=== PATIENT | male | born 1965 | race Caucasian/White ===

== ENCOUNTER 2016-11-09 22:49 | Inpatient (IN) | payer OTHER ==
[2016-11-09] MEDS ORDERED: DIPH,PERTUS(ACELL)TETVAC-LF 0.5 ML VIAL IM ONE (23:26)
[2016-11-09 23:56] LABS: Basophils % (A) 1 %; CH 34.1; CHCM 36.8; Eosinophils # (A) 0.1 k/uL (0-0.7); Eosinophils % (A) 1 %; HCT 38.5 % (39.0-53.0); HDW 2.82; HGB 13.4 gm/dL (13.0-17.5); Luc # (Auto) 0.12; Luc % (Auto) 2; Lymphocytes # (A) 1.9 k/uL (1.0-4.8); Lymphocytes % (A) 27 %; MCH 32.5 pg (25.0-35.0); MCHC 34.9 g/dL (31.0-37.0); MCV 93.1 fL (80.0-100.0); Mean Platelet Volume 7.9; Monocytes # (A) 0.4 k/uL (0-1.0); Monocytes % (A) 6 %; Neutrophils # (A) 4.5 k/uL (1.3-7.7); Neutrophils % (A) 63 %; RBC 4.13 m/uL (4.30-5.90); RDW 13.4 % (11.5-15.5)
--- NOTE | 2016-11-10 00:02 | XR ---
EXAM: XR Right Foot Complete, 3 or More Views CLINICAL HISTORY: Reason: Pain TECHNIQUE: Frontal, lateral and oblique views of the right foot. COMPARISON: No relevant prior studies available. FINDINGS: Bones/joints: Questionable fracture at the tip of distal phalanx of the third toe, best seen on image 1003 with 1 mm separation. Deformed proximal phalanx of the great toe suggest prior trauma. No dislocation. Soft tissues: Moderate amount of soft tissue swelling and plantar aspect of distal metatarsal and proximal phalanges of the toes suggest contusion versus infectious etiologies. No soft tissue emphysema or radiopaque foreign object. IMPRESSION: Questionable fracture at the tip of distal phalanx of the third toe with 1 mm separation Moderate amount of soft tissue swelling and plantar aspect of distal metatarsal and proximal phalanges of the toes suggest contusion versus infectious etiologies.
[2016-11-10 00:07] LABS: ALT 43 U/L (21-72); Alkaline Phosphatase 66 U/L (38-126); Anion Gap 10 mmol/L; Blood Urea Nitrogen 13 mg/dL (9-20); C Reactive Protein 38.7 mg/L (<10.0); Calcium 9.5 mg/dL (8.4-10.2); Carbon Dioxide 22 mmol/L (22-30); Chloride 106 mmol/L (98-107); Glucose 180 mg/dL (74-99); Non-African American GFR(MDRD) >60 (>60 ml/min/1.73 sqM); Potassium 4.1 mmol/L (3.5-5.1); Sodium 138 mmol/L (137-145); Total Bilirubin 0.9 mg/dL (0.2-1.3); Total Protein 6.6 g/dL (6.3-8.2)
[2016-11-10] MEDS ORDERED: CEFEPIME 2 GM in SODIUM CHLORIDE 0.9% 50 ML IVPB STA (00:15)
[2016-11-10] MEDS ORDERED: ACETAMINOPHEN TAB 325 MG TAB PO PRN (00:18)
[2016-11-10] MEDS ORDERED: IBUPROFEN 400 MG TAB PO PRN (00:18)
[2016-11-10] MEDS ORDERED: NALOXONE 0.4 MG/ML 1 ML VIAL IV PRN (00:18)
[2016-11-10] MEDS ORDERED: HYDROcodone/APAP 5-325MG 1 EACH TAB PO PRN (00:18)
--- NOTE | 2016-11-10 00:18 | ED ---
Lower Extremity Injury HPI - General Chief Complaint: Extremity Injury, Lower Stated Complaint: Foot Pain Time Seen by Provider: 11/09/16 23:23 Source: patient, RN notes reviewed Mode of arrival: ambulatory Limitations: no limitations - History of Present Illness Initial Comments: 51-year-old male presents emergency Department with chief complaint of right foot wound, infection. Patient states that he stepped on a nail 3 days ago and did not note because he has neuropathy. Patient states he finally figure out because he started noticing his foot was swollen. Patient states she also notes redness. Patient states the nail still in the issue up until today. states his tetanus is not up-to-date. Patient denies any fevers or chills. Patient states he does make it hard to ambulate on his foot secondary to the wound. - Related Data Home Medications Medication Instructions Recorded Confirmed Olmesartan [Benicar] 20 mg PO DAILY 02/17/15 07/07/15 metFORMIN HCL [Glucophage] 500 mg PO BID 02/17/15 07/07/15 Omeprazole [PriLOSEC] 20 mg PO AC-BID 07/05/15 07/07/15 Allergies Allergy/AdvReac Type Severity Reaction Status Date / Time levofloxacin [From Levaquin] Allergy Swelling, Verified 11/09/16 23:00 RASH Penicillins Allergy Unknown Verified 11/09/16 23:00 Childhood Review of Systems ROS Statement: Those systems with pertinent positive or pertinent negative responses have been documented in the HPI. ROS Other: All systems not noted in ROS Statement are negative. Past Medical History Past Medical History: Diabetes Mellitus, GERD/Reflux, Hypertension History of Any Multi-Drug Resistant Organisms: None Reported Past Surgical History: Tonsillectomy Past Anesthesia/Blood Transfusion Reactions: No Reported Reaction Past Psychological History: No Psychological Hx Reported Smoking Status: Former smoker Past Alcohol Use History: Rare Additional Past Alcohol Use History / Comment(s): STARTED SMOKING AT 23 SMOKED LESS 1/2PPD QUIT 1989 Past Drug Use History: None Reported - Past Family History Mother Family Medical History: Cancer Father Family Medical History: Cancer General Exam Limitations: no limitations General appearance: alert, in no apparent distress Respiratory exam: Present: normal lung sounds bilaterally. Absent: respiratory distress, wheezes, rales, rhonchi, stridor Cardiovascular Exam: Present: regular rate, normal rhythm, normal heart sounds. Absent: systolic murmur, diastolic murmur, rubs, gallop, clicks Extremities exam: Present: other (Right foot there is no open wound on the plantar surface just proximal to the fifth digit there is extensive erythema and swelling of the right foot pedal pulses are equal bilaterally) Course Vital Signs 11/09/16 22:56 Temperature 97.6 F Pulse Rate 74 Respiratory 16 Rate Blood Pressure 149/71 O2 Sat by Pulse 96 Oximetry Medical Decision Making - Medical Decision Making 51-year-old male presented for right foot infection. Patient is diabetic and had nail in his foot. There is concerns for pseudomonas risk. Patient does have an ALLERGY to penicillin and Levaquin. Patient was started on cefepime at this time for cellulitis. - Lab Data Result diagrams: 11/09/16 23:46 11/09/16 23:46 Lab Results 11/09/16 11/09/16 Range/Units 23:46 23:46 WBC 7.0 (3.8-10.6) k/uL RBC 4.13 L (4.30-5.90) m/uL Hgb 13.4 (13.0-17.5) gm/dL Hct 38.5 L (39.0-53.0) % MCV 93.1 (80.0-100.0) fL MCH 32.5 (25.0-35.0) pg MCHC 34.9 (31.0-37.0) g/dL RDW 13.4 (11.5-15.5) % Plt Count 135 L (150-450) k/uL Neutrophils % 63 % Lymphocytes % 27 % Monocytes % 6 % Eosinophils % 1 % Basophils % 1 % Neutrophils # 4.5 (1.3-7.7) k/uL Lymphocytes # 1.9 (1.0-4.8) k/uL Monocytes # 0.4 (0-1.0) k/uL Eosinophils # 0.1 (0-0.7) k/uL Basophils # 0.0 (0-0.2) k/uL Sodium 138 (137-145) mmol/L Potassium 4.1 (3.5-5.1) mmol/L Chloride 106 (98-107) mmol/L Carbon Dioxide 22 (22-30) mmol/L Anion Gap 10 mmol/L BUN 13 (9-20) mg/dL Creatinine 0.80 (0.66-1.25) mg/dL Est GFR (MDRD) Af Amer >60 (>60 ml/min/1.73 sqM) Est GFR (MDRD) Non-Af >60 (>60 ml/min/1.73 sqM) Glucose 180 H (74-99) mg/dL Calcium 9.5 (8.4-10.2) mg/dL Total Bilirubin 0.9 (0.2-1.3) mg/dL ALT 43 (21-72) U/L Alkaline Phosphatase 66 (38-126) U/L C-Reactive Protein 38.7 H (<10.0) mg/L Total Protein 6.6 (6.3-8.2) g/dL Albumin 4.1 (3.5-5.0) g/dL Disposition Clinical Impression: Cellulitis of right foot, Puncture wound of skin from metal nail Disposition: ADMITTED IP TO THIS HOSP Condition: Fair Referrals: Corrine Cabezas MD [Primary Care Provider] - 1-2 days
[2016-11-10 00:23] LABS: AST 22 U/L (17-59)
[2016-11-10 01:57] VITALS: BMI 31.4
[2016-11-10 07:43] LABS: Glucose,Whole Blood 173 mg/dL (75-99)
[2016-11-10] MEDS: PANTOPRAZOLE 40 MG TABLET PO SCH ×2 (07:46→17:54)
[2016-11-10] MEDS: LOSARTAN 50 MG TAB PO SCH (07:46)
[2016-11-10] MEDS: CEFEPIME 2 GM in SODIUM CHLORIDE 0.9% 50 ML IVPB SCH ×2 (11:18→22:10)
[2016-11-10 11:37] LABS: Glucose,Whole Blood 160 mg/dL (75-99)
[2016-11-10] MEDS: HEPARIN SODIUM,PORCINE 5,000 UNIT/ML 1 ML VIAL SQ SCH ×2 (13:55→20:32)
[2016-11-10 16:58] LABS: Glucose,Whole Blood 209 mg/dL (75-99)
[2016-11-10] MEDS: INSULIN LISPRO (humaLOG) 300 UNIT/3 ML VIAL SQ SCH ×2 (17:17→20:36)
[2016-11-10 20:24] LABS: Glucose,Whole Blood 162 mg/dL (75-99)
[2016-11-11 06:59] LABS: Glucose,Whole Blood 187 mg/dL (75-99)
[2016-11-11] MEDS: INSULIN LISPRO (humaLOG) 300 UNIT/3 ML VIAL SQ SCH ×4 (07:21→20:52)
[2016-11-11] MEDS: PANTOPRAZOLE 40 MG TABLET PO SCH ×2 (07:22→17:42)
[2016-11-11] MEDS: LOSARTAN 50 MG TAB PO SCH (07:23)
--- NOTE | 2016-11-11 07:27 | HP ---
DATE OF ADMISSION: 11/10/2016 Chief complaint is right foot pain and injury. HISTORY OF PRESENT ILLNESS: This 51-year-old gentleman with a past medical history of multiple medical problems including type 2 diabetes, GERD, hypertension, peripheral neuropathy, history of nicotine dependence being followed by Dr. Cabezas in the outpatient setting, apparently stepped on a nail about 3 days ago. Patient did not notice, the patient apparently walking around with the nail in the shoe. Patient found the nail later in the shoe and the patient admitted for further evaluation. Patient had complaints of redness and some discomfort and also some discharge. There is no history of fever, rigors or chills. No history of headache, loss of consciousness. Past medical history is diabetes mellitus, GERD, hypertension, history of peripheral neuropathy. Medications prior to admission: 1. Metformin 500 mg p.o. b.i.d. 2. Prilosec 20 mg daily p.r.n. 3. Benicar 20 mg daily. 4. Glucosamine 1000 mg daily. Allergies are LEVAQUIN and PENICILLIN. FAMILY HISTORY: History of cancer in the family. SOCIAL HISTORY: Previous history of smoking, occasional alcohol. REVIEW OF SYSTEMS: ENT: No diminishing hearing. No diminished vision. CARDIOVASCULAR SYSTEM: No angina or palpitation. RESPIRATORY: No cough. GI: No nausea. : No dysuria. NERVOUS SYSTEM: Numbness as mentioned earlier. ASTHMA/IMMUNOLOGY: Negative. MUSCULOSKELETAL: As mentioned earlier. HEMATOLOGY: No history of anemia. ENDOCRINE: Diabetes mellitus. CONSTITUTIONAL: Negative. DERMATOLOGY: Negative. RHEUMATOLOGY: Negative. PSYCHIATRY: As mentioned earlier. PHYSICAL EXAM: Patient is alert and oriented x3. The pulse is 73, blood pressure 129/57, respirations 16, temperature is 98.1, pulse ox is 96% on room air. HEENT: Conjunctivae normal, oral mucosa moist. NECK: No jugular venous distension, no carotid bruit, no lymph node enlargement. CARDIOVASCULAR SYSTEM: S1, S2 muffled. RESPIRATORY: Breath sounds diminished at the bases. No rhonchi, no crackles. ABDOMEN: Soft, obese, nontender. No mass palpable. EXTREMITIES: Bilateral leg minimal swelling and as well as right foot swelling, erythema, tenderness and also discharge in the right distal foot also present. LYMPHATICS: No lymph node enlargement in the neck or axillae. NERVOUS SYSTEM: Higher functions as mentioned, moves all 4 limbs. Sensory abnormality in both lower limbs as well as peripheral neuropathy. SKIN: As mentioned. LABS: WBC is 7, hemoglobin is 13.4, glucose is 180. C-Reactive protein 38.7. ASSESSMENT: 1. Diabetic right foot infection with systemic inflammatory response syndrome, with accidentally stepping on a nail. 2. Diabetes mellitus type 2. 3. Peripheral neuropathy. 4. Mild thrombocytopenia. 5. History of gastroesophageal reflux disease. 6. History of hypertension. 7. Remote history of nicotine dependence. 8. Obesity with body mass index 31.5. 9. FULL CODE. RECOMMENDATION: In this 51-year-old gentleman who presented with multiple complex medical issues, will monitor the patient closely. Continue with the current medication and continue with symptomatic treatment. has been initiated. Will follow the cultures. Will obtain orthopedic and as well as Infectious Disease consultations. The foot x-ray has been done, which showed questionable fracture of the tip of the distal phalanx of the third toe with 1 mm separation with moderate amount of soft tissue swelling. The prognosis is guarded. Further recommendations to follow. See orders for further details. Counseling has been given. DVT prophylaxis. GI prophylaxis. Resume the home medications. Repeat labs. Follow up cultures. Discussed with the patient who understands. A copy of this will be forwarded to Dr. Cabezas who is the primary physician. VLADISLAV
[2016-11-11] MEDS: HEPARIN SODIUM,PORCINE 5,000 UNIT/ML 1 ML VIAL SQ SCH ×2 (07:28→20:52)
[2016-11-11 08:13] LABS: Basophils % (A) 0 %; CH 33.8; CHCM 37.4; Eosinophils # (A) 0.1 k/uL (0-0.7); Eosinophils % (A) 2 %; HCT 39.1 % (39.0-53.0); HDW 3.12; HGB 14.5 gm/dL (13.0-17.5); Hyperchromasia Slight; Luc # (Auto) 0.14; Luc % (Auto) 3; Lymphocytes # (A) 1.5 k/uL (1.0-4.8); Lymphocytes % (A) 30 %; MCH 33.6 pg (25.0-35.0); MCHC 37.1 g/dL (31.0-37.0); MCV 90.8 fL (80.0-100.0); Mean Platelet Volume 6.9; Monocytes # (A) 0.2 k/uL (0-1.0); Monocytes % (A) 5 %; Neutrophils # (A) 3.1 k/uL (1.3-7.7); Neutrophils % (A) 60 %; RBC 4.31 m/uL (4.30-5.90); RDW 12.9 % (11.5-15.5); WBC 5.2 k/uL (3.8-10.6); WBC (Perox) 5.35
[2016-11-11 08:19] LABS: Anion Gap 11 mmol/L; Blood Urea Nitrogen 13 mg/dL (9-20); Calcium 9.2 mg/dL (8.4-10.2); Carbon Dioxide 25 mmol/L (22-30); Chloride 103 mmol/L (98-107); Glucose 187 mg/dL (74-99); Non-African American GFR(MDRD) >60 (>60 ml/min/1.73 sqM); Potassium 4.5 mmol/L (3.5-5.1); Sodium 139 mmol/L (137-145)
--- NOTE | 2016-11-11 08:35 | CONS ---
DATE OF CONSULTATION: 11/10/2016 Reason for consultation in right foot infection. HISTORY OF PRESENT ILLNESS: The patient is a 51-year-old male who does have underlying diabetes mellitus and neuropathy. He has no sensation in the foot. The patient said that Friday morning his noticed some blood on the bathroom floor. When she checked over his foot, she noted there was a small blister at the base of the fifth toe. The patient did use his work boots and worked that day. The next morning, he noticed some blood on his socks. He continued to work same day; however, later on Friday night, the daughter noticed there was a nail in his shoe. Subsequently, the patient noticed the foot becoming more swollen, more red and no significant ( ) except some bleeding and drainage with worsening swelling, redness. He came to [facility] ER. The patient seen and evaluated by the ER physician. The patient did have an x-ray of the foot which did show the possibility of fracture of the distal phalanx of the third toe with 1 mm separation and some soft tissue swelling but no significant abnormality was noticed on the fifth toe. Patient maintained with cefepime. I was asked to see the patient for further recommendation regarding antibiotic therapy. REVIEW OF SYSTEMS: CONSTITUTIONAL: Positive for weakness, denies any high-grade fever. EYES: No complaint. ENT: No complaint. RESPIRATORY: No complaint. CARDIOVASCULAR: No complaint. GENITOURINARY: No complaint. GASTROINTESTINAL: No complaint. MUSCULOSKELETAL: As per HPI. HEMATOLOGY: per HPI. PSYCHOLOGICAL: No complaint. ENDOCRINE: Diabetes mellitus. NEUROLOGICAL: No complaint. PAST MEDICAL HISTORY: Diabetes mellitus, gastroesophageal reflux disease, hypertension. PAST SURGICAL HISTORY: Tonsillectomy. SOCIAL HISTORY: Remote history of smoking, quite back in 1989. Rarely drinks. No drug use. FAMILY HISTORY: Both parents had history of cancer. Allergies to PENICILLIN and LEVOFLOXACIN, tolerated cephalosporin without any problem. Medications include patient is currently on Tylenol, [place], cefepime 2 gm q.12, heparin, Motrin, Humalog, Cozaar, Narcan and Protonix. On examination, blood pressure is 129/57 with a pulse of 73, temperature 98.1. He is 96% on room air. General description is middle-aged male, lying in bed in no distress, no tachypnea or accessory muscle for respiration use. HEENT examination showed no pallor or scleral icterus, oral mucosa is moist. NECK: Trachea central, no thyromegaly. LUNGS: Unlabored breathing. Clear to auscultation anteriorly. No wheeze or crackle. HEART: S1, S2. Regular rate and rhythm. ABDOMEN: Soft. No tenderness, no guarding, no rigidity. Examination of the right foot ( ), redness mostly on the lateral aspect on the base of the fifth toe. There is a small superficial wound with some bleeding. Wound cultures were obtained. NEUROLOGICAL: Patient is awake, alert, oriented x3. LABS: Hemoglobin is 13.4, white count of 7.0 with BUN of 13, creatinine 0.80. ( ) DIAGNOSTIC IMPRESSION AND PLAN: 1. Patient with right foot cellulitis, traumatic started out as a trauma from a nail that has been walking on for almost 2 days with some significant cellulitis and wound, the likely cause would be the positive liu or ( ) nail. A gram-negative infection could not be entirely excluded, especially Pseudomonas. 2. Patient has multiple antibiotic allergies that will limit the number of antibiotics that will be safe to use. PLAN: 1. Wound culture has been obtained regarding antibiotic therapy. 2. Will pack the would with Aquacel Silver dressing. 3. Cefepime 2 gm 2 times to continue ( ) with gram-negative or gram-positive. 4. We will follow up on the clinical condition and cultures to further adjust the medication if needed. Thank you for this consultation. Will follow this patient along with you.
[2016-11-11 09:20] LABS: Hemoglobin A1C 6.8 % (4.2-6.1)
--- NOTE | 2016-11-11 10:16 | P.CNOR ---
History of Present Illness - HPI Consult date: 11/11/16 Requesting physician: Heron Chiu Consult reason: other (Right foot Infection) History of present illness: Patient is a pleasant 51-year-old male seen at bedside this morning. Orthopedics was consulted for right foot infection. He is a diabetic and has chronic peripheral neuropathy. He states he noticed a nail in his shoe on 11/09/2016, which he thinks it had been in place for a few days. He presented to the ER with erythema about the right foot as well as discharge between the fourth and fifth digits of the right foot from nail puncture. He was admitted to the emergency department to medicine where infectious disease has also been consulted. He and his feel he may be improved today. He is denying fever, chills, calf pain. There is no pain at the right foot. Review of systems is negative for chest pain, shortness breath, nausea, vomiting, dizziness, headaches, slurred speech or other. Review of Systems All systems: negative Constitutional: Denies chills, Denies fever Eyes: denies blurred vision, denies pain Ears, nose, mouth and throat: Denies headache, Denies sore throat Cardiovascular: Denies chest pain, Denies shortness of breath Respiratory: Denies cough Gastrointestinal: Denies abdominal pain, Denies diarrhea, Denies nausea, Denies vomiting Musculoskeletal: Denies myalgias Integumentary: Denies pruritus, Denies rash Neurological: Denies migraines, Denies weakness Psychiatric: Denies anxiety, Denies depression Endocrine: Denies fatigue, Denies weight change Past Medical History Past Medical History: Diabetes Mellitus, GERD/Reflux, Hypertension History of Any Multi-Drug Resistant Organisms: None Reported Past Surgical History: Tonsillectomy Past Anesthesia/Blood Transfusion Reactions: No Reported Reaction Past Psychological History: No Psychological Hx Reported Smoking Status: Former smoker Past Alcohol Use History: Rare Additional Past Alcohol Use History / Comment(s): STARTED SMOKING AT 23 SMOKED LESS 1/2PPD QUIT 1989 Past Drug Use History: None Reported - Past Family History Mother Family Medical History: Cancer Father Family Medical History: Cancer Medications and Allergies Home Medications Medication Instructions Recorded Confirmed Type Olmesartan [Benicar] 20 mg PO DAILY 02/17/15 11/10/16 History metFORMIN HCL [Glucophage] 500 mg PO BID 02/17/15 11/10/16 History Omeprazole [PriLOSEC] 20 mg PO DAILY PRN 07/05/15 11/10/16 History Glucosamine Sulfate 1,000 mg PO DAILY 11/10/16 11/10/16 History Allergies Allergy/AdvReac Type Severity Reaction Status Date / Time levofloxacin [From Levaquin] Allergy Swelling, Verified 11/10/16 08:35 RASH Penicillins Allergy Unknown Verified 11/10/16 08:35 Childhood Physical Examination Inspection of the right foot shows some mild erythema at the dorsum of the near the base of the fourth and fifth digits. Is no bony abnormality. There is a wound in the webspace between the fourth and fifth digit with mild necrosis and mild presence of purulence. There is no active bleeding or active drainage. The plantar surface of the foot appears to be benign. There is no diffuse erythema or swelling. The calf is soft and nontender. He has active motor throughout the right lower extremity. He has minimal sensation to touch throughout the right foot which has been chronic due to his peripheral neuropathy. 2+ dorsalis pedis pulse and less than 2 second cap refill is present. Results Initial cultures of the wound is showing staph. X-rays of the right foot show no fractures or dislocations. There is soft tissue swelling. - Labs Labs: Abnormal Lab Results - Last 24 Hours (Table) 11/09/16 11/10/16 11/10/16 Range/Units 23:46 11:33 16:48 MCHC (31.0-37.0) g/dL Plt Count (150-450) k/uL Glucose (74-99) mg/dL POC Glucose (mg/dL) 160 H 209 H (75-99) mg/dL Hemoglobin A1c 6.8 H (4.2-6.1) % 11/10/16 11/11/16 11/11/16 Range/Units 20:23 06:57 07:19 MCHC 37.1 H (31.0-37.0) g/dL Plt Count 135 L (150-450) k/uL Glucose (74-99) mg/dL POC Glucose (mg/dL) 162 H 187 H (75-99) mg/dL Hemoglobin A1c (4.2-6.1) % 11/11/16 Range/Units 07:19 MCHC (31.0-37.0) g/dL Plt Count (150-450) k/uL Glucose 187 H (74-99) mg/dL POC Glucose (mg/dL) (75-99) mg/dL Hemoglobin A1c (4.2-6.1) % Microbiology - Last 24 Hours (Table) 11/09/16 23:46 Blood Culture - Preliminary Blood No Growth after 24 hours 11/10/16 16:07 Gram Stain - Preliminary Toe - Right Fifth Wound Culture - Preliminary H & H 11/09/16 11/11/16 Range/Units 23:46 07:19 Hgb 13.4 14.5 (13.0-17.5) gm/dL Hct 38.5 L 39.1 (39.0-53.0) % Result Diagrams: 11/11/16 07:19 11/11/16 07:19 - Diagnostic results Ankle/Foot x-ray: report reviewed, image reviewed Assessment and Plan (1) Cellulitis of right foot Narrative/Plan: I recommended maintaining elevation of the right lower extremity above his heart. I've also recommended doing warm soapy soaks of the right foot 2 to 3 times per day. Continue with IV antibiotics per infectious disease. His pain is controlled. His foot appears to be improved today in comparison to photos that were taken on 11/09/2016. We will continue to monitor and make further recommendations as appropriate. Thank you for the consult Status: Acute Time with Patient: Less than 30
[2016-11-11] MEDS: CEFEPIME 2 GM in SODIUM CHLORIDE 0.9% 50 ML IVPB SCH ×2 (10:48→23:59)
[2016-11-11 11:33] LABS: Glucose,Whole Blood 177 mg/dL (75-99)
[2016-11-11 17:11] LABS: Glucose,Whole Blood 154 mg/dL (75-99)
--- NOTE | 2016-11-11 20:09 | PN ---
DATE OF SERVICE: 11/11/2016 This 51-year-old gentleman who was admitted with right foot cellulitis secondary to hematoma from a nail is being closely monitored. Infectious Disease as well as Orthopedic Surgery are following the patient closely. The patient is on broad-spectrum IV antibiotics at this time. No chest pain. No palpitation. No fever. On exam, alert and oriented x3. Pulse is 73, blood pressure 138/63, respiration 16, temperature 98.0, pulse ox 96% on room air. HEENT: Conjunctivae normal. Oral mucosa moist. NECK: No jugular venous distention. No carotid bruit. CARDIOVASCULAR SYSTEM: S1, S2 muffled. No S3. No S4. RESPIRATORY SYSTEM: Breath sounds diminished at the bases. No rhonchi. No crackles. ABDOMEN: Soft, non-tender. LEGS: Right leg swelling and erythema present. Some discharge also present. NERVOUS SYSTEM: No focal deficit. sensory abnormality in the lower limbs suggestive of peripheral neuropathy. LABS: WBC 5.2. Platelets 135. Sodium 139. Accu-Cheks 187. ASSESSMENT: 1. Acute diabetic right foot infection and cellulitis with systemic inflammatory response syndrome after trauma with a nail. 2. Diabetes mellitus, type 2. 3. Peripheral neuropathy secondary to diabetes mellitus, type 2. 4. Mild thrombocytopenia. 5. History of gastroesophageal reflux disease. 6. History of hypertension, essential. 7. Remote history of nicotine dependence. 8. Obesity with body mass index of 31.5. 9. FULL CODE. RECOMMENDATIONS AND DISCUSSION: I recommend to continue with the current medications, continue with the monitoring, symptomatic treatment. Otherwise, at this time recommend continuing the IV cefepime. Follow the cultures. Otherwise, closely follow with Infectious Disease Orthopedic Surgery. Further recommendations to follow. MTDD
[2016-11-11 20:23] LABS: Glucose,Whole Blood 318 mg/dL (75-99)
--- NOTE | 2016-11-11 22:46 | PN ---
DATE OF SERVICE: 11/11/2016 REASON FOR FOLLOWUP: Right foot wound with cellulitis. INTERVAL HISTORY: The patient is afebrile. Denies any significant pain to his right foot area ( ) underlying neuropathy. Overall swelling and redness have slightly improved. No drainage. Denies significant chest pain, shortness of breath or cough. On examination, blood pressure is 127/74 with a pulse of 74, temperature 98. He is 94% on room air. General description is a middle-aged male lying in bed in no distress. RESPIRATORY SYSTEM: Unlabored breathing. Clear to auscultation anteriorly. HEART: S1, S2. Regular rate and rhythm. ABDOMEN: Soft. No tenderness. Right foot did have a small wound ( ) overall swelling and redness have slightly improved. No drainage. LABS: Hemoglobin 14.5, white count 5.2 with a BUN of 13, creatinine 0.82. DIAGNOSTIC IMPRESSION AND PLAN: Patient with a right foot wound at the base of the fifth toe from a nail that he walked on for 2 days with secondary cellulitis, currently covered with cefepime. Waiting for the cultures to finalize. Local wound care with Aquacel Silver packing. Continue supportive care.
[2016-11-12 07:09] LABS: Glucose,Whole Blood 180 mg/dL (75-99)
[2016-11-12 07:15] VITALS: RESP 16
[2016-11-12 07:51] LABS: Anion Gap 10 mmol/L; Blood Urea Nitrogen 12 mg/dL (9-20); Calcium 9.2 mg/dL (8.4-10.2); Carbon Dioxide 23 mmol/L (22-30); Chloride 105 mmol/L (98-107); Glucose 187 mg/dL (74-99); Non-African American GFR(MDRD) >60 (>60 ml/min/1.73 sqM); Sodium 138 mmol/L (137-145)
[2016-11-12 07:54] LABS: Basophils % (A) 1 %; CH 33.9; CHCM 36.2; Eosinophils # (A) 0.1 k/uL (0-0.7); Eosinophils % (A) 2 %; HCT 43.3 % (39.0-53.0); HDW 2.99; HGB 15.3 gm/dL (13.0-17.5); Luc # (Auto) 0.14; Luc % (Auto) 3; Lymphocytes # (A) 1.5 k/uL (1.0-4.8); Lymphocytes % (A) 29 %; MCH 33.3 pg (25.0-35.0); MCHC 35.4 g/dL (31.0-37.0); Mean Platelet Volume 7.2; Monocytes # (A) 0.3 k/uL (0-1.0); Monocytes % (A) 6 %; Neutrophils % (A) 59 %; RBC 4.61 m/uL (4.30-5.90); RDW 13.2 % (11.5-15.5); WBC 5.1 k/uL (3.8-10.6); WBC (Perox) 4.92
[2016-11-12] MEDS: INSULIN LISPRO (humaLOG) 300 UNIT/3 ML VIAL SQ SCH ×5 (08:01→20:59)
[2016-11-12] MEDS: PANTOPRAZOLE 40 MG TABLET PO SCH ×2 (08:05→18:03)
[2016-11-12] MEDS: HEPARIN SODIUM,PORCINE 5,000 UNIT/ML 1 ML VIAL SQ SCH ×2 (08:05→20:59)
[2016-11-12] MEDS: LOSARTAN 50 MG TAB PO SCH (08:06)
[2016-11-12 11:23] LABS: Glucose,Whole Blood 230 mg/dL (75-99)
--- NOTE | 2016-11-12 12:06 | P.PN ---
Subjective Principal diagnosis: Right foot cellulitis, wound infection Patient is 51 yo male seen at bedside today. We are following for right foot infection. It appears to be improving. He has no new complaints today. He denies calf pain, fever, chills, chest pain or shortness of breath. Objective - Vital Signs Vital signs: Vital Signs Temp 98.5 F 11/12/16 07:00 Pulse 52 L 11/12/16 07:00 Resp 16 11/12/16 07:00 BP 123/65 11/12/16 07:00 Pulse Ox 97 11/12/16 07:00 Intake & Output 11/11/16 11/12/16 11/12/16 18:59 06:59 18:59 Intake Total 50 240 Balance 50 240 Intake: Intake, IV Titration 50 Amount Cefepime 2 gm In Sodium 50 Chloride 0.9% 50 ml @ 100 mls/hr IVPB Q12H MOOSE Rx# :[id number] Oral 240 Other: Voiding Method Toilet Toilet # Voids 1 - Exam Wound at webspace between 4th and 5th digits of right foot shows some improvement vs yesterday. There is no active bleeding or drainage. There is mild erythema at the dorsum of the foot near base of digits. It appears mildly improved. Neurovascular status with motor intact throughout RLE. He has chronic numbness. 2+ cap refill present and less than 2 sec DP pulses present. - Constitutional General appearance: Present: no acute distress - Psychiatric Psychiatric: Present: A&O x's 3, appropriate affect, intact judgment & insight - Labs CBC & Chem 7: 11/12/16 07:25 11/12/16 07:25 Labs: Abnormal Lab Results - Last 24 Hours (Table) 11/11/16 11/11/16 11/12/16 Range/Units 17:09 20:21 06:57 Glucose (74-99) mg/dL POC Glucose (mg/dL) 154 H 318 H 180 H (75-99) mg/dL 11/12/16 11/12/16 Range/Units 07:25 11:22 Glucose 187 H (74-99) mg/dL POC Glucose (mg/dL) 230 H (75-99) mg/dL Microbiology - Last 24 Hours (Table) 11/09/16 23:46 Blood Culture - Preliminary Blood No Growth after 48 hours Assessment and Plan (1) Cellulitis of right foot Narrative/Plan: I have recommended continuing elevation of the right lower extremity above his heart, doing warm soapy soaks of the right foot 2 to 3 times per day, and IV antibiotics per infectious disease. We will continue to monitor and make further recommendations as appropriate. Status: Acute Time with Patient: Less than 30
[2016-11-12] MEDS ORDERED: IV VANCOMYCIN PER PHARMACY 1 EACH MISC MISCELLANE PRN (12:53)
[2016-11-12] MEDS: CEFEPIME 2 GM in SODIUM CHLORIDE 0.9% 50 ML IVPB SCH (13:40)
[2016-11-12] MEDS ORDERED: VANCOMYCIN 2,250 MG in SODIUM CHLORIDE 0.9% 500 ML IVPB ONE (14:00)
[2016-11-12 16:59] LABS: Glucose,Whole Blood 165 mg/dL (75-99)
--- NOTE | 2016-11-12 17:15 | P.PN ---
Subjective Date of service 11/12/2016. Progress note being dictated for Dr. Szymanski interval history: This is a 51-year-old gentleman admitted with right foot wound with cellulitis in a patient with history of diabetes. Patient states swelling improved but redness slightly worsened today, no drainage. Diabetic neuropathy, denies sensation of extremity. maintain on cefepime with addition of vancomycin today as per infectious disease. cultures in progress. Afebrile. Blood sugars uncontrolled. denies chest pain, palpitations or increasing shortness of breath. Objective - Vital Signs Vital signs: Vital Signs Temp 98.5 F 11/12/16 07:00 Pulse 52 L 11/12/16 08:00 Resp 16 11/12/16 08:00 BP 123/65 11/12/16 07:00 Pulse Ox 97 11/12/16 07:00 Intake & Output 11/11/16 11/12/16 11/12/16 18:59 06:59 18:59 Intake Total 50 240 Balance 50 240 Intake: Intake, IV Titration 50 Amount Cefepime 2 gm In Sodium 50 Chloride 0.9% 50 ml @ 100 mls/hr IVPB Q12H [facility] Rx# :[id number] Oral 240 Other: Voiding Method Toilet Toilet Toilet # Voids 1 1 - Exam PHYSICAL EXAM: VITAL SIGNS: [ as above] GENERAL: [ sitting up in bed, right leg elevated on pillow, no acute] HEENT: [Pupils equal conjunctiva normal. oral mucosa moist] NECK: [Supple, no JVD] RESPIRATORY EFFORT:[ normal] LUNGS: [ lungs to auscultation, no wheezes rhonchi or crackles] CARDIOVASCULAR[ regular S1 and S2, no murmurs rubs or gallops,] GI: [Abdomen soft, nontender, positive bowel sounds.] PSYCH: [Alert and oriented -3, mood and affect normal.] SKIN: [ right foot Improved edema, mildly increased redness, no drainage, increased warmth] NEURO: no focal deficits, moves all 4 extremities, strength intact, decreased sensation of lower extremities - Labs CBC & Chem 7: 11/12/16 07:25 11/12/16 07:25 Labs: Abnormal Lab Results - Last 24 Hours (Table) 11/11/16 11/11/16 11/12/16 Range/Units 17:09 20:21 06:57 Glucose (74-99) mg/dL POC Glucose (mg/dL) 154 H 318 H 180 H (75-99) mg/dL 11/12/16 11/12/16 Range/Units 07:25 11:22 Glucose 187 H (74-99) mg/dL POC Glucose (mg/dL) 230 H (75-99) mg/dL Microbiology - Last 24 Hours (Table) 11/09/16 23:46 Blood Culture - Preliminary Blood No Growth after 48 hours Assessment and Plan Plan: 1. [ acute diabetic right foot cellulitis status post trauma with a nail]. 2. [ diabetes mellitus type 2]. 3. [ peripheral neuropathy secondary diabetes mellitus type 2]. 4. [ mild thrombocytopenia]. 5. [ gastroesophageal reflux disease]. 6. [ essential hypertension]. 7. [ remote history of nicotine dependence]. plan:continue on current medication regime ,monitoring and symptomatic treatment. Continue on dual antibiotics, local wound care as per infectious disease, cultures pending. discharge planning in progress pending final cultures activities, clearance from infectious disease. TIghter blood sugar control, metformin added with additional pre-meal insulin added. close monitoring of Accu-Cheks. The impression and plan of care has been dictated as directed. : I performed a H&P examination of this patient and discussed the same with the dictator. I agree with the dictator's note. Any additional findings/opinions/ etc. will be noted.
[2016-11-12] MEDS: metFORMIN 500 MG TAB PO SCH (21:00)
[2016-11-12 21:17] LABS: Glucose,Whole Blood 173 mg/dL (75-99)
[2016-11-12] MEDS: VANCOMYCIN 2,000 MG in SODIUM CHLORIDE 0.9% 500 ML IVPB SCH (21:30)
[2016-11-13] MEDS: CEFEPIME 2 GM in SODIUM CHLORIDE 0.9% 50 ML IVPB SCH ×2 (00:45→12:06)
[2016-11-13] MEDS: VANCOMYCIN 2,000 MG in SODIUM CHLORIDE 0.9% 500 ML IVPB SCH ×3 (05:46→22:30)
--- NOTE | 2016-11-13 06:26 | PN ---
DATE OF SERVICE: 11/12/2016 Reason for followup is right foot cellulitis. INTERVAL HISTORY: The patient is afebrile. His ( ). Denied any chest pain, shortness of breath or cough. ( ) pain right foot area, no drainage. On examination, blood pressure is 138/70 with a pulse of 71, temperature 97.6. He is 98% on room air. General description is a middle-age male lying in bed in no distress. RESPIRATORY SYSTEM: Unlabored breathing. Clear to auscultation anteriorly. HEART: S1, S2. Regular rate and rhythm. ABDOMEN: Soft. No tenderness. Right foot the swelling and redness of the dorsum has slightly increased compared to yesterday. Overall wound to the base of the fifth toe has dried out with no drainage. LABS: Hemoglobin is 15.3, white count 5.1. BUN of 12, creatinine 0.96. Culture so far negative. DIAGNOSTIC IMPRESSION AND PLAN: Patient with right foot cellulitis in a patient noted to have a nail injury to the base of the fifth toe. Currently on cefepime with worsening of the redness has been noticed. Vancomycin will be added. I will evaluate the patient tomorrow. Continue supportive care.
[2016-11-13 07:08] LABS: Glucose,Whole Blood 185 mg/dL (75-99)
[2016-11-13] MEDS: INSULIN LISPRO (humaLOG) 300 UNIT/3 ML VIAL SQ SCH ×7 (07:50→21:20)
[2016-11-13] MEDS: metFORMIN 500 MG TAB PO SCH ×2 (07:51→21:20)
[2016-11-13] MEDS: PANTOPRAZOLE 40 MG TABLET PO SCH ×2 (07:51→17:58)
[2016-11-13] MEDS: HEPARIN SODIUM,PORCINE 5,000 UNIT/ML 1 ML VIAL SQ SCH ×2 (07:52→21:20)
[2016-11-13] MEDS: LOSARTAN 50 MG TAB PO SCH (07:52)
[2016-11-13 08:00] LABS: Basophils % (A) 1 %; CH 33.7; CHCM 37.4; Eosinophils # (A) 0.2 k/uL (0-0.7); Eosinophils % (A) 3 %; HCT 42.1 % (39.0-53.0); HDW 3.29; HGB 15.3 gm/dL (13.0-17.5); Hyperchromasia Slight; Luc # (Auto) 0.16; Luc % (Auto) 3; Lymphocytes % (A) 31 %; MCH 32.8 pg (25.0-35.0); MCHC 36.3 g/dL (31.0-37.0); MCV 90.4 fL (80.0-100.0); Mean Platelet Volume 6.9; Monocytes # (A) 0.3 k/uL (0-1.0); Monocytes % (A) 4 %; Neutrophils # (A) 3.7 k/uL (1.3-7.7); Neutrophils % (A) 59 %; RBC 4.66 m/uL (4.30-5.90); RDW 12.7 % (11.5-15.5); WBC 6.3 k/uL (3.8-10.6); WBC (Perox) 6.71
[2016-11-13 08:09] LABS: Anion Gap 13 mmol/L; Blood Urea Nitrogen 13 mg/dL (9-20); Calcium 9.4 mg/dL (8.4-10.2); Carbon Dioxide 21 mmol/L (22-30); Chloride 105 mmol/L (98-107); Glucose 183 mg/dL (74-99); Non-African American GFR(MDRD) >60 (>60 ml/min/1.73 sqM); Potassium 4.3 mmol/L (3.5-5.1); Sodium 139 mmol/L (137-145)
[2016-11-13 12:21] LABS: Glucose,Whole Blood 155 mg/dL (75-99)
--- NOTE | 2016-11-13 12:59 | P.PN ---
Subjective Principal diagnosis: Right foot cellulitis, wound infection Patient is 51 yo male seen at bedside today. We are following for right foot infection. It appears that he continues to improve. He has no new complaints today. He denies calf pain, fever, chills, chest pain or shortness of breath. Objective - Vital Signs Vital signs: Vital Signs Temp 98.6 F 11/13/16 07:00 Pulse 56 L 11/13/16 08:00 Resp 16 11/13/16 08:00 BP 119/71 11/13/16 07:00 Pulse Ox 97 11/13/16 07:00 Intake & Output 11/12/16 11/13/16 11/13/16 18:59 06:59 18:59 Intake Total 1270 Balance 1270 Weight 127.006 kg Intake: Intake, IV Titration 550 Amount Cefepime 2 gm In Sodium 50 Chloride 0.9% 50 ml @ 100 mls/hr IVPB Q12H [facility] Rx# :[id number] Vancomycin 2,000 mg In 500 Sodium Chloride 0.9% 500 ml @ 167 mls/hr IVPB Q8H [facility] Rx#:[id number] Oral 720 Other: Voiding Method Toilet Toilet Toilet # Voids 4 1 1 - Exam Wound at webspace between 4th and 5th digits of right foot continues to show some improvement. There is no active bleeding or drainage. There is mild erythema at the dorsum of the foot near base of digits. It appears the same or mildly improved. Neurovascular status with motor intact throughout RLE. He has chronic numbness. 2+ cap refill present and less than 2 sec DP pulses present. - Constitutional General appearance: Present: no acute distress - Psychiatric Psychiatric: Present: A&O x's 3, appropriate affect, intact judgment & insight - Labs CBC & Chem 7: 11/13/16 07:38 11/13/16 07:38 Labs: Abnormal Lab Results - Last 24 Hours (Table) 11/12/16 11/12/16 11/13/16 Range/Units 16:53 20:56 06:56 Carbon Dioxide (22-30) mmol/L Glucose (74-99) mg/dL POC Glucose (mg/dL) 165 H 173 H 185 H (75-99) mg/dL 11/13/16 11/13/16 Range/Units 07:38 12:20 Carbon Dioxide 21 L (22-30) mmol/L Glucose 183 H (74-99) mg/dL POC Glucose (mg/dL) 155 H (75-99) mg/dL Microbiology - Last 24 Hours (Table) 11/09/16 23:46 Blood Culture - Preliminary Blood No Growth after 72 hours 11/10/16 16:07 Gram Stain - Final Toe - Right Fifth Wound Culture - Final Assessment and Plan (1) Cellulitis of right foot Narrative/Plan: He will continue with elevation of the right lower extremity above his heart, doing warm soapy soaks of the right foot 2 to 3 times per day, and IV antibiotics per infectious disease. He may discharged tomorrow with a PICC line and IV antibiotics per infectious disease. We will continue to monitor and make further recommendations as appropriate. Status: Acute Time with Patient: Less than 30
--- NOTE | 2016-11-13 16:01 | PN ---
DATE OF SERVICE: 11/13/2016 Reason for follow-up is right foot wound and cellulitis. INTERVAL HISTORY: The patient is afebrile. Overall swelling and redness of the right foot has slightly improved compared to yesterday. No drainage. The patient denies significant chest pain, shortness of breath or cough. No abdominal pain and no diarrhea. On examination, blood pressure 119/71 with a pulse of 86, temperature 98.6. He is 97% on room air. General description is a middle-aged male lying in bed in no distress. RESPIRATORY SYSTEM: Unlabored breathing. Clear to auscultation anteriorly. HEART: S1, S2. Regular rate and rhythm. ABDOMEN: Soft, no tenderness. Right foot dorsum swelling and redness has slightly improved. The wound base looks clean and drying out. No drainage. LABS: Hemoglobin is 15.1, white count 6.2 with a BUN of 13, creatinine 0.9 and the cultures so far negative. DIAGNOSTIC IMPRESSION AND PLAN: Patient with right foot wound and cellulitis after stepping on nail. The patient did respond very well to cefepime, however did have overall improvement with the vancomycin ( ) yesterday. We will try to arrange for the vancomycin, pharmacy to dose, for 2 weeks with outpatient follow-up. Once arranged, the PICC line should be placed. Plan of care discussed with the attending physician as well as the foster care case manager.
[2016-11-13 17:39] LABS: Glucose,Whole Blood 152 mg/dL (75-99)
--- NOTE | 2016-11-13 18:39 | P.PN ---
Subjective Date of service 11/13/2016. Progress note being dictated for Dr. Szymanski interval history: This is a 51-year-old gentleman admitted with right foot wound with cellulitis in a patient with history of diabetes. Yesterday redness , edema slightly worsened , vancomycin added to antibiotic regimen with significant improvement. Denies abdomen drainage. Cefepime has been discontinued, PICC line being arranged for outpatient vancomycin IV antibiotic therapy. Afebrile. Blood sugars controlled. denies chest pain, palpitations or increasing shortness of breath. Objective - Vital Signs Vital signs: Vital Signs Temp 98.1 F 11/13/16 14:47 Pulse 59 L 11/13/16 16:00 Resp 16 11/13/16 16:00 BP 121/58 11/13/16 14:47 Pulse Ox 97 11/13/16 14:47 Intake & Output 11/12/16 11/13/16 11/13/16 18:59 06:59 18:59 Intake Total 1270 1750 Balance 1270 1750 Weight 127.006 kg Intake: Intake, IV Titration 550 550 Amount Cefepime 2 gm In Sodium 50 50 Chloride 0.9% 50 ml @ 100 mls/hr IVPB Q12H [facility] Rx# :[id number] Vancomycin 2,000 mg In 500 500 Sodium Chloride 0.9% 500 ml @ 167 mls/hr IVPB Q8H [facility] Rx#:[id number] Oral 720 1200 Other: Voiding Method Toilet Toilet Toilet # Voids 4 1 1 - Exam PHYSICAL EXAM: VITAL SIGNS: [ as above] GENERAL: [ sitting up in bed, right leg elevated on pillow, no acute] HEENT: [Pupils equal conjunctiva normal. oral mucosa moist] NECK: [Supple, no JVD] RESPIRATORY EFFORT:[ normal] LUNGS: [ lungs to auscultation, no wheezes rhonchi or crackles] CARDIOVASCULAR[ regular S1 and S2, no murmurs rubs or gallops,] GI: [Abdomen soft, nontender, positive bowel sounds.] PSYCH: [Alert and oriented -3, mood and affect normal.] SKIN: [ right foot Improved edema and redness, no drainage NEURO: no focal deficits, moves all 4 extremities, strength intact, decreased sensation of lower extremities - Labs CBC & Chem 7: 11/13/16 07:38 11/13/16 07:38 Labs: Abnormal Lab Results - Last 24 Hours (Table) 11/12/16 11/13/16 11/13/16 Range/Units 20:56 06:56 07:38 Carbon Dioxide 21 L (22-30) mmol/L Glucose 183 H (74-99) mg/dL POC Glucose (mg/dL) 173 H 185 H (75-99) mg/dL 11/13/16 11/13/16 Range/Units 12:20 17:17 Carbon Dioxide (22-30) mmol/L Glucose (74-99) mg/dL POC Glucose (mg/dL) 155 H 152 H (75-99) mg/dL Microbiology - Last 24 Hours (Table) 11/09/16 23:46 Blood Culture - Preliminary Blood No Growth after 72 hours 11/10/16 16:07 Gram Stain - Final Toe - Right Fifth Wound Culture - Final Assessment and Plan Plan: 1. [ acute diabetic right foot cellulitis status post trauma with a nail]. 2. [ diabetes mellitus type 2]. 3. [ peripheral neuropathy secondary diabetes mellitus type 2]. 4. [ mild thrombocytopenia]. 5. [ gastroesophageal reflux disease]. 6. [ essential hypertension]. 7. [ remote history of nicotine dependence]. plan:continue on current medication regime ,monitoring and symptomatic treatment. Antibiotics/Wound Care as per infectious disease. discharge planning in progress pending PICC line placement. Further recommendations to follow. The impression and plan of care has been dictated as directed. : I performed a H&P examination of this patient and discussed the same with the dictator. I agree with the dictator's note. Any additional findings/opinions/ etc. will be noted.
[2016-11-13 20:45] LABS: Glucose,Whole Blood 148 mg/dL (75-99)
[2016-11-13] MEDS ORDERED: VANCOMYCIN TROUGH DUE 1 EACH MISC MISCELLANE ONE (21:00)
[2016-11-14] MEDS: VANCOMYCIN 2,000 MG in SODIUM CHLORIDE 0.9% 500 ML IVPB SCH (06:04)
[2016-11-14 07:19] LABS: Glucose,Whole Blood 165 mg/dL (75-99)
[2016-11-14] MEDS: INSULIN LISPRO (humaLOG) 300 UNIT/3 ML VIAL SQ SCH ×2 (07:34→07:35)
[2016-11-14 07:36] VITALS: TEMP 97.5
[2016-11-14] MEDS: HEPARIN SODIUM,PORCINE 5,000 UNIT/ML 1 ML VIAL SQ SCH (07:36)
[2016-11-14] MEDS: metFORMIN 500 MG TAB PO SCH (07:36)
[2016-11-14] MEDS: PANTOPRAZOLE 40 MG TABLET PO SCH (07:36)
[2016-11-14 08:06] LABS: Basophils % (A) 1 %; CHCM 37.4; Eosinophils # (A) 0.1 k/uL (0-0.7); Eosinophils % (A) 3 %; HCT 41.3 % (39.0-53.0); HDW 3.32; HGB 14.7 gm/dL (13.0-17.5); Hyperchromasia Slight; Luc # (Auto) 0.13; Luc % (Auto) 3; Lymphocytes # (A) 1.6 k/uL (1.0-4.8); Lymphocytes % (A) 37 %; MCH 32.5 pg (25.0-35.0); MCHC 35.5 g/dL (31.0-37.0); MCV 91.4 fL (80.0-100.0); Mean Platelet Volume 7.2; Monocytes # (A) 0.2 k/uL (0-1.0); Monocytes % (A) 5 %; Neutrophils # (A) 2.2 k/uL (1.3-7.7); Neutrophils % (A) 52 %; RBC 4.52 m/uL (4.30-5.90); WBC 4.3 k/uL (3.8-10.6); WBC (Perox) 4.42
[2016-11-14 08:28] LABS: Anion Gap 10 mmol/L; Blood Urea Nitrogen 12 mg/dL (9-20); Calcium 9.3 mg/dL (8.4-10.2); Carbon Dioxide 23 mmol/L (22-30); Chloride 105 mmol/L (98-107); Glucose 172 mg/dL (74-99); Non-African American GFR(MDRD) >60 (>60 ml/min/1.73 sqM); Potassium 4.1 mmol/L (3.5-5.1); Sodium 138 mmol/L (137-145)
[2016-11-14] MEDS: LOSARTAN 50 MG TAB PO SCH (10:32)
[2016-11-14 10:34] VITALS: BP 137/79; PULSE 58
[2016-11-14] MEDS ORDERED: VANCOMYCIN 1,750 MG in SODIUM CHLORIDE 0.9% 250 ML IVPB SCH (14:00)
--- NOTE | 2016-11-15 08:53 | DS ---
DATE OF ADMISSION: 11/10/2016 DATE OF DISCHARGE: 11/14/2016 51-year-old admitted with right foot wound and cellulitis after injury from the hardware and Dr. Tavares was recommending IV vancomycin initially although patient prefers to be on oral medication. Patient has significant improvement in cellulitis and patient will be discharged on Bactrim. The wound cultures are only showing gram-positive cocci beyond which it is not rare gram-positive cocci beyond which the culture is not characterized and finalized at this point of time. Dr. Tavares is recommending two Bactrim double strength two twice a day for 14 days. Patient will follow with Dr. Tavares as an outpatient in about a about a week. Patient was seen and examined on the day of discharge. Vitals are stable. PHYSICAL EXAMINATION: GENERAL: The patient is alert and oriented x3, not in any acute distress. Well developed, well nourished. HEENT: Pupils are round and equally reacting to light. EOMI. No scleral icterus. No conjunctival pallor. Normocephalic, atraumatic. No pharyngeal erythema. No thyromegaly. CARDIOVASCULAR: S1 and S2 present. No murmurs, rubs, or gallops. PULMONARY: Chest is clear to auscultation, no wheezing or crackles. ABDOMEN: Soft, nontender, nondistended, normoactive bowel sounds. No palpable organomegaly. MUSCULOSKELETAL: No joint swelling or deformity. EXTREMITIES: The right leg patient has a wound and cellulitis surrounding it significantly improved. There is some redness but there is no localized temperature. NEUROLOGICAL: Gross neurological examination did not reveal any focal deficits. SKIN: No rashes. FINAL DIAGNOSIS(ES): 1. Cellulitis of the right lower extremity after post trauma with a nail and wound in the plantar aspect between the first and second toes. 2. Type 2 diabetes mellitus. 3. Peripheral neuropathy. 4. Gastroesophageal reflux disease. 5. Hypertension. Please refer to my depart summary for further details of discharge medications. Activity as tolerated. Patient will follow with Dr. Cabezas in about 3 to 7 days; Dr. Heron Chiu in one week; Dr. Tavares in one week. Activity as tolerated. Cardiac and diabetic 1800 calorie diet. I spent greater than 35 minutes in total discharge process.
== END 2016-11-14 11:20 | disposition home or self-care (01) | DRG 603 ==
LOC: EC 22:49 → 5MS5E 11-10 00:20
PROVIDERS: ADMIT Hospitalist; ATTEND Hospitalist
DX: L03.115 Cellulitis of right lower limb (principal); E11.42 Type 2 diabetes mellitus with diabetic polyneuropathy; D69.6 Thrombocytopenia, unspecified; E66.9 Obesity, unspecified; I10 Essential (primary) hypertension; K21.9 Gastro-esophageal reflux disease without esophagitis; S91.331A Puncture wound without foreign body, right foot, initial encounter; Z68.31 Body mass index [BMI] 31.0-31.9, adult; Z79.84 Long term (current) use of oral hypoglycemic drugs; Z79.899 Other long term (current) drug therapy; Z87.891 Personal history of nicotine dependence; Z88.0 Allergy status to penicillin; Z88.1 Allergy status to other antibiotic agents; W45.0XXA Nail entering through skin, initial encounter
CPT/HCPCS: 36415; 80048; 80053; 80202; 83036; 85025; 86140; 87040; 87070; 87205; 90471; 90715; 99285

== ENCOUNTER 2017-10-09 17:18 | Emergency (ER) | payer OTHER ==
--- NOTE | 2017-10-09 17:41 | ED ---
General Adult HPI - General Chief complaint: Extremity Problem,Nontraumatic Stated complaint: LEFT ANKLE/FOOT AND LEG SWELLING AND PAIN Time Seen by Provider: 10/09/17 17:41 Source: patient Mode of arrival: ambulatory Limitations: no limitations - History of Present Illness Initial comments: Patient presents with 2 days of redness and swelling of left foot left ankle left lower leg. Patient states she is a diabetic, does not check his sugar regularly. States he was hospitalized for proximally 6 days in the past for IV antibiotics for bad cellulitis after having a nail stuck in his foot. He states his abdomen mild erythema, swelling slowly progressive over the past 2 days. Denies any trauma or inciting injury. Denies any skin wounds, skin breaks, foreign bodies. Denies fevers, chills, nausea, vomiting. States home on a redness goes up to his anterior ge. Denies redness above the knee. Patient states he did experience brief sharp shooting pains although it up his thigh to his groin, but that has resolved. - Related Data Home Medications Medication Instructions Recorded Confirmed Olmesartan [Benicar] 20 mg PO DAILY 02/17/15 10/09/17 metFORMIN HCL [Glucophage] 500 mg PO BID 02/17/15 10/09/17 Terbinafine [LamISIL] 250 mg PO DAILY 10/09/17 10/09/17 Previous Rx's Medication Instructions Recorded Doxycycline [Vibramycin] 100 mg PO Q12HR 5 Days #20 capsule 10/09/17 Sulfamethox-Tmp 800-160Mg [Bactrim 1 tab PO Q12HR 5 Days #10 tab 10/09/17 DS 800-160 mg] Allergies Allergy/AdvReac Type Severity Reaction Status Date / Time levofloxacin [From Levaquin] Allergy Swelling, Verified 10/09/17 18:07 RASH Penicillins Allergy Unknown Verified 10/09/17 18:07 Childhood Review of Systems ROS Statement: Those systems with pertinent positive or pertinent negative responses have been documented in the HPI. ROS Other: All systems not noted in ROS Statement are negative. Constitutional: Denies: fever, chills, weakness Eyes: Denies: vision change ENT: Denies: congestion Respiratory: Denies: cough, dyspnea Cardiovascular: Denies: chest pain, palpitations Endocrine: Denies: fatigue Gastrointestinal: Denies: abdominal pain, nausea, vomiting Genitourinary: Denies: frequency Musculoskeletal: Reports: joint swelling. Denies: back pain, arthralgia, myalgia Skin: Reports: change in color Neurological: Denies: headache, weakness, numbness, confusion Past Medical History Past Medical History: Diabetes Mellitus, GERD/Reflux, Hypertension Additional Past Medical History / Comment(s): neuropathy History of Any Multi-Drug Resistant Organisms: None Reported Past Surgical History: Tonsillectomy Additional Past Surgical History / Comment(s): endoscopy Past Anesthesia/Blood Transfusion Reactions: No Reported Reaction Past Psychological History: No Psychological Hx Reported Smoking Status: Former smoker Past Alcohol Use History: Rare Past Drug Use History: None Reported - Past Family History Mother Family Medical History: Cancer Father Family Medical History: Cancer General Exam - General Exam Comments Initial Comments: Sitting up in bed. No acute chest. Arms behind head. Calm, pleasant, smiling. Not ill appearing. Not appear in pain. Limitations: no limitations General appearance: alert, in no apparent distress Head exam: Present: atraumatic, normocephalic Eye exam: Present: normal appearance, PERRL, EOMI ENT exam: Present: normal exam Neck exam: Present: normal inspection Respiratory exam: Present: normal lung sounds bilaterally. Absent: respiratory distress, wheezes, rales Cardiovascular Exam: Present: regular rate, normal rhythm GI/Abdominal exam: Present: soft. Absent: distended, tenderness, guarding, rebound Extremities exam: Present: full ROM, normal capillary refill, pedal edema, other (Trace pitting edema left foot left ankle. DP pulses +2 out of 4 bilaterally. Cap refill less than 2 seconds in all toes. Skin callous bottom of left foot, no active drainage, fluctuance, surrounding erythema appreciated.) . Absent: tenderness, calf tenderness Neurological exam: Present: alert, oriented X3 Psychiatric exam: Present: normal affect, normal mood Skin exam: Present: warm, dry, intact, erythema, other (Mild macular patchy erythema dorsum left foot, left ge anteriorly only. Warm to the touch.) Course Vital Signs 10/09/17 10/09/17 10/09/17 17:20 18:21 18:59 Temperature 97.7 F Pulse Rate 88 67 59 L Respiratory 20 18 18 Rate Blood Pressure 140/82 151/70 154/70 O2 Sat by Pulse 99 98 99 Oximetry Medical Decision Making - Medical Decision Making Afebrile on arrival. No signs of systemic infection. No DVT on ultrasound White blood cell count within normal range. Patient symptoms likely secondary to mild cellulitis. Patient and agree to outpatient treatment with prescriptions of Bactrim and doxycycline given. Patient agrees to follow-up with his primary care physician on Friday for recheck. Return to ER for new or worsening symptoms including increased erythema, fevers, chills, nausea, vomiting. At this time no sign of abscess or systemic infection. Patient given 1 dose of clindamycin in the ER. - Lab Data Result diagrams: 10/09/17 18:17 10/09/17 18:17 Lab Results 10/09/17 10/09/17 10/09/17 Range/Units 18:17 18:17 18:17 WBC 7.3 (3.8-10.6) k/uL RBC 4.12 L (4.30-5.90) m/uL Hgb 13.4 (13.0-17.5) gm/dL Hct 36.6 L (39.0-53.0) % MCV 88.7 (80.0-100.0) fL MCH 32.6 (25.0-35.0) pg MCHC 36.8 (31.0-37.0) g/dL RDW 12.9 (11.5-15.5) % Plt Count 142 L (150-450) k/uL Neutrophils % 66 % Lymphocytes % 24 % Monocytes % 7 % Eosinophils % 1 % Basophils % 0 % Neutrophils # 4.8 (1.3-7.7) k/uL Lymphocytes # 1.8 (1.0-4.8) k/uL Monocytes # 0.5 (0-1.0) k/uL Eosinophils # 0.1 (0-0.7) k/uL Basophils # 0.0 (0-0.2) k/uL PT 10.0 (9.0-12.0) sec INR 1.0 (<1.2) APTT 22.1 (22.0-30.0) sec Sodium 143 (137-145) mmol/L Potassium 4.0 (3.5-5.1) mmol/L Chloride 104 (98-107) mmol/L Carbon Dioxide 24 (22-30) mmol/L Anion Gap 15 mmol/L BUN 11 (9-20) mg/dL Creatinine 0.90 (0.66-1.25) mg/dL Est GFR (CKD-EPI)AfAm >90 (>60 ml/min/1.73 sqM) Est GFR (CKD-EPI)NonAf >90 (>60 ml/min/1.73 sqM) Glucose 145 H (74-99) mg/dL Calcium 9.2 (8.4-10.2) mg/dL Disposition Clinical Impression: Cellulitis Disposition: HOME SELF-CARE Condition: Good Instructions: Cellulitis (ED) Additional Instructions: Up with your primary care physician in 2 days for recheck of cellulitis. Return to ER immediately if new or worsening symptoms including increased erythema, fevers, chills, nausea, vomiting, increased pain. Prescriptions: Doxycycline [Vibramycin] 100 mg PO Q12HR 5 Days #20 capsule Sulfamethox-Tmp 800-160Mg [Bactrim DS 800-160 mg] 1 tab PO Q12HR 5 Days #10 tab Is patient prescribed a controlled substance at d/c from ED?: No Referrals: Corrine Cabezas MD [Primary Care Provider] - 1-2 days
[2017-10-09] MEDS ORDERED: SODIUM CHLORIDE 0.9% 1,000 ML IV STA (17:58)
[2017-10-09] MEDS ORDERED: CLINDAMYCIN 600 MG in DEXTROSE 5% IN WATER 50 ML IVPB STA ×2 (18:01)
[2017-10-09 18:43] LABS: Basophils % (A) 0 %; Eosinophils # (A) 0.1 k/uL (0-0.7); Eosinophils % (A) 1 %; HCT 36.6 % (39.0-53.0); HGB 13.4 gm/dL (13.0-17.5); Lymphocytes # (A) 1.8 k/uL (1.0-4.8); Lymphocytes % (A) 24 %; MCH 32.6 pg (25.0-35.0); MCHC 36.8 g/dL (31.0-37.0); MCV 88.7 fL (80.0-100.0); Monocytes # (A) 0.5 k/uL (0-1.0); Monocytes % (A) 7 %; Neutrophils # (A) 4.8 k/uL (1.3-7.7); Neutrophils % (A) 66 %; Platelet Count 142 k/uL (150-450); RBC 4.12 m/uL (4.30-5.90); RDW 12.9 % (11.5-15.5); WBC 7.3 k/uL (3.8-10.6)
[2017-10-09 18:45] LABS: Partial Thromboplastin Time 22.1 sec (22.0-30.0)
[2017-10-09 18:48] LABS: Anion Gap 15 mmol/L; Blood Urea Nitrogen 11 mg/dL (9-20); Calcium 9.2 mg/dL (8.4-10.2); Carbon Dioxide 24 mmol/L (22-30); Chloride 104 mmol/L (98-107); Glucose 145 mg/dL (74-99); Sodium 143 mmol/L (137-145)
[2017-10-09 18:54] VITALS: RESP 18
--- NOTE | 2017-10-09 19:06 | US ---
EXAMINATION TYPE: US venous doppler duplex LE LT DATE OF EXAM: 10/09/2017 6:44 PM COMPARISON: NONE CLINICAL HISTORY: Pain. Left ankle pain and swelling. SIDE PERFORMED: Left TECHNIQUE: The lower extremity deep venous system is examined utilizing real time linear array sonog eladio with graded compression, doppler sonography and color-flow sonography. VESSELS IMAGED: External Iliac Vein (EIV) Common Femoral Vein Deep Femoral Vein Greater Saphenous Vein * Femoral Vein Popliteal Vein Small Saphenous Vein * Proximal Calf Veins (* superficial vessels) Left Leg: Negative for DVT Grayscale, color doppler, spectral doppler imaging performed of the deep veins of the left lower extr emity. There is normal flow, compressibility, vascular waveforms. IMPRESSION: No ultrasound evidence for acute DVT in the left lower extremity.
[2017-10-09 20:13] VITALS: BP 131/74; PULSE 64; TEMP 98
== END 2017-10-09 20:13 | disposition home or self-care (01) ==
LOC: EC 17:18
DX: L03.116 Cellulitis of left lower limb (principal); I10 Essential (primary) hypertension; E11.40 Type 2 diabetes mellitus with diabetic neuropathy, unspecified; Z87.891 Personal history of nicotine dependence; Z79.84 Long term (current) use of oral hypoglycemic drugs; Z79.899 Other long term (current) drug therapy; Z88.0 Allergy status to penicillin; Z88.1 Allergy status to other antibiotic agents
CPT/HCPCS: 36415; 80048; 85025; 85610; 85730; 96361; 96365; 99284

== ENCOUNTER 2018-11-19 18:33 | Emergency (ER) | payer BC, OTHER ==
[2018-11-19 18:55] VITALS: BP 154/85; PULSE 82; RESP 18; TEMP 98.4
[2018-11-19] MEDS ORDERED: AMOXIC-POT CLAV 875MG STARTER 2 EACH TABLET PO STA (19:20)
[2018-11-19] MEDS ORDERED: CEFEPIME 1 GM VIAL IM STA (19:20)
--- NOTE | 2018-11-19 19:21 | XR ---
EXAMINATION TYPE: XR foot complete LT DATE OF EXAM: 11/19/2018 COMPARISON: NONE HISTORY: Puncture wound TECHNIQUE: 3 views FINDINGS: There is soft tissue air over the plantar aspect of the forefoot at the first metatarsal he ad. I see no fracture nor dislocation. There is no sign of radiopaque foreign body. There is mild spu rring at the first MP joint. There is a small plantar calcaneal spur. IMPRESSION: Soft tissue air. No fracture seen. No sign of radiopaque foreign body.
[2018-11-19] MEDS ORDERED: CEFEPIME 2 GM in SODIUM CHLORIDE 0.9% 100 ML IVPB STA (19:27)
[2018-11-19] MEDS ORDERED: CEPHALEXIN 500MG STARTER PACK 4 CAP BTL PO STA (19:33)
[2018-11-19] MEDS ORDERED: SULFAMETH-TMP DS STARTER PACK 2 TAB BTL PO STA (19:33)
--- NOTE | 2018-11-19 20:01 | ED ---
Lower Extremity Injury HPI - General Chief Complaint: Extremity Injury, Lower Stated Complaint: stepped on a nail/ h/o neuropathy Time Seen by Provider: 11/19/18 18:48 Source: patient Mode of arrival: ambulatory Limitations: no limitations - History of Present Illness Initial Comments: 53-year-old male patient with past medical history significant for peripheral neuropathy and diabetes mellitus presents to the emergency department today for evaluation of puncture wound to the plantar surface of the left foot. Patient states that he stepped on a nail today through his shoe at work. Patient states he didn't realize right away that the nail was there due to decreased feeling to the lower extremities. Patient has had chronic wound infection the past from a similar injury which required IV antibiotics. Patient denies any other injuries. Patient denies any headache, neck pain, back pain, chest pain, shortness of breath, dizziness, weakness, abdominal pain, nausea, vomiting, or difficulties with bowel movements or urination. - Related Data Home Medications Medication Instructions Recorded Confirmed Olmesartan [Benicar] 20 mg PO DAILY 02/17/15 10/09/17 metFORMIN HCL [Glucophage] 500 mg PO BID 02/17/15 10/09/17 Terbinafine [LamISIL] 250 mg PO DAILY 10/09/17 10/09/17 Previous Rx's Medication Instructions Recorded Doxycycline [Vibramycin] 100 mg PO Q12HR 5 Days #20 capsule 10/09/17 Sulfamethox-Tmp 800-160Mg [Bactrim 1 tab PO Q12HR 5 Days #10 tab 10/09/17 DS 800-160 mg] Cephalexin [Keflex] 500 mg PO Q6H #28 cap 11/19/18 Sulfamethoxazole/Trimethoprim 1 each PO BID #14 tablet 11/19/18 [Bactrim DS 800-160 mg] Allergies Allergy/AdvReac Type Severity Reaction Status Date / Time levofloxacin [From Levaquin] Allergy Swelling, Verified 11/19/18 18:51 RASH Penicillins Allergy Unknown Verified 11/19/18 18:51 Childhood Review of Systems ROS Statement: Those systems with pertinent positive or pertinent negative responses have been documented in the HPI. ROS Other: All systems not noted in ROS Statement are negative. Past Medical History Past Medical History: Diabetes Mellitus, GERD/Reflux, Hypertension Additional Past Medical History / Comment(s): neuropathy History of Any Multi-Drug Resistant Organisms: None Reported Past Surgical History: Tonsillectomy Additional Past Surgical History / Comment(s): endoscopy Past Anesthesia/Blood Transfusion Reactions: No Reported Reaction Past Psychological History: No Psychological Hx Reported Smoking Status: Former smoker Past Alcohol Use History: Rare Past Drug Use History: None Reported - Past Family History Mother Family Medical History: Cancer Father Family Medical History: Cancer General Exam Limitations: no limitations General appearance: alert, in no apparent distress, other (Physical well- developed, well-nourished adult male patient in no acute distress. Vital signs upon presentation are temperature 98.4F, pulse 82, respirations 18, blood pressure 154/85, pulse ox 98% on room air.) Eye exam: Present: normal appearance, PERRL, EOMI. Absent: scleral icterus, conjunctival injection, periorbital swelling ENT exam: Present: normal exam, normal oropharynx, mucous membranes moist Respiratory exam: Present: normal lung sounds bilaterally. Absent: respiratory distress, wheezes, rales, rhonchi, stridor Cardiovascular Exam: Present: regular rate, normal rhythm, normal heart sounds. Absent: systolic murmur, diastolic murmur, rubs, gallop, clicks Extremities exam: Present: full ROM, normal capillary refill, other (Patient has open wound noted to the plantar surface of the ball of the left foot. No active bleeding noted.). Absent: normal inspection, tenderness, pedal edema, joint swelling, calf tenderness Neurological exam: Present: alert, oriented X3, CN II-XII intact Psychiatric exam: Present: normal affect, normal mood Skin exam: Present: warm, dry, intact, normal color. Absent: rash Course Vital Signs 11/19/18 18:52 Temperature 98.4 F Pulse Rate 82 Respiratory 18 Rate Blood Pressure 154/85 O2 Sat by Pulse 98 Oximetry Medical Decision Making - Medical Decision Making 53-year-old male patient presented to the emergency department today for evaluation of puncture wound to the left foot. Patient stepped on a nail at work through his boot. Physical examination did reveal an open wound to the bottom of the left foot, appeared the nail had been an issue for. At time before patient was aware that it was present. Foot was irrigated extensively , Bacitracin ointment applied. X-ray showed no evidence for foreign body. Patient was given an IV dose of cefepime for pseudomonas coverage. He was given prescription for Keflex and Bactrim for polymicrobial coverage. patient is given a prescription for crutches and instructed to remain nonweightbearing for the next 4-7 days. Patient is educated extensively regarding wound care and signs or symptoms of infection. He is instructed to follow-up with his primary care physician for recheck of the wound 1-2 days. Return parameters were discussed in detail. He verbalizes understanding and agrees with this plan. - Radiology Data Radiology results: report reviewed, image reviewed 3 views of the left foot are obtained. Report is reviewed in its entirety. Impression by Dr. Cartwright shows soft tissue air. No fracture seen. No sign of radiopaque foreign body. Disposition Clinical Impression: Puncture wound of skin from metal nail Disposition: HOME SELF-CARE Condition: Good Instructions (If sedation given, give patient instructions): Puncture Wound (ED) Additional Instructions: Remain non-weightbearing to the wound for the next 4-7 days. Complete antibiotic prescriptions in full. Keep wound clean and dry. Do not submerge in water. Cleanse at least twice daily with warm water and antibacterial soap, apply antibiotic ointment afterwards. Follow up with your primary care physician for recheck of the wound in 1-2 days. Return to the emergency department immediately for any new, worsening, or concerning symptoms. Prescriptions: Sulfamethoxazole/Trimethoprim [Bactrim DS 800-160 mg] 1 each PO BID #14 tablet Cephalexin [Keflex] 500 mg PO Q6H #28 cap Is patient prescribed a controlled substance at d/c from ED?: No Referrals: Corrine Cabezas MD [Primary Care Provider] - 1-2 days Time of Disposition: 20:00
== END 2018-11-19 20:25 | disposition home or self-care (01) ==
LOC: EC 18:33
DX: S91.332A Puncture wound without foreign body, left foot, initial encounter (principal); E11.40 Type 2 diabetes mellitus with diabetic neuropathy, unspecified; I10 Essential (primary) hypertension; Z79.899 Other long term (current) drug therapy; Z87.891 Personal history of nicotine dependence; Z88.0 Allergy status to penicillin; Z88.1 Allergy status to other antibiotic agents; W45.0XXA Nail entering through skin, initial encounter
CPT/HCPCS: 73630; 99283; 96365; J0692

== ENCOUNTER → 2019-05-04 | Outpatient (CLI) | payer BC ==
--- NOTE | 2019-05-04 11:54 | NM ---
EXAMINATION TYPE: NM bone 3 phase DATE OF EXAM: 05/04/2019 COMPARISON: Same day outside x-ray. Left foot x-ray November 19, 2018 HISTORY: Charcot joint arthropathy per order.Left foot and ankle pain for 6 months. Triple phase bone scintigraphy was performed following the injection of 23.5 mCi Tc 99m MDP. Immedia te images and 4 hours post injection images acquired. Imaging is performed of the bilateral ankles an d feet FINDINGS: Arterial phase and soft tissue phase images show increased uptake in left ankle and foot. T he right side with more prominent uptake noted mid foot level. Delayed phase images show increased up take midfoot level most prominent near base of second third and fourth metatarsals extending into the proximal one third of the fourth metatarsal, there is likely cuneiform involvement. IMPRESSION: +3 phase radiotracer uptake, differential includes RSD and acute osteomyelitis, other myrna ologies are not excluded. Correlate clinically.
== END | disposition home or self-care (01) ==
LOC: RADNMMAIN 07:16
PROVIDERS: ATTEND Podiatrist Foot & Ankle Surgery
DX: M14.672 Charcot's joint, left ankle and foot (principal)
CPT/HCPCS: 78315

== ENCOUNTER 2019-05-20 11:02 | Day surgery (SDC) | payer BC ==
[2019-05-19 12:01] VITALS: BMI 31.7
[2019-05-20 11:37] VITALS: BP 142/70; PULSE 70; RESP 16; TEMP 98.3
[2019-05-20 11:37] LABS: Glucose,Whole Blood 272 mg/dL (75-99)
[2019-05-20 11:56] LABS: African American GFR (CKD) >90 (>60 ml/min/1.73 sqM); Blood Urea Nitrogen 11 mg/dL (9-20); Non-African American GFR(CKD) >90 (>60 ml/min/1.73 sqM)
[2019-05-20] MEDS ORDERED: CEFEPIME 2 GM in SODIUM CHLORIDE 0.9% 100 ML IVPB ONE (12:00)
[2019-05-20] MEDS ORDERED: LIDOCAINE 1% INJ 10MG/ML (20 ML MDV) SQ ONE (13:50)
--- NOTE | 2019-05-20 14:22 | IR ---
EXAMINATION TYPE: IR cvc insert >=5 years DATE OF EXAM: 05/20/2019 COMPARISON: NONE CLINICAL HISTORY: Infection Needs long-term intravenous access for antibiotics. PROCEDURE: After informed consent, the skin overlying the left basilic vein was localized with ultrasound and no ion to be compressible and patent. An ultrasound image was obtained and submitted on the patient's c harrison. The overlying skin was prepped and draped and Lidocaine was used for local anesthesia. A skin paula was made with a scalpel. Access was gained to the vein under ultrasound guidance with a 21 gau ge needle and a 0.018 inch wire was advanced. Access site was dilated with Peel-Away sheath and cath eter tailored to the appropriate length and advanced such that the distal tip is at the cavoatrial ju nction. Spot image was obtained verifying placement. Catheter was fixed to the skin with suture and a sterile dressing was placed following hemostasis. Catheter was aspirated and flushed with saline. Patient was discharged in stable condition without complication.Maximal barrier technique is utiliz ed. Ultrasound image is documented on the chart. Ultrasound used with sterile technique. Fluoro time and fluoroscopic images submitted to document procedure: 0.1 minutes fluoroscopy time, 32 intraoperative images document the procedure IMPRESSION: STATUS POST ULTRASOUND AND FLUOROSCOPIC GUIDED PICC LINE PLACEMENT, READY FOR USE. THIS PROCEDURE WAS PERFORMED BY THE UNDERSIGNED.
[2019-05-20] MEDS ORDERED: SODIUM CHLORIDE 0.9% 100 ML IV ONE (14:35)
== END 2019-05-20 14:58 | disposition home or self-care (01) ==
LOC: CATHCVL 11:02
PROVIDERS: ATTEND Radiology Diagnostic Radiology
DX: Z45.2 Encounter for adjustment and management of vascular access device (principal); E11.69 Type 2 diabetes mellitus with other specified complication; M86.8X7 Other osteomyelitis, ankle and foot; I10 Essential (primary) hypertension; Z79.84 Long term (current) use of oral hypoglycemic drugs; Z79.899 Other long term (current) drug therapy; Z88.0 Allergy status to penicillin; Z88.1 Allergy status to other antibiotic agents; Z82.49 Family history of ischemic heart disease and other diseases of the circulatory system; Z83.3 Family history of diabetes mellitus; Z80.9 Family history of malignant neoplasm, unspecified; Z82.3 Family history of stroke
CPT/HCPCS: 36573; 82565; 84520; C1751; C1769; J2001

== ENCOUNTER 2019-06-17 07:54 | Day surgery (SDC) | payer BC ==
[2019-06-15 11:28] VITALS: BMI 32.1
[~2019-06-17 07:54] MED LIST: DEXAMETHASONE SOD PHOSPHATE 10 MG/ML 1 ML VIAL IV ONE; HYDROmorphone 0.5 MG/0.5 ML SYRINGE IVP PRN; MIDAZOLAM 2 MG/2 ML VIAL IV PRN; ONDANSETRON 4 MG/2 ML VIAL IVP ONE; Pre Op ABX Message 1 EACH MISC MISCELLANE ONE; SCOPOLAMINE 1.5MG/72HR PATCH TRANSDERM ONE
[2019-06-17 08:28] VITALS: RESP 18; TEMP 98.2
[2019-06-17] MEDS: LACTATED RINGERS 1,000 ML IV SCH ×2 (08:46→09:35)
[2019-06-17 08:49] LABS: Glucose,Whole Blood 178 mg/dL (75-99)
[2019-06-17] MEDS ORDERED: fentaNYL (PF) 50 MCG/ML 2 ML AMP ONE (09:33)
[2019-06-17] MEDS ORDERED: KETAMINE 10 MG/ML 20 ML VIAL ONE (09:33)
[2019-06-17] MEDS ORDERED: MIDAZOLAM 2 MG/2 ML VIAL ONE (09:33)
[2019-06-17] MEDS ORDERED: PROPOFOL 10 MG/ML 20 ML VIAL IV ONE (09:33)
[2019-06-17] MEDS ORDERED: BUPIVACAINE-EPI 0.5%-1:200,000 10 ML VIAL SQ ONE (09:36)
--- NOTE | 2019-06-17 10:11 | P.OP ---
Date of Procedure: 06/17/19 Preoperative Diagnosis: 1. Puncture wound left foot with possible osteomyelitis 2. Type 2 diabetes Postoperative Diagnosis: Same Procedure(s) Performed: Bone biopsy, left middle cuneiform Anesthesia: other (Sedation plus local) Surgeon: Amilcar Olivas Horseshoer #1: Brett Singer IV fluids (ml): 500 Pathology: other (Bone biopsy to pathology and microbiology) Condition: stable Disposition: PACU Indications for Procedure: Patient is pleasant no medical history significant for type 2 diabetes who sustained a puncture wound in his left foot. He did managed by his primary care physician, podiatry, and the wound center. He was referred to my office by Dr. Tavares to obtain a bone biopsy. I met with the patient and his discussed this procedure. We discussed potential risks and complications. We also discussed that all treatment decisions resulting from the bone biopsy will be under the direction of Dr. Tavares. Description of Procedure: I met the patient and his in preoperative holding and marked the correct left leg. We discussed the procedure in detail. All their questions were answered. The patient was then brought back to the operating room. He was positioned on the OR table where sedation was applied. The tourniquet was applied proximal aspect of the left leg but was not used during the case. All bony prominences well-padded. The left leg was then prepped and draped in standard sterile fashion. Prior to starting surgery timeout was performed identifying the correct patient, operative extremity, and procedure. I began by marking out the site of the middle cuneiform the dorsum of the foot with fluoroscopy. A 1 cm incision was made with a scalpel. Dissection was carried down carefully saphenous tissue. A bone biopsy probe was then used and gently malleted in the middle of the middle cuneiform. It was removed and a small core of bone was dispensed on the back table. This was wrapped and sent to microbiology and pathology. Final fluoroscopic imaging was taken verifying site of the bone biopsy. The wound was thoroughly irrigated and closed in layers. The patient was then awoken from his sedation, transferred to a gurney, and brought to recovery and procedure well. Plan: The patient can weight-bear as tolerated in a tall boot. He'll follow-up in 2 weeks for suture removal.
--- NOTE | 2019-06-17 10:29 | FL ---
EXAMINATION TYPE: FL guidance operating room, XR foot limited LT DATE OF EXAM: 06/17/2019 CLINICAL HISTORY: Left foot bone biopsy. Fluoroscopic documentation. TECHNIQUE: Fluoroscopy. COMPARISON: None. FINDINGS: Fluoroscopic guidance was provided during pain relief procedure performed by Dr. Olivas . A total of 7 seconds of fluoroscopic time was utilized during the procedure and two spot images ar e acquired of the left foot. IMPRESSION: As Above.
[2019-06-17 10:35] LABS: Glucose,Whole Blood 190 mg/dL (75-99)
[2019-06-17 10:52] VITALS: BP 103/59; PULSE 56
== END 2019-06-17 11:01 | disposition home or self-care (01) ==
LOC: OR 07:54
PROVIDERS: ATTEND Orthopaedic Surgery
DX: S91.332A Puncture wound without foreign body, left foot, initial encounter (principal); E11.69 Type 2 diabetes mellitus with other specified complication; M86.172 Other acute osteomyelitis, left ankle and foot; M87.875 Other osteonecrosis, left foot; I10 Essential (primary) hypertension; Z88.0 Allergy status to penicillin; Z88.1 Allergy status to other antibiotic agents; Z90.89 Acquired absence of other organs; Z98.890 Other specified postprocedural states; Z83.3 Family history of diabetes mellitus; Z87.891 Personal history of nicotine dependence; Z79.84 Long term (current) use of oral hypoglycemic drugs; Z79.899 Other long term (current) drug therapy; Z79.2 Long term (current) use of antibiotics; X58.XXXA Exposure to other specified factors, initial encounter
CPT/HCPCS: 88307; 88311; 87070; 87205; 87075; 73620; 20240; J2250; J1100; J2405; J0694; J3010; J2704

== ENCOUNTER 2021-06-16 18:01 | Inpatient (IN) | payer BC, OTHER ==
[2021-06-16] MEDS ORDERED: ACETAMINOPHEN TAB 500 MG TAB PO STA (18:15)
[2021-06-16] MEDS ORDERED: SODIUM CHLORIDE 0.9% 3,000 ML IV STA (18:29)
[2021-06-16] MEDS ORDERED: VANCOMYCIN IV PER PHARMACY 1 EACH MISC MISCELLANE PRN (18:32)
[2021-06-16] MEDS ORDERED: CEFEPIME 2 GM in SODIUM CHLORIDE 0.9% 100 ML IVPB STA (18:32)
--- NOTE | 2021-06-16 18:32 | ED ---
General Adult HPI - General Chief complaint: Extremity Problem,Nontraumatic Stated complaint: R foot sore Time Seen by Provider: 06/16/21 18:13 Source: patient Mode of arrival: ambulatory Limitations: no limitations - History of Present Illness Initial comments: Dictation was produced using [employer] dictation software. please excuse any grammatical, word or spelling errors. Chief Complaint: 56-year-old male presents with worsening diabetic foot ulcer to the right foot History of Present Illness: Is a 56-year-old male he has past medical history of diabetes. 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 A foot ulcer to the bottom of his right foot ongoing since January of last year. For the last several days it started to have increased redness. He seen a furniture detailer cultures are ordered. He was sent to [facility] to get an MRI and to be admitted to the hospital. Instead he was sent home with antibiotics. Patient states that it looks as though the wound is getting worse with redness and swelling that started to creep up the leg. Patient denies any fever or constitutional symptoms. Has no respiratory symptoms. No cough diarrhea or headache. Covered. The ROS documented in this emergency department record has been reviewed and confirmed by me. Those systems with pertinent positive or negative responses valero ve been documented in the HPI. All other systems are other negative and/or noncontributory. PHYSICAL EXAM: General Impression: Alert and oriented x3, not in acute distress HEENT: Normocephalic atraumatic, extra-ocular movements intact, pupils equal and reactive to light bilaterally, mucous membranes moist. Cardiovascular: Heart regular rate and rhythm Chest: Able to complete full sentences, no retractions, no tachypnea Abdomen: abdomen soft, non-tender, non-distended, no organomegaly Musculoskeletal: Pulses present and equal in all extremities, no peripheral edema Motor: no focal deficits noted Neurological: CN II-XII grossly intact, no focal motor or sensory deficits noted Skin: Intact with no visualized rashes Psych: Normal affect and mood Right foot: There is a probing diabetic foot ulcer to the plantar surface over the second metatarsal head. Probing tracks down to the bone. There is extreme redness swelling around the forefoot. Intact DP pulse. ED course: 56-year-old male presents emergency Department with diabetic foot ulcer that is worsening. Patient is febrile 12.5 with a heart rate of 127 at the bedside. Concern for sepsis. There is clinical suspicion of osteomyelitis. Patient started on broad-spectrum anabiotic's. Patient is ideal body weight of 97 kg. 30 mL per KG bolus is 3 L. Laboratory evaluation obtained. No leukocytosis. Coag panel is unremarkable. Metabolic panel shows gap acidosis, lactic acidosis 3.1. Coag tests negative. Foot x-ray does not show any obvious signs of osteomyelitis. Patient placed on broad-spectrum antibiotics. He is admitted to [facility] hospitalist group under Dr. Mckeon. Infectious disease will be consulted. - Related Data Home Medications Medication Instructions Recorded Confirmed Olmesartan [Benicar] 20 mg PO QAM 02/17/15 06/17/19 metFORMIN HCL [Glucophage] 500 mg PO BID 02/17/15 06/17/19 Cefepime HCl [Maxipime] 2 gm IV Q12H 06/15/19 06/17/19 Allergies Allergy/AdvReac Type Severity Reaction Status Date / Time levofloxacin [From Levaquin] Allergy Swelling, Verified 06/16/21 18:08 RASH Penicillins Allergy Unknown Verified 06/16/21 18:08 Childhood Review of Systems ROS Statement: Those systems with pertinent positive or pertinent negative responses have been documented in the HPI. ROS Other: All systems not noted in ROS Statement are negative. Past Medical History Past Medical History: Diabetes Mellitus, GERD/Reflux, Hypertension Additional Past Medical History / Comment(s): osteomyelitis and pain left foot, stepped on kristen nail October 2018,hx neuropathy History of Any Multi-Drug Resistant Organisms: None Reported Past Surgical History: Tonsillectomy Additional Past Surgical History / Comment(s): endoscopy Past Anesthesia/Blood Transfusion Reactions: No Reported Reaction Past Psychological History: No Psychological Hx Reported Past Alcohol Use History: Rare Past Drug Use History: None Reported - Past Family History Mother Family Medical History: Cancer Father Family Medical History: Cancer General Exam Limitations: no limitations Course Vital Signs 06/16/21 18:03 Temperature 102.5 F H Pulse Rate 127 H Respiratory 18 Rate Blood Pressure 162/79 O2 Sat by Pulse 98 Oximetry Procedures - Sepsis Sepsis Focused Exam #1 Time Sepsis Criteria Met: 19:37 Sepsis Focused Exam Date: 06/16/21 Sepsis Focused Exam Time: 19:37 Sepsis Focused Exam Complete: Yes Vital Signs & RN Notes Reviewed: Yes Capillary Refill: < 2 Seconds: Fingers, Toes Peripheral Pulses: Normal: Radial (R), Radial (L), Posterior Tibialis (R), Posterior Tibialis (L), Dorsalis Pedis (R), Dorsalis Pedis (L) Skin Color: Normal for Patient Respiratory Exam: normal lung sounds Cardiovascular Exam: regular rate Medical Decision Making - Lab Data Result diagrams: 06/16/21 18:46 06/16/21 18:46 Lab Results 06/16/21 06/16/21 06/16/21 Range/Units 18:46 18:46 18:46 WBC 7.9 (3.8-10.6) k/uL RBC 4.35 (4.30-5.90) m/uL Hgb 13.7 (13.0-17.5) gm/dL Hct 40.2 (39.0-53.0) % MCV 92.5 (80.0-100.0) fL MCH 31.5 (25.0-35.0) pg MCHC 34.0 (31.0-37.0) g/dL RDW 12.7 (11.5-15.5) % Plt Count 195 (150-450) k/uL MPV 7.6 Neutrophils % 83 % Lymphocytes % 10 % Monocytes % 5 % Eosinophils % 0 % Basophils % 0 % Neutrophils # 6.5 (1.3-7.7) k/uL Lymphocytes # 0.8 L (1.0-4.8) k/uL Monocytes # 0.4 (0-1.0) k/uL Eosinophils # 0.0 (0-0.7) k/uL Basophils # 0.0 (0-0.2) k/uL PT 10.7 (9.0-12.0) sec INR 1.0 (<1.2) APTT 21.6 L (22.0-30.0) sec Sodium 132 L (137-145) mmol/L Potassium 4.8 (3.5-5.1) mmol/L Chloride 100 (98-107) mmol/L Carbon Dioxide 19 L (22-30) mmol/L Anion Gap 13 mmol/L BUN 14 (9-20) mg/dL Creatinine 0.86 (0.66-1.25) mg/dL Est GFR (CKD-EPI)AfAm >90 (>60 ml/min/1.73 sqM) Est GFR (CKD-EPI)NonAf >90 (>60 ml/min/1.73 sqM) Glucose 274 H (74-99) mg/dL Plasma Lactic Acid Andrey (0.7-2.0) mmol/L Calcium 9.1 (8.4-10.2) mg/dL Magnesium 1.4 L (1.6-2.3) mg/dL Total Bilirubin 1.0 (0.2-1.3) mg/dL AST 30 (17-59) U/L ALT 29 (4-49) U/L Alkaline Phosphatase 78 (38-126) U/L Total Protein 7.3 (6.3-8.2) g/dL Albumin 4.1 (3.5-5.0) g/dL Coronavirus (PCR) (Not Detectd) 06/16/21 06/16/21 Range/Units 18:46 19:07 WBC (3.8-10.6) k/uL RBC (4.30-5.90) m/uL Hgb (13.0-17.5) gm/dL Hct (39.0-53.0) % MCV (80.0-100.0) fL MCH (25.0-35.0) pg MCHC (31.0-37.0) g/dL RDW (11.5-15.5) % Plt Count (150-450) k/uL MPV Neutrophils % % Lymphocytes % % Monocytes % % Eosinophils % % Basophils % % Neutrophils # (1.3-7.7) k/uL Lymphocytes # (1.0-4.8) k/uL Monocytes # (0-1.0) k/uL Eosinophils # (0-0.7) k/uL Basophils # (0-0.2) k/uL PT (9.0-12.0) sec INR (<1.2) APTT (22.0-30.0) sec Sodium (137-145) mmol/L Potassium (3.5-5.1) mmol/L Chloride (98-107) mmol/L Carbon Dioxide (22-30) mmol/L Anion Gap mmol/L BUN (9-20) mg/dL Creatinine (0.66-1.25) mg/dL Est GFR (CKD-EPI)AfAm (>60 ml/min/1.73 sqM) Est GFR (CKD-EPI)NonAf (>60 ml/min/1.73 sqM) Glucose (74-99) mg/dL Plasma Lactic Acid Andrey 3.1 H* (0.7-2.0) mmol/L Calcium (8.4-10.2) mg/dL Magnesium (1.6-2.3) mg/dL Total Bilirubin (0.2-1.3) mg/dL AST (17-59) U/L ALT (4-49) U/L Alkaline Phosphatase (38-126) U/L Total Protein (6.3-8.2) g/dL Albumin (3.5-5.0) g/dL Coronavirus (PCR) Not Detected (Not Detectd) Disposition Clinical Impression: Cellulitis Disposition: ADMITTED IP TO THIS HOSP Condition: Critical Referrals: Corrine Cabezas MD [Primary Care Provider] - 1-2 days
[2021-06-16] MEDS ORDERED: VANCOMYCIN 2,000 MG in SODIUM CHLORIDE 0.9% 500 ML 500 ML IVPB STA (18:37)
[2021-06-16 19:12] LABS: ALT 29 U/L (4-49); AST 30 U/L (17-59); African American GFR (CKD) >90 (>60 ml/min/1.73 sqM); Albumin 4.1 g/dL (3.5-5.0); Alkaline Phosphatase 78 U/L (38-126); Anion Gap 13 mmol/L; Blood Urea Nitrogen 14 mg/dL (9-20); Calcium 9.1 mg/dL (8.4-10.2); Carbon Dioxide 19 mmol/L (22-30); Chloride 100 mmol/L (98-107); Glucose 274 mg/dL (74-99); Magnesium 1.4 mg/dL (1.6-2.3); Non-African American GFR(CKD) >90 (>60 ml/min/1.73 sqM); Potassium 4.8 mmol/L (3.5-5.1); Sodium 132 mmol/L (137-145); Total Protein 7.3 g/dL (6.3-8.2)
[2021-06-16 19:19] LABS: Basophils % (A) 0 %; Eosinophils % (A) 0 %; HCT 40.2 % (39.0-53.0); HGB 13.7 gm/dL (13.0-17.5); Lymphocytes # (A) 0.8 k/uL (1.0-4.8); Lymphocytes % (A) 10 %; MCH 31.5 pg (25.0-35.0); MCV 92.5 fL (80.0-100.0); Mean Platelet Volume 7.6; Monocytes # (A) 0.4 k/uL (0-1.0); Monocytes % (A) 5 %; Neutrophils # (A) 6.5 k/uL (1.3-7.7); Neutrophils % (A) 83 %; Platelet Count 195 k/uL (150-450); RBC 4.35 m/uL (4.30-5.90); RDW 12.7 % (11.5-15.5); WBC 7.9 k/uL (3.8-10.6)
[2021-06-16 19:30] LABS: Prothrombin Time 10.7 sec (9.0-12.0)
[2021-06-16 19:32] LABS: Partial Thromboplastin Time 21.6 sec (22.0-30.0)
--- NOTE | 2021-06-16 19:33 | XR ---
EXAMINATION TYPE: XR foot complete RT DATE OF EXAM: 06/16/2021 7:06 PM INDICATION: Patient age:Male; 56 years old; Reason for study: osteomyelitis; COMPARISON: Radiograph 11/09/2016 TECHNIQUE: The right foot was examined in the AP, oblique, and lateral projections. FINDINGS: No evidence of osseous erosion. Accessory ossicle is noted in the medial aspect of the foot similar to 2017. No evidence of any acute osseous pathology. No evidence of soft tissue swelling. Joints are preserve d. IMPRESSION: No evidence of acute fracture or findings to suggest osteomyelitis.
[2021-06-16] MEDS ORDERED: MAGNESIUM OXIDE 400 MG TAB PO STA (19:38)
[2021-06-16] MEDS ORDERED: ONDANSETRON 4 MG/2 ML VIAL IVP PRN (19:46)
[2021-06-16] MEDS ORDERED: NALOXONE 0.4 MG/ML 1 ML VIAL IV PRN (19:46)
[2021-06-16] MEDS: SODIUM CHLORIDE 0.9% 1,000 ML IV SCH (21:17)
[2021-06-16] MEDS: SODIUM CHLORIDE 0.9% 1,000 ML IV STA (21:35)
[2021-06-17] MEDS: SODIUM CHLORIDE 0.9% 1,000 ML IV STA (01:04)
[2021-06-17 01:27] LABS: Appearance,Urine Clear (Clear); Bilirubin,Urine Negative (Negative); Blood,Urine Negative (Negative); Color,Urine Light Yellow; Glucose,Urine (UA) Trace (Negative); Ketones,Urine Trace (Negative); Leukocyte Esterase,Urine Negative (Negative); Nitrite,Urine Negative (Negative); PH, Urine 5.5 (5.0-8.0); Protein,Urine Negative (Negative); Specific Gravity,Urine 1.008 (1.001-1.035); Urobilinogen,Urine <2.0 mg/dL (<2.0)
[2021-06-17] MEDS: VANCOMYCIN 2,000 MG in SODIUM CHLORIDE 0.9% 500 ML 500 ML IVPB SCH ×3 (05:37→21:14)
[2021-06-17] MEDS: SODIUM CHLORIDE 0.9% 1,000 ML IV SCH ×3 (05:37→21:13)
[2021-06-17 06:57] LABS: Glucose,Whole Blood 229 mg/dL (75-99)
[2021-06-17] MEDS ORDERED: FAMOTIDINE 20 MG/2 ML VIAL IV SCH (09:00)
[2021-06-17] MEDS: HEPARIN SODIUM,PORCINE/PF 5,000 UNIT/0.5 ML SYRINGE SQ SCH ×2 (09:27→21:14)
[2021-06-17] MEDS: ASCORBIC ACID 500 MG TAB PO SCH (09:27)
[2021-06-17] MEDS: ZINC SULFATE 220 MG CAP PO SCH (09:27)
[2021-06-17] MEDS: CHOLECALCIFEROL 25 MCG (1000 IU) TABLET PO SCH (09:27)
[2021-06-17] MEDS: PIOGLITAZONE 15 MG TAB PO SCH (09:28)
[2021-06-17] MEDS: INSULIN ASPART (NovoLOG) 100 UNIT/ML VIAL SQ SCH ×4 (09:39→21:13)
[2021-06-17 11:24] LABS: African American GFR (CKD) >90 (>60 ml/min/1.73 sqM); Anion Gap 11 mmol/L; Blood Urea Nitrogen 14 mg/dL (9-20); Calcium 9.2 mg/dL (8.4-10.2); Carbon Dioxide 20 mmol/L (22-30); Chloride 101 mmol/L (98-107); Glucose 273 mg/dL (74-99); Non-African American GFR(CKD) >90 (>60 ml/min/1.73 sqM); Potassium 4.8 mmol/L (3.5-5.1); Sodium 132 mmol/L (137-145)
[2021-06-17 11:47] LABS: Glucose,Whole Blood 250 mg/dL (75-99)
[2021-06-17 12:09] LABS: Basophils % (A) 0 %; Eosinophils # (A) 0.1 k/uL (0-0.7); Eosinophils % (A) 2 %; HCT 34.4 % (39.0-53.0); HGB 11.6 gm/dL (13.0-17.5); Lymphocytes # (A) 0.8 k/uL (1.0-4.8); Lymphocytes % (A) 19 %; MCH 31.8 pg (25.0-35.0); MCHC 33.7 g/dL (31.0-37.0); MCV 94.2 fL (80.0-100.0); Mean Platelet Volume 7.6; Monocytes # (A) 0.3 k/uL (0-1.0); Monocytes % (A) 7 %; Neutrophils # (A) 2.8 k/uL (1.3-7.7); Neutrophils % (A) 69 %; Platelet Count 157 k/uL (150-450); RBC 3.65 m/uL (4.30-5.90); RDW 12.8 % (11.5-15.5)
[2021-06-17 12:23] LABS: African American GFR (CKD) >90 (>60 ml/min/1.73 sqM); Anion Gap 5 mmol/L; Blood Urea Nitrogen 9 mg/dL (9-20); Carbon Dioxide 22 mmol/L (22-30); Chloride 107 mmol/L (98-107); Glucose 240 mg/dL (74-99); Non-African American GFR(CKD) >90 (>60 ml/min/1.73 sqM); Potassium 4.1 mmol/L (3.5-5.1); Sodium 134 mmol/L (137-145)
[2021-06-17] MEDS: LOSARTAN 50 MG TAB PO SCH (13:00)
--- NOTE | 2021-06-17 14:46 | HP ---
HISTORY AND PHYSICAL DATE OF SERVICE: 06/17/2021. CHIEF COMPLAINTS: Right foot ulcer. HISTORY OF PRESENT ILLNESS: This 56-year-old gentleman with a past medical history of diabetes, GERD, hypertension, history of osteomyelitis of the left foot, being followed by Dr. Cabezas in the outpatient setting, apparently working some hard type of shoes and subsequently noted ulceration of the plantar aspect and the patient was taking treatment for the last several months. Because of the lack of improvement and involvement of the dorsum of the foot, the patient came to [facility] and was admitted to the hospital for further evaluation and treatment. There is no history of fever, rigors or chills. No history of headache, loss conscious or seizures. PAST MEDICAL HISTORY: History of diabetes, GERD, hypertension, history of osteomyelitis, tonsillectomy, endoscopy. MEDICATIONS: Home medications are: Zinc, Bactrim DS, pioglitazone, cholecalciferol, Vitamin C, metformin, and Benicar. Doses reviewed. ALLERGIES: LEVAQUIN AND PENICILLIN. FAMILY HISTORY: History of breast cancer in the family. SOCIAL HISTORY: Previous history of smoking. No history of current smoking. REVIEW OF SYSTEMS: ENT: No diminished vision. No diminished hearing. CARDIOVASCULAR system: No angina or palpitations. RESPIRATORY: As mentioned earlier. GI: As mentioned earlier. : No dysuria. NERVOUS SYSTEM: No numbness or weakness. ALLERGY/IMMUNOLOGY: No asthma or hayfever. MUSCULOSKELETAL: As mentioned earlier. HEMATOLOGY/ONCOLOGY: As mentioned earlier. ENDOCRINE: As mentioned earlier. CONSTITUTIONAL: As mentioned earlier. DERMATOLOGY: Negative. RHEUMATOLOGY: Negative. PSYCHIATRY as mentioned earlier. PHYSICAL EXAMINATION: Patient is alert and oriented times three. Pulse 89, blood pressure 139/75, respirations 16, temperature 98.9, pulse ox 97% on room air. HEENT: Conjunctivae normal. Oral mucosa moist. NECK: No JVD. No carotid bruit. No lymph node enlargement. CARDIOVASCULAR systems: S1, S2. RESPIRATION: Breath sounds diminished in the bases. A few scattered rhonchi and crackles. ABDOMEN: Soft, nontender. LEGS: Right foot ulcer, cellulitis and plantar ulcers also present. NERVOUS SYSTEM: Higher systems as mentioned. Moves all four limbs. No focal motor or sensory deficits. LYMPHATICS: No lymph nodes palpable in the neck, axillae or groin. SKIN: No ulcer, no rashes and no bleeding. JOINTS: No active deforming arthropathy. LAB STUDIES: WBC 11.7, hemoglobin is 11.2, sodium 134, and glucose 240. ASSESSMENT: 1. Acute diabetic foot ulcer with ulcer and cellulitis, rule out osteomyelitis. 2. Hyponatremia. 3. Anemia. 4. Diabetes mellitus, type 2. 5. Gastroesophageal reflux disease. 6. Hypertension. 7. Osteomyelitis of the left foot. 8. Tonsillectomy. 9. History of nicotine dependence. 10.Obesity with body mass of 32.9. 11.FULL CODE. RECOMMENDATIONS AND DISCUSSION: This 56 year old gentleman who presented with multiple medical issues, we will monitor the patient closely. Obtain cultures. Otherwise empiric antibiotics. Infectious disease evaluation. Bone scan. Guarded prognosis because of multiple complex medical issues. Further recommendations to follow. A copy of this dictation being forwarded to Dr. Cabezas who is the primary physician. Foot x-ray was also done which showed no acute evidence of fracture. Guarded prognosis. Further recommendations to follow. MMODL / IJN: [id number] /
[2021-06-17 17:10] LABS: Glucose,Whole Blood 227 mg/dL (75-99)
[2021-06-17 20:46] LABS: Glucose,Whole Blood 242 mg/dL (75-99)
[2021-06-17] MEDS: metFORMIN 500 MG TAB PO SCH (21:14)
[2021-06-17] MEDS: FAMOTIDINE 20 MG TAB PO SCH (21:14)
--- NOTE | 2021-06-17 22:40 | P.CONS ---
History of Present Illness - Reason for Consult Consult date: 06/17/21 right foot infection Requesting physician: Gia Kent - Chief Complaint right foot swelling and redness worsening x days - History of Present Illness History of present illness : Patient is 56-year-old male with underlying diabetes mellitus in this patient who did have a right diabetic foot infection for the patient has been following with his credentialing specialist patient is presenting to the ER for evaluation of worsening swelling and redness to the right foot area that again has been getting worse for the last few days patient to have underlying diabetic neuropathy hands denies significant pain however has been complaining of some pressure and dull aching sensation to the right foot apparently the patient was recently evaluated at [facility] with the patient did have some cultures subsequent discharged home patient presented to the hospital have fever to 102 F, the patient did have a normal white count and some lymphopenia BUN and creatinine has been normal limits of the normal urine is negative COVID testing is negative patient did have a positive blood culture with gram-positive cocci that has prompted this infectious disease consultation patient did have x-rays of the right foot no evidence of any acute fracture or finding to suggest osteomyelitis patient has been started on vancomycin infectious disease was consulted for further management of antibiotic therapy Review of system: CONSTITUTIONAL: Positive for weakness along with the fever. EYES: No complaint. ENT: No complaint. RESPIRATORY: No complaint. CARDIOVASCULAR: No complaint. GENITOURINARY: No complaint. GASTROINTESTINAL: No complaint. MUSCULOSKELETAL: As per history of present illness. INTEGUMENTARY: As per history of present illness. PSYCHOLOGIC: No complaint. ENDOCRINE: No complaint. NEUROLOGIC: No complaint. Past medical history : Reviewed, documented below Past surgical history : Reviewed, documented below Social history: Reviewed, documented below Medications: Reviewed, as documented below EXAMINATION: Vital sigans= Reviewed and documented below GENERAL DESCRIPTION: Middle-aged male lying in bed, no distress. No tachypnea or accessory muscle of respiration use. HEENT: Shows Pallor , no scleral icterus. Oral mucous membrane is dry. NECK: Trachea central, no thyromegaly. LUNGS: Unlabored breathing. Clear to auscultation anteriorly. No wheeze or crackle. HEART: S1, S2, regular rate and rhythm. ABDOMEN: Soft, no tenderness , guarding or rigidity EXTREMITIES: Swelling and redness of his right foot with infected callus on the plantar aspect of the right foot minimal drainage. SKIN: No rash, no masses palpable. NEUROLOGICAL: The patient is awake, alert, oriented x3, mood and affect normal. LABS AND RADIOLOGY: Reviewed results see below Assessment : Patient presented to hospital with extensive right diabetic foot infection with an infected callus on the plantar aspect of the right foot and did have significant swelling redness of the right foot now with evidence of bacteremia concern is likely for a deep infection Plan: 1-we will obtain a CT of the right foot to rule out abscess that may need to be drained 2-discontinue vancomycin 3-cefazolin 2 g every 8 hours 4-check inflammatory markers We will follow on clinical condition and cultures to further adjust medication if needed Thank you for this consultation we will follow the patient along with you Past Medical History Past Medical History: Diabetes Mellitus, GERD/Reflux, Hypertension Additional Past Medical History / Comment(s): osteomyelitis and pain left foot, stepped on kristen nail October 2018,hx neuropathy History of Any Multi-Drug Resistant Organisms: None Reported Past Surgical History: Tonsillectomy Additional Past Surgical History / Comment(s): endoscopy Past Anesthesia/Blood Transfusion Reactions: No Reported Reaction Past Psychological History: No Psychological Hx Reported Smoking Status: Former smoker Past Alcohol Use History: Rare Additional Past Alcohol Use History / Comment(s): STARTED SMOKING AT AROUND 21 SMOKED LESS 1/2PPD QUIT 1989 Past Drug Use History: None Reported - Past Family History Mother Family Medical History: Cancer Additional Family Medical History / Comment(s): breast cancer Father Family Medical History: Cancer Additional Family Medical History / Comment(s): lung cancer Sister(s) Family Medical History: Cancer Additional Family Medical History / Comment(s): lung cancer Medications and Allergies Home Medications Medication Instructions Recorded Confirmed Type Olmesartan [Benicar] 20 mg PO DAILY 02/17/15 06/16/21 History metFORMIN HCL [Glucophage] 1,000 mg PO BID 02/17/15 06/16/21 History Ascorbic Acid [Vitamin C] 500 mg PO DAILY 06/16/21 06/16/21 History Cholecalciferol [Vitamin D3 (25 25 mcg PO DAILY 06/16/21 06/16/21 History Mcg = 1000 Iu)] Pioglitazone HCl 15 mg PO DAILY 06/16/21 06/16/21 History Sulfamethox-Tmp 800-160Mg [Bactrim 1 tab PO BID 06/16/21 06/16/21 History DS 800-160 mg] Zinc 50 mg PO DAILY 06/16/21 06/16/21 History Allergies Allergy/AdvReac Type Severity Reaction Status Date / Time levofloxacin [From Levaquin] Allergy Swelling, Verified 06/16/21 20:17 RASH Penicillins Allergy Unknown Verified 06/16/21 20:17 Childhood Physical Exam Vitals: Vital Signs Temp Pulse Pulse Resp BP BP Pulse Ox 06/17/21 11:48 97.7 F 88 20 148/83 98 06/17/21 04:15 98.9 F 89 16 139/75 97 06/17/21 02:37 17 06/16/21 21:57 98.4 F 103 H 16 152/83 95 06/16/21 21:29 99.1 F 103 H 15 153/81 95 06/16/21 18:03 102.5 F H 127 H 18 162/79 98 Intake and Output 06/16/21 06/17/21 06/17/21 22:59 06:59 14:59 Intake Total 1779 Balance 1779 Intake: Intake, IV Titration 1779 Amount Sodium Chloride 0.9% 1, 780 000 ml @ 130 mls/hr IV . Q7H42M MOOSE Rx#:[id number] Sodium Chloride 0.9% 3, 999 000 ml @ 999 mls/hr IV . Q3H1M STA Rx#:[id number] Other: Voiding Method Toilet Toilet # Voids 3 Weight 129.274 kg 129.274 kg Results CBC & Chem 7: 06/17/21 11:52 06/17/21 11:52 Labs: Abnormal Lab Results - Last 24 Hours (Table) 06/16/21 06/16/21 06/16/21 Range/Units 18:46 18:46 18:46 RBC (4.30-5.90) m/uL Hgb (13.0-17.5) gm/dL Hct (39.0-53.0) % Lymphocytes # 0.8 L (1.0-4.8) k/uL APTT 21.6 L (22.0-30.0) sec Sodium 132 L (137-145) mmol/L Carbon Dioxide 19 L (22-30) mmol/L Glucose 274 H (74-99) mg/dL POC Glucose (mg/dL) (75-99) mg/dL Plasma Lactic Acid Andrey (0.7-2.0) mmol/L Calcium (8.4-10.2) mg/dL Magnesium 1.4 L (1.6-2.3) mg/dL Urine Glucose (UA) (Negative) Urine Ketones (Negative) 06/16/21 06/16/21 06/16/21 Range/Units 18:46 18:46 23:17 RBC (4.30-5.90) m/uL Hgb (13.0-17.5) gm/dL Hct (39.0-53.0) % Lymphocytes # (1.0-4.8) k/uL APTT (22.0-30.0) sec Sodium 132 L (137-145) mmol/L Carbon Dioxide 20 L (22-30) mmol/L Glucose 273 H (74-99) mg/dL POC Glucose (mg/dL) (75-99) mg/dL Plasma Lactic Acid Andrey 3.1 H* 2.4 H* (0.7-2.0) mmol/L Calcium (8.4-10.2) mg/dL Magnesium (1.6-2.3) mg/dL Urine Glucose (UA) (Negative) Urine Ketones (Negative) 06/17/21 06/17/21 06/17/21 Range/Units 01:11 06:55 11:30 RBC (4.30-5.90) m/uL Hgb (13.0-17.5) gm/dL Hct (39.0-53.0) % Lymphocytes # (1.0-4.8) k/uL APTT (22.0-30.0) sec Sodium (137-145) mmol/L Carbon Dioxide (22-30) mmol/L Glucose (74-99) mg/dL POC Glucose (mg/dL) 229 H 250 H (75-99) mg/dL Plasma Lactic Acid Andrey (0.7-2.0) mmol/L Calcium (8.4-10.2) mg/dL Magnesium (1.6-2.3) mg/dL Urine Glucose (UA) Trace H (Negative) Urine Ketones Trace H (Negative) 06/17/21 06/17/21 Range/Units 11:52 11:52 RBC 3.65 L (4.30-5.90) m/uL Hgb 11.6 L (13.0-17.5) gm/dL Hct 34.4 L (39.0-53.0) % Lymphocytes # 0.8 L (1.0-4.8) k/uL APTT (22.0-30.0) sec Sodium 134 L (137-145) mmol/L Carbon Dioxide (22-30) mmol/L Glucose 240 H (74-99) mg/dL POC Glucose (mg/dL) (75-99) mg/dL Plasma Lactic Acid Andrey (0.7-2.0) mmol/L Calcium 8.0 L (8.4-10.2) mg/dL Magnesium (1.6-2.3) mg/dL Urine Glucose (UA) (Negative) Urine Ketones (Negative) Microbiology - Last 24 Hours (Table) 06/16/21 18:59 Blood Culture - Final Blood
[2021-06-18] MEDS: SODIUM CHLORIDE 0.9% 1,000 ML IV SCH ×3 (04:58→21:32)
[2021-06-18 06:55] LABS: Basophils % (A) 0 %; Eosinophils # (A) 0.1 k/uL (0-0.7); Eosinophils % (A) 3 %; HCT 34.9 % (39.0-53.0); HGB 11.5 gm/dL (13.0-17.5); Lymphocytes # (A) 1.1 k/uL (1.0-4.8); Lymphocytes % (A) 24 %; MCH 30.7 pg (25.0-35.0); MCHC 33.1 g/dL (31.0-37.0); Mean Platelet Volume 7.6; Monocytes # (A) 0.3 k/uL (0-1.0); Monocytes % (A) 8 %; Neutrophils # (A) 2.8 k/uL (1.3-7.7); Neutrophils % (A) 63 %; Platelet Count 153 k/uL (150-450); RBC 3.75 m/uL (4.30-5.90); RDW 12.1 % (11.5-15.5); WBC 4.4 k/uL (3.8-10.6)
[2021-06-18 08:19] LABS: Glucose,Whole Blood 198 mg/dL (75-99)
[2021-06-18] MEDS: HEPARIN SODIUM,PORCINE/PF 5,000 UNIT/0.5 ML SYRINGE SQ SCH ×2 (08:26→21:31)
[2021-06-18] MEDS: LOSARTAN 50 MG TAB PO SCH (08:26)
[2021-06-18] MEDS: ZINC SULFATE 220 MG CAP PO SCH (08:26)
[2021-06-18] MEDS: FAMOTIDINE 20 MG TAB PO SCH ×2 (08:26→21:31)
[2021-06-18] MEDS: INSULIN ASPART (NovoLOG) 100 UNIT/ML VIAL SQ SCH ×4 (08:26→21:31)
[2021-06-18] MEDS: CHOLECALCIFEROL 25 MCG (1000 IU) TABLET PO SCH (08:26)
[2021-06-18] MEDS: metFORMIN 500 MG TAB PO SCH ×2 (08:27→21:31)
[2021-06-18] MEDS: ASCORBIC ACID 500 MG TAB PO SCH (08:27)
[2021-06-18] MEDS: PIOGLITAZONE 15 MG TAB PO SCH (08:27)
[2021-06-18 08:33] LABS: Erythrocyte Sedimentation Rate 72 mm/hr (0-15)
[2021-06-18 09:33] LABS: African American GFR (CKD) 117.4 (60.0-200.0); Anion Gap 12.4 mmol/L (10.00-18.00); BUN/Creat Ratio 7.38 Ratio (12.00-20.00); Blood Urea Nitrogen 5.9 mg/dL (9.0-27.0); C Reactive Protein 8.9 mg/dL (0.00-0.80); Calcium 8.3 mg/dL (8.7-10.3); Carbon Dioxide 20.6 mmol/L (20.0-27.5); Non-African American GFR(CKD) 101.3 (60.0-200.0); Potassium 4.1 mmol/L (3.5-5.5)
[2021-06-18] MEDS ORDERED: VANCOMYCIN TROUGH DUE 1 EACH MISC MISCELLANE ONE (12:00)
[2021-06-18 12:02] LABS: African American GFR (CKD) >90 (>60 ml/min/1.73 sqM); Anion Gap 7 mmol/L; Blood Urea Nitrogen 7 mg/dL (9-20); Calcium 8.4 mg/dL (8.4-10.2); Carbon Dioxide 21 mmol/L (22-30); Chloride 107 mmol/L (98-107); Glucose 238 mg/dL (74-99); Non-African American GFR(CKD) >90 (>60 ml/min/1.73 sqM); Potassium 4.1 mmol/L (3.5-5.1); Sodium 135 mmol/L (137-145)
[2021-06-18 12:11] LABS: Glucose,Whole Blood 218 mg/dL (75-99)
--- NOTE | 2021-06-18 13:52 | CT ---
EXAMINATION TYPE: CT foot RT w con DATE OF EXAM: 06/18/2021 COMPARISON: Right foot x-ray 2 days ago. HISTORY: ABSCESS RT FOOT CT DLP: 276 mGycm Automated exposure control for dose reduction was used. CONTRAST: Performed with IV Contrast, patient injected with 100 mL of Isovue 300. FINDINGS: There is moderate 2 severe ill-defined fluid and mild to moderate soft tissue swelling greatest in th e forefoot level. There is flexion of the toes identified. Findings greatest along plantar surface an d laterally. No well-formed fluid collection or drainable abscess identified. No enhancing masses are seen. No suspicious bony destruction. Hallux valgus positioning first metatarsophalangeal joint. No acute d isplaced fracture noted. IMPRESSION: As above.
--- NOTE | 2021-06-18 14:02 | NM ---
EXAMINATION TYPE: NM bone 3 phase DATE OF EXAM: 06/18/2021 COMPARISON: X-ray 06/16/2021, CT 06/18/2021 HISTORY: Right foot osteomyelitis Delayed whole-body scanning was performed following the injection of 24.5 mCi Tc 99m MDP. Images wer e acquired 5.5 hours post injection. Blood flow and blood pool imaging was obtained. FINDINGS: Blood flow: There is increased radiotracer accumulation to the distal right foot compared to the left . Blood pool: Increased radiotracer accumulation in the region of the distal right foot compared to the left. Bilateral knees appear symmetrical. Static images: There is increased radiotracer accumulation within the left ankle which may be degener ative in nature. There is focal radiotracer accumulation within the third digit. This area could correlate with the bl ood pool and blood flow imaging uptake. IMPRESSION: 1. Findings suggestive for acute osteomyelitis within the third digit right foot with increased uptak e on all 3 phases of bone scan.
[2021-06-18 17:25] LABS: Glucose,Whole Blood 224 mg/dL (75-99)
--- NOTE | 2021-06-18 17:32 | PN ---
PROGRESS NOTE DATE OF SERVICE: 06/18/2021 This 56-year-old gentleman admitted with right foot ulcer also had a bone scan and foot CT scan. The bone scan shows acute osteomyelitis in the third digit on the right foot with increased uptake on all 3 phases of the bases and the CT scan of the foot shows no suspicious bony destruction. No chest pain. No palpitations. No fever. PHYSICAL EXAMINATION: Alert and oriented x3. Pulse 74, blood pressure 130/77, respiration 20, temperature 97.8, pulse ox 98% on room air. HEENT: Conjunctivae normal. Neck: No JVD. Cardiovascular: S1, S2 muffled. Respiratory System: Breath sounds diminished at the bases. A few scattered rhonchi. Abdomen: Soft. Legs: Right leg abscess and cellulitis present. LABS: WBC 4.3, hemoglobin 11.7, sodium 135, glucose 218. Cultures are showing Staph aureus. ASSESSMENT: 1. Acute diabetic foot ulcer with osteomyelitis of the right foot with Staph aureus. Final ID pending. 2. Hyponatremia. 3. Anemia. 4. Diabetes mellitus, type 2. 5. Gastroesophageal reflux disease. 6. Hypertension. 7. History of osteomyelitis of the left foot. 8. Tonsillectomy. 9. History of nicotine dependence. 10.Obesity with body mass of 32.9. 11.FULL CODE. RECOMMENDATIONS AND DISCUSSION: This 56 -year-old gentleman who presented with multiple complex medical issues, we will monitor the patient closely. We will await the final ID of the organism. We will closely follow with infectious Disease. The patient most likely will require PICC line and long-term antibiotics. Continue to monitor. Outpatient followup with primary physician, Dr. Cabezas is also suggested. We will continue to monitor. MMODL / IJN: [id number] /
[2021-06-18 20:05] LABS: Glucose,Whole Blood 243 mg/dL (75-99)
[2021-06-19] MEDS: SODIUM CHLORIDE 0.9% 1,000 ML IV SCH ×4 (00:09→20:56)
[2021-06-19] MEDS: ACETAMINOPHEN TAB 325 MG TAB PO PRN ×4 (00:09→21:01)
[2021-06-19 07:14] LABS: Glucose,Whole Blood 159 mg/dL (75-99)
[2021-06-19] MEDS: HEPARIN SODIUM,PORCINE/PF 5,000 UNIT/0.5 ML SYRINGE SQ SCH ×2 (08:35→20:55)
[2021-06-19] MEDS: INSULIN ASPART (NovoLOG) 100 UNIT/ML VIAL SQ SCH ×4 (08:35→20:55)
[2021-06-19] MEDS: LOSARTAN 50 MG TAB PO SCH (08:36)
[2021-06-19] MEDS: CHOLECALCIFEROL 25 MCG (1000 IU) TABLET PO SCH (08:36)
[2021-06-19] MEDS: metFORMIN 500 MG TAB PO SCH ×2 (08:36→20:54)
[2021-06-19] MEDS: ZINC SULFATE 220 MG CAP PO SCH (08:36)
[2021-06-19] MEDS: PIOGLITAZONE 15 MG TAB PO SCH (08:36)
[2021-06-19] MEDS: ASCORBIC ACID 500 MG TAB PO SCH (08:36)
[2021-06-19] MEDS: FAMOTIDINE 20 MG TAB PO SCH ×2 (08:36→20:54)
[2021-06-19 11:03] LABS: Glucose,Whole Blood 211 mg/dL (75-99)
--- NOTE | 2021-06-19 14:59 | P.PN ---
Subjective Progress Note Date: 06/19/21 06/19/2021 Patient evaluated today at the bedside. He does complain of some soreness to the right foot, there is some mild edema. Toe was visualized, it is cold and boggy with erythema surrounding the PIP joint. Bone scan showed findings suggestive for acute osteo-myelitis of the third digit right foot with increased uptake in all 3 phases. Pending consultation for vascular services. He continues on IV Kefzol per ID. Vital signs today show a blood pressure 154/85, 96% on room air, afebrile, heart rate 69. Denies chest pain cough or shortness of breath, he does report some looser stools which been ongoing at home. ROS Constitutional: Denied any fatigue denied any fever. Cardio vascular: denied any chest pain, palpitations Gastrointestinal denied any nausea vomiting, reports loose stool, denies blood Pulmonary: Denied any shortness of breath cough Neurologic denied any new focal deficits All inpatient medications were reviewed and appropriate changes in these medications as dictated in the interval history and assessment and plan. PHYSICAL EXAMINATION: GENERAL: The patient is alert and oriented x3, not in any acute distress. Well developed, well nourished. HEENT: Pupils are round and equally reacting to light. EOMI. No scleral icterus. No conjunctival pallor. Normocephalic, atraumatic. No pharyngeal erythema. No thyromegaly. CARDIOVASCULAR: S1 and S2 present. No murmurs, rubs, or gallops. PULMONARY: Chest is clear to auscultation, no wheezing or crackles. ABDOMEN: Soft, nontender, nondistended, normoactive bowel sounds. No palpable organomegaly. MUSCULOSKELETAL: No joint swelling or deformity. EXTREMITIES: No cyanosis, clubbing, mild edema right foot, right 3rd digit erythematous and cool . Positive pulses NEUROLOGICAL: Gross neurological examination did not reveal any focal deficits. SKIN: No rashes. Assessment and plan Assessment Acute diabetic foot ulcer with osteomyelitis of the right foot with staph aureus Bacteremia with staph aureus, repeat blood culture pending Hyponatremia possibly due to loose stools Anemia Diabetes mellitus type 2 Gastroesophageal reflux disease Hypertension Full Code GI prophylaxis: Pepcid DVT Prophylaxis: Subcu Heparin Plan Continue IV antibiotics Vascular consult Continue all other home meds Continue supportive care Repeat labs in the morning Objective - Vital Signs Vital signs: Vital Signs Temp 97.7 F 06/19/21 05:00 Pulse 74 06/19/21 05:00 Resp 16 06/19/21 05:00 BP 131/78 06/19/21 05:00 Pulse Ox 98 06/19/21 05:00 Intake & Output 06/18/21 06/19/21 06/19/21 18:59 06:59 18:59 Intake Total 1140 Balance 1140 Intake: Intake, IV Titration 1140 Amount Sodium Chloride 0.9% 1, 1040 000 ml @ 130 mls/hr IV . Q7H42M MOOSE Rx#:[id number] ceFAZolin 2 gm In Sodium 100 Chloride 0.9% 50 ml @ 100 mls/hr IVPB Q8H MOOSE Rx#: [id number] Other: Voiding Method Toilet # Voids 2 - Labs CBC & Chem 7: 06/18/21 06:15 06/18/21 11:20 Labs: Abnormal Lab Results - Last 24 Hours (Table) 06/18/21 06/18/21 06/18/21 Range/Units 06:15 11:20 12:05 Sodium 135 L (137-145) mmol/L Carbon Dioxide 21 L (22-30) mmol/L BUN 5.9 L 7 L (9.0-27.0) mg/dL BUN/Creatinine Ratio 7.38 L (12.00-20.00) Ratio Glucose 187 H 238 H (70-110) mg/dL POC Glucose (mg/dL) 218 H (75-99) mg/dL Calcium 8.3 L (8.7-10.3) mg/dL C-Reactive Protein 8.90 H (0.00-0.80) mg/dL 06/18/21 06/18/21 06/19/21 Range/Units 17:21 20:03 07:13 Sodium (137-145) mmol/L Carbon Dioxide (22-30) mmol/L BUN (9.0-27.0) mg/dL BUN/Creatinine Ratio (12.00-20.00) Ratio Glucose (70-110) mg/dL POC Glucose (mg/dL) 224 H 243 H 159 H (75-99) mg/dL Calcium (8.7-10.3) mg/dL C-Reactive Protein (0.00-0.80) mg/dL Microbiology - Last 24 Hours (Table) 06/18/21 06:15 Blood Culture - Preliminary Blood No Growth after 24 hours 06/16/21 18:59 Blood Culture - Preliminary Blood No Growth after 48 hours 06/16/21 18:59 Blood Culture Gram Stain - Preliminary Blood Blood Culture - Preliminary Staphylococcus aureus
[2021-06-19 17:30] LABS: Glucose,Whole Blood 199 mg/dL (75-99)
[2021-06-19 20:09] LABS: Glucose,Whole Blood 245 mg/dL (75-99)
[2021-06-20 06:17] LABS: Basophils % (A) 1 %; Eosinophils # (A) 0.2 k/uL (0-0.7); Eosinophils % (A) 5 %; HCT 35.8 % (39.0-53.0); Lymphocytes # (A) 1.5 k/uL (1.0-4.8); Lymphocytes % (A) 43 %; MCH 30.9 pg (25.0-35.0); MCHC 33.4 g/dL (31.0-37.0); MCV 92.4 fL (80.0-100.0); Mean Platelet Volume 7.8; Monocytes # (A) 0.2 k/uL (0-1.0); Monocytes % (A) 6 %; Neutrophils # (A) 1.5 k/uL (1.3-7.7); Neutrophils % (A) 43 %; Platelet Count 195 k/uL (150-450); RBC 3.88 m/uL (4.30-5.90); RDW 12.2 % (11.5-15.5); WBC 3.4 k/uL (3.8-10.6)
[2021-06-20 07:46] LABS: Glucose,Whole Blood 163 mg/dL (75-99)
[2021-06-20] MEDS: ASCORBIC ACID 500 MG TAB PO SCH (08:03)
[2021-06-20] MEDS: metFORMIN 500 MG TAB PO SCH ×2 (08:03→21:36)
[2021-06-20] MEDS: INSULIN ASPART (NovoLOG) 100 UNIT/ML VIAL SQ SCH ×4 (08:03→21:36)
[2021-06-20] MEDS: LOSARTAN 50 MG TAB PO SCH (08:03)
[2021-06-20] MEDS: CHOLECALCIFEROL 25 MCG (1000 IU) TABLET PO SCH (08:03)
[2021-06-20] MEDS: HEPARIN SODIUM,PORCINE/PF 5,000 UNIT/0.5 ML SYRINGE SQ SCH ×2 (08:03→21:36)
[2021-06-20] MEDS: FAMOTIDINE 20 MG TAB PO SCH ×2 (08:03→21:36)
[2021-06-20] MEDS: ZINC SULFATE 220 MG CAP PO SCH (08:03)
[2021-06-20] MEDS: PIOGLITAZONE 15 MG TAB PO SCH (08:04)
[2021-06-20] MEDS: SODIUM CHLORIDE 0.9% 1,000 ML IV SCH ×3 (08:06→21:38)
[2021-06-20 11:39] LABS: African American GFR (CKD) 116.9 (60.0-200.0); Anion Gap 13.1 mmol/L (10.00-18.00); BUN/Creat Ratio 9.52 Ratio (12.00-20.00); Blood Urea Nitrogen 7.7 mg/dL (9.0-27.0); Calcium 8.5 mg/dL (8.7-10.3); Carbon Dioxide 22.5 mmol/L (20.0-27.5); Non-African American GFR(CKD) 100.9 (60.0-200.0); Potassium 3.9 mmol/L (3.5-5.5)
[2021-06-20 12:04] LABS: Glucose,Whole Blood 174 mg/dL (75-99)
--- NOTE | 2021-06-20 13:43 | P.PN ---
Subjective Progress Note Date: 06/20/21 06/19/2021 Patient evaluated today at the bedside. He does complain of some soreness to the right foot, there is some mild edema. Toe was visualized, it is cold and boggy with erythema surrounding the PIP joint. Bone scan showed findings suggestive for acute osteo-myelitis of the third digit right foot with increased uptake in all 3 phases. Pending consultation for vascular services. He continues on IV Kefzol per ID. Vital signs today show a blood pressure 154/85, 96% on room air, afebrile, heart rate 69. Denies chest pain cough or shortness of breath, he does report some looser stools which been ongoing at home. 06/20/2021 Patient evaluated today walking back from the bathroom produces a history is overall improved and had no acute events overnight. We are pending vascular consultation. Labs today show white count 3.4, hemoglobin 12, potassium 2.9, BUN 7.7, creatinine 0.8, blood sugars are in the 160s. Vital signs today, temperature 98.3, heart rate 79, blood pressure 160/80 and he is 99% on room air. Continues on IV cefazolin for antibiotics. ROS Constitutional: Denied any fatigue denied any fever. Cardio vascular: denied any chest pain, palpitations Gastrointestinal denied any nausea vomiting, reports loose stool, denies blood Pulmonary: Denied any shortness of breath cough Neurologic denied any new focal deficits All inpatient medications were reviewed and appropriate changes in these medications as dictated in the interval history and assessment and plan. PHYSICAL EXAMINATION: GENERAL: The patient is alert and oriented x3, not in any acute distress. Well developed, well nourished. HEENT: Pupils are round and equally reacting to light. EOMI. No scleral icterus. No conjunctival pallor. Normocephalic, atraumatic. No pharyngeal erythema. No thyromegaly. CARDIOVASCULAR: S1 and S2 present. No murmurs, rubs, or gallops. PULMONARY: Chest is clear to auscultation, no wheezing or crackles. ABDOMEN: Soft, nontender, nondistended, normoactive bowel sounds. No palpable organomegaly. MUSCULOSKELETAL: No joint swelling or deformity. EXTREMITIES: No cyanosis, clubbing, mild edema right foot, right 3rd digit erythematous and cool . Positive pulses NEUROLOGICAL: Gross neurological examination did not reveal any focal deficits. SKIN: No rashes. Assessment and plan Assessment Acute diabetic foot ulcer with osteomyelitis of the right foot with staph aureus Bacteremia with staph aureus, repeat blood culture pending Hyponatremia possibly due to loose stools, resolved Anemia, improving Diabetes mellitus type 2 with hyperglycemia Gastroesophageal reflux disease Hypertension Full Code GI prophylaxis: Pepcid DVT Prophylaxis: Subcu Heparin Plan Continue IV antibiotics Vascular consult Continue all other home meds Continue supportive care Repeat labs in the morning Objective - Vital Signs Vital signs: Vital Signs Temp 98.3 F 06/20/21 05:00 Pulse 79 06/20/21 05:00 Resp 16 06/20/21 05:00 BP 152/80 06/20/21 05:00 Pulse Ox 99 06/20/21 05:00 Intake & Output 06/19/21 06/20/21 06/20/21 18:59 06:59 18:59 Intake Total 590 Balance 590 Intake: Oral 590 Other: Voiding Method Toilet Toilet # Voids 3 3 - Labs CBC & Chem 7: 06/20/21 05:26 06/20/21 05:26 Labs: Abnormal Lab Results - Last 24 Hours (Table) 06/19/21 06/19/21 06/20/21 Range/Units 17:26 20:08 05:26 WBC 3.4 L (3.8-10.6) k/uL RBC 3.88 L (4.30-5.90) m/uL Hgb 12.0 L (13.0-17.5) gm/dL Hct 35.8 L (39.0-53.0) % BUN (9.0-27.0) mg/dL BUN/Creatinine Ratio (12.00-20.00) Ratio Glucose (70-110) mg/dL POC Glucose (mg/dL) 199 H 245 H (75-99) mg/dL Calcium (8.7-10.3) mg/dL 06/20/21 06/20/21 06/20/21 Range/Units 05:26 07:45 12:02 WBC (3.8-10.6) k/uL RBC (4.30-5.90) m/uL Hgb (13.0-17.5) gm/dL Hct (39.0-53.0) % BUN 7.7 L (9.0-27.0) mg/dL BUN/Creatinine Ratio 9.52 L (12.00-20.00) Ratio Glucose 159 H (70-110) mg/dL POC Glucose (mg/dL) 163 H 174 H (75-99) mg/dL Calcium 8.5 L (8.7-10.3) mg/dL Microbiology - Last 24 Hours (Table) 06/18/21 06:15 Blood Culture - Preliminary Blood No Growth after 48 hours 06/16/21 18:59 Blood Culture - Preliminary Blood No Growth after 72 hours 06/16/21 18:59 Blood Culture Gram Stain - Final Blood Blood Culture - Final Staphylococcus aureus
--- NOTE | 2021-06-20 15:05 | P.GSCN ---
History of Present Illness Consult date: 06/20/21 Reason for Consult: Infected Right foot wound Requesting physician: Mervat Harris History of present illness: This is a 56-year-old male with a past medical history of diabetic neuropathy with a chronic diabetic ulcer to the plantar aspect of his right foot. He presented to the emergency department on 06/16/2021 for further evaluation and treatment. He states it started as a callus and he has been seeing a museum registrar who has been shaving the callus. He states it has been present for a couple months. He states however he just noticed about a week ago redness and a blisterlike appearance with swelling to his right third toe. He came into the emergency room for further evaluation and treatment. Patient states he was recommended to go to wound care center but declined due to cost. He denies any fevers or chills. He states that the redness has improved since he's been admitted to the hospital. Patient has been afebrile. WBC 3.4 hemoglobin 12.0 platelet count 195,000. Patient also states he's had chronic wounds to the left foot and has been told that he has Charcot foot. He is currently on cefazolin. 04/16/22 x-ray of the right foot that showed no evidence of acute fracture findings to suggest osteomyelitis. He then had a computed tomography scan of the right foot on 04/18/2022 that showed no suspicious bony destruction. Patient had a computed tomography scan of the right foot that showed a moderate to severe ill-defined fluid and mild to moderate soft tissue swelling greatest in the forefoot level. Findings are greatest along the plantar surface and laterally. No well-formed fluid collection or drainable abscess identified. No suspicious bony destruction. 3 phase bone scan of the right foot shows findings suggestive for acute osteomyelitis within the third digit right foot with increased uptake on all 3 phases of bone scan. Review of Systems 14 point review systems was completed all pertinent positives and negatives as stated in the HPI Past Medical History Past Medical History: Diabetes Mellitus, GERD/Reflux, Hypertension Additional Past Medical History / Comment(s): osteomyelitis and pain left foot, stepped on kristen nail October 2018,hx neuropathy History of Any Multi-Drug Resistant Organisms: None Reported Past Surgical History: Tonsillectomy Additional Past Surgical History / Comment(s): endoscopy Past Anesthesia/Blood Transfusion Reactions: No Reported Reaction Past Psychological History: No Psychological Hx Reported Smoking Status: Former smoker Past Alcohol Use History: Rare Additional Past Alcohol Use History / Comment(s): STARTED SMOKING AT AROUND 21 S MOKED LESS 1/2PPD QUIT 1989 Past Drug Use History: None Reported - Past Family History Mother Family Medical History: Cancer Additional Family Medical History / Comment(s): breast cancer Father Family Medical History: Cancer Additional Family Medical History / Comment(s): lung cancer Sister(s) Family Medical History: Cancer Additional Family Medical History / Comment(s): lung cancer Medications and Allergies Home Medications Medication Instructions Recorded Confirmed Type Olmesartan [Benicar] 20 mg PO DAILY 02/17/15 06/16/21 History metFORMIN HCL [Glucophage] 1,000 mg PO BID 02/17/15 06/16/21 History Ascorbic Acid [Vitamin C] 500 mg PO DAILY 06/16/21 06/16/21 History Cholecalciferol [Vitamin D3 (25 25 mcg PO DAILY 06/16/21 06/16/21 History Mcg = 1000 Iu)] Pioglitazone HCl 15 mg PO DAILY 06/16/21 06/16/21 History Sulfamethox-Tmp 800-160Mg [Bactrim 1 tab PO BID 06/16/21 06/16/21 History DS 800-160 mg] Zinc 50 mg PO DAILY 06/16/21 06/16/21 History Allergies Allergy/AdvReac Type Severity Reaction Status Date / Time levofloxacin [From Levaquin] Allergy Swelling, Verified 06/16/21 20:17 RASH Penicillins Allergy Unknown Verified 06/16/21 20:17 Childhood Surgical - Exam Vital Signs Temp Pulse Resp BP Pulse Ox 102.5 F H 127 H 18 162/79 98 06/16/21 18:03 06/16/21 18:03 06/16/21 18:03 06/16/21 18:03 06/16/21 18:03 General appearance: The patient is alert, oriented, in no acute distress. HET: Head is normocephalic and atraumatic. Neck: Supple without lymphadenopathy. Trachea midline. Heart: S1 S2. Regular rate and rhythm. Lungs: No crackles or wheezes are heard. Abdomen: Soft, nontender, nondistended. Extremities: Right foot with erythema and swelling. There is a diabetic ulcer on the plantar aspect of the forefoot. Diabetic infected ulcer to the right third toe with swelling and clear drainage. Left foot with first and second hammertoes. Palpable bilateral DP and PT pulses. Neurological: No focal deficits. Alert and oriented 3. Results - Labs 06/20/21 05:26 06/20/21 05:26 Abnormal Lab Results - Last 24 Hours (Table) 06/19/21 06/19/21 06/20/21 Range/Units 17:26 20:08 05:26 WBC 3.4 L (3.8-10.6) k/uL RBC 3.88 L (4.30-5.90) m/uL Hgb 12.0 L (13.0-17.5) gm/dL Hct 35.8 L (39.0-53.0) % BUN (9.0-27.0) mg/dL BUN/Creatinine Ratio (12.00-20.00) Ratio Glucose (70-110) mg/dL POC Glucose (mg/dL) 199 H 245 H (75-99) mg/dL Calcium (8.7-10.3) mg/dL 06/20/21 06/20/21 06/20/21 Range/Units 05:26 07:45 12:02 WBC (3.8-10.6) k/uL RBC (4.30-5.90) m/uL Hgb (13.0-17.5) gm/dL Hct (39.0-53.0) % BUN 7.7 L (9.0-27.0) mg/dL BUN/Creatinine Ratio 9.52 L (12.00-20.00) Ratio Glucose 159 H (70-110) mg/dL POC Glucose (mg/dL) 163 H 174 H (75-99) mg/dL Calcium 8.5 L (8.7-10.3) mg/dL Microbiology - Last 24 Hours (Table) 06/18/21 06:15 Blood Culture - Preliminary Blood No Growth after 48 hours 06/16/21 18:59 Blood Culture - Preliminary Blood No Growth after 72 hours 06/16/21 18:59 Blood Culture Gram Stain - Final Blood Blood Culture - Final Staphylococcus aureus Diabetes panel 06/20/21 Range/Units 05:26 Sodium 140 (135-145) mmol/L Potassium 3.9 (3.5-5.5) mmol/L Chloride 104 (96-109) mmol/L Carbon Dioxide 22.5 (20.0-27.5) mmol/L BUN 7.7 L (9.0-27.0) mg/dL Creatinine 0.8 (0.6-1.5) mg/dL Glucose 159 H (70-110) mg/dL Calcium 8.5 L (8.7-10.3) mg/dL Calcium panel 06/20/21 Range/Units 05:26 Calcium 8.5 L (8.7-10.3) mg/dL Pituitary panel 06/20/21 Range/Units 05:26 Sodium 140 (135-145) mmol/L Potassium 3.9 (3.5-5.5) mmol/L Chloride 104 (96-109) mmol/L Carbon Dioxide 22.5 (20.0-27.5) mmol/L BUN 7.7 L (9.0-27.0) mg/dL Creatinine 0.8 (0.6-1.5) mg/dL Glucose 159 H (70-110) mg/dL Calcium 8.5 L (8.7-10.3) mg/dL Adrenal panel 06/20/21 Range/Units 05:26 Sodium 140 (135-145) mmol/L Potassium 3.9 (3.5-5.5) mmol/L Chloride 104 (96-109) mmol/L Carbon Dioxide 22.5 (20.0-27.5) mmol/L BUN 7.7 L (9.0-27.0) mg/dL Creatinine 0.8 (0.6-1.5) mg/dL Glucose 159 H (70-110) mg/dL Calcium 8.5 L (8.7-10.3) mg/dL - Imaging Comments: Imaging viewed as stated in HPI Assessment and Plan Assessment: 1. Chronic diabetic ulcer to right foot 2. Osteomyelitis of the third toe, right foot 3. Diabetes mellitus with diabetic neuropathy Plan: 1. Continue IV antibiotics 2. Nothing by mouth after midnight 3. Patient scheduled for debridement of the right foot and possible amputation of the right third toe Thank you for this kind referral and the opportunity to participate in the care of your patient. The impression and plan of care has been dictated as directed. I performed a history and examination of this patient, discussed the same with the dictator. I agree with the dictator's note ,documented as a scribe. Any additional findings or plans will be noted.
[2021-06-20 17:30] LABS: Glucose,Whole Blood 178 mg/dL (75-99)
[2021-06-20 21:49] LABS: Glucose,Whole Blood 186 mg/dL (75-99)
--- NOTE | 2021-06-20 22:50 | P.PN ---
Subjective Progress Note Date: 06/18/21 Principal diagnosis: Right diabetic foot infection and bacteremia Patient is a 56-year male with a past medical he significant for diabetes mellitus presented to hospital with worsening right foot infection with infected callus on the plantar aspect of the right foot and involvement of his right third toe. On today's evaluation that is 06/18/2021 the patient is afebrile, the patient is breathing comfortably, patient denies having any chest pain shortness of breath or cough no nausea vomiting no abdominal pain and no worsening pain to the right foot Objective - Vital Signs Vital signs: Vital Signs Temp 97.8 F 06/18/21 12:14 Pulse 74 06/18/21 12:14 Resp 20 06/18/21 12:14 BP 137/77 06/18/21 12:14 Pulse Ox 98 06/18/21 12:14 Intake & Output 06/17/21 06/18/21 06/18/21 18:59 06:59 18:59 Intake Total 1600 Output Total 800 Balance 800 Intake: Intake, IV Titration 1600 Amount Sodium Chloride 0.9% 1, 1500 000 ml @ 130 mls/hr IV . Q7H42M MOOSE Rx#:[id number] ceFAZolin 2 gm In Sodium 100 Chloride 0.9% 50 ml @ 100 mls/hr IVPB Q8H MOOSE Rx#: [id number] Output: Urine 800 Other: Voiding Method Toilet # Voids 2 - Exam GENERAL DESCRIPTION: Middle-aged male lying in bed, no distress. No tachypnea or accessory muscle of respiration use. LUNGS: Unlabored breathing. Clear to auscultation anteriorly. No wheeze or crackle. HEART: S1, S2, regular rate and rhythm. No loud murmur ABDOMEN: Soft, no tenderness , guarding or rigidity, no organomegaly EXTREMITIES: Right foot plantar ulcer minimal drainage did have a swelling redness of the right third toe. - Labs CBC & Chem 7: 06/20/21 05:26 06/20/21 05:26 Labs: Abnormal Lab Results - Last 24 Hours (Table) 06/17/21 06/17/21 06/18/21 Range/Units 17:09 20:45 06:15 RBC 3.75 L (4.30-5.90) m/uL Hgb 11.5 L (13.0-17.5) gm/dL Hct 34.9 L (39.0-53.0) % ESR 72 H (0-15) mm/hr Sodium (137-145) mmol/L Carbon Dioxide (22-30) mmol/L BUN (9.0-27.0) mg/dL BUN/Creatinine Ratio (12.00-20.00) Ratio Glucose (70-110) mg/dL POC Glucose (mg/dL) 227 H 242 H (75-99) mg/dL Calcium (8.7-10.3) mg/dL C-Reactive Protein (0.00-0.80) mg/dL 06/18/21 06/18/21 06/18/21 Range/Units 06:15 08:17 11:20 RBC (4.30-5.90) m/uL Hgb (13.0-17.5) gm/dL Hct (39.0-53.0) % ESR (0-15) mm/hr Sodium 135 L (137-145) mmol/L Carbon Dioxide 21 L (22-30) mmol/L BUN 5.9 L 7 L (9.0-27.0) mg/dL BUN/Creatinine Ratio 7.38 L (12.00-20.00) Ratio Glucose 187 H 238 H (70-110) mg/dL POC Glucose (mg/dL) 198 H (75-99) mg/dL Calcium 8.3 L (8.7-10.3) mg/dL C-Reactive Protein 8.90 H (0.00-0.80) mg/dL 06/18/21 Range/Units 12:05 RBC (4.30-5.90) m/uL Hgb (13.0-17.5) gm/dL Hct (39.0-53.0) % ESR (0-15) mm/hr Sodium (137-145) mmol/L Carbon Dioxide (22-30) mmol/L BUN (9.0-27.0) mg/dL BUN/Creatinine Ratio (12.00-20.00) Ratio Glucose (70-110) mg/dL POC Glucose (mg/dL) 218 H (75-99) mg/dL Calcium (8.7-10.3) mg/dL C-Reactive Protein (0.00-0.80) mg/dL Microbiology - Last 24 Hours (Table) 06/16/21 18:59 Blood Culture Gram Stain - Preliminary Blood Blood Culture - Preliminary Staphylococcus aureus 06/16/21 18:59 Blood Culture - Preliminary Blood No Growth after 24 hours 06/16/21 18:59 Blood Culture - Final Blood Assessment and Plan Assessment: Patient admitted to hospital with right diabetic foot infection CT has been suspicious for fluid collection and abscess patient also have Streptococcus MSSA bacteremia antibiotic has been adjusted to cefazolin repeat blood culture has been ordered vascular surgery consult has been requested Time with Patient: Less than 30
--- NOTE | 2021-06-20 22:52 | P.PN ---
Subjective Progress Note Date: 06/19/21 Principal diagnosis: Right diabetic foot infection and bacteremia Patient is a 56-year male with a past medical he significant for diabetes mellitus presented to hospital with worsening right foot infection with infected callus on the plantar aspect of the right foot and involvement of his right third toe. On today's evaluation that is 06/19/2021 the patient Denies any fever or any chills, the patient is breathing comfortably, patient denies having any chest pain shortness of breath or cough no nausea vomiting no abdominal pain and pain to the right foot Is currently controlled Objective - Vital Signs Vital signs: Vital Signs Temp 98.1 F 06/20/21 14:00 Pulse 63 06/20/21 14:00 Resp 18 06/20/21 14:00 BP 164/88 06/20/21 14:00 Pulse Ox 97 06/20/21 14:00 Intake & Output 06/20/21 06/20/21 06/21/21 06:59 18:59 06:59 Intake Total 590 Balance 590 Intake: Oral 590 Other: Voiding Method Toilet Toilet # Voids 3 2 - Exam GENERAL DESCRIPTION: Middle-aged male lying in bed, no distress. No tachypnea or accessory muscle of respiration use. LUNGS: Unlabored breathing. Clear to auscultation anteriorly. No wheeze or crackle. HEART: S1, S2, regular rate and rhythm. No loud murmur ABDOMEN: Soft, no tenderness , guarding or rigidity, no organomegaly EXTREMITIES: Right foot plantar ulcer minimal drainage did have a swelling redness of the right third toe. - Labs CBC & Chem 7: 06/20/21 05:26 06/20/21 05:26 Labs: Abnormal Lab Results - Last 24 Hours (Table) 06/20/21 06/20/21 06/20/21 Range/Units 05:26 05:26 07:45 WBC 3.4 L (3.8-10.6) k/uL RBC 3.88 L (4.30-5.90) m/uL Hgb 12.0 L (13.0-17.5) gm/dL Hct 35.8 L (39.0-53.0) % BUN 7.7 L (9.0-27.0) mg/dL BUN/Creatinine Ratio 9.52 L (12.00-20.00) Ratio Glucose 159 H (70-110) mg/dL POC Glucose (mg/dL) 163 H (75-99) mg/dL Calcium 8.5 L (8.7-10.3) mg/dL 06/20/21 06/20/21 06/20/21 Range/Units 12:02 17:29 21:27 WBC (3.8-10.6) k/uL RBC (4.30-5.90) m/uL Hgb (13.0-17.5) gm/dL Hct (39.0-53.0) % BUN (9.0-27.0) mg/dL BUN/Creatinine Ratio (12.00-20.00) Ratio Glucose (70-110) mg/dL POC Glucose (mg/dL) 174 H 178 H 186 H (75-99) mg/dL Calcium (8.7-10.3) mg/dL Microbiology - Last 24 Hours (Table) 06/16/21 18:59 Blood Culture - Preliminary Blood No Growth after 96 hours 06/18/21 06:15 Blood Culture - Preliminary Blood No Growth after 48 hours Assessment and Plan Assessment: Patient admitted to hospital with right diabetic foot infection CT has been suspicious for fluid collection and abscess patient also have Streptococcus MSSA bacteremia antibiotic Patient to continue with the cefazolin repeat blood culture has been negative so far, vascular surgery consult has been requested Await their evaluation Time with Patient: Less than 30
--- NOTE | 2021-06-20 22:53 | P.PN ---
Subjective Progress Note Date: 06/20/21 Principal diagnosis: Right diabetic foot infection and bacteremia Patient is a 56-year male with a past medical he significant for diabetes mellitus presented to hospital with worsening right foot infection with infected callus on the plantar aspect of the right foot and involvement of his right third toe. On today's evaluation that is 06/20/2021 The patient remains to be afebrile, the patient denies having any chest pain shortness of breath or cough no nausea vomiting no abdominal pain or pain to the right foot area Objective - Vital Signs Vital signs: Vital Signs Temp 98.1 F 06/20/21 14:00 Pulse 63 06/20/21 14:00 Resp 18 06/20/21 14:00 BP 164/88 06/20/21 14:00 Pulse Ox 97 06/20/21 14:00 Intake & Output 06/20/21 06/20/21 06/21/21 06:59 18:59 06:59 Intake Total 590 Balance 590 Intake: Oral 590 Other: Voiding Method Toilet Toilet # Voids 3 2 - Exam GENERAL DESCRIPTION: Middle-aged male lying in bed, no distress. No tachypnea or accessory muscle of respiration use. LUNGS: Unlabored breathing. Clear to auscultation anteriorly. No wheeze or crackle. HEART: S1, S2, regular rate and rhythm. No loud murmur ABDOMEN: Soft, no tenderness , guarding or rigidity, no organomegaly EXTREMITIES: Right foot plantar ulcer minimal drainage did have a swelling redness of the right third toe. - Labs CBC & Chem 7: 06/20/21 05:26 06/20/21 05:26 Labs: Abnormal Lab Results - Last 24 Hours (Table) 06/20/21 06/20/21 06/20/21 Range/Units 05:26 05:26 07:45 WBC 3.4 L (3.8-10.6) k/uL RBC 3.88 L (4.30-5.90) m/uL Hgb 12.0 L (13.0-17.5) gm/dL Hct 35.8 L (39.0-53.0) % BUN 7.7 L (9.0-27.0) mg/dL BUN/Creatinine Ratio 9.52 L (12.00-20.00) Ratio Glucose 159 H (70-110) mg/dL POC Glucose (mg/dL) 163 H (75-99) mg/dL Calcium 8.5 L (8.7-10.3) mg/dL 06/20/21 06/20/21 06/20/21 Range/Units 12:02 17:29 21:27 WBC (3.8-10.6) k/uL RBC (4.30-5.90) m/uL Hgb (13.0-17.5) gm/dL Hct (39.0-53.0) % BUN (9.0-27.0) mg/dL BUN/Creatinine Ratio (12.00-20.00) Ratio Glucose (70-110) mg/dL POC Glucose (mg/dL) 174 H 178 H 186 H (75-99) mg/dL Calcium (8.7-10.3) mg/dL Microbiology - Last 24 Hours (Table) 06/16/21 18:59 Blood Culture - Preliminary Blood No Growth after 96 hours 06/18/21 06:15 Blood Culture - Preliminary Blood No Growth after 48 hours Assessment and Plan Assessment: Patient admitted to hospital with right diabetic foot infection CT has been suspicious for fluid collection and abscess patient also have Streptococcus MSSA bacteremia antibiotic Patient to continue with the cefazolin repeat blood culture has been negative so far, vascular surgery Has evaluated the patient and planning for amputation of the right third toe patient to continue cefazolin will need a PICC line and outpatient antibiotic therapy Time with Patient: Less than 30
[2021-06-21] MEDS: SODIUM CHLORIDE 0.9% 1,000 ML IV SCH ×2 (05:52→17:50)
[2021-06-21] MEDS: metFORMIN 500 MG TAB PO SCH ×3 (08:11→20:48)
[2021-06-21] MEDS: INSULIN ASPART (NovoLOG) 100 UNIT/ML VIAL SQ SCH ×4 (08:12→20:49)
[2021-06-21 09:52] LABS: Glucose,Whole Blood 128 mg/dL (75-99)
[2021-06-21 10:39] LABS: Glucose,Whole Blood 152 mg/dL (75-99)
[2021-06-21] MEDS ORDERED: LACTATED RINGERS 1,000 ML IV ONE (10:48)
[2021-06-21] MEDS ORDERED: ONDANSETRON 4 MG/2 ML VIAL IVP ONE (11:10)
[2021-06-21] MEDS ORDERED: GLYCOPYRROLATE 0.2 MG/ML 2 ML VIAL ONE (11:28)
[2021-06-21] MEDS ORDERED: MIDAZOLAM 2 MG/2 ML VIAL ONE (11:28)
[2021-06-21] MEDS ORDERED: HYDROmorphone (PF) 1 MG/ML ONE (11:28)
[2021-06-21] MEDS ORDERED: fentaNYL (PF) 50 MCG/ML 2 ML AMP ONE (11:28)
[2021-06-21] MEDS ORDERED: SUCCINYLCHOLINE CHLORIDE VIAL 200 MG/10 ML VIAL IV ONE (11:28)
[2021-06-21] MEDS ORDERED: PHENYLEPHRINE-0.9% NACL SYG 1,000 MCG/10 ML SYRINGE ONE (11:28)
[2021-06-21] MEDS ORDERED: LIDOCAINE 1% INJ 10MG/ML (20 ML MDV) ONE (11:28)
[2021-06-21] MEDS ORDERED: PROPOFOL 10 MG/ML 20 ML VIAL IV ONE (11:28)
--- NOTE | 2021-06-21 12:51 | P.OP ---
Date of Procedure: 06/21/21 Description of Procedure: Preoperative diagnosis: Diabetic toe infection, right third toe, diabetic foot wound, osteomyelitis Postoperative diagnosis: Same, bony destruction with pathologic fracture from infection Procedure: Right third toe amputation] Surgeon: Aletha Heard D.O. EBL: [Minimal] IV fluids: [See records] Urine output: [Not measured] Drains: [None] Complications: [None immediately apparent] Condition: [Stable to recovery] Operative indication and findings: [Patient is a 56-year-old diabetic male who has had a long-standing history of a diabetic foot ulceration with calluses been treated as an outpatient for the past many months by a environmental protection specialist including IV antibiotics. He began having increasing redness other 4 he presented to the hospital. Workup and imaging revealed evidence of osteomyelitis. Given the ongoing issue and concern now has to myelitis was decided he would benefit from an indentation of this toe. Risks and benefits were discussed. He seemingly understood and was willing to proceed as such] Procedure in detail: [Patient was taken to the operative suite placed in supine position. The right lower extremity was prepped and draped in usual sterile fashion. A preprocedure timeout was performed, all parties were in agreement. An elliptical incision was made surrounding the base of the toe and brought down to the level of the plantar wound. Using electrocautery the saphenous tissues were dissected free. The midshaft of the PIP was fractured. The proximal portion was excised as well. The distal tip of the metatarsal bone was resected with rongeur to healthy appearing bone. The area was then copiously irrigated. There is no evidence of purulent drainage or skin necrotic tissue therefore the decision was made to close. The subcu and deep dermal Tissues were reapproximated with interrupted sutures of 3-0 Vicryl. The skin was reapproximated with interrupted mattress sutures of 3-0 nylon. Dressings were placed. The patient was allowed awaken from anesthesia and transferred to recovery in stable condition having tolerated her procedure well]
[2021-06-21 13:02] LABS: Glucose,Whole Blood 152 mg/dL (75-99)
[2021-06-21] MEDS: ZINC SULFATE 220 MG CAP PO SCH (14:20)
[2021-06-21] MEDS: CHOLECALCIFEROL 25 MCG (1000 IU) TABLET PO SCH (14:20)
[2021-06-21] MEDS: ASCORBIC ACID 500 MG TAB PO SCH (14:20)
[2021-06-21] MEDS: LOSARTAN 50 MG TAB PO SCH (14:20)
[2021-06-21] MEDS: ACETAMINOPHEN TAB 325 MG TAB PO PRN (14:21)
[2021-06-21] MEDS: PIOGLITAZONE 15 MG TAB PO SCH (14:21)
[2021-06-21] MEDS: HEPARIN SODIUM,PORCINE/PF 5,000 UNIT/0.5 ML SYRINGE SQ SCH ×2 (14:22→20:49)
[2021-06-21] MEDS: FAMOTIDINE 20 MG TAB PO SCH ×2 (14:22→20:48)
[2021-06-21 14:25] LABS: Glucose,Whole Blood 167 mg/dL (75-99)
--- NOTE | 2021-06-21 15:20 | P.PN ---
Subjective Progress Note Date: 06/21/21 06/19/2021 Patient evaluated today at the bedside. He does complain of some soreness to the right foot, there is some mild edema. Toe was visualized, it is cold and boggy with erythema surrounding the PIP joint. Bone scan showed findings suggestive for acute osteo-myelitis of the third digit right foot with increased uptake in all 3 phases. Pending consultation for vascular services. He continues on IV Kefzol per ID. Vital signs today show a blood pressure 154/85, 96% on room air, afebrile, heart rate 69. Denies chest pain cough or shortness of breath, he does report some looser stools which been ongoing at home. 06/20/2021 Patient evaluated today walking back from the bathroom produces a history is overall improved and had no acute events overnight. We are pending vascular consultation. Labs today show white count 3.4, hemoglobin 12, potassium 2.9, BUN 7.7, creatinine 0.8, blood sugars are in the 160s. Vital signs today, temperature 98.3, heart rate 79, blood pressure 160/80 and he is 99% on room air. Continues on IV cefazolin for antibiotics. 06/21/2021 No acute events overnight. Patient underwent right third toe amputation today with Dr. Heard. Initial blood culture finalized to show staph aureus, repeat blood culture negative. Continues on IV cefazolin for antibiotic coverage. Blood sugars in the 160s. Vital signs patient afebrile, heart rate 69, blood pressure 136/73 and he is 97% on room air. ROS Constitutional: Denied any fatigue denied any fever. Cardio vascular: denied any chest pain, palpitations Gastrointestinal denied any nausea vomiting Pulmonary: Denied any shortness of breath cough Neurologic denied any new focal deficits All inpatient medications were reviewed and appropriate changes in these medications as dictated in the interval history and assessment and plan. PHYSICAL EXAMINATION: GENERAL: The patient is alert and oriented x3, not in any acute distress. Well developed, well nourished. HEENT: Pupils are round and equally reacting to light. EOMI. No scleral icterus. No conjunctival pallor. Normocephalic, atraumatic. No pharyngeal erythema. No thyromegaly. CARDIOVASCULAR: S1 and S2 present. No murmurs, rubs, or gallops. PULMONARY: Chest is clear to auscultation, no wheezing or crackles. ABDOMEN: Soft, nontender, nondistended, normoactive bowel sounds. No palpable organomegaly. MUSCULOSKELETAL: No joint swelling or deformity. EXTREMITIES: No cyanosis, clubbing, mild edema right foot, right 3rd digit erythematous and cool . Positive pulses NEUROLOGICAL: Gross neurological examination did not reveal any focal deficits. SKIN: No rashes. Assessment and plan Assessment Acute diabetic foot ulcer with osteomyelitis of the right foot third toe status post surgical amputation Bacteremia with staph aureus, repeat blood culture pending Hyponatremia possibly due to loose stools, resolved Anemia most likely due to infection, improving Diabetes mellitus type 2 with hyperglycemia Gastroesophageal reflux disease Hypertension Full Code GI prophylaxis: Pepcid DVT Prophylaxis: Subcu Heparin Plan Continue IV antibiotics Continue all other home meds Continue supportive care Repeat labs in the morning Objective - Vital Signs Vital signs: Vital Signs Temp 97.2 F L 06/21/21 10:50 Pulse 64 06/21/21 10:50 Resp 20 06/21/21 10:50 BP 175/81 06/21/21 10:50 Pulse Ox 98 06/21/21 10:50 Intake & Output 06/20/21 06/21/21 06/21/21 18:59 06:59 18:59 Intake Total 100 0 Balance 100 0 Intake: IV 0 Oral 100 Other: Voiding Method Toilet Toilet # Voids 2 - Labs CBC & Chem 7: 06/20/21 05:26 06/20/21 05:26 Labs: Abnormal Lab Results - Last 24 Hours (Table) 06/20/21 06/20/21 06/21/21 Range/Units 17:29 21:27 07:44 POC Glucose (mg/dL) 178 H 186 H 128 H (75-99) mg/dL 06/21/21 Range/Units 10:38 POC Glucose (mg/dL) 152 H (75-99) mg/dL Microbiology - Last 24 Hours (Table) 06/18/21 06:15 Blood Culture - Preliminary Blood No Growth after 72 hours 06/16/21 18:59 Blood Culture - Preliminary Blood No Growth after 96 hours
[2021-06-21 17:31] LABS: Glucose,Whole Blood 189 mg/dL (75-99)
--- NOTE | 2021-06-21 17:50 | CDI ---
Documentation Clarification Form Date: 06/21/2021 05:36:44 PM From: Laurie HerreraSUHA mccarthy, CCDS Admit Date: 06/16/2021 07:47:00 PM Patient Name: Kelby Mckee Visit Number: [id number] Discharge Date: ATTENTION: The Clinical Documentation Specialists (CDI) and [facility] Coding Staff appreciate your assistance in clarifying documentation. Please respond to the clarification below the line at the bottom and electronically sign. The CDI & [facility] Coding staff will review the response and follow-up if needed. Please note: Queries are made part of the Legal Health Record. If you have any questions, please contact the author of this message via ITS. Dr. Alejandra Szymanski: Sepsis is documented in the 06/16 ED Note: Concern for Sepsis. Bacteremia is documented in the 06/17 Infectious Disease Consult and in subsequent Progress Notes: Right diabetic foot infection with Streptococcus MSSA bacteremia. Additional clarification regarding the etiology/cause of the clinical indicators is requested. History/Risk Factors per the 06/17 H/P: IDDM II, Neuropathy, GERD, Hypertension, Osteomyelitis Left Foot. Clinical Indicators: Presented to the ED on 06/16 with worsening diabetic foot ulcer to the right foot. Has had right foot ulcer since January of last year. Admit with Cellulitis 06/16 VS: T 102.5, P 127, R 18, BP 162/79, PO 98 RA, BMI: 32.9 06/16 LAB: WBC 7.9, Lymph 0.8; APTT 21.6; Na 132, CO2 20, Glucose 273, Lactic Acid 3.1, 2.4; Mag 1.4 06/16 RAD: No evidence of acute fracture or findings to suggest osteomyelitis. 06/18 CT Right Foot: No suspicious bony destruction. Hallux valgus positioning first metatarsophalangeal joint, no acute displaced fracture. 06/18 3 Phase Bone Scan: Findings suggestive for acute osteomyelitis within the 3rd digit right foot with increased uptake on all 3 phases of bone scan. 06/21 Procedure: Right third toe amputation. Treatment 06/16: Blood Cultures, I Na Cl 1,000 mls @ 999 mls/hr q1H, IV Na Cl 3,000 mls @ 999 mls/hr q2H, IV Cefepime 100 mls @ 200 mls/hr x1, I Vancomycin 500 mls @ 167 mls/hr x1. 06/17: IV Vancomycin, IV Cefazolin 50 mls @ 100 mls/hr q8H. In your professional opinion, please clarify if these findings signify one of the following conditions: [x ] Sepsis POA [ ] Sepsis, Not POA [ ] Sepsis ruled out [ ] Other, please specify [ ] Unable to determine (Template Last Reviewed: July 2020) VLADISLAV
[2021-06-21 19:54] LABS: Glucose,Whole Blood 131 mg/dL (75-99)
[2021-06-21] MEDS ORDERED: BENZOCAINE/MENTHOL LOZENG 1 EACH LOZENGE MUCOUS MEM PRN (21:47)
[2021-06-22] MEDS: SODIUM CHLORIDE 0.9% 1,000 ML IV SCH ×4 (04:42→22:23)
[2021-06-22 06:01] LABS: Basophils % (A) 1 %; Eosinophils # (A) 0.1 k/uL (0-0.7); Eosinophils % (A) 2 %; HCT 35.5 % (39.0-53.0); HGB 11.9 gm/dL (13.0-17.5); Lymphocytes # (A) 1.1 k/uL (1.0-4.8); Lymphocytes % (A) 29 %; MCH 31.8 pg (25.0-35.0); MCHC 33.4 g/dL (31.0-37.0); MCV 95.2 fL (80.0-100.0); Mean Platelet Volume 7.4; Monocytes # (A) 0.2 k/uL (0-1.0); Monocytes % (A) 5 %; Neutrophils # (A) 2.2 k/uL (1.3-7.7); Neutrophils % (A) 60 %; Platelet Count 196 k/uL (150-450); RBC 3.73 m/uL (4.30-5.90); RDW 13.2 % (11.5-15.5); WBC 3.6 k/uL (3.8-10.6)
[2021-06-22 07:58] LABS: Glucose,Whole Blood 172 mg/dL (75-99)
[2021-06-22] MEDS: metFORMIN 500 MG TAB PO SCH ×2 (08:10→19:49)
[2021-06-22] MEDS: CHOLECALCIFEROL 25 MCG (1000 IU) TABLET PO SCH (08:10)
[2021-06-22] MEDS: LOSARTAN 50 MG TAB PO SCH (08:11)
[2021-06-22] MEDS: ASCORBIC ACID 500 MG TAB PO SCH (08:12)
[2021-06-22] MEDS: FAMOTIDINE 20 MG TAB PO SCH ×2 (08:12→19:49)
[2021-06-22] MEDS: ACETAMINOPHEN TAB 325 MG TAB PO PRN ×2 (08:16→19:48)
[2021-06-22] MEDS: INSULIN ASPART (NovoLOG) 100 UNIT/ML VIAL SQ SCH ×4 (08:17→20:28)
[2021-06-22] MEDS: HEPARIN SODIUM,PORCINE/PF 5,000 UNIT/0.5 ML SYRINGE SQ SCH ×2 (08:25→19:50)
[2021-06-22] MEDS: PIOGLITAZONE 15 MG TAB PO SCH (08:25)
[2021-06-22] MEDS: ZINC SULFATE 220 MG CAP PO SCH (08:25)
[2021-06-22 10:14] LABS: African American GFR (CKD) 117.4 (60.0-200.0); Anion Gap 11.3 mmol/L (10.00-18.00); BUN/Creat Ratio 6.88 Ratio (12.00-20.00); Blood Urea Nitrogen 5.5 mg/dL (9.0-27.0); Calcium 8.3 mg/dL (8.7-10.3); Carbon Dioxide 24.7 mmol/L (20.0-27.5); Non-African American GFR(CKD) 101.3 (60.0-200.0); Potassium 3.8 mmol/L (3.5-5.5)
[2021-06-22 12:44] LABS: Glucose,Whole Blood 141 mg/dL (75-99)
[2021-06-22 12:55] VITALS: BMI 32.9
[2021-06-22] MEDS ORDERED: LIDOCAINE 1% INJ 10MG/ML (20 ML MDV) SQ ONE (14:47)
--- NOTE | 2021-06-22 16:00 | IR ---
EXAMINATION TYPE: IR cvc insert >=5 years DATE OF EXAM: 06/22/2021 COMPARISON: NONE CLINICAL HISTORY: Infection Needs long-term intravenous access for antibiotics. PROCEDURE: Hand hygiene obtained with soap and water and alcohol-based hand rub. After informed consent, the skin overlying the left basilic vein was localized with ultrasound and no ion to be compressible and patent. An ultrasound image was obtained and submitted on the patient's c harrison. The overlying skin was prepped and draped and Lidocaine was used for local anesthesia. A skin paula was made with a scalpel. Access was gained to the vein under ultrasound guidance with a 21 gau ge needle and a 0.018 inch wire was advanced. Access site was dilated with Peel-Away sheath and cath eter tailored to the appropriate length and advanced such that the distal tip is at the cavoatrial ju nction. Spot image was obtained verifying placement. Catheter was fixed to the skin and a sterile d ressing was placed following hemostasis. Catheter was aspirated and flushed with saline. Patient wa s discharged in stable condition without complication. Maximal barrier technique is utilized. Ultras ound image is documented on the chart. Ultrasound used with sterile technique. Fluoro time and fluoroscopic images submitted to document procedure: 13 intraoperative images documen t the procedure, 0.3 minutes fluoroscopy time IMPRESSION: STATUS POST ULTRASOUND AND FLUOROSCOPIC GUIDED PICC LINE PLACEMENT, READY FOR USE. THIS PROCEDURE WAS PERFORMED BY THE UNDERSIGNED.
--- NOTE | 2021-06-22 16:39 | P.PN ---
Subjective Progress Note Date: 06/22/21 06/19/2021 Patient evaluated today at the bedside. He does complain of some soreness to the right foot, there is some mild edema. Toe was visualized, it is cold and boggy with erythema surrounding the PIP joint. Bone scan showed findings suggestive for acute osteo-myelitis of the third digit right foot with increased uptake in all 3 phases. Pending consultation for vascular services. He continues on IV Kefzol per ID. Vital signs today show a blood pressure 154/85, 96% on room air, afebrile, heart rate 69. Denies chest pain cough or shortness of breath, he does report some looser stools which been ongoing at home. 06/20/2021 Patient evaluated today walking back from the bathroom produces a history is overall improved and had no acute events overnight. We are pending vascular consultation. Labs today show white count 3.4, hemoglobin 12, potassium 2.9, BUN 7.7, creatinine 0.8, blood sugars are in the 160s. Vital signs today, temperature 98.3, heart rate 79, blood pressure 160/80 and he is 99% on room air. Continues on IV cefazolin for antibiotics. 06/21/2021 No acute events overnight. Patient underwent right third toe amputation today with Dr. Heard. Initial blood culture finalized to show staph aureus, repeat blood culture negative. Continues on IV cefazolin for antibiotic coverage. Blood sugars in the 160s. Vital signs patient afebrile, heart rate 69, blood pressure 136/73 and he is 97% on room air. 06/22/2021 No acute events overnight. Patient did receive a PICC line today however he is unable to be discharged as IV antibiotics were unable to be ordered. We will plan for discharge in the morning and IV daptomycin versus IV cefazolin. Patient denies any chest pain cough or shortness of breath, no nausea vomiting or diarrhea. Appetite is well. Pain is controlled. Labs today show a white count 3.6, hemoglobin 11.9, sodium 140, potassium 3.8, BUN 5.5, creatinine 0.8, blood sugars in the 140s. Patient is afebrile, heart rate 75 sinus rhythm, blood pressure 149/83 he is 96% room air. ROS Constitutional: Denied any fatigue denied any fever. Cardio vascular: denied any chest pain, palpitations Gastrointestinal denied any nausea vomiting Pulmonary: Denied any shortness of breath cough Neurologic denied any new focal deficits All inpatient medications were reviewed and appropriate changes in these medications as dictated in the interval history and assessment and plan. PHYSICAL EXAMINATION: GENERAL: The patient is alert and oriented x3, not in any acute distress. Well developed, well nourished. HEENT: Pupils are round and equally reacting to light. EOMI. No scleral icterus. No conjunctival pallor. Normocephalic, atraumatic. No pharyngeal erythema. No thyromegaly. CARDIOVASCULAR: S1 and S2 present. No murmurs, rubs, or gallops. PULMONARY: Chest is clear to auscultation, no wheezing or crackles. ABDOMEN: Soft, nontender, nondistended, normoactive bowel sounds. No palpable organomegaly. MUSCULOSKELETAL: No joint swelling or deformity. EXTREMITIES: No cyanosis, clubbing, mild edema right foot, right 3rd digit erythematous and cool . Positive pulses NEUROLOGICAL: Gross neurological examination did not reveal any focal deficits. SKIN: No rashes. Assessment and plan Assessment Acute diabetic foot ulcer with osteomyelitis of the right foot third toe status post surgical amputation Bacteremia with staph aureus, repeat blood culture pending Hyponatremia possibly due to loose stools, resolved Anemia most likely due to infection, stable Diabetes mellitus type 2 with hyperglycemia Gastroesophageal reflux disease Hypertension Full Code GI prophylaxis: Pepcid DVT Prophylaxis: Subcu Heparin Plan Continue IV antibiotics Continue all other home meds Continue supportive care Discharge in the morning when IV antibiotics are set for home care infusions. Objective - Vital Signs Vital signs: Vital Signs Temp 97.7 F 06/22/21 12:30 Pulse 56 L 06/22/21 12:30 Resp 16 06/22/21 12:30 BP 149/83 06/22/21 12:30 Pulse Ox 96 06/22/21 12:30 Intake & Output 06/21/21 06/22/21 06/22/21 18:59 06:59 18:59 Intake Total 700 1040 Output Total 20 Balance 680 1040 Weight 129.274 kg Intake: IV 700 Intake, IV Titration 1040 Amount Sodium Chloride 0.9% 1, 1040 000 ml @ 130 mls/hr IV . Q7H42M [facility] Rx#:[id number] Output: Estimated Blood Loss 20 Other: Voiding Method Toilet Toilet - Labs CBC & Chem 7: 06/22/21 05:18 06/22/21 05:18 Labs: Abnormal Lab Results - Last 24 Hours (Table) 06/21/21 06/21/21 06/22/21 Range/Units 17:30 19:52 05:18 WBC 3.6 L (3.8-10.6) k/uL RBC 3.73 L (4.30-5.90) m/uL Hgb 11.9 L (13.0-17.5) gm/dL Hct 35.5 L (39.0-53.0) % BUN (9.0-27.0) mg/dL BUN/Creatinine Ratio (12.00-20.00) Ratio Glucose (70-110) mg/dL POC Glucose (mg/dL) 189 H 131 H (75-99) mg/dL Calcium (8.7-10.3) mg/dL 06/22/21 06/22/21 06/22/21 Range/Units 05:18 07:57 12:31 WBC (3.8-10.6) k/uL RBC (4.30-5.90) m/uL Hgb (13.0-17.5) gm/dL Hct (39.0-53.0) % BUN 5.5 L (9.0-27.0) mg/dL BUN/Creatinine Ratio 6.88 L (12.00-20.00) Ratio Glucose 145 H (70-110) mg/dL POC Glucose (mg/dL) 172 H 141 H (75-99) mg/dL Calcium 8.3 L (8.7-10.3) mg/dL Microbiology - Last 24 Hours (Table) 06/18/21 06:15 Blood Culture - Preliminary Blood No Growth after 96 hours 06/16/21 18:59 Blood Culture - Preliminary Blood No Growth after 120 hours
--- NOTE | 2021-06-22 16:41 | P.PN ---
Subjective Progress Note Date: 06/21/21 Principal diagnosis: Right diabetic foot infection and bacteremia Patient is a 56-year male with a past medical he significant for diabetes mellitus presented to hospital with worsening right foot infection with infected callus on the plantar aspect of the right foot and involvement of his right third toe. Patient is status post amputation of the right third toe comp leted on 06/21/2021 On today's evaluation that is 06/21/2021 The patient continues to be afebrile, th e patient denies having any chest pain shortness of breath or cough no nausea vomiting no abdominal pain, the patient denies pain to the right foot area Objective - Vital Signs Vital signs: Vital Signs Temp 97.6 F 06/21/21 12:50 Pulse 69 06/21/21 13:15 Resp 16 06/21/21 13:15 BP 136/73 06/21/21 13:15 Pulse Ox 97 06/21/21 13:15 Intake & Output 06/20/21 06/21/21 06/21/21 18:59 06:59 18:59 Intake Total 100 700 Output Total 20 Balance 100 680 Intake: IV 700 Oral 100 Output: Estimated Blood Loss 20 Other: Voiding Method Toilet Toilet # Voids 2 - Exam GENERAL DESCRIPTION: Middle-aged male lying in bed, no distress. No tachypnea or accessory muscle of respiration use. LUNGS: Unlabored breathing. Clear to auscultation anteriorly. No wheeze or crackle. HEART: S1, S2, regular rate and rhythm. No loud murmur ABDOMEN: Soft, no tenderness , guarding or rigidity, no organomegaly EXTREMITIES: Right foot plantar ulcer minimal drainage did have a swelling redness of the right third toe. - Labs CBC & Chem 7: 06/22/21 05:18 06/22/21 05:18 Labs: Abnormal Lab Results - Last 24 Hours (Table) 06/20/21 06/20/21 06/21/21 Range/Units 17:29 21:27 07:44 POC Glucose (mg/dL) 178 H 186 H 128 H (75-99) mg/dL 06/21/21 06/21/21 Range/Units 10:38 13:00 POC Glucose (mg/dL) 152 H 152 H (75-99) mg/dL Microbiology - Last 24 Hours (Table) 06/18/21 06:15 Blood Culture - Preliminary Blood No Growth after 72 hours 06/16/21 18:59 Blood Culture - Preliminary Blood No Growth after 96 hours Assessment and Plan (1) MSSA bacteremia Current Visit: Yes Status: Acute Code(s): R78.81 - BACTEREMIA; B95.61 - METHICILLIN SUSCEP STAPH INFCT CAUSING DIS CLASSD ELSWHR SNOMED Code(s): 802559907 (2) Cellulitis of right foot Current Visit: No Status: Acute Priority: Medium Code(s): L03.115 - CELLULITIS OF RIGHT LOWER LIMB SNOMED Code(s): 645479206 Plan: patient admitted to hospital with right diabetic foot infection CT has been suspicious for fluid collection and abscess patient also have Streptococcus MSSA bacteremia antibiotic Patient to continue with the cefazolin repeat blood culture has been negative so far, patient is status post amputation of the right third toe with infected part removed and there was no evidence of any necrotic border left lower part of the vascular surgery patient will need at least 2 weeks of IV antibiotic therapy Time with Patient: Less than 30
--- NOTE | 2021-06-22 16:42 | P.PN ---
Subjective Progress Note Date: 06/22/21 Principal diagnosis: Right diabetic foot infection and bacteremia Patient is a 56-year male with a past medical he significant for diabetes mellitus presented to hospital with worsening right foot infection with infected callus on the plantar aspect of the right foot and involvement of his right third toe. Patient is status post amputation of the right third toe comp leted on 06/21/2021 On today's evaluation that is 06/22/2021 The patient denies any fever or chills, the patient denies having any chest pain shortness of breath or cough, the patient denies nausea vomiting no abdominal pain, the patient denies pain to the right foot area Objective - Vital Signs Vital signs: Vital Signs Temp 97.9 F 06/22/21 04:45 Pulse 75 06/22/21 04:45 Resp 18 06/22/21 04:45 BP 143/77 06/22/21 04:45 Pulse Ox 95 06/22/21 04:45 Intake & Output 06/21/21 06/22/21 06/22/21 18:59 06:59 18:59 Intake Total 700 1040 Output Total 20 Balance 680 1040 Weight 129.274 kg Intake: IV 700 Intake, IV Titration 1040 Amount Sodium Chloride 0.9% 1, 1040 000 ml @ 130 mls/hr IV . Q7H42M [facility] Rx#:[id number] Output: Estimated Blood Loss 20 Other: Voiding Method Toilet Toilet - Exam GENERAL DESCRIPTION: Middle-aged male lying in bed, no distress. No tachypnea or accessory muscle of respiration use. LUNGS: Unlabored breathing. Clear to auscultation anteriorly. No wheeze or crackle. HEART: S1, S2, regular rate and rhythm. No loud murmur ABDOMEN: Soft, no tenderness , guarding or rigidity, no organomegaly EXTREMITIES: Right foot is currently dressed no drainage on the dressing - Labs CBC & Chem 7: 06/22/21 05:18 06/22/21 05:18 Labs: Abnormal Lab Results - Last 24 Hours (Table) 06/21/21 06/21/21 06/21/21 Range/Units 14:22 17:30 19:52 WBC (3.8-10.6) k/uL RBC (4.30-5.90) m/uL Hgb (13.0-17.5) gm/dL Hct (39.0-53.0) % BUN (9.0-27.0) mg/dL BUN/Creatinine Ratio (12.00-20.00) Ratio Glucose (70-110) mg/dL POC Glucose (mg/dL) 167 H 189 H 131 H (75-99) mg/dL Calcium (8.7-10.3) mg/dL 06/22/21 06/22/21 06/22/21 Range/Units 05:18 05:18 07:57 WBC 3.6 L (3.8-10.6) k/uL RBC 3.73 L (4.30-5.90) m/uL Hgb 11.9 L (13.0-17.5) gm/dL Hct 35.5 L (39.0-53.0) % BUN 5.5 L (9.0-27.0) mg/dL BUN/Creatinine Ratio 6.88 L (12.00-20.00) Ratio Glucose 145 H (70-110) mg/dL POC Glucose (mg/dL) 172 H (75-99) mg/dL Calcium 8.3 L (8.7-10.3) mg/dL 06/22/21 Range/Units 12:31 WBC (3.8-10.6) k/uL RBC (4.30-5.90) m/uL Hgb (13.0-17.5) gm/dL Hct (39.0-53.0) % BUN (9.0-27.0) mg/dL BUN/Creatinine Ratio (12.00-20.00) Ratio Glucose (70-110) mg/dL POC Glucose (mg/dL) 141 H (75-99) mg/dL Calcium (8.7-10.3) mg/dL Microbiology - Last 24 Hours (Table) 06/18/21 06:15 Blood Culture - Preliminary Blood No Growth after 96 hours 06/16/21 18:59 Blood Culture - Preliminary Blood No Growth after 120 hours Assessment and Plan (1) Cellulitis Current Visit: Yes Status: Acute Code(s): L03.90 - CELLULITIS, UNSPECIFIED SNOMED Code(s): 502522406 (2) MSSA bacteremia Current Visit: Yes Status: Acute Code(s): R78.81 - BACTEREMIA; B95.61 - METHICILLIN SUSCEP STAPH INFCT CAUSING DIS CLASSD ELSWHR SNOMED Code(s): 741241157 Plan: patient admitted to hospital with right diabetic foot infection CT has been suspicious for fluid collection and abscess patient also have Streptococcus MSSA bacteremia antibiotic Patient to continue with the cefazolin repeat blood culture has been negative so far, patient is status post amputation of the right third toe with infected part removed and there was no evidence of any necrotic border left lower part of the vascular surgery patient will need at least 2 weeks of IV antibiotic therapy because of his bacteremia currently waiting for outpatient IV antibiotic arrangements/approval from the insurance Time with Patient: Less than 30
[2021-06-22 17:05] LABS: Glucose,Whole Blood 140 mg/dL (75-99)
[2021-06-22 20:24] LABS: Glucose,Whole Blood 145 mg/dL (75-99)
[2021-06-23] MEDS: SODIUM CHLORIDE 0.9% 1,000 ML IV SCH (06:07)
[2021-06-23 07:44] LABS: Glucose,Whole Blood 128 mg/dL (75-99)
[2021-06-23] MEDS: INSULIN ASPART (NovoLOG) 100 UNIT/ML VIAL SQ SCH ×2 (07:52→13:05)
[2021-06-23] MEDS: CHOLECALCIFEROL 25 MCG (1000 IU) TABLET PO SCH (08:03)
[2021-06-23] MEDS: FAMOTIDINE 20 MG TAB PO SCH (08:03)
[2021-06-23] MEDS: metFORMIN 500 MG TAB PO SCH (08:03)
[2021-06-23] MEDS: HEPARIN SODIUM,PORCINE/PF 5,000 UNIT/0.5 ML SYRINGE SQ SCH (08:03)
[2021-06-23] MEDS: PIOGLITAZONE 15 MG TAB PO SCH (08:03)
[2021-06-23] MEDS: ZINC SULFATE 220 MG CAP PO SCH (08:03)
[2021-06-23] MEDS: LOSARTAN 50 MG TAB PO SCH (08:03)
[2021-06-23] MEDS: ASCORBIC ACID 500 MG TAB PO SCH (08:03)
[2021-06-23 11:58] LABS: Glucose,Whole Blood 148 mg/dL (75-99)
[2021-06-23 12:31] VITALS: BP 150/92; PULSE 73; RESP 17; TEMP 97.9
--- NOTE | 2021-06-23 14:20 | P.DS ---
Providers Date of admission: 06/16/21 19:47 Attending physician: Louis Mckeon MD Consults: 06/16/21 18:34 Consult Physician Routine Consulting Provider: Clarence Tavares Consult Reason/Comments: osteomyelitis Do you want consulting provider notified?: Yes 06/19/21 15:22 Consult Physician Routine Consulting Provider: Aletha Heard Consult Reason/Comments: osteomyelitis, 3rd toe right foot Do you want consulting provider notified?: Yes Primary care physician: Jocelynn Castle Hospital Course: Final Diagnosis Acute diabetic foot ulcer with osteomyelitis of the right foot third toe status post surgical amputation Bacteremia with staph aureus, repeat blood culture pending Hyponatremia possibly due to loose stools, resolved Anemia most likely due to infection, stable Diabetes mellitus type 2 with hyperglycemia Gastroesophageal reflux disease Hypertension Discharge Disposition Patient is in stable condition and cleared medically for discharge. He will complete a 4 week course of IV antibiotics outpatient. PICC line is in place. Hospital Course This is a pleasant 56-year-old male with past medical history significant for diabetes mellitus, GERD, hypertension, history of ostomy myelitis and pain to the left foot after stepping on a kristen nail in October 2018, also history of neuropathy, former smoker. Presents to the EC with right foot pain and presents with a foot ulcer to the bottom his right foot that has been ongoing since January 2021. He was send by his accountant to the hospital for MRI and evaluation, however was discharged initially on antibiotics. He reported to this [facility] after redness and swelling began to creep up the foot from the 3rd toe on the right foot. Foot CT taken on admission shows evidence for moderate soft tissue swelling. Foot xray presents with no acute findings for osteomyelitis. He was admitted and consulted to ID and vascular services. He was started on IV cefazolin in patient. Patient taken to the OR for surgical debridment of the right 3rd toe for chronic diabetic foot wound, diabetic toe infection and osteomyelitis which resulted in amputation of the right 3rd toe on the foot and there was evidence of bony destruction with pathologic fracture from infection. Blood cultures are positive for staphylococcus aureas. Because of this patient received a PICC line and will be discharged on 4 weeks of IV cefazolin 2 gm every 8 hours. Labs on admission show WBC of 7.9, sodium 132, blood glucose 273, lactic acid 2.4, magnesium 1.4, CRP 8.9, urinalysis negative for infection, Coronavirus PCR not detected. Vitals have remained stable, pt afebrile. 06/23/2021 Patient cleared for discharge today. IV antibiotics have been set up and patient did receive his dose here this afternoon and will resume infusions in the morning with homecare. Labs reviewed include hgb 12.0, sodium 140, potassium 3.9, glucose in the 150's. Lactic acid improved to 1.9 on the 16th. Most recent vitals show temp 97.9, heart rate 73, blood pressure 150/92, 99% on room air. He can resume his metformin on discharge. He denies chest pain, chest pressure, cough or shortness of breath. Denies nausea, vomiting, or diarrhea. Reports mild pain to right foot which has been controlled with tylenol. Lungs are clear, S1 S2 auscultated, abdomen is soft and nontender. Positive pedal pulses, dressing to right foot and PICC line site in tact. Patient to be discharged. Please see medication reconciliation for a list of current medications. Thank you for allowing us to participate in the care of this patient. Patient Condition at Discharge: Stable Plan - Discharge Summary Discharge Rx Participant: Yes New Discharge Prescriptions: New ceFAZolin [Kefzol] 2 gm IVP Q8HR #84 each Benzocaine/Menthol Lozeng [Cepacol lozenge] 1 each MUCOUS MEM Q4HR PRN #0 lozenge PRN Reason: Sore Throat Famotidine [Pepcid] 20 mg PO Q12HR 30 Days #60 tab Acetaminophen Tab [Tylenol] 650 mg PO Q6HR PRN tab PRN Reason: Mild Pain Or Fever > 100.5 Benzocaine/Menthol [Cepacol Sore Throat Lozenge] 1 each MM Q4H #30 lozenge Continue metFORMIN HCL [Glucophage] 1,000 mg PO BID Olmesartan [Benicar] 20 mg PO DAILY Zinc 50 mg PO DAILY Cholecalciferol [Vitamin D3 (25 Mcg = 1000 Iu)] 25 mcg PO DAILY Pioglitazone HCl 15 mg PO DAILY Ascorbic Acid [Vitamin C] 500 mg PO DAILY No Action Sulfamethox-Tmp 800-160Mg [Bactrim DS 800-160 mg] 1 tab PO BID Discharge Medication List Olmesartan [Benicar] 20 mg PO DAILY 02/17/15 [History] metFORMIN HCL [Glucophage] 1,000 mg PO BID 02/17/15 [History] Ascorbic Acid [Vitamin C] 500 mg PO DAILY 06/16/21 [History] Cholecalciferol [Vitamin D3 (25 Mcg = 1000 Iu)] 25 mcg PO DAILY 06/16/21 [History] Pioglitazone HCl 15 mg PO DAILY 06/16/21 [History] Sulfamethox-Tmp 800-160Mg [Bactrim DS 800-160 mg] 1 tab PO BID 06/16/21 [History] Zinc 50 mg PO DAILY 06/16/21 [History] ceFAZolin [Kefzol] 2 gm IVP Q8HR #84 each 06/22/21 [Rx] Acetaminophen Tab [Tylenol] 650 mg PO Q6HR PRN tab 06/23/21 [Rx] Benzocaine/Menthol Lozeng [Cepacol lozenge] 1 each MUCOUS MEM Q4HR PRN #0 lozenge 06/23/21 [Rx] Benzocaine/Menthol [Cepacol Sore Throat Lozenge] 1 each MM Q4H #30 lozenge 06/23/21 [Rx] Famotidine [Pepcid] 20 mg PO Q12HR 30 Days #60 tab 06/23/21 [Rx] Follow up Appointment(s)/Referral(s): Corrine Cabezas MD [Primary Care Provider] - 1-2 days Aletha Heard DO [STAFF PHYSICIAN] - [facility], [NON-[facility]FF[facility] - 1 Week [facility], [REFERRING] - 1 Week Clarence Tavares MD [STAFF PHYSICIAN] - Ambulatory/Diagnostic Orders: Basic Metabolic Panel [LAB.AMB] Time Frame: 7 Days, Location: None Selected Patient Instructions/Handouts: Cellulitis (DC) Activity/Diet/Wound Care/Special Instructions: [facility] will deliver antibiotics and supplies sometime this evening. Discharge Disposition: HOME WITH HOME HEALTH SERVICES
== END 2021-06-23 13:50 | disposition home health service (06) | DRG 854 ==
LOC: EC 18:01 → 5NMEDONC 19:47
PROVIDERS: ADMIT Internal Medicine; ATTEND Internal Medicine
PROC: 0Y6T0Z0 Detachment at Right 3rd Toe, Complete, Open Approach (ICD-10-PCS; principal; 2021-06-21 08:40)
PROC: 02HV33Z Insertion of Infusion Device into Superior Vena Cava, Percutaneous Approach (ICD-10-PCS; 2021-06-23)
DX: A41.01 Sepsis due to Methicillin susceptible Staphylococcus aureus (principal); E87.1 Hypo-osmolality and hyponatremia; E87.2 Acidosis; L03.115 Cellulitis of right lower limb; M84.674A Pathological fracture in other disease, right foot, initial encounter for fracture; M86.10 Other acute osteomyelitis, unspecified site; D64.9 Anemia, unspecified; E11.40 Type 2 diabetes mellitus with diabetic neuropathy, unspecified; E11.610 Type 2 diabetes mellitus with diabetic neuropathic arthropathy; E11.621 Type 2 diabetes mellitus with foot ulcer; E11.628 Type 2 diabetes mellitus with other skin complications; E11.65 Type 2 diabetes mellitus with hyperglycemia; E11.69 Type 2 diabetes mellitus with other specified complication; E66.9 Obesity, unspecified; I10 Essential (primary) hypertension; K21.9 Gastro-esophageal reflux disease without esophagitis; L97.519 Non-pressure chronic ulcer of other part of right foot with unspecified severity; S91.13 Puncture wound without foreign body of toe without damage to nail; W45.0XXS Nail entering through skin, sequela; Z20.822 Contact with and (suspected) exposure to COVID-19; Z79.84 Long term (current) use of oral hypoglycemic drugs; Z79.899 Other long term (current) drug therapy; Z80.1 Family history of malignant neoplasm of trachea, bronchus and lung; Z80.3 Family history of malignant neoplasm of breast; Z87.891 Personal history of nicotine dependence; Z90.89 Acquired absence of other organs; Z98.890 Other specified postprocedural states; Z79.2 Long term (current) use of antibiotics; Z88.1 Allergy status to other antibiotic agents; Z88.0 Allergy status to penicillin
CPT/HCPCS: 36415; 36573; 78315; 80048; 80053; 80202; 81003; 83605; 83735; 85025; 85610; 85652; 85730; 86140; 87040; 87077; 87186; 87635; 93005; 96365; 96375; 99284

== ENCOUNTER → 2022-02-07 | Outpatient (CLI) | payer BC ==
[2022-02-07 14:48] LABS: Basophils # (A) 0.03 X 10*3/uL (0.00-0.10); Basophils % (A) 0.6 %; Eosinophils # (A) 0.11 X 10*3/uL (0.04-0.35); Eosinophils % (A) 2.2 %; HCT 40.9 % (39.6-50.0); Immature Grans, Automated 0.6 %; Lymphocytes # (A) 2.42 X 10*3/uL (0.90-5.00); Lymphocytes % (A) 49.5 %; MCH 31.5 pg (27.0-32.0); MCHC 34.2 g/dL (32.0-37.0); MCV 91.9 fL (80.0-97.0); Mean Platelet Volume 10.1 fL (9.5-12.2); Monocytes # (A) 0.38 X 10*3/uL (0.20-1.00); Monocytes % (A) 7.8 %; NRBC Per 100 WBC 0 /100 WBCS (0.0-0.0); Neutrophils # (A) 1.92 X 10*3/uL (1.80-7.70); Neutrophils % (A) 39.3 %; Platelet Count 143 X 10*3/uL (140-440); RBC 4.45 X 10*6/uL (4.40-5.60); RDW 12.1 % (11.5-14.5); WBC 4.89 X 10*3/uL (4.50-10.00)
[2022-02-07 15:47] LABS: ALT 36 U/L (10-49); AST 21 U/L (14-35); African American GFR (CKD) 96.6 (60.0-200.0); Albumin 4.5 g/dL (3.8-4.9); Albumin/Globulin Ratio 2.05 (1.60-3.17); Alkaline Phosphatase 60 U/L (41-126); Blood Urea Nitrogen 10.1 mg/dL (9.0-27.0); C Reactive Protein <0.30 mg/dL (0.00-0.80); Calcium 9.3 mg/dL (8.7-10.3); Carbon Dioxide 23.7 mmol/L (20.0-27.5); Chloride 101 mmol/L (96-109); Globulin 2.2 g/dL (1.6-3.3); Glucose 192 mg/dL (70-110); Non-African American GFR(CKD) 83.4 (60.0-200.0); Potassium 4.5 mmol/L (3.5-5.5); Prealbumin 30.3 mg/dL (18.0-42.0); Sodium 138 mmol/L (135-145); Total Protein 6.6 g/dL (6.2-8.2)
[2022-02-07 16:09] LABS: Erythrocyte Sedimentation Rate 1 mm/Hr (0-20)
--- NOTE | 2022-02-07 16:35 | NM ---
EXAMINATION TYPE: NM bone 3 phase DATE OF EXAM: 02/07/2022 COMPARISON: 06/18/2021 and x-ray 06/16/2021 HISTORY: 57-year-old male with osteomyelitis, M86.171. Technique: Triple phase bone scintigraphy was performed following the injection of 21.1 mCi Tc 99m MD P. Immediate images and 5.25 hours post injection images acquired. Imaging centered at the bilateral distal lower extremities. FINDINGS: Flow images show asymmetric hyperemia right foot. Blood pool shows corresponding increased activity m id right forefoot. On delayed scan, smaller area of focal intense uptake probably at the plantar aspe ct of the second metatarsal head. There seems to be some focal increased activity involving the tip of the left second toe. Increased a ctivity throughout the left mid foot probably on a degenerative basis. IMPRESSION: 1. Three-phase bone scan abnormality mid right forefoot possibly localizing to the plantar aspect of the second metatarsal head. Unable to exclude osteomyelitis here especially if there is an overlying plantar ulcer. CT or MRI can be performed if clinically indicated. 2. Small focus of increased activity seems to localize to the tip of the left second toe on pool and delayed images. This may be on a posttraumatic basis. Correlate to exclude any soft tissue ulcer or p ossibility of osteomyelitis here of the phalangeal tuft. 3. Similar degenerative tracer activity throughout the left midfoot.
== END | disposition home or self-care (01) ==
LOC: RADNMMAIN 07:24
PROVIDERS: ATTEND Podiatrist
DX: M86.9 Osteomyelitis, unspecified (principal)
CPT/HCPCS: 84134; 80053; 85652; 85025; 86140; 83036; 78315; A9503

== ENCOUNTER → 2022-02-21 | Outpatient (CLI) | payer BC | END | disposition home or self-care (01) | LOC: RADNMMAIN 06:53 | PROVIDERS: ATTEND Podiatrist | DX: Z53.9 Procedure and treatment not carried out, unspecified reason (principal) ==

== ENCOUNTER → 2022-02-27 | Outpatient (CLI) | payer BC | END | disposition home or self-care (01) | LOC: RADNMMAIN 06:45 | PROVIDERS: ATTEND Podiatrist | DX: Z53.9 Procedure and treatment not carried out, unspecified reason (principal) ==

== ENCOUNTER → 2022-04-30 | Day surgery (SDC) | payer BC ==
[~2022-04-30] MED LIST changes: -DEXAMETHASONE SOD PHOSPHATE 10 MG/ML 1 ML VIAL IV ONE; -HYDROmorphone 0.5 MG/0.5 ML SYRINGE IVP PRN; +LIDOCAINE 1% INJ 10MG/ML (30 ML VIAL-PF) SQ ONE; -MIDAZOLAM 2 MG/2 ML VIAL IV PRN; -ONDANSETRON 4 MG/2 ML VIAL IVP ONE; -Pre Op ABX Message 1 EACH MISC MISCELLANE ONE; -SCOPOLAMINE 1.5MG/72HR PATCH TRANSDERM ONE; +VANCOMYCIN 1,500 MG in SODIUM CHLORIDE 0.9% 500 ML 500 ML IVPB ONE; +VANCOMYCIN 1,500 MG in SODIUM CHLORIDE 0.9% 500 ML 500 ML IVPB STA
[2022-04-30 10:27] VITALS: BP 144/70; PULSE 62; RESP 16; TEMP 98.2
--- NOTE | 2022-04-30 12:52 | IR ---
EXAM NAME: IR FLUORO GUIDANCE FOR VEIN ACC DEVICE. PROCEDURE: Image-guided placement of left upper extremity, single lumen PICC. DATE OF PROCEDURE: 04/30/2022 12:36 PM INDICATION: 57-year-old male need of IV access. RADIOLOGIST: Dr. Caraballo DIRECTOR OF LITIGATION: Lito ANESTHESIA: Local lidocaine FLUORO TIME: 0.2 minutes. RADIATION DOSE:Ka,r = 2.75 mGy CATHETER: 4-[place] single lumen valved PICC TECHNIQUE: I verify that I have discussed the potential benefits, risks, and side effects regarding this treatme nt/procedure, the likelihood of the patient achieving his or her goals, and the potential problems th at might occur during recuperation. I verify that I have explained the alternatives to the patient including the risks, benefits, and side effects related to the alternatives and the risks related to not receiving the operation/procedure/treatment. The patient/surrogate decision maker has had an opp ortunity to ask and have questions answered. I have secured the patient's or the surrogate decision maker's consent prior to the operation/procedure/treatment. The patient was placed supine on the angiography table and the left upper extremity prepped and drape d, (All elements of Maximal Sterile Barrier Technique including a cap, mask, sterile gown and sterile gloves, with a large sterile sheet and hand hygiene, plus 2% chlorhexidine for cutaneous antisepsis (or acceptable alternative antiseptics per current guideline), as well as sterile ultrasound gel and probe covers), in the usual sterile fashion. After infiltration of local anesthetic, the basilic vei n was punctured using ultrasound guidance with a 21-gauge needle. Under fluoroscopic guidance, with automated exposure control, via Seldinger technique, a 0.018 wire and a dilator/peel-away sheath wer e placed. The wire was removed and the catheter cut to appropriate length. The tailored catheter wa s advanced through the peel-away and positioned using fluoroscopic guidance. The sheath was removed and hemostasis achieved. The catheter was flushed, and secured to the arm with a fixation device. A sterile dressing was applied. The procedure was well-tolerated and the patient discharged from the procedure room in stable condition. Dr. Caraballo was present for and actively participated in the pro cedure. FINDINGS: Ultrasound guidance with image documentation of antegrade blood flow was utilized for venous access. A limited documentation radiograph shows the catheter tip to be in the region of the superior atrioc aval junction. IMPRESSION: 1. Successful, uncomplicated image-guided placement of left upper extremity, 4 F, single lumen, boom pherally inserted central venous catheter. 2. The catheter is approved for immediate use.
== END ==
LOC: CATHCVL 10:00
PROVIDERS: ATTEND Radiology Diagnostic Radiology
DX: Z45.2 Encounter for adjustment and management of vascular access device (principal); Z88.0 Allergy status to penicillin; Z88.1 Allergy status to other antibiotic agents
CPT/HCPCS: 36573; J3370; J2001

== ENCOUNTER 2022-11-09 13:02 | Inpatient (IN) | payer BC ==
[2022-11-09] MEDS ORDERED: ACETAMINOPHEN TAB 500 MG TAB PO STA (14:47)
--- NOTE | 2022-11-09 14:50 | ED ---
General Adult HPI - General Chief complaint: Skin/Abscess/Foreign Body Stated complaint: Infection Time Seen by Provider: 11/09/22 14:38 Source: patient, family, RN notes reviewed Mode of arrival: wheelchair Limitations: no limitations - History of Present Illness Initial comments: Patient is a pleasant 57-year-old male presenting to the emergency department with concerns with wound to the right foot. Patient does notice this couple days ago. Patient has had decreased appetite the past couple of days with increased blood sugar. Patient has had decreased appetite with limited oral intake. Patient has had nausea. No abdominal pain. No vomiting. No constipation or diarrhea. No fevers at home. Patient has neuropathy. Patient denies any foot pain. - Related Data Home Medications Medication Instructions Recorded Confirmed Olmesartan [Benicar] 20 mg PO DAILY 02/17/15 04/30/22 metFORMIN HCL [Glucophage] 1,250 mg PO BID 02/17/15 04/30/22 Pioglitazone HCl 30 mg PO DAILY 06/16/21 04/30/22 Previous Rx's Medication Instructions Recorded Acetaminophen Tab [Tylenol] 650 mg PO Q6HR PRN tab 06/23/21 Allergies Allergy/AdvReac Type Severity Reaction Status Date / Time levofloxacin [From Levaquin] Allergy Swelling, Verified 11/09/22 13:19 RASH Penicillins Allergy Unknown Verified 11/09/22 13:19 Childhood Review of Systems ROS Statement: Those systems with pertinent positive or pertinent negative responses have been documented in the HPI. ROS Other: All systems not noted in ROS Statement are negative. Constitutional: Reports: as per HPI Eyes: Denies: eye pain ENT: Denies: ear pain Respiratory: Denies: cough Cardiovascular: Denies: chest pain Endocrine: Denies: fatigue Gastrointestinal: Denies: abdominal pain Genitourinary: Denies: urgency Musculoskeletal: Denies: back pain Skin: Reports: as per HPI Past Medical History Past Medical History: Diabetes Mellitus, GERD/Reflux, Hypertension Additional Past Medical History / Comment(s): osteomyelitis and pain left foot, stepped on kristen nail October 2018,hx neuropathy History of Any Multi-Drug Resistant Organisms: MRSA Date of last positivie culture/infection: march 2022 MDRO Source:: toe Past Surgical History: Tonsillectomy Additional Past Surgical History / Comment(s): endoscopy, middle toe rt foot removed ,lft 2nd toe tip removed Past Anesthesia/Blood Transfusion Reactions: No Reported Reaction Past Psychological History: No Psychological Hx Reported Smoking Status: Former smoker Past Alcohol Use History: None Reported Past Drug Use History: None Reported - Past Family History Mother Family Medical History: Cancer Additional Family Medical History / Comment(s): breast cancer Father Family Medical History: Cancer Additional Family Medical History / Comment(s): lung cancer Sister(s) Family Medical History: Cancer Additional Family Medical History / Comment(s): lung cancer General Exam Limitations: no limitations General appearance: alert, in no apparent distress Head exam: Present: normocephalic Eye exam: Present: normal appearance Neck exam: Present: normal inspection Respiratory exam: Present: normal lung sounds bilaterally Cardiovascular Exam: Present: tachycardia GI/Abdominal exam: Present: soft. Absent: tenderness Extremities exam: Present: other (Right distal dorsal foot with ulcer approximately 4 x 2 cm. Minimal surrounding erythema. No tenderness. Patient has previous third toe of palpitations) Neurological exam: Present: alert Psychiatric exam: Present: normal affect, normal mood Skin exam: Present: other (Foot ulcer) Course Vital Signs 11/09/22 13:15 Temperature 101.5 F H Pulse Rate 113 H Respiratory 18 Rate Blood Pressure 128/72 O2 Sat by Pulse 98 Oximetry EKG Findings - EKG Results: EKG: interpreted by ERMD, sinus rhythm, normal axis, normal QRS, normal ST/T EKG shows: tachycardia Medical Decision Making - Medical Decision Making Was pt. sent in by a medical professional or institution (, PA, CABINETMAKER HELPER, urgent care, hospital, or prison...) When possible be specific @ -No Did you speak to anyone other than the patient for history (EMS, parent, family, police, friend...)? What history was obtained from this source @ -Family hodges right history including history of previous ulcer and amputation Did you review nursing and triage notes (agree or disagree)? Why? @ -I reviewed and agree with nursing and triage notes Were old charts reviewed (outside hosp., previous admission, EMS record, old EKG, old radiological studies, urgent care reports/EKG's, prison records)? Report findings @ -No old charts were reviewed Differential Diagnosis (chest pain, altered mental status, abdominal pain women, abdominal pain men, vaginal bleeding, weakness, fever, dyspnea, syncope, h eadache, dizziness, GI bleed, back pain, seizure, CVA, palpatations, mental health)? @ -Differential Fever: Pneumonia, viral URI, endocarditis, myocarditis, pericarditis, otitis, sinusitis, peritonsillar Abscess, retropharyngeal Abscess, epiglottitis, peritonitis, appendicitis, Lizzette cystitis, diverticulitis, hepatitis, colitis, UTI, PID, TOA, pyelonephritis, prostatitis, epididymitis, meningitis, encephalitis, pulmonary embolism, CVA, thyroid storm, pancreatitis, adrenal cr chinmay, cavernous sinus thrombosis, this is not meant to be an all-inclusive list. EKG interpreted by me (3pts min.). @ -As above X-rays interpreted by me (1pt min.). @ -X-ray shows previous amputation. Cannot rule out early osteo-distal third metatarsal CT interpreted by me (1pt min.). @ -None done U/S interpreted by me (1pt. min.). @ -None done What testing was considered but not performed or refused? (CT, X-rays, U/S, labs)? Why? @ -None What meds were considered but not given or refused? Why? @ -None Did you discuss the management of the patient with other professionals (professionals i.e. , PA, CABINETMAKER HELPER, lab, RT, psych nurse, social media marketer, sanitation worker, teacher, chief human resources officer, case monitor)? Give summary @ -Case discussed with Dr. Mohr who will admit covering Dr. Trevino. He agrees with cefepime and does recommend adding vancomycin Was smoking cessation discussed for >3mins.? @ -No Was critical care preformed (if so, how long)? @ -32 minutes critical care Were there social determinants of health that impacted care today? How? (Homelessness, low income, unemployed, alcoholism, drug addiction, transportation, low edu. Level, literacy, decrease access to med. care, long-term, rehab)? @ -No Was there de-escalation of care discussed even if they declined (Discuss DNR or withdrawal of care, Hospice)? DNR status @ -No What co-morbidities impacted this encounter? (DM, HTN, Smoking, COPD, CAD, Cancer, CVA, ARF, Chemo, Hep., AIDS, mental health diagnosis, sleep apnea, morbid obesity)? @ -None Was patient admitted / discharged? Hospital course, mention meds given and route, prescriptions, significant lab abnormalities, going to OR and other pertinent info. @ -Patient reevaluated. Patient will be admitted. There is concern for sepsis diagnosed at 1630. Blood culture and lactic acid and IV antibiotics have all been ordered. Vancomycin will be added. Infectious disease will be consult. Orders written. Undiagnosed new problem with uncertain prognosis? @ -No Drug Therapy requiring intensive monitoring for toxicity (Heparin, Nitro, Insulin, Cardizem)? @ -No Were any procedures done? @ -No Diagnosis/symptom? @ -Diabetic foot ulcer, osteomyelitis, sepsis Acute, or Chronic, or Acute on Chronic? @ -Acute, acute, acute Uncomplicated (without systemic symptoms) or Complicated (systemic symptoms)? @ -Diabetic foot ulcer Acute with sepsis and probable osteo-myelitis Side effects of treatment? @ -No Exacerbation, Progression, or Severe Exacerbation? @ -No Poses a threat to life or bodily function? How? (Chest pain, [place], NH, pneumonia, PE, COPD, DKA, ARF, appy, cholecystitis, CVA, Diverticulitis, Homicidal, Suicidal, threat to staff... and all critical care pts) @ -Does pose a threat to function of foot with infection - Lab Data Result diagrams: 11/09/22 14:51 11/09/22 14:51 Lab Results 11/09/22 11/09/22 11/09/22 Range/Units 14:51 14:51 14:51 WBC 7.2 (3.8-10.6) k/uL RBC 3.85 L (4.30-5.90) m/uL Hgb 12.1 L (13.0-17.5) gm/dL Hct 34.4 L (39.0-53.0) % MCV 89.5 (80.0-100.0) fL MCH 31.4 (25.0-35.0) pg MCHC 35.1 (31.0-37.0) g/dL RDW 12.6 (11.5-15.5) % Plt Count 113 L (150-450) k/uL MPV 9.1 Neutrophils % 83 % Lymphocytes % 8 % Monocytes % 6 % Eosinophils % 1 % Basophils % 0 % Neutrophils # 5.9 (1.3-7.7) k/uL Lymphocytes # 0.6 L (1.0-4.8) k/uL Monocytes # 0.4 (0-1.0) k/uL Eosinophils # 0.1 (0-0.7) k/uL Basophils # 0.0 (0-0.2) k/uL PT 11.4 (9.0-12.0) sec INR 1.1 (<1.2) APTT 24.1 (22.0-30.0) sec Sodium 129 L (137-145) mmol/L Potassium 5.8 H (3.5-5.1) mmol/L Chloride 92 L (98-107) mmol/L Carbon Dioxide 19 L (22-30) mmol/L Anion Gap 18 mmol/L BUN 21 H (9-20) mg/dL Creatinine 1.32 H (0.66-1.25) mg/dL Est GFR (CKD-EPI)AfAm 70 (>60 ml/min/1.73 sqM) Est GFR (CKD-EPI)NonAf 61 (>60 ml/min/1.73 sqM) Glucose 329 H (74-99) mg/dL Plasma Lactic Acid Andrey (0.7-2.0) mmol/L Calcium 7.8 L (8.4-10.2) mg/dL Total Bilirubin 2.0 H (0.2-1.3) mg/dL AST 82 H (17-59) U/L ALT 50 H (4-49) U/L Alkaline Phosphatase 39 (38-126) U/L Total Protein 7.7 (6.3-8.2) g/dL Albumin 4.2 (3.5-5.0) g/dL 11/09/22 Range/Units 14:51 WBC (3.8-10.6) k/uL RBC (4.30-5.90) m/uL Hgb (13.0-17.5) gm/dL Hct (39.0-53.0) % MCV (80.0-100.0) fL MCH (25.0-35.0) pg MCHC (31.0-37.0) g/dL RDW (11.5-15.5) % Plt Count (150-450) k/uL MPV Neutrophils % % Lymphocytes % % Monocytes % % Eosinophils % % Basophils % % Neutrophils # (1.3-7.7) k/uL Lymphocytes # (1.0-4.8) k/uL Monocytes # (0-1.0) k/uL Eosinophils # (0-0.7) k/uL Basophils # (0-0.2) k/uL PT (9.0-12.0) sec INR (<1.2) APTT (22.0-30.0) sec Sodium (137-145) mmol/L Potassium (3.5-5.1) mmol/L Chloride (98-107) mmol/L Carbon Dioxide (22-30) mmol/L Anion Gap mmol/L BUN (9-20) mg/dL Creatinine (0.66-1.25) mg/dL Est GFR (CKD-EPI)AfAm (>60 ml/min/1.73 sqM) Est GFR (CKD-EPI)NonAf (>60 ml/min/1.73 sqM) Glucose (74-99) mg/dL Plasma Lactic Acid Andrey 3.6 H* (0.7-2.0) mmol/L Calcium (8.4-10.2) mg/dL Total Bilirubin (0.2-1.3) mg/dL AST (17-59) U/L ALT (4-49) U/L Alkaline Phosphatase (38-126) U/L Total Protein (6.3-8.2) g/dL Albumin (3.5-5.0) g/dL Critical Care Time Critical Care Time: Yes Total Critical Care Time: 32 Disposition Clinical Impression: Diabetic foot ulcer, Osteomyelitis, Sepsis Disposition: ADMITTED IP TO THIS [facility] Condition: Serious Is patient prescribed a controlled substance at d/c from ED?: No Referrals: Corrine Cabezas MD [Primary Care Provider] - 1-2 days Time of Disposition: 16:34
[2022-11-09] MEDS ORDERED: ONDANSETRON 4 MG/2 ML VIAL IVP STA (14:52)
[2022-11-09] MEDS ORDERED: FAMOTIDINE 20 MG/2 ML VIAL IV STA (14:52)
[2022-11-09] MEDS ORDERED: CEFEPIME 2 GM in SODIUM CHLORIDE 0.9% 100 ML IVPB STA (14:56)
[2022-11-09] MEDS: SODIUM CHLORIDE 0.9% 1,000 ML IV SCH (15:36)
[2022-11-09 15:42] LABS: Basophils % (A) 0 %; Eosinophils # (A) 0.1 k/uL (0-0.7); Eosinophils % (A) 1 %; HCT 34.4 % (39.0-53.0); HGB 12.1 gm/dL (13.0-17.5); Lymphocytes # (A) 0.6 k/uL (1.0-4.8); Lymphocytes % (A) 8 %; MCH 31.4 pg (25.0-35.0); MCHC 35.1 g/dL (31.0-37.0); MCV 89.5 fL (80.0-100.0); Mean Platelet Volume 9.1; Monocytes # (A) 0.4 k/uL (0-1.0); Monocytes % (A) 6 %; Neutrophils # (A) 5.9 k/uL (1.3-7.7); Neutrophils % (A) 83 %; Platelet Count 113 k/uL (150-450); RBC 3.85 m/uL (4.30-5.90); RDW 12.6 % (11.5-15.5); WBC 7.2 k/uL (3.8-10.6)
[2022-11-09 15:43] LABS: ALT 50 U/L (4-49); AST 82 U/L (17-59); African American GFR (CKD) 70 (>60 ml/min/1.73 sqM); Albumin 4.2 g/dL (3.5-5.0); Alkaline Phosphatase 39 U/L (38-126); Anion Gap 18 mmol/L; Blood Urea Nitrogen 21 mg/dL (9-20); Calcium 7.8 mg/dL (8.4-10.2); Carbon Dioxide 19 mmol/L (22-30); Chloride 92 mmol/L (98-107); Glucose 329 mg/dL (74-99); Non-African American GFR(CKD) 61 (>60 ml/min/1.73 sqM); Sodium 129 mmol/L (137-145); Total Protein 7.7 g/dL (6.3-8.2)
[2022-11-09 16:11] LABS: INR 1.1 (<1.2); Partial Thromboplastin Time 24.1 sec (22.0-30.0); Prothrombin Time 11.4 sec (9.0-12.0)
--- NOTE | 2022-11-09 16:16 | XR ---
EXAMINATION TYPE: XR foot complete RT DATE OF EXAM: 11/09/2022 COMPARISON: 06/16/2021 HISTORY: 57-year-old male TECHNIQUE: 3 views FINDINGS: There appears to have been amputation of the third toe. Small bone fragments present here. This seems to be some subtle cortical loss at the head of the third metatarsal. Dorsal dislocation no ion at the second MCP joint. Forefoot soft tissue swelling. Large type II accessory navicular. IMPRESSION: 1. Interval amputation of the third toe. On the oblique view, there is possible subtle early erosion involving the metatarsal head. If there is an overlying ulcer, unable to exclude a contiguous osteomy elitis. 2. Dorsal dislocation at the second MTP joint.
[2022-11-09 16:23] LABS: Potassium 5.8 mmol/L (3.5-5.1)
[2022-11-09] MEDS ORDERED: NALOXONE 0.4 MG/ML 1 ML VIAL IV PRN (16:35)
[2022-11-09] MEDS ORDERED: ONDANSETRON 4 MG/2 ML VIAL IVP PRN (16:35)
[2022-11-09] MEDS: metFORMIN 500 MG TAB PO SCH (21:23)
[2022-11-09] MEDS: CEFEPIME 1 GM in SODIUM CHLORIDE 0.9% 50 ML IVPB SCH (21:23)
[2022-11-09] MEDS: FAMOTIDINE 20 MG TAB PO SCH (21:24)
[2022-11-09] MEDS: ACETAMINOPHEN TAB 325 MG TAB PO PRN (22:42)
[2022-11-10] MEDS: SODIUM CHLORIDE 0.9% 1,000 ML IV SCH ×4 (01:16→20:55)
[2022-11-10] MEDS: IBUPROFEN 400 MG TAB PO PRN ×3 (02:21→23:09)
[2022-11-10] MEDS: ACETAMINOPHEN TAB 325 MG TAB PO PRN (04:56)
[2022-11-10 06:21] LABS: Glucose,Whole Blood 304 mg/dL (70-110)
[2022-11-10] MEDS: PIOGLITAZONE 30 MG TAB PO SCH (08:55)
[2022-11-10] MEDS: CEFEPIME 1 GM in SODIUM CHLORIDE 0.9% 50 ML IVPB SCH (08:55)
[2022-11-10] MEDS: FAMOTIDINE 20 MG TAB PO SCH ×2 (08:56→20:52)
[2022-11-10] MEDS: metFORMIN 500 MG TAB PO SCH ×2 (08:56→20:52)
[2022-11-10 12:18] LABS: Glucose,Whole Blood 310 mg/dL (70-110)
[2022-11-10] MEDS: LOSARTAN 50 MG TAB PO SCH (12:22)
--- NOTE | 2022-11-10 16:42 | P.HPIM ---
History of Present Illness H&P Date: 11/09/22 Chief Complaint: Right foot wound/possible abscess 57-year-old male presenting to the emergency department with concerns with wound to the right foot. Patient does notice this couple days ago. Patient has had decreased appetite the past couple of days with increased blood sugar. Patient has had decreased appetite with limited oral intake. Patient has had nausea. No abdominal pain. No vomiting. No constipation or diarrhea. No fevers at home. Patient has neuropathy. Patient denies any foot pain. 11. He did review the WBC is 7.2, hemoglobin of 12.1 and platelet count of 113, sodium 129, potassium 5.8, BUN/creatinine of 21/1.32 and glucose of 329; lactic acid is elevated at 3.6 Patient is being admitted for IV antibiotics for wound infection and possibility of osteomyelitis Review of Systems REVIEW OF SYSTEMS: CONSTITUTIONAL: No fever, no malaise, no fatigue. HEENT: No recent visual problems or hearing problems. Denied any sore throat. CARDIOVASCULAR: No chest pain, orthopnea, PND, no palpitations, no syncope. PULMONARY: No shortness of breath, no cough, no hemoptysis. GASTROINTESTINAL: No diarrhea, no nausea, no vomiting, no abdominal pain. NEUROLOGICAL: No headaches, no weakness, no numbness. HEMATOLOGICAL: Denies any bleeding or petechiae. GENITOURINARY: Denies any burning micturition, frequency, or urgency. MUSCULOSKELETAL/RHEUMATOLOGICAL: Denies any joint pain, swelling, or any muscle pain. ENDOCRINE: Denies any polyuria or polydipsia. The rest of the 14-point review of systems is negative. Past Medical History Past Medical History: Diabetes Mellitus, GERD/Reflux, Hypertension Additional Past Medical History / Comment(s): osteomyelitis and pain left foot, stepped on kristen nail October 2018,hx neuropathy History of Any Multi-Drug Resistant Organisms: MRSA Date of last positivie culture/infection: march 2022 MDRO Source:: toe Past Surgical History: Tonsillectomy Additional Past Surgical History / Comment(s): endoscopy, middle toe rt foot removed ,lft 2nd toe tip removed Past Anesthesia/Blood Transfusion Reactions: No Reported Reaction Past Psychological History: No Psychological Hx Reported Smoking Status: Former smoker Past Alcohol Use History: None Reported Additional Past Alcohol Use History / Comment(s): STARTED SMOKING AT AROUND 21 SMOKED LESS 1/2PPD QUIT 1989 Past Drug Use History: None Reported - Past Family History Mother Family Medical History: Cancer Additional Family Medical History / Comment(s): breast cancer Father Family Medical History: Cancer Additional Family Medical History / Comment(s): lung cancer Sister(s) Family Medical History: Cancer Additional Family Medical History / Comment(s): lung cancer Medications and Allergies Home Medications Medication Instructions Recorded Confirmed Type Olmesartan [Benicar] 20 mg PO DAILY 02/17/15 11/09/22 History metFORMIN HCL [Glucophage] 1,250 mg PO BID 02/17/15 11/09/22 History Pioglitazone [Actos] 30 mg PO DAILY 11/09/22 11/09/22 History Allergies Allergy/AdvReac Type Severity Reaction Status Date / Time levofloxacin [From Levaquin] Allergy Swelling, Verified 11/09/22 16:40 RASH Penicillins Allergy Unknown Verified 11/09/22 16:40 Childhood Physical Exam Vitals: Vital Signs Temp Pulse Pulse Resp BP BP Pulse Ox 11/10/22 07:00 98.4 F 83 18 90/60 97 11/10/22 05:03 97.6 F 80 16 98/60 96 11/10/22 03:05 100.0 F H 92 96/58 95 11/10/22 02:00 102.0 F H 103 H 16 113/53 94 L 11/09/22 22:35 101.6 F H 120 H 18 122/75 100 11/09/22 22:12 99.4 F 98 20 108/64 97 11/09/22 17:58 100.3 F H 92 18 100/67 95 11/09/22 13:15 101.5 F H 113 H 18 128/72 98 Intake and Output 11/09/22 11/10/22 11/10/22 22:59 06:59 14:59 Intake Total 200 Balance 200 Intake: Oral 200 Other: # Voids 1 1 Weight 136.078 kg PHYSICAL EXAMINATION: GENERAL: The patient is alert and oriented x3, not in any acute distress. Well developed, well nourished. HEENT: Pupils are round and equally reacting to light. EOMI. No scleral icterus. No conjunctival pallor. Normocephalic, atraumatic. No pharyngeal erythema. No thyromegaly. CARDIOVASCULAR: S1 and S2 present. No murmurs, rubs, or gallops. PULMONARY: Chest is clear to auscultation, no wheezing or crackles. ABDOMEN: Soft, nontender, nondistended, normoactive bowel sounds. No palpable organomegaly. MUSCULOSKELETAL: No joint swelling or deformity. EXTREMITIES: No cyanosis, clubbing, or pedal edema. NEUROLOGICAL: Gross neurological examination did not reveal any focal deficits. SKIN: No rashes. Results CBC & Chem 7: 11/09/22 14:51 11/09/22 14:51 Labs: Abnormal Lab Results - Last 24 Hours (Table) 11/09/22 11/09/22 11/09/22 Range/Units 14:51 14:51 14:51 RBC 3.85 L (4.30-5.90) m/uL Hgb 12.1 L (13.0-17.5) gm/dL Hct 34.4 L (39.0-53.0) % Plt Count 113 L (150-450) k/uL Lymphocytes # 0.6 L (1.0-4.8) k/uL Sodium 129 L (137-145) mmol/L Potassium 5.8 H (3.5-5.1) mmol/L Chloride 92 L (98-107) mmol/L Carbon Dioxide 19 L (22-30) mmol/L BUN 21 H (9-20) mg/dL Creatinine 1.32 H (0.66-1.25) mg/dL Glucose 329 H (74-99) mg/dL POC Glucose (mg/dL) (70-110) mg/dL Plasma Lactic Acid Andrey 3.6 H* (0.7-2.0) mmol/L Calcium 7.8 L (8.4-10.2) mg/dL Total Bilirubin 2.0 H (0.2-1.3) mg/dL AST 82 H (17-59) U/L ALT 50 H (4-49) U/L C-Reactive Protein 33.0 H (<1.0) mg/dL 11/09/22 11/09/22 11/10/22 Range/Units 18:28 21:49 00:59 RBC (4.30-5.90) m/uL Hgb (13.0-17.5) gm/dL Hct (39.0-53.0) % Plt Count (150-450) k/uL Lymphocytes # (1.0-4.8) k/uL Sodium (137-145) mmol/L Potassium (3.5-5.1) mmol/L Chloride (98-107) mmol/L Carbon Dioxide (22-30) mmol/L BUN (9-20) mg/dL Creatinine (0.66-1.25) mg/dL Glucose (74-99) mg/dL POC Glucose (mg/dL) (70-110) mg/dL Plasma Lactic Acid Andrey 2.4 H* 4.2 H* 2.9 H* (0.7-2.0) mmol/L Calcium (8.4-10.2) mg/dL Total Bilirubin (0.2-1.3) mg/dL AST (17-59) U/L ALT (4-49) U/L C-Reactive Protein (<1.0) mg/dL 11/10/22 11/10/22 11/10/22 Range/Units 03:52 06:20 08:00 RBC (4.30-5.90) m/uL Hgb (13.0-17.5) gm/dL Hct (39.0-53.0) % Plt Count (150-450) k/uL Lymphocytes # (1.0-4.8) k/uL Sodium (137-145) mmol/L Potassium (3.5-5.1) mmol/L Chloride (98-107) mmol/L Carbon Dioxide (22-30) mmol/L BUN (9-20) mg/dL Creatinine (0.66-1.25) mg/dL Glucose (74-99) mg/dL POC Glucose (mg/dL) 304 H (70-110) mg/dL Plasma Lactic Acid Andrey 2.8 H* 2.3 H* (0.7-2.0) mmol/L Calcium (8.4-10.2) mg/dL Total Bilirubin (0.2-1.3) mg/dL AST (17-59) U/L ALT (4-49) U/L C-Reactive Protein (<1.0) mg/dL Thrombosis Risk Factor Assmnt - Choose All That Apply Any of the Below Risk Factors Present?: Yes Each Factor Represents 1 point: Age 41-60 years, Obesity (BMI >25), Sepsis (< 1month), Swollen legs (current) Other Risk Factors: No Other congenital or acquired thrombophilia - If yes, enter type in comment: No Thrombosis Risk Factor Assessment Total Risk Factor Score: 4 Thrombosis Risk Factor Assessment Level: Moderate Risk Assessment and Plan Assessment: 1. Diabetic foot ulcer left with possible osteomyelitis - Patient has been placed on IV antibiotics in form of cefepime 2 g - ID is consulted; local wound care - Monitor CBC, CRP and pro-calcitonin 2. Electrolyte imbalance; hyponatremia/hyperkalemia; likely related to acute renal injury - We will start patient on slow IV fluid hydration with normal saline at a rate of 75 mL an hour; monitor renal function and electrolytes; we will adjust fluids pending repeat electrolytes 3. Acute renal injury; IV fluids in form of normal saline at rate of 75 mL an hour; monitor strict ORION's, daily weights, renal function and electrolytes; avoid nephrotoxins and hypotension 4. Hyperglycemia without acidosis/diabetes mellitus; patient takes metformin 1250 mg twice a day, Actos 30 mg daily - We will plan to monitor Accu-Cheks every 3 hours is with insulin sliding scale 5. Hypertension; Cozaar 100 mg daily DVT prophylaxis; SCDs/subcu heparin CODE STATUS; full code
[2022-11-10 17:22] LABS: Glucose,Whole Blood 288 mg/dL (70-110)
--- NOTE | 2022-11-10 19:11 | XR ---
EXAMINATION TYPE: XR foot complete 3 views LT DATE OF EXAM: 11/10/2022 Comparison: 06/17/2019, 11/19/2018 Clinical History: 57-year-old male left second toe infection Findings: As compared to 11/19/2018, there has been fairly advanced progression in degenerative change across th e navicular cuneiform joints and intercuneiform joints. To lesser extent along the second and third T MT joints. There is new or progressed lateral deviation at the third MTP joint. Generalized soft tiss ue swelling. Partial flexion of the toes due to hammertoe deformities limits its evaluation. There ap pears to be some deformity to the distal phalanx of the second toe on the lateral view, possible subl uxation or dislocation. Coned and dedicated views after the other toes away and further ev aluate. Small plantar heel spur. No discrete lytic destruction seen. Impression: 1. As compared to 2019, there has been advanced progression of degenerative change throughout the mid foot with concurrent soft tissue swelling. Consider neuropathic arthropathy or other inflammatory ar thropathy. 2. Hammertoes with flexion of the digits limits their detailed assessment. On the lateral view, there appears to be deformity to the distal phalanx of the second toe possibly representing subluxation or dislocation at the DIP joint. Recommend dedicated coned in views if concern for osteomyelitis.
[2022-11-10 20:56] LABS: Glucose,Whole Blood 261 mg/dL (70-110)
--- NOTE | 2022-11-10 22:54 | P.CONS ---
History of Present Illness - Reason for Consult Consult date: 11/10/22 - History of Present Illness Patient is a 57-year-old male with a past medical his significant for diabetes mellitus patient did have history of diabetic foot infection requiring amputation of the right second toe patient presenting to the ER yesterday afternoon with concern for decreased appetite recent blood sugar not feeling well did have some nausea but no vomiting and concerning for wound on the right foot plantar aspect and infection patient did have diabetic neuropathy denies significant pain to the right foot area patient on presentation to the hospital did have a fever of 101.5 F patient was tachycardic did have elevated lactic acid white count was normal though kidney mildly elevated, liver enzymes mildly elevated, patient did have a x-ray of the right foot interval amputation of the third toe on the right side possible early erosion involving the metatarsal head unable to exclude osteomyelitis patient did have blood cultures drawn significantly positive with MSSA patient has been treated with the vancomycin and cefepime infectious disease was consulted for further management of antibi otic therapy Past Medical History Past Medical History: Diabetes Mellitus, GERD/Reflux, Hypertension Additional Past Medical History / Comment(s): osteomyelitis and pain left foot, stepped on kristen nail October 2018,hx neuropathy History of Any Multi-Drug Resistant Organisms: MRSA Year Discovered:: march 2022 MDRO Source:: toe Past Surgical History: Tonsillectomy Additional Past Surgical History / Comment(s): endoscopy, middle toe rt foot removed ,lft 2nd toe tip removed Past Anesthesia/Blood Transfusion Reactions: No Reported Reaction Past Psychological History: No Psychological Hx Reported Smoking Status: Former smoker Past Alcohol Use History: None Reported Additional Past Alcohol Use History / Comment(s): STARTED SMOKING AT AROUND 21 SMOKED LESS 1/2PPD QUIT 1989 Past Drug Use History: None Reported - Past Family History Mother Family Medical History: Cancer Additional Family Medical History / Comment(s): breast cancer Father Family Medical History: Cancer Additional Family Medical History / Comment(s): lung cancer Sister(s) Family Medical History: Cancer Additional Family Medical History / Comment(s): lung cancer Medications and Allergies Home Medications Medication Instructions Recorded Confirmed Type Olmesartan [Benicar] 20 mg PO DAILY 02/17/15 11/09/22 History metFORMIN HCL [Glucophage] 1,250 mg PO BID 02/17/15 11/09/22 History Pioglitazone [Actos] 30 mg PO DAILY 11/09/22 11/09/22 History Allergies Allergy/AdvReac Type Severity Reaction Status Date / Time levofloxacin [From Levaquin] Allergy Swelling, Verified 11/09/22 16:40 RASH Penicillins Allergy Unknown Verified 11/09/22 16:40 Childhood Physical Exam Vitals: Vital Signs Temp Pulse Pulse Resp BP BP Pulse Ox 11/10/22 11:50 97.7 F 78 18 96/61 98 11/10/22 07:00 98.4 F 83 18 90/60 97 11/10/22 05:03 97.6 F 80 16 98/60 96 11/10/22 03:05 100.0 F H 92 96/58 95 11/10/22 02:00 102.0 F H 103 H 16 113/53 94 L 11/09/22 22:35 101.6 F H 120 H 18 122/75 100 11/09/22 22:12 99.4 F 98 20 108/64 97 11/09/22 17:58 100.3 F H 92 18 100/67 95 Intake and Output 11/09/22 11/10/22 11/10/22 22:59 06:59 14:59 Intake Total 200 Balance 200 Intake: Oral 200 Other: # Voids 1 1 Weight 136.078 kg Results CBC & Chem 7: 11/09/22 14:51 11/09/22 14:51 Labs: Abnormal Lab Results - Last 24 Hours (Table) 11/09/22 11/09/22 11/09/22 Range/Units 14:51 14:51 14:51 RBC 3.85 L (4.30-5.90) m/uL Hgb 12.1 L (13.0-17.5) gm/dL Hct 34.4 L (39.0-53.0) % Plt Count 113 L (150-450) k/uL Lymphocytes # 0.6 L (1.0-4.8) k/uL Sodium 129 L (137-145) mmol/L Potassium 5.8 H (3.5-5.1) mmol/L Chloride 92 L (98-107) mmol/L Carbon Dioxide 19 L (22-30) mmol/L BUN 21 H (9-20) mg/dL Creatinine 1.32 H (0.66-1.25) mg/dL Glucose 329 H (74-99) mg/dL POC Glucose (mg/dL) (70-110) mg/dL Plasma Lactic Acid Andrey 3.6 H* (0.7-2.0) mmol/L Calcium 7.8 L (8.4-10.2) mg/dL Total Bilirubin 2.0 H (0.2-1.3) mg/dL AST 82 H (17-59) U/L ALT 50 H (4-49) U/L C-Reactive Protein 33.0 H (<1.0) mg/dL 11/09/22 11/09/22 11/10/22 Range/Units 18:28 21:49 00:59 RBC (4.30-5.90) m/uL Hgb (13.0-17.5) gm/dL Hct (39.0-53.0) % Plt Count (150-450) k/uL Lymphocytes # (1.0-4.8) k/uL Sodium (137-145) mmol/L Potassium (3.5-5.1) mmol/L Chloride (98-107) mmol/L Carbon Dioxide (22-30) mmol/L BUN (9-20) mg/dL Creatinine (0.66-1.25) mg/dL Glucose (74-99) mg/dL POC Glucose (mg/dL) (70-110) mg/dL Plasma Lactic Acid Andrey 2.4 H* 4.2 H* 2.9 H* (0.7-2.0) mmol/L Calcium (8.4-10.2) mg/dL Total Bilirubin (0.2-1.3) mg/dL AST (17-59) U/L ALT (4-49) U/L C-Reactive Protein (<1.0) mg/dL 11/10/22 11/10/22 11/10/22 Range/Units 03:52 06:20 08:00 RBC (4.30-5.90) m/uL Hgb (13.0-17.5) gm/dL Hct (39.0-53.0) % Plt Count (150-450) k/uL Lymphocytes # (1.0-4.8) k/uL Sodium (137-145) mmol/L Potassium (3.5-5.1) mmol/L Chloride (98-107) mmol/L Carbon Dioxide (22-30) mmol/L BUN (9-20) mg/dL Creatinine (0.66-1.25) mg/dL Glucose (74-99) mg/dL POC Glucose (mg/dL) 304 H (70-110) mg/dL Plasma Lactic Acid Andrey 2.8 H* 2.3 H* (0.7-2.0) mmol/L Calcium (8.4-10.2) mg/dL Total Bilirubin (0.2-1.3) mg/dL AST (17-59) U/L ALT (4-49) U/L C-Reactive Protein (<1.0) mg/dL 11/10/22 11/10/22 Range/Units 11:02 12:17 RBC (4.30-5.90) m/uL Hgb (13.0-17.5) gm/dL Hct (39.0-53.0) % Plt Count (150-450) k/uL Lymphocytes # (1.0-4.8) k/uL Sodium (137-145) mmol/L Potassium (3.5-5.1) mmol/L Chloride (98-107) mmol/L Carbon Dioxide (22-30) mmol/L BUN (9-20) mg/dL Creatinine (0.66-1.25) mg/dL Glucose (74-99) mg/dL POC Glucose (mg/dL) 310 H (70-110) mg/dL Plasma Lactic Acid Andrey 3.0 H* (0.7-2.0) mmol/L Calcium (8.4-10.2) mg/dL Total Bilirubin (0.2-1.3) mg/dL AST (17-59) U/L ALT (4-49) U/L C-Reactive Protein (<1.0) mg/dL Microbiology - Last 24 Hours (Table) 11/09/22 15:00 Blood Culture Gram Stain - Preliminary Blood Assessment and Plan Plan: 1patient was in the hospital with sepsis in this patient did have fever tachycardia elevated lactic acid source and likely right diabetic foot wound infection and evidence of MSSA bacteremia source is likely diabetic foot infection as the patient has some superficial ulceration on the plantar aspect of the right foot and a bony erosion on the right third metatarsal head 2-patient with a penicillin and Levaquin allergy that will be the number of antibiotics safe to use 3-mild renal insufficiency and high risk of nephrotoxicity 4-discontinue vancomycin and cefepime 5-patient did have elevated liver enzymes but no abdominal pain vomiting or tenderness 6-we will start the patient cefazolin 7-we will obtain x-rays of the left foot as well as bone scan to rule out osteomyelitis and check ultrasound of the abdominal in view of the elevated liver enzymes as well as elevated kidney function 8-local wound care with a dry Aquacel dressing change every 48 hour We will follow on clinical condition and cultures to further adjust medication if needed Thank you for this consultation we will follow the patient along with you Time with Patient: Greater than 30
[2022-11-11] MEDS: ACETAMINOPHEN TAB 325 MG TAB PO PRN ×3 (01:34→20:22)
[2022-11-11] MEDS: SODIUM CHLORIDE 0.9% 1,000 ML IV SCH ×3 (05:02→21:35)
[2022-11-11 06:43] LABS: HCT 29.6 % (39.0-53.0); MCH 31.4 pg (25.0-35.0); MCHC 33.5 g/dL (31.0-37.0); MCV 93.8 fL (80.0-100.0); Mean Platelet Volume 9.7; RBC 3.15 m/uL (4.30-5.90); RDW 13.1 % (11.5-15.5); WBC 4.5 k/uL (3.8-10.6)
[2022-11-11 06:45] LABS: HGB 9.9 gm/dL (13.0-17.5)
[2022-11-11 06:57] LABS: Band Neutrophils % 11 %; Eosinophils # (M) 0.05 k/uL (0-0.7); Lymphocytes # (M) 0.59 k/uL (1.0-4.8); Monocytes # (M) 0.27 k/uL (0-1.0); Neutrophils % (M) 69 %; Nucleated Red Blood Cells 0 /100 WBC (0-0); Total Cells Counted 100
[2022-11-11 06:58] LABS: Platelet Count 91 k/uL (150-450)
[2022-11-11 07:01] LABS: ALT 51 U/L (4-49); AST 67 U/L (17-59); African American GFR (CKD) 67 (>60 ml/min/1.73 sqM); Albumin 2.6 g/dL (3.5-5.0); Alkaline Phosphatase 54 U/L (38-126); Anion Gap 10 mmol/L; Blood Urea Nitrogen 35 mg/dL (9-20); Calcium 6.7 mg/dL (8.4-10.2); Carbon Dioxide 20 mmol/L (22-30); Chloride 102 mmol/L (98-107); Globulin 2.7 g/dL; Glucose 196 mg/dL (74-99); Non-African American GFR(CKD) 58 (>60 ml/min/1.73 sqM); Potassium 3.5 mmol/L (3.5-5.1); Sodium 132 mmol/L (137-145); Total Bilirubin 0.6 mg/dL (0.2-1.3); Total Protein 5.3 g/dL (6.3-8.2)
[2022-11-11 07:14] LABS: C Reactive Protein 26.5 mg/dL (<1.0)
[2022-11-11 07:40] LABS: Glucose,Whole Blood 207 mg/dL (70-110)
--- NOTE | 2022-11-11 08:02 | US ---
EXAMINATION TYPE: US abdomen complete DATE OF EXAM: 11/11/2022 COMPARISON: NONE CLINICAL INDICATION: Male, 57 years old with history of elevated LFT and renal insufficiency; abn lab s, no symptoms, diabetic TECHNIQUE: Multiple sonographic images of the abdomen are obtained. FINDINGS: EXAM MEASUREMENTS: Liver Length: 18.9 cm Gallbladder Wall: 0.3 cm CBD: 0.5 cm Spleen: 17.8 cm Right Kidney: 13.7 x 5.2 x 5.9 cm Left Kidney: 13.7 x 5.1 x 7.2 cm [employer] NOTES: large habitus Pancreas: wnl Liver: 1.3cm hypoechoic area seen posterior right lobe, enlarged and difficult to penetrate Gallbladder: wnl Evidence for sonographic Wright's sign: no CBD: wnl Spleen: enlarged Right Kidney: enlarged Left Kidney: enlarged Upper IVC: wnl Abd Aorta: wnl The intrahepatic portion of the IVC and proximal abdominal aorta are within normal limits. There is no evidence of cholelithiasis. Common bile duct is unremarkable. The visualized portions of the power creas are homogenous. Kidneys are symmetric and free of hydronephrosis. No renal lesions are seen. IMPRESSION: 1. Hepatic steatosis. Correlate with liver function testing. Hypoechoic hepatic lesion could reflect an area of focal fatty sparing. Lesion of other etiology not excluded and this could be further evalu ated with CT. 2. Splenomegaly
[2022-11-11] MEDS: PIOGLITAZONE 30 MG TAB PO SCH (08:37)
[2022-11-11] MEDS: FAMOTIDINE 20 MG TAB PO SCH ×2 (08:38→20:22)
[2022-11-11] MEDS: metFORMIN 500 MG TAB PO SCH (08:38)
[2022-11-11] MEDS: LOSARTAN 50 MG TAB PO SCH (08:38)
[2022-11-11 11:35] LABS: Hepatitis A Antibody IgM Nonreactive; Hepatitis B Core IgM Nonreactive; Hepatitis B Surface Antigen Nonreactive; Hepatitis C IgG Antibody Nonreactive
[2022-11-11 12:32] LABS: Glucose,Whole Blood 230 mg/dL (70-110)
[2022-11-11] MEDS: INSULIN ASPART (NovoLOG) 100 UNIT/ML VIAL SQ SCH ×4 (12:45→21:34)
--- NOTE | 2022-11-11 13:50 | NM ---
EXAMINATION TYPE: NM bone 3 phase DATE OF EXAM: 11/11/2022 COMPARISON: NONE CLINICAL INDICATION: Male, 57 years old with history of abnormal xray , bacteremia, osteomyelitis; Triple phase bone scintigraphy was performed following the injection of 26.3 mCi Tc 99m MDP. Immedia te images and 6 hours post injection images acquired. FINDINGS: On All 3 phases of the study there is increased radiotracer accumulation noted to involve t he left midfoot. The findings are nonspecific and could reflect neuropathic arthropathy however under lying osteomyelitis is not excluded. On the delayed images there is increased radiotracer accumulatio n noted to involve the second right toe which is also nonspecific and could be degenerative in nature versus posttraumatic. IMPRESSION: 1. I cannot exclude osteomyelitis involving the left midfoot additional considerations neuropathic ar thropathy.
[2022-11-11] MEDS ORDERED: DEXTROSE 50% SYRINGE 50 ML IVP PRN ×2 (14:32)
--- NOTE | 2022-11-11 14:35 | P.PN ---
Subjective Progress Note Date: 11/11/22 This is a 57 year old male admitted with a diabetic foot ulcer on the right foot pad, foot xray shows concern for osteomyelitis and patient scheduled to undergo a bone scan today. Continues on IV cefazolin and ID is following the patient. Sodium improving with normal saline which is decreased to 100 mls/hr, losartan has been discontinued as blood pressures have been running low/normal. Patient is having 9/10 pain to the right foot and requested additional pain medication. Inflammatory markers are elevated. Review of Systems Constitutional: Denied any fatigue denied any fever. Cardio vascular: denied any chest pain, palpitations Gastrointestinal: denied any nausea, vomiting, diarrhea Pulmonary: Denied any shortness of breath cough Neurologic denied any new focal deficits All inpatient medications were reviewed and appropriate changes in these medications as dictated in the interval history and assessment and plan. PHYSICAL EXAMINATION: GENERAL: The patient is alert and oriented x3, not in any acute distress. Well developed, well nourished. HEENT: Pupils are round and equally reacting to light. EOMI. No scleral icterus. No conjunctival pallor. Normocephalic, atraumatic. No pharyngeal erythema. No thyromegaly. CARDIOVASCULAR: S1 and S2 present. No murmurs, rubs, or gallops. PULMONARY: Chest is clear to auscultation, no wheezing or crackles. ABDOMEN: Soft, nontender, nondistended, normoactive bowel sounds. No palpable organomegaly. MUSCULOSKELETAL: No joint swelling or deformity. EXTREMITIES: No cyanosis, clubbing, or pedal edema. NEUROLOGICAL: Gross neurological examination did not reveal any focal deficits. SKIN: No rashes. Assessment Right foot diabetic ulcer and sepsis /osteomyelitis Bacteremia preliminary culture showing presumptive staph aureus Mild acute kidney injury secondary to sepsis Hyponatremia hypovolemic Hepatic steatosis with elevated LFT's, hepatitis panel negative Lactic acidosis from sepsis and likely worsened by metformin use Diabetes Mellitus type 2 with hyperglycemia GERD Hx of hypertension Former Smoker GI prophylaxis DVT prophylaxis Full Code Plan Continue IV antibiotics, infectious disease on board and following cultures Outline area of erythema bilateral feet Patient to undergo bone scan today Losartan has been discontinued, IV fluids decreased to 100mls/hr Stop metformin and continue novolog s/s and small dose of levemir has been added Pain management The impression and plan of care has been dictated by Mervat Harris, Nurse Practitioner as directed. Dr. Nessa MD I have performed a history and physical examination and medical decision making of this patient, discussed the same with the dictator, and agree with the dictators assessment and plan as written, documented as a scribe. Based on total visit time, I have performed more than 50% of this visit. Objective - Vital Signs Vital signs: Vital Signs Temp 98.5 F 11/11/22 07:00 Pulse 75 11/11/22 07:00 Resp 20 11/11/22 07:00 BP 101/61 11/11/22 07:00 Pulse Ox 98 11/11/22 07:00 FiO2 Intake & Output 11/10/22 11/11/22 11/11/22 18:59 06:59 18:59 Intake Total 318 Output Total 4 Balance 318 -4 Intake: Oral 318 Output: Urine 4 Other: # Voids 1 # Bowel Movements 1 - Labs CBC & Chem 7: 11/11/22 06:19 11/11/22 06:19 Labs: Abnormal Lab Results - Last 24 Hours (Table) 11/10/22 11/10/22 11/10/22 Range/Units 11:02 12:17 14:03 RBC (4.30-5.90) m/uL Hgb (13.0-17.5) gm/dL Hct (39.0-53.0) % Plt Count (150-450) k/uL Lymphocytes # (Manual) (1.0-4.8) k/uL Sodium (137-145) mmol/L Carbon Dioxide (22-30) mmol/L BUN (9-20) mg/dL Creatinine (0.66-1.25) mg/dL Glucose (74-99) mg/dL POC Glucose (mg/dL) 310 H (70-110) mg/dL Plasma Lactic Acid Andrey 3.0 H* 2.7 H* (0.7-2.0) mmol/L Calcium (8.4-10.2) mg/dL AST (17-59) U/L ALT (4-49) U/L C-Reactive Protein (<1.0) mg/dL Total Protein (6.3-8.2) g/dL Albumin (3.5-5.0) g/dL 11/10/22 11/10/22 11/11/22 Range/Units 17:20 20:52 06:19 RBC (4.30-5.90) m/uL Hgb (13.0-17.5) gm/dL Hct (39.0-53.0) % Plt Count (150-450) k/uL Lymphocytes # (Manual) (1.0-4.8) k/uL Sodium 132 L (137-145) mmol/L Carbon Dioxide 20 L (22-30) mmol/L BUN 35 H (9-20) mg/dL Creatinine 1.36 H (0.66-1.25) mg/dL Glucose 196 H (74-99) mg/dL POC Glucose (mg/dL) 288 H 261 H (70-110) mg/dL Plasma Lactic Acid Andrey (0.7-2.0) mmol/L Calcium 6.7 L (8.4-10.2) mg/dL AST 67 H (17-59) U/L ALT 51 H (4-49) U/L C-Reactive Protein 26.5 H (<1.0) mg/dL Total Protein 5.3 L (6.3-8.2) g/dL Albumin 2.6 L (3.5-5.0) g/dL 11/11/22 11/11/22 Range/Units 06:19 07:38 RBC 3.15 L (4.30-5.90) m/uL Hgb 9.9 L D (13.0-17.5) gm/dL Hct 29.6 L (39.0-53.0) % Plt Count 91 L (150-450) k/uL Lymphocytes # (Manual) 0.59 L (1.0-4.8) k/uL Sodium (137-145) mmol/L Carbon Dioxide (22-30) mmol/L BUN (9-20) mg/dL Creatinine (0.66-1.25) mg/dL Glucose (74-99) mg/dL POC Glucose (mg/dL) 207 H (70-110) mg/dL Plasma Lactic Acid Andrey (0.7-2.0) mmol/L Calcium (8.4-10.2) mg/dL AST (17-59) U/L ALT (4-49) U/L C-Reactive Protein (<1.0) mg/dL Total Protein (6.3-8.2) g/dL Albumin (3.5-5.0) g/dL Microbiology - Last 24 Hours (Table) 11/09/22 15:05 Blood Culture Gram Stain - Preliminary Blood Blood Culture - Preliminary Presumptive Staph aureus 11/09/22 15:00 Blood Culture Gram Stain - Preliminary Blood Assessment and Plan Time with Patient: Less than 30
[2022-11-11] MEDS: traMADol 50 MG TAB PO PRN ×2 (16:12→23:35)
[2022-11-11] MEDS: KETOROLAC 15 MG/ML 1 ML VIAL IVP PRN (16:50)
[2022-11-11 17:26] LABS: Glucose,Whole Blood 248 mg/dL (70-110)
[2022-11-11] MEDS ORDERED: INSULIN DETEMIR (LEVEMIR) 100 UNIT/ML SYR SQ SCH (21:00)
[2022-11-11 21:31] LABS: Glucose,Whole Blood 223 mg/dL (70-110)
--- NOTE | 2022-11-11 22:05 | P.PN ---
Subjective Progress Note Date: 11/11/22 Principal diagnosis: Diabetic foot infection Patient is a 57-year-old male with a past medically significant for diabetes mellitus history of diabetic foot infection requiring amputation of the toe presenting to the hospital with weakness not feeling well patient was no ticed to be febrile and did have evidence of MSSA bacteremia concern for possible diabetic foot infection. On today's evaluation that is 11/11/2022 patient overall feels better and has improved and the patient is afebrile this morning is breathing comfortably on room air no chest pain shortness of breath or cough no abdominal pain has been complaining of more swelling redness on the dorsal aspect of the right foot Objective - Vital Signs Vital signs: Vital Signs Temp 98.5 F 11/11/22 07:00 Pulse 75 11/11/22 07:00 Resp 20 11/11/22 07:00 BP 101/61 11/11/22 07:00 Pulse Ox 98 11/11/22 07:00 FiO2 Intake & Output 11/10/22 11/11/22 11/11/22 18:59 06:59 18:59 Intake Total 318 Output Total 4 Balance 318 -4 Intake: Oral 318 Output: Urine 4 Other: # Voids 1 # Bowel Movements 1 - Exam GENERAL DESCRIPTION: Middle-age male lying in bed in no distress RESPIRATORY SYSTEM: Unlabored breathing , decreased breath sounds at bases HEART: S1 S2 regular rate and rhythm ,no loud murmurs ABDOMEN: Soft , no tenderness EXTREMITIES: Right foot dorsum did have erythema no drainage was noticed - Labs CBC & Chem 7: 11/11/22 06:19 11/11/22 06:19 Labs: Abnormal Lab Results - Last 24 Hours (Table) 11/10/22 11/10/22 11/10/22 Range/Units 11:02 12:17 14:03 RBC (4.30-5.90) m/uL Hgb (13.0-17.5) gm/dL Hct (39.0-53.0) % Plt Count (150-450) k/uL Lymphocytes # (Manual) (1.0-4.8) k/uL Sodium (137-145) mmol/L Carbon Dioxide (22-30) mmol/L BUN (9-20) mg/dL Creatinine (0.66-1.25) mg/dL Glucose (74-99) mg/dL POC Glucose (mg/dL) 310 H (70-110) mg/dL Plasma Lactic Acid Andrey 3.0 H* 2.7 H* (0.7-2.0) mmol/L Calcium (8.4-10.2) mg/dL AST (17-59) U/L ALT (4-49) U/L C-Reactive Protein (<1.0) mg/dL Total Protein (6.3-8.2) g/dL Albumin (3.5-5.0) g/dL 11/10/22 11/10/22 11/11/22 Range/Units 17:20 20:52 06:19 RBC (4.30-5.90) m/uL Hgb (13.0-17.5) gm/dL Hct (39.0-53.0) % Plt Count (150-450) k/uL Lymphocytes # (Manual) (1.0-4.8) k/uL Sodium 132 L (137-145) mmol/L Carbon Dioxide 20 L (22-30) mmol/L BUN 35 H (9-20) mg/dL Creatinine 1.36 H (0.66-1.25) mg/dL Glucose 196 H (74-99) mg/dL POC Glucose (mg/dL) 288 H 261 H (70-110) mg/dL Plasma Lactic Acid Andrey (0.7-2.0) mmol/L Calcium 6.7 L (8.4-10.2) mg/dL AST 67 H (17-59) U/L ALT 51 H (4-49) U/L C-Reactive Protein 26.5 H (<1.0) mg/dL Total Protein 5.3 L (6.3-8.2) g/dL Albumin 2.6 L (3.5-5.0) g/dL 11/11/22 11/11/22 Range/Units 06:19 07:38 RBC 3.15 L (4.30-5.90) m/uL Hgb 9.9 L D (13.0-17.5) gm/dL Hct 29.6 L (39.0-53.0) % Plt Count 91 L (150-450) k/uL Lymphocytes # (Manual) 0.59 L (1.0-4.8) k/uL Sodium (137-145) mmol/L Carbon Dioxide (22-30) mmol/L BUN (9-20) mg/dL Creatinine (0.66-1.25) mg/dL Glucose (74-99) mg/dL POC Glucose (mg/dL) 207 H (70-110) mg/dL Plasma Lactic Acid Andrey (0.7-2.0) mmol/L Calcium (8.4-10.2) mg/dL AST (17-59) U/L ALT (4-49) U/L C-Reactive Protein (<1.0) mg/dL Total Protein (6.3-8.2) g/dL Albumin (3.5-5.0) g/dL Microbiology - Last 24 Hours (Table) 11/09/22 15:05 Blood Culture Gram Stain - Preliminary Blood Blood Culture - Preliminary Presumptive Staph aureus 11/09/22 15:00 Blood Culture Gram Stain - Preliminary Blood Assessment and Plan (1) Diabetic foot ulcer Current Visit: Yes Status: Acute Code(s): E11.621 - TYPE 2 DIABETES MELLITUS WITH FOOT ULCER; L97.509 - NON-PRESSURE CHRONIC ULCER OTH PRT UNSP FOOT W UNSP SEVERITY SNOMED Code(s): 502019120 (2) Cellulitis of right foot Current Visit: No Status: Acute Priority: Medium Code(s): L03.115 - CELLULITIS OF RIGHT LOWER LIMB SNOMED Code(s): 165177412 (3) MSSA bacteremia Current Visit: No Status: Acute Code(s): R78.81 - BACTEREMIA; B95.61 - METHICILLIN SUSCEP STAPH INFCT CAUSING DIS CLASSD ELSWHR SNOMED Code(s): 121137267 Plan: 1patient was in the hospital with sepsis in this patient did have fever tachycardia elevated lactic acid source and likely right diabetic foot wound infection and evidence of MSSA bacteremia source is likely diabetic foot infection as the patient has some superficial ulceration on the plantar aspect of the right foot and a bony erosion on the right third metatarsal head 2-patient with a penicillin and Levaquin allergy that will be the number of antibiotics safe to use 3-mild renal insufficiency and high risk of nephrotoxicity 4-patient did have elevated liver enzymes but no abdominal pain vomiting or tenderness , US did show hepatic steatosis 5- patient to continue with cefazolin , await bone scan and repeat cultures to be finalized Time with Patient: Less than 30
[2022-11-12] MEDS: KETOROLAC 15 MG/ML 1 ML VIAL IVP PRN ×2 (00:20→23:46)
[2022-11-12] MEDS: ACETAMINOPHEN TAB 325 MG TAB PO PRN ×2 (02:15→10:15)
[2022-11-12 05:48] LABS: Glucose,Whole Blood 171 mg/dL (70-110)
[2022-11-12] MEDS: INSULIN ASPART (NovoLOG) 100 UNIT/ML VIAL SQ SCH ×7 (06:23→20:59)
[2022-11-12 06:40] LABS: Basophils % (A) 0 %; Eosinophils # (A) 0.1 k/uL (0-0.7); Eosinophils % (A) 2 %; HCT 28.8 % (39.0-53.0); HGB 9.6 gm/dL (13.0-17.5); Lymphocytes # (A) 1.1 k/uL (1.0-4.8); Lymphocytes % (A) 21 %; MCHC 33.4 g/dL (31.0-37.0); MCV 92.7 fL (80.0-100.0); Mean Platelet Volume 8.9; Monocytes # (A) 0.2 k/uL (0-1.0); Monocytes % (A) 5 %; Neutrophils # (A) 3.4 k/uL (1.3-7.7); Neutrophils % (A) 68 %; Platelet Count 113 k/uL (150-450); RBC 3.11 m/uL (4.30-5.90); RDW 13.3 % (11.5-15.5)
[2022-11-12] MEDS: FAMOTIDINE 20 MG TAB PO SCH ×2 (07:59→20:01)
[2022-11-12] MEDS: PIOGLITAZONE 30 MG TAB PO SCH (07:59)
[2022-11-12] MEDS: SODIUM CHLORIDE 0.9% 1,000 ML IV SCH ×2 (10:16→16:49)
[2022-11-12 10:21] LABS: ALT 51 U/L (4-49); AST 73 U/L (17-59); African American GFR (CKD) >90 (>60 ml/min/1.73 sqM); Albumin 2.5 g/dL (3.5-5.0); Albumin/Globulin Ratio 0.9; Alkaline Phosphatase 70 U/L (38-126); Anion Gap 7 mmol/L; Blood Urea Nitrogen 19 mg/dL (9-20); Calcium 6.9 mg/dL (8.4-10.2); Carbon Dioxide 23 mmol/L (22-30); Chloride 104 mmol/L (98-107); Globulin 2.8 g/dL; Glucose 199 mg/dL (74-99); Non-African American GFR(CKD) 84 (>60 ml/min/1.73 sqM); Potassium 3.5 mmol/L (3.5-5.1); Sodium 134 mmol/L (137-145); Total Bilirubin 0.5 mg/dL (0.2-1.3); Total Protein 5.3 g/dL (6.3-8.2)
[2022-11-12 12:19] LABS: Glucose,Whole Blood 216 mg/dL (70-110)
--- NOTE | 2022-11-12 15:13 | P.PN ---
Subjective Progress Note Date: 11/12/22 This is a 57 year old male admitted with a diabetic foot ulcer on the right foot pad, foot xray shows concern for osteomyelitis and patient scheduled to undergo a bone scan today. Continues on IV cefazolin and ID is following the patient. Sodium improving with normal saline which is decreased to 100 mls/hr, losartan has been discontinued as blood pressures have been running low/normal. Patient is having 9/10 pain to the right foot and requested additional pain medication. Inflammatory markers are elevated. 11/12/2022 Patient is evaluated today resting in bed, Continues to report pain to the left foot. Underwent bone scan which cannot exclude osteomyelitis involving the left midfoot additional considerations include neuropathic arthropathy. Blood culture prelim showing presumptive staph aureus and repeat is pending and showing gram positive cocci in clusters. Patient continues on IV cefazolin. CT of the left foot has been ordered. T-Max overnight 101.2. Continues with mild elevated LFTs. Review of Systems Constitutional: Denied any fatigue denied any fever. Cardio vascular: denied any chest pain, palpitations Gastrointestinal: denied any nausea, vomiting, diarrhea Pulmonary: Denied any shortness of breath cough Neurologic denied any new focal deficits All inpatient medications were reviewed and appropriate changes in these medications as dictated in the interval history and assessment and plan. PHYSICAL EXAMINATION: GENERAL: The patient is alert and oriented x3, not in any acute distress. Well developed, well nourished. HEENT: Pupils are round and equally reacting to light. EOMI. No scleral icterus. No conjunctival pallor. Normocephalic, atraumatic. No pharyngeal erythema. No thyromegaly. CARDIOVASCULAR: S1 and S2 present. No murmurs, rubs, or gallops. PULMONARY: Chest is clear to auscultation, no wheezing or crackles. ABDOMEN: Soft, nontender, nondistended, normoactive bowel sounds. No palpable organomegaly. MUSCULOSKELETAL: No joint swelling or deformity. EXTREMITIES: No cyanosis, clubbing, or pedal edema. NEUROLOGICAL: Gross neurological examination did not reveal any focal deficits. SKIN: No rashes. Swelling and redness foot pad of the right foot. No drainage. Assessment Right foot diabetic ulcer and sepsis /osteomyelitis Bacteremia preliminary culture showing presumptive staph aureus Mild acute kidney injury secondary to sepsis Hyponatremia hypovolemic Hepatic steatosis with elevated LFT's, hepatitis panel negative Lactic acidosis from sepsis and likely worsened by metformin use Diabetes Mellitus type 2 with hyperglycemia GERD Hx of hypertension Former Smoker GI prophylaxis DVT prophylaxis Full Code Plan Continue IV antibiotics, infectious disease on board and following cultures Outline area of erythema bilateral feet CT of the left foot ordered Lactic acid normalized and patient to continue off metformin. Pain management The impression and plan of care has been dictated by Mervat Harris, Nurse Practitioner as directed. Dr. Nessa MD I have performed a history and physical examination and medical decision making of this patient, discussed the same with the dictator, and agree with the dictators assessment and plan as written, documented as a scribe. Based on total visit time, I have performed more than 50% of this visit. Objective - Vital Signs Vital signs: Vital Signs Temp 98.4 F 11/12/22 14:00 Pulse 80 11/12/22 14:00 Resp 16 11/12/22 14:00 BP 138/77 11/12/22 14:00 Pulse Ox 97 11/12/22 14:00 FiO2 Intake & Output 11/11/22 11/12/22 11/12/22 18:59 06:59 18:59 Intake Total 480 Balance 480 Intake: Oral 480 Other: # Voids 2 2 - Labs CBC & Chem 7: 11/12/22 05:52 11/12/22 09:50 Labs: Abnormal Lab Results - Last 24 Hours (Table) 11/11/22 11/11/22 11/12/22 Range/Units 17:19 21:29 05:46 RBC (4.30-5.90) m/uL Hgb (13.0-17.5) gm/dL Hct (39.0-53.0) % Plt Count (150-450) k/uL Sodium (137-145) mmol/L Glucose (74-99) mg/dL POC Glucose (mg/dL) 248 H 223 H 171 H (70-110) mg/dL Hemoglobin A1c (<=6.0) % Calcium (8.4-10.2) mg/dL AST (17-59) U/L ALT (4-49) U/L Total Protein (6.3-8.2) g/dL Albumin (3.5-5.0) g/dL 11/12/22 11/12/22 11/12/22 Range/Units 05:52 05:52 09:50 RBC 3.11 L (4.30-5.90) m/uL Hgb 9.6 L (13.0-17.5) gm/dL Hct 28.8 L (39.0-53.0) % Plt Count 113 L (150-450) k/uL Sodium 134 L (137-145) mmol/L Glucose 199 H (74-99) mg/dL POC Glucose (mg/dL) (70-110) mg/dL Hemoglobin A1c 7.8 H (<=6.0) % Calcium 6.9 L (8.4-10.2) mg/dL AST 73 H (17-59) U/L ALT 51 H (4-49) U/L Total Protein 5.3 L (6.3-8.2) g/dL Albumin 2.5 L (3.5-5.0) g/dL 11/12/22 Range/Units 12:17 RBC (4.30-5.90) m/uL Hgb (13.0-17.5) gm/dL Hct (39.0-53.0) % Plt Count (150-450) k/uL Sodium (137-145) mmol/L Glucose (74-99) mg/dL POC Glucose (mg/dL) 216 H (70-110) mg/dL Hemoglobin A1c (<=6.0) % Calcium (8.4-10.2) mg/dL AST (17-59) U/L ALT (4-49) U/L Total Protein (6.3-8.2) g/dL Albumin (3.5-5.0) g/dL Microbiology - Last 24 Hours (Table) 11/11/22 06:19 Blood Culture Gram Stain - Preliminary Blood Assessment and Plan Time with Patient: Less than 30
--- NOTE | 2022-11-12 16:26 | CT ---
EXAMINATION TYPE: CT foot LT wo con DATE OF EXAM: 11/12/2022 COMPARISON: Radiograph 11/10/2022 HISTORY: 57-year-old male with pain, abscess TECHNIQUE: CT of the left foot without contrast. Coronal and sagittal reconstructions performed. 3-D reconstructions generated on a dedicated independent workstation. CT DLP: 285.1 mGycm Automated exposure control for dose reduction was used. FINDINGS: Advanced degenerative change along with fragmentation and subluxation and extensive articular irregul arity throughout the midfoot. Confluent dorsal soft tissue swelling by swelling also diffusely throug hout the remainder of the foot. Generalized muscular atrophy throughout. There is soft tissue fullness along the dorsal lateral midfoot. He seems to be centered along the ten dons of the extensor digitorum longus with measurement of 5.3 cm long and 4.1 cm wide and 2.2 cm thic k. Underlying tenosynovitis should be considered. Hammertoes are noted. Some deformity to the distal phalanx of the second toe, possible old healed fra cture deformity given angulation at the level of the phalangeal base. Mild degenerative change first MTP joint. At the ankle, confluent soft tissue swelling laterally. IMPRESSION: 1. ADVANCED MID FOOT DEGENERATIVE CHANGE WITH BONY FRAGMENTATION, IRREGULARITY, SUBLUXATIONS, AND SWE LLING. CORRELATE FOR POTENTIAL UNDERLYING NEUROPATHIC ARTHROPATHY. 2. FOCAL SOFT TISSUE FULLNESS ALONG THE DORSOLATERAL MIDFOOT MEASURING 5.3 X 4.1 X 2.2 CM. THIS SEEMS TO BE CENTERED ALONG THE TENDONS OF THE EXTENSOR DIGITORUM LONGUS. CONSIDER ULTRASOUND TO ASSESS FOR POTENTIAL TENOSYNOVITIS. 3. MARKED DORSAL SOFT TISSUE SWELLING AND LATERALLY AT THE ANKLE. HAMMERTOES. SUSPECT OLD HEALED FRAC TURE DEFORMITY SECOND TOE DISTAL PHALANX.
[2022-11-12 17:38] LABS: Glucose,Whole Blood 213 mg/dL (70-110)
[2022-11-12 20:24] LABS: Glucose,Whole Blood 219 mg/dL (70-110)
--- NOTE | 2022-11-12 22:32 | P.PN ---
Subjective Progress Note Date: 11/12/22 Principal diagnosis: Diabetic foot infection Patient is a 57-year-old male with a past medically significant for diabetes mellitus history of diabetic foot infection requiring amputation of the toe presenting to the hospital with weakness not feeling well patient was no ticed to be febrile and did have evidence of MSSA bacteremia concern for possible diabetic foot infection. On today's evaluation that is 11/12/2022 patient did spike another fever of 102F around 2 AM this morning, the patient is breathing comfortably on room air chest pain or shortness of breath or cough no nausea no vomiting no abdominal pain still having the swelling redness on the dorsum aspect of the left foot Objective - Vital Signs Vital signs: Vital Signs Temp 98.4 F 11/12/22 14:00 Pulse 80 11/12/22 14:00 Resp 16 11/12/22 14:00 BP 138/77 11/12/22 14:00 Pulse Ox 97 11/12/22 14:00 FiO2 Intake & Output 11/11/22 11/12/22 11/12/22 18:59 06:59 18:59 Intake Total 480 Balance 480 Intake: Oral 480 Other: # Voids 2 2 - Exam GENERAL DESCRIPTION: Middle-age male lying in bed in no distress RESPIRATORY SYSTEM: Unlabored breathing , decreased breath sounds at bases HEART: S1 S2 regular rate and rhythm ,no loud murmurs ABDOMEN: Soft , no tenderness EXTREMITIES: Right foot dorsum did have erythema no drainage was noticed - Labs CBC & Chem 7: 11/12/22 05:52 11/12/22 09:50 Labs: Abnormal Lab Results - Last 24 Hours (Table) 11/11/22 11/11/22 11/12/22 Range/Units 17:19 21:29 05:46 RBC (4.30-5.90) m/uL Hgb (13.0-17.5) gm/dL Hct (39.0-53.0) % Plt Count (150-450) k/uL Sodium (137-145) mmol/L Glucose (74-99) mg/dL POC Glucose (mg/dL) 248 H 223 H 171 H (70-110) mg/dL Hemoglobin A1c (<=6.0) % Calcium (8.4-10.2) mg/dL AST (17-59) U/L ALT (4-49) U/L Total Protein (6.3-8.2) g/dL Albumin (3.5-5.0) g/dL 11/12/22 11/12/22 11/12/22 Range/Units 05:52 05:52 09:50 RBC 3.11 L (4.30-5.90) m/uL Hgb 9.6 L (13.0-17.5) gm/dL Hct 28.8 L (39.0-53.0) % Plt Count 113 L (150-450) k/uL Sodium 134 L (137-145) mmol/L Glucose 199 H (74-99) mg/dL POC Glucose (mg/dL) (70-110) mg/dL Hemoglobin A1c 7.8 H (<=6.0) % Calcium 6.9 L (8.4-10.2) mg/dL AST 73 H (17-59) U/L ALT 51 H (4-49) U/L Total Protein 5.3 L (6.3-8.2) g/dL Albumin 2.5 L (3.5-5.0) g/dL 11/12/22 Range/Units 12:17 RBC (4.30-5.90) m/uL Hgb (13.0-17.5) gm/dL Hct (39.0-53.0) % Plt Count (150-450) k/uL Sodium (137-145) mmol/L Glucose (74-99) mg/dL POC Glucose (mg/dL) 216 H (70-110) mg/dL Hemoglobin A1c (<=6.0) % Calcium (8.4-10.2) mg/dL AST (17-59) U/L ALT (4-49) U/L Total Protein (6.3-8.2) g/dL Albumin (3.5-5.0) g/dL Microbiology - Last 24 Hours (Table) 11/11/22 06:19 Blood Culture Gram Stain - Preliminary Blood Assessment and Plan (1) Diabetic foot ulcer Current Visit: Yes Status: Acute Code(s): E11.621 - TYPE 2 DIABETES MELLITUS WITH FOOT ULCER; L97.509 - NON-PRESSURE CHRONIC ULCER OTH PRT UNSP FOOT W UNSP SEVERITY SNOMED Code(s): 764249903 (2) Cellulitis of right foot Current Visit: No Status: Acute Priority: Medium Code(s): L03.115 - CELLULITIS OF RIGHT LOWER LIMB SNOMED Code(s): 761801284 (3) MSSA bacteremia Current Visit: No Status: Acute Code(s): R78.81 - BACTEREMIA; B95.61 - METHICILLIN SUSCEP STAPH INFCT CAUSING DIS CLASSD ELSWHR SNOMED Code(s): 032197026 Plan: 1patient was in the hospital with sepsis in this patient did have fever tachycardia elevated lactic acid source and likely right diabetic foot wound infection and evidence of MSSA bacteremia source is likely diabetic foot infection as the patient has some superficial ulceration on the plantar aspect of the right foot and a bony erosion on the right third metatarsal head 2-patient with a penicillin and Levaquin allergy that will be the number of antibiotics safe to use 3-mild renal insufficiency and high risk of nephrotoxicity 4-patient did have elevated liver enzymes but no abdominal pain vomiting or tenderness , US did show hepatic steatosis 5- patient noticed to have worsening redness on the dorsal aspect of the left foot and continued to have a fever we will obtain CT of the left foot to make sure that evidence of any abscess that may need to be drained continue with the cefazolin family has multiple questions were answered in Layman terms
[2022-11-12] MEDS: traMADol 50 MG TAB PO PRN (22:53)
[2022-11-12] MEDS: INSULIN DETEMIR (LEVEMIR) 100 UNIT/ML SYR SQ SCH (22:58)
[2022-11-13 06:32] LABS: Glucose,Whole Blood 190 mg/dL (70-110)
[2022-11-13] MEDS: INSULIN ASPART (NovoLOG) 100 UNIT/ML VIAL SQ SCH ×7 (06:40→20:55)
[2022-11-13] MEDS: PIOGLITAZONE 30 MG TAB PO SCH (08:13)
[2022-11-13] MEDS: FAMOTIDINE 20 MG TAB PO SCH ×2 (08:13→19:51)
[2022-11-13 11:59] LABS: Glucose,Whole Blood 240 mg/dL (70-110)
[2022-11-13] MEDS: SODIUM CHLORIDE 0.9% 1,000 ML IV SCH (12:28)
[2022-11-13 14:21] VITALS: BMI 33.7
--- NOTE | 2022-11-13 14:52 | P.PN ---
Subjective Progress Note Date: 11/13/22 Principal diagnosis: Diabetic foot infection Patient is a 57-year-old male with a past medically significant for diabetes mellitus history of diabetic foot infection requiring amputation of the toe presenting to the hospital with weakness not feeling well patient was no ticed to be febrile and did have evidence of MSSA bacteremia concern for possible diabetic foot infection. On today's evaluation that is 11/13/2022 patient did have a low-grade fever of 99.9F this morning, the patient is breathing comfortably on room air chest pain or shortness of breath or cough no nausea no vomiting no abdominal pain, the patient continued to have significant swelling on the dorsum aspect of the left foot has been complaining of some pain to the left calf area Objective - Vital Signs Vital signs: Vital Signs Temp 99.7 F H 11/13/22 07:36 Pulse 67 11/13/22 07:36 Resp 14 11/13/22 07:36 BP 129/73 11/13/22 07:36 Pulse Ox 98 11/13/22 07:36 FiO2 Intake & Output 11/12/22 11/13/22 11/13/22 18:59 06:59 18:59 Intake Total 480 Balance 480 Intake: Oral 480 Other: # Voids 2 - Exam GENERAL DESCRIPTION: Middle-age male lying in bed in no distress RESPIRATORY SYSTEM: Unlabored breathing , decreased breath sounds at bases HEART: S1 S2 regular rate and rhythm ,no loud murmurs ABDOMEN: Soft , no tenderness EXTREMITIES: Right foot dorsum did have erythema no drainage was noticed - Labs CBC & Chem 7: 11/12/22 05:52 11/12/22 09:50 Labs: Abnormal Lab Results - Last 24 Hours (Table) 11/12/22 11/12/22 11/12/22 Range/Units 05:52 12:17 17:35 POC Glucose (mg/dL) 216 H 213 H (70-110) mg/dL Hemoglobin A1c 7.8 H (<=6.0) % 11/12/22 11/13/22 Range/Units 20:23 06:30 POC Glucose (mg/dL) 219 H 190 H (70-110) mg/dL Hemoglobin A1c (<=6.0) % Microbiology - Last 24 Hours (Table) 11/09/22 15:05 Blood Culture Gram Stain - Final Blood Blood Culture - Final Staphylococcus aureus 11/11/22 06:19 Blood Culture Gram Stain - Preliminary Blood Assessment and Plan (1) Diabetic foot ulcer Current Visit: Yes Status: Acute Code(s): E11.621 - TYPE 2 DIABETES MELLITUS WITH FOOT ULCER; L97.509 - NON-PRESSURE CHRONIC ULCER OTH PRT UNSP FOOT W UNSP SEVERITY SNOMED Code(s): 225609318 (2) Cellulitis of right foot Current Visit: No Status: Acute Priority: Medium Code(s): L03.115 - CELLULITIS OF RIGHT LOWER LIMB SNOMED Code(s): 557629450 (3) MSSA bacteremia Current Visit: No Status: Acute Code(s): R78.81 - BACTEREMIA; B95.61 - METHICILLIN SUSCEP STAPH INFCT CAUSING DIS CLASSD ELSWHR SNOMED Code(s): 562062604 Plan: 1patient was in the hospital with sepsis in this patient did have fever tachycardia elevated lactic acid source and likely right diabetic foot wound infection and evidence of MSSA bacteremia source is likely diabetic foot infection as the patient has some superficial ulceration on the plantar aspect of the right foot and a bony erosion on the right third metatarsal head 2-patient with a penicillin and Levaquin allergy that will be the number of antibiotics safe to use 3-mild renal insufficiency and high risk of nephrotoxicity 4-patient did have elevated liver enzymes but no abdominal pain vomiting or tenderness , US did show hepatic steatosis 5- patient noticed to have worsening redness on the dorsal aspect of the left foot and continued to have a fever we will obtain CT of the left foot today shows evidence of tenosynovitis but no drainable abscess podiatry has been consulted 6 patient to continue with cefazolin will add clindamycin in view of the worsening cellulitis and discussed with the patient
--- NOTE | 2022-11-13 16:23 | P.PN ---
Subjective Progress Note Date: 11/13/22 This is a 57 year old male admitted with a diabetic foot ulcer on the right foot pad, foot xray shows concern for osteomyelitis and patient scheduled to undergo a bone scan today. Continues on IV cefazolin and ID is following the patient. Sodium improving with normal saline which is decreased to 100 mls/hr, losartan has been discontinued as blood pressures have been running low/normal. Patient is having 9/10 pain to the right foot and requested additional pain medication. Inflammatory markers are elevated. 11/12/2022 Patient is evaluated today resting in bed, Continues to report pain to the left foot. Underwent bone scan which cannot exclude osteomyelitis involving the left midfoot additional considerations include neuropathic arthropathy. Blood culture prelim showing presumptive staph aureus and repeat is pending and showing gram positive cocci in clusters. Patient continues on IV cefazolin. CT of the left foot has been ordered. T-Max overnight 101.2. Continues with mild elevated LFTs. 11/13/2022 Patient evaluated resting in bed. Left foot is more swollen with area of erythema progressing beyond the border moving into the ankle and mostly along the lateral border of the left foot. There is some superficial blistering appearing on the top of the foot as well. Patient reports increased pain with movement of the foot. Repeat blood cultures showing staph aureus from the and were repeated yesterday as well. Dr Daniel requested to evaluate the patient. Continues on IV cefazolin and IV clindamycin has been added today. Temp 99-7 today. Review of Systems Constitutional: Denied any fatigue denied any fever. Cardio vascular: denied any chest pain, palpitations Gastrointestinal: denied any nausea, vomiting, diarrhea Pulmonary: Denied any shortness of breath cough Neurologic denied any new focal deficits All inpatient medications were reviewed and appropriate changes in these medications as dictated in the interval history and assessment and plan. PHYSICAL EXAMINATION: GENERAL: The patient is alert and oriented x3, not in any acute distress. Well developed, well nourished. HEENT: Pupils are round and equally reacting to light. EOMI. No scleral icterus. No conjunctival pallor. Normocephalic, atraumatic. No pharyngeal erythema. No thyromegaly. CARDIOVASCULAR: S1 and S2 present. No murmurs, rubs, or gallops. PULMONARY: Chest is clear to auscultation, no wheezing or crackles. ABDOMEN: Soft, nontender, nondistended, normoactive bowel sounds. No palpable organomegaly. MUSCULOSKELETAL: No joint swelling or deformity. EXTREMITIES: No cyanosis, clubbing, or pedal edema. NEUROLOGICAL: Gross neurological examination did not reveal any focal deficits. SKIN: No rashes. Swelling and redness foot pad of the right foot. No drainage. The left foot has increased redness swelling along the lateral aspect and has moved outside of the outline superficial blistering on the top of the foot. Assessment Right foot diabetic ulcer and sepsis /osteomyelitis Bacteremia staph aureus Worsening swelling and erythema to the left foot worsening and foot CT shows possible tenosynovitis Mild acute kidney injury secondary to sepsis Hyponatremia hypovolemic Hepatic steatosis with elevated LFT's, hepatitis panel negative Lactic acidosis from sepsis and likely worsened by metformin use Diabetes Mellitus type 2 with hyperglycemia GERD Hx of hypertension Former Smoker GI prophylaxis DVT prophylaxis Full Code Plan Continue IV antibiotics, infectious disease on board and following cultures Dr Daniel consulted for further evaluation of the left foot. Lactic acid normalized and patient to continue off metformin. Pain management The impression and plan of care has been dictated by Mervat Harris, Nurse Practitioner as directed. Dr. Nessa MD I have performed a history and physical examination and medical decision making of this patient, discussed the same with the dictator, and agree with the dictators assessment and plan as written, documented as a scribe. Based on total visit time, I have performed more than 50% of this visit. Objective - Vital Signs Vital signs: Vital Signs Temp 99.3 F 11/13/22 13:33 Pulse 74 11/13/22 13:33 Resp 16 11/13/22 13:33 BP 134/75 11/13/22 13:33 Pulse Ox 100 11/13/22 13:33 FiO2 Intake & Output 11/12/22 11/13/22 11/13/22 18:59 06:59 18:59 Intake Total 480 Balance 480 Weight 136.078 kg Intake: Oral 480 Other: # Voids 2 1 # Bowel Movements 1 - Labs CBC & Chem 7: 11/12/22 05:52 11/12/22 09:50 Labs: Abnormal Lab Results - Last 24 Hours (Table) 11/12/22 11/12/22 11/13/22 Range/Units 17:35 20:23 06:30 POC Glucose (mg/dL) 213 H 219 H 190 H (70-110) mg/dL 11/13/22 Range/Units 11:58 POC Glucose (mg/dL) 240 H (70-110) mg/dL Microbiology - Last 24 Hours (Table) 11/11/22 06:19 Blood Culture Gram Stain - Preliminary Blood Blood Culture - Preliminary Presumptive Staph aureus 11/09/22 15:05 Blood Culture Gram Stain - Final Blood Blood Culture - Final Staphylococcus aureus Assessment and Plan Time with Patient: Less than 30
[2022-11-13] MEDS: CLINDAMYCIN 900 MG in DEXTROSE 5% IN WATER 50 ML IVPB SCH ×4 (16:39→23:56)
[2022-11-13 17:16] LABS: Glucose,Whole Blood 197 mg/dL (70-110)
[2022-11-13] MEDS: traMADol 50 MG TAB PO PRN (19:50)
[2022-11-13 20:19] LABS: Glucose,Whole Blood 313 mg/dL (70-110)
[2022-11-13] MEDS: KETOROLAC 15 MG/ML 1 ML VIAL IVP PRN (20:55)
[2022-11-13] MEDS: INSULIN DETEMIR (LEVEMIR) 100 UNIT/ML SYR SQ SCH (20:55)
[2022-11-14 06:17] LABS: Glucose,Whole Blood 147 mg/dL (70-110)
[2022-11-14] MEDS: INSULIN ASPART (NovoLOG) 100 UNIT/ML VIAL SQ SCH ×7 (06:24→21:25)
[2022-11-14 06:37] LABS: African American GFR (CKD) >90 (>60 ml/min/1.73 sqM); Anion Gap 8 mmol/L; Blood Urea Nitrogen 14 mg/dL (9-20); Calcium 7.2 mg/dL (8.4-10.2); Carbon Dioxide 20 mmol/L (22-30); Chloride 107 mmol/L (98-107); Glucose 140 mg/dL (74-99); Non-African American GFR(CKD) >90 (>60 ml/min/1.73 sqM); Potassium 3.4 mmol/L (3.5-5.1); Sodium 135 mmol/L (137-145)
[2022-11-14] MEDS: FAMOTIDINE 20 MG TAB PO SCH ×2 (08:29→21:24)
[2022-11-14] MEDS: CLINDAMYCIN 900 MG in DEXTROSE 5% IN WATER 50 ML IVPB SCH ×4 (08:30→17:46)
[2022-11-14] MEDS: PIOGLITAZONE 30 MG TAB PO SCH (08:36)
[2022-11-14] MEDS: SODIUM CHLORIDE 0.9% 1,000 ML IV SCH (08:37)
--- NOTE | 2022-11-14 08:48 | P.GSHP ---
History of Present Illness H&P Date: 11/14/22 Chief Complaint: Infection left foot with cellulitis 57-year-old patient seen for consultation of infection diabetic of the left foot. Patient presented to the emergency room after being lethargic for 48 hours prior. He was found to be septic and was placed in the hospital for further treatment. Patient states that when they presented to the hospital the left foot had no areas of redness however by the next day there were 2 areas that were read swollen. This area has extended now extends across the entire dorsum of the left foot. Patient has been on IV antibiotics and being managed medically as well as with infectious disease by IV antibiotics. Past Medical History Past Medical History: Diabetes Mellitus, GERD/Reflux, Hypertension Additional Past Medical History / Comment(s): osteomyelitis and pain left foot, stepped on kristen nail October 2018,hx neuropathy History of Any Multi-Drug Resistant Organisms: MRSA Date of last positivie culture/infection: march 2022 MDRO Source:: toe Past Surgical History: Tonsillectomy Additional Past Surgical History / Comment(s): endoscopy, middle toe rt foot removed ,lft 2nd toe tip removed Past Anesthesia/Blood Transfusion Reactions: No Reported Reaction Past Psychological History: No Psychological Hx Reported Smoking Status: Former smoker Past Alcohol Use History: None Reported Additional Past Alcohol Use History / Comment(s): STARTED SMOKING AT AROUND 21 SMOKED LESS 1/2PPD QUIT 1989 Past Drug Use History: None Reported - Past Family History Mother Family Medical History: Cancer Additional Family Medical History / Comment(s): breast cancer Father Family Medical History: Cancer Additional Family Medical History / Comment(s): lung cancer Sister(s) Family Medical History: Cancer Additional Family Medical History / Comment(s): lung cancer Medications and Allergies Home Medications Medication Instructions Recorded Confirmed Type Olmesartan [Benicar] 20 mg PO DAILY 02/17/15 11/09/22 History metFORMIN HCL [Glucophage] 1,250 mg PO BID 02/17/15 11/09/22 History Pioglitazone [Actos] 30 mg PO DAILY 11/09/22 11/09/22 History Allergies Allergy/AdvReac Type Severity Reaction Status Date / Time levofloxacin [From Levaquin] Allergy Swelling, Verified 11/09/22 16:40 RASH Penicillins Allergy Unknown Verified 11/09/22 16:40 Childhood Surgical - Exam Vital Signs Temp Pulse Resp BP Pulse Ox 101.5 F H 113 H 18 128/72 98 11/09/22 13:15 11/09/22 13:15 11/09/22 13:15 11/09/22 13:15 11/09/22 13:15 - Cardiovascular Pedal pulses are palpable bilateral extremities are warm - Integumentary Full-thickness ulceration l right hallux. There is localized erythema edema increased temperature over the dorsal aspect of the left foot without any lesions ulcerations noted. - Neurologic Patient has lack of protective sensation with diabetic neuropathy bilateral - Musculoskeletal Range of motion ankle joint subtalar joint and midtarsal joint grossly normal symmetric bilateral without pain or crepitus all inverters everters plantar flexors dorsiflexors grossly normal symmetric bilateral juvenile amputations right foot review of graphics studies show possible neuropathic arthropathy of the left foot no erosive changes were seen that would suggest osteomyelitis Results - Labs 11/12/22 05:52 11/14/22 05:41 Abnormal Lab Results - Last 24 Hours (Table) 11/13/22 11/13/22 11/13/22 Range/Units 11:58 17:14 20:18 Sodium (137-145) mmol/L Potassium (3.5-5.1) mmol/L Carbon Dioxide (22-30) mmol/L Glucose (74-99) mg/dL POC Glucose (mg/dL) 240 H 197 H 313 H (70-110) mg/dL Calcium (8.4-10.2) mg/dL 11/14/22 11/14/22 Range/Units 05:41 06:16 Sodium 135 L (137-145) mmol/L Potassium 3.4 L (3.5-5.1) mmol/L Carbon Dioxide 20 L (22-30) mmol/L Glucose 140 H (74-99) mg/dL POC Glucose (mg/dL) 147 H (70-110) mg/dL Calcium 7.2 L (8.4-10.2) mg/dL Microbiology - Last 24 Hours (Table) 11/11/22 06:19 Blood Culture Gram Stain - Preliminary Blood Blood Culture - Preliminary Presumptive Staph aureus Diabetes panel 11/14/22 Range/Units 05:41 Sodium 135 L (137-145) mmol/L Potassium 3.4 L (3.5-5.1) mmol/L Chloride 107 (98-107) mmol/L Carbon Dioxide 20 L (22-30) mmol/L BUN 14 (9-20) mg/dL Creatinine 0.95 (0.66-1.25) mg/dL Glucose 140 H (74-99) mg/dL Calcium 7.2 L (8.4-10.2) mg/dL Calcium panel 11/14/22 Range/Units 05:41 Calcium 7.2 L (8.4-10.2) mg/dL Pituitary panel 11/14/22 Range/Units 05:41 Sodium 135 L (137-145) mmol/L Potassium 3.4 L (3.5-5.1) mmol/L Chloride 107 (98-107) mmol/L Carbon Dioxide 20 L (22-30) mmol/L BUN 14 (9-20) mg/dL Creatinine 0.95 (0.66-1.25) mg/dL Glucose 140 H (74-99) mg/dL Calcium 7.2 L (8.4-10.2) mg/dL Adrenal panel 11/14/22 Range/Units 05:41 Sodium 135 L (137-145) mmol/L Potassium 3.4 L (3.5-5.1) mmol/L Chloride 107 (98-107) mmol/L Carbon Dioxide 20 L (22-30) mmol/L BUN 14 (9-20) mg/dL Creatinine 0.95 (0.66-1.25) mg/dL Glucose 140 H (74-99) mg/dL Calcium 7.2 L (8.4-10.2) mg/dL Assessment and Plan Assessment: Cellulitis left foot with underlying neuropathic arthropathy Plan: Exam discussed with patient findings and treatment plan. At this time I believe patient has neuropathic arthropathy as well as disease soft tissue cellulitis of the left foot. Possibly a incision and drainage with culture may be helpful in identifying if there is any pathogen as well as susceptibility to any antibiotics. We'll discuss this with the medical and infectious disease service thank you for this consult Time with Patient: Greater than 30
[2022-11-14] MEDS ORDERED: POTASSIUM CHLORIDE ER 20 MEQ TAB.ER PO STA (09:34)
[2022-11-14 12:42] LABS: Glucose,Whole Blood 228 mg/dL (70-110)
--- NOTE | 2022-11-14 14:00 | P.PN ---
Subjective Progress Note Date: 11/14/22 This is a 57 year old male admitted with a diabetic foot ulcer on the right foot pad, foot xray shows concern for osteomyelitis and patient scheduled to undergo a bone scan today. Continues on IV cefazolin and ID is following the patient. Sodium improving with normal saline which is decreased to 100 mls/hr, losartan has been discontinued as blood pressures have been running low/normal. Patient is having 9/10 pain to the right foot and requested additional pain medication. Inflammatory markers are elevated. 11/12/2022 Patient is evaluated today resting in bed, Continues to report pain to the left foot. Underwent bone scan which cannot exclude osteomyelitis involving the left midfoot additional considerations include neuropathic arthropathy. Blood culture prelim showing presumptive staph aureus and repeat is pending and showing gram positive cocci in clusters. Patient continues on IV cefazolin. CT of the left foot has been ordered. T-Max overnight 101.2. Continues with mild elevated LFTs. 11/13/2022 Patient evaluated resting in bed. Left foot is more swollen with area of erythema progressing beyond the border moving into the ankle and mostly along the lateral border of the left foot. There is some superficial blistering appearing on the top of the foot as well. Patient reports increased pain with movement of the foot. Repeat blood cultures showing staph aureus from the and were repeated yesterday as well. Dr Daniel requested to evaluate the patient. Continues on IV cefazolin and IV clindamycin has been added today. Temp 99-7 today. 11/14/2022 Patient resting in bed family at bedside. Left foot is swollen with erythema. María had evaluated the patient and felt patient likely has neuropathic arthropathy and considering I and D with culture with concern for disease soft t issue cellulitis of the left foot. The foot has been wrapped with JOHAN bandage and will be elevated. Follow up blood cultures are so far negative. Continues on cefazolin and clindamycin with microsensitivities. Sodium 135, potassium 3.4, BUN 14, creatinine 0.95. Blood glucose 228, calcium 7.2. Patient remains afebrile, heart rate 68, blood pressure 132/71, 98% room air . Review of Systems Constitutional: Denied any fatigue denied any fever. Cardio vascular: denied any chest pain, palpitations Gastrointestinal: denied any nausea, vomiting, diarrhea Pulmonary: Denied any shortness of breath cough Neurologic: Denied any new focal deficits All inpatient medications were reviewed and appropriate changes in these medications as dictated in the interval history and assessment and plan. PHYSICAL EXAMINATION: GENERAL: The patient is alert and oriented x3, not in any acute distress. Well developed, well nourished. HEENT: Pupils are round and equally reacting to light. EOMI. No scleral icterus. No conjunctival pallor. Normocephalic, atraumatic. No pharyngeal erythema. No thyromegaly. CARDIOVASCULAR: S1 and S2 present. No murmurs, rubs, or gallops. PULMONARY: Chest is clear to auscultation, no wheezing or crackles. ABDOMEN: Soft, nontender, nondistended, normoactive bowel sounds. No palpable organomegaly. MUSCULOSKELETAL: No joint swelling or deformity. EXTREMITIES: No cyanosis, clubbing, or pedal edema. NEUROLOGICAL: Gross neurological examination did not reveal any focal deficits. SKIN: No rashes. Swelling and redness foot pad of the right foot. No drainage. The left foot has increased redness swelling along the lateral aspect and has moved outside of the outline superficial blistering on the top of the foot. Assessment Right foot diabetic ulcer and sepsis /osteomyelitis Bacteremia staph aureus Worsening swelling and erythema to the left foot worsening and foot CT shows possible tenosynovitis /neuropathic arthropathy Mild acute kidney injury secondary to sepsis Hyponatremia hypovolemic improved. Hepatic steatosis with elevated LFT's, hepatitis panel negative Lactic acidosis from sepsis and likely worsened by metformin use normalized. Diabetes Mellitus type 2 with hyperglycemia GERD Hx of hypertension Former Smoker GI prophylaxis DVT prophylaxis Full Code Plan Continue IV antibiotics, infectious disease on board and following cultures Dr Daniel consulted for further evaluation of the left foot possible I and D. Left foot has been JOHAN wrapped and recommending elevation and ice Lactic acid normalized and patient to continue off metformin. Pain management in place. Patient will be started on lyrica for the neuropathic pain The impression and plan of care has been dictated by Mervat Harris Nurse Practitioner as directed. Dr. Nessa MD I have performed a history and physical examination and medical decision making of this patient, discussed the same with the dictator, and agree with the dictators assessment and plan as written, documented as a scribe. Based on total visit time, I have performed more than 50% of this visit. Objective - Vital Signs Vital signs: Vital Signs Temp 98.9 F 06/15/23 13:25 Pulse 68 11/14/22 07:24 Resp 18 11/14/22 07:24 BP 132/71 11/14/22 07:24 Pulse Ox 98 11/14/22 08:15 FiO2 Intake & Output 11/13/22 11/14/22 11/14/22 18:59 06:59 18:59 Intake Total 474 474 Balance 474 474 Weight 136.078 kg Intake: Oral 474 474 Other: # Voids 1 2 # Bowel Movements 1 - Labs CBC & Chem 7: 11/12/22 05:52 11/14/22 05:41 Labs: Abnormal Lab Results - Last 24 Hours (Table) 11/13/22 11/13/22 11/14/22 Range/Units 17:14 20:18 05:41 Sodium 135 L (137-145) mmol/L Potassium 3.4 L (3.5-5.1) mmol/L Carbon Dioxide 20 L (22-30) mmol/L Glucose 140 H (74-99) mg/dL POC Glucose (mg/dL) 197 H 313 H (70-110) mg/dL Calcium 7.2 L (8.4-10.2) mg/dL 11/14/22 11/14/22 Range/Units 06:16 12:40 Sodium (137-145) mmol/L Potassium (3.5-5.1) mmol/L Carbon Dioxide (22-30) mmol/L Glucose (74-99) mg/dL POC Glucose (mg/dL) 147 H 228 H (70-110) mg/dL Calcium (8.4-10.2) mg/dL Microbiology - Last 24 Hours (Table) 11/12/22 17:23 Blood Culture - Preliminary Blood 11/11/22 06:19 Blood Culture Gram Stain - Preliminary Blood Blood Culture - Preliminary Presumptive Staph aureus Assessment and Plan Time with Patient: Less than 30
[2022-11-14] MEDS: ACETAMINOPHEN TAB 325 MG TAB PO PRN ×2 (14:06→21:25)
[2022-11-14] MEDS: PREGABALIN 100 MG CAP PO SCH ×2 (15:48→21:24)
[2022-11-14] MEDS: IBUPROFEN 400 MG TAB PO PRN (15:48)
--- NOTE | 2022-11-14 15:59 | P.PN ---
Subjective Progress Note Date: 11/14/22 Principal diagnosis: Diabetic foot infection Patient is a 57-year-old male with a past medically significant for diabetes mellitus history of diabetic foot infection requiring amputation of the toe presenting to the hospital with weakness not feeling well patient was no ticed to be febrile and did have evidence of MSSA bacteremia concern for possible diabetic foot infection. On today's evaluation that is 11/14/2022 patient is afebrile this morning, the patient is breathing comfortably on room air chest pain or shortness of breath or cough no nausea no vomiting no abdominal pain, the patient continued to have significant swelling on the dorsum aspect of the left foot, has been evaluated by podiatry recommended I&D this afternoon Objective - Vital Signs Vital signs: Vital Signs Temp 99.2 F 11/14/22 07:24 Pulse 68 11/14/22 07:24 Resp 18 11/14/22 07:24 BP 132/71 11/14/22 07:24 Pulse Ox 98 11/14/22 08:15 FiO2 Intake & Output 11/13/22 11/14/22 11/14/22 18:59 06:59 18:59 Intake Total 474 474 Balance 474 474 Weight 136.078 kg Intake: Oral 474 474 Other: # Voids 1 2 # Bowel Movements 1 - Exam GENERAL DESCRIPTION: Middle-age male lying in bed in no distress RESPIRATORY SYSTEM: Unlabored breathing , decreased breath sounds at bases HEART: S1 S2 regular rate and rhythm ,no loud murmurs ABDOMEN: Soft , no tenderness EXTREMITIES: Right foot dorsum did have erythema no drainage was noticed - Labs CBC & Chem 7: 11/12/22 05:52 11/14/22 05:41 Labs: Abnormal Lab Results - Last 24 Hours (Table) 11/13/22 11/13/22 11/14/22 Range/Units 17:14 20:18 05:41 Sodium 135 L (137-145) mmol/L Potassium 3.4 L (3.5-5.1) mmol/L Carbon Dioxide 20 L (22-30) mmol/L Glucose 140 H (74-99) mg/dL POC Glucose (mg/dL) 197 H 313 H (70-110) mg/dL Calcium 7.2 L (8.4-10.2) mg/dL 11/14/22 11/14/22 Range/Units 06:16 12:40 Sodium (137-145) mmol/L Potassium (3.5-5.1) mmol/L Carbon Dioxide (22-30) mmol/L Glucose (74-99) mg/dL POC Glucose (mg/dL) 147 H 228 H (70-110) mg/dL Calcium (8.4-10.2) mg/dL Microbiology - Last 24 Hours (Table) 11/12/22 17:23 Blood Culture - Preliminary Blood 11/11/22 06:19 Blood Culture Gram Stain - Preliminary Blood Blood Culture - Preliminary Presumptive Staph aureus Assessment and Plan (1) Diabetic foot ulcer Current Visit: Yes Status: Acute Code(s): E11.621 - TYPE 2 DIABETES MELLITUS WITH FOOT ULCER; L97.509 - NON-PRESSURE CHRONIC ULCER OTH PRT UNSP FOOT W UNSP SEVERITY SNOMED Code(s): 039325742 (2) Cellulitis of right foot Current Visit: No Status: Acute Priority: Medium Code(s): L03.115 - CELLULITIS OF RIGHT LOWER LIMB SNOMED Code(s): 077106133 (3) MSSA bacteremia Current Visit: No Status: Acute Code(s): R78.81 - BACTEREMIA; B95.61 - METHICILLIN SUSCEP STAPH INFCT CAUSING DIS CLASSD ELSWHR SNOMED Code(s): 365558600 Plan: 1patient was in the hospital with sepsis in this patient did have fever tachycardia elevated lactic acid source and likely right diabetic foot wound infection and evidence of MSSA bacteremia source is likely diabetic foot infection as the patient has some superficial ulceration on the plantar aspect of the right foot and a bony erosion on the right third metatarsal head 2-patient with a penicillin and Levaquin allergy that will be the number of antibiotics safe to use 3-mild renal insufficiency and high risk of nephrotoxicity 4-patient did have elevated liver enzymes but no abdominal pain vomiting or tenderness , US did show hepatic steatosis 5- patient noticed to have worsening redness on the dorsal aspect of the left foot and continued to have a fever we will obtain CT of the left foot today shows evidence of tenosynovitis but no drainable abscess podiatry has evaluated the patient and recommended I&D possibly this afternoon 6 patient to continue with cefazolin and clindamycin, monitor clinical course closely
--- NOTE | 2022-11-14 16:40 | XR ---
EXAMINATION TYPE: XR chest 2V DATE OF EXAM: 11/14/2022 4:35 PM COMPARISON: Chest radiographs from 02/17/2015, CT chest 06/20/2015 TECHNIQUE: XR chest 2V Frontal and lateral views of the chest. CLINICAL INDICATION:Male, 57 years old with history of fever; FINDINGS: Lungs/Pleura: Blunting of both costophrenic angles. No focal consolidation or pneumothorax. Pulmonary vascularity: Unremarkable. Heart/mediastinum: Cardiomediastinal silhouette is enlarged and stable. Musculoskeletal: No acute osseous pathology. IMPRESSION: Cardiomegaly and trace bilateral pleural effusions without focal consolidation.
[2022-11-14 16:57] LABS: Glucose,Whole Blood 280 mg/dL (70-110)
[2022-11-14 17:45] LABS: Appearance,Urine Clear (Clear); Bilirubin,Urine Negative (Negative); Blood,Urine Trace (Negative); Color,Urine Yellow; Glucose,Urine (UA) Trace (Negative); Ketones,Urine Negative (Negative); Leukocyte Esterase,Urine Negative (Negative); Mucus,Urine Few /hpf; Nitrite,Urine Negative (Negative); Protein,Urine 1+ (Negative); RBC,Urine 1 /hpf (0-5); Specific Gravity,Urine 1.023 (1.001-1.035); Squamous Epithelial Cell,Urine 2 /hpf (0-4); Urobilinogen,Urine <2.0 mg/dL (<2.0)
[2022-11-14 20:51] LABS: Glucose,Whole Blood 237 mg/dL (70-110)
[2022-11-14] MEDS: INSULIN DETEMIR (LEVEMIR) 100 UNIT/ML SYR SQ SCH (21:25)
[2022-11-15] MEDS: CLINDAMYCIN 900 MG in DEXTROSE 5% IN WATER 50 ML IVPB SCH ×8 (00:38→23:53)
[2022-11-15] MEDS: SODIUM CHLORIDE 0.9% 1,000 ML IV SCH (04:59)
[2022-11-15 06:05] LABS: Glucose,Whole Blood 168 mg/dL (70-110)
[2022-11-15] MEDS: INSULIN ASPART (NovoLOG) 100 UNIT/ML VIAL SQ SCH ×7 (08:00→21:14)
[2022-11-15] MEDS: PIOGLITAZONE 30 MG TAB PO SCH (08:00)
[2022-11-15] MEDS: FAMOTIDINE 20 MG TAB PO SCH ×2 (08:00→20:29)
[2022-11-15] MEDS: PREGABALIN 100 MG CAP PO SCH ×2 (08:00→20:29)
[2022-11-15] MEDS ORDERED: HYDROPHILIC CREAM 180 GM TUBE TOPICAL PRN (10:31)
--- NOTE | 2022-11-15 10:43 | P.CONS ---
History of Present Illness - Reason for Consult Consult date: 11/15/22 wound care - History of Present Illness This is a 52-year-old gentleman with past medical history significant for diabetes, GERD, hypertension, a stimulated and pain to the left foot from 2018 and neuropathy. patient is a former smoker he quit in 1989. Patient is being seen for wound care to the right hallux patient has a full-thickness ulceration to the dorsal foot. With Slough and nonviable tissue present with minimal granulation patient does not have any tunneling or undermining noted. The wound edges are attached to the wound base. The surrounding area does have erythema and maceration. Patient also has ecchymosis and swelling noted to the left foot with erythema. There is no open ulcerations of that foot. Is currently Elie wrapped. Review Of Systems: Constitutional: No fever, no chills, no night sweats. No weight change. No weakness, fatigue or lethargy. No daytime sleepiness. Integumentary:reports wounds, no lesions. No rash or pruritus. No unusual bruising. No change in hair or nails. Physical exam: General Appearance: Alert, cooperative, no distress, appears stated age. Skin: See HPI all other Skin color, texture, tugor normal, no rashes or lesions. Neurologic: Alert oriented x3 Assessment: 1. 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 Osteomalacia as of right foot 3. Cellulitis left foot Plan: 1. Right hallux: Apply honey gel, dry gauze, secure with paper tape change Friday. 2. Left foot: Apply Elie wrap daily, if the area becomes to weep or has sloughing noted apply triad to the site and wrap with Elie wrap. Change daily as needed 3. Patient would benefit from continued advanced wound care and wound care system upon discharge. Or he may follow up with Dr. Daniel. Thank you for the consultation any questions please contact the wound care center DNP note has been reviewed and discussed with Dr. Meraz and the impression and plan of care has been directed as dictated. Past Medical History Past Medical History: Diabetes Mellitus, GERD/Reflux, Hypertension Additional Past Medical History / Comment(s): osteomyelitis and pain left foot, stepped on kristen nail October 2018,hx neuropathy History of Any Multi-Drug Resistant Organisms: MRSA Year Discovered:: march 2022 MDRO Source:: toe Past Surgical History: Tonsillectomy Additional Past Surgical History / Comment(s): endoscopy, middle toe rt foot removed ,lft 2nd toe tip removed Past Anesthesia/Blood Transfusion Reactions: No Reported Reaction Past Psychological History: No Psychological Hx Reported Smoking Status: Former smoker Past Alcohol Use History: None Reported Additional Past Alcohol Use History / Comment(s): STARTED SMOKING AT AROUND 21 SMOKED LESS 1/2PPD QUIT 1989 Past Drug Use History: None Reported - Past Family History Mother Family Medical History: Cancer Additional Family Medical History / Comment(s): breast cancer Father Family Medical History: Cancer Additional Family Medical History / Comment(s): lung cancer Sister(s) Family Medical History: Cancer Additional Family Medical History / Comment(s): lung cancer Medications and Allergies Home Medications Medication Instructions Recorded Confirmed Type Olmesartan [Benicar] 20 mg PO DAILY 02/17/15 11/09/22 History metFORMIN HCL [Glucophage] 1,250 mg PO BID 02/17/15 11/09/22 History Pioglitazone [Actos] 30 mg PO DAILY 11/09/22 11/09/22 History Allergies Allergy/AdvReac Type Severity Reaction Status Date / Time levofloxacin [From Levaquin] Allergy Swelling, Verified 11/09/22 16:40 RASH Penicillins Allergy Unknown Verified 11/09/22 16:40 Childhood Physical Exam Vitals: Vital Signs Temp Pulse Resp BP Pulse Ox 11/15/22 08:12 99 11/15/22 08:05 98.4 F 65 16 147/73 96 11/15/22 04:00 99.0 F 72 17 145/67 99 11/14/22 20:00 66 18 11/14/22 19:28 97.6 F 66 18 153/79 98 11/14/22 17:06 97.8 F 11/14/22 15:41 101.5 F H 11/14/22 14:00 101.2 F H 77 18 165/53 98 11/14/22 13:25 98.9 F Intake and Output 11/14/22 11/15/22 11/15/22 22:59 06:59 14:59 Intake Total 237 Balance 237 Intake: Oral 237 Other: # Voids 1 2 # Bowel Movements 1 Results CBC & Chem 7: 11/12/22 05:52 11/14/22 05:41 Labs: Abnormal Lab Results - Last 24 Hours (Table) 11/14/22 11/14/22 11/14/22 Range/Units 12:40 16:56 17:20 POC Glucose (mg/dL) 228 H 280 H (70-110) mg/dL Urine Protein 1+ H (Negative) Urine Glucose (UA) Trace H (Negative) Urine Blood Trace H (Negative) Urine Mucus Few H (None) /hpf 11/14/22 11/15/22 Range/Units 20:50 06:04 POC Glucose (mg/dL) 237 H 168 H (70-110) mg/dL Urine Protein (Negative) Urine Glucose (UA) (Negative) Urine Blood (Negative) Urine Mucus (None) /hpf Microbiology - Last 24 Hours (Table) 11/11/22 06:19 Blood Culture Gram Stain - Final Blood Blood Culture - Final Staphylococcus aureus 11/12/22 17:23 Blood Culture - Preliminary Blood Assessment and Plan (1) Non-pressure 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 Current Visit: Yes Status: Acute Code(s): L97.514 - NON-PRS CHRONIC ULCER OTH PRT RIGHT FOOT W NECROSIS OF BONE SNOMED Code(s): 78377422064814805 (2) Type 2 diabetes mellitus with foot ulcer Current Visit: Yes Status: Acute Code(s): E11.621 - TYPE 2 DIABETES MELLITUS WITH FOOT ULCER; L97.509 - NON-PRESSURE CHRONIC ULCER OTH PRT UNSP FOOT W UNSP SEVERITY SNOMED Code(s): 471756957 (3) Cellulitis of left foot Current Visit: Yes Status: Acute Code(s): L03.116 - CELLULITIS OF LEFT LOWER LIMB SNOMED Code(s): 638714565 (4) Osteomyelitis Current Visit: Yes Status: Acute Code(s): M86.9 - OSTEOMYELITIS, UNSPECIFIED SNOMED Code(s): 33206644
--- NOTE | 2022-11-15 12:10 | P.CON ---
Consult Note - . Consult date: 11/15/22 Assessment/Plan:: Review Of Systems: Constitutional: No fever, no chills, no night sweats. No weight change. No weakness, fatigue or lethargy. No daytime sleepiness. Integumentary:reports wounds, no lesions. No rash or pruritus. No unusual bruising. No change in hair or nails. Physical exam: General Appearance: Alert, cooperative, no distress, appears stated age. Skin: See HPI all other Skin color, texture, tugor normal, no rashes or lesions. Neurologic: Alert oriented x3 Assessment: 1. 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 Osteomalacia as of right foot 3. Cellulitis left foot Plan: 1. Continue nonweightbearing and continue use of a Elie wrap to compress is to get the MRI to assess for any fluid collection or abscess is that may be subdermal and to assess for Charcot joint deformity. We discussed with patient plan patient is aware that this is a Charcot-type foot active in acute and will need to be nonweightbearing.
[2022-11-15 12:15] LABS: Glucose,Whole Blood 222 mg/dL (70-110)
--- NOTE | 2022-11-15 15:59 | P.PN ---
Subjective Progress Note Date: 11/15/22 Principal diagnosis: Diabetic foot infection Patient is a 57-year-old male with a past medically significant for diabetes mellitus history of diabetic foot infection requiring amputation of the toe presenting to the hospital with weakness not feeling well patient was no ticed to be febrile and did have evidence of MSSA bacteremia concern for possible diabetic foot infection. On today's evaluation that is 11/15/2022 patient did spike a fever yesterday afternoon how the patient is afebrile since then patient is currently breathing comfortably no chest pain or shortness of cough no nausea no vomiting no abdominal pain no diarrhea Objective - Vital Signs Vital signs: Vital Signs Temp 98.4 F 11/15/22 08:05 Pulse 65 11/15/22 08:05 Resp 16 11/15/22 08:05 BP 147/73 11/15/22 08:05 Pulse Ox 99 11/15/22 08:12 FiO2 Intake & Output 11/14/22 11/15/22 11/15/22 18:59 06:59 18:59 Intake Total 947 Balance 947 Weight 136.078 kg Intake: Oral 947 Other: # Voids 1 2 # Bowel Movements 1 1 - Exam GENERAL DESCRIPTION: Middle-age male lying in bed in no distress RESPIRATORY SYSTEM: Unlabored breathing , decreased breath sounds at bases HEART: S1 S2 regular rate and rhythm ,no loud murmurs ABDOMEN: Soft , no tenderness EXTREMITIES: Right foot dorsum did have erythema no drainage was noticed - Labs CBC & Chem 7: 11/12/22 05:52 11/14/22 05:41 Labs: Abnormal Lab Results - Last 24 Hours (Table) 11/14/22 11/14/22 11/14/22 Range/Units 16:56 17:20 20:50 POC Glucose (mg/dL) 280 H 237 H (70-110) mg/dL Urine Protein 1+ H (Negative) Urine Glucose (UA) Trace H (Negative) Urine Blood Trace H (Negative) Urine Mucus Few H (None) /hpf 11/15/22 11/15/22 Range/Units 06:04 12:13 POC Glucose (mg/dL) 168 H 222 H (70-110) mg/dL Urine Protein (Negative) Urine Glucose (UA) (Negative) Urine Blood (Negative) Urine Mucus (None) /hpf Microbiology - Last 24 Hours (Table) 11/12/22 17:23 Blood Culture - Preliminary Blood 11/11/22 06:19 Blood Culture Gram Stain - Final Blood Blood Culture - Final Staphylococcus aureus Assessment and Plan (1) Diabetic foot ulcer Current Visit: Yes Status: Acute Code(s): E11.621 - TYPE 2 DIABETES MELLITUS WITH FOOT ULCER; L97.509 - NON-PRESSURE CHRONIC ULCER OTH PRT UNSP FOOT W UNSP SEVERITY SNOMED Code(s): 137237527 (2) Cellulitis of right foot Current Visit: No Status: Acute Priority: Medium Code(s): L03.115 - CELLULITIS OF RIGHT LOWER LIMB SNOMED Code(s): 573473450 (3) MSSA bacteremia Current Visit: No Status: Acute Code(s): R78.81 - BACTEREMIA; B95.61 - METHICILLIN SUSCEP STAPH INFCT CAUSING DIS CLASSD ELSWHR SNOMED Code(s): 613769978 Plan: 1patient was in the hospital with sepsis in this patient did have fever tach ycardia elevated lactic acid source and likely right diabetic foot wound infection and evidence of MSSA bacteremia source is likely diabetic foot infection , repeat blood culture 11/12/2022 has been negative so far 2- patient noticed to have worsening redness on the dorsal aspect of the left foot and continued to have a fever we will obtain CT of the left foot today shows evidence of tenosynovitis but no drainable abscess podiatry has evaluated the patient and recommended MRI before proceeding with any surgical intervention this was discussed in detail with Dr. Daniel on the floor 3- patient to continue with cefazolin and clindamycin Time with Patient: Less than 30
--- NOTE | 2022-11-15 16:23 | P.PN ---
Subjective Progress Note Date: 11/15/22 This is a 57 year old male admitted with a diabetic foot ulcer on the right foot pad, foot xray shows concern for osteomyelitis and patient scheduled to undergo a bone scan today. Continues on IV cefazolin and ID is following the patient. Sodium improving with normal saline which is decreased to 100 mls/hr, losartan has been discontinued as blood pressures have been running low/normal. Patient is having 9/10 pain to the right foot and requested additional pain medication. Inflammatory markers are elevated. 11/12/2022 Patient is evaluated today resting in bed, Continues to report pain to the left foot. Underwent bone scan which cannot exclude osteomyelitis involving the left midfoot additional considerations include neuropathic arthropathy. Blood culture prelim showing presumptive staph aureus and repeat is pending and showing gram positive cocci in clusters. Patient continues on IV cefazolin. CT of the left foot has been ordered. T-Max overnight 101.2. Continues with mild elevated LFTs. 11/13/2022 Patient evaluated resting in bed. Left foot is more swollen with area of erythema progressing beyond the border moving into the ankle and mostly along the lateral border of the left foot. There is some superficial blistering appearing on the top of the foot as well. Patient reports increased pain with movement of the foot. Repeat blood cultures showing staph aureus from the and were repeated yesterday as well. Dr Daniel requested to evaluate the patient. Continues on IV cefazolin and IV clindamycin has been added today. Temp 99-7 today. 11/14/2022 Patient resting in bed family at bedside. Left foot is swollen with erythema. María had evaluated the patient and felt patient likely has neuropathic arthropathy and considering I and D with culture with concern for disease soft t issue cellulitis of the left foot. The foot has been wrapped with JOHAN bandage and will be elevated. Follow up blood cultures are so far negative. Continues on cefazolin and clindamycin with microsensitivities. Sodium 135, potassium 3.4, BUN 14, creatinine 0.95. Blood glucose 228, calcium 7.2. Patient remains afebrile, heart rate 68, blood pressure 132/71, 98% room air . 11/15/2022 Patient is evaluated today resting in bed. Left foot has been JOHAN wrapped overnight with minimal reduction in swelling there is significant discoloration along the lateral aspect of the left foot. MRI has been taken requested by Dr Daniel rule out infection vs. Charcot foot exam is currently pending at this time. Local wound care with honey gel and dry gauze to the right halux. Recommendations to apply triad to the left foot if blistering and weeping occur. Repeat blood culture is negative so far. Review of Systems Constitutional: Denied any fatigue denied any fever. Cardio vascular: denied any chest pain, palpitations Gastrointestinal: denied any nausea, vomiting, diarrhea Pulmonary: Denied any shortness of breath cough Neurologic: Denied any new focal deficits All inpatient medications were reviewed and appropriate changes in these medications as dictated in the interval history and assessment and plan. PHYSICAL EXAMINATION: GENERAL: The patient is alert and oriented x3, not in any acute distress. Well developed, well nourished. HEENT: Pupils are round and equally reacting to light. EOMI. No scleral icterus. No conjunctival pallor. Normocephalic, atraumatic. No pharyngeal erythema. No t hyromegaly. CARDIOVASCULAR: S1 and S2 present. No murmurs, rubs, or gallops. PULMONARY: Chest is clear to auscultation, no wheezing or crackles. ABDOMEN: Soft, nontender, nondistended, normoactive bowel sounds. No palpable organomegaly. MUSCULOSKELETAL: No joint swelling or deformity. EXTREMITIES: No cyanosis, clubbing, or pedal edema. NEUROLOGICAL: Gross neurological examination did not reveal any focal deficits. SKIN: No rashes. Swelling and redness foot pad of the right foot. No drainage. The left foot has increased redness swelling along the lateral aspect and has moved outside of the outline superficial blistering on the top of the foot. Assessment Right foot diabetic ulcer and sepsis /osteomyelitis Bacteremia staph aureus Worsening swelling and erythema to the left foot worsening and foot CT shows possible tenosynovitis /neuropathic arthropathy Mild acute kidney injury secondary to sepsis Hyponatremia hypovolemic improved. Hepatic steatosis with elevated LFT's, hepatitis panel negative Lactic acidosis from sepsis and likely worsened by metformin use normalized. Diabetes Mellitus type 2 with hyperglycemia GERD Hx of hypertension Former Smoker GI prophylaxis DVT prophylaxis Full Code Plan Continue IV antibiotics, infectious disease on board and following cultures MRI left foot pending. Left foot has been JOHAN wrapped and recommending elevation and ice Lactic acid normalized and patient to continue off metformin. Pain management in place. Patient will be started on lyrica for the neuropathic pain The impression and plan of care has been dictated by Mervat Harris Nurse Practitioner as directed. Dr. Nessa MD I have performed a history and physical examination and medical decision making of this patient, discussed the same with the dictator, and agree with the dictators assessment and plan as written, documented as a scribe. Based on total visit time, I have performed more than 50% of this visit. Objective - Vital Signs Vital signs: Vital Signs Temp 98.5 F 11/15/22 14:00 Pulse 72 11/15/22 14:00 Resp 16 11/15/22 14:00 BP 150/81 11/15/22 14:00 Pulse Ox 98 11/15/22 14:00 FiO2 Intake & Output 11/14/22 11/15/22 11/15/22 18:59 06:59 18:59 Intake Total 947 Balance 947 Weight 136.078 kg Intake: Oral 947 Other: # Voids 1 2 3 # Bowel Movements 1 1 - Labs CBC & Chem 7: 11/12/22 05:52 11/14/22 05:41 Labs: Abnormal Lab Results - Last 24 Hours (Table) 11/14/22 11/14/22 11/14/22 Range/Units 16:56 17:20 20:50 POC Glucose (mg/dL) 280 H 237 H (70-110) mg/dL Urine Protein 1+ H (Negative) Urine Glucose (UA) Trace H (Negative) Urine Blood Trace H (Negative) Urine Mucus Few H (None) /hpf 11/15/22 11/15/22 Range/Units 06:04 12:13 POC Glucose (mg/dL) 168 H 222 H (70-110) mg/dL Urine Protein (Negative) Urine Glucose (UA) (Negative) Urine Blood (Negative) Urine Mucus (None) /hpf Microbiology - Last 24 Hours (Table) 11/12/22 17:23 Blood Culture - Preliminary Blood 11/11/22 06:19 Blood Culture Gram Stain - Final Blood Blood Culture - Final Staphylococcus aureus Assessment and Plan Time with Patient: Less than 30
[2022-11-15 18:09] LABS: Glucose,Whole Blood 170 mg/dL (70-110)
[2022-11-15] MEDS: HYDROcodone/APAP 5-325MG 1 EACH TAB PO PRN (18:10)
[2022-11-15 20:50] LABS: Glucose,Whole Blood 224 mg/dL (70-110)
[2022-11-15] MEDS: INSULIN DETEMIR (LEVEMIR) 100 UNIT/ML SYR SQ SCH (21:13)
[2022-11-15] MEDS: KETOROLAC 15 MG/ML 1 ML VIAL IVP PRN (22:07)
--- NOTE | 2022-11-15 22:23 | MR ---
EXAMINATION TYPE: MR foot LT wo/w con DATE OF EXAM: 11/15/2022 6:08 PM CLINICAL INDICATION:Male, 57 years old with history of swelling, pain; COMPARISON: CT 11/12/2022 11/11/2022 bone scan TECHNIQUE: Multiplanar, multisequence MR imaging of the left forefoot was performed administration o f IV gadolinium contrast. MR contrast: IV Contrast: 14ML cc Gadavist FINDINGS: Persistent dorsal midfoot and forefoot subcutaneous edema. There is a fluid collection projecting ove r the dorsal aspect of the third metatarsal measuring 8 x 9 x 23 mm which is not definitively enhance much and postcontrast imaging suggesting possibly this is a joint fluid extending away from the join t. Additional fluid collection of the surrounding the extensor digitorum tendons suggestive of tenosynov itis. Persistent hammertoes are noted. Some deformity to the distal phalanx of the second toe, possible old healed fracture deformity given angulation at the level of the phalangeal base. IMPRESSION: 1. Persistent deformity of the midfoot tarsals suspicious for Charcot arthropathy. Overall the bone marrow signal throughout the midfoot tarsals in the area of deformity demonstrate low T1 signal which could represent superimposed osteomyelitis versus edema changes. Findings corroborate with nuclear m edicine bone scan and CT imaging. Correlate with serum markers. 2. Persistent dorsal midfoot and forefoot edema with fluid collection posterior to the third metatar everett which may actually be a distended joint space and less likely abscess. This can be further evalua ion with ultrasound. No definitive abscess is visualized. 3. Fluid surrounding the extensor digitorum tendons suggestive of tenosynovitis,
[2022-11-16] MEDS: traMADol 50 MG TAB PO PRN (01:58)
[2022-11-16 06:06] LABS: Glucose,Whole Blood 133 mg/dL (70-110)
[2022-11-16] MEDS: INSULIN ASPART (NovoLOG) 100 UNIT/ML VIAL SQ SCH ×7 (06:16→21:57)
[2022-11-16 06:41] LABS: Basophils % (A) 0 %; Eosinophils % (A) 1 %; HCT 26.1 % (39.0-53.0); HGB 8.7 gm/dL (13.0-17.5); Lymphocytes # (A) 1.1 k/uL (1.0-4.8); Lymphocytes % (A) 35 %; MCH 31.7 pg (25.0-35.0); MCHC 33.2 g/dL (31.0-37.0); MCV 95.6 fL (80.0-100.0); Mean Platelet Volume 8.4; Monocytes # (A) 0.2 k/uL (0-1.0); Monocytes % (A) 6 %; Neutrophils # (A) 1.7 k/uL (1.3-7.7); Neutrophils % (A) 55 %; Platelet Count 216 k/uL (150-450); RBC 2.73 m/uL (4.30-5.90); RDW 13.4 % (11.5-15.5); WBC 3.2 k/uL (3.8-10.6)
[2022-11-16 07:08] LABS: African American GFR (CKD) >90 (>60 ml/min/1.73 sqM); Anion Gap 7 mmol/L; Blood Urea Nitrogen 14 mg/dL (9-20); Calcium 7.2 mg/dL (8.4-10.2); Carbon Dioxide 25 mmol/L (22-30); Chloride 105 mmol/L (98-107); Glucose 129 mg/dL (74-99); Non-African American GFR(CKD) 82 (>60 ml/min/1.73 sqM); Potassium 3.5 mmol/L (3.5-5.1); Sodium 137 mmol/L (137-145)
[2022-11-16] MEDS: PREGABALIN 100 MG CAP PO SCH ×2 (07:52→20:34)
[2022-11-16] MEDS: FAMOTIDINE 20 MG TAB PO SCH ×2 (07:52→20:34)
[2022-11-16] MEDS: PIOGLITAZONE 30 MG TAB PO SCH (07:52)
[2022-11-16] MEDS: CLINDAMYCIN 900 MG in DEXTROSE 5% IN WATER 50 ML IVPB SCH ×4 (07:52→15:53)
[2022-11-16] MEDS ORDERED: POTASSIUM CHLORIDE ER 20 MEQ TAB.ER PO STA (09:10)
[2022-11-16] MEDS: HYDROcodone/APAP 5-325MG 1 EACH TAB PO PRN ×2 (12:31→20:37)
[2022-11-16 12:34] LABS: Glucose,Whole Blood 229 mg/dL (70-110)
[2022-11-16] MEDS: ACETAMINOPHEN TAB 325 MG TAB PO PRN (15:55)
--- NOTE | 2022-11-16 16:26 | P.PN ---
Subjective Progress Note Date: 11/16/22 This is a 57 year old male admitted with a diabetic foot ulcer on the right foot pad, foot xray shows concern for osteomyelitis and patient scheduled to undergo a bone scan today. Continues on IV cefazolin and ID is following the patient. Sodium improving with normal saline which is decreased to 100 mls/hr, losartan has been discontinued as blood pressures have been running low/normal. Patient is having 9/10 pain to the right foot and requested additional pain medication. Inflammatory markers are elevated. 11/12/2022 Patient is evaluated today resting in bed, Continues to report pain to the left foot. Underwent bone scan which cannot exclude osteomyelitis involving the left midfoot additional considerations include neuropathic arthropathy. Blood culture prelim showing presumptive staph aureus and repeat is pending and showing gram positive cocci in clusters. Patient continues on IV cefazolin. CT of the left foot has been ordered. T-Max overnight 101.2. Continues with mild elevated LFTs. 11/13/2022 Patient evaluated resting in bed. Left foot is more swollen with area of erythema progressing beyond the border moving into the ankle and mostly along the lateral border of the left foot. There is some superficial blistering appearing on the top of the foot as well. Patient reports increased pain with movement of the foot. Repeat blood cultures showing staph aureus from the and were repeated yesterday as well. Dr Daniel requested to evaluate the patient. Continues on IV cefazolin and IV clindamycin has been added today. Temp 99-7 today. 11/14/2022 Patient resting in bed family at bedside. Left foot is swollen with erythema. María had evaluated the patient and felt patient likely has neuropathic arthropathy and considering I and D with culture with concern for disease soft t issue cellulitis of the left foot. The foot has been wrapped with JOHAN bandage and will be elevated. Follow up blood cultures are so far negative. Continues on cefazolin and clindamycin with microsensitivities. Sodium 135, potassium 3.4, BUN 14, creatinine 0.95. Blood glucose 228, calcium 7.2. Patient remains afebrile, heart rate 68, blood pressure 132/71, 98% room air . 11/15/2022 Patient is evaluated today resting in bed. Left foot has been JOHAN wrapped overnight with minimal reduction in swelling there is significant discoloration along the lateral aspect of the left foot. MRI has been taken requested by Dr Daniel rule out infection vs. Charcot foot exam is currently pending at this time. Local wound care with honey gel and dry gauze to the right halux. Recommendations to apply triad to the left foot if blistering and weeping occur. Repeat blood culture is negative so far. 11/16/2022 MRI of the foot has been taken revealing Charcot arthropathy with midfoot tarsals possible ostial myelitis however this is unlikely there is also evidence of tenosynovitis. Dr Daniel currently not planning any surgical intervention and will continue on IV antibiotics and plans for PICC line placement on Friday. Blood culture f.u negative so far. Review of Systems Constitutional: Denied any fatigue denied any fever. Cardio vascular: denied any chest pain, palpitations Gastrointestinal: denied any nausea, vomiting, diarrhea Pulmonary: Denied any shortness of breath cough Neurologic: Denied any new focal deficits All inpatient medications were reviewed and appropriate changes in these medi cations as dictated in the interval history and assessment and plan. PHYSICAL EXAMINATION: GENERAL: The patient is alert and oriented x3, not in any acute distress. Well developed, well nourished. HEENT: Pupils are round and equally reacting to light. EOMI. No scleral icterus. No conjunctival pallor. Normocephalic, atraumatic. No pharyngeal erythema. No thyromegaly. CARDIOVASCULAR: S1 and S2 present. No murmurs, rubs, or gallops. PULMONARY: Chest is clear to auscultation, no wheezing or crackles. ABDOMEN: Soft, nontender, nondistended, normoactive bowel sounds. No palpable organomegaly. MUSCULOSKELETAL: No joint swelling or deformity. EXTREMITIES: No cyanosis, clubbing, or pedal edema. NEUROLOGICAL: Gross neurological examination did not reveal any focal deficits. SKIN: No rashes. Swelling and redness foot pad of the right foot. No drainage. The left foot has increased redness swelling along the lateral aspect and has moved outside of the outline superficial blistering on the top of the foot. Assessment Right foot diabetic ulcer and sepsis /osteomyelitis Bacteremia staph aureus Worsening swelling and erythema to the left foot worsening and this is likely charcot foot due to underlying tenosynovitis /neuropathic arthropathy Mild acute kidney injury secondary to sepsis resolved. Hyponatremia hypovolemic improved. Hepatic steatosis with elevated LFT's, hepatitis panel negative Lactic acidosis from sepsis and likely worsened by metformin use normalized. Diabetes Mellitus type 2 with hyperglycemia GERD Hx of hypertension Former Smoker GI prophylaxis DVT prophylaxis Full Code Plan Continue IV antibiotics, infectious disease on board and following cultures Left foot has been JOHAN wrapped and recommending elevation and ice Lactic acid normalized and patient to continue off metformin. Pain management in place. Patient will be started on lyrica for the neuropathic pain PICC line placement Friday and discharge planning with IV antibiotics The impression and plan of care has been dictated by Mervat Harris, Nurse Practitioner as directed. Dr. Nessa MD I have performed a history and physical examination and medical decision making of this patient, discussed the same with the dictator, and agree with the dictators assessment and plan as written, documented as a scribe. Based on total visit time, I have performed more than 50% of this visit. Objective - Vital Signs Vital signs: Vital Signs Temp 98.2 F 11/16/22 08:00 Pulse 73 11/16/22 08:00 Resp 16 11/16/22 08:00 BP 149/72 11/16/22 08:00 Pulse Ox 96 11/16/22 08:00 FiO2 Intake & Output 11/15/22 11/16/22 11/16/22 18:59 06:59 18:59 Weight 136.078 kg Other: # Voids 3 2 - Labs CBC & Chem 7: 11/16/22 05:48 11/16/22 05:48 Labs: Abnormal Lab Results - Last 24 Hours (Table) 11/15/22 11/15/22 11/15/22 Range/Units 12:13 18:08 20:48 WBC (3.8-10.6) k/uL RBC (4.30-5.90) m/uL Hgb (13.0-17.5) gm/dL Hct (39.0-53.0) % Glucose (74-99) mg/dL POC Glucose (mg/dL) 222 H 170 H 224 H (70-110) mg/dL Calcium (8.4-10.2) mg/dL 11/16/22 11/16/22 11/16/22 Range/Units 05:48 05:48 06:05 WBC 3.2 L (3.8-10.6) k/uL RBC 2.73 L (4.30-5.90) m/uL Hgb 8.7 L (13.0-17.5) gm/dL Hct 26.1 L (39.0-53.0) % Glucose 129 H (74-99) mg/dL POC Glucose (mg/dL) 133 H (70-110) mg/dL Calcium 7.2 L (8.4-10.2) mg/dL Microbiology - Last 24 Hours (Table) 11/14/22 17:40 Blood Culture - Preliminary Blood 11/12/22 17:23 Blood Culture - Preliminary Blood Assessment and Plan Time with Patient: Less than 30
[2022-11-16 17:05] LABS: Glucose,Whole Blood 230 mg/dL (70-110)
[2022-11-16 21:42] LABS: Glucose,Whole Blood 252 mg/dL (70-110)
[2022-11-16] MEDS: INSULIN DETEMIR (LEVEMIR) 100 UNIT/ML SYR SQ SCH (21:57)
[2022-11-17] MEDS: CLINDAMYCIN 900 MG in DEXTROSE 5% IN WATER 50 ML IVPB SCH ×8 (00:25→23:23)
[2022-11-17] MEDS: ACETAMINOPHEN TAB 325 MG TAB PO PRN (00:33)
[2022-11-17 06:28] LABS: Glucose,Whole Blood 172 mg/dL (70-110)
[2022-11-17] MEDS: INSULIN ASPART (NovoLOG) 100 UNIT/ML VIAL SQ SCH ×7 (06:39→22:20)
[2022-11-17] MEDS: PIOGLITAZONE 30 MG TAB PO SCH (07:39)
[2022-11-17] MEDS: PREGABALIN 100 MG CAP PO SCH ×2 (07:39→21:07)
[2022-11-17] MEDS: FAMOTIDINE 20 MG TAB PO SCH ×2 (07:39→21:07)
[2022-11-17 12:12] LABS: Glucose,Whole Blood 171 mg/dL (70-110)
--- NOTE | 2022-11-17 14:32 | P.PN ---
Subjective Progress Note Date: 11/17/22 This is a 57 year old male admitted with a diabetic foot ulcer on the right foot pad, foot xray shows concern for osteomyelitis and patient scheduled to undergo a bone scan today. Continues on IV cefazolin and ID is following the patient. Sodium improving with normal saline which is decreased to 100 mls/hr, losartan has been discontinued as blood pressures have been running low/normal. Patient is having 9/10 pain to the right foot and requested additional pain medication. Inflammatory markers are elevated. 11/12/2022 Patient is evaluated today resting in bed, Continues to report pain to the left foot. Underwent bone scan which cannot exclude osteomyelitis involving the left midfoot additional considerations include neuropathic arthropathy. Blood culture prelim showing presumptive staph aureus and repeat is pending and showing gram positive cocci in clusters. Patient continues on IV cefazolin. CT of the left foot has been ordered. T-Max overnight 101.2. Continues with mild elevated LFTs. 11/13/2022 Patient evaluated resting in bed. Left foot is more swollen with area of erythema progressing beyond the border moving into the ankle and mostly along the lateral border of the left foot. There is some superficial blistering appearing on the top of the foot as well. Patient reports increased pain with movement of the foot. Repeat blood cultures showing staph aureus from the and were repeated yesterday as well. Dr Daniel requested to evaluate the patient. Continues on IV cefazolin and IV clindamycin has been added today. Temp 99-7 today. 11/14/2022 Patient resting in bed family at bedside. Left foot is swollen with erythema. María had evaluated the patient and felt patient likely has neuropathic arthropathy and considering I and D with culture with concern for disease soft t issue cellulitis of the left foot. The foot has been wrapped with JOHAN bandage and will be elevated. Follow up blood cultures are so far negative. Continues on cefazolin and clindamycin with microsensitivities. Sodium 135, potassium 3.4, BUN 14, creatinine 0.95. Blood glucose 228, calcium 7.2. Patient remains afebrile, heart rate 68, blood pressure 132/71, 98% room air . 11/15/2022 Patient is evaluated today resting in bed. Left foot has been JOHAN wrapped overnight with minimal reduction in swelling there is significant discoloration along the lateral aspect of the left foot. MRI has been taken requested by Dr Daniel rule out infection vs. Charcot foot exam is currently pending at this time. Local wound care with honey gel and dry gauze to the right halux. Recommendations to apply triad to the left foot if blistering and weeping occur. Repeat blood culture is negative so far. 11/16/2022 MRI of the foot has been taken revealing Charcot arthropathy with midfoot tarsals possible ostial myelitis however this is unlikely there is also evidence of tenosynovitis. Dr Daniel currently not planning any surgical intervention and will continue on IV antibiotics and plans for PICC line placement on Friday. Blood culture f.u negative so far. 11/17/2022 Patient is evaluated today resting in bed. He continues to have swelling to the left foot mostly in the left ankle now. The blister on the top of the foot has popped and is weeping slightly now. patient to have triad cream applied with JOHAN wrap to continue. No plans for surgical intervention and patient to have PICC line placed friday. No other acute complaints at this time. Review of Systems Constitutional: Denied any fatigue denied any fever. Cardio vascular: denied any chest pain, palpitations Gastrointestinal: denied any nausea, vomiting, diarrhea Pulmonary: Denied any shortness of breath cough Neurologic: Denied any new focal deficits All inpatient medications were reviewed and appropriate changes in these medications as dictated in the interval history and assessment and plan. PHYSICAL EXAMINATION: GENERAL: The patient is alert and oriented x3, not in any acute distress. Well developed, well nourished. HEENT: Pupils are round and equally reacting to light. EOMI. No scleral icterus. No conjunctival pallor. Normocephalic, atraumatic. No pharyngeal erythema. No thyromegaly. CARDIOVASCULAR: S1 and S2 present. No murmurs, rubs, or gallops. PULMONARY: Chest is clear to auscultation, no wheezing or crackles. ABDOMEN: Soft, nontender, nondistended, normoactive bowel sounds. No palpable organomegaly. MUSCULOSKELETAL: No joint swelling or deformity. EXTREMITIES: No cyanosis, clubbing, or pedal edema. NEUROLOGICAL: Gross neurological examination did not reveal any focal deficits. SKIN: No rashes. Swelling and redness foot pad of the right foot. No drainage. The left foot has increased redness swelling along the lateral aspect and has moved outside of the outline superficial blistering on the top of the foot. The blister has now popped with some serous discharged. Assessment Right foot diabetic ulcer and sepsis /osteomyelitis Bacteremia staph aureus Worsening swelling and erythema to the left foot worsening and this is likely charcot foot due to underlying tenosynovitis /neuropathic arthropathy Mild acute kidney injury secondary to sepsis resolved. Hyponatremia hypovolemic improved. Hepatic steatosis with elevated LFT's, hepatitis panel negative Lactic acidosis from sepsis and likely worsened by metformin use normalized. Diabetes Mellitus type 2 with hyperglycemia GERD Hx of hypertension Former Smoker GI prophylaxis DVT prophylaxis Full Code Plan Continue IV antibiotics, infectious disease on board and following cultures Left foot has been JOHAN wrapped and recommending elevation and ice Lactic acid normalized and patient to continue off metformin. Pain management in place. Patient will be started on lyrica for the neuropathic pain PICC line placement Friday and discharge planning with IV antibiotics The impression and plan of care has been dictated by Mervat Harris, Nurse Practitioner as directed. Dr. Nessa MD I have performed a history and physical examination and medical decision making of this patient, discussed the same with the dictator, and agree with the dictators assessment and plan as written, documented as a scribe. Based on total visit time, I have performed more than 50% of this visit. Objective - Vital Signs Vital signs: Vital Signs Temp 98.2 F 11/17/22 08:00 Pulse 66 11/17/22 08:00 Resp 18 11/17/22 08:00 BP 158/71 11/17/22 08:00 Pulse Ox 98 11/17/22 09:31 FiO2 Intake & Output 11/16/22 11/17/22 11/17/22 18:59 06:59 18:59 Other: # Voids 2 2 - Labs CBC & Chem 7: 11/16/22 05:48 11/16/22 05:48 Labs: Abnormal Lab Results - Last 24 Hours (Table) 11/16/22 11/16/22 11/17/22 Range/Units 17:03 21:41 06:27 POC Glucose (mg/dL) 230 H 252 H 172 H (70-110) mg/dL 11/17/22 Range/Units 12:10 POC Glucose (mg/dL) 171 H (70-110) mg/dL Microbiology - Last 24 Hours (Table) 06/15/23 17:40 Blood Culture - Preliminary Blood 11/12/22 17:23 Blood Culture - Preliminary Blood Assessment and Plan Time with Patient: Less than 30
[2022-11-17 17:25] LABS: Glucose,Whole Blood 206 mg/dL (70-110)
[2022-11-17] MEDS: HYDROcodone/APAP 5-325MG 1 EACH TAB PO PRN (21:09)
[2022-11-17] MEDS: INSULIN DETEMIR (LEVEMIR) 100 UNIT/ML SYR SQ SCH (22:17)
[2022-11-17 22:18] LABS: Glucose,Whole Blood 185 mg/dL (70-110)
--- NOTE | 2022-11-17 23:08 | P.PN ---
Subjective Progress Note Date: 11/16/22 Principal diagnosis: Diabetic foot infection Patient is a 57-year-old male with a past medically significant for diabetes mellitus history of diabetic foot infection requiring amputation of the toe presenting to the hospital with weakness not feeling well patient was no ticed to be febrile and did have evidence of MSSA bacteremia concern for possible diabetic foot infection. On today's evaluation that is 11/16/2022 patient is afebrile today, the patient is currently breathing comfortably on room air, the patient denies chest pain or shortness of cough no nausea no vomiting no abdominal pain no diarrhea Objective - Vital Signs Vital signs: Vital Signs Temp 98.2 F 11/16/22 08:00 Pulse 73 11/16/22 08:00 Resp 16 11/16/22 08:00 BP 149/72 11/16/22 08:00 Pulse Ox 96 11/16/22 08:00 FiO2 Intake & Output 11/15/22 11/16/22 11/16/22 18:59 06:59 18:59 Weight 136.078 kg Other: # Voids 3 2 - Exam GENERAL DESCRIPTION: Middle-age male lying in bed in no distress RESPIRATORY SYSTEM: Unlabored breathing , decreased breath sounds at bases HEART: S1 S2 regular rate and rhythm ,no loud murmurs ABDOMEN: Soft , no tenderness EXTREMITIES: Right foot dorsum did have erythema no drainage was noticed - Labs CBC & Chem 7: 11/16/22 05:48 11/16/22 05:48 Labs: Abnormal Lab Results - Last 24 Hours (Table) 11/15/22 11/15/22 11/16/22 Range/Units 18:08 20:48 05:48 WBC 3.2 L (3.8-10.6) k/uL RBC 2.73 L (4.30-5.90) m/uL Hgb 8.7 L (13.0-17.5) gm/dL Hct 26.1 L (39.0-53.0) % Glucose (74-99) mg/dL POC Glucose (mg/dL) 170 H 224 H (70-110) mg/dL Calcium (8.4-10.2) mg/dL 11/16/22 11/16/22 Range/Units 05:48 06:05 WBC (3.8-10.6) k/uL RBC (4.30-5.90) m/uL Hgb (13.0-17.5) gm/dL Hct (39.0-53.0) % Glucose 129 H (74-99) mg/dL POC Glucose (mg/dL) 133 H (70-110) mg/dL Calcium 7.2 L (8.4-10.2) mg/dL Microbiology - Last 24 Hours (Table) 11/14/22 17:40 Blood Culture - Preliminary Blood 11/12/22 17:23 Blood Culture - Preliminary Blood Assessment and Plan (1) Diabetic foot ulcer Current Visit: Yes Status: Acute Code(s): E11.621 - TYPE 2 DIABETES MELLITUS WITH FOOT ULCER; L97.509 - NON-PRESSURE CHRONIC ULCER OTH PRT UNSP FOOT W UNSP SEVERITY SNOMED Code(s): 156710510 (2) Cellulitis of right foot Current Visit: No Status: Acute Priority: Medium Code(s): L03.115 - CELLULITIS OF RIGHT LOWER LIMB SNOMED Code(s): 073907869 (3) MSSA bacteremia Current Visit: No Status: Acute Code(s): R78.81 - BACTEREMIA; B95.61 - METHICILLIN SUSCEP STAPH INFCT CAUSING DIS CLASSD ELSWHR SNOMED Code(s): 467770247 Plan: 1patient was in the hospital with sepsis in this patient did have fever tachycardia elevated lactic acid source and likely right diabetic foot wound infection and evidence of MSSA bacteremia source is likely diabetic foot infection , repeat blood culture 11/12/2022 has been negative so far 2- patient noticed to have worsening redness on the dorsal aspect of the left foot and continued to have a fever we will obtain CT of the left foot today shows evidence of tenosynovitis but no drainable abscess podiatry has evaluated the patient and recommended MRI, which did not show any evidence of abscess 3- patient to continue with cefazolin and clindamycin and monitor clinical course closely Time with Patient: Less than 30
--- NOTE | 2022-11-17 23:09 | P.PN ---
Subjective Progress Note Date: 11/17/22 Principal diagnosis: Diabetic foot infection Patient is a 57-year-old male with a past medically significant for diabetes mellitus history of diabetic foot infection requiring amputation of the toe presenting to the hospital with weakness not feeling well patient was no ticed to be febrile and did have evidence of MSSA bacteremia concern for possible diabetic foot infection. On today's evaluation that is 11/17/2022 patient remains to be afebrile, the patient is currently breathing comfortably on room air, the patient denies chest pain or shortness of cough no nausea no vomiting no abdominal pain no diarrhea, feeling slightly better Objective - Vital Signs Vital signs: Vital Signs Temp 98.2 F 11/17/22 08:00 Pulse 66 11/17/22 08:00 Resp 18 11/17/22 08:00 BP 158/71 11/17/22 08:00 Pulse Ox 98 11/17/22 09:31 FiO2 Intake & Output 11/16/22 11/17/22 11/17/22 18:59 06:59 18:59 Other: # Voids 2 2 - Exam GENERAL DESCRIPTION: Middle-age male lying in bed in no distress RESPIRATORY SYSTEM: Unlabored breathing , decreased breath sounds at bases HEART: S1 S2 regular rate and rhythm ,no loud murmurs ABDOMEN: Soft , no tenderness EXTREMITIES: Right foot dorsum did have erythema no drainage was noticed - Labs CBC & Chem 7: 11/16/22 05:48 11/16/22 05:48 Labs: Abnormal Lab Results - Last 24 Hours (Table) 11/16/22 11/16/22 11/17/22 Range/Units 17:03 21:41 06:27 POC Glucose (mg/dL) 230 H 252 H 172 H (70-110) mg/dL 11/17/22 Range/Units 12:10 POC Glucose (mg/dL) 171 H (70-110) mg/dL Microbiology - Last 24 Hours (Table) 11/14/22 17:40 Blood Culture - Preliminary Blood 11/12/22 17:23 Blood Culture - Preliminary Blood Assessment and Plan (1) Diabetic foot ulcer Current Visit: Yes Status: Acute Code(s): E11.621 - TYPE 2 DIABETES MELLITUS WITH FOOT ULCER; L97.509 - NON-PRESSURE CHRONIC ULCER OTH PRT UNSP FOOT W UNSP SEVERITY SNOMED Code(s): 159181695 (2) Cellulitis of right foot Current Visit: No Status: Acute Priority: Medium Code(s): L03.115 - CELLULITIS OF RIGHT LOWER LIMB SNOMED Code(s): 821077292 (3) MSSA bacteremia Current Visit: No Status: Acute Code(s): R78.81 - BACTEREMIA; B95.61 - METHICILLIN SUSCEP STAPH INFCT CAUSING DIS CLASSD ELSWHR SNOMED Code(s): 809944071 Plan: 1patient was in the hospital with sepsis in this patient did have fever tachycardia elevated lactic acid source and likely right diabetic foot wound infection and evidence of MSSA bacteremia source is likely diabetic foot infection , repeat blood culture 11/12/2022 as well as 11/14/2022 has been negative so far 2- patient noticed to have worsening redness on the dorsal aspect of the left foot and continued to have a fever we will obtain CT of the left foot today shows evidence of tenosynovitis but no drainable abscess podiatry has evaluated the patient and recommended MRI, which did not show any evidence of abscess 3- patient did have resolution of his fever and acute blood culture had been negative, patient will be able to get a PICC line in the a.m. 4-patient to continue with cefazolin and clindamycin however plan for IV cefazolin on discharge 6 week discuss with the family Time with Patient: Less than 30
[2022-11-18 05:48] LABS: Glucose,Whole Blood 123 mg/dL (70-110)
[2022-11-18] MEDS: INSULIN ASPART (NovoLOG) 100 UNIT/ML VIAL SQ SCH ×8 (05:48→22:04)
[2022-11-18 06:11] LABS: Basophils % (A) 0 %; Eosinophils % (A) 1 %; HCT 29.3 % (39.0-53.0); HGB 9.6 gm/dL (13.0-17.5); Lymphocytes # (A) 1.1 k/uL (1.0-4.8); Lymphocytes % (A) 30 %; MCH 30.5 pg (25.0-35.0); MCHC 32.8 g/dL (31.0-37.0); MCV 93.1 fL (80.0-100.0); Mean Platelet Volume 8.2; Monocytes # (A) 0.2 k/uL (0-1.0); Monocytes % (A) 4 %; Neutrophils # (A) 2.3 k/uL (1.3-7.7); Neutrophils % (A) 63 %; Platelet Count 260 k/uL (150-450); RBC 3.14 m/uL (4.30-5.90); RDW 13.5 % (11.5-15.5); WBC 3.6 k/uL (3.8-10.6)
[2022-11-18 06:32] LABS: ALT 24 U/L (4-49); AST 31 U/L (17-59); African American GFR (CKD) >90 (>60 ml/min/1.73 sqM); Albumin 2.6 g/dL (3.5-5.0); Albumin/Globulin Ratio 0.8; Alkaline Phosphatase 91 U/L (38-126); Anion Gap 6 mmol/L; Blood Urea Nitrogen 14 mg/dL (9-20); Calcium 7.7 mg/dL (8.4-10.2); Carbon Dioxide 26 mmol/L (22-30); Chloride 104 mmol/L (98-107); Globulin 3.4 g/dL; Glucose 123 mg/dL (74-99); Non-African American GFR(CKD) 84 (>60 ml/min/1.73 sqM); Sodium 136 mmol/L (137-145); Total Bilirubin 0.4 mg/dL (0.2-1.3)
[2022-11-18 07:46] LABS: C Reactive Protein 5.1 mg/dL (<1.0)
[2022-11-18] MEDS: CLINDAMYCIN 900 MG in DEXTROSE 5% IN WATER 50 ML IVPB SCH ×4 (08:13→17:23)
[2022-11-18] MEDS: PREGABALIN 100 MG CAP PO SCH ×2 (09:13→21:04)
[2022-11-18] MEDS: PIOGLITAZONE 30 MG TAB PO SCH (09:13)
[2022-11-18] MEDS: FAMOTIDINE 20 MG TAB PO SCH ×2 (09:13→21:04)
[2022-11-18 09:32] LABS: Erythrocyte Sedimentation Rate 112 mm/hr (0-15)
[2022-11-18 12:21] LABS: Glucose,Whole Blood 201 mg/dL (70-110)
--- NOTE | 2022-11-18 12:37 | P.PN ---
Subjective Progress Note Date: 11/18/22 Principal diagnosis: Diabetic foot infection Patient is a 57-year-old male with a past medically significant for diabetes mellitus history of diabetic foot infection requiring amputation of the toe presenting to the hospital with weakness not feeling well patient was no ticed to be febrile and did have evidence of MSSA bacteremia concern for possible diabetic foot infection. On today's evaluation that is 11/18/2022 patient continues to be afebrile, the patient is breathing comfortably on room air, the patient denies chest pain or shortness of cough no nausea no vomiting no abdominal pain no diarrhea, denies any worsening pain to the left foot Objective - Vital Signs Vital signs: Vital Signs Temp 98.3 F 11/18/22 08:00 Pulse 70 11/18/22 08:00 Resp 16 11/18/22 08:00 BP 145/71 11/18/22 08:00 Pulse Ox 94 L 11/18/22 12:11 FiO2 Intake & Output 11/17/22 11/18/22 11/18/22 18:59 06:59 18:59 Other: # Voids 3 2 - Exam GENERAL DESCRIPTION: Middle-age male lying in bed in no distress RESPIRATORY SYSTEM: Unlabored breathing , decreased breath sounds at bases HEART: S1 S2 regular rate and rhythm ,no loud murmurs ABDOMEN: Soft , no tenderness EXTREMITIES: Left foot is currently dressed and Elie wrap no drainage on dressing - Labs CBC & Chem 7: 11/18/22 05:30 11/18/22 05:30 Labs: Abnormal Lab Results - Last 24 Hours (Table) 11/17/22 11/17/22 11/18/22 Range/Units 17:24 22:17 05:30 WBC (3.8-10.6) k/uL RBC (4.30-5.90) m/uL Hgb (13.0-17.5) gm/dL Hct (39.0-53.0) % ESR (0-15) mm/hr Sodium 136 L (137-145) mmol/L Glucose 123 H (74-99) mg/dL POC Glucose (mg/dL) 206 H 185 H (70-110) mg/dL Calcium 7.7 L (8.4-10.2) mg/dL C-Reactive Protein 5.1 H (<1.0) mg/dL Total Protein 6.0 L (6.3-8.2) g/dL Albumin 2.6 L (3.5-5.0) g/dL 11/18/22 11/18/22 11/18/22 Range/Units 05:30 05:47 12:20 WBC 3.6 L (3.8-10.6) k/uL RBC 3.14 L (4.30-5.90) m/uL Hgb 9.6 L (13.0-17.5) gm/dL Hct 29.3 L (39.0-53.0) % ESR 112 H (0-15) mm/hr Sodium (137-145) mmol/L Glucose (74-99) mg/dL POC Glucose (mg/dL) 123 H 201 H (70-110) mg/dL Calcium (8.4-10.2) mg/dL C-Reactive Protein (<1.0) mg/dL Total Protein (6.3-8.2) g/dL Albumin (3.5-5.0) g/dL Microbiology - Last 24 Hours (Table) 11/14/22 17:40 Blood Culture - Preliminary Blood Assessment and Plan (1) Diabetic foot ulcer Current Visit: Yes Status: Acute Code(s): E11.621 - TYPE 2 DIABETES MELLITUS WITH FOOT ULCER; L97.509 - NON-PRESSURE CHRONIC ULCER OTH PRT UNSP FOOT W UNSP SEVERITY SNOMED Code(s): 240142931 (2) Cellulitis of right foot Current Visit: No Status: Acute Priority: Medium Code(s): L03.115 - CELLULITIS OF RIGHT LOWER LIMB SNOMED Code(s): 706347340 (3) MSSA bacteremia Current Visit: No Status: Acute Code(s): R78.81 - BACTEREMIA; B95.61 - METHICILLIN SUSCEP STAPH INFCT CAUSING DIS CLASSD ELSWHR SNOMED Code(s): 661935387 Plan: 1patient was in the hospital with sepsis in this patient did have fever tachycardia elevated lactic acid source and likely right diabetic foot wound infection and evidence of MSSA bacteremia source is likely diabetic foot infection , repeat blood culture 11/12/2022 as well as 11/14/2022 has been negative so far 2- patient noticed to have worsening redness on the dorsal aspect of the left foot and continued to have a fever for which we obtained CT of the left foot , evidence of tenosynovitis but no drainable abscess podiatry has evaluated the patient and recommended MRI, which did not show any evidence of abscess 3- patient did have resolution of his fever and blood culture had been negative, patient currently waiting for PICC line placement 4-patient to continue with cefazolin and clindamycin, with plan for IV cefazolin 2 g every 8 hours on discharge 6 week and close outpatient follow-up Time with Patient: Less than 30
[2022-11-18] MEDS: HYDROcodone/APAP 5-325MG 1 EACH TAB PO PRN ×2 (14:01→21:03)
[2022-11-18] MEDS ORDERED: LOSARTAN 25 MG TAB PO SCH (14:30)
[2022-11-18] MEDS: OLMESARTAN 20 MG TABLET PO SCH (16:02)
[2022-11-18 17:20] LABS: Glucose,Whole Blood 246 mg/dL (70-110)
--- NOTE | 2022-11-18 21:09 | P.PN ---
Subjective Progress Note Date: 11/18/22 This is a 57 year old male admitted with a diabetic foot ulcer on the right foot pad, foot xray shows concern for osteomyelitis and patient scheduled to undergo a bone scan today. Continues on IV cefazolin and ID is following the patient. Sodium improving with normal saline which is decreased to 100 mls/hr, losartan has been discontinued as blood pressures have been running low/normal. Patient is having 9/10 pain to the right foot and requested additional pain medication. Inflammatory markers are elevated. 11/12/2022 Patient is evaluated today resting in bed, Continues to report pain to the left foot. Underwent bone scan which cannot exclude osteomyelitis involving the left midfoot additional considerations include neuropathic arthropathy. Blood culture prelim showing presumptive staph aureus and repeat is pending and showing gram positive cocci in clusters. Patient continues on IV cefazolin. CT of the left foot has been ordered. T-Max overnight 101.2. Continues with mild elevated LFTs. 11/13/2022 Patient evaluated resting in bed. Left foot is more swollen with area of erythema progressing beyond the border moving into the ankle and mostly along the lateral border of the left foot. There is some superficial blistering appearing on the top of the foot as well. Patient reports increased pain with movement of the foot. Repeat blood cultures showing staph aureus from the and were repeated yesterday as well. Dr Daniel requested to evaluate the patient. Continues on IV cefazolin and IV clindamycin has been added today. Temp 99-7 today. 11/14/2022 Patient resting in bed family at bedside. Left foot is swollen with erythema. María had evaluated the patient and felt patient likely has neuropathic arthropathy and considering I and D with culture with concern for disease soft tissue cellulitis of the left foot. The foot has been wrapped with JOHAN bandage and will be elevated. Follow up blood cultures are so far negative. Continues on cefazolin and clindamycin with microsensitivities. Sodium 135, potassium 3.4, BUN 14, creatinine 0.95. Blood glucose 228, calcium 7.2. Patient remains afebrile, heart rate 68, blood pressure 132/71, 98% room air . 11/15/2022 Patient is evaluated today resting in bed. Left foot has been JOHAN wrapped overnight with minimal reduction in swelling there is significant discoloration along the lateral aspect of the left foot. MRI has been taken requested by Dr Daniel rule out infection vs. Charcot foot exam is currently pending at this [facility]. Local wound care with honey gel and dry gauze to the right halux. Recommendations to apply triad to the left foot if blistering and weeping occur. Repeat blood culture is negative so far. 11/16/2022 MRI of the foot has been taken revealing Charcot arthropathy with midfoot tarsals possible ostial myelitis however this is unlikely there is also evidence of tenosynovitis. Dr Daniel currently not planning any surgical intervention and will continue on IV antibiotics and plans for PICC line placement on Friday. Blood culture f.u negative so far. 11/17/2022 Patient is evaluated today resting in bed. He continues to have swelling to the left foot mostly in the left ankle now. The blister on the top of the foot has popped and is weeping slightly now. patient to have triad cream applied with JOHAN wrap to continue. No plans for surgical intervention and patient to have PICC line placed friday. No other acute complaints at this time. 11/18/2022 Patient is seen and evaluated in follow-up today was initially scheduled to receive a PICC line today although there is no staff to place the PICC line so hopefully for tomorrow with plans of discharging on IV antibiotics therapy. Patient is afebrile with no reports of chest pain or shortness of breath noted. Patient continues with local wound care and will discuss further with infectious disease about discharge planning. Patient is to continue with cefazolin and clindamycin On discharge. Review of Systems Constitutional: Denied any fatigue denied any fever. Cardio vascular: denied any chest pain, palpitations Gastrointestinal: denied any nausea, vomiting, diarrhea Pulmonary: Denied any shortness of breath cough Neurologic: Denied any new focal deficits All inpatient medications were reviewed and appropriate changes in these medications as dictated in the interval history and assessment and plan. PHYSICAL EXAMINATION: GENERAL: The patient is alert and oriented x3, not in any acute distress. Well developed, well nourished. HEENT: Pupils are round and equally reacting to light. EOMI. No scleral icterus. No conjunctival pallor. Normocephalic, atraumatic. No pharyngeal erythema. No thyromegaly. CARDIOVASCULAR: S1 and S2 present. No murmurs, rubs, or gallops. PULMONARY: Chest is clear to auscultation, no wheezing or crackles. ABDOMEN: Soft, nontender, nondistended, normoactive bowel sounds. No palpable organomegaly. MUSCULOSKELETAL: No joint swelling or deformity. EXTREMITIES: No cyanosis, clubbing, or pedal edema. NEUROLOGICAL: Gross neurological examination did not reveal any focal deficits. SKIN: No rashes. Swelling and redness foot pad of the right foot. No drainage. The left foot has increased redness swelling along the lateral aspect and has moved outside of the outline superficial blistering on the top of the foot. The blister has now popped with some serous discharged. there is some improvement in swelling and redness noted Assessment Right foot diabetic ulcer and sepsis /osteomyelitis Bacteremia staph aureus Worsening swelling and erythema to the left foot worsening and this is likely charcot foot due to underlying tenosynovitis /neuropathic arthropathy Mild acute kidney injury secondary to sepsis resolved. Hyponatremia hypovolemic improved. Hepatic steatosis with elevated LFT's, hepatitis panel negative Lactic acidosis from sepsis and likely worsened by metformin use normalized. Diabetes Mellitus type 2 with hyperglycemia GERD Hx of hypertension Former Smoker GI prophylaxis DVT prophylaxis Full Code Plan Continue IV antibiotics, infectious disease following and patient will continue on cefazolin along with clindamycin and currently awaiting to receive a PICC l ine. Was informed there is no PICC line staff today so hopeful for tomorrow Left foot has been JOHAN wrapped and recommending elevation and ice Recommend continue monitoring Accu-Cheks before meals and at bedtime and will continue sliding scale Pain management in place. Patient is awaiting PICC line and then discharge and possible 24 hours The impression and plan of care has been dictated by Alexandria Shoemaker, Nurse Practitioner as directed. Dr. Donte MD I have performed a history and examination and MDM of this patient, discussed the same with the dictator, and agree with the dictator's assessment and plan as written ,documented as a scribe. Based on total visit time, I have performed more than 50% of the visit. Objective - Vital Signs Vital signs: Vital Signs Temp 98.3 F 11/18/22 08:00 Pulse 70 11/18/22 08:00 Resp 16 11/18/22 08:00 BP 145/71 11/18/22 08:00 Pulse Ox 94 L 11/18/22 12:11 FiO2 Intake & Output 11/17/22 11/18/22 11/18/22 18:59 06:59 18:59 Intake Total 120 Balance 120 Intake: Oral 120 Other: # Voids 3 2 - Labs CBC & Chem 7: 11/18/22 05:30 11/18/22 05:30 Labs: Abnormal Lab Results - Last 24 Hours (Table) 11/17/22 11/17/22 11/18/22 Range/Units 17:24 22:17 05:30 WBC (3.8-10.6) k/uL RBC (4.30-5.90) m/uL Hgb (13.0-17.5) gm/dL Hct (39.0-53.0) % ESR (0-15) mm/hr Sodium 136 L (137-145) mmol/L Glucose 123 H (74-99) mg/dL POC Glucose (mg/dL) 206 H 185 H (70-110) mg/dL Calcium 7.7 L (8.4-10.2) mg/dL C-Reactive Protein 5.1 H (<1.0) mg/dL Total Protein 6.0 L (6.3-8.2) g/dL Albumin 2.6 L (3.5-5.0) g/dL 11/18/22 11/18/22 11/18/22 Range/Units 05:30 05:47 12:20 WBC 3.6 L (3.8-10.6) k/uL RBC 3.14 L (4.30-5.90) m/uL Hgb 9.6 L (13.0-17.5) gm/dL Hct 29.3 L (39.0-53.0) % ESR 112 H (0-15) mm/hr Sodium (137-145) mmol/L Glucose (74-99) mg/dL POC Glucose (mg/dL) 123 H 201 H (70-110) mg/dL Calcium (8.4-10.2) mg/dL C-Reactive Protein (<1.0) mg/dL Total Protein (6.3-8.2) g/dL Albumin (3.5-5.0) g/dL Microbiology - Last 24 Hours (Table) 11/12/22 17:23 Blood Culture - Final Blood 11/14/22 17:40 Blood Culture - Preliminary Blood
[2022-11-18 21:52] LABS: Glucose,Whole Blood 253 mg/dL (70-110)
[2022-11-18] MEDS: INSULIN DETEMIR (LEVEMIR) 100 UNIT/ML SYR SQ SCH (22:04)
[2022-11-19 00:21] VITALS: PULSE 70; TEMP 98.4
[2022-11-19] MEDS: CLINDAMYCIN 900 MG in DEXTROSE 5% IN WATER 50 ML IVPB SCH ×4 (00:51→08:52)
[2022-11-19 06:36] LABS: Glucose,Whole Blood 137 mg/dL (70-110)
[2022-11-19] MEDS: INSULIN ASPART (NovoLOG) 100 UNIT/ML VIAL SQ SCH ×4 (06:39→12:37)
[2022-11-19] MEDS: HYDROcodone/APAP 5-325MG 1 EACH TAB PO PRN ×2 (07:31→15:16)
[2022-11-19] MEDS ORDERED: LIDOCAINE 1% INJ 10MG/ML (5 ML VIAL-PF) SQ ONE (08:05)
[2022-11-19 08:23] VITALS: BP 160/80; RESP 16
[2022-11-19] MEDS: OLMESARTAN 20 MG TABLET PO SCH (08:52)
[2022-11-19] MEDS: FAMOTIDINE 20 MG TAB PO SCH (08:52)
[2022-11-19] MEDS: PIOGLITAZONE 30 MG TAB PO SCH (08:52)
[2022-11-19] MEDS: PREGABALIN 100 MG CAP PO SCH (08:52)
[2022-11-19 12:32] LABS: Glucose,Whole Blood 300 mg/dL (70-110)
--- NOTE | 2022-11-19 15:24 | IR ---
PICC LINE PLACEMENT: HISTORY: Infection requiring long-term antibiotic therapy PROCEDURE: Ultrasound and fluoroscopic guidance of PICC line placement. COMPLICATIONS: None ANESTHESIA: 1. 1% Lidocaine locally. FINDINGS/TECHNIQUE: The procedure was explained to the patient. The risks, complications, benefits and alternatives were discussed and any questions were answered. Informed consent was obtained. The patient was placed supine on the fluoroscopic table and prepped and draped in the usual sterile fash ion. Utilizing a 21 gauge needle and sonographic and fluoroscopic guidance, access in the left basi lic vein was achieved and there is placement of a 0.018 guidewire. The vein is patent. A 4-F sheath was placed over the guidewire. The guidewire and dilator were removed and a 4-F. PICC line was plac ed through the sheath with the tip at the level of the SVC. The sheath was removed, the catheter was flushed and sutured into position. The patient was stable throughout the procedure and remained sta ble upon discharge from the Department of Radiology. The vein puncture was patent under ultrasound. A hurt scale image was obtained to document patency of the vein punctured. All elements of the maximal barrier technique were utilized. FLUOROSCOPY TIME: DAP 0.4797Gy cm2 IMPRESSION: Successful PICC line placement under ultrasound and fluoroscopic guidance.
[2022-11-20 05:19] LABS: BUN/Creat Ratio 13.08 Ratio (12.00-20.00); Blood Urea Nitrogen 15.7 mg/dL (9.0-27.0); Calcium 8.2 mg/dL (8.7-10.3); Carbon Dioxide 26.5 mmol/L (21.6-31.8); Chloride 104 mmol/L (96-109); Glucose 141 mg/dL (70-110); Potassium 4.6 mmol/L (3.5-5.5); Sodium 139 mmol/L (135-145)
--- NOTE | 2022-11-20 15:19 | P.DS ---
Providers Date of admission: 11/09/22 16:35 Expected date of discharge: 11/19/22 Attending physician: Toma Mohr Consults: 11/09/22 16:35 Consult Physician Routine Consulting Provider: Clarence Tavares Consult Reason/Comments: Diabetic foot ulcer, evaluate for Osteo Do you want consulting provider notified?: Yes 11/12/22 18:09 Consult Physician Urgent Consulting Provider: Alan Daniel Consult Reason/Comments: abnormal CT left foot Do you want consulting provider notified?: Yes Primary care physician: Jocelynn Castle Hospital Course: Final diagnosis Right foot diabetic ulcer and sepsis /osteomyelitis Bacteremia staph aureus Worsening swelling and erythema to the left foot worsening and this is likely charcot foot due to underlying tenosynovitis /neuropathic arthropathy Mild acute kidney injury secondary to sepsis resolved. Hyponatremia hypovolemic improved. Hepatic steatosis with elevated LFT's, hepatitis panel negative Lactic acidosis from sepsis and likely worsened by metformin use normalized. Diabetes Mellitus type 2 with hyperglycemia GERD Hx of hypertension Former Smoker GI prophylaxis DVT prophylaxis Full Code Discharge disposition Patient is being discharged in a stable condition with guarded prognosis to home with home care. Patient will follow-up with Dr. Cabezas in the outpatient setting upon discharge. Patient is to continue with IV antibiotics in the form of cefazolin 2 g every 8 hours per ID recommendations and close outpatient follow- up with Dr. Tavares as well as the wound care center. Patient also to follow-up with primary care provider and [facility] as scheduled. Total time taken is greater than 35 minutes. Hospital course This is a 57-year-old male who was recently admitted with right diabetic foot ulcer with sepsis and features of osteomyelitis being closely monitored with infectious disease following. Patient was maintained on IV antibiotics also showing some staph aureus in the blood and most recent cultures have been negative. Patient did receive a PICC line and will continue on IV cefazolin 2 g every 8 hours with close outpatient follow-up at the wound care center as well as infectious disease. Patient is being arranged for home care and will be going home today. Strongly encourage the patient for tight glycemic control and close monitoring of blood sugars and keeping a diary of readings for primary care follow-up. Currently no reports of chest pain, shortness of breath, or palpitations. Patient is afebrile. No reports of nausea or vomiting and patient is tolerating diet. Patient will be going home today. Physical exam: Gen: This is a 57-year-old male who is awake, alert and oriented 3, well- developed, well-nourished, obese HEENT: Head is atraumatic, normocephalic. Pupils equal, round. Sclerae is anicteric. NECK: Supple. No JVD. No lymphadenopathy. No thyromegaly. LUNGS: Clear to auscultation. No wheezes or rhonchi. No intercostal retractions. HEART: Regular rate and rhythm. No murmur. ABDOMEN: Soft. Bowel sounds are present. No masses. No tenderness. EXTREMITIES: No pedal edema. No calf tenderness. Right lower extremity currently dressed and dry NEUROLOGICAL: Patient is awake, alert and oriented x3. Cranial nerves 2 through 12 are grossly intact. Please refer to medication reconciliation sheet for a list of medications. The impression and plan of care has been dictated by Alexandria Shoemaker, Nurse Practitioner as directed. Dr. Donte MD I have performed a history and examination and MDM of this patient, discussed the same with the dictator, and agree with the dictator's assessment and plan as written ,documented as a scribe. Based on total visit time, I have performed more than 50% of the visit. Patient Condition at Discharge: Fair Plan - Discharge Summary New Discharge Prescriptions: New Pregabalin [Lyrica] 100 mg PO BID #6 cap Ibuprofen [Motrin] 400 mg PO Q6HR PRN tab PRN Reason: Fever Acetaminophen Tab [Tylenol] 650 mg PO Q6HR PRN tab PRN Reason: Mild Pain Or Fever > 100.5 ceFAZolin [Kefzol] 2 gm IVP Q8HR #126 each HYDROcodone/APAP 5-325MG [[place] 5-325] 1 each PO Q6HR PRN #9 tab PRN Reason: Pain Famotidine [Pepcid] 20 mg PO BID 15 Days #30 tab Continue metFORMIN HCL [Glucophage] 1,250 mg PO BID Olmesartan [Benicar] 20 mg PO DAILY Pioglitazone [Actos] 30 mg PO DAILY Discharge Medication List Olmesartan [Benicar] 20 mg PO DAILY 02/17/15 [History] metFORMIN HCL [Glucophage] 1,250 mg PO BID 02/17/15 [History] Pioglitazone [Actos] 30 mg PO DAILY 11/09/22 [History] ceFAZolin [Kefzol] 2 gm IVP Q8HR #126 each 11/17/22 [Rx] Acetaminophen Tab [Tylenol] 650 mg PO Q6HR PRN tab 11/19/22 [Rx] Famotidine [Pepcid] 20 mg PO BID 15 Days #30 tab 11/19/22 [Rx] HYDROcodone/APAP 5-325MG [[place] 5-325] 1 each PO Q6HR PRN #9 tab 11/19/22 [Rx] Ibuprofen [Motrin] 400 mg PO Q6HR PRN tab 11/19/22 [Rx] Pregabalin [Lyrica] 100 mg PO BID #6 cap 11/19/22 [Rx] Follow up Appointment(s)/Referral(s): Corrine Cabezas MD [Primary Care Provider] - 1-2 days [facility], [NON-STAFF] - 1 Week ([facility] will call you to arrange a visit) [facility] [NON-STAFF] - 1 Week ([facility] will be your infusion provider) [facility] [NON-STAFF] - 1 Week Clarence Tavares MD [STAFF PHYSICIAN] - 11/26/22 3:15 pm Ambulatory/Diagnostic Orders: Basic Metabolic Panel [LAB.AMB] Location: None Selected C Reactive Protein [LAB.AMB] Location: None Selected Complete Blood Count w/diff [LAB.AMB] Location: None Selected Erythrocyte Sedimentation Rate [LAB.AMB] Location: None Selected Patient Instructions/Handouts: Diabetic Foot Ulcers (DC) Activity/Diet/Wound Care/Special Instructions: Activity Limited until follow-up Follow-up with wound care center along with infectious disease outpatient Continue antibiotic recommendations per ID Follow-up primary care provider on discharge Continue to monitor blood sugars closely and keep a diary of all readings Continue diabetic diet Continue local wound care Discharge Disposition: HOME WITH HOME HEALTH SERVICES
== END 2022-11-19 16:07 | disposition home health service (06) | DRG 872 ==
LOC: EC 13:02 → 4SSUR 16:35 → 6NMEDSUR 19:08
PROVIDERS: ADMIT Internal Medicine; ATTEND Internal Medicine
PROC: 02HV33Z Insertion of Infusion Device into Superior Vena Cava, Percutaneous Approach (ICD-10-PCS; principal; 2022-11-19 08:25)
DX: A41.01 Sepsis due to Methicillin susceptible Staphylococcus aureus (principal); E87.1 Hypo-osmolality and hyponatremia; L03.115 Cellulitis of right lower limb; L03.116 Cellulitis of left lower limb; N17.9 Acute kidney failure, unspecified; A52.16 Charcot's arthropathy (tabetic); E11.40 Type 2 diabetes mellitus with diabetic neuropathy, unspecified; E11.621 Type 2 diabetes mellitus with foot ulcer; E11.628 Type 2 diabetes mellitus with other skin complications; E11.69 Type 2 diabetes mellitus with other specified complication; L97.514 Non-pressure chronic ulcer of other part of right foot with necrosis of bone; E11.610 Type 2 diabetes mellitus with diabetic neuropathic arthropathy; E66.9 Obesity, unspecified; Z68.33 Body mass index [BMI] 33.0-33.9, adult; L97.529 Non-pressure chronic ulcer of other part of left foot with unspecified severity; I10 Essential (primary) hypertension; E86.1 Hypovolemia; M65.171 Other infective (teno)synovitis, right ankle and foot; K76.0 Fatty (change of) liver, not elsewhere classified; M83.9 Adult osteomalacia, unspecified; R65.20 Severe sepsis without septic shock; E87.5 Hyperkalemia; Z28.311 Partially vaccinated for COVID-19; Z28.21 Immunization not carried out because of patient refusal; S91.341S Puncture wound with foreign body, right foot, sequela; K21.9 Gastro-esophageal reflux disease without esophagitis; Z79.2 Long term (current) use of antibiotics; Z79.84 Long term (current) use of oral hypoglycemic drugs; Z79.899 Other long term (current) drug therapy; Z87.891 Personal history of nicotine dependence; Z71.3 Dietary counseling and surveillance; Z88.1 Allergy status to other antibiotic agents; Z88.0 Allergy status to penicillin; Z86.14 Personal history of Methicillin resistant Staphylococcus aureus infection
CPT/HCPCS: 36415; 36573; 71046; 76700; 78315; 80048; 80053; 80074; 81001; 82009; 83036; 83605; 85025; 85610; 85652; 85730; 86140; 87040; 87077; 87186; 93005; 94760; 96361; 96365; 96366; 99291

== ENCOUNTER 2022-12-01 09:12 | Inpatient (IN) | payer BC ==
[2022-12-01] MEDS ORDERED: IPRATROPIUM-ALBUTEROL 3 ML NEB INHALATION STA (09:30)
--- NOTE | 2022-12-01 10:08 | ED ---
SOB HPI - General Chief Complaint: Shortness of Breath Stated Complaint: TOD Time Seen by Provider: 12/01/22 09:21 Source: patient, RN notes reviewed Mode of arrival: wheelchair Limitations: no limitations - History of Present Illness Initial Comments: This is a 57-year-old male who presents to the emergency department for shortness of breath. Patient was discharged here on 11/19 after a 10 day admission for osteomyelitis and sepsis to the left foot. He does continue on IV cefazolin through his PICC line. States that about 5 days ago, he started to develop difficulty breathing. This is fairly constant throughout the day, but worse at night. He has minor associated chest pain from trying to take a deep breath. Denies any coughing. He has also started to feel nauseous. Denies any history of COPD, asthma, or other respiratory illnesses. He is also not a smoker. Unsure if he has a history of blood clots. Denies any fevers, chills, sore throat, cough, palpitations, abdominal pain, vomiting, diarrhea, back pain, or headaches. MD Complaint: shortness of breath, cough, chest pain Onset/Timin -: days(s) - Related Data Home Medications Medication Instructions Recorded Confirmed Olmesartan [Benicar] 40 mg PO DAILY 02/17/15 12/01/22 metFORMIN HCL [Glucophage] 1,000 mg PO BID 02/17/15 12/01/22 Pioglitazone [Actos] 30 mg PO DAILY@1700 11/09/22 12/01/22 Acetaminophen Tab [Tylenol Tab] 500 mg PO Q6H PRN 12/01/22 12/01/22 Ondansetron [Zofran] 4 mg PO Q8HR 12/01/22 12/01/22 metFORMIN HCL [Glucophage] 500 mg PO DAILY@1700 12/01/22 12/01/22 Previous Rx's Medication Instructions Recorded ceFAZolin [Kefzol] 2 gm IVP Q8HR #126 each 11/17/22 Allergies Allergy/AdvReac Type Severity Reaction Status Date / Time levofloxacin [From Levaquin] Allergy Swelling, Verified 12/01/22 09:18 RASH Penicillins Allergy Unknown Verified 12/01/22 09:18 Childhood Review of Systems ROS Statement: Those systems with pertinent positive or pertinent negative responses have been documented in the HPI. ROS Other: All systems not noted in ROS Statement are negative. Past Medical History Past Medical History: Diabetes Mellitus, GERD/Reflux, Hypertension Additional Past Medical History / Comment(s): osteomyelitis and pain left foot, stepped on kristen nail October 2018,hx neuropathy History of Any Multi-Drug Resistant Organisms: MRSA Date of last positivie culture/infection: march 2022 MDRO Source:: toe Past Surgical History: Tonsillectomy Additional Past Surgical History / Comment(s): endoscopy, middle toe rt foot removed ,lft 2nd toe tip removed Past Anesthesia/Blood Transfusion Reactions: No Reported Reaction Past Psychological History: No Psychological Hx Reported Smoking Status: Former smoker Past Alcohol Use History: None Reported Past Drug Use History: None Reported - Past Family History Mother Family Medical History: Cancer Additional Family Medical History / Comment(s): breast cancer Father Family Medical History: Cancer Additional Family Medical History / Comment(s): lung cancer Sister(s) Family Medical History: Cancer Additional Family Medical History / Comment(s): lung cancer General Exam Limitations: no limitations General appearance: alert, in no apparent distress Head exam: Present: atraumatic, normocephalic, normal inspection Respiratory exam: Present: normal lung sounds bilaterally. Absent: respiratory distress, wheezes, rales, rhonchi, stridor Cardiovascular Exam: Present: regular rate, normal rhythm, normal heart sounds. Absent: systolic murmur, diastolic murmur, rubs, gallop, clicks Neurological exam: Present: alert, oriented X3, CN II-XII intact Psychiatric exam: Present: normal affect, normal mood Skin exam: Present: warm, dry, intact, normal color. Absent: rash Course Vital Signs 12/01/22 12/01/22 12/01/22 09:14 09:17 10:36 Temperature 98.7 F Pulse Rate 109 H 96 Respiratory 20 22 Rate Blood Pressure 172/94 O2 Sat by Pulse 97 Oximetry 12/01/22 12/01/22 12/01/22 10:47 11:09 12:47 Temperature 98.7 F Pulse Rate 94 59 L 100 Respiratory 22 18 Rate Blood Pressure 160/89 151/85 O2 Sat by Pulse 93 L 97 Oximetry Medical Decision Making - Medical Decision Making This is a 57-year-old male who presents to the emergency department for shortness of breath. Was pt. sent in by a medical professional or institution? @ -No Did you speak to anyone other than the patient for history? @ -No Did you review nursing and triage notes? @ -Yes, and I agree, it is accurate with regards to the patient's symptoms. Were old charts reviewed? @ -No Differential Diagnosis? @ -Differential Dyspnea: Coronary syndrome, arrhythmia, tamponade, asthma, COPD, pulmonary embolism, pneumonia, pneumothorax, pulmonary effusion, anaphylaxis, diabetic ketoacidosis, flailed chest, pulmonary contusion, diaphragmatic rupture, anemia, neuromuscular, this is not meant to be an all-inclusive list. EKG interpreted by me (3pts min.)? @ -EKG interpreted by me demonstrating the following: Sinus tachycardia. Ventricular rate 102 bpm, CO interval 132 ms, QRS duration 88 ms, QTC 422 ms. X-rays interpreted by me (1pt min.)? @ -Chest x-ray obtained, my interpretation identifies no localized consolidations or infiltrates. CT interpreted by me (1pt min.)? @ -CTA of the chest obtained. My interpretation identifies bilateral pleural effusions. U/S interpreted by me (1pt. min.)? @ -Not obtained What testing was considered but not performed? (CT, X-rays, U/S, labs)? Why? @ -None What meds were considered but not given? Why? @ -None Did you discuss the management of the patient with other professionals? @ -Yes, Dr. Mckeon, who accepts the patient for admission. Did you reconcile home meds? @ -Yes Was smoking cessation discussed for >3mins.? @ -No Was critical care preformed (if so, how long)? @ -No Were there social determinants of health that impacted care today? How? (Homelessness, low income, unemployed, alcoholism, drug addiction, transportati on, low edu. Level, literacy, decrease access to med. care, retirement, rehab)? @ -No Was there de-escalation of care discussed even if they declined? (Discuss DNR or withdrawal of care, Hospice)? @ -No What co-morbidities impacted this encounter? (DM, HTN, Smoking, COPD, CAD, Cancer, CVA, Hep., AIDS, mental health diagnosis, sleep apnea, morbid obesity)? @ -DM, HTN Was patient admitted / discharged? @ -Admitted. Chest x-ray obtained revealing no acute process. He was given a DuoNeb breathing treatment with no improvement in symptoms. Lab work obtained revealing an elevated d-dimer at 1.85 and elevated troponin of 0.098. CTA of the chest was subsequently obtained. This revealed no evidence of a pulmonary embolus, but did identify large bilateral pleural effusions. BNP was subsequently ordered, and found to be 21,900. Symptoms and workup consistent with new onset CHF. 40 mg IV Lasix administered. Patient admitted to medicine with cardiology consult for further management. Undiagnosed new problem with uncertain prognosis? @ -None Drug Therapy requiring intensive monitoring for toxicity (Heparin, Nitro, Insulin, Cardizem)? @ -None Were any procedures done? @ -None Diagnosis/symptom? @ -Dyspnea, New onset CHF Acute, or Chronic, or Acute on Chronic? @ -Acute Uncomplicated (without systemic symptoms) or Complicated (systemic symptoms)? @ -Complicated Side effects of treatment? @ -None Exacerbation, Progression, or Severe Exacerbation] @ -Not applicable Poses a threat to life or bodily function? @ -Yes This case was discussed in detail with the attending ED physician, Dr. Hernández. Presentation, findings, and treatment plan discussed in detail as well. - Lab Data Result diagrams: 12/01/22 10:03 12/01/22 10:03 Lab Results 12/01/22 12/01/22 12/01/22 Range/Units 10:03 10:03 10:03 WBC 5.6 (3.8-10.6) k/uL RBC 3.56 L (4.30-5.90) m/uL Hgb 11.1 L (13.0-17.5) gm/dL Hct 33.2 L (39.0-53.0) % MCV 93.3 (80.0-100.0) fL MCH 31.2 (25.0-35.0) pg MCHC 33.5 (31.0-37.0) g/dL RDW 14.4 (11.5-15.5) % Plt Count 195 (150-450) k/uL MPV 7.5 Neutrophils % 64 % Lymphocytes % 28 % Monocytes % 5 % Eosinophils % 1 % Basophils % 0 % Neutrophils # 3.6 (1.3-7.7) k/uL Lymphocytes # 1.6 (1.0-4.8) k/uL Monocytes # 0.3 (0-1.0) k/uL Eosinophils # 0.1 (0-0.7) k/uL Basophils # 0.0 (0-0.2) k/uL PT 11.7 (9.0-12.0) sec INR 1.1 (<1.2) APTT 22.9 (22.0-30.0) sec D-Dimer 1.85 H (<0.60) mg/L FEU Sodium 136 L (137-145) mmol/L Potassium 4.5 (3.5-5.1) mmol/L Chloride 104 (98-107) mmol/L Carbon Dioxide 22 (22-30) mmol/L Anion Gap 10 mmol/L BUN 10 (9-20) mg/dL Creatinine 1.07 (0.66-1.25) mg/dL Est GFR (CKD-EPI)AfAm >90 (>60 ml/min/1.73 sqM) Est GFR (CKD-EPI)NonAf 78 (>60 ml/min/1.73 sqM) Glucose 166 H (74-99) mg/dL Plasma Lactic Acid Andrey (0.7-2.0) mmol/L Calcium 8.2 L (8.4-10.2) mg/dL Magnesium 1.3 L (1.6-2.3) mg/dL Total Bilirubin 0.7 (0.2-1.3) mg/dL AST 22 (17-59) U/L ALT 15 (4-49) U/L Alkaline Phosphatase 93 (38-126) U/L Troponin I (0.000-0.034) ng/mL NT-Pro-B Natriuret Pep pg/mL Total Protein 6.6 (6.3-8.2) g/dL Albumin 3.3 L (3.5-5.0) g/dL Influenza Type A (PCR) (Not Detectd) Influenza Type B (PCR) (Not Detectd) RSV (PCR) (Not Detectd) SARS-CoV-2 (PCR) (Not Detectd) 12/01/22 12/01/22 12/01/22 Range/Units 10:03 10:03 10:03 WBC (3.8-10.6) k/uL RBC (4.30-5.90) m/uL Hgb (13.0-17.5) gm/dL Hct (39.0-53.0) % MCV (80.0-100.0) fL MCH (25.0-35.0) pg MCHC (31.0-37.0) g/dL RDW (11.5-15.5) % Plt Count (150-450) k/uL MPV Neutrophils % % Lymphocytes % % Monocytes % % Eosinophils % % Basophils % % Neutrophils # (1.3-7.7) k/uL Lymphocytes # (1.0-4.8) k/uL Monocytes # (0-1.0) k/uL Eosinophils # (0-0.7) k/uL Basophils # (0-0.2) k/uL PT (9.0-12.0) sec INR (<1.2) APTT (22.0-30.0) sec D-Dimer (<0.60) mg/L FEU Sodium (137-145) mmol/L Potassium (3.5-5.1) mmol/L Chloride (98-107) mmol/L Carbon Dioxide (22-30) mmol/L Anion Gap mmol/L BUN (9-20) mg/dL Creatinine (0.66-1.25) mg/dL Est GFR (CKD-EPI)AfAm (>60 ml/min/1.73 sqM) Est GFR (CKD-EPI)NonAf (>60 ml/min/1.73 sqM) Glucose (74-99) mg/dL Plasma Lactic Acid Andrey 1.3 (0.7-2.0) mmol/L Calcium (8.4-10.2) mg/dL Magnesium (1.6-2.3) mg/dL Total Bilirubin (0.2-1.3) mg/dL AST (17-59) U/L ALT (4-49) U/L Alkaline Phosphatase (38-126) U/L Troponin I 0.098 H* (0.000-0.034) ng/mL NT-Pro-B Natriuret Pep pg/mL Total Protein (6.3-8.2) g/dL Albumin (3.5-5.0) g/dL Influenza Type A (PCR) Not Detected (Not Detectd) Influenza Type B (PCR) Not Detected (Not Detectd) RSV (PCR) Not Detected (Not Detectd) SARS-CoV-2 (PCR) Not Detected (Not Detectd) 12/01/22 Range/Units 13:50 WBC (3.8-10.6) k/uL RBC (4.30-5.90) m/uL Hgb (13.0-17.5) gm/dL Hct (39.0-53.0) % MCV (80.0-100.0) fL MCH (25.0-35.0) pg MCHC (31.0-37.0) g/dL RDW (11.5-15.5) % Plt Count (150-450) k/uL MPV Neutrophils % % Lymphocytes % % Monocytes % % Eosinophils % % Basophils % % Neutrophils # (1.3-7.7) k/uL Lymphocytes # (1.0-4.8) k/uL Monocytes # (0-1.0) k/uL Eosinophils # (0-0.7) k/uL Basophils # (0-0.2) k/uL PT (9.0-12.0) sec INR (<1.2) APTT (22.0-30.0) sec D-Dimer (<0.60) mg/L FEU Sodium (137-145) mmol/L Potassium (3.5-5.1) mmol/L Chloride (98-107) mmol/L Carbon Dioxide (22-30) mmol/L Anion Gap mmol/L BUN (9-20) mg/dL Creatinine (0.66-1.25) mg/dL Est GFR (CKD-EPI)AfAm (>60 ml/min/1.73 sqM) Est GFR (CKD-EPI)NonAf (>60 ml/min/1.73 sqM) Glucose (74-99) mg/dL Plasma Lactic Acid Andrey (0.7-2.0) mmol/L Calcium (8.4-10.2) mg/dL Magnesium (1.6-2.3) mg/dL Total Bilirubin (0.2-1.3) mg/dL AST (17-59) U/L ALT (4-49) U/L Alkaline Phosphatase (38-126) U/L Troponin I (0.000-0.034) ng/mL NT-Pro-B Natriuret Pep 14418 pg/mL Total Protein (6.3-8.2) g/dL Albumin (3.5-5.0) g/dL Influenza Type A (PCR) (Not Detectd) Influenza Type B (PCR) (Not Detectd) RSV (PCR) (Not Detectd) SARS-CoV-2 (PCR) (Not Detectd) - Radiology Data Radiology results: report reviewed, image reviewed Disposition Clinical Impression: Dyspnea, Elevated troponin, New onset of congestive heart failure Disposition: ADMITTED IP TO THIS HOSP
[2022-12-01] MEDS ORDERED: METOCLOPRAMIDE 5 MG/ML 2 ML VIAL IVP STA (10:21)
--- NOTE | 2022-12-01 10:21 | XR ---
EXAMINATION TYPE: XR chest 2V DATE OF EXAM: 12/01/2022 COMPARISON: None INDICATION: Difficulty in breathing TECHNIQUE: Frontal and lateral views of the chest are obtained. FINDINGS: The heart size is normal. The pulmonary vasculature is somewhat prominent. The lungs are clear. IMPRESSION: 1. Correlate for early volume overload
[2022-12-01 10:22] LABS: Basophils % (A) 0 %; Eosinophils # (A) 0.1 k/uL (0-0.7); Eosinophils % (A) 1 %; HCT 33.2 % (39.0-53.0); HGB 11.1 gm/dL (13.0-17.5); Lymphocytes # (A) 1.6 k/uL (1.0-4.8); Lymphocytes % (A) 28 %; MCH 31.2 pg (25.0-35.0); MCHC 33.5 g/dL (31.0-37.0); MCV 93.3 fL (80.0-100.0); Mean Platelet Volume 7.5; Monocytes # (A) 0.3 k/uL (0-1.0); Monocytes % (A) 5 %; Neutrophils # (A) 3.6 k/uL (1.3-7.7); Neutrophils % (A) 64 %; Platelet Count 195 k/uL (150-450); RBC 3.56 m/uL (4.30-5.90); RDW 14.4 % (11.5-15.5); WBC 5.6 k/uL (3.8-10.6)
[2022-12-01 10:32] LABS: ALT 15 U/L (4-49); AST 22 U/L (17-59); African American GFR (CKD) >90 (>60 ml/min/1.73 sqM); Albumin 3.3 g/dL (3.5-5.0); Alkaline Phosphatase 93 U/L (38-126); Anion Gap 10 mmol/L; Blood Urea Nitrogen 10 mg/dL (9-20); Calcium 8.2 mg/dL (8.4-10.2); Carbon Dioxide 22 mmol/L (22-30); Chloride 104 mmol/L (98-107); Glucose 166 mg/dL (74-99); Magnesium 1.3 mg/dL (1.6-2.3); Non-African American GFR(CKD) 78 (>60 ml/min/1.73 sqM); Potassium 4.5 mmol/L (3.5-5.1); Sodium 136 mmol/L (137-145); Total Bilirubin 0.7 mg/dL (0.2-1.3); Total Protein 6.6 g/dL (6.3-8.2)
[2022-12-01 10:38] LABS: INR 1.1 (<1.2); Partial Thromboplastin Time 22.9 sec (22.0-30.0); Prothrombin Time 11.7 sec (9.0-12.0)
[2022-12-01] MEDS ORDERED: ONDANSETRON 4 MG/2 ML VIAL IVP STA (10:58)
--- NOTE | 2022-12-01 14:39 | CT ---
EXAMINATION TYPE: CT chest angio for PE DATE OF EXAM: 12/01/2022 COMPARISON: None HISTORY: elevated d-dimer CT DLP: 877.4 mGycm Automated exposure control for dose reduction was used. CONTRAST: CT Chest for pulmonary embolism performed with with IV Contrast, patient injected with 100 mL of Isov ue 370. FINDINGS: There are large bilateral pleural effusions. There is mild lower lobe atelectasis adjacent to the pleural fluid. There is no airspace consolidatio n or abnormal interstitial density. There is no pneumothorax. The great vessels chest are normal and there is no mediastinal, hilar or axillary adenopathy. Pulmonary arteries and segmental branches are well opacified and there are no filling defects to sugg est pulmonary embolism. There is mild cardiomegaly. No focal osseous lesions are seen. Limited scanning the upper abdomen reveals no gross abnormality. IMPRESSION: 1. No evidence of pulmonary embolus. 2. Large bilateral pleural effusions and mild bibasilar atelectasis.
[2022-12-01] MEDS ORDERED: FUROSEMIDE 10 MG/ML 4 ML VIAL IV STA (15:08)
[2022-12-01] MEDS ORDERED: NALOXONE 0.4 MG/ML 1 ML VIAL IV PRN (15:12)
[2022-12-01] MEDS ORDERED: MORPHINE SULFATE 4 MG/ML SYRINGE IV PRN (15:12)
[2022-12-01] MEDS ORDERED: HYDROcodone/APAP 5-325MG 1 EACH TAB PO PRN (15:12)
[2022-12-01] MEDS ORDERED: NON FORMULARY DRUG (Cefazolin 2 GM/20 ML Each) IVP SCH (17:15)
[2022-12-01] MEDS ORDERED: ASPIRIN 81 MG PO STA (18:00)
--- NOTE | 2022-12-01 18:14 | P.HPIM ---
History of Present Illness He is off his old male with past medical history of diabetes mellitus, hypertension, GERD. PCP is Dr. Trevino He was recently discharged from hospital for osteomyelitis of the left foot. Presents because of for some dyspnea over several days but 5 days, associated with some cough associated with agreed and white phlegm. and discomfort in the chest chest pain only with cough. Also patient has diarrhea for the last 5 days and since his been discharged from. Patient still complaining of from left leg and foot swelling and infection. He denies any urinary symptoms, no neurological symptoms. He denies smoking alcohol or illicit drugs. Patient is afebrile and vitals are stable. Blood pressure is elevated off the high side He has unremarkable CBC except for mild anemia at 11.1. INR 1.1. D-dimer elevated 1.85. BNP under enzymes are unremarkable Troponin elevated 0.09 and 0.08. ProBNP is significantly elevated 82010. Viruses and detected including influenza, RSV, coronavirus Chest x-ray: Correlate for volume overload CTA of the chest revealed no pulmonary embolism but his large bilateral pleural effusion and mild bibasilar atelectasis EKG showing sinus tachycardia [address]-T changes Review of Systems Review of systems CONSTITUTIONAL: No fever, no malaise, no fatigue. HEENT: No recent visual problems or hearing problems. Denied any sore throat. CARDIOVASCULAR: No orthopnea, PND, no palpitations, no syncope. PULMONARY: No chest wall tenderness, no hemoptysis. GASTROINTESTINAL: No diarrhea, no nausea, no vomiting, no abdominal pain. Normoactive bowel sounds. NEUROLOGICAL: No headaches, no weakness, no numbness. HEMATOLOGICAL: Denies any bleeding or petechiae. GENITOURINARY: Denies any burning micturition, frequency, or urgency. MUSCULOSKELETAL/RHEUMATOLOGICAL: Denies any joint pain, swelling, or any muscle pain. ENDOCRINE: Denies any polyuria or polydipsia. Past Medical History Past Medical History: Diabetes Mellitus, GERD/Reflux, Hypertension Additional Past Medical History / Comment(s): osteomyelitis and pain left foot, stepped on kristen nail October 2018,hx neuropathy History of Any Multi-Drug Resistant Organisms: MRSA Date of last positivie culture/infection: march 2022 MDRO Source:: toe Past Surgical History: Tonsillectomy Additional Past Surgical History / Comment(s): endoscopy, middle toe rt foot removed ,lft 2nd toe tip removed Past Anesthesia/Blood Transfusion Reactions: No Reported Reaction Past Psychological History: No Psychological Hx Reported Smoking Status: Former smoker Past Alcohol Use History: None Reported Past Drug Use History: None Reported - Past Family History Mother Family Medical History: Cancer Additional Family Medical History / Comment(s): breast cancer Father Family Medical History: Cancer Additional Family Medical History / Comment(s): lung cancer Sister(s) Family Medical History: Cancer Additional Family Medical History / Comment(s): lung cancer Medications and Allergies Home Medications Medication Instructions Recorded Confirmed Type Olmesartan [Benicar] 40 mg PO DAILY 02/17/15 12/01/22 History metFORMIN HCL [Glucophage] 1,000 mg PO BID 02/17/15 12/01/22 History Pioglitazone [Actos] 30 mg PO DAILY@1700 11/09/22 12/01/22 History ceFAZolin [Kefzol] 2 gm IVP Q8HR #126 each 11/17/22 12/01/22 Rx Acetaminophen Tab [Tylenol Tab] 500 mg PO Q6H PRN 12/01/22 12/01/22 History Ondansetron [Zofran] 4 mg PO Q8HR 12/01/22 12/01/22 History metFORMIN HCL [Glucophage] 500 mg PO DAILY@1700 12/01/22 12/01/22 History Allergies Allergy/AdvReac Type Severity Reaction Status Date / Time levofloxacin [From Levaquin] Allergy Swelling, Verified 12/01/22 09:18 RASH Penicillins Allergy Unknown Verified 12/01/22 09:18 Childhood Physical Exam Vitals: Vital Signs Temp Pulse Resp BP Pulse Ox 12/01/22 12:47 98.7 F 100 18 151/85 97 12/01/22 11:09 59 L 22 160/89 93 L 12/01/22 10:47 94 12/01/22 10:36 96 12/01/22 09:17 22 12/01/22 09:14 98.7 F 109 H 20 172/94 97 Intake and Output 12/01/22 12/01/22 12/01/22 06:59 14:59 22:59 Other: Weight 136.078 kg -GENERAL: The patient is alert and oriented x3, not in any acute distress. Obese HEENT: Pupils are round and equally reacting to light. EOMI. No scleral icterus. No conjunctival pallor. Normocephalic, atraumatic. No pharyngeal erythema. No thyromegaly. CARDIOVASCULAR: S1 and S2 present. No murmurs, rubs, or gallops. -PULMONARY: Chest is clear to auscultation, no wheezing . no crackles. Decreased breath sounds on both sides ABDOMEN: Soft, nontender, nondistended, normoactive bowel sounds. No palpable organomegaly. MUSCULOSKELETAL: No joint swelling or deformity. -EXTREMITIES: No cyanosis, clubbing, . No leg edema. Left foot infection with a dressing in place NEUROLOGICAL: Gross neurological examination did not reveal any focal deficits. -SKIN: No rashes. no petechiae. Results CBC & Chem 7: 12/01/22 10:12/01/22 10:03 Labs: Abnormal Lab Results - Last 24 Hours (Table) 12/01/22 12/01/22 12/01/22 Range/Units 10: 10:03 10:03 RBC 3.56 L (4.30-5.90) m/uL Hgb 11.1 L (13.0-17.5) gm/dL Hct 33.2 L (39.0-53.0) % D-Dimer 1.85 H (<0.60) mg/L FEU Sodium 136 L (137-145) mmol/L Glucose 166 H (74-99) mg/dL Calcium 8.2 L (8.4-10.2) mg/dL Magnesium 1.3 L (1.6-2.3) mg/dL Troponin I (0.000-0.034) ng/mL Albumin 3.3 L (3.5-5.0) g/dL 12/01/22 12/01/22 Range/Units 10:03 16:07 RBC (4.30-5.90) m/uL Hgb (13.0-17.5) gm/dL Hct (39.0-53.0) % D-Dimer (<0.60) mg/L FEU Sodium (137-145) mmol/L Glucose (74-99) mg/dL Calcium (8.4-10.2) mg/dL Magnesium (1.6-2.3) mg/dL Troponin I 0.098 H* 0.081 H* (0.000-0.034) ng/mL Albumin (3.5-5.0) g/dL Assessment and Plan Assessment: Acute CHF unknown ejection fraction Bilateral pleural effusion most likely secondary to above Mildly elevated troponin secondary to above Hypertension, uncontrolled, present on admission steomyelitis and pain left foot, recent from this facility on antibiotic Diabetes Mellitus History of GERD/Reflux obesity with BMI of 34.7 Plan: Continue with IV Lasix 40 twice daily Start aspirin 3241 and then 81 daily Metoprolol 25 mg Check echo of heart Cardiologic consult Check ESR and CRP Continue with antibiotic Labs and medication were reviewed.. Continue same treatment. Continue with symptomatic treatment. Resume home medication. Monitor labs and vitals. DVT and GI prophylaxis. Further recommendations as per clinical course of the patient DVT prophylaxis: Subcutaneous heparin GI Prophylaxis: Pepcid PT/OT: Pending Prognosis is guarded
[2022-12-01] MEDS ORDERED: METOPROLOL TARTRATE 25 MG TAB PO SCH ×2 (18:15)
[2022-12-01] MEDS ORDERED: DEXTROSE 50% SYRINGE 50 ML IVP PRN ×2 (18:31)
[2022-12-01] MEDS ORDERED: Magnesium Replacement Protocol 1 EACH MISC MISCELLANE PRN (18:44)
[2022-12-01] MEDS: FUROSEMIDE 10 MG/ML 4 ML VIAL IV SCH ×2 (18:46→20:55)
--- NOTE | 2022-12-01 19:20 | US ---
EXAMINATION TYPE: US venous doppler duplex LE BI DATE OF EXAM: 12/01/2022 6:01 PM COMPARISON: 03/21/2018 CLINICAL INDICATION: Male, 57 years old with history of leg swelling; Inpatient. No redness. Bilate ral swelling. Patient states having left foot infection. Patient states he is on blood thinners. SIDE PERFORMED: Bilateral TECHNIQUE: The lower extremity deep venous system is examined utilizing real time linear array sonog eladio with graded compression, doppler sonography and color-flow sonography. VESSELS IMAGED: Common Femoral Vein Deep Femoral Vein Greater Saphenous Vein * Femoral Vein Popliteal Vein Small Saphenous Vein * Proximal Calf Veins (* superficial vessels) Subcutaneous edema seen within the bilateral lower extremities Right Leg: Negative for DVT Grayscale, color doppler, spectral doppler imaging performed of the deep veins of the lower extremiti es. There is normal flow, compressibility, vascular waveforms. Left Leg: Negative for DVT Grayscale, color doppler, spectral doppler imaging performed of the deep veins of the lower extremiti es. There is normal flow, compressibility, vascular waveforms. IMPRESSION: 1. No evidence for deep vein thrombosis of the bilateral lower extremities. 2. Simultaneous edema bilaterally.
[2022-12-01] MEDS: MAGNESIUM SULFATE-D5W PMX 1 GM in DEXTROSE/WATER 1 100ML.BAG IVPB SCH ×4 (19:26→23:21)
[2022-12-01 20:07] LABS: Glucose,Whole Blood 198 mg/dL (70-110)
[2022-12-01] MEDS: metFORMIN 500 MG TAB PO SCH (20:54)
[2022-12-01] MEDS: ATORVASTATIN 20 MG TAB PO SCH (20:54)
[2022-12-01] MEDS: FAMOTIDINE 20 MG TAB PO SCH (20:55)
[2022-12-01] MEDS: INSULIN ASPART (NovoLOG) 100 UNIT/ML VIAL SQ SCH (20:55)
[2022-12-01] MEDS: HEPARIN SODIUM,PORCINE/PF 5,000 UNIT/0.5 ML SYRINGE SQ SCH (20:56)
[2022-12-01] MEDS ORDERED: FAMOTIDINE 20 MG/2 ML VIAL IV SCH (21:00)
[2022-12-02] MEDS: ONDANSETRON 4 MG/2 ML VIAL IVP PRN ×2 (03:19→17:14)
[2022-12-02 06:13] LABS: Glucose,Whole Blood 168 mg/dL (70-110)
[2022-12-02] MEDS: INSULIN ASPART (NovoLOG) 100 UNIT/ML VIAL SQ SCH ×4 (06:27→22:05)
[2022-12-02] MEDS ORDERED: HEPARIN SODIUM 1,000 UN/ML (10ML VL) IV ONE (08:13)
[2022-12-02] MEDS: LOSARTAN 50 MG TAB PO SCH (08:31)
[2022-12-02] MEDS: FUROSEMIDE 10 MG/ML 4 ML VIAL IV SCH ×2 (08:31→22:04)
[2022-12-02] MEDS: FAMOTIDINE 20 MG TAB PO SCH ×2 (08:31→22:04)
[2022-12-02] MEDS: ASPIRIN 81 MG PO SCH (08:31)
[2022-12-02] MEDS: HEPARIN SOD,PORK IN 0.45% NACL 25,000 UNIT in 0.45% NACL 1 250ML.BAG IV SCH (08:32)
[2022-12-02] MEDS: carvediloL 6.25 MG TAB PO SCH ×2 (08:35→17:16)
[2022-12-02] MEDS: metFORMIN 500 MG TAB PO SCH ×3 (08:38→22:04)
[2022-12-02] MEDS: HEPARIN SODIUM,PORCINE/PF 5,000 UNIT/0.5 ML SYRINGE SQ SCH ×2 (08:38→22:04)
[2022-12-02] MEDS ORDERED: LOSARTAN 50 MG TAB PO SCH (09:00)
[2022-12-02 10:17] LABS: Basophils % (A) 0 %; Eosinophils # (A) 0.1 k/uL (0-0.7); Eosinophils % (A) 2 %; HCT 31.6 % (39.0-53.0); HGB 10.5 gm/dL (13.0-17.5); Lymphocytes # (A) 1.9 k/uL (1.0-4.8); Lymphocytes % (A) 38 %; MCH 30.2 pg (25.0-35.0); MCHC 33.2 g/dL (31.0-37.0); MCV 91.2 fL (80.0-100.0); Mean Platelet Volume 7.6; Monocytes # (A) 0.3 k/uL (0-1.0); Monocytes % (A) 6 %; Neutrophils # (A) 2.5 k/uL (1.3-7.7); Neutrophils % (A) 50 %; Platelet Count 192 k/uL (150-450); RBC 3.46 m/uL (4.30-5.90); RDW 14.6 % (11.5-15.5)
[2022-12-02 10:25] LABS: INR 1.2 (<1.2); Prothrombin Time 12.1 sec (9.0-12.0)
--- NOTE | 2022-12-02 10:28 | P.CRDCN ---
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 He has a history of diabetes mellitus type 2, hypertension. We have been asked to evaluate the patient for bilateral pleural effusions and elevated troponins. Patient was recently hospitalized and discharged on 11/19 for osteomyelitis and discharged on IV antibiotics. Patient states he developed chest pain and pressure along with difficulty breathing and been going on for about 6 days. He had dyspnea with exertion and when he was laying flat. He also has lower extremity edema on the left leg only which is the leg affected by osteomyelitis. He describes the pain as a burning type in his chest more so when he lays flat [place] is on his chest. He states he does not have pain with exertion. No lightheadedness or dizziness. He has had weight gain. He states he is not normally active. Patient is status post magnesium replacement and IV Lasix 40 mg 1. Regarding diabetes, patient has been diabetic for 20 years with an A1c of 7.8. He denies any history of smoking. He states his mother has history of cardiac disease. EKG sinus rhythm with nonspecific changes in the inferior leads Chest x-ray: Correlate for early volume overload. CT angiogram of the chest revealed no evidence of pulmonary embolism. Large bilateral pleural effusions with mild bibasilar atelectasis. WBC 5.6, hemoglobin 0.1, platelet count 195. INR 1.1. D-dimer 1.85. Sodium 136, potassium 4.5, BUN 10 and creatinine 1.07. Glucose 166. Lactic acid 1.3. Magnesium 1.3. Liver function tests normal. Troponins 0.098, 0.081, 0.077. ProBNP 21,900. Influenza A, influenza B, RSV, Covid 19 undetectable. Home cardiac medications: Benicar 40 mg daily Review Of Systems: At the time of my evaluation: Constitutional: No fever, no chills. No weakness, fatigue or lethargy. EENT: No headache. No dizziness. Lungs: Reports shortness of breath, cough, no sputum production. No wheezing. Cardiovascular: Reports chest pain, reports left lower extremity edema. No palpitations. No paroxysmal nocturnal dyspnea. Reports orthopnea. No lightheadedness or dizziness. No syncopal episodes. Abdominal: No abdominal pain. No nausea, vomiting. No diarrhea. Musculoskeletal: No myalgias. No muscle weakness, no frequent falls. Integumentary: Left foot wound. Neurologic: No aphasia. No facial droop. No change in mentation. No head injury. No headache. Physical examination: Gen: This is a 57-year-old male resting in bed. VS: reviewed blood pressure 163/95, heart rate 113. Pulse ox 95% on room air, afebrile. HEENT: Head is atraumatic, normocephalic. Pupils equal, round. Sclerae is anicteric. NECK: Supple. No JVD. . LUNGS: Diminished with bilateral crackles No intercostal retractions. HEART: Regular rate and rhythm. No murmur. ABDOMEN: Soft EXTREMITIES: left leg edema. Dressing to left foot. NEUROLOGICAL: Patient is awake, alert and oriented x3. Assessment: Acute heart failure Elevated troponins, acute coronary syndrome ruled out Elevated troponins possible due to heart failure, possible NSTEMI Uncontrolled HTN DMT2 OM left foot Plan: Continue Lasix 40 mg IV every 12 hours, monitor I&O, daily weights, electrolytes and renal function Start patient on Heparin drip Change BB to Coreg 6.25 mg bid Change Losartan dose to 100 mg daily Obtain 2-D echocardiogram and Doppler study to assess cardiac structure and function Obtain Lipid panel Further recommendations to follow based upon clinical course Thank you kindly for this consultation. Nurse practitioner note has been reviewed, I agree with documented findings and plan of care. Patient was seen and examined. Past Medical History Past Medical History: Diabetes Mellitus, GERD/Reflux, Hypertension Additional Past Medical History / Comment(s): osteomyelitis and pain left foot, stepped on kristen nail October 2018,hx neuropathy History of Any Multi-Drug Resistant Organisms: MRSA Date of last positivie culture/infection: march 2022 MDRO Source:: toe Past Surgical History: Tonsillectomy Additional Past Surgical History / Comment(s): endoscopy, middle toe rt foot removed ,lft 2nd toe tip removed Past Anesthesia/Blood Transfusion Reactions: No Reported Reaction Past Psychological History: No Psychological Hx Reported Smoking Status: Former smoker Past Alcohol Use History: None Reported Past Drug Use History: None Reported - Past Family History Mother Family Medical History: Cancer Additional Family Medical History / Comment(s): breast cancer Father Family Medical History: Cancer Additional Family Medical History / Comment(s): lung cancer Sister(s) Family Medical History: Cancer Additional Family Medical History / Comment(s): lung cancer Medications and Allergies Home Medications Medication Instructions Recorded Confirmed Type Olmesartan [Benicar] 40 mg PO DAILY 02/17/15 12/01/22 History metFORMIN HCL [Glucophage] 1,000 mg PO BID 02/17/15 12/01/22 History Pioglitazone [Actos] 30 mg PO DAILY@1700 11/09/22 12/01/22 History ceFAZolin [Kefzol] 2 gm IVP Q8HR #126 each 11/17/22 12/01/22 Rx Acetaminophen Tab [Tylenol Tab] 500 mg PO Q6H PRN 12/01/22 12/01/22 History Ondansetron [Zofran] 4 mg PO Q8HR 12/01/22 12/01/22 History metFORMIN HCL [Glucophage] 500 mg PO DAILY@1700 12/01/22 12/01/22 History Allergies Allergy/AdvReac Type Severity Reaction Status Date / Time levofloxacin [From Levaquin] Allergy Swelling, Verified 12/01/22 09:18 RASH Penicillins Allergy Unknown Verified 12/01/22 09:18 Childhood Physical Exam Vitals: Vital Signs Temp Pulse Pulse Resp BP BP Pulse Ox 12/02/22 04:00 101 H 18 165/86 95 12/02/22 02:00 18 12/02/22 00:00 93 18 168/87 96 12/01/22 20:00 98.1 F 100 18 159/84 95 12/01/22 17:48 97.8 F 105 H 18 161/105 97 12/01/22 12:47 98.7 F 100 18 151/85 97 12/01/22 11:09 59 L 22 160/89 93 L 12/01/22 10:47 94 12/01/22 10:36 96 12/01/22 09:17 22 12/01/22 09:14 98.7 F 109 H 20 172/94 97 Intake and Output 12/01/22 12/02/22 12/02/22 22:59 06:59 14:59 Output Total 1100 Balance -1100 Output: Urine 1100 Other: Voiding Method Toilet Toilet Urinal Urinal Weight 136.078 kg 135.4 kg Results 12/01/22 10:03 12/01/22 10:03 Cardiac Enzymes 12/01/22 12/01/22 12/01/22 Range/Units 10:03 10:03 16:07 AST 22 (17-59) U/L Troponin I 0.098 H* 0.081 H* (0.000-0.034) ng/mL 12/01/22 Range/Units 19:15 AST (17-59) U/L Troponin I 0.077 H* (0.000-0.034) ng/mL Coagulation 12/01/22 Range/Units 10:03 PT 11.7 (9.0-12.0) sec APTT 22.9 (22.0-30.0) sec CBC 12/01/22 Range/Units 10:03 WBC 5.6 (3.8-10.6) k/uL RBC 3.56 L (4.30-5.90) m/uL Hgb 11.1 L (13.0-17.5) gm/dL Hct 33.2 L (39.0-53.0) % Plt Count 195 (150-450) k/uL Comprehensive Metabolic Panel 12/01/22 Range/Units 10:03 Sodium 136 L (137-145) mmol/L Potassium 4.5 (3.5-5.1) mmol/L Chloride 104 (98-107) mmol/L Carbon Dioxide 22 (22-30) mmol/L BUN 10 (9-20) mg/dL Creatinine 1.07 (0.66-1.25) mg/dL Glucose 166 H (74-99) mg/dL Calcium 8.2 L (8.4-10.2) mg/dL AST 22 (17-59) U/L ALT 15 (4-49) U/L Alkaline Phosphatase 93 (38-126) U/L Total Protein 6.6 (6.3-8.2) g/dL Albumin 3.3 L (3.5-5.0) g/dL Current Medications Generic Name Dose Route Start Last Admin Trade Name Freq PRN Reason Stop Dose Admin Acetaminophen 650 mg 12/01/22 15:12 Acetaminophen Tab 325 Mg Tab PO Q6HR PRN Mild Pain or Fever > 100.5 Hydrocodone Bitart/Acetaminophen 1 each 12/01/22 15:12 Hydrocodone/Apap 5-325mg 1 Each Tab PO Q4HR PRN Moderate Pain (Scale 4 to 6) Aspirin 81 mg 12/02/22 09:00 Aspirin 81 Mg PO DAILY MOOSE Atorvastatin Calcium 20 mg 12/01/22 21:00 12/01/22 20:54 Atorvastatin 20 Mg Tab PO 20 mg HS MOOSE Administration Dextrose/Water 25 ml 12/01/22 18:31 Dextrose 50% Syringe 50 Ml IVP PER PROTOCOL PRN Hypoglycemia Protocol Dextrose/Water 50 ml 12/01/22 18:31 Dextrose 50% Syringe 50 Ml IVP PER PROTOCOL PRN Hypoglycemia Protocol Famotidine 20 mg 12/01/22 21:00 12/01/22 20:55 Famotidine 20 Mg Tab PO 20 mg BID MOOSE Administration Furosemide 40 mg 12/01/22 18:00 12/01/22 20:55 Furosemide 10 Mg/Ml 4 Ml Vial IV 40 mg Q12HR MOOSE Administration Heparin Sodium (Porcine) 5,000 unit 12/01/22 21:00 12/01/22 20:56 Heparin Sodium,Porcine/Pf 5,000 Unit/0.5 Ml Syringe SQ 5,000 unit Q12HR MOOSE Administration Cefazolin Sodium 2 gm/ Sodium 50 mls @ 100 mls/hr 12/02/22 00:00 12/02/22 01:13 Chloride IVPB 100 mls/hr Q8HR MOOSE Administration Insulin Aspart 0 unit 12/01/22 21:00 12/02/22 06:27 Insulin Aspart (Novolog) 100 Unit/Ml Vial SQ 1 unit ACHS MOOSE Administration Protocol Losartan Potassium 150 mg 12/02/22 09:00 Losartan 50 Mg Tab PO DAILY MOOSE Metformin HCl 500 mg 12/02/22 17:00 Metformin 500 Mg Tab PO DAILY@1700 MOOSE Metformin HCl 1,000 mg 12/01/22 21:00 12/01/22 20:54 Metformin 500 Mg Tab PO 1,000 mg BID MOOSE Administration Metoprolol Tartrate 25 mg 12/01/22 18:15 12/01/22 18:46 Metoprolol Tartrate 25 Mg Tab PO 25 mg BID MOOSE Administration Miscellaneous Information 1 each 12/01/22 18:44 Magnesium Replacement Protocol 1 Each Misc MISCELLANE DAILY PRN Per Protocol Protocol Morphine Sulfate 4 mg 12/01/22 15:12 Morphine Sulfate 4 Mg/Ml Syringe IV Q4HR PRN Severe Pain (Scale 7 to 10) Naloxone HCl 0.2 mg 12/01/22 15:12 Naloxone 0.4 Mg/Ml 1 Ml Vial IV Q2M PRN Opioid Reversal Ondansetron HCl 4 mg 12/01/22 15:12 12/02/22 03:19 Ondansetron 4 Mg/2 Ml Vial IVP 4 mg Q8HR PRN Administration Nausea And Vomiting Intake and Output 12/01/22 12/02/22 12/02/22 22:59 06:59 14:59 Output Total 1100 Balance -1100 Output: Urine 1100 Other: Voiding Method Toilet Toilet Urinal Urinal Weight 136.078 kg 135.4 kg 12/01/22 10:03 12/01/22 10:03
[2022-12-02 10:52] LABS: African American GFR (CKD) >90 (>60 ml/min/1.73 sqM); Anion Gap 10 mmol/L; Blood Urea Nitrogen 11 mg/dL (9-20); Calcium 7.8 mg/dL (8.4-10.2); Carbon Dioxide 22 mmol/L (22-30); Chloride 104 mmol/L (98-107); Glucose 166 mg/dL (74-99); Magnesium 1.7 mg/dL (1.6-2.3); Non-African American GFR(CKD) 80 (>60 ml/min/1.73 sqM); Potassium 4.4 mmol/L (3.5-5.1); Sodium 136 mmol/L (137-145)
[2022-12-02 11:09] LABS: C Reactive Protein 2.6 mg/dL (<1.0)
[2022-12-02 11:17] LABS: Erythrocyte Sedimentation Rate 58 mm/hr (0-15)
[2022-12-02 11:24] LABS: Glucose,Whole Blood 179 mg/dL (70-110)
[2022-12-02 16:03] LABS: Glucose,Whole Blood 186 mg/dL (70-110)
[2022-12-02] MEDS ORDERED: PIOGLITAZONE 30 MG TAB PO SCH (17:00)
[2022-12-02] MEDS: HEPARIN SODIUM 1,000 UN/ML (10ML VL) IV PRN (17:33)
--- NOTE | 2022-12-02 19:28 | CA ---
Transthoracic Echo Report Name: Kelby Mckee Age: 57 Gender: M : 1965 Exam Date: 12/02/2022 10:26 Exam Location: [facility] Ht (in): 78 Wt (lb): 298 Ordering Physician: Louis Mckeon MD Attending/Referring Phys: [id number], Linda Investigator Claims Jose Chaney Procedure CPT: Indications: Rule out heart disease Cardiac Hx: Technical Quality: Technically difficult study Contrast 1: Lumason Total Dose (mL): 5 Contrast 2: Agitated Saline Total Dose (mL): 10 MEASUREMENTS (Male / Female) Normal Values FINDINGS Left Ventricle Normal LV size and wall thickness. Left ventricular ejection fraction is estimated at 40-45%. Right Ventricle Normal right ventricular size. RVSP= 45mmhg. Right Atrium Normal right atrial size. Left Atrium Normal left atrial size. Mitral Valve Thickened mitral valve without stenosis. Severe MR. Aortic Valve Not well visualized , grossly normal.no aortic valve stenosis or regurgitation. Tricuspid Valve Tricuspid valve not well visualized. Mild to moderate TR. Pulmonic Valve Pulmonic valve not well visualized. No pulmonic regurgitation. Pericardium Pericardial effusion. Aorta Normal size aortic root and proximal ascending aorta. CONCLUSIONS Normal LV size with reduced LV systolic function of 40% Moderate pulmonary hypertension Evidence of pericarditis with fibrinous material along the anterior pericardium Thickened posterior pericardial 3-4+ MR Previewed by: Dr. Henry Eli MD (Electronically Signed) Final Date: 02 December 2022 19:28
[2022-12-02 20:09] LABS: Glucose,Whole Blood 184 mg/dL (70-110)
--- NOTE | 2022-12-02 20:18 | P.PN ---
Subjective He is off his old male with past medical history of diabetes mellitus, hypertension, GERD. PCP is Dr. Trevino He was recently discharged from hospital for osteomyelitis of the left foot. Presents because of for some dyspnea over several days but 5 days, associated with some cough associated with agreed and white phlegm. and discomfort in the chest chest pain only with cough. Also patient has diarrhea for the last 5 days and since his been discharged from. Patient still complaining of from left leg and foot swelling and infection. He denies any urinary symptoms, no neurological symptoms. He denies smoking alcohol or illicit drugs. Patient is afebrile and vitals are stable. Blood pressure is elevated off the high side He has unremarkable CBC except for mild anemia at 11.1. INR 1.1. D-dimer elevated 1.85. BNP under enzymes are unremarkable Troponin elevated 0.09 and 0.08. ProBNP is significantly elevated 31326. Viruses and detected including influenza, RSV, coronavirus Chest x-ray: Correlate for volume overload CTA of the chest revealed no pulmonary embolism but his large bilateral pleural effusion and mild bibasilar atelectasis EKG showing sinus tachycardia [address]-T changes 12/02/2022 Patient lying in bed with multiple in distress is still complaining of from dyspnea but is not walking much. He denies any chest pain. No other new complaint Patient blood pressure is better controlled after adding beta og which he seems to correlate by cardiology team Patient remains on IV Lasix 40 mg twice daily heparin drip was added by cardiology team and continued on aspirin 81 mg which is a home dose. After this was discontinued. ESR and CRP are elevated 58 and 2.6 respectively. Patient has an aunt os teomyelitis of the left foot on antibiotic we are going to consult infectious disease team Objective - Vital Signs Vital signs: Vital Signs Temp 97.7 F 12/02/22 15:55 Pulse 95 12/02/22 15:55 Resp 16 12/02/22 15:55 BP 148/98 12/02/22 15:55 Pulse Ox 92 L 12/02/22 15:55 FiO2 Intake & Output 12/02/22 12/02/22 12/03/22 06:59 18:59 06:59 Intake Total 224.742 Output Total 1100 850 Balance -1100 -625.258 Weight 135.4 kg Intake: Intake, IV Titration 106.742 Amount Heparin Sod,Pork in 0.45% 106.742 NaCl 25,000 unit In 0.45 % NaCl 1 250ml.bag @ 7. 385 UNITS/KG/HR 9.999 mls /hr IV .Q24H [facility] Rx#: [id number] Oral 118 Output: Urine 1100 850 Other: Voiding Method Toilet Toilet Urinal Urinal - Labs CBC & Chem 7: 12/02/22 09:47 12/02/22 09:47 Labs: Abnormal Lab Results - Last 24 Hours (Table) 12/01/22 12/02/22 12/02/22 Range/Units 19:15 06:11 09:47 RBC (4.30-5.90) m/uL Hgb (13.0-17.5) gm/dL Hct (39.0-53.0) % ESR (0-15) mm/hr PT (9.0-12.0) sec INR (<1.2) APTT (22.0-30.0) sec Sodium (137-145) mmol/L Glucose (74-99) mg/dL POC Glucose (mg/dL) 168 H (70-110) mg/dL Hemoglobin A1c (<=6.0) % Calcium (8.4-10.2) mg/dL Troponin I 0.077 H* (0.000-0.034) ng/mL C-Reactive Protein (<1.0) mg/dL Procalcitonin 0.16 H (0.02-0.09) ng/mL 12/02/22 12/02/22 12/02/22 Range/Units 09:47 09:47 09:47 RBC 3.46 L (4.30-5.90) m/uL Hgb 10.5 L (13.0-17.5) gm/dL Hct 31.6 L (39.0-53.0) % ESR 58 H (0-15) mm/hr PT (9.0-12.0) sec INR (<1.2) APTT (22.0-30.0) sec Sodium 136 L (137-145) mmol/L Glucose 166 H (74-99) mg/dL POC Glucose (mg/dL) (70-110) mg/dL Hemoglobin A1c 7.0 H (<=6.0) % Calcium 7.8 L (8.4-10.2) mg/dL Troponin I (0.000-0.034) ng/mL C-Reactive Protein 2.6 H (<1.0) mg/dL Procalcitonin (0.02-0.09) ng/mL 12/02/22 12/02/22 12/02/22 Range/Units 09:47 11:23 16:02 RBC (4.30-5.90) m/uL Hgb (13.0-17.5) gm/dL Hct (39.0-53.0) % ESR (0-15) mm/hr PT 12.1 H (9.0-12.0) sec INR 1.2 H (<1.2) APTT 36.0 H (22.0-30.0) sec Sodium (137-145) mmol/L Glucose (74-99) mg/dL POC Glucose (mg/dL) 179 H 186 H (70-110) mg/dL Hemoglobin A1c (<=6.0) % Calcium (8.4-10.2) mg/dL Troponin I (0.000-0.034) ng/mL C-Reactive Protein (<1.0) mg/dL Procalcitonin (0.02-0.09) ng/mL 12/02/22 Range/Units 20:08 RBC (4.30-5.90) m/uL Hgb (13.0-17.5) gm/dL Hct (39.0-53.0) % ESR (0-15) mm/hr PT (9.0-12.0) sec INR (<1.2) APTT (22.0-30.0) sec Sodium (137-145) mmol/L Glucose (74-99) mg/dL POC Glucose (mg/dL) 184 H (70-110) mg/dL Hemoglobin A1c (<=6.0) % Calcium (8.4-10.2) mg/dL Troponin I (0.000-0.034) ng/mL C-Reactive Protein (<1.0) mg/dL Procalcitonin (0.02-0.09) ng/mL Assessment and Plan Assessment: Acute CHF unknown ejection fraction Bilateral pleural effusion most likely secondary to above Mildly elevated troponin secondary to above Hypertension, uncontrolled, present on admission steomyelitis and pain left foot, recent from this facility on antibiotic Diabetes Mellitus History of GERD/Reflux obesity with BMI of 34.7 Plan: Started on heparin drip Continue with IV Lasix 40 twice daily Start aspirin 3241 and then 81 daily Continue with Coreg 6.5 mg Check echo of heart Cardiologic consult Consult infectious disease team Continue with antibiotic currently on cefazolin Labs and medication were reviewed.. Continue same treatment. Continue with symptomatic treatment. Resume home medication. Monitor labs and vitals. DVT and GI prophylaxis. Further recommendations as per clinical course of the patient DVT prophylaxis: heparin GI Prophylaxis: Pepcid PT/OT: Home health care Prognosis is guarded
[2022-12-02] MEDS: ATORVASTATIN 20 MG TAB PO SCH (22:04)
--- NOTE | 2022-12-02 22:40 | P.CONS ---
History of Present Illness - Reason for Consult Consult date: 12/02/22 - History of Present Illness Patient is a 57-year-old male with a past medical history significant for diabetes mellitus recent admission to the hospital and the patient was diagnosed with a left foot tenosynovitis and did have a MSSA bacteremia repeat blood cultures were negative MRI did not show any abscess and podiatry recommended against any surgical intervention patient did get a PICC line and was advised 6-day course of IV cefazolin and oral Flagyl patient is presenting back to [facility] ER for evaluation of shortness of breath symptom has been getting worse for about 5 days before presentation to the hospital with worsening shortness of breath and also have some chest pain especially taking deep breath did have occasional cough but no sputum production also has nausea but no vomiting with the symptoms the patient has been evaluated on arrival to the ER patient was afebrile and no fever have been recorded subsequently patient did have a normal white count sed rate of 58 D-dimer 1.85 BUN and creatinine has been normal troponin was elevated liver enzymes are normal influenza RSV and C OVID testing has been negative patient did have a chest x-ray correlate for early volume overload CT angiogram of the chest was negative for PE did show large bilateral effusion and mild bibasilar atelectasis cardiology has been consulted patient did have a echocardiogram with a EF of 40 to 45% moderate pulmonary hypertension and evidence of pericarditis with fibrinous material along the anterior pericardium no mention of any vegetation patient has been continued on cefazolin infectious disease was consulted for further management of antibiotic therapy, the patient left foot swelling redness has much improved and discomfort has decreased in intensity as well Past Medical History Past Medical History: Diabetes Mellitus, GERD/Reflux, Hypertension Additional Past Medical History / Comment(s): osteomyelitis and pain left foot, stepped on kristen nail October 2018,hx neuropathy History of Any Multi-Drug Resistant Organisms: MRSA Year Discovered:: march 2022 MDRO Source:: toe Past Surgical History: Tonsillectomy Additional Past Surgical History / Comment(s): endoscopy, middle toe rt foot removed ,lft 2nd toe tip removed Past Anesthesia/Blood Transfusion Reactions: No Reported Reaction Past Psychological History: No Psychological Hx Reported Smoking Status: Former smoker Past Alcohol Use History: None Reported Past Drug Use History: None Reported - Past Family History Mother Family Medical History: Cancer Additional Family Medical History / Comment(s): breast cancer Father Family Medical History: Cancer Additional Family Medical History / Comment(s): lung cancer Sister(s) Family Medical History: Cancer Additional Family Medical History / Comment(s): lung cancer Medications and Allergies Home Medications Medication Instructions Recorded Confirmed Type Olmesartan [Benicar] 40 mg PO DAILY 02/17/15 12/01/22 History metFORMIN HCL [Glucophage] 1,000 mg PO BID 02/17/15 12/01/22 History Pioglitazone [Actos] 30 mg PO DAILY@1700 11/09/22 12/01/22 History ceFAZolin [Kefzol] 2 gm IVP Q8HR #126 each 11/17/22 12/01/22 Rx Acetaminophen Tab [Tylenol Tab] 500 mg PO Q6H PRN 12/01/22 12/01/22 History Ondansetron [Zofran] 4 mg PO Q8HR 12/01/22 12/01/22 History metFORMIN HCL [Glucophage] 500 mg PO DAILY@1700 12/01/22 12/01/22 History Allergies Allergy/AdvReac Type Severity Reaction Status Date / Time levofloxacin [From Levaquin] Allergy Swelling, Verified 12/01/22 09:18 RASH Penicillins Allergy Unknown Verified 12/01/22 09:18 Childhood Physical Exam Vitals: Vital Signs Temp Pulse Resp BP Pulse Ox 12/02/22 13:43 102 H 18 12/02/22 12:00 97.6 F 102 H 18 152/83 95 12/02/22 08:00 98.4 F 113 H 18 163/95 95 12/02/22 04:00 101 H 18 165/86 95 12/02/22 02:00 18 12/02/22 00:00 93 18 168/87 96 12/01/22 20:00 98.1 F 100 18 159/84 95 12/01/22 17:48 97.8 F 105 H 18 161/105 97 Intake and Output 12/01/22 12/02/22 12/02/22 22:59 06:59 14:59 Intake Total 140.664 Output Total 1100 850 Balance -1100 -709.336 Intake: Intake, IV Titration 22.664 Amount Heparin Sod,Pork in 0.45% 22.664 NaCl 25,000 unit In 0.45 % NaCl 1 250ml.bag @ 7. 385 UNITS/KG/HR 9.999 mls /hr IV .Q24H [facility] Rx#: [id number] Oral 118 Output: Urine 1100 850 Other: Voiding Method Toilet Toilet Toilet Urinal Urinal Urinal Weight 136.078 kg 135.4 kg Results CBC & Chem 7: 12/02/22 09:47 12/02/22 09:47 Labs: Abnormal Lab Results - Last 24 Hours (Table) 12/01/22 12/01/22 12/01/22 Range/Units 16:07 19:15 20:06 RBC (4.30-5.90) m/uL Hgb (13.0-17.5) gm/dL Hct (39.0-53.0) % ESR (0-15) mm/hr PT (9.0-12.0) sec INR (<1.2) APTT (22.0-30.0) sec Sodium (137-145) mmol/L Glucose (74-99) mg/dL POC Glucose (mg/dL) 198 H (70-110) mg/dL Calcium (8.4-10.2) mg/dL Troponin I 0.081 H* 0.077 H* (0.000-0.034) ng/mL C-Reactive Protein (<1.0) mg/dL 12/02/22 12/02/22 12/02/22 Range/Units 06:11 09:47 09:47 RBC 3.46 L (4.30-5.90) m/uL Hgb 10.5 L (13.0-17.5) gm/dL Hct 31.6 L (39.0-53.0) % ESR 58 H (0-15) mm/hr PT (9.0-12.0) sec INR (<1.2) APTT (22.0-30.0) sec Sodium 136 L (137-145) mmol/L Glucose 166 H (74-99) mg/dL POC Glucose (mg/dL) 168 H (70-110) mg/dL Calcium 7.8 L (8.4-10.2) mg/dL Troponin I (0.000-0.034) ng/mL C-Reactive Protein 2.6 H (<1.0) mg/dL 12/02/22 12/02/22 Range/Units 09:47 11:23 RBC (4.30-5.90) m/uL Hgb (13.0-17.5) gm/dL Hct (39.0-53.0) % ESR (0-15) mm/hr PT 12.1 H (9.0-12.0) sec INR 1.2 H (<1.2) APTT 36.0 H (22.0-30.0) sec Sodium (137-145) mmol/L Glucose (74-99) mg/dL POC Glucose (mg/dL) 179 H (70-110) mg/dL Calcium (8.4-10.2) mg/dL Troponin I (0.000-0.034) ng/mL C-Reactive Protein (<1.0) mg/dL Assessment and Plan Plan: 1patient with recent admission to the hospital with left diabetic foot infection with evidence of tenosynovitis and MSSA bacteremia patient seem to have shown clinical response to the cefazolin now presented to hospital with increasing shortness of breath and did have evidence of bilateral effusion and concern for pericardial fusion and pericarditis for which cardiology is following the patient 2-blood cultures will be repeated 3-continue with the cefazolin 2 g every 8 hours We will follow on clinical condition and cultures to further adjust medication if needed Thank you for this consultation we will follow the patient along with you Time with Patient: Greater than 30
[2022-12-03] MEDS: HEPARIN SOD,PORK IN 0.45% NACL 25,000 UNIT in 0.45% NACL 1 250ML.BAG IV SCH ×2 (00:27→12:09)
[2022-12-03] MEDS: HEPARIN SODIUM 1,000 UN/ML (10ML VL) IV PRN ×3 (00:27→12:12)
[2022-12-03] MEDS: ONDANSETRON 4 MG/2 ML VIAL IVP PRN (04:34)
[2022-12-03 06:28] LABS: Glucose,Whole Blood 177 mg/dL (70-110)
[2022-12-03 06:32] LABS: Glucose,Whole Blood 185 mg/dL (70-110)
[2022-12-03] MEDS: INSULIN ASPART (NovoLOG) 100 UNIT/ML VIAL SQ SCH ×4 (06:32→22:14)
[2022-12-03] MEDS: carvediloL 6.25 MG TAB PO SCH (06:32)
[2022-12-03 06:38] LABS: INR 1.1 (<1.2); Partial Thromboplastin Time 39.7 sec (22.0-30.0); Prothrombin Time 11.7 sec (9.0-12.0)
[2022-12-03 06:45] LABS: Basophils % (A) 0 %; Eosinophils # (A) 0.1 k/uL (0-0.7); Eosinophils % (A) 2 %; HCT 31.6 % (39.0-53.0); HGB 10.6 gm/dL (13.0-17.5); Lymphocytes # (A) 1.8 k/uL (1.0-4.8); Lymphocytes % (A) 33 %; MCH 31.1 pg (25.0-35.0); MCHC 33.4 g/dL (31.0-37.0); MCV 93.3 fL (80.0-100.0); Mean Platelet Volume 7.9; Monocytes # (A) 0.3 k/uL (0-1.0); Monocytes % (A) 6 %; Neutrophils # (A) 3.1 k/uL (1.3-7.7); Neutrophils % (A) 56 %; Platelet Count 198 k/uL (150-450); RBC 3.39 m/uL (4.30-5.90); RDW 14.5 % (11.5-15.5); WBC 5.5 k/uL (3.8-10.6)
[2022-12-03] MEDS ORDERED: METOCLOPRAMIDE 5 MG/ML 2 ML VIAL IVP STA (09:28)
[2022-12-03] MEDS: FAMOTIDINE 20 MG TAB PO SCH ×2 (09:34→21:35)
[2022-12-03] MEDS: metFORMIN 500 MG TAB PO SCH ×3 (09:34→21:35)
[2022-12-03] MEDS: ASPIRIN 81 MG PO SCH (09:34)
[2022-12-03] MEDS: LOSARTAN 50 MG TAB PO SCH (09:34)
[2022-12-03] MEDS: FUROSEMIDE 10 MG/ML 4 ML VIAL IV SCH ×2 (09:35→21:34)
[2022-12-03] MEDS: HEPARIN SODIUM,PORCINE/PF 5,000 UNIT/0.5 ML SYRINGE SQ SCH ×2 (09:35→16:03)
[2022-12-03] MEDS ORDERED: carvediloL 6.25 MG TAB PO STA (10:27)
[2022-12-03 11:18] LABS: LDL Cholesterol,Calculated 21.2 mg/dL (0.0-131.0)
[2022-12-03 11:31] LABS: Glucose,Whole Blood 173 mg/dL (70-110)
--- NOTE | 2022-12-03 13:37 | P.PN ---
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 He has a history of diabetes mellitus type 2, hypertension. We have been asked to evaluate the patient for bilateral pleural effusions and elevated troponins. Patient was recently hospitalized and discharged on 11/19 for osteomyelitis and discharged on IV antibiotics. Patient states he developed chest pain and pressure along with difficulty breathing and been going on for ab out 6 days. He had dyspnea with exertion and when he was laying flat. He also has lower extremity edema on the left leg only which is the leg affected by osteomyelitis. He describes the pain as a burning type in his chest more so when he lays flat [place] is on his chest. He states he does not have pain with exertion. No lightheadedness or dizziness. He has had weight gain. He states he is not normally active. Patient is status post magnesium replacement and IV Lasix 40 mg 1. Regarding diabetes, patient has been diabetic for 20 years with an A1c of 7.8. He denies any history of smoking. He states his mother has history of cardiac disease. EKG sinus rhythm with nonspecific changes in the inferior leads Chest x-ray: Correlate for early volume overload. CT angiogram of the chest revealed no evidence of pulmonary embolism. Large bilateral pleural effusions with mild bibasilar atelectasis. WBC 5.6, hemoglobin 0.1, platelet count 195. INR 1.1. D-dimer 1.85. Sodium 136, potassium 4.5, BUN 10 and creatinine 1.07. Glucose 166. Lactic acid 1.3. Magnesium 1.3. Liver function tests normal. Troponins 0.098, 0.081, 0.077. ProBNP 21,900. Influenza A, influenza B, RSV, Covid 19 undetectable. Home cardiac medications: Benicar 40 mg daily 12/03 Patient is seen today in follow-up. Echocardiogram revealed EF of 40% with moderate pulmonary hypertension, pericarditis. The pressure 159/92, heart rate 103. Patient has been on heparin drip and yesterday metoprolol was changed to Coreg to better control blood pressure. He is continued on IV Lasix 40 mg every 12 hours. Negative balance of 1960 mL. BMP ordered for tomorrow Physical examination: Gen: This is a 57-year-old male resting in bed. VS: reviewed blood pressure 163/95, heart rate 113. Pulse ox 95% on room air, afebrile. HEENT: Head is atraumatic, normocephalic. Pupils equal, round. Sclerae is anicteric. NECK: Supple. No JVD. . LUNGS: Diminished with bilateral crackles No intercostal retractions. HEART: Regular rate and rhythm. No murmur. ABDOMEN: Soft EXTREMITIES: left leg edema. Dressing to left foot. NEUROLOGICAL: Patient is awake, alert and oriented x3. Assessment: Acute heart failure Elevated troponins possible due to heart failure, possible NSTEMI Uncontrolled HTN DMT2 OM left foot Plan: Continue Lasix 40 mg IV every 12 hours, monitor I&O, daily weights, electrolytes and renal function Discontinue heparin drip and start patient on subcu heparin Increase Coreg to 12.5 mg bid Continue Losartan dose to 100 mg daily Cardiac workup with cardiac catheterization will need to be addressed once patient's osteomyelitis is resolved. Further recommendations to follow based upon clinical course Nurse practitioner note has been reviewed, I agree with documented findings and plan of care. Patient was seen and examined. Objective - Vital Signs Vital signs: Vital Signs Temp 97.6 F 12/02/22 20:00 Pulse 103 H 12/03/22 04:00 Resp 18 12/03/22 04:00 BP 159/92 12/03/22 04:00 Pulse Ox 94 L 12/03/22 08:49 FiO2 Intake & Output 12/02/22 12/03/22 12/03/22 18:59 06:59 18:59 Intake Total 224.742 488.601 118 Output Total 850 1826 Balance -625.258 -1337.399 118 Weight 122.5 kg Intake: Intake, IV Titration 106.742 248.601 Amount Heparin Sod,Pork in 0.45% 106.742 248.601 NaCl 25,000 unit In 0.45 % NaCl 1 250ml.bag @ 7. 385 UNITS/KG/HR 9.999 mls /hr IV .Q24H [facility] Rx#: [id number] Oral 118 240 118 Output: Urine 850 1825 Stool 1 Other: Voiding Method Toilet Toilet Urinal Urinal # Bowel Movements 1 - Labs CBC & Chem 7: 12/03/22 06:08 12/02/22 09:47 Labs: Abnormal Lab Results - Last 24 Hours (Table) 12/02/22 12/02/22 12/02/22 Range/Units 09:47 09:47 09:47 RBC (4.30-5.90) m/uL Hgb (13.0-17.5) gm/dL Hct (39.0-53.0) % ESR 58 H (0-15) mm/hr PT (9.0-12.0) sec INR (<1.2) APTT (22.0-30.0) sec Sodium (137-145) mmol/L Glucose (74-99) mg/dL POC Glucose (mg/dL) (70-110) mg/dL Hemoglobin A1c 7.0 H (<=6.0) % Calcium (8.4-10.2) mg/dL C-Reactive Protein (<1.0) mg/dL Procalcitonin 0.16 H (0.02-0.09) ng/mL 12/02/22 12/02/22 12/02/22 Range/Units 09:47 09:47 11:23 RBC (4.30-5.90) m/uL Hgb (13.0-17.5) gm/dL Hct (39.0-53.0) % ESR (0-15) mm/hr PT 12.1 H (9.0-12.0) sec INR 1.2 H (<1.2) APTT 36.0 H (22.0-30.0) sec Sodium 136 L (137-145) mmol/L Glucose 166 H (74-99) mg/dL POC Glucose (mg/dL) 179 H (70-110) mg/dL Hemoglobin A1c (<=6.0) % Calcium 7.8 L (8.4-10.2) mg/dL C-Reactive Protein 2.6 H (<1.0) mg/dL Procalcitonin (0.02-0.09) ng/mL 12/02/22 12/02/22 12/03/22 Range/Units 16:02 20:08 06:08 RBC 3.39 L (4.30-5.90) m/uL Hgb 10.6 L (13.0-17.5) gm/dL Hct 31.6 L (39.0-53.0) % ESR (0-15) mm/hr PT (9.0-12.0) sec INR (<1.2) APTT (22.0-30.0) sec Sodium (137-145) mmol/L Glucose (74-99) mg/dL POC Glucose (mg/dL) 186 H 184 H (70-110) mg/dL Hemoglobin A1c (<=6.0) % Calcium (8.4-10.2) mg/dL C-Reactive Protein (<1.0) mg/dL Procalcitonin (0.02-0.09) ng/mL 12/03/22 12/03/22 12/03/22 Range/Units 06:08 06:26 06:30 RBC (4.30-5.90) m/uL Hgb (13.0-17.5) gm/dL Hct (39.0-53.0) % ESR (0-15) mm/hr PT (9.0-12.0) sec INR (<1.2) APTT 39.7 H (22.0-30.0) sec Sodium (137-145) mmol/L Glucose (74-99) mg/dL POC Glucose (mg/dL) 177 H 185 H (70-110) mg/dL Hemoglobin A1c (<=6.0) % Calcium (8.4-10.2) mg/dL C-Reactive Protein (<1.0) mg/dL Procalcitonin (0.02-0.09) ng/mL
--- NOTE | 2022-12-03 14:03 | P.PN ---
Subjective Progress Note Date: 12/03/22 Principal diagnosis: Left foot tenosynovitis and MSSA bacteremia Patient is a 57-year-old male with a past medical history significant for diabetes mellitus recent admission to the hospital for left foot tenosynovitis and did have a MSSA bacteremia repeat blood cultures were negative MRI did not show any abscess and podiatry recommended against any surgical intervention patient did get a PICC line and was advised 6-day course of IV cefazolin and oral Flagyl patient is presenting back to [facility] ER for evaluation of shortness of breath, patient echocardiogram which shows EF of 45% and concern for pericarditis being monitored by cardiology. On today's evaluation that is 12/03/2022, the patient denies having any fever or chills, the patient is breathing comfortably currently on room air. Denies having any chest pain occasional cough no nausea no vomiting no abdominal pain and a pain to the left foot is controlled Objective - Vital Signs Vital signs: Vital Signs Temp 97.6 F 12/03/22 12:00 Pulse 97 12/03/22 12:00 Resp 18 12/03/22 12:00 BP 149/99 12/03/22 12:00 Pulse Ox 98 12/03/22 12:00 FiO2 Intake & Output 12/02/22 12/03/22 12/03/22 18:59 06:59 18:59 Intake Total 224.742 488.601 238.153 Output Total 850 1826 301 Balance -625.258 -1337.399 -62.847 Weight 122.5 kg Intake: Intake, IV Titration 106.742 248.601 120.153 Amount Heparin Sod,Pork in 0.45% 106.742 248.601 120.153 NaCl 25,000 unit In 0.45 % NaCl 1 250ml.bag @ 7. 385 UNITS/KG/HR 9.999 mls /hr IV .Q24H [facility] Rx#: [id number] Oral 118 240 118 Output: Urine 850 1825 300 Stool 1 1 Other: Voiding Method Toilet Toilet Toilet Urinal Urinal Urinal # Bowel Movements 1 - Exam GENERAL DESCRIPTION: A middle-age male lying in bed in no distress RESPIRATORY SYSTEM: Unlabored breathing , decreased breath sounds at bases HEART: S1 S2 regular rate and rhythm , ABDOMEN: Soft , no tenderness EXTREMITIES: Left foot is currently wrapped in Elie wrap - Labs CBC & Chem 7: 12/03/22 06:08 12/02/22 09:47 Labs: Abnormal Lab Results - Last 24 Hours (Table) 12/02/22 12/02/22 12/02/22 Range/Units 09:47 09:47 16:02 RBC (4.30-5.90) m/uL Hgb (13.0-17.5) gm/dL Hct (39.0-53.0) % APTT (22.0-30.0) sec POC Glucose (mg/dL) 186 H (70-110) mg/dL Hemoglobin A1c 7.0 H (<=6.0) % HDL Cholesterol (40.00-60.00) mg/dL Procalcitonin 0.16 H (0.02-0.09) ng/mL 12/02/22 12/03/22 12/03/22 Range/Units 20:08 06:08 06:08 RBC 3.39 L (4.30-5.90) m/uL Hgb 10.6 L (13.0-17.5) gm/dL Hct 31.6 L (39.0-53.0) % APTT 39.7 H (22.0-30.0) sec POC Glucose (mg/dL) 184 H (70-110) mg/dL Hemoglobin A1c (<=6.0) % HDL Cholesterol (40.00-60.00) mg/dL Procalcitonin (0.02-0.09) ng/mL 12/03/22 12/03/22 12/03/22 Range/Units 06:08 06:26 06:30 RBC (4.30-5.90) m/uL Hgb (13.0-17.5) gm/dL Hct (39.0-53.0) % APTT (22.0-30.0) sec POC Glucose (mg/dL) 177 H 185 H (70-110) mg/dL Hemoglobin A1c (<=6.0) % HDL Cholesterol 36.40 L (40.00-60.00) mg/dL Procalcitonin (0.02-0.09) ng/mL 12/03/22 Range/Units 11:27 RBC (4.30-5.90) m/uL Hgb (13.0-17.5) gm/dL Hct (39.0-53.0) % APTT (22.0-30.0) sec POC Glucose (mg/dL) 173 H (70-110) mg/dL Hemoglobin A1c (<=6.0) % HDL Cholesterol (40.00-60.00) mg/dL Procalcitonin (0.02-0.09) ng/mL Assessment and Plan (1) Tenosynovitis of left foot Current Visit: Yes Status: Acute Code(s): M65.9 - SYNOVITIS AND TENOSYNOVITIS, UNSPECIFIED SNOMED Code(s): 1503598164471599 (2) MSSA bacteremia Current Visit: No Status: Acute Code(s): R78.81 - BACTEREMIA; B95.61 - METHICILLIN SUSCEP STAPH INFCT CAUSING DIS CLASSD [id number] SNOMED Code(s): 523714426 Plan: 1patient with recent admission to the hospital with left diabetic foot infection with evidence of tenosynovitis and MSSA bacteremia patient seem to have shown clinical response to the cefazolin now presented to hospital with increasing shortness of breath and did have evidence of bilateral effusion and concern for pericardial fusion and pericarditis for which cardiology is following the patient 2-blood cultures will be repeated and are currently pending 3-patient to continue with the cefazolin 2 g every 8 hours and monitor clinical course closely at the bedside questions concerned were answered Time with Patient: Less than 30
[2022-12-03] MEDS: carvediloL 12.5 MG TAB PO SCH (16:03)
[2022-12-03 16:30] LABS: Glucose,Whole Blood 173 mg/dL (70-110)
[2022-12-03 20:08] LABS: Glucose,Whole Blood 178 mg/dL (70-110)
[2022-12-03] MEDS: ATORVASTATIN 20 MG TAB PO SCH (21:35)
[2022-12-03] MEDS: METOCLOPRAMIDE 5 MG/ML 2 ML VIAL IVP PRN (22:17)
[2022-12-03] MEDS: MELATONIN 5 MG TABLET PO PRN (22:19)
[2022-12-04] MEDS: HEPARIN SODIUM,PORCINE/PF 5,000 UNIT/0.5 ML SYRINGE SQ SCH ×3 (01:23→17:37)
[2022-12-04] MEDS: ONDANSETRON 4 MG/2 ML VIAL IVP PRN ×2 (02:08→21:04)
[2022-12-04] MEDS: METOCLOPRAMIDE 5 MG/ML 2 ML VIAL IVP PRN ×2 (04:25→18:02)
[2022-12-04 06:22] LABS: Glucose,Whole Blood 153 mg/dL (70-110)
[2022-12-04] MEDS: carvediloL 12.5 MG TAB PO SCH ×2 (06:35→17:37)
[2022-12-04] MEDS: INSULIN ASPART (NovoLOG) 100 UNIT/ML VIAL SQ SCH ×4 (06:35→21:04)
--- NOTE | 2022-12-04 07:46 | P.PN ---
Subjective He is off his old male with past medical history of diabetes mellitus, hypertension, GERD. PCP is Dr. Trevino He was recently discharged from hospital for osteomyelitis of the left foot. Presents because of for some dyspnea over several days but 5 days, associated with some cough associated with agreed and white phlegm. and discomfort in the chest chest pain only with cough. Also patient has diarrhea for the last 5 days and since his been discharged from. Patient still complaining of from left leg and foot swelling and infection. He denies any urinary symptoms, no neurological symptoms. He denies smoking alcohol or illicit drugs. Patient is afebrile and vitals are stable. Blood pressure is elevated off the high side He has unremarkable CBC except for mild anemia at 11.1. INR 1.1. D-dimer elevated 1.85. BNP under enzymes are unremarkable Troponin elevated 0.09 and 0.08. ProBNP is significantly elevated 32299. Viruses and detected including influenza, RSV, coronavirus Chest x-ray: Correlate for volume overload CTA of the chest revealed no pulmonary embolism but his large bilateral pleural effusion and mild bibasilar atelectasis EKG showing sinus tachycardia [address]-T changes 12/02/2022 Patient lying in bed with multiple in distress is still complaining of from dyspnea but is not walking much. He denies any chest pain. No other new complaint Patient blood pressure is better controlled after adding beta og which he seems to correlate by cardiology team Patient remains on IV Lasix 40 mg twice daily heparin drip was added by cardiology team and continued on aspirin 81 mg which is a home dose. After this was discontinued. ESR and CRP are elevated 58 and 2.6 respectively. Patient has an aunt os teomyelitis of the left foot on antibiotic we are going to consult infectious disease team 12/03/2022 Patient still complaining of from dyspnea, extending in bed most of the time. He is not in respiratory distress, he does not use accessory muscles Remains on IV Lasix for his bilateral pleural effusion and CHF exacerbation with severe mitral regurgitation His Coreg dose was increased while heparin drip was stopped and currently is on subcutaneous heparin. Also sent home dose aspirin of 81 mg. Cartilage team are considered cardiac cath. His left foot cellulitis is stable and remains on cefazolin. Objective - Vital Signs Vital signs: Vital Signs Temp 97.3 F L 12/03/22 09:10 Pulse 101 H 12/03/22 09:10 Resp 18 12/03/22 09:10 BP 146/87 12/03/22 09:10 Pulse Ox 97 12/03/22 09:10 FiO2 Intake & Output 12/02/22 12/03/22 12/03/22 18:59 06:59 18:59 Intake Total 224.742 488.601 238.153 Output Total 850 1826 301 Balance -625.258 -1337.399 -62.847 Weight 122.5 kg Intake: Intake, IV Titration 106.742 248.601 120.153 Amount Heparin Sod,Pork in 0.45% 106.742 248.601 120.153 NaCl 25,000 unit In 0.45 % NaCl 1 250ml.bag @ 7. 385 UNITS/KG/HR 9.999 mls /hr IV .Q24H [facility] Rx#: [id number] Oral 118 240 118 Output: Urine 850 1825 300 Stool 1 1 Other: Voiding Method Toilet Toilet Toilet Urinal Urinal Urinal # Bowel Movements 1 - Exam -GENERAL: The patient is alert and oriented x3, not in any acute distress. Obese HEENT: Pupils are round and equally reacting to light. EOMI. No scleral icterus. No conjunctival pallor. Normocephalic, atraumatic. No pharyngeal erythema. No thyromegaly. CARDIOVASCULAR: S1 and S2 present. No murmurs, rubs, or gallops. -PULMONARY: Chest is clear to auscultation, no wheezing . no crackles. Decreased breath sounds on both sides ABDOMEN: Soft, nontender, nondistended, normoactive bowel sounds. No palpable organomegaly. MUSCULOSKELETAL: No joint swelling or deformity. -EXTREMITIES: No cyanosis, clubbing, . No leg edema. Left foot infection with a dressing in place NEUROLOGICAL: Gross neurological examination did not reveal any focal deficits. -SKIN: No rashes. no petechiae. - Labs CBC & Chem 7: 12/03/22 06:08 12/02/22 09:47 Labs: Abnormal Lab Results - Last 24 Hours (Table) 12/02/22 12/02/22 12/02/22 Range/Units 09:47 09:47 16:02 RBC (4.30-5.90) m/uL Hgb (13.0-17.5) gm/dL Hct (39.0-53.0) % APTT (22.0-30.0) sec POC Glucose (mg/dL) 186 H (70-110) mg/dL Hemoglobin A1c 7.0 H (<=6.0) % HDL Cholesterol (40.00-60.00) mg/dL Procalcitonin 0.16 H (0.02-0.09) ng/mL 12/02/22 12/03/22 12/03/22 Range/Units 20:08 06:08 06:08 RBC 3.39 L (4.30-5.90) m/uL Hgb 10.6 L (13.0-17.5) gm/dL Hct 31.6 L (39.0-53.0) % APTT 39.7 H (22.0-30.0) sec POC Glucose (mg/dL) 184 H (70-110) mg/dL Hemoglobin A1c (<=6.0) % HDL Cholesterol (40.00-60.00) mg/dL Procalcitonin (0.02-0.09) ng/mL 12/03/22 12/03/22 12/03/22 Range/Units 06:08 06:26 06:30 RBC (4.30-5.90) m/uL Hgb (13.0-17.5) gm/dL Hct (39.0-53.0) % APTT (22.0-30.0) sec POC Glucose (mg/dL) 177 H 185 H (70-110) mg/dL Hemoglobin A1c (<=6.0) % HDL Cholesterol 36.40 L (40.00-60.00) mg/dL Procalcitonin (0.02-0.09) ng/mL 12/03/22 Range/Units 11:27 RBC (4.30-5.90) m/uL Hgb (13.0-17.5) gm/dL Hct (39.0-53.0) % APTT (22.0-30.0) sec POC Glucose (mg/dL) 173 H (70-110) mg/dL Hemoglobin A1c (<=6.0) % HDL Cholesterol (40.00-60.00) mg/dL Procalcitonin (0.02-0.09) ng/mL Assessment and Plan Assessment: Acute CHF unknown ejection fraction Bilateral pleural effusion most likely secondary to above Mildly elevated troponin secondary to above Hypertension, uncontrolled, present on admission steomyelitis and pain left foot, recent from this facility on antibiotic Diabetes Mellitus History of GERD/Reflux obesity with BMI of 34.7 Plan: Started on heparin drip Continue with IV Lasix 40 twice daily Start aspirin 3241 and then 81 daily Continue with Coreg 6.5 mg Check echo of heart Cardiologic consult Consult infectious disease team Continue with antibiotic currently on cefazolin Labs and medication were reviewed.. Continue same treatment. Continue with symptomatic treatment. Resume home medication. Monitor labs and vitals. DVT and GI prophylaxis. Further recommendations as per clinical course of the patient DVT prophylaxis: heparin GI Prophylaxis: Pepcid PT/OT: Home health care Prognosis is guarded
[2022-12-04] MEDS: metFORMIN 500 MG TAB PO SCH ×3 (09:51→21:04)
[2022-12-04] MEDS: ASPIRIN 81 MG PO SCH (09:51)
[2022-12-04] MEDS: LOSARTAN 50 MG TAB PO SCH (09:51)
[2022-12-04] MEDS: FAMOTIDINE 20 MG TAB PO SCH ×2 (09:51→21:05)
[2022-12-04] MEDS: FUROSEMIDE 10 MG/ML 4 ML VIAL IV SCH ×2 (09:52→21:04)
[2022-12-04 11:16] LABS: Glucose,Whole Blood 158 mg/dL (70-110)
[2022-12-04 12:07] LABS: African American GFR (CKD) 58 (>60 ml/min/1.73 sqM); Anion Gap 10 mmol/L; Blood Urea Nitrogen 18 mg/dL (9-20); Calcium 7.8 mg/dL (8.4-10.2); Carbon Dioxide 24 mmol/L (22-30); Chloride 102 mmol/L (98-107); Glucose 155 mg/dL (74-99); Non-African American GFR(CKD) 50 (>60 ml/min/1.73 sqM); Potassium 4.5 mmol/L (3.5-5.1); Sodium 136 mmol/L (137-145)
--- NOTE | 2022-12-04 14:28 | P.PN ---
Subjective Progress Note Date: 12/04/22 57 y/omale with past medical history of diabetes mellitus, hypertension, GERD. PCP is Dr. Trevino He was recently discharged from hospital for osteomyelitis of the left foot. Presents because of for some dyspnea over several days but 5 days, associated with some cough associated with agreed and white phlegm. and discomfort in the chest chest pain only with cough. Also patient has diarrhea for the last 5 days and since his been discharged from. Patient still complaining of from left leg and foot swelling and infection. He denies any urinary symptoms, no neurological symptoms. He denies smoking alcohol or illicit drugs. Patient is afebrile and vitals are stable. Blood pressure is elevated off the high side He has unremarkable CBC except for mild anemia at 11.1. INR 1.1. D-dimer elevated 1.85. BNP under enzymes are unremarkable Troponin elevated 0.09 and 0.08. ProBNP is significantly elevated 70776. Viruses and detected including influenza, RSV, coronavirus Chest x-ray: Correlate for volume overload CTA of the chest revealed no pulmonary embolism but his large bilateral pleural effusion and mild bibasilar atelectasis EKG showing sinus tachycardia [address]-T changes 12/02/2022 Patient lying in bed with multiple in distress is still complaining of from dyspnea but is not walking much. He denies any chest pain. No other new complaint Patient blood pressure is better controlled after adding beta og which he seems to correlate by cardiology team Patient remains on IV Lasix 40 mg twice daily heparin drip was added by cardiology team and continued on aspirin 81 mg which is a home dose. After this was discontinued. ESR and CRP are elevated 58 and 2.6 respectively. Patient has an aunt osteomyelitis of the left foot on antibiotic we are going to consult infectious disease team 12/03/2022 Patient still complaining of from dyspnea, extending in bed most of the time. He is not in respiratory distress, he does not use accessory muscles Remains on IV Lasix for his bilateral pleural effusion and CHF exacerbation with severe mitral regurgitation His Coreg dose was increased while heparin drip was stopped and currently is on subcutaneous heparin. Also sent home dose aspirin of 81 mg. Cardiology team are considered cardiac cath. His left foot cellulitis is stable and remains on cefazolin. 12/04. Patient seen and examined. Cardiology planning to do cardiac cath, patient had questions about cardiac cath, all questions WERE ANSWERED REVIEW OF SYSTEMS: CONSTITUTIONAL: No fever, no malaise,. CARDIOVASCULAR: No chest pain, no palpitations, no syncope. PULMONARY: No shortness of breath, no cough, GASTROINTESTINAL: No diarrhea, no nausea, no vomiting, no abdominal pain. NEUROLOGICAL: No headaches, no weakness, PHYSICAL EXAMINATION: GENERAL: The patient is alert and oriented x3, not in any acute distress. Well developed, well nourished. HEENT: Pupils are round and equally reacting to light. EOMI. No scleral icterus. No conjunctival pallor. Normocephalic, atraumatic. No pharyngeal erythema. No thyromegaly. CARDIOVASCULAR: S1 and S2 present. No murmurs, rubs, or gallops. PULMONARY: Chest is clear to auscultation, no wheezing or crackles. ABDOMEN: Soft, nontender, nondistended, normoactive bowel sounds. No palpable organomegaly. MUSCULOSKELETAL: No joint swelling or deformity. EXTREMITIES: No cyanosis, clubbing, or pedal edema. Left foot bandaged seen NEUROLOGICAL: Gross neurological examination did not reveal any focal deficits. SKIN: No rashes. Assessment and plan Acute CHF unknown ejection fraction Bilateral pleural effusion most likely secondary to above Mildly elevated troponin secondary to above Hypertension, uncontrolled, present on admission steomyelitis and pain left foot, recent from this facility on antibiotic Diabetes Mellitus History of GERD/Reflux obesity with BMI of 34.7 Monitor vital signs Monitor CBC Monitor CMP Continue telemetry monitoring Continue heparin drip Continue IV cefazolin Strict I's and O's, daily weights, continue IV Lasix 4012 echocardiogram revealed EF of 40% with moderate pulmonary hypertension, pericarditis. ID following Cardiology following,Cardiac workup with cardiac catheterization will need to be addressed once patient's osteomyelitis is resolved Labs and medication were reviewed.. Continue same treatment. Continue with symptomatic treatment. Monitor labs and vitals. DVT and GI prophylaxis. Further recommendations as per clinical course of the patient Objective - Vital Signs Vital signs: Vital Signs Temp 97.6 F 12/03/22 20:00 Pulse 95 12/04/22 04:00 Resp 18 12/04/22 04:00 BP 153/87 12/04/22 04:00 Pulse Ox 93 L 12/04/22 09:24 FiO2 Intake & Output 12/03/22 12/04/22 12/04/22 18:59 06:59 18:59 Intake Total 718.153 Output Total 877 725 Balance -158.847 -725 Weight 124 kg Intake: Intake, IV Titration 120.153 Amount Heparin Sod,Pork in 0.45% 120.153 NaCl 25,000 unit In 0.45 % NaCl 1 250ml.bag @ 7. 385 UNITS/KG/HR 9.999 mls /hr IV .Q24H [facility] Rx#: [id number] Oral 598 Output: Urine 875 725 Stool 2 Other: Voiding Method Toilet Toilet Urinal Urinal - Labs CBC & Chem 7: 12/03/22 06:08 12/04/22 11:27 Labs: Abnormal Lab Results - Last 24 Hours (Table) 12/03/22 12/03/22 12/03/22 Range/Units 06:08 11:27 14:22 APTT 53.5 H (22.0-30.0) sec POC Glucose (mg/dL) 173 H (70-110) mg/dL HDL Cholesterol 36.40 L (40.00-60.00) mg/dL 12/03/22 12/03/22 12/04/22 Range/Units 16:26 20:06 06:21 APTT (22.0-30.0) sec POC Glucose (mg/dL) 173 H 178 H 153 H (70-110) mg/dL HDL Cholesterol (40.00-60.00) mg/dL
--- NOTE | 2022-12-04 14:30 | P.PN ---
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 He has a history of diabetes mellitus type 2, hypertension. We have been asked to evaluate the patient for bilateral pleural effusions and elevated troponins. Patient was recently hospitalized and discharged on 11/19 for osteomyelitis and discharged on IV antibiotics. Patient states he developed chest pain and pressure along with difficulty breathing and been going on for ab out 6 days. He had dyspnea with exertion and when he was laying flat. He also has lower extremity edema on the left leg only which is the leg affected by osteomyelitis. He describes the pain as a burning type in his chest more so when he lays flat l[place] await is on his chest. He states he does not have pain with exertion. No lightheadedness or dizziness. He has had weight gain. He states he is not normally active. Patient is status post magnesium replacement and IV Lasix 40 mg 1. Regarding diabetes, patient has been diabetic for 20 years with an A1c of 7.8. He denies any history of smoking. He states his mother has history of cardiac disease. EKG sinus rhythm with nonspecific changes in the inferior leads Chest x-ray: Correlate for early volume overload. CT angiogram of the chest revealed no evidence of pulmonary embolism. Large bilateral pleural effusions with mild bibasilar atelectasis. WBC 5.6, hemoglobin 0.1, platelet count 195. INR 1.1. D-dimer 1.85. Sodium 136, potassium 4.5, BUN 10 and creatinine 1.07. Glucose 166. Lactic acid 1.3. Magnesium 1.3. Liver function tests normal. Troponins 0.098, 0.081, 0.077. ProBNP 21,900. Influenza A, influenza B, RSV, Covid 19 undetectable. Home cardiac medications: Benicar 40 mg daily 12/03 Patient is seen today in follow-up. Echocardiogram revealed EF of 40% with moderate pulmonary hypertension, pericarditis. The pressure 159/92, heart rate 103. Patient has been on heparin drip and yesterday metoprolol was changed to Coreg to better control blood pressure. He is continued on IV Lasix 40 mg every 12 hours. Negative balance of 1960 mL. BMP ordered for tomorrow 12/04 Patient continues to have some shortness of breath, no chest pain. Blood pressure is improved today. Discussed with the patient the need for cardiac catheterization possibly during this hospitalization. We are waiting for respiratory status to be stable possibly in the next 1-2 days. He has been afebrile, heart rate in the 80s and 90s, blood pressure 126/83, pulse ox 92% on room air. Repeat blood work reveals sodium 136, potassium 4.5, BUN 18 and creatinine 1.54. Physical examination: Gen: This is a 57-year-old male resting in bed. VS: reviewed HEENT: Head is atraumatic, normocephalic. Pupils equal, round. Sclerae is anicteric. NECK: Supple. No JVD. . LUNGS: Diminished with bilateral crackles No intercostal retractions. HEART: Regular rate and rhythm. No murmur. ABDOMEN: Soft EXTREMITIES: left leg edema. Dressing to left foot. NEUROLOGICAL: Patient is awake, alert and oriented x3. Assessment: Acute heart failure Elevated troponins possible due to heart failure, possible NSTEMI Acute kidney injury Uncontrolled HTN DMT2 OM left foot Plan: Continue Lasix 40 mg IV every 12 hours, monitor I&O, daily weights, electrolytes and renal function Continue increased dose of Coreg 12.5 mg bid Continue Losartan 100 mg daily Cardiac workup with cardiac catheterization will need to be addressed once patient other medical conditions are stable, possibly during this hospitalization in the next 1-2 days. Patient will be evaluated daily for possible cardiac catheterization. Further recommendations to follow based upon clinical course Nurse practitioner note has been reviewed, I agree with documented findings and plan of care. Patient was seen and examined. Objective - Vital Signs Vital signs: Vital Signs Temp 98.3 F 12/04/22 08:20 Pulse 91 12/04/22 08:20 Resp 16 12/04/22 08:20 BP 126/83 12/04/22 08:20 Pulse Ox 93 L 12/04/22 09:24 FiO2 Intake & Output 12/03/22 12/04/22 12/04/22 18:59 06:59 18:59 Intake Total 718.153 Output Total 877 725 1 Balance -158.847 -725 -1 Weight 124 kg Intake: Intake, IV Titration 120.153 Amount Heparin Sod,Pork in 0.45% 120.153 NaCl 25,000 unit In 0.45 % NaCl 1 250ml.bag @ 7. 385 UNITS/KG/HR 9.999 mls /hr IV .Q24H [facility] Rx#: [id number] Oral 598 Output: Urine 875 725 Stool 2 1 Other: Voiding Method Toilet Toilet Toilet Urinal Urinal Urinal - Labs CBC & Chem 7: 12/03/22 06:08 12/04/22 11:27 Labs: Abnormal Lab Results - Last 24 Hours (Table) 12/03/22 12/03/22 12/03/22 Range/Units 14:22 16:26 20:06 APTT 53.5 H (22.0-30.0) sec Sodium (137-145) mmol/L Creatinine (0.66-1.25) mg/dL Glucose (74-99) mg/dL POC Glucose (mg/dL) 173 H 178 H (70-110) mg/dL Calcium (8.4-10.2) mg/dL 12/04/22 12/04/22 12/04/22 Range/Units 06:21 11:13 11:27 APTT (22.0-30.0) sec Sodium 136 L (137-145) mmol/L Creatinine 1.54 H (0.66-1.25) mg/dL Glucose 155 H (74-99) mg/dL POC Glucose (mg/dL) 153 H 158 H (70-110) mg/dL Calcium 7.8 L (8.4-10.2) mg/dL
[2022-12-04 16:25] LABS: Glucose,Whole Blood 184 mg/dL (70-110)
--- NOTE | 2022-12-04 16:27 | P.PN ---
Subjective Progress Note Date: 12/04/22 Principal diagnosis: Left foot tenosynovitis and MSSA bacteremia Patient is a 57-year-old male with a past medical history significant for diabetes mellitus recent admission to the hospital for left foot tenosynovitis and did have a MSSA bacteremia repeat blood cultures were negative MRI did not show any abscess and podiatry recommended against any surgical intervention patient did get a PICC line and was advised 6-day course of IV cefazolin and oral Flagyl patient is presenting back to [facility] ER for evaluation of shortness of breath, patient echocardiogram which shows EF of 45% and concern for pericarditis being monitored by cardiology. On today's evaluation that is 12/04/2022, the patient remains to be afebrile, the patient is breathing comfortably currently on room air, the patient denies having any chest pain occasional cough no nausea no vomiting no abdominal pain and a pain to the left foot is controlled Objective - Vital Signs Vital signs: Vital Signs Temp 98.3 F 12/04/22 08:20 Pulse 91 12/04/22 08:20 Resp 16 12/04/22 08:20 BP 126/83 12/04/22 08:20 Pulse Ox 93 L 12/04/22 09:24 FiO2 Intake & Output 12/03/22 12/04/22 12/04/22 18:59 06:59 18:59 Intake Total 718.153 Output Total 877 725 1 Balance -158.847 -725 -1 Weight 124 kg Intake: Intake, IV Titration 120.153 Amount Heparin Sod,Pork in 0.45% 120.153 NaCl 25,000 unit In 0.45 % NaCl 1 250ml.bag @ 7. 385 UNITS/KG/HR 9.999 mls /hr IV .Q24H [facility] Rx#: [id number] Oral 598 Output: Urine 875 725 Stool 2 1 Other: Voiding Method Toilet Toilet Toilet Urinal Urinal Urinal - Exam GENERAL DESCRIPTION: A middle-age male lying in bed in no distress RESPIRATORY SYSTEM: Unlabored breathing , decreased breath sounds at bases HEART: S1 S2 regular rate and rhythm , ABDOMEN: Soft , no tenderness EXTREMITIES: Left foot is currently wrapped in Elie wrap - Labs CBC & Chem 7: 12/03/22 06:08 12/04/22 11:27 Labs: Abnormal Lab Results - Last 24 Hours (Table) 12/03/22 12/03/22 12/03/22 Range/Units 14:22 16:26 20:06 APTT 53.5 H (22.0-30.0) sec Sodium (137-145) mmol/L Creatinine (0.66-1.25) mg/dL Glucose (74-99) mg/dL POC Glucose (mg/dL) 173 H 178 H (70-110) mg/dL Calcium (8.4-10.2) mg/dL 12/04/22 12/04/22 12/04/22 Range/Units 06:21 11:13 11:27 APTT (22.0-30.0) sec Sodium 136 L (137-145) mmol/L Creatinine 1.54 H (0.66-1.25) mg/dL Glucose 155 H (74-99) mg/dL POC Glucose (mg/dL) 153 H 158 H (70-110) mg/dL Calcium 7.8 L (8.4-10.2) mg/dL Assessment and Plan (1) Tenosynovitis of left foot Current Visit: Yes Status: Acute Code(s): M65.9 - SYNOVITIS AND TENOSYNO VITIS, UNSPECIFIED SNOMED Code(s): 1675682168919334 (2) MSSA bacteremia Current Visit: No Status: Acute Code(s): R78.81 - BACTEREMIA; B95.61 - METHICILLIN SUSCEP STAPH INFCT CAUSING DIS CLASSD ELSWHR SNOMED Code(s): 153588045 Plan: 1patient with recent admission to the hospital with left diabetic foot infection with evidence of tenosynovitis and MSSA bacteremia patient seem to have shown clinical response to the cefazolin now presented to hospital with increasing shortness of breath and did have evidence of bilateral effusion and concern for pericardial fusion and pericarditis for which cardiology is following the patient 2-blood cultures were requested 12/03/2022 and are currently pending 3-patient to continue with the cefazolin 2 g every 8 hours and monitor clinical course closely Time with Patient: Less than 30
[2022-12-04 20:14] LABS: Glucose,Whole Blood 196 mg/dL (70-110)
[2022-12-04] MEDS: ATORVASTATIN 20 MG TAB PO SCH (21:05)
[2022-12-05] MEDS: HEPARIN SODIUM,PORCINE/PF 5,000 UNIT/0.5 ML SYRINGE SQ SCH ×4 (00:03→23:05)
[2022-12-05 06:01] LABS: Glucose,Whole Blood 177 mg/dL (70-110)
[2022-12-05] MEDS: INSULIN ASPART (NovoLOG) 100 UNIT/ML VIAL SQ SCH ×4 (06:10→20:15)
--- NOTE | 2022-12-05 06:18 | P.PN ---
Subjective Progress Note Date: 12/05/22 Principal diagnosis: Acute coronary syndrome/congestive heart failure The patient is a 57-year-old gentleman with a past medical history significant for diabetes and hypertension and dyslipidemia who was admitted to the hospital initially with left foot infection. Troponin was elevated. He was diagnosed with heart failure as well. And he underwent an echo which revealed impaired LV function was EF around 40%. He was experiencing symptoms of shortness of breath but no pain in the chest. December [id number] He was seen this morning. He continues to have shortness of breath mainly with laying flat in bed consistent with orthopnea and he remains in failure. The examination is consistent with bilateral rhonchi/diminished breathing sounds bilaterally and also mild bilateral lower extremity edema. The pressure remains elevated didn't point to increase the dose of carvedilol and continue aspirin and statin and Lasix IV. He'll need to undergo a heart catheterization in the next 24-48 hours Assessment Heart failure exacerbation related to heart failure with reduced ejection fraction Elevated troponin likely secondary to an unsteady versus heart failure Cardiomyopathy was EF about 40% of unknown etiology Infection in the left foot Multiple comorbidities including diabetes and hypertension and dyslipidemia Plan Continue the current medical regimen Increase the dose of carvedilol Continue Lasix IV Continue monitor the kidney function and electrolytes Consider coronary angiogram Objective - Vital Signs Vital signs: Vital Signs Temp 97.8 F 12/05/22 04:00 Pulse 100 12/05/22 04:00 Resp 16 12/05/22 04:00 BP 176/92 12/05/22 04:00 Pulse Ox 93 L 12/05/22 04:00 FiO2 Intake & Output 12/04/22 12/04/22 12/05/22 06:59 18:59 06:59 Intake Total 480 Output Total 725 2 500 Balance -725 478 -500 Weight 124 kg 133.4 kg Intake: Oral 480 Output: Urine 725 500 Stool 2 Other: Voiding Method Toilet Toilet Toilet Urinal Urinal Urinal # Voids 0 - Labs CBC & Chem 7: 12/03/22 06:08 12/04/22 11:27 Labs: Abnormal Lab Results - Last 24 Hours (Table) 12/04/22 12/04/22 12/04/22 Range/Units 06:21 11:13 11:27 Sodium 136 L (137-145) mmol/L Creatinine 1.54 H (0.66-1.25) mg/dL Glucose 155 H (74-99) mg/dL POC Glucose (mg/dL) 153 H 158 H (70-110) mg/dL Calcium 7.8 L (8.4-10.2) mg/dL 12/04/22 12/04/22 12/05/22 Range/Units 16:23 20:13 05:58 Sodium (137-145) mmol/L Creatinine (0.66-1.25) mg/dL Glucose (74-99) mg/dL POC Glucose (mg/dL) 184 H 196 H 177 H (70-110) mg/dL Calcium (8.4-10.2) mg/dL Microbiology - Last 24 Hours (Table) 12/03/22 06:08 Blood Culture - Preliminary Blood
[2022-12-05] MEDS: carvediloL 12.5 MG TAB PO SCH ×2 (06:38→17:56)
[2022-12-05] MEDS: METOCLOPRAMIDE 5 MG/ML 2 ML VIAL IVP PRN (08:47)
[2022-12-05] MEDS: LOSARTAN 50 MG TAB PO SCH (08:48)
[2022-12-05] MEDS: metFORMIN 500 MG TAB PO SCH ×3 (08:48→20:15)
[2022-12-05] MEDS: ASPIRIN 81 MG PO SCH (08:48)
[2022-12-05] MEDS: FAMOTIDINE 20 MG TAB PO SCH ×2 (08:48→20:15)
[2022-12-05] MEDS: FUROSEMIDE 10 MG/ML 4 ML VIAL IV SCH ×2 (08:48→20:15)
[2022-12-05] MEDS: ACETAMINOPHEN TAB 325 MG TAB PO PRN (09:02)
[2022-12-05 10:06] LABS: ALT 13 U/L (4-49); AST 24 U/L (17-59); African American GFR (CKD) 54 (>60 ml/min/1.73 sqM); Alkaline Phosphatase 74 U/L (38-126); Anion Gap 10 mmol/L; Blood Urea Nitrogen 21 mg/dL (9-20); Calcium 7.5 mg/dL (8.4-10.2); Carbon Dioxide 23 mmol/L (22-30); Chloride 101 mmol/L (98-107); Glucose 144 mg/dL (74-99); Non-African American GFR(CKD) 47 (>60 ml/min/1.73 sqM); Potassium 4.6 mmol/L (3.5-5.1); Sodium 134 mmol/L (137-145); Total Bilirubin 0.7 mg/dL (0.2-1.3); Total Protein 5.8 g/dL (6.3-8.2)
[2022-12-05 10:10] LABS: Basophils % (A) 0 %; Eosinophils # (A) 0.1 k/uL (0-0.7); Eosinophils % (A) 2 %; HCT 27.6 % (39.0-53.0); HGB 9.4 gm/dL (13.0-17.5); Lymphocytes # (A) 1.5 k/uL (1.0-4.8); Lymphocytes % (A) 37 %; MCV 91.2 fL (80.0-100.0); Mean Platelet Volume 9.1; Monocytes # (A) 0.3 k/uL (0-1.0); Monocytes % (A) 7 %; Neutrophils # (A) 2.1 k/uL (1.3-7.7); Neutrophils % (A) 51 %; Platelet Count 178 k/uL (150-450); RBC 3.03 m/uL (4.30-5.90); RDW 14.7 % (11.5-15.5); WBC 4.1 k/uL (3.8-10.6)
[2022-12-05 11:36] LABS: Glucose,Whole Blood 167 mg/dL (70-110)
[2022-12-05 16:42] LABS: Glucose,Whole Blood 149 mg/dL (70-110)
[2022-12-05 19:59] LABS: Glucose,Whole Blood 168 mg/dL (70-110)
[2022-12-05] MEDS: ATORVASTATIN 20 MG TAB PO SCH (20:15)
[2022-12-05] MEDS: MELATONIN 5 MG TABLET PO PRN (23:05)
[2022-12-06 06:04] LABS: Glucose,Whole Blood 133 mg/dL (70-110)
[2022-12-06] MEDS: INSULIN ASPART (NovoLOG) 100 UNIT/ML VIAL SQ SCH ×3 (06:04→20:16)
[2022-12-06] MEDS: carvediloL 12.5 MG TAB PO SCH ×2 (06:06→18:07)
--- NOTE | 2022-12-06 06:14 | P.PN ---
Subjective Progress Note Date: 12/06/22 Principal diagnosis: Acute coronary syndrome/congestive heart failure The patient is a 57-year-old gentleman with a past medical history significant for diabetes and hypertension and dyslipidemia who was admitted to the hospital initially with left foot infection. Troponin was elevated. He was diagnosed with heart failure as well. And he underwent an echo which revealed impaired LV function was EF around 40%. He was experiencing symptoms of shortness of breath but no pain in the chest. December 052022 He was seen this morning. He continues to have shortness of breath mainly with laying flat in bed consistent with orthopnea and he remains in failure. The examination is consistent with bilateral rhonchi/diminished breathing sounds bilaterally and also mild bilateral lower extremity edema. The pressure remains elevated didn't point to increase the dose of carvedilol and continue aspirin and statin and Lasix IV. He'll need to undergo a heart catheterization in the next 24-48 hours 12/06/2022 The patient was seen and evaluated this morning. He remains hypoxic require some oxygen but his shortness of breath with laying flat/orthopnea has improved significantly and he is laying flat in bed this morning. He still have lower extremity edema more prominent on the left than the right. No pain in the chest. I am going to pursue with a heart catheterization later on today unless the kidney function is worse. We'll follow-up with the kidney function from the morning. Assessment Heart failure exacerbation related to heart failure with reduced ejection f raction Elevated troponin likely secondary to CAD versus heart failure Cardiomyopathy was EF about 40% of unknown etiology Infection in the left foot Renal failure Plan Continue the current medical regimen Increase the dose of carvedilol Continue Lasix IV Continue monitor the kidney function and electrolytes Proceed with coronary angiogram Objective - Vital Signs Vital signs: Vital Signs Temp 98.7 F 12/06/22 03:19 Pulse 82 12/06/22 03:19 Resp 20 12/06/22 03:19 BP 124/74 12/06/22 03:19 Pulse Ox 97 12/06/22 03:19 FiO2 Intake & Output 12/05/22 12/05/22 12/06/22 06:59 18:59 06:59 Intake Total 898 Output Total 180 670 6909 Balance -500 273 -1025 Weight 133.4 kg 133.1 kg Intake: Oral 898 Output: Urine 242 491 0495 Other: Voiding Method Toilet Toilet Urinal Urinal - Labs CBC & Chem 7: 12/05/22 08:35 12/05/22 08:35 Labs: Abnormal Lab Results - Last 24 Hours (Table) 12/05/22 12/05/22 12/05/22 Range/Units 08:35 08:35 11:35 RBC 3.03 L (4.30-5.90) m/uL Hgb 9.4 L (13.0-17.5) gm/dL Hct 27.6 L (39.0-53.0) % Sodium 134 L (137-145) mmol/L BUN 21 H (9-20) mg/dL Creatinine 1.63 H (0.66-1.25) mg/dL Glucose 144 H (74-99) mg/dL POC Glucose (mg/dL) 167 H (70-110) mg/dL Calcium 7.5 L (8.4-10.2) mg/dL Total Protein 5.8 L (6.3-8.2) g/dL Albumin 3.0 L (3.5-5.0) g/dL 12/05/22 12/05/22 12/06/22 Range/Units 16:33 19:57 06:02 RBC (4.30-5.90) m/uL Hgb (13.0-17.5) gm/dL Hct (39.0-53.0) % Sodium (137-145) mmol/L BUN (9-20) mg/dL Creatinine (0.66-1.25) mg/dL Glucose (74-99) mg/dL POC Glucose (mg/dL) 149 H 168 H 133 H (70-110) mg/dL Calcium (8.4-10.2) mg/dL Total Protein (6.3-8.2) g/dL Albumin (3.5-5.0) g/dL Microbiology - Last 24 Hours (Table) 12/03/22 06:08 Blood Culture - Preliminary Blood
[2022-12-06 08:38] LABS: HCT 28.6 % (39.0-53.0); HGB 9.5 gm/dL (13.0-17.5); MCH 31.3 pg (25.0-35.0); MCHC 33.2 g/dL (31.0-37.0); MCV 94.4 fL (80.0-100.0); Mean Platelet Volume 7.6; Platelet Count 162 k/uL (150-450); RBC 3.03 m/uL (4.30-5.90); RDW 14.7 % (11.5-15.5); WBC 3.7 k/uL (3.8-10.6)
[2022-12-06 08:53] LABS: African American GFR (CKD) 72 (>60 ml/min/1.73 sqM); Anion Gap 11 mmol/L; Blood Urea Nitrogen 21 mg/dL (9-20); Calcium 7.6 mg/dL (8.4-10.2); Carbon Dioxide 22 mmol/L (22-30); Chloride 101 mmol/L (98-107); Glucose 149 mg/dL (74-99); Non-African American GFR(CKD) 62 (>60 ml/min/1.73 sqM); Potassium 4.4 mmol/L (3.5-5.1); Sodium 134 mmol/L (137-145)
[2022-12-06] MEDS ORDERED: ALPRAZolam 0.5 MG TAB PO PRN (08:54)
[2022-12-06] MEDS ORDERED: NITROGLYCERIN SL TABS 0.4 MG TAB SUBLINGUAL PRN (08:54)
[2022-12-06] MEDS ORDERED: ALPRAZolam 0.25 MG TAB PO PRN (08:54)
[2022-12-06] MEDS: metFORMIN 500 MG TAB PO SCH (09:31)
[2022-12-06] MEDS: FAMOTIDINE 20 MG TAB PO SCH ×2 (09:41→20:16)
[2022-12-06] MEDS: ASPIRIN 81 MG PO SCH (09:41)
[2022-12-06] MEDS: HEPARIN SODIUM,PORCINE/PF 5,000 UNIT/0.5 ML SYRINGE SQ SCH ×3 (09:41→23:49)
[2022-12-06] MEDS: LOSARTAN 50 MG TAB PO SCH (09:41)
[2022-12-06] MEDS: FUROSEMIDE 10 MG/ML 4 ML VIAL IV SCH ×2 (09:41→20:16)
[2022-12-06] MEDS: SODIUM CHLORIDE 0.9% 1,000 ML in EMPTY BAG 1 BAG IV SCH (09:44)
[2022-12-06] MEDS ORDERED: VERAPAMIL 2.5 MG/ML 2 ML AMP ONE (10:36)
[2022-12-06] MEDS ORDERED: HEPARIN SODIUM 1,000 UN/ML (10ML VL) ONE (10:37)
[2022-12-06] MEDS: METOCLOPRAMIDE 5 MG/ML 2 ML VIAL IVP PRN (10:37)
[2022-12-06] MEDS ORDERED: IV FLUID CONTINUATION 975 ML IV ONE (10:57)
[2022-12-06] MEDS ORDERED: MIDAZOLAM 2 MG/2 ML VIAL IVP ONE (11:08)
[2022-12-06] MEDS ORDERED: LIDOCAINE 1% INJ 10MG/ML (5 ML VIAL-PF) SQ ONE (11:10)
[2022-12-06] MEDS ORDERED: VERAPAMIL SYRINGE (5 MG/10 ML) INTRAARTER ONE (11:12)
[2022-12-06] MEDS ORDERED: HEPARIN SODIUM 1,000 UN/ML (10ML VL) IVP ONE (11:12)
[2022-12-06] MEDS ORDERED: RX INFO: IV CONTRAST WAS GIVEN 1 EACH MISC MISCELLANE PRN (11:24)
[2022-12-06] MEDS ORDERED: IOPAMIDOL-370 100ML BTL INJ ONE (11:25)
[2022-12-06] MEDS ORDERED: SODIUM CHLORIDE 0.9% 1,000 ML IV SCH (11:30)
--- NOTE | 2022-12-06 11:31 | P.PCN ---
Date of Procedure: 12/06/22 Operative Findings: CARDIAC CATHETERIZATION PERFORMING PHYSICIAN: Mike Cordoba MD, RPVI PROCEDURE PERFORMED: 1. Selective right and left coronary angiogram 2. Left heart catheterization 3. Ultrasound-guided access of the right radial artery INDICATION: Acute non-ST elevation myocardial infarction COMPLICATION: None APPROACH: Right radial artery LEVEL OF SEDATION: Moderate with a sedation length of 12 minutes PROCEDURE DESCRIPTION: After obtaining an informed consent, the patient was brought to cardiac process laboratory specialist. Local anesthesia was performed using lidocaine subcutaneously. The right radial artery was cannulated using Seldinger technique, the guidewire passed easily, following that we advanced a 5-[place]izen [place] sheath dilator assembly, the wire and dilator were removed and sheath was flushed. Following that, 2 mg of verapamil along with 5000 unit heparin were given. Selective right and left coronary angiogram using a 6-[place] JR4 and JL 3.5 catheters. Following that we did left heart catheterization using 6-[place] pigtail catheter. The procedure was completed there was no complication. SELECTIVE CORONARY ANGIOGRAM: The right coronary artery: Large-caliber vessel and a dominant vessel appears to be angiographically normal. Left main: It is angiographically normal. The left circumflex: Large-caliber vessel and codominant vessel. The proximal LCx gives rise into an OM1 which is a large caliber vessel was intermediate to severe disease in the proximal portion. The left anterior descending artery: The proximal LAD has [id number] disease appeared to be in the range of 30- 40%. HEMODYNAMICS: The LVEDP was 13 mmHg was no gradient was identified across aortic valve CONCLUSION: 1. Intermediate to severe disease involving the ostial of OM1 2. Intermediate disease involving the proximal LAD 3. Elevated left-sided filling pressure POSTPROCEDURE MANAGEMENT: Medical treatment
[2022-12-06 11:40] LABS: Glucose,Whole Blood 156 mg/dL (70-110)
--- NOTE | 2022-12-06 16:00 | P.PN ---
Subjective Progress Note Date: 12/05/22 Principal diagnosis: Left foot tenosynovitis and MSSA bacteremia Patient is a 57-year-old male with a past medical history significant for diabetes mellitus recent admission to the hospital for left foot tenosynovitis and did have a MSSA bacteremia repeat blood cultures were negative MRI did not show any abscess and podiatry recommended against any surgical intervention patient did get a PICC line and was advised 6-day course of IV cefazolin and oral Flagyl patient is presenting back to [facility] ER for evaluation of shortness of breath, patient echocardiogram which shows EF of 45% and concern for pericarditis being monitored by cardiology. On today's evaluation that is 12/05/2022 the patient remains to be afebrile, patient complaining of more shortness of breath today no chest pain, no cough no vomiting no abdominal pain and no diarrhea Objective - Vital Signs Vital signs: Vital Signs Temp 97.8 F 12/05/22 04:00 Pulse 100 12/05/22 04:00 Resp 16 12/05/22 04:00 BP 176/92 12/05/22 04:00 Pulse Ox 93 L 12/05/22 04:00 FiO2 Intake & Output 12/04/22 12/05/22 12/05/22 18:59 06:59 18:59 Intake Total 480 Output Total 2 500 Balance 478 -500 Weight 133.4 kg Intake: Oral 480 Output: Urine 500 Stool 2 Other: Voiding Method Toilet Toilet Urinal Urinal # Voids 0 - Exam GENERAL DESCRIPTION: A middle-age male lying in bed in no distress RESPIRATORY SYSTEM: Unlabored breathing , decreased breath sounds at bases HEART: S1 S2 regular rate and rhythm , ABDOMEN: Soft , no tenderness EXTREMITIES: Left foot is currently wrapped in Elei wrap - Labs CBC & Chem 7: 12/06/22 08:12 12/06/22 08:12 Labs: Abnormal Lab Results - Last 24 Hours (Table) 12/04/22 12/04/22 12/04/22 Range/Units 11:13 11:27 16:23 Sodium 136 L (137-145) mmol/L Creatinine 1.54 H (0.66-1.25) mg/dL Glucose 155 H (74-99) mg/dL POC Glucose (mg/dL) 158 H 184 H (70-110) mg/dL Calcium 7.8 L (8.4-10.2) mg/dL 12/04/22 12/05/22 Range/Units 20:13 05:58 Sodium (137-145) mmol/L Creatinine (0.66-1.25) mg/dL Glucose (74-99) mg/dL POC Glucose (mg/dL) 196 H 177 H (70-110) mg/dL Calcium (8.4-10.2) mg/dL Microbiology - Last 24 Hours (Table) 12/03/22 06:08 Blood Culture - Preliminary Blood Assessment and Plan (1) Tenosynovitis of left foot Current Visit: Yes Status: Acute Code(s): M65.9 - SYNOVITIS AND TENOSYNOVITIS, UNSPECIFIED SNOMED Code(s): 9744304898024258 (2) MSSA bacteremia Current Visit: No Status: Acute Code(s): R78.81 - BACTEREMIA; B95.61 - METHICILLIN SUSCEP STAPH INFCT CAUSING DIS CLASSD ELSWHR SNOMED Code(s): 938268856 Plan: 1patient with recent admission to the hospital with left diabetic foot inf ection with evidence of tenosynovitis and MSSA bacteremia patient seem to have shown clinical response to the cefazolin now presented to hospital with increasing shortness of breath and did have evidence of bilateral effusion and concern for pericardial fusion and pericarditis for which cardiology is following the patient 2-blood cultures were requested 12/03/2022, Culture so far negative. 4we will continue patient on cefazolin 2 g 8-hour monitor clinical course closely may benefit from a repeat echo to make sure no evidence of any worsening effusion discussed with the patient RN Time with Patient: Less than 30
--- NOTE | 2022-12-06 16:03 | P.PN ---
Subjective Progress Note Date: 12/06/22 Principal diagnosis: Left foot tenosynovitis and MSSA bacteremia this is a telehealth visit Patient is a 57-year-old male with a past medical history significant for diabetes mellitus recent admission to the hospital for left foot tenosynovitis and did have a MSSA bacteremia repeat blood cultures were negative MRI did not show any abscess and podiatry recommended against any surgical intervention patient did get a PICC line and was advised 6-day course of IV cefazolin and oral Flagyl patient is presenting back to [facility] ER for evaluation of shortness of breath, patient echocardiogram which shows EF of 45% and concern for pericarditis being monitored by cardiology.patient the patient is s/p cardiac cath completed 12/06/2022 noticed to have two-vessel disease recommending medical treatment on today's evaluation that is 12/06/2022 the patient denies having any fever or any chills he is breathing comfortably currently on room air satting 97% no chest pain no nausea vomiting abdominal pain or pain to the left foot area Objective - Vital Signs Vital signs: Vital Signs Temp 98.7 F 12/06/22 03:19 Pulse 82 12/06/22 03:19 Resp 20 12/06/22 14:00 BP 124/74 12/06/22 03:19 Pulse Ox 96 12/06/22 06:18 FiO2 Intake & Output 12/05/22 12/06/22 12/06/22 18:59 06:59 18:59 Intake Total 898 75 Output Total 625 1025 900 Balance 695 -6402 -471 Weight 133.1 kg 133.1 kg Intake: IV 75 Oral 898 Output: Urine 625 1025 900 Other: Voiding Method Toilet Urinal - Exam GENERAL DESCRIPTION: A middle-age male lying in bed in no distress RESPIRATORY SYSTEM: Unlabored breathing , Clear to auscultation anteriorly Left foot is currently dressed Exam completed with the help of AUTO DESIGN DETAILER - Labs CBC & Chem 7: 12/06/22 08:12 12/06/22 08:12 Labs: Abnormal Lab Results - Last 24 Hours (Table) 12/05/22 12/05/22 12/06/22 Range/Units 16:33 19:57 06:02 WBC (3.8-10.6) k/uL RBC (4.30-5.90) m/uL Hgb (13.0-17.5) gm/dL Hct (39.0-53.0) % Sodium (137-145) mmol/L BUN (9-20) mg/dL Creatinine (0.66-1.25) mg/dL Glucose (74-99) mg/dL POC Glucose (mg/dL) 149 H 168 H 133 H (70-110) mg/dL Calcium (8.4-10.2) mg/dL 12/06/22 12/06/22 12/06/22 Range/Units 08:12 08:12 11:37 WBC 3.7 L (3.8-10.6) k/uL RBC 3.03 L (4.30-5.90) m/uL Hgb 9.5 L (13.0-17.5) gm/dL Hct 28.6 L (39.0-53.0) % Sodium 134 L (137-145) mmol/L BUN 21 H (9-20) mg/dL Creatinine 1.29 H (0.66-1.25) mg/dL Glucose 149 H (74-99) mg/dL POC Glucose (mg/dL) 156 H (70-110) mg/dL Calcium 7.6 L (8.4-10.2) mg/dL Microbiology - Last 24 Hours (Table) 12/03/22 06:08 Blood Culture - Preliminary Blood Assessment and Plan (1) Tenosynovitis of left foot Current Visit: Yes Status: Acute Code(s): M65.9 - SYNOVITIS AND TENOSYNOVITIS, UNSPECIFIED SNOMED Code(s): 8472039933044402 (2) MSSA bacteremia Current Visit: No Status: Acute Code(s): R78.81 - BACTEREMIA; B95.61 - METHICILLIN SUSCEP STAPH INFCT CAUSING DIS CLASSD ELSWHR SNOMED Code(s): 347252541 Plan: 1patient with recent admission to the hospital with left diabetic foot infection with evidence of tenosynovitis and MSSA bacteremia patient seem to have shown clinical response to the cefazolin now presented to hospital with increasing shortness of breath and did have evidence of bilateral effusion and concern for pericardial fusion and pericarditis for which cardiology is following the patient 2-blood cultures were requested 12/03/2022, Culture so far negative. 4Patient will be continued on cefazolin 2 g every 8 hours and will monitor clinical course closely questions concerns answered Time with Patient: Less than 30
[2022-12-06 16:11] LABS: Glucose,Whole Blood 169 mg/dL (70-110)
[2022-12-06 19:56] LABS: Glucose,Whole Blood 237 mg/dL (70-110)
[2022-12-06] MEDS: ATORVASTATIN 20 MG TAB PO SCH (20:16)
[2022-12-07] MEDS: METOCLOPRAMIDE 5 MG/ML 2 ML VIAL IVP PRN (02:58)
[2022-12-07 06:08] LABS: Glucose,Whole Blood 184 mg/dL (70-110)
[2022-12-07] MEDS: carvediloL 12.5 MG TAB PO SCH ×2 (06:12→17:35)
[2022-12-07] MEDS: INSULIN ASPART (NovoLOG) 100 UNIT/ML VIAL SQ SCH ×4 (06:12→20:41)
--- NOTE | 2022-12-07 06:31 | P.PN ---
Subjective Progress Note Date: 12/07/22 Principal diagnosis: Acute coronary syndrome/congestive heart failure The patient is a 57-year-old gentleman with a past medical history significant for diabetes and hypertension and dyslipidemia who was admitted to the hospital initially with left foot infection. Troponin was elevated. He was diagnosed with heart failure as well. And he underwent an echo which revealed impaired LV function was EF around 40%. He was experiencing symptoms of shortness of breath but no pain in the chest. December 052022 He was seen this morning. He continues to have shortness of breath mainly with laying flat in bed consistent with orthopnea and he remains in failure. The examination is consistent with bilateral rhonchi/diminished breathing sounds bilaterally and also mild bilateral lower extremity edema. The pressure remains elevated didn't point to increase the dose of carvedilol and continue aspirin and statin and Lasix IV. He'll need to undergo a heart catheterization in the next 24-48 hours 12/06/2022 The patient was seen and evaluated this morning. He remains hypoxic require some oxygen but his shortness of breath with laying flat/orthopnea has improved significantly and he is laying flat in bed this morning. He still have lower extremity edema more prominent on the left than the right. No pain in the chest. I am going to pursue with a heart catheterization later on today unless the kidney function is worse. We'll follow-up with the kidney function from the morning. 12/07/2022 The patient was seen and evaluated this morning. He is not feeling well and he continues to be short of breath with laying flat in bed. Clearly distal in volume overload. He still have diminished breathing sounds bilaterally and severe bilateral lower extremity edema. We did perform a heart catheterization yesterday and that showed elevated left-sided filling pressure with intermediate to severe disease involving OM1 and intermediate disease involving the proximal LAD, I felt both lesions are bystander lesions and not culprit lesions and for that reason I decided to pursue medical treatment only giving that his kidney function is not functioning normally. Beside that the pressure today remains elevated and going to add small dose of amlodipine in addition to carvedilol and losartan. He is on maximize medical treatment into of carvedilol and losartan. Beside that I am concerned about secondary hypertension and for that reason I am going to obtain a renal duplex study to rule out renal artery stenosis. In addition to that point to either Plavix to the current medical regimen to be on dual antiplatelet therapy since the troponin was elevated and also ongoing to increase the dose of Lasix in the light of elevated left ventricular end- diastolic pressure of almost 35 mmHg. Assessment Heart failure exacerbation related to heart failure with reduced ejection fraction Coronary artery disease as described above Volume overload Uncontrolled blood pressure Renal failure Left foot infection Plan Adding Plavix to the current medical regimen Add amlodipine to the current medical regimen Rule out secondary hypertension. Obtain renal duplex study Increase the dose of Lasix Further recommendation to follow Objective - Vital Signs Vital signs: Vital Signs Temp 97.9 F 12/06/22 20:00 Pulse 88 12/07/22 04:00 Resp 16 12/07/22 04:00 BP 171/111 12/07/22 04:00 Pulse Ox 97 12/07/22 04:00 FiO2 Intake & Output 12/06/22 12/06/22 12/07/22 06:59 18:59 06:59 Intake Total 75 540 Output Total 8941 077 7438 Balance -1025 -825 -460 Weight 133.1 kg 133.1 kg 132.6 kg Intake: IV 75 Oral 540 Output: Urine 6818 252 8094 Other: Voiding Method Toilet Toilet Urinal Urinal # Voids 1 - Labs CBC & Chem 7: 12/06/22 08:12 12/06/22 08:12 Labs: Abnormal Lab Results - Last 24 Hours (Table) 12/06/22 12/06/22 12/06/22 Range/Units 08:12 08:12 11:37 WBC 3.7 L (3.8-10.6) k/uL RBC 3.03 L (4.30-5.90) m/uL Hgb 9.5 L (13.0-17.5) gm/dL Hct 28.6 L (39.0-53.0) % Sodium 134 L (137-145) mmol/L BUN 21 H (9-20) mg/dL Creatinine 1.29 H (0.66-1.25) mg/dL Glucose 149 H (74-99) mg/dL POC Glucose (mg/dL) 156 H (70-110) mg/dL Calcium 7.6 L (8.4-10.2) mg/dL 12/06/22 12/06/22 12/07/22 Range/Units 16:09 19:54 06:07 WBC (3.8-10.6) k/uL RBC (4.30-5.90) m/uL Hgb (13.0-17.5) gm/dL Hct (39.0-53.0) % Sodium (137-145) mmol/L BUN (9-20) mg/dL Creatinine (0.66-1.25) mg/dL Glucose (74-99) mg/dL POC Glucose (mg/dL) 169 H 237 H 184 H (70-110) mg/dL Calcium (8.4-10.2) mg/dL Microbiology - Last 24 Hours (Table) 12/03/22 06:08 Blood Culture - Preliminary Blood
[2022-12-07] MEDS ORDERED: HEPARIN SODIUM,PORCINE 2,500 UNIT in SODIUM CHLORIDE 0.9% 250 ML IRRIGATION PRN (07:00)
[2022-12-07] MEDS ORDERED: HEPARIN SODIUM,PORCINE 10,000 UNIT in SODIUM CHLORIDE 0.9% 1,000 ML IRRIGATION PRN (07:00)
[2022-12-07] MEDS: LOSARTAN 50 MG TAB PO SCH (10:30)
[2022-12-07] MEDS: FUROSEMIDE 10 MG/ML 10 ML VIAL IV SCH ×2 (10:30→20:41)
[2022-12-07] MEDS: ASPIRIN 81 MG PO SCH (10:31)
[2022-12-07] MEDS: FAMOTIDINE 20 MG TAB PO SCH ×2 (10:31→20:41)
[2022-12-07] MEDS: CLOPIDOGREL 75 MG TAB PO SCH (10:31)
[2022-12-07] MEDS: amLODIPine 2.5 MG TAB PO SCH (10:31)
[2022-12-07] MEDS: HEPARIN SODIUM,PORCINE/PF 5,000 UNIT/0.5 ML SYRINGE SQ SCH ×3 (10:31→23:33)
[2022-12-07 11:48] LABS: Glucose,Whole Blood 168 mg/dL (70-110)
--- NOTE | 2022-12-07 13:18 | P.PN ---
Subjective Progress Note Date: 12/07/22 Principal diagnosis: Left foot tenosynovitis and MSSA bacteremia this is a telehealth visit Patient is a 57-year-old male with a past medical history significant for diabetes mellitus recent admission to the hospital for left foot tenosynovitis and did have a MSSA bacteremia repeat blood cultures were negative MRI did not show any abscess and podiatry recommended against any surgical intervention patient did get a PICC line and was advised 6-day course of IV cefazolin and oral Flagyl patient is presenting back to [facility] ER for evaluation of shortness of breath, patient echocardiogram which shows EF of 45% and concern for pericarditis being monitored by cardiology.patient the patient is s/p cardiac cath completed 12/06/2022 noticed to have two-vessel disease recommending medical treatment on today's evaluation that is 12/07/2022 the patient is afebrile , c/o shortness of breath , not requiring supplemental oxygen , no chest pain no nausea vomiting abdominal pain or pain to the left foot area Objective - Vital Signs Vital signs: Vital Signs Temp 97.9 F 12/06/22 20:00 Pulse 88 12/07/22 04:00 Resp 16 12/07/22 04:00 BP 171/111 12/07/22 04:00 Pulse Ox 94 L 12/07/22 08:37 FiO2 Intake & Output 12/06/22 12/07/22 12/07/22 18:59 06:59 18:59 Intake Total 75 540 Output Total 900 1000 Balance -825 -460 Weight 133.1 kg 132.6 kg Intake: IV 75 Oral 540 Output: Urine 900 1000 Other: Voiding Method Toilet Urinal # Voids 1 - Exam GENERAL DESCRIPTION: A middle-age male lying in bed in no distress RESPIRATORY SYSTEM: Unlabored breathing , Clear to auscultation anteriorly Left foot is currently dressed Exam completed with the help of SEXOLOGIST - Labs CBC & Chem 7: 12/06/22 08:12 12/06/22 08:12 Labs: Abnormal Lab Results - Last 24 Hours (Table) 12/06/22 12/06/22 12/06/22 Range/Units 11:37 16:09 19:54 POC Glucose (mg/dL) 156 H 169 H 237 H (70-110) mg/dL 12/07/22 Range/Units 06:07 POC Glucose (mg/dL) 184 H (70-110) mg/dL Microbiology - Last 24 Hours (Table) 12/03/22 06:08 Blood Culture - Preliminary Blood Assessment and Plan (1) Tenosynovitis of left foot Current Visit: Yes Status: Acute Code(s): M65.9 - SYNOVITIS AND TENOSYNOVITIS, UNSPECIFIED SNOMED Code(s): 7588839412502036 (2) MSSA bacteremia Current Visit: No Status: Acute Code(s): R78.81 - BACTEREMIA; B95.61 - METHICILLIN SUSCEP STAPH INFCT CAUSING DIS CLASSD [id number] SNOMED Code(s): 735101910 Plan: this was a telehealth visit 1patient with recent admission to the hospital with left diabetic foot infection with evidence of tenosynovitis and MSSA bacteremia patient seem to have shown clinical response to the cefazolin now presented to hospital with increasing shortness of breath and did have evidence of bilateral effusion and concern for pericardial fusion and pericarditis for which cardiology is following the patient 2-blood cultures done this admission on 12/03/2022, so far negative. 4Patient to continue on cefazolin 2 g every 8 hours and will monitor clinical course closely Time with Patient: Less than 30
[2022-12-07] MEDS: SODIUM CHLORIDE 0.9% 1,000 ML in EMPTY BAG 1 BAG IV SCH ×4 (15:51→21:28)
[2022-12-07 16:16] LABS: Glucose,Whole Blood 159 mg/dL (70-110)
[2022-12-07 19:58] LABS: Glucose,Whole Blood 200 mg/dL (70-110)
[2022-12-07] MEDS: ATORVASTATIN 20 MG TAB PO SCH (20:41)
[2022-12-07] MEDS: ONDANSETRON 4 MG/2 ML VIAL IVP PRN (20:43)
[2022-12-08] MEDS: SODIUM CHLORIDE 0.9% 1,000 ML in EMPTY BAG 1 BAG IV SCH ×3 (01:19→20:21)
[2022-12-08] MEDS: ACETAMINOPHEN TAB 325 MG TAB PO PRN ×2 (03:24→09:06)
[2022-12-08] MEDS: carvediloL 12.5 MG TAB PO SCH ×2 (05:44→18:00)
[2022-12-08 06:22] LABS: Glucose,Whole Blood 157 mg/dL (70-110)
[2022-12-08] MEDS: INSULIN ASPART (NovoLOG) 100 UNIT/ML VIAL SQ SCH ×4 (06:27→20:22)
--- NOTE | 2022-12-08 06:53 | P.PN ---
Subjective Progress Note Date: 12/08/22 Principal diagnosis: Acute coronary syndrome/congestive heart failure The patient is a 57-year-old gentleman with a past medical history significant for diabetes and hypertension and dyslipidemia who was admitted to the hospital initially with left foot infection. Troponin was elevated. He was diagnosed with heart failure as well. And he underwent an echo which revealed impaired LV function was EF around 40%. He was experiencing symptoms of shortness of breath but no pain in the chest. December 052022 He was seen this morning. He continues to have shortness of breath mainly with laying flat in bed consistent with orthopnea and he remains in failure. The examination is consistent with bilateral rhonchi/diminished breathing sounds bilaterally and also mild bilateral lower extremity edema. The pressure remains elevated didn't point to increase the dose of carvedilol and continue aspirin and statin and Lasix IV. He'll need to undergo a heart catheterization in the next 24-48 hours 12/06/2022 The patient was seen and evaluated this morning. He remains hypoxic require some oxygen but his shortness of breath with laying flat/orthopnea has improved significantly and he is laying flat in bed this morning. He still have lower extremity edema more prominent on the left than the right. No pain in the chest. I am going to pursue with a heart catheterization later on today unless the kidney function is worse. We'll follow-up with the kidney function from the morning. 12/07/2022 The patient was seen and evaluated this morning. He is not feeling well and he continues to be short of breath with laying flat in bed. Clearly distal in volume overload. He still have diminished breathing sounds bilaterally and severe bilateral lower extremity edema. We did perform a heart catheterization yesterday and that showed elevated left-sided filling pressure with intermediate to severe disease involving OM1 and intermediate disease involving the proximal LAD, I felt both lesions are bystander lesions and not culprit lesions and for that reason I decided to pursue medical treatment only giving that his kidney function is not functioning normally. Beside that the pressure today remains elevated and going to add small dose of amlodipine in addition to carvedilol and losartan. He is on maximize medical treatment into of carvedilol and losartan. Beside that I am concerned about secondary hypertension and for that reason I am going to obtain a renal duplex study to rule out renal artery stenosis. In addition to that point to either Plavix to the current medical regimen to be on dual antiplatelet therapy since the troponin was elevated and also ongoing to increase the dose of Lasix in the light of elevated left ventricular end- diastolic pressure of almost 35 mmHg. December 082022 The patient was seen and evaluated this morning. His shortness of breath has improved significantly but he continues to have bilateral lower extremity edema. Currently he is not on oxygen and his oxygen saturation within normal limits on room air. He is on Lasix at 80 mg IV twice a day. The pressure overall appears to be somewhat better on the current medical regimen. He has been diuresing well. We are waiting for the results of the blood work from the morning including the BUN and creatinine and electrolytes. He continues to receive the antibiotic regarding the foot infection. From the cardiovascular standpoint of view, I would continue the current medical regimen including the current dose of Lasix IV for additional 24 hours and follow-up with a blood work from the morning unless his BUN and creatinine came in to be quite abnormal. He still in failure. Meanwhile continue dual antiplatelet therapy along with a statin along with beta og and ARB Assessment Heart failure exacerbation related to heart failure with reduced ejection fra ction Coronary artery disease as described above Cardiomyopathy with EF around 40% Hypertension appears to be better controlled Renal failure Left foot infection Plan Continue the current medical regimen Continue IV Lasix for additional 24 hours Follow-up with the kidney function and electrolytes from the morning Follow-up with the patient Objective - Vital Signs Vital signs: Vital Signs Temp 97.9 F 12/07/22 20:00 Pulse 99 12/08/22 04:00 Resp 18 12/08/22 04:00 BP 164/112 12/08/22 04:00 Pulse Ox 93 L 12/08/22 04:00 FiO2 Intake & Output 12/07/22 12/07/22 12/08/22 06:59 18:59 06:59 Intake Total 540 540 Output Total 1000 2125 1550 Balance -725 -0873 -2895 Weight 132.6 kg 130.4 kg Intake: Oral 540 540 Output: Urine 1000 2125 1550 Other: Voiding Method Toilet Toilet Urinal Urinal # Voids 1 - Labs CBC & Chem 7: 12/06/22 08:12 12/06/22 08:12 Labs: Abnormal Lab Results - Last 24 Hours (Table) 12/07/22 12/07/22 12/07/22 Range/Units 11:47 16:14 19:57 POC Glucose (mg/dL) 168 H 159 H 200 H (70-110) mg/dL 12/08/22 Range/Units 06:20 POC Glucose (mg/dL) 157 H (70-110) mg/dL
[2022-12-08] MEDS: ASPIRIN 81 MG PO SCH (09:06)
[2022-12-08] MEDS: amLODIPine 2.5 MG TAB PO SCH (09:06)
[2022-12-08] MEDS: FAMOTIDINE 20 MG TAB PO SCH ×2 (09:06→20:21)
[2022-12-08] MEDS: CLOPIDOGREL 75 MG TAB PO SCH (09:06)
[2022-12-08] MEDS: LOSARTAN 50 MG TAB PO SCH (09:07)
[2022-12-08] MEDS: FUROSEMIDE 10 MG/ML 10 ML VIAL IV SCH ×2 (09:07→20:21)
[2022-12-08] MEDS: HEPARIN SODIUM,PORCINE/PF 5,000 UNIT/0.5 ML SYRINGE SQ SCH ×3 (09:07→23:18)
[2022-12-08 11:27] LABS: Glucose,Whole Blood 185 mg/dL (70-110)
--- NOTE | 2022-12-08 15:01 | P.PN ---
Subjective Progress Note Date: 12/05/22 57 y/omale with past medical history of diabetes mellitus, hypertension, GERD. PCP is Dr. Trevino He was recently discharged from hospital for osteomyelitis of the left foot. Presents because of for some dyspnea over several days but 5 days, associated with some cough associated with agreed and white phlegm. and discomfort in the chest chest pain only with cough. Also patient has diarrhea for the last 5 days and since his been discharged from. Patient still complaining of from left leg and foot swelling and infection. He denies any urinary symptoms, no neurological symptoms. He denies smoking alcohol or illicit drugs. Patient is afebrile and vitals are stable. Blood pressure is elevated off the high side He has unremarkable CBC except for mild anemia at 11.1. INR 1.1. D-dimer elevated 1.85. BNP under enzymes are unremarkable Troponin elevated 0.09 and 0.08. ProBNP is significantly elevated 79913. Viruses and detected including influenza, RSV, coronavirus Chest x-ray: Correlate for volume overload CTA of the chest revealed no pulmonary embolism but his large bilateral pleural effusion and mild bibasilar atelectasis EKG showing sinus tachycardia [address]-T changes Objective - Vital Signs Vital signs: Vital Signs Temp 97.4 F L 12/05/22 11:45 Pulse 87 12/05/22 11:45 Resp 18 12/05/22 11:45 BP 140/89 12/05/22 11:45 Pulse Ox 91 L 12/05/22 11:45 FiO2 Intake & Output 12/04/22 12/05/22 12/05/22 18:59 06:59 18:59 Intake Total 480 240 Output Total 2 500 Balance 478 -500 240 Weight 133.4 kg Intake: Oral 480 240 Output: Urine 500 Stool 2 Other: Voiding Method Toilet Toilet Urinal Urinal # Voids 0 - Exam GENERAL: The patient is alert and oriented x3, not in any acute distress. Well developed, well nourished. HEENT: Pupils are round and equally reacting to light. EOMI. No scleral icterus. No conjunctival pallor. Normocephalic, atraumatic. No pharyngeal erythema. No thyromegaly. CARDIOVASCULAR: S1 and S2 present. No murmurs, rubs, or gallops. PULMONARY: Chest is clear to auscultation, no wheezing or crackles. ABDOMEN: Soft, nontender, nondistended, normoactive bowel sounds. No palpable organomegaly. MUSCULOSKELETAL: No joint swelling or deformity. EXTREMITIES: No cyanosis, clubbing, or pedal edema. Left foot bandaged seen NEUROLOGICAL: Gross neurological examination did not reveal any focal deficits. SKIN: No rashes. - Labs CBC & Chem 7: 12/06/22 08:12 12/06/22 08:12 Labs: Abnormal Lab Results - Last 24 Hours (Table) 12/04/22 12/04/22 12/05/22 Range/Units 16:23 20:13 05:58 RBC (4.30-5.90) m/uL Hgb (13.0-17.5) gm/dL Hct (39.0-53.0) % Sodium (137-145) mmol/L BUN (9-20) mg/dL Creatinine (0.66-1.25) mg/dL Glucose (74-99) mg/dL POC Glucose (mg/dL) 184 H 196 H 177 H (70-110) mg/dL Calcium (8.4-10.2) mg/dL Total Protein (6.3-8.2) g/dL Albumin (3.5-5.0) g/dL 12/05/22 12/05/22 12/05/22 Range/Units 08:35 08:35 11:35 RBC 3.03 L (4.30-5.90) m/uL Hgb 9.4 L (13.0-17.5) gm/dL Hct 27.6 L (39.0-53.0) % Sodium 134 L (137-145) mmol/L BUN 21 H (9-20) mg/dL Creatinine 1.63 H (0.66-1.25) mg/dL Glucose 144 H (74-99) mg/dL POC Glucose (mg/dL) 167 H (70-110) mg/dL Calcium 7.5 L (8.4-10.2) mg/dL Total Protein 5.8 L (6.3-8.2) g/dL Albumin 3.0 L (3.5-5.0) g/dL Microbiology - Last 24 Hours (Table) 12/03/22 06:08 Blood Culture - Preliminary Blood Assessment and Plan Assessment: Acute CHF unknown ejection fraction Bilateral pleural effusion most likely secondary to above Mildly elevated troponin secondary to above Hypertension, uncontrolled, present on admission steomyelitis and pain left foot, recent from this facility on antibiotic Diabetes Mellitus History of GERD/Reflux obesity with BMI of 34.7 Monitor vital signs Monitor CBC Monitor CMP Continue telemetry monitoring Continue heparin drip Continue IV cefazolin Strict I's and O's, daily weights, continue IV Lasix 4012 echocardiogram revealed EF of 40% with moderate pulmonary hypertension, pericarditis. ID following Cardiology following,Cardiac workup with cardiac catheterization will need to be addressed once patient's osteomyelitis is resolved Labs and medication were reviewed.. Continue same treatment. Continue with symptomatic treatment. Monitor labs and vitals. DVT and GI prophylaxis. Further recommendations as per clinical course of the patient
--- NOTE | 2022-12-08 15:04 | P.PN ---
Subjective Progress Note Date: 12/06/22 57 y/omale with past medical history of diabetes mellitus, hypertension, GERD. PCP is Dr. Trevino He was recently discharged from hospital for osteomyelitis of the left foot. Presents because of for some dyspnea over several days but 5 days, associated with some cough associated with agreed and white phlegm. and discomfort in the chest chest pain only with cough. Also patient has diarrhea for the last 5 days and since his been discharged from. Patient still complaining of from left leg and foot swelling and infection. He denies any urinary symptoms, no neurological symptoms. He denies smoking alcohol or illicit drugs. Patient is afebrile and vitals are stable. Blood pressure is elevated off the high side He has unremarkable CBC except for mild anemia at 11.1. INR 1.1. D-dimer elevated 1.85. BNP under enzymes are unremarkable Troponin elevated 0.09 and 0.08. ProBNP is significantly elevated 84858. Viruses and detected including influenza, RSV, coronavirus Chest x-ray: Correlate for volume overload CTA of the chest revealed no pulmonary embolism but his large bilateral pleural effusion and mild bibasilar atelectasis EKG showing sinus tachycardia [address]-T changes 12/06/2022 Patient is seen and evaluated in room at bedside; denies any specific complaints; patient is status post cardiac catheterization Vital signs are stable Cardiac catheterization revealing intermediate to severe disease involving the posterior of OM1 and intermediate disease involving proximal LAD, elevated left- sided filling pressures; cardiology on board and recommending to continue with medical management -- Patient remains on IV antibiotics per ID recommendations Objective - Vital Signs Vital signs: Vital Signs Temp 98.7 F 12/06/22 03:19 Pulse 82 12/06/22 03:19 Resp 20 12/06/22 03:19 BP 124/74 12/06/22 03:19 Pulse Ox 96 12/06/22 06:18 FiO2 Intake & Output 12/05/22 12/06/22 12/06/22 18:59 06:59 18:59 Intake Total 898 75 Output Total 625 1025 Balance 273 -1025 75 Weight 133.1 kg Intake: IV 75 Oral 898 Output: Urine 625 1025 Other: Voiding Method Toilet Urinal - Exam GENERAL: The patient is alert and oriented x3, not in any acute distress. Well developed, well nourished. HEENT: Pupils are round and equally reacting to light. EOMI. No scleral icterus. No conjunctival pallor. Normocephalic, atraumatic. No pharyngeal erythema. No thyromegaly. CARDIOVASCULAR: S1 and S2 present. No murmurs, rubs, or gallops. PULMONARY: Chest is clear to auscultation, no wheezing or crackles. ABDOMEN: Soft, nontender, nondistended, normoactive bowel sounds. No palpable organomegaly. MUSCULOSKELETAL: No joint swelling or deformity. EXTREMITIES: No cyanosis, clubbing, or pedal edema. Left foot bandaged seen NEUROLOGICAL: Gross neurological examination did not reveal any focal deficits. SKIN: No rashes. - Labs CBC & Chem 7: 12/06/22 08:12 12/06/22 08:12 Labs: Abnormal Lab Results - Last 24 Hours (Table) 12/05/22 12/05/22 12/06/22 Range/Units 16:33 19:57 06:02 WBC (3.8-10.6) k/uL RBC (4.30-5.90) m/uL Hgb (13.0-17.5) gm/dL Hct (39.0-53.0) % Sodium (137-145) mmol/L BUN (9-20) mg/dL Creatinine (0.66-1.25) mg/dL Glucose (74-99) mg/dL POC Glucose (mg/dL) 149 H 168 H 133 H (70-110) mg/dL Calcium (8.4-10.2) mg/dL 12/06/22 12/06/22 12/06/22 Range/Units 08:12 08:12 11:37 WBC 3.7 L (3.8-10.6) k/uL RBC 3.03 L (4.30-5.90) m/uL Hgb 9.5 L (13.0-17.5) gm/dL Hct 28.6 L (39.0-53.0) % Sodium 134 L (137-145) mmol/L BUN 21 H (9-20) mg/dL Creatinine 1.29 H (0.66-1.25) mg/dL Glucose 149 H (74-99) mg/dL POC Glucose (mg/dL) 156 H (70-110) mg/dL Calcium 7.6 L (8.4-10.2) mg/dL Microbiology - Last 24 Hours (Table) 12/03/22 06:08 Blood Culture - Preliminary Blood Assessment and Plan Assessment: Acute CHF unknown ejection fraction Bilateral pleural effusion most likely secondary to above Mildly elevated troponin secondary to above Hypertension, uncontrolled, present on admission steomyelitis and pain left foot, recent from this facility on antibiotic Diabetes Mellitus History of GERD/Reflux obesity with BMI of 34.7 Monitor vital signs Monitor CBC Monitor CMP Continue telemetry monitoring Continue heparin drip Continue IV cefazolin Strict I's and O's, daily weights, continue IV Lasix 4012 echocardiogram revealed EF of 40% with moderate pulmonary hypertension, pericarditis. ID following Cardiology following,Cardiac workup with cardiac catheterization will need to be addressed once patient's osteomyelitis is resolved Labs and medication were reviewed.. Continue same treatment. Continue with symptomatic treatment. Monitor labs and vitals. DVT and GI prophylaxis. Further recommendations as per clinical course of the patient
--- NOTE | 2022-12-08 15:05 | P.PN ---
Subjective Progress Note Date: 12/07/22 57 y/omale with past medical history of diabetes mellitus, hypertension, GERD. PCP is Dr. Trevino He was recently discharged from hospital for osteomyelitis of the left foot. Presents because of for some dyspnea over several days but 5 days, associated with some cough associated with agreed and white phlegm. and discomfort in the chest chest pain only with cough. Also patient has diarrhea for the last 5 days and since his been discharged from. Patient still complaining of from left leg and foot swelling and infection. He denies any urinary symptoms, no neurological symptoms. He denies smoking alcohol or illicit drugs. Patient is afebrile and vitals are stable. Blood pressure is elevated off the high side He has unremarkable CBC except for mild anemia at 11.1. INR 1.1. D-dimer elevated 1.85. BNP under enzymes are unremarkable Troponin elevated 0.09 and 0.08. ProBNP is significantly elevated 88469. Viruses and detected including influenza, RSV, coronavirus Chest x-ray: Correlate for volume overload CTA of the chest revealed no pulmonary embolism but his large bilateral pleural effusion and mild bibasilar atelectasis EKG showing sinus tachycardia [address]-T changes 12/06/2022 Patient is seen and evaluated in room at bedside; denies any specific complaints; patient is status post cardiac catheterization Vital signs are stable Cardiac catheterization revealing intermediate to severe disease involving the posterior of OM1 and intermediate disease involving proximal LAD, elevated left- sided filling pressures; cardiology on board and recommending to continue with medical management -- Patient remains on IV antibiotics per ID recommendations 12/07/2022 Patient is seen and evaluated resting comfortably in bedside recliner; no complaint of chest pain or shortness of breath patient with recent admission to the hospital with left diabetic foot infection with evidence of tenosynovitis and MSSA bacteremia patient seem to have shown clinical response to the cefazolin now presented to hospital with increasing sh ortness of breath and did have evidence of bilateral effusion and concern for pericardial fusion and pericarditis for which cardiology is following the patient -blood cultures done this admission on 12/03/2022, so far negative. Patient to continue on cefazolin 2 g every 8 hours and will monitor clinical course closely Objective - Vital Signs Vital signs: Vital Signs Temp 98.3 F 12/07/22 08:00 Pulse 85 12/07/22 08:00 Resp 16 12/07/22 08:00 BP 142/53 12/07/22 08:00 Pulse Ox 94 L 12/07/22 08:37 FiO2 Intake & Output 12/06/22 12/07/22 12/07/22 18:59 06:59 18:59 Intake Total 75 540 Output Total 900 1000 Balance -825 -460 Weight 133.1 kg 132.6 kg Intake: IV 75 Oral 540 Output: Urine 900 1000 Other: Voiding Method Toilet Urinal # Voids 1 - Exam GENERAL: The patient is alert and oriented x3, not in any acute distress. Well developed, well nourished. HEENT: Pupils are round and equally reacting to light. EOMI. No scleral icterus. No conjunctival pallor. Normocephalic, atraumatic. No pharyngeal erythema. No thyromegaly. CARDIOVASCULAR: S1 and S2 present. No murmurs, rubs, or gallops. PULMONARY: Chest is clear to auscultation, no wheezing or crackles. ABDOMEN: Soft, nontender, nondistended, normoactive bowel sounds. No palpable organomegaly. MUSCULOSKELETAL: No joint swelling or deformity. EXTREMITIES: No cyanosis, clubbing, or pedal edema. Left foot bandaged seen NEUROLOGICAL: Gross neurological examination did not reveal any focal deficits. SKIN: No rashes. - Labs CBC & Chem 7: 12/06/22 08:12 12/06/22 08:12 Labs: Abnormal Lab Results - Last 24 Hours (Table) 12/06/22 12/06/22 12/07/22 Range/Units 16:09 19:54 06:07 POC Glucose (mg/dL) 169 H 237 H 184 H (70-110) mg/dL 12/07/22 Range/Units 11:47 POC Glucose (mg/dL) 168 H (70-110) mg/dL Microbiology - Last 24 Hours (Table) 12/03/22 06:08 Blood Culture - Preliminary Blood Assessment and Plan Assessment: Acute CHF unknown ejection fraction Bilateral pleural effusion most likely secondary to above Mildly elevated troponin secondary to above Hypertension, uncontrolled, present on admission steomyelitis and pain left foot, recent from this facility on antibiotic Diabetes Mellitus History of GERD/Reflux obesity with BMI of 34.7 Monitor vital signs Monitor CBC Monitor CMP Continue telemetry monitoring Continue heparin drip Continue IV cefazolin Strict I's and O's, daily weights, continue IV Lasix 4012 echocardiogram revealed EF of 40% with moderate pulmonary hypertension, pericarditis. ID following Cardiology following,Cardiac workup with cardiac catheterization will need to be addressed once patient's osteomyelitis is resolved Labs and medication were reviewed.. Continue same treatment. Continue with symptomatic treatment. Monitor labs and vitals. DVT and GI prophylaxis. Further recommendations as per clinical course of the patient
[2022-12-08 16:39] LABS: Glucose,Whole Blood 189 mg/dL (70-110)
--- NOTE | 2022-12-08 17:14 | P.PN ---
Subjective Progress Note Date: 12/08/22 57 y/omale with past medical history of diabetes mellitus, hypertension, GERD. PCP is Dr. Trevino He was recently discharged from hospital for osteomyelitis of the left foot. Presents because of for some dyspnea over several days but 5 days, associated with some cough associated with agreed and white phlegm. and discomfort in the chest chest pain only with cough. Also patient has diarrhea for the last 5 days and since his been discharged from. Patient still complaining of from left leg and foot swelling and infection. He denies any urinary symptoms, no neurological symptoms. He denies smoking alcohol or illicit drugs. Patient is afebrile and vitals are stable. Blood pressure is elevated off the high side He has unremarkable CBC except for mild anemia at 11.1. INR 1.1. D-dimer elevated 1.85. BNP under enzymes are unremarkable Troponin elevated 0.09 and 0.08. ProBNP is significantly elevated 69040. Viruses and detected including influenza, RSV, coronavirus Chest x-ray: Correlate for volume overload CTA of the chest revealed no pulmonary embolism but his large bilateral pleural effusion and mild bibasilar atelectasis EKG showing sinus tachycardia [address]-T changes 12/06/2022 Patient is seen and evaluated in room at bedside; denies any specific complaints; patient is status post cardiac catheterization Vital signs are stable Cardiac catheterization revealing intermediate to severe disease involving the posterior of OM1 and intermediate disease involving proximal LAD, elevated left- sided filling pressures; cardiology on board and recommending to continue with medical management -- Patient remains on IV antibiotics per ID recommendations 12/07/2022 Patient is seen and evaluated resting comfortably in bedside recliner; no complaint of chest pain or shortness of breath patient with recent admission to the hospital with left diabetic foot infection with evidence of tenosynovitis and MSSA bacteremia patient seem to have shown clinical response to the cefazolin now presented to hospital with increasing sh ortness of breath and did have evidence of bilateral effusion and concern for pericardial fusion and pericarditis for which cardiology is following the patient -blood cultures done this admission on 12/03/2022, so far negative. Patient to continue on cefazolin 2 g every 8 hours and will monitor clinical course closely 12/08/2022 Patient is seen and evaluated in room at bedside; vital signs are reviewed and are stable Patient has been worked up by cardiology for CHF exacerbation and possible and STEMI; echocardiogram had revealed EF of 40%; patient underwent cardiac catheterization which revealed intermediate disease with cardiology recommending medical management -- Patient continues to be diuresed with IV Lasix; cardiology determining to continue for another 24 hours with close monitoring of renal function -- Patient remains on cefazolin 2 g every 8 hours for MSSA bacteremia; ID on board; final recommendations on antibiotic therapies and Objective - Vital Signs Vital signs: Vital Signs Temp 97.6 F 12/08/22 08:00 Pulse 86 12/08/22 08:00 Resp 16 12/08/22 08:00 BP 114/70 12/08/22 08:00 Pulse Ox 96 12/08/22 08:07 FiO2 Intake & Output 12/07/22 12/08/22 12/08/22 18:59 06:59 18:59 Intake Total 540 360 Output Total 2125 1550 Balance -1585 -1550 360 Weight 130.4 kg Intake: Oral 540 360 Output: Urine 2125 1550 Other: Voiding Method Toilet Urinal - Exam GENERAL: The patient is alert and oriented x3, not in any acute distress. Well developed, well nourished. HEENT: Pupils are round and equally reacting to light. EOMI. No scleral icterus. No conjunctival pallor. Normocephalic, atraumatic. No pharyngeal erythema. No thyromegaly. CARDIOVASCULAR: S1 and S2 present. No murmurs, rubs, or gallops. PULMONARY: Chest is clear to auscultation, no wheezing or crackles. ABDOMEN: Soft, nontender, nondistended, normoactive bowel sounds. No palpable organomegaly. MUSCULOSKELETAL: No joint swelling or deformity. EXTREMITIES: No cyanosis, clubbing, or pedal edema. Left foot bandaged seen NEUROLOGICAL: Gross neurological examination did not reveal any focal deficits. SKIN: No rashes. - Labs CBC & Chem 7: 12/06/22 08:12 12/06/22 08:12 Labs: Abnormal Lab Results - Last 24 Hours (Table) 12/07/22 12/07/22 12/08/22 Range/Units 16:14 19:57 06:20 POC Glucose (mg/dL) 159 H 200 H 157 H (70-110) mg/dL 12/08/22 Range/Units 11:25 POC Glucose (mg/dL) 185 H (70-110) mg/dL Assessment and Plan Assessment: Acute CHF unknown ejection fraction Bilateral pleural effusion most likely secondary to above Mildly elevated troponin secondary to above Hypertension, uncontrolled, present on admission steomyelitis and pain left foot, recent from this facility on antibiotic Diabetes Mellitus History of GERD/Reflux obesity with BMI of 34.7 Monitor vital signs Monitor CBC Monitor CMP Continue telemetry monitoring Continue heparin drip Continue IV cefazolin Strict I's and O's, daily weights, continue IV Lasix 4012 echocardiogram revealed EF of 40% with moderate pulmonary hypertension, pericarditis. ID following Cardiology following,Cardiac workup with cardiac catheterization will need to be addressed once patient's osteomyelitis is resolved Labs and medication were reviewed.. Continue same treatment. Continue with symptomatic treatment. Monitor labs and vitals. DVT and GI prophylaxis. Further recommendations as per clinical course of the patient
[2022-12-08] MEDS: metFORMIN 500 MG TAB PO SCH ×2 (18:00→20:22)
[2022-12-08 20:16] LABS: Glucose,Whole Blood 210 mg/dL (70-110)
[2022-12-08] MEDS: ATORVASTATIN 20 MG TAB PO SCH (20:21)
[2022-12-09] MEDS: SODIUM CHLORIDE 0.9% 1,000 ML in EMPTY BAG 1 BAG IV SCH ×3 (00:44→18:36)
[2022-12-09 06:10] LABS: Glucose,Whole Blood 158 mg/dL (70-110)
[2022-12-09] MEDS: INSULIN ASPART (NovoLOG) 100 UNIT/ML VIAL SQ SCH ×4 (06:13→21:34)
[2022-12-09] MEDS: carvediloL 12.5 MG TAB PO SCH ×2 (06:13→15:26)
[2022-12-09 08:25] LABS: Basophils % (A) 0 %; Eosinophils # (A) 0.1 k/uL (0-0.7); Eosinophils % (A) 2 %; HGB 9.6 gm/dL (13.0-17.5); Lymphocytes # (A) 1.4 k/uL (1.0-4.8); Lymphocytes % (A) 41 %; MCH 30.9 pg (25.0-35.0); MCV 93.6 fL (80.0-100.0); Monocytes # (A) 0.3 k/uL (0-1.0); Monocytes % (A) 9 %; Neutrophils # (A) 1.5 k/uL (1.3-7.7); Neutrophils % (A) 44 %; Platelet Count 166 k/uL (150-450); RDW 14.6 % (11.5-15.5); WBC 3.5 k/uL (3.8-10.6)
[2022-12-09 08:52] LABS: African American GFR (CKD) >90 (>60 ml/min/1.73 sqM); Anion Gap 7 mmol/L; Blood Urea Nitrogen 13 mg/dL (9-20); Calcium 7.5 mg/dL (8.4-10.2); Carbon Dioxide 28 mmol/L (22-30); Chloride 103 mmol/L (98-107); Glucose 165 mg/dL (74-99); Non-African American GFR(CKD) 82 (>60 ml/min/1.73 sqM); Potassium 3.9 mmol/L (3.5-5.1); Sodium 138 mmol/L (137-145)
[2022-12-09] MEDS: LOSARTAN 50 MG TAB PO SCH (09:21)
[2022-12-09] MEDS: FUROSEMIDE 10 MG/ML 10 ML VIAL IV SCH ×2 (09:21→21:31)
[2022-12-09] MEDS: amLODIPine 2.5 MG TAB PO SCH (09:22)
[2022-12-09] MEDS: FAMOTIDINE 20 MG TAB PO SCH ×2 (09:22→21:33)
[2022-12-09] MEDS: ASPIRIN 81 MG PO SCH (09:22)
[2022-12-09] MEDS: CLOPIDOGREL 75 MG TAB PO SCH (09:22)
[2022-12-09] MEDS: metFORMIN 500 MG TAB PO SCH ×3 (09:23→21:33)
[2022-12-09] MEDS: HEPARIN SODIUM,PORCINE/PF 5,000 UNIT/0.5 ML SYRINGE SQ SCH ×2 (09:23→15:26)
[2022-12-09 11:35] LABS: Glucose,Whole Blood 171 mg/dL (70-110)
--- NOTE | 2022-12-09 13:35 | P.PN ---
Subjective Progress Note Date: 12/09/22 57 y/omale with past medical history of diabetes mellitus, hypertension, GERD. PCP is Dr. Trevino He was recently discharged from hospital for osteomyelitis of the left foot. Presents because of for some dyspnea over several days but 5 days, associated with some cough associated with agreed and white phlegm. and discomfort in the chest chest pain only with cough. Also patient has diarrhea for the last 5 days and since his been discharged from. Patient still complaining of from left leg and foot swelling and infection. He denies any urinary symptoms, no neurological symptoms. He denies smoking alcohol or illicit drugs. Patient is afebrile and vitals are stable. Blood pressure is elevated off the high side He has unremarkable CBC except for mild anemia at 11.1. INR 1.1. D-dimer elevated 1.85. BNP under enzymes are unremarkable Troponin elevated 0.09 and 0.08. ProBNP is significantly elevated 70807. Viruses and detected including influenza, RSV, coronavirus Chest x-ray: Correlate for volume overload CTA of the chest revealed no pulmonary embolism but his large bilateral pleural effusion and mild bibasilar atelectasis EKG showing sinus tachycardia [address]-T changes 12/02/2022 Patient lying in bed with multiple in distress is still complaining of from dyspnea but is not walking much. He denies any chest pain. No other new complaint Patient blood pressure is better controlled after adding beta og which he seems to correlate by cardiology team Patient remains on IV Lasix 40 mg twice daily heparin drip was added by cardiology team and continued on aspirin 81 mg which is a home dose. After this was discontinued. ESR and CRP are elevated 58 and 2.6 respectively. Patient has an aunt osteomyelitis of the left foot on antibiotic we are going to consult infectious disease team 12/03/2022 Patient still complaining of from dyspnea, extending in bed most of the time. He is not in respiratory distress, he does not use accessory muscles Remains on IV Lasix for his bilateral pleural effusion and CHF exacerbation with severe mitral regurgitation His Coreg dose was increased while heparin drip was stopped and currently is on subcutaneous heparin. Also sent home dose aspirin of 81 mg. Cardiology team are considered cardiac cath. His left foot cellulitis is stable and remains on cefazolin. 12/04. Patient seen and examined. Cardiology planning to do cardiac cath, patient had questions about cardiac cath, all questions WERE ANSWERED 12/06/2022 Patient is seen and evaluated in room at bedside; denies any specific complaints ; patient is status post cardiac catheterization Vital signs are stable Cardiac catheterization revealing intermediate to severe disease involving the posterior of OM1 and intermediate disease involving proximal LAD, elevated left- sided filling pressures; cardiology on board and recommending to continue with medical management -- Patient remains on IV antibiotics per ID recommendations 12/07/2022 Patient is seen and evaluated resting comfortably in bedside recliner; no complaint of chest pain or shortness of breath patient with recent admission to the hospital with left diabetic foot infection with evidence of tenosynovitis and MSSA bacteremia patient seem to have shown clinical response to the cefazolin now presented to hospital with increasing shortness of breath and did have evidence of bilateral effusion and concern for pericardial fusion and pericarditis for which cardiology is following the patient -blood cultures done this admission on 12/03/2022, so far negative. Patient to continue on cefazolin 2 g every 8 hours and will monitor clinical course closely 12/08/2022 Patient is seen and evaluated in room at bedside; vital signs are reviewed and are stable Patient has been worked up by cardiology for CHF exacerbation and possible and STEMI; echocardiogram had revealed EF of 40%; patient underwent cardiac catheterization which revealed intermediate disease with cardiology recommending medical management -- Patient continues to be diuresed with IV Lasix; cardiology determining to continue for another 24 hours with close monitoring of renal function -- Patient remains on cefazolin 2 g every 8 hours for MSSA bacteremia; ID on board; final recommendations on antibiotic therapies 12/09. Patient seen and examined. No acute issues overnight. Still has swelling of lower extremities. Gets short of breath on exertion REVIEW OF SYSTEMS: CONSTITUTIONAL: No fever, no malaise,. CARDIOVASCULAR: No chest pain, no palpitations, no syncope. PULMONARY: As mentioned above GASTROINTESTINAL: No diarrhea, no nausea, no vomiting, no abdominal pain. NEUROLOGICAL: No headaches, no weakness, PHYSICAL EXAMINATION: GENERAL: The patient is alert and oriented x3, not in any acute distress. Well developed, well nourished. HEENT: Pupils are round and equally reacting to light. EOMI. No scleral icterus. No conjunctival pallor. Normocephalic, atraumatic. No pharyngeal erythema. No thyromegaly. CARDIOVASCULAR: S1 and S2 present. No murmurs, rubs, or gallops. PULMONARY: Diminished breath sounds at the bases bilaterally ABDOMEN: Soft, nontender, nondistended, normoactive bowel sounds. No palpable organomegaly. MUSCULOSKELETAL: No joint swelling or deformity. EXTREMITIES: No cyanosis, clubbing, or pedal edema. Left foot bandaged seen NEUROLOGICAL: Gross neurological examination did not reveal any focal deficits. SKIN: No rashes. Assessment and plan Acute CHF unknown ejection fraction Bilateral pleural effusion most likely secondary to above Mildly elevated troponin secondary to above Hypertension, uncontrolled, present on admission steomyelitis and pain left foot, recent from this facility on antibiotic Diabetes Mellitus History of GERD/Reflux obesity with BMI of 34.7 Monitor vital signs Monitor CBC Monitor CMP Continue telemetry monitoring Continue IV cefazolin Strict I's and O's, daily weights, continue IV Lasix echocardiogram revealed EF of 40% with moderate pulmonary hypertension, pericarditis. ID following Cardiology following, cardiac catheterization done showed elevated left-sided filling pressure with intermediate to severe disease involving OM1 and intermediate disease involving the proximal LAD, both lesions are bystander lesions and not culprit lesions and cardiology recommended to pursue medical treatment Labs and medication were reviewed.. Continue same treatment. Continue with symptomatic treatment. Monitor labs and vitals. DVT and GI prophylaxis. Further recommendations as per clinical course of the patient Objective - Vital Signs Vital signs: Vital Signs Temp 98.3 F 12/09/22 08:00 Pulse 79 12/09/22 08:00 Resp 18 12/09/22 08:00 BP 156/83 12/09/22 08:00 Pulse Ox 95 12/09/22 08:00 FiO2 Intake & Output 12/08/22 12/09/22 12/09/22 18:59 06:59 18:59 Intake Total 540 1120 180 Output Total 1625 1701 Balance -1085 -581 180 Weight 128.9 kg Intake: Oral 540 1120 180 Output: Urine 1625 1700 Stool 1 Other: Voiding Method Toilet Urinal - Labs CBC & Chem 7: 12/09/22 07:51 12/09/22 07:51 Labs: Abnormal Lab Results - Last 24 Hours (Table) 12/08/22 12/08/22 12/08/22 Range/Units 11:25 16:38 20:15 WBC (3.8-10.6) k/uL RBC (4.30-5.90) m/uL Hgb (13.0-17.5) gm/dL Hct (39.0-53.0) % Glucose (74-99) mg/dL POC Glucose (mg/dL) 185 H 189 H 210 H (70-110) mg/dL Calcium (8.4-10.2) mg/dL 12/09/22 12/09/22 12/09/22 Range/Units 06:08 07:51 07:51 WBC 3.5 L (3.8-10.6) k/uL RBC 3.10 L (4.30-5.90) m/uL Hgb 9.6 L (13.0-17.5) gm/dL Hct 29.0 L (39.0-53.0) % Glucose 165 H (74-99) mg/dL POC Glucose (mg/dL) 158 H (70-110) mg/dL Calcium 7.5 L (8.4-10.2) mg/dL Microbiology - Last 24 Hours (Table) 12/03/22 06:08 Blood Culture - Final Blood
--- NOTE | 2022-12-09 13:44 | P.PN ---
Subjective HISTORY OF PRESENT ILLNESS: The patient is a 57-year-old gentleman with a past medical history significant for diabetes and hypertension and dyslipidemia who was admitted to the hospital initially with left foot infection. Troponin was elevated. He was diagnosed with heart failure as well. And he underwent an echo which revealed impaired LV function was EF around 40%. He was experiencing symptoms of shortness of breath but no pain in the chest. December 052022 He was seen this morning. He continues to have shortness of breath mainly with laying flat in bed consistent with orthopnea and he remains in failure. The examination is consistent with bilateral rhonchi/diminished breathing sounds bilaterally and also mild bilateral lower extremity edema. The pressure remains elevated didn't point to increase the dose of carvedilol and continue aspirin and statin and Lasix IV. He'll need to undergo a heart catheterization in the next 24-48 hours 12/06/2022 The patient was seen and evaluated this morning. He remains hypoxic require some oxygen but his shortness of breath with laying flat/orthopnea has improved significantly and he is laying flat in bed this morning. He still have lower extremity edema more prominent on the left than the right. No pain in the chest. I am going to pursue with a heart catheterization later on today unless the kidney function is worse. We'll follow-up with the kidney function from the morning. 12/07/2022 The patient was seen and evaluated this morning. He is not feeling well and he continues to be short of breath with laying flat in bed. Clearly distal in volume overload. He still have diminished breathing sounds bilaterally and severe bilateral lower extremity edema. We did perform a heart catheterization yesterday and that showed elevated left-sided filling pressure with intermediate to severe disease involving OM1 and intermediate disease involving the proximal LAD, I felt both lesions are bystander lesions and not culprit lesions and for that reason I decided to pursue medical treatment only giving that his kidney function is not functioning normally. Beside that the pressure today remains elevated and going to add small dose of amlodipine in addition to carvedilol and losartan. He is on maximize medical treatment into of carvedilol and losartan. Beside that I am concerned about secondary hypertension and for that reason I am going to obtain a renal duplex study to rule out renal artery stenosis. In addition to that point to either Plavix to the current medical regimen to be on dual antiplatelet therapy since the troponin was elevated and also ongoing to increase the dose of Lasix in the light of elevated left ventricular end-mychal stolic pressure of almost 35 mmHg. December 082022 The patient was seen and evaluated this morning. His shortness of breath has improved significantly but he continues to have bilateral lower extremity edema. Currently he is not on oxygen and his oxygen saturation within normal limits on room air. He is on Lasix at 80 mg IV twice a day. The pressure overall appears to be somewhat better on the current medical regimen. He has been diuresing well. We are waiting for the results of the blood work from the morning including the BUN and creatinine and electrolytes. He continues to receive the antibiotic regarding the foot infection. From the cardiovascular standpoint of view, I would continue the current medical regimen including the current dose of Lasix IV for additional 24 hours and follow-up with a blood work from the morning unless his BUN and creatinine came in to be quite abnormal. He still in failure. Meanwhile continue dual antiplatelet therapy along with a statin along with beta og and ARB 12/09/2022 Patient examined this morning at the bedside. Patient's spouse is present. Patient denies chest pain or pressure. He continues to report shortness of breath. He states he feels as though his shortness of breath is not improved from yesterday. He remains on IV Lasix 80 mg every 12 hours. Kidney function remained stable. BUN 13. Creatinine 1.03. Blood pressure is slightly elevated with a systolic ranging between [id number]. PHYSICAL EXAM: VITAL SIGNS: Reviewed. GENERAL: Well-developed in no acute distress. NECK: Supple. No JVD or thyromegaly LUNGS: Respirations even and unlabored. Lungs essentially clear to auscultation bilaterally, diminished. HEART: Regular rate and rhythm. S1 and S2 heard. EXTREMITIES: Normal range of motion. No clubbing or cyanosis. Peripheral pulses intact. 1+ bilateral lower extremity edema ASSESSMENT: Left foot infection Acute heart failure with reduced ejection fraction, 40% Nonischemic cardiomyopathy Coronary artery disease with intermediate disease of OM1 and LAD Hypertension Acute kidney injury PLAN: Continue IV Lasix Daily weights, accurate I&O, and monitoring of kidney function Discontinue Norvasc secondary to cardiomyopathy Add hydralazine 25 mg twice a day Add Aldactone 25 mg daily Add Farxiga 10mg daily Further recommendations pending patient course Nurse practitioner note has been reviewed by physician. Signing provider agrees with the documented findings, assessment, and plan of care. Objective - Vital Signs Vital signs: Vital Signs Temp 98.3 F 12/09/22 12:00 Pulse 72 12/09/22 12:07 Resp 18 12/09/22 12:07 BP 159/90 12/09/22 12:00 Pulse Ox 98 12/09/22 12:00 FiO2 Intake & Output 12/08/22 12/09/22 12/09/22 18:59 06:59 18:59 Intake Total 540 1120 180 Output Total 1625 1701 Balance -1085 -581 180 Weight 128.9 kg Intake: Oral 540 1120 180 Output: Urine 1625 1700 Stool 1 Other: Voiding Method Toilet Urinal - Labs CBC & Chem 7: 12/09/22 07:51 12/09/22 07:51 Labs: Abnormal Lab Results - Last 24 Hours (Table) 12/08/22 12/08/22 12/09/22 Range/Units 16:38 20:15 06:08 WBC (3.8-10.6) k/uL RBC (4.30-5.90) m/uL Hgb (13.0-17.5) gm/dL Hct (39.0-53.0) % Glucose (74-99) mg/dL POC Glucose (mg/dL) 189 H 210 H 158 H (70-110) mg/dL Calcium (8.4-10.2) mg/dL 12/09/22 12/09/22 12/09/22 Range/Units 07:51 07:51 11:34 WBC 3.5 L (3.8-10.6) k/uL RBC 3.10 L (4.30-5.90) m/uL Hgb 9.6 L (13.0-17.5) gm/dL Hct 29.0 L (39.0-53.0) % Glucose 165 H (74-99) mg/dL POC Glucose (mg/dL) 171 H (70-110) mg/dL Calcium 7.5 L (8.4-10.2) mg/dL Microbiology - Last 24 Hours (Table) 12/03/22 06:08 Blood Culture - Final Blood
[2022-12-09] MEDS: METOCLOPRAMIDE 5 MG/ML 2 ML VIAL IVP PRN (15:25)
[2022-12-09] MEDS: SPIRONOLACTONE 25 MG TAB PO SCH (15:26)
[2022-12-09] MEDS: hydrALAZINE HCL 25 MG TAB PO SCH ×2 (15:26→21:19)
[2022-12-09] MEDS: DAPAGLIFLOZIN PROPANEDIOL 10 MG TABLET PO SCH (15:32)
[2022-12-09 16:12] LABS: Glucose,Whole Blood 155 mg/dL (70-110)
[2022-12-09] MEDS: ONDANSETRON 4 MG/2 ML VIAL IVP PRN (16:35)
[2022-12-09 20:11] LABS: Glucose,Whole Blood 177 mg/dL (70-110)
[2022-12-09] MEDS: ATORVASTATIN 20 MG TAB PO SCH (21:34)
--- NOTE | 2022-12-09 21:55 | P.PN ---
Subjective Progress Note Date: 12/08/22 Principal diagnosis: Left foot tenosynovitis and MSSA bacteremia this is a telehealth visit Patient is a 57-year-old male with a past medical history significant for diabetes mellitus recent admission to the hospital for left foot tenosynovitis and did have a MSSA bacteremia repeat blood cultures were negative MRI did not show any abscess and podiatry recommended against any surgical intervention patient did get a PICC line and was advised 6-day course of IV cefazolin and oral Flagyl patient is presenting back to [facility] ER for evaluation of shortness of breath, patient echocardiogram which shows EF of 45% and concern for pericarditis being monitored by cardiology.patient the patient is s/p cardiac cath completed 12/06/2022 noticed to have two-vessel disease recommending medical treatment on today's evaluation that is 12/08/2022 the patient remains to be afebrile , pt is breathing comfortably not requiring supplemental oxygen , no chest pain no nausea vomiting abdominal pain or pain to the left foot area Objective - Vital Signs Vital signs: Vital Signs Temp 98.3 F 12/08/22 20:00 Pulse 80 12/08/22 20:00 Resp 16 12/08/22 20:00 BP 146/88 12/08/22 20:00 Pulse Ox 96 12/08/22 20:00 FiO2 Intake & Output 12/08/22 12/08/22 12/09/22 06:59 18:59 06:59 Intake Total 540 40 Output Total 1550 1625 Balance -1550 -1085 40 Weight 130.4 kg Intake: Oral 540 40 Output: Urine 1550 1625 Other: Voiding Method Toilet Toilet Urinal Urinal - Exam GENERAL DESCRIPTION: A middle-age male lying in bed in no distress RESPIRATORY SYSTEM: Unlabored breathing , Clear to auscultation anteriorly Left foot is currently dressed Exam completed with the help of DATA COLLECTION INTERVIEWER - Labs CBC & Chem 7: 12/09/22 07:51 12/09/22 07:51 Labs: Abnormal Lab Results - Last 24 Hours (Table) 12/08/22 12/08/22 12/08/22 Range/Units 06:20 11:25 16:38 POC Glucose (mg/dL) 157 H 185 H 189 H (70-110) mg/dL 12/08/22 Range/Units 20:15 POC Glucose (mg/dL) 210 H (70-110) mg/dL Microbiology - Last 24 Hours (Table) 12/03/22 06:08 Blood Culture - Final Blood Assessment and Plan (1) Tenosynovitis of left foot Current Visit: Yes Status: Acute Code(s): M65.9 - SYNOVITIS AND TENOSYNOVITIS, UNSPECIFIED SNOMED Code(s): 0654439023249666 (2) MSSA bacteremia Current Visit: No Status: Acute Code(s): R78.81 - BACTEREMIA; B95.61 - METHICILLIN SUSCEP STAPH INFCT CAUSING DIS CLASSD ELSWHR SNOMED Code(s): 109902070 Plan: this was a telehealth visit 1patient with recent admission to the hospital with left diabetic foot infection with evidence of tenosynovitis and MSSA bacteremia patient seem to h ave shown clinical response to the cefazolin now presented to hospital with increasing shortness of breath and did have evidence of bilateral effusion and concern for pericardial fusion and pericarditis for which cardiology is following the patient 2-blood cultures done this admission on 12/03/2022, has been negative. 4Patient to continue on cefazolin 2 g every 8 hours Time with Patient: Less than 30
--- NOTE | 2022-12-09 21:56 | P.PN ---
Subjective Progress Note Date: 12/09/22 Principal diagnosis: Left foot tenosynovitis and MSSA bacteremia this is a telehealth visit Patient is a 57-year-old male with a past medical history significant for diabetes mellitus recent admission to the hospital for left foot tenosynovitis and did have a MSSA bacteremia repeat blood cultures were negative MRI did not show any abscess and podiatry recommended against any surgical intervention patient did get a PICC line and was advised 6-day course of IV cefazolin and oral Flagyl patient is presenting back to [facility] ER for evaluation of shortness of breath, patient echocardiogram which shows EF of 45% and concern for pericarditis being monitored by cardiology.patient the patient is s/p cardiac cath completed 12/06/2022 noticed to have two-vessel disease recommending medical treatment on today's evaluation that is 12/09/2022 the patient continues to be afebrile , pt is breathing comfortably on room air , the patient denies chest pain no nause a vomiting abdominal pain or pain to the left foot area Objective - Vital Signs Vital signs: Vital Signs Temp 98.3 F 12/09/22 12:00 Pulse 72 12/09/22 12:07 Resp 18 12/09/22 12:07 BP 159/90 12/09/22 12:00 Pulse Ox 98 12/09/22 12:00 FiO2 Intake & Output 12/08/22 12/09/22 12/09/22 18:59 06:59 18:59 Intake Total 540 1120 360 Output Total 1625 1701 Balance -1085 -581 360 Weight 128.9 kg Intake: Oral 540 1120 360 Output: Urine 1625 1700 Stool 1 Other: Voiding Method Toilet Urinal - Exam GENERAL DESCRIPTION: A middle-age male lying in bed in no distress RESPIRATORY SYSTEM: Unlabored breathing , Clear to auscultation anteriorly Abdomen soft no tenderness Left foot is currently dressed - Labs CBC & Chem 7: 12/09/22 07:51 12/09/22 07:51 Labs: Abnormal Lab Results - Last 24 Hours (Table) 12/08/22 12/08/22 12/09/22 Range/Units 16:38 20:15 06:08 WBC (3.8-10.6) k/uL RBC (4.30-5.90) m/uL Hgb (13.0-17.5) gm/dL Hct (39.0-53.0) % Glucose (74-99) mg/dL POC Glucose (mg/dL) 189 H 210 H 158 H (70-110) mg/dL Calcium (8.4-10.2) mg/dL 12/09/22 12/09/22 12/09/22 Range/Units 07:51 07:51 11:34 WBC 3.5 L (3.8-10.6) k/uL RBC 3.10 L (4.30-5.90) m/uL Hgb 9.6 L (13.0-17.5) gm/dL Hct 29.0 L (39.0-53.0) % Glucose 165 H (74-99) mg/dL POC Glucose (mg/dL) 171 H (70-110) mg/dL Calcium 7.5 L (8.4-10.2) mg/dL Microbiology - Last 24 Hours (Table) 12/03/22 06:08 Blood Culture - Final Blood Assessment and Plan (1) Tenosynovitis of left foot Current Visit: Yes Status: Acute Code(s): M65.9 - SYNOVITIS AND TENOSYNOVITIS, UNSPECIFIED SNOMED Code(s): 4994610503720091 (2) MSSA bacteremia Current Visit: No Status: Acute Code(s): R78.81 - BACTEREMIA; B95.61 - METHICILLIN SUSCEP STAPH INFCT CAUSING DIS CLASSD ELSWHR SNOMED Code(s): 035265365 Plan: this was a telehealth visit 1patient with recent admission to the hospital with left diabetic foot infection with evidence of tenosynovitis and MSSA bacteremia patient seem to have shown clinical response to the cefazolin now presented to hospital with increasing shortness of breath and did have evidence of bilateral effusion and concern for pericardial fusion and pericarditis for which cardiology is following the patient 2-blood cultures done this admission on 12/03/2022, has been negative. 4Patient to continue on cefazolin 2 g every 8 hours to finish his 6 week course of therapy Time with Patient: Less than 30
[2022-12-10] MEDS: HEPARIN SODIUM,PORCINE/PF 5,000 UNIT/0.5 ML SYRINGE SQ SCH ×4 (00:44→23:51)
[2022-12-10] MEDS: SODIUM CHLORIDE 0.9% 1,000 ML in EMPTY BAG 1 BAG IV SCH ×3 (05:16→16:47)
[2022-12-10 06:07] LABS: Glucose,Whole Blood 126 mg/dL (70-110)
[2022-12-10] MEDS: INSULIN ASPART (NovoLOG) 100 UNIT/ML VIAL SQ SCH ×4 (06:24→20:03)
[2022-12-10] MEDS: carvediloL 12.5 MG TAB PO SCH ×2 (06:28→16:54)
[2022-12-10] MEDS: FAMOTIDINE 20 MG TAB PO SCH ×2 (07:58→20:08)
[2022-12-10] MEDS: metFORMIN 500 MG TAB PO SCH ×3 (07:58→20:03)
[2022-12-10] MEDS: CLOPIDOGREL 75 MG TAB PO SCH (07:58)
[2022-12-10] MEDS: ASPIRIN 81 MG PO SCH (07:58)
[2022-12-10] MEDS: hydrALAZINE HCL 25 MG TAB PO SCH ×2 (07:58→20:03)
[2022-12-10] MEDS: LOSARTAN 50 MG TAB PO SCH (07:58)
[2022-12-10] MEDS: DAPAGLIFLOZIN PROPANEDIOL 10 MG TABLET PO SCH (07:59)
[2022-12-10] MEDS: FUROSEMIDE 10 MG/ML 10 ML VIAL IV SCH (07:59)
[2022-12-10] MEDS: SPIRONOLACTONE 25 MG TAB PO SCH (07:59)
[2022-12-10 10:04] LABS: Basophils % (A) 0 %; Eosinophils # (A) 0.1 k/uL (0-0.7); Eosinophils % (A) 2 %; HCT 32.3 % (39.0-53.0); HGB 10.5 gm/dL (13.0-17.5); Lymphocytes # (A) 1.9 k/uL (1.0-4.8); Lymphocytes % (A) 47 %; MCH 30.5 pg (25.0-35.0); MCHC 32.5 g/dL (31.0-37.0); Mean Platelet Volume 7.8; Monocytes # (A) 0.2 k/uL (0-1.0); Monocytes % (A) 6 %; Neutrophils # (A) 1.8 k/uL (1.3-7.7); Neutrophils % (A) 43 %; Platelet Count 195 k/uL (150-450); RBC 3.43 m/uL (4.30-5.90); RDW 14.8 % (11.5-15.5); WBC 4.1 k/uL (3.8-10.6)
[2022-12-10 10:40] LABS: ALT 20 U/L (4-49); AST 29 U/L (17-59); African American GFR (CKD) 80 (>60 ml/min/1.73 sqM); Albumin 3.5 g/dL (3.5-5.0); Alkaline Phosphatase 78 U/L (38-126); Anion Gap 9 mmol/L; Blood Urea Nitrogen 12 mg/dL (9-20); Calcium 7.7 mg/dL (8.4-10.2); Carbon Dioxide 31 mmol/L (22-30); Chloride 98 mmol/L (98-107); Glucose 170 mg/dL (74-99); Non-African American GFR(CKD) 69 (>60 ml/min/1.73 sqM); Potassium 4.1 mmol/L (3.5-5.1); Sodium 138 mmol/L (137-145); Total Bilirubin 0.6 mg/dL (0.2-1.3); Total Protein 6.4 g/dL (6.3-8.2)
[2022-12-10 11:39] LABS: Glucose,Whole Blood 131 mg/dL (70-110)
--- NOTE | 2022-12-10 13:15 | P.PN ---
Subjective Progress Note Date: 12/10/22 HISTORY OF PRESENT ILLNESS: The patient is a 57-year-old gentleman with a past medical history significant for diabetes and hypertension and dyslipidemia who was admitted to the hospital initially with left foot infection. Troponin was elevated. He was diagnosed with heart failure as well. And he underwent an echo which revealed impaired LV function was EF around 40%. He was experiencing symptoms of shortness of breath but no pain in the chest. December 052022 He was seen this morning. He continues to have shortness of breath mainly with laying flat in bed consistent with orthopnea and he remains in failure. The examination is consistent with bilateral rhonchi/diminished breathing sounds bilaterally and also mild bilateral lower extremity edema. The pressure remains elevated didn't point to increase the dose of carvedilol and continue aspirin and statin and Lasix IV. He'll need to undergo a heart catheterization in the next 24-48 hours 12/06/2022 The patient was seen and evaluated this morning. He remains hypoxic require some oxygen but his shortness of breath with laying flat/orthopnea has improved significantly and he is laying flat in bed this morning. He still have lower extremity edema more prominent on the left than the right. No pain in the c hest. I am going to pursue with a heart catheterization later on today unless the kidney function is worse. We'll follow-up with the kidney function from the morning. 12/07/2022 The patient was seen and evaluated this morning. He is not feeling well and he continues to be short of breath with laying flat in bed. Clearly distal in volume overload. He still have diminished breathing sounds bilaterally and severe bilateral lower extremity edema. We did perform a heart catheterization yesterday and that showed elevated left-sided filling pressure with intermediate to severe disease involving OM1 and intermediate disease involving the proximal LAD, I felt both lesions are bystander lesions and not culprit lesions and for that reason I decided to pursue medical treatment only giving that his kidney function is not functioning normally. Beside that the pressure today remains elevated and going to add small dose of amlodipine in addition to carvedilol and losartan. He is on maximize medical treatment into of carvedilol and losartan. Beside that I am concerned about secondary hypertension and for that reason I am going to obtain a renal duplex study to rule out renal artery stenosis. In addition to that point to either Plavix to the current medical regimen to be on dual antiplatelet therapy since the troponin was elevated and also ongoing to increase the dose of Lasix in the light of elevated left ventricular end- diastolic pressure of almost 35 mmHg. December 082022 The patient was seen and evaluated this morning. His shortness of breath has improved significantly but he continues to have bilateral lower extremity edema. Currently he is not on oxygen and his oxygen saturation within normal limits on room air. He is on Lasix at 80 mg IV twice a day. The pressure overall appears to be somewhat better on the current medical regimen. He has been diuresing well. We are waiting for the results of the blood work from the morning including the BUN and creatinine and electrolytes. He continues to receive the antibiotic regarding the foot infection. From the cardiovascular standpoint of view, I would continue the current medical regimen including the current dose of Lasix IV for additional 24 hours and follow-up with a blood work from the morning unless his BUN and creatinine came in to be quite abnormal. He still in failure. Meanwhile continue dual antiplatelet therapy along with a statin along with beta og and ARB 12/09/2022 Patient examined this morning at the bedside. Patient's spouse is present. Patient denies chest pain or pressure. He continues to report shortness of breath. He states he feels as though his shortness of breath is not improved from yesterday. He remains on IV Lasix 80 mg every 12 hours. Kidney function remained stable. BUN 13. Creatinine 1.03. Blood pressure is slightly elevated with a systolic ranging between [id number]. 12/10/2022 Patient examined this morning at the bedside. Patient denies chest pain or pressure. He reports significant improvement in his shortness of breath. He states he has been able to be related to the bathroom. Blood pressure is under control today in comparison to yesterday. PHYSICAL EXAM: VITAL SIGNS: Reviewed. GENERAL: Well-developed in no acute distress. NECK: Supple. No JVD or thyromegaly LUNGS: Respirations even and unlabored. Lungs essentially clear to auscultation bilaterally, diminished. HEART: Regular rate and rhythm. S1 and S2 heard. EXTREMITIES: Normal range of motion. No clubbing or cyanosis. Peripheral pulses intact. 1+ bilateral lower extremity edema ASSESSMENT: Left foot infection Acute heart failure with reduced ejection fraction, 40% Nonischemic cardiomyopathy Coronary artery disease with intermediate disease of OM1 and LAD Hypertension Acute kidney injury PLAN: Discontinue IV Lasix. Begin oral Lasix 40 mg twice a day Continue additional cardiac medications Case management and verified co-pay coverage for [employer] which is $15 a month Anticipate discharge home tomorrow if patient remains stable Further recommendations pending patient course Nurse practitioner note has been reviewed by physician. Signing provider agrees with the documented findings, assessment, and plan of care. Objective - Vital Signs Vital signs: Vital Signs Temp 98.2 F 12/10/22 07:53 Pulse 76 12/10/22 11:41 Resp 17 12/10/22 11:41 BP 134/71 12/10/22 11:41 Pulse Ox 92 L 12/10/22 11:41 FiO2 Intake & Output 12/09/22 12/10/22 12/10/22 18:59 06:59 18:59 Intake Total 360 180 Output Total 2677 Balance 360 -2677 180 Weight 126.2 kg Intake: Oral 360 180 Output: Urine 2675 Stool 2 Other: Voiding Method Toilet Toilet Urinal Urinal # Voids 3 - Labs CBC & Chem 7: 12/10/22 09:17 12/10/22 09:17 Labs: Abnormal Lab Results - Last 24 Hours (Table) 12/09/22 12/09/22 12/10/22 Range/Units 16:11 20:10 06:07 RBC (4.30-5.90) m/uL Hgb (13.0-17.5) gm/dL Hct (39.0-53.0) % Carbon Dioxide (22-30) mmol/L Glucose (74-99) mg/dL POC Glucose (mg/dL) 155 H 177 H 126 H (70-110) mg/dL Calcium (8.4-10.2) mg/dL 12/10/22 12/10/22 12/10/22 Range/Units 09:17 09:17 11:38 RBC 3.43 L (4.30-5.90) m/uL Hgb 10.5 L (13.0-17.5) gm/dL Hct 32.3 L (39.0-53.0) % Carbon Dioxide 31 H (22-30) mmol/L Glucose 170 H (74-99) mg/dL POC Glucose (mg/dL) 131 H (70-110) mg/dL Calcium 7.7 L (8.4-10.2) mg/dL
--- NOTE | 2022-12-10 13:59 | P.PN ---
Subjective Progress Note Date: 12/10/22 57 y/omale with past medical history of diabetes mellitus, hypertension, GERD. PCP is Dr. Trevino He was recently discharged from hospital for osteomyelitis of the left foot. Presents because of for some dyspnea over several days but 5 days, associated with some cough associated with agreed and white phlegm. and discomfort in the chest chest pain only with cough. Also patient has diarrhea for the last 5 days and since his been discharged from. Patient still complaining of from left leg and foot swelling and infection. He denies any urinary symptoms, no neurological symptoms. He denies smoking alcohol or illicit drugs. Patient is afebrile and vitals are stable. Blood pressure is elevated off the high side He has unremarkable CBC except for mild anemia at 11.1. INR 1.1. D-dimer elevated 1.85. BNP under enzymes are unremarkable Troponin elevated 0.09 and 0.08. ProBNP is significantly elevated 25207. Viruses and detected including influenza, RSV, coronavirus Chest x-ray: Correlate for volume overload CTA of the chest revealed no pulmonary embolism but his large bilateral pleural effusion and mild bibasilar atelectasis EKG showing sinus tachycardia [address]-T changes 12/02/2022 Patient lying in bed with multiple in distress is still complaining of from dyspnea but is not walking much. He denies any chest pain. No other new complaint Patient blood pressure is better controlled after adding beta og which he seems to correlate by cardiology team Patient remains on IV Lasix 40 mg twice daily heparin drip was added by cardiology team and continued on aspirin 81 mg which is a home dose. After this was discontinued. ESR and CRP are elevated 58 and 2.6 respectively. Patient has an aunt osteomyelitis of the left foot on antibiotic we are going to consult infectious disease team 12/03/2022 Patient still complaining of from dyspnea, extending in bed most of the time. He is not in respiratory distress, he does not use accessory muscles Remains on IV Lasix for his bilateral pleural effusion and CHF exacerbation with severe mitral regurgitation His Coreg dose was increased while heparin drip was stopped and currently is on subcutaneous heparin. Also sent home dose aspirin of 81 mg. Cardiology team are considered cardiac cath. His left foot cellulitis is stable and remains on cefazolin. 12/04. Patient seen and examined. Cardiology planning to do cardiac cath, patient had questions about cardiac cath, all questions WERE ANSWERED 12/06/2022 Patient is seen and evaluated in room at bedside; denies any specific complaints ; patient is status post cardiac catheterization Vital signs are stable Cardiac catheterization revealing intermediate to severe disease involving the posterior of OM1 and intermediate disease involving proximal LAD, elevated left- sided filling pressures; cardiology on board and recommending to continue with medical management -- Patient remains on IV antibiotics per ID recommendations 12/07/2022 Patient is seen and evaluated resting comfortably in bedside recliner; no complaint of chest pain or shortness of breath patient with recent admission to the hospital with left diabetic foot infection with evidence of tenosynovitis and MSSA bacteremia patient seem to have shown clinical response to the cefazolin now presented to hospital with increasing shortness of breath and did have evidence of bilateral effusion and concern for pericardial fusion and pericarditis for which cardiology is following the patient -blood cultures done this admission on 12/03/2022, so far negative. Patient to continue on cefazolin 2 g every 8 hours and will monitor clinical course closely 12/08/2022 Patient is seen and evaluated in room at bedside; vital signs are reviewed and are stable Patient has been worked up by cardiology for CHF exacerbation and possible and STEMI; echocardiogram had revealed EF of 40%; patient underwent cardiac catheterization which revealed intermediate disease with cardiology recommending medical management -- Patient continues to be diuresed with IV Lasix; cardiology determining to continue for another 24 hours with close monitoring of renal function -- Patient remains on cefazolin 2 g every 8 hours for MSSA bacteremia; ID on board; final recommendations on antibiotic therapies 12/09. Patient seen and examined. No acute issues overnight. Still has swelling of lower extremities. Gets short of breath on exertion 12/10. Patient seen and examined. States he feels better, able to lay flat. Swelling of legs is also improved REVIEW OF SYSTEMS: CONSTITUTIONAL: No fever, no malaise,. CARDIOVASCULAR: No chest pain, no palpitations, no syncope. PULMONARY: As mentioned above GASTROINTESTINAL: No diarrhea, no nausea, no vomiting, no abdominal pain. NEUROLOGICAL: No headaches, no weakness, PHYSICAL EXAMINATION: GENERAL: The patient is alert and oriented x3, not in any acute distress. Well developed, well nourished. HEENT: Pupils are round and equally reacting to light. EOMI. No scleral icterus. No conjunctival pallor. Normocephalic, atraumatic. No pharyngeal erythema. No thyromegaly. CARDIOVASCULAR: S1 and S2 present. No murmurs, rubs, or gallops. PULMONARY: Diminished breath sounds at the bases bilaterally ABDOMEN: Soft, nontender, nondistended, normoactive bowel sounds. No palpable organomegaly. MUSCULOSKELETAL: No joint swelling or deformity. EXTREMITIES: No cyanosis, clubbing, or pedal edema. Left foot bandaged seen NEUROLOGICAL: Gross neurological examination did not reveal any focal deficits. SKIN: No rashes. Assessment and plan Acute CHF unknown ejection fraction Bilateral pleural effusion most likely secondary to above Mildly elevated troponin secondary to above Hypertension, uncontrolled, present on admission steomyelitis and pain left foot, recent from this facility on antibiotic Diabetes Mellitus History of GERD/Reflux obesity with BMI of 34.7 Monitor vital signs Monitor CBC Monitor CMP Continue telemetry monitoring Continue IV cefazolin to complete 6 weeks of treatment Strict I's and O's, daily weights, IV Lasix switched to oral Lasix 40 twice a day echocardiogram revealed EF of 40% with moderate pulmonary hypertension, pericarditis. ID following Cardiology following, cardiac catheterization done showed elevated left-sided filling pressure with intermediate to severe disease involving OM1 and intermediate disease involving the proximal LAD, both lesions are bystander lesions and not culprit lesions and cardiology recommended to pursue medical treatment Cardiology added hydralazine, Aldactone, farxiga Labs and medication were reviewed.. Continue same treatment. Continue with symptomatic treatment. Monitor labs and vitals. DVT and GI prophylaxis. Further recommendations as per clinical course of the patient Objective - Vital Signs Vital signs: Vital Signs Temp 98.2 F 12/10/22 07:53 Pulse 78 12/10/22 08:13 Resp 16 12/10/22 07:53 BP 119/75 12/10/22 07:53 Pulse Ox 93 L 12/10/22 07:53 FiO2 Intake & Output 12/09/22 12/10/22 12/10/22 18:59 06:59 18:59 Intake Total 360 180 Output Total 2677 Balance 360 -2677 180 Weight 126.2 kg Intake: Oral 360 180 Output: Urine 2675 Stool 2 Other: Voiding Method Toilet Toilet Urinal Urinal # Voids 3 - Labs CBC & Chem 7: 12/10/22 09:17 12/10/22 09:17 Labs: Abnormal Lab Results - Last 24 Hours (Table) 07/10/23 07/10/23 07/10/23 Range/Units 11:34 16:11 20:10 RBC (4.30-5.90) m/uL Hgb (13.0-17.5) gm/dL Hct (39.0-53.0) % Carbon Dioxide (22-30) mmol/L Glucose (74-99) mg/dL POC Glucose (mg/dL) 171 H 155 H 177 H (70-110) mg/dL Calcium (8.4-10.2) mg/dL 12/10/22 12/10/22 12/10/22 Range/Units 06:07 09:17 09:17 RBC 3.43 L (4.30-5.90) m/uL Hgb 10.5 L (13.0-17.5) gm/dL Hct 32.3 L (39.0-53.0) % Carbon Dioxide 31 H (22-30) mmol/L Glucose 170 H (74-99) mg/dL POC Glucose (mg/dL) 126 H (70-110) mg/dL Calcium 7.7 L (8.4-10.2) mg/dL
[2022-12-10] MEDS: FUROSEMIDE 40 MG TAB PO SCH (15:45)
[2022-12-10 16:45] LABS: Glucose,Whole Blood 144 mg/dL (70-110)
[2022-12-10 19:59] LABS: Glucose,Whole Blood 189 mg/dL (70-110)
[2022-12-10] MEDS: ATORVASTATIN 20 MG TAB PO SCH (20:03)
[2022-12-11 06:03] LABS: Glucose,Whole Blood 121 mg/dL (70-110)
[2022-12-11] MEDS: INSULIN ASPART (NovoLOG) 100 UNIT/ML VIAL SQ SCH ×2 (06:28→12:12)
[2022-12-11] MEDS: SODIUM CHLORIDE 0.9% 1,000 ML in EMPTY BAG 1 BAG IV SCH ×2 (06:28→09:21)
[2022-12-11] MEDS: carvediloL 12.5 MG TAB PO SCH (06:34)
[2022-12-11] MEDS: CLOPIDOGREL 75 MG TAB PO SCH (09:19)
[2022-12-11] MEDS: ASPIRIN 81 MG PO SCH (09:19)
[2022-12-11] MEDS: SPIRONOLACTONE 25 MG TAB PO SCH (09:20)
[2022-12-11] MEDS: LOSARTAN 50 MG TAB PO SCH (09:20)
[2022-12-11] MEDS: DAPAGLIFLOZIN PROPANEDIOL 10 MG TABLET PO SCH (09:20)
[2022-12-11] MEDS: FUROSEMIDE 40 MG TAB PO SCH (09:20)
[2022-12-11] MEDS: metFORMIN 500 MG TAB PO SCH (09:20)
[2022-12-11] MEDS: HEPARIN SODIUM,PORCINE/PF 5,000 UNIT/0.5 ML SYRINGE SQ SCH (09:20)
[2022-12-11] MEDS: hydrALAZINE HCL 25 MG TAB PO SCH (09:20)
[2022-12-11] MEDS: FAMOTIDINE 20 MG TAB PO SCH (09:20)
[2022-12-11 11:07] VITALS: BMI 31.7
[2022-12-11 11:30] LABS: Glucose,Whole Blood 150 mg/dL (70-110)
[2022-12-11 11:36] VITALS: RESP 18; TEMP 98.3
--- NOTE | 2022-12-11 12:06 | P.DS ---
Providers Date of admission: 12/01/22 15:13 Expected date of discharge: 12/11/22 Attending physician: Louis Mckeon MD Consults: 12/01/22 15:12 Consult Physician Urgent Consulting Provider: Mike Cordoba Consult Reason/Comments: Bilateral pleural effusions, eleated troponin Do you want consulting provider notified?: Yes 12/02/22 13:47 Consult Physician Urgent Consulting Provider: Clarence Tavares Consult Reason/Comments: outpatient IV abx therapy, follows you outpatient Do you want consulting provider notified?: Yes Primary care physician: Jocelynn Castle [facility] Course: Discharge diagnoses; Acute CHF unknown ejection fraction Bilateral pleural effusion most likely secondary to above Mildly elevated troponin secondary to above Hypertension, uncontrolled, present on admission steomyelitis and pain left foot, recent from this facility on antibiotic Diabetes Mellitus History of GERD/Reflux obesity with BMI of 34.7 Continue IV cefazolin to complete 6 weeks of treatment oral Lasix 40 twice a day echocardiogram revealed EF of 40% with moderate pulmonary hypertension, pericarditis. Cardiology following, cardiac catheterization done showed elevated left-sided filling pressure with intermediate to severe disease involving OM1 and intermediate disease involving the proximal LAD, both lesions are bystander lesions and not culprit lesions and cardiology recommended to pursue medical treatment Cardiology added hydralazine, Aldactone, [facility] Hospital course; 57 y/omale with past medical history of diabetes mellitus, hypertension, GERD. PCP is Dr. Trevino He was recently discharged from hospital for osteomyelitis of the left foot. Presents because of for some dyspnea over several days but 5 days, associated with some cough associated with agreed and white phlegm. and discomfort in the chest chest pain only with cough. Also patient has diarrhea for the last 5 days and since his been discharged from. Patient still complaining of from left leg and foot swelling and infection. He denies any urinary symptoms, no neurological symptoms. He denies smoking alcohol or illicit drugs. Patient is afebrile and vitals are stable. Blood pressure is elevated off the high side He has unremarkable CBC except for mild anemia at 11.1. INR 1.1. D-dimer elevated 1.85. BNP under enzymes are unremarkable Troponin elevated 0.09 and 0.08. ProBNP is significantly elevated 47944. Viruses and detected including influenza, RSV, coronavirus Chest x-ray: Correlate for volume overload CTA of the chest revealed no pulmonary embolism but his large bilateral pleural effusion and mild bibasilar atelectasis EKG showing sinus tachycardia [address]-T changes 12/02/2022 Patient lying in bed with multiple in distress is still complaining of from dyspnea but is not walking much. He denies any chest pain. No other new complaint Patient blood pressure is better controlled after adding beta og which he seems to correlate by cardiology team Patient remains on IV Lasix 40 mg twice daily heparin drip was added by cardiology team and continued on aspirin 81 mg which is a home dose. After this was discontinued. ESR and CRP are elevated 58 and 2.6 respectively. Patient has an aunt osteomyelitis of the left foot on antibiotic we are going to consult infectious disease team 12/03/2022 Patient still complaining of from dyspnea, extending in bed most of the time. He is not in respiratory distress, he does not use accessory muscles Remains on IV Lasix for his bilateral pleural effusion and CHF exacerbation with severe mitral regurgitation His Coreg dose was increased while heparin drip was stopped and currently is on subcutaneous heparin. Also sent home dose aspirin of 81 mg. Cardiology team are considered cardiac cath. His left foot cellulitis is stable and remains on cefazolin. 12/04. Patient seen and examined. Cardiology planning to do cardiac cath, patient had questions about cardiac cath, all questions WERE ANSWERED 12/06/2022 Patient is seen and evaluated in room at bedside; denies any specific complaints; patient is status post cardiac catheterization Vital signs are stable Cardiac catheterization revealing intermediate to severe disease involving the posterior of OM1 and intermediate disease involving proximal LAD, elevated left- sided filling pressures; cardiology on board and recommending to continue with medical management -- Patient remains on IV antibiotics per ID recommendations 12/07/2022 Patient is seen and evaluated resting comfortably in bedside recliner; no complaint of chest pain or shortness of breath patient with recent admission to the hospital with left diabetic foot infection with evidence of tenosynovitis and MSSA bacteremia patient seem to have shown clinical response to the cefazolin now presented to hospital with increasing s hortness of breath and did have evidence of bilateral effusion and concern for pericardial fusion and pericarditis for which cardiology is following the patient -blood cultures done this admission on 12/03/2022, so far negative. Patient to continue on cefazolin 2 g every 8 hours and will monitor clinical course closely 12/08/2022 Patient is seen and evaluated in room at bedside; vital signs are reviewed and are stable Patient has been worked up by cardiology for CHF exacerbation and possible and STEMI; echocardiogram had revealed EF of 40%; patient underwent cardiac catheterization which revealed intermediate disease with cardiology recommending medical management -- Patient continues to be diuresed with IV Lasix; cardiology determining to continue for another 24 hours with close monitoring of renal function -- Patient remains on cefazolin 2 g every 8 hours for MSSA bacteremia; ID on board; final recommendations on antibiotic therapies 12/09. Patient seen and examined. No acute issues overnight. Still has swelling of lower extremities. Gets short of breath on exertion 12/10. Patient seen and examined. States he feels better, able to lay flat. Swelling of legs is also improved 12/11. Patient seen and examined. Cardiology recommended dual antiplatelet therapy at discharge. Being discharged on oral Lasix 40 twice a day PHYSICAL EXAMINATION: GENERAL: The patient is alert and oriented x3, not in any acute distress. Well developed, well nourished. HEENT: Pupils are round and equally reacting to light. EOMI. No scleral icterus. No conjunctival pallor. Normocephalic, atraumatic. No pharyngeal erythema. No thyromegaly. CARDIOVASCULAR: S1 and S2 present. No murmurs, rubs, or gallops. PULMONARY: Chest is clear to auscultation, no wheezing or crackles. ABDOMEN: Soft, nontender, nondistended, normoactive bowel sounds. No palpable organomegaly. MUSCULOSKELETAL: No joint swelling or deformity. EXTREMITIES: No cyanosis, clubbing, or pedal edema. NEUROLOGICAL: Gross neurological examination did not reveal any focal deficits. SKIN: No rashes. Patient Condition at Discharge: Good Plan - Discharge Summary New Discharge Prescriptions: New hydrALAZINE HCL [Apresoline] 25 mg PO BID #90 tab Furosemide [Lasix] 40 mg PO BID@0900,1600 #60 tab Atorvastatin [Lipitor] 20 mg PO HS #30 tab Clopidogrel [Plavix] 75 mg PO DAILY #30 tab Dapagliflozin Propanediol [Farxiga] 10 mg PO DAILY #30 tab Spironolactone [Aldactone] 25 mg PO DAILY #30 tab Aspirin 81 mg PO DAILY #30 tab carvediloL [Coreg*] 25 mg PO BID-W/MEALS #60 tab Continue metFORMIN HCL [Glucophage] 1,000 mg PO BID Olmesartan [Benicar] 40 mg PO DAILY metFORMIN HCL [Glucophage] 500 mg PO DAILY@1700 Ondansetron [Zofran] 4 mg PO Q8HR ceFAZolin [Kefzol] 2 gm IVP Q8HR #126 each Acetaminophen Tab [Tylenol] 500 mg PO Q6H PRN PRN Reason: Fever And/ Or Pain Discontinued Pioglitazone [Actos] 30 mg PO DAILY@1700 Discharge Medication List Olmesartan [Benicar] 40 mg PO DAILY 02/17/15 [History] metFORMIN HCL [Glucophage] 1,000 mg PO BID 02/17/15 [History] ceFAZolin [Kefzol] 2 gm IVP Q8HR #126 each 11/17/22 [Rx] Acetaminophen Tab [Tylenol] 500 mg PO Q6H PRN 12/01/22 [History] Ondansetron [Zofran] 4 mg PO Q8HR 12/01/22 [History] metFORMIN HCL [Glucophage] 500 mg PO DAILY@1700 12/01/22 [History] Dapagliflozin Propanediol [Farxiga] 10 mg PO DAILY #30 tab 12/10/22 [Rx] Aspirin 81 mg PO DAILY #30 tab 12/11/22 [Rx] Atorvastatin [Lipitor] 20 mg PO HS #30 tab 12/11/22 [Rx] Clopidogrel [Plavix] 75 mg PO DAILY #30 tab 12/11/22 [Rx] Furosemide [Lasix] 40 mg PO BID@0900,1600 #60 tab 12/11/22 [Rx] Spironolactone [Aldactone] 25 mg PO DAILY #30 tab 12/11/22 [Rx] carvediloL [Coreg*] 25 mg PO BID-W/MEALS #60 tab 12/11/22 [Rx] hydrALAZINE HCL [Apresoline] 25 mg PO BID #90 tab 12/11/22 [Rx] Follow up Appointment(s)/Referral(s): Gil Kohli MD [STAFF PHYSICIAN] - 1 Week (new pcp if you want ) Corrine Cabezas MD [Primary Care Provider] - 1-2 days [facility], [NON-STAFF] - [facility],Infusion [NON-STAFF] - Clarence Tavares MD [STAFF PHYSICIAN] - 1 Week Mike Cordoba MD [STAFF PHYSICIAN] - 1 Week Discharge Disposition: HOME SELF-CARE
[2022-12-11 12:45] VITALS: BP 142/65; PULSE 86
--- NOTE | 2022-12-11 13:54 | P.PN ---
Subjective HISTORY OF PRESENT ILLNESS: The patient is a 57-year-old gentleman with a past medical history significant for diabetes and hypertension and dyslipidemia who was admitted to the hospital initially with left foot infection. Troponin was elevated. He was diagnosed with heart failure as well. And he underwent an echo which revealed impaired LV function was EF around 40%. He was experiencing symptoms of shortness of breath but no pain in the chest. December 052022 He was seen this morning. He continues to have shortness of breath mainly with laying flat in bed consistent with orthopnea and he remains in failure. The examination is consistent with bilateral rhonchi/diminished breathing sounds bilaterally and also mild bilateral lower extremity edema. The pressure remains elevated didn't point to increase the dose of carvedilol and continue aspirin and statin and Lasix IV. He'll need to undergo a heart catheterization in the next 24-48 hours 12/06/2022 The patient was seen and evaluated this morning. He remains hypoxic require some oxygen but his shortness of breath with laying flat/orthopnea has improved significantly and he is laying flat in bed this morning. He still have lower extremity edema more prominent on the left than the right. No pain in the chest. I am going to pursue with a heart catheterization later on today unless the kidney function is worse. We'll follow-up with the kidney function from the morning. 12/07/2022 The patient was seen and evaluated this morning. He is not feeling well and he continues to be short of breath with laying flat in bed. Clearly distal in volume overload. He still have diminished breathing sounds bilaterally and severe bilateral lower extremity edema. We did perform a heart catheterization yesterday and that showed elevated left-sided filling pressure with intermediate to severe disease involving OM1 and intermediate disease involving the proximal LAD, I felt both lesions are bystander lesions and not culprit lesions and for that reason I decided to pursue medical treatment only giving that his kidney function is not functioning normally. Beside that the pressure today remains elevated and going to add small dose of amlodipine in addition to carvedilol and losartan. He is on maximize medical treatment into of carvedilol and losartan. Beside that I am concerned about secondary hypertension and for that reason I am going to obtain a renal duplex study to rule out renal artery stenosis. In addition to that point to either Plavix to the current medical regimen to be on dual antiplatelet therapy since the troponin was elevated and also ongoing to increase the dose of Lasix in the light of elevated left ventricular end-mychal stolic pressure of almost 35 mmHg. December 082022 The patient was seen and evaluated this morning. His shortness of breath has improved significantly but he continues to have bilateral lower extremity edema. Currently he is not on oxygen and his oxygen saturation within normal limits on room air. He is on Lasix at 80 mg IV twice a day. The pressure overall appears to be somewhat better on the current medical regimen. He has been diuresing well. We are waiting for the results of the blood work from the morning including the BUN and creatinine and electrolytes. He continues to receive the antibiotic regarding the foot infection. From the cardiovascular standpoint of view, I would continue the current medical regimen including the current dose of Lasix IV for additional 24 hours and follow-up with a blood work from the morning unless his BUN and creatinine came in to be quite abnormal. He still in failure. Meanwhile continue dual antiplatelet therapy along with a statin along with beta og and ARB 12/09/2022 Patient examined this morning at the bedside. Patient's spouse is present. Patient denies chest pain or pressure. He continues to report shortness of breath. He states he feels as though his shortness of breath is not improved from yesterday. He remains on IV Lasix 80 mg every 12 hours. Kidney function remained stable. BUN 13. Creatinine 1.03. Blood pressure is slightly elevated with a systolic ranging between [id number]. 12/10/2022 Patient examined this morning at the bedside. Patient denies chest pain or pressure. He reports significant improvement in his shortness of breath. He states he has been able to be related to the bathroom. Blood pressure is under control today in comparison to yesterday. 12/11/2022 Patient examined this afternoon at the bedside. Patient denies chest pain or pressure. He denies shortness of breath. He has not been bleeding without difficulty. Vital signs are stable. He is hoping to be discharged home today. PHYSICAL EXAM: VITAL SIGNS: Reviewed. GENERAL: Well-developed in no acute distress. NECK: Supple. No JVD or thyromegaly LUNGS: Respirations even and unlabored. Lungs essentially clear to auscultation bilaterally, diminished. HEART: Regular rate and rhythm. S1 and S2 heard. EXTREMITIES: Normal range of motion. No clubbing or cyanosis. Peripheral pulse s intact. 1+ bilateral lower extremity edema ASSESSMENT: Left foot infection Acute heart failure with reduced ejection fraction, 40% Nonischemic cardiomyopathy Coronary artery disease with intermediate disease of OM1 and LAD Hypertension Acute kidney injury PLAN: Continue current cardiac medications Patient is stable for discharge home today from a cardiac standpoint Patient is to follow in the office post discharge Nurse practitioner note has been reviewed by physician. Signing provider agrees with the documented findings, assessment, and plan of care. Objective - Vital Signs Vital signs: Vital Signs Temp 98.3 F 12/11/22 09:15 Pulse 86 12/11/22 12:15 Resp 18 12/11/22 12:15 BP 142/65 12/11/22 12:15 Pulse Ox 95 12/11/22 12:15 FiO2 Intake & Output 12/10/22 12/11/22 12/11/22 18:59 06:59 18:59 Intake Total 540 Output Total 0 1277 1 Balance -1510 -1277 -1 Weight 124.6 kg 124.6 kg Intake: Oral 540 Output: Urine 2049 1275 Stool 2 1 Other: Voiding Method Toilet Toilet Urinal Urinal # Voids 3 - Labs CBC & Chem 7: 12/10/22 09:17 12/10/22 09:17 Labs: Abnormal Lab Results - Last 24 Hours (Table) 12/10/22 12/10/22 12/11/22 Range/Units 16:44 19:57 06:01 POC Glucose (mg/dL) 144 H 189 H 121 H (70-110) mg/dL 12/11/22 Range/Units 11:28 POC Glucose (mg/dL) 150 H (70-110) mg/dL
== END 2022-12-11 14:05 | disposition home or self-care (01) | DRG 286 ==
LOC: EC 09:12 → 3SCARD 15:13
PROVIDERS: ADMIT Internal Medicine; ATTEND Internal Medicine
PROC: B2111ZZ Fluoroscopy of Multiple Coronary Arteries using Low Osmolar Contrast (ICD-10-PCS; principal; 2022-12-06 10:30)
PROC: 4A023N7 Measurement of Cardiac Sampling and Pressure, Left Heart, Percutaneous Approach (ICD-10-PCS; principal; 2022-12-06 10:30)
DX: I11.0 Hypertensive heart disease with heart failure (principal); I50.21 Acute systolic (congestive) heart failure; L03.116 Cellulitis of left lower limb; M86.8X7 Other osteomyelitis, ankle and foot; N17.9 Acute kidney failure, unspecified; I31.9 Disease of pericardium, unspecified; Z68.34 Body mass index [BMI] 34.0-34.9, adult; R77.8 Other specified abnormalities of plasma proteins; E11.69 Type 2 diabetes mellitus with other specified complication; E66.9 Obesity, unspecified; K21.9 Gastro-esophageal reflux disease without esophagitis; Z20.822 Contact with and (suspected) exposure to COVID-19; E11.40 Type 2 diabetes mellitus with diabetic neuropathy, unspecified; I42.8 Other cardiomyopathies; R79.1 Abnormal coagulation profile; I27.20 Pulmonary hypertension, unspecified; I25.10 Atherosclerotic heart disease of native coronary artery without angina pectoris; I34.0 Nonrheumatic mitral (valve) insufficiency; E78.5 Hyperlipidemia, unspecified; R09.02 Hypoxemia; D64.9 Anemia, unspecified; M65.9 Synovitis and tenosynovitis, unspecified; B95.61 Methicillin susceptible Staphylococcus aureus infection as the cause of diseases classified elsewhere; Z79.899 Other long term (current) drug therapy; Z79.84 Long term (current) use of oral hypoglycemic drugs; Z79.82 Long term (current) use of aspirin; Z88.0 Allergy status to penicillin; Z88.1 Allergy status to other antibiotic agents; Z86.14 Personal history of Methicillin resistant Staphylococcus aureus infection; Z89.422 Acquired absence of other left toe(s); Z89.421 Acquired absence of other right toe(s); Z87.891 Personal history of nicotine dependence
CPT/HCPCS: 36415; 71046; 71275; 80048; 80053; 80061; 83036; 83605; 83735; 83880; 84145; 84484; 85025; 85027; 85379; 85610; 85652; 85730; 86140; 87040; 87636; 93005; 93306; 93458; 93970; 94640; 94760; 96374; 96375; 99285

== ENCOUNTER → 2022-12-18 | Outpatient (CLI) | payer BC ==
[2022-12-18 20:19] LABS: BUN/Creat Ratio 13.54 Ratio (12.00-20.00); Blood Urea Nitrogen 17.6 mg/dL (9.0-27.0); Calcium 9.4 mg/dL (8.7-10.3); Carbon Dioxide 25.2 mmol/L (21.6-31.8); Chloride 102 mmol/L (96-109); Glucose 155 mg/dL (70-110); Potassium 6.3 mmol/L (3.5-5.5); Sodium 139 mmol/L (135-145)
[2022-12-18 20:37] LABS: HCT 38.5 % (39.6-50.0); HGB 12.5 d/dL (12.0-15.0); MCH 30.1 pg (27.0-32.0); MCHC 32.5 d/dL (32.0-37.0); MCV 92.8 FL (80.0-97.0); Mean Platelet Volume 11.1 FL (9.5-12.2); NRBC Per 100 WBC 0 X 10*3/uL (0.00-0.01); Platelet Count 217 X 10*3/uL (140-440); RBC 4.15 X 10*6/uL (4.40-5.60); RDW 13.7 % (11.5-14.5); WBC 6.77 X 10*3/uL (4.50-10.00)
== END | disposition home or self-care (01) ==
LOC: LABWHC1 15:27
PROVIDERS: ATTEND Internal Medicine Interventional Cardiology
DX: N18.9 Chronic kidney disease, unspecified (principal)
CPT/HCPCS: 36415; 80048; 85027

== ENCOUNTER 2023-02-05 14:25 | Inpatient (IN) | payer BC ==
--- NOTE | 2023-02-05 15:20 | ED ---
General Adult HPI - General Source: patient, family, RN notes reviewed Mode of arrival: ambulatory Limitations: no limitations <Karel Case - Last Filed: 02/05/23 15:18> <Eliazar Quezada - Last Filed: 02/05/23 18:40> - General Stated complaint: R foot Infection, Sent by Dr. Cooper for Admit Time Seen by Provider: 02/05/23 15:18 - History of Present Illness Initial comments: 58-year-old male presents emergency Department with chief complaint of right foot infection. Patient was sent over from Dr. Gonsalez's office for admission. Patient states he is a known diabetic he's been dealing with infection for several months. He was admitted most of November for this infection. He states that he was on a PICC line up until 3 weeks ago and was started on oral antibiotics and symptoms have worsened. Patient's was sent over for admission for IV antibiotics and further treatment and management. (Karel Case) This is a 58-year-old male who was sent in by Dr. Gonsalez the infectious disease doctor. Patient has a chronic wound to the bottom of his foot and today the callus full often it was a gaping hole and the patient needs to come in for IV antibiotics according to Dr. Gonsalez. Patient states he has no pain has had no fever he was unaware that it was such a deep hole in his foot. Dr. Sneed the patient IV antibiotics as well as a CT of the foot. (Eliazar Quezada) - Related Data Home Medications Medication Instructions Recorded Confirmed Olmesartan [Benicar] 40 mg PO DAILY 02/17/15 12/01/22 metFORMIN HCL [Glucophage] 1,000 mg PO BID 02/17/15 12/01/22 Acetaminophen Tab [Tylenol] 500 mg PO Q6H PRN 12/01/22 12/01/22 Ondansetron [Zofran] 4 mg PO Q8HR 12/01/22 12/01/22 metFORMIN HCL [Glucophage] 500 mg PO DAILY@1700 12/01/22 12/01/22 Previous Rx's Medication Instructions Recorded ceFAZolin [Kefzol] 2 gm IVP Q8HR #126 each 11/17/22 Dapagliflozin Propanediol [Farxiga] 10 mg PO DAILY #30 tab 12/10/22 Aspirin 81 mg PO DAILY #30 tab 12/11/22 Atorvastatin [Lipitor] 20 mg PO HS #30 tab 12/11/22 Clopidogrel [Plavix] 75 mg PO DAILY #30 tab 12/11/22 Furosemide [Lasix] 40 mg PO BID@0900,1600 #60 tab 12/11/22 Spironolactone [Aldactone] 25 mg PO DAILY #30 tab 12/11/22 carvediloL [Coreg*] 25 mg PO BID-W/MEALS #60 tab 12/11/22 hydrALAZINE HCL [Apresoline] 25 mg PO BID #90 tab 12/11/22 Allergies Allergy/AdvReac Type Severity Reaction Status Date / Time levofloxacin [From Levaquin] Allergy Swelling, Verified 02/05/23 15:19 RASH Penicillins Allergy Unknown Verified 02/05/23 15:19 Childhood Review of Systems ROS Other: All systems not noted in ROS Statement are negative. <Karel Case - Last Filed: 02/05/23 15:18> ROS Other: All systems not noted in ROS Statement are negative. <Eliazar Quezada - Last Filed: 02/05/23 18:40> ROS Statement: Those systems with pertinent positive or pertinent negative responses have been documented in the HPI. Past Medical History Past Medical History: Diabetes Mellitus, GERD/Reflux, Hypertension Additional Past Medical History / Comment(s): osteomyelitis and pain left foot, stepped on kristen nail October 2018,hx neuropathy History of Any Multi-Drug Resistant Organisms: MRSA Date of last positivie culture/infection: march 2022 MDRO Source:: toe Past Surgical History: Tonsillectomy Additional Past Surgical History / Comment(s): endoscopy, middle toe rt foot removed ,lft 2nd toe tip removed Past Anesthesia/Blood Transfusion Reactions: No Reported Reaction Past Psychological History: No Psychological Hx Reported Smoking Status: Former smoker Past Alcohol Use History: None Reported Past Drug Use History: None Reported - Past Family History Mother Family Medical History: Cancer Additional Family Medical History / Comment(s): breast cancer Father Family Medical History: Cancer Additional Family Medical History / Comment(s): lung cancer Sister(s) Family Medical History: Cancer Additional Family Medical History / Comment(s): lung cancer <Karel Case - Last Filed: 02/05/23 15:18> General Exam <Karel Case Theron - Last Filed: 02/05/23 15:18> <Eliazar Quezada - Last Filed: 02/05/23 18:40> - General Exam Comments Initial Comments: Visual Physical Exam Vital signs reviewed General: Well-appearing, nontoxic, no acute distress. Head: Normocephalic, atraumatic Eyes: PERRLA, EOMI ENT: Airway patent Chest: Nonlabored breathing Skin: No visual rash, normal skin tone Neuro: Alert and oriented 3 Musculoskeletal: No gross abnormalities (Karel Case) GENERAL: Patient is well-developed and well-nourished. Patient is nontoxic and well- hydrated and is in no acute distress. ENT: Neck is soft and supple. No significant lymphadenopathy is noted. Oropharynx is clear. Moist mucous membranes. Neck has full range of motion without eliciting any pain. There is no thyroid enlargement and no masses were felt. EYES: The sclera were anicteric and conjunctiva were pink and moist. Extraocular movements were intact and pupils were equal round and reactive to light. Eyelids were unremarkable. PULMONARY: Unlabored respirations. Good breath sounds bilaterally. No audible rales rhonchi or wheezing was noted. CARDIOVASCULAR: There is a regular rate and rhythm without any murmurs gallops or rubs. ABDOMEN: Soft and nontender with normal bowel sounds. SKIN: Skin is clear with no lesions or rashes and otherwise unremarkable. NEUROLOGIC: Patient is alert and oriented x3. Cranial nerves II through XII are grossly intact. Motor and sensory are also intact. Normal speech, volume and content. Symmetrical smile. MUSCULOSKELETAL: Normal extremities with adequate strength and full range of motion. No lower extremity swelling or edema. No calf tenderness. The bottom of the patient's right foot at the MTP joints of the third digit has a large opening which appears to be an infection. LYMPHATICS: No significant lymphadenopathy is noted PSYCHIATRIC: Normal psychiatric evaluation. (Eliazar Quezada) Course Vital Signs 02/05/23 02/05/23 15:16 18:17 Temperature 97.7 F Pulse Rate 81 72 Respiratory 20 18 Rate Blood Pressure 104/65 108/67 O2 Sat by Pulse 100 99 Oximetry Medical Decision Making <Karel Case - Last Filed: 02/05/23 15:18> - Lab Data Result diagrams: 02/05/23 15:18 02/05/23 15:18 <Eliazar Quezada - Last Filed: 02/05/23 18:40> - Medical Decision Making I performed the quick note portion of this chart signed Karel Case PA-C (Karel Case) Was pt. sent in by a medical professional or institution (, [facility], SERVICE INSPECTOR, urgent care, hospital, or snf...) When possible be specific @ -Patient was sent in by Dr. Tavares Did you speak to anyone other than the patient for history (EMS, parent, family, police, friend...)? What history was obtained from this source @ -Spoke to Sayed about his history and current condition Did you review nursing and triage notes (agree or disagree)? Why? @ -I reviewed and agree with nursing and triage notes Were old charts reviewed (outside hosp., previous admission, EMS record, old EKG, old radiological studies, urgent care reports/EKG's, snf records)? Report findings @ -I reviewed prior laboratory prior radiological studies Differential Diagnosis (chest pain, altered mental status, abdominal pain women, abdominal pain men, vaginal bleeding, weakness, fever, dyspnea, syncope, headache, dizziness, GI bleed, back pain, seizure, CVA, palpatations, mental health, musculoskeletal)? @ -Cellulitis, deep wound infection, osteomyelitis, this is not all because of less EKG interpreted by me (3pts min.). @ -As above X-rays interpreted by me (1pt min.). @ -None done CT interpreted by me (1pt min.). @ -EKG of the foot shows a probable osteomyelitis U/S interpreted by me (1pt. min.). @ -None done What testing was considered but not performed or refused? (CT, X-rays, U/S, labs)? Why? @ -None What meds were considered but not given or refused? Why? @ -None Did you discuss the management of the patient with other professionals (daina patel i.e. , [facility], SERVICE INSPECTOR, lab, RT, psych nurse, renal social worker, technical communicator, teacher, bank officer, sheet manager)? Give summary @ -Spoke with the [facility] hospitalist who agreed to admit the patient Was smoking cessation discussed for >3mins.? @ -No Was critical care preformed (if so, how long)? @ -No Were there social determinants of health that impacted care today? How? (Homelessness, low income, unemployed, alcoholism, drug addiction, transportation, low edu. Level, literacy, decrease access to med. care, detention, rehab)? @ -No Was there de-escalation of care discussed even if they declined (Discuss DNR or withdrawal of care, Hospice)? DNR status @ -No What co-morbidities impacted this encounter? (DM, HTN, Smoking, COPD, CAD, Cancer, CVA, ARF, Chemo, Hep., AIDS, mental health diagnosis, sleep apnea, morbid obesity)? @ -None Was patient admitted / discharged? Hospital course, mention meds given and route, prescriptions, significant lab abnormalities, going to OR and other pertinent info. @ -Patient was started on vancomycin and cefepime. CAT scan was done and showed a possible osteoarthritis. I admitted the patient to [facility] hospitalist. I consulted infectious disease Undiagnosed new problem with uncertain prognosis? @ -No Drug Therapy requiring intensive monitoring for toxicity (Heparin, Nitro, Insulin, Cardizem)? @ -No Were any procedures done? @ -No Diagnosis/symptom? @ -Osteomyelitis Acute, or Chronic, or Acute on Chronic? @ -Acute Uncomplicated (without systemic symptoms) or Complicated (systemic symptoms)? @ -Complicated Side effects of treatment? @ -No Exacerbation, Progression, or Severe Exacerbation? @ -No Poses a threat to life or bodily function? How? (Chest pain, USA, NH, pneumonia, PE, COPD, DKA, ARF, appy, cholecystitis, CVA, Diverticulitis, Homicidal, Suicidal, threat to staff... and all critical care pts) @ -Yes this could lead to sepsis and (Eliazar Quezada) - Lab Data Lab Results 02/05/23 02/05/23 02/05/23 Range/Units 15:18 15:18 15:18 WBC 6.3 (3.8-10.6) k/uL RBC 3.80 L (4.30-5.90) m/uL Hgb 11.6 L (13.0-17.5) gm/dL Hct 33.6 L (39.0-53.0) % MCV 88.5 D (80.0-100.0) fL MCH 30.4 (25.0-35.0) pg MCHC 34.4 (31.0-37.0) g/dL RDW 13.4 (11.5-15.5) % Plt Count 253 (150-450) k/uL MPV 7.5 Neutrophils % 67 % Lymphocytes % 24 % Monocytes % 5 % Eosinophils % 2 % Basophils % 0 % Neutrophils # 4.2 (1.3-7.7) k/uL Lymphocytes # 1.5 (1.0-4.8) k/uL Monocytes # 0.3 (0-1.0) k/uL Eosinophils # 0.1 (0-0.7) k/uL Basophils # 0.0 (0-0.2) k/uL Sodium 134 L (137-145) mmol/L Potassium 4.9 (3.5-5.1) mmol/L Chloride 102 (98-107) mmol/L Carbon Dioxide 21 L (22-30) mmol/L Anion Gap 11 mmol/L BUN 24 H (9-20) mg/dL Creatinine 1.42 H (0.66-1.25) mg/dL Est GFR (CKD-EPI)AfAm 64 (>60 ml/min/1.73 sqM) Est GFR (CKD-EPI)NonAf 55 (>60 ml/min/1.73 sqM) Glucose 302 H (74-99) mg/dL Plasma Lactic Acid Andrey 2.4 H* (0.7-2.0) mmol/L Calcium 9.3 (8.4-10.2) mg/dL Total Bilirubin 0.7 (0.2-1.3) mg/dL AST 23 (17-59) U/L ALT 27 (4-49) U/L Alkaline Phosphatase 88 (38-126) U/L C-Reactive Protein 4.8 H (<1.0) mg/dL Total Protein 7.1 (6.3-8.2) g/dL Albumin 4.0 (3.5-5.0) g/dL Disposition <Karel Case - Last Filed: 02/05/23 15:18> Time of Disposition: 18:40 <Eliazar Quezada - Last Filed: 02/05/23 18:40> Clinical Impression: Osteomyelitis of foot, right, acute Disposition: ADMITTED IP TO THIS HOSP Referrals: Corrine Cabezas MD [Primary Care Provider] - 1-2 days
[2023-02-05 16:19] LABS: Basophils % (A) 0 %; Eosinophils # (A) 0.1 k/uL (0-0.7); Eosinophils % (A) 2 %; HCT 33.6 % (39.0-53.0); HGB 11.6 gm/dL (13.0-17.5); Lymphocytes # (A) 1.5 k/uL (1.0-4.8); Lymphocytes % (A) 24 %; MCH 30.4 pg (25.0-35.0); MCHC 34.4 g/dL (31.0-37.0); Mean Platelet Volume 7.5; Monocytes # (A) 0.3 k/uL (0-1.0); Monocytes % (A) 5 %; Neutrophils # (A) 4.2 k/uL (1.3-7.7); Neutrophils % (A) 67 %; Platelet Count 253 k/uL (150-450); RDW 13.4 % (11.5-15.5); WBC 6.3 k/uL (3.8-10.6)
[2023-02-05] MEDS ORDERED: VANCOMYCIN IV PER PHARMACY 1 EACH MISC MISCELLANE PRN (16:29)
[2023-02-05 16:30] LABS: ALT 27 U/L (4-49); AST 23 U/L (17-59); African American GFR (CKD) 64 (>60 ml/min/1.73 sqM); Alkaline Phosphatase 88 U/L (38-126); Anion Gap 11 mmol/L; Blood Urea Nitrogen 24 mg/dL (9-20); C Reactive Protein 4.8 mg/dL (<1.0); Calcium 9.3 mg/dL (8.4-10.2); Carbon Dioxide 21 mmol/L (22-30); Chloride 102 mmol/L (98-107); Glucose 302 mg/dL (74-99); Non-African American GFR(CKD) 55 (>60 ml/min/1.73 sqM); Potassium 4.9 mmol/L (3.5-5.1); Sodium 134 mmol/L (137-145); Total Bilirubin 0.7 mg/dL (0.2-1.3); Total Protein 7.1 g/dL (6.3-8.2)
[2023-02-05] MEDS ORDERED: CEFEPIME 2 GM in SODIUM CHLORIDE 0.9% 100 ML IVPB STA (16:30)
[2023-02-05 16:41] LABS: MCV 88.5 fL (80.0-100.0)
[2023-02-05] MEDS ORDERED: VANCOMYCIN 2,000 MG in SODIUM CHLORIDE 0.9% 500 ML 500 ML IVPB STA (18:05)
[2023-02-05] MEDS ORDERED: SODIUM CHLORIDE 0.9% 1,000 ML IV ONE (18:40)
--- NOTE | 2023-02-05 18:45 | CT ---
EXAM: CT Right Lower Extremity With Intravenous Contrast, Foot CLINICAL HISTORY: ITS.REASON CT Reason: Foot infection TECHNIQUE: Axial computed tomography images of the right foot with intravenous contrast. CTDI is 9.2 mGy and DLP is 346.9 mGy-cm. This CT exam was performed using one or more of the following dose reduction techniques: automated exposure control, adjustment of the mA and/or kV according to patient size, and/or use of iterative reconstruction technique. COMPARISON: Same day) radiographs FINDINGS: Bones/joints: Dislocation of the right second MTP joint. Irregular lucencies involving the right third metatarsal head, concerning for osteomyelitis. No acute fracture. Soft tissues: Soft tissue swelling, most prominently involving the right forefoot with wound along the plantar aspect of the right forefoot near the second and third MTP joints. Increased soft tissue density and gas about the right second and third MTP joints with effusion or abscess surrounding the right third metatarsal head. No foreign body. IMPRESSION: 1. Dislocation of the right second MTP joint. 2. Irregular lucencies involving the right third metatarsal head, concerning for osteomyelitis. 3. Soft tissue swelling, most prominently involving the right forefoot with wound along the plantar aspect of the right forefoot near the second and third MTP joints. Increased soft tissue density and gas about the right second and third MTP joints with effusion or abscess surrounding the right third metatarsal head.
--- NOTE | 2023-02-05 20:02 | XR ---
EXAM: XR Right Foot Complete, 3 or More Views CLINICAL HISTORY: Non-healing wound at 4th MTP joint. TECHNIQUE: Frontal, lateral and oblique views of the right foot. COMPARISON: None FINDINGS: Bones/joints: No displaced fracture identified. Subluxation or dislocation at the right second MTP joint. Amputation change of the right third digit at the MTP joint. Postsurgical change versus osteomyelitis changes of the right third metatarsal head. Mild degenerative change of the right first MTP joint and interphalangeal joint. . Small posterior calcaneal spur. Soft tissues: Soft tissue swelling, most prominently in the forefoot. Wound in the plantar aspect of the right forefoot. No radiopaque foreign body identified. Other: Vascular calcifications. IMPRESSION: 1. Subluxation or dislocation at the right second MTP joint. 2. Amputation change of the right third digit at the MTP joint. Postsurgical change versus osteomyelitis changes of the right third metatarsal head. 3. Soft tissue swelling, most prominently in the forefoot. Wound in the plantar aspect of the right forefoot. MTDD
[2023-02-05] MEDS: CEFEPIME 2 GM in SODIUM CHLORIDE 0.9% 100 ML IVPB SCH (22:52)
[2023-02-06] MEDS: VANCOMYCIN 2,000 MG in SODIUM CHLORIDE 0.9% 500 ML 500 ML IVPB SCH ×2 (04:58→18:38)
[2023-02-06 06:28] LABS: Glucose,Whole Blood 197 mg/dL (70-110)
[2023-02-06 07:15] LABS: ALT 23 U/L (4-49); AST 22 U/L (17-59); African American GFR (CKD) >90 (>60 ml/min/1.73 sqM); Albumin 3.2 g/dL (3.5-5.0); Albumin/Globulin Ratio 1.2; Alkaline Phosphatase 74 U/L (38-126); Anion Gap 5 mmol/L; Blood Urea Nitrogen 20 mg/dL (9-20); Calcium 8.5 mg/dL (8.4-10.2); Carbon Dioxide 25 mmol/L (22-30); Chloride 106 mmol/L (98-107); Globulin 2.6 g/dL; Glucose 174 mg/dL (74-99); Non-African American GFR(CKD) 80 (>60 ml/min/1.73 sqM); Potassium 4.5 mmol/L (3.5-5.1); Sodium 136 mmol/L (137-145); Total Bilirubin 0.6 mg/dL (0.2-1.3); Total Protein 5.8 g/dL (6.3-8.2)
[2023-02-06] MEDS: CEFEPIME 2 GM in SODIUM CHLORIDE 0.9% 100 ML IVPB SCH ×3 (08:22→23:46)
[2023-02-06 11:27] LABS: Basophils # (A) 0.03 X 10*3/uL (0.00-0.10); Basophils % (A) 0.7 %; Eosinophils # (A) 0.15 X 10*3/uL (0.04-0.35); Eosinophils % (A) 3.3 %; HCT 28.6 % (39.6-50.0); HGB 9.7 d/dL (13.0-17.0); Lymphocytes # (A) 2.13 X 10*3/uL (0.90-5.00); Lymphocytes % (A) 46.4 %; MCH 29.9 pg (27.0-32.0); MCHC 33.9 d/dL (32.0-37.0); MCV 88.3 FL (80.0-97.0); Mean Platelet Volume 9.8 FL (9.5-12.2); Monocytes # (A) 0.46 X 10*3/uL (0.20-1.00); NRBC Per 100 WBC 0 X 10*3/uL (0.00-0.01); Neutrophils % (A) 39.2 %; Platelet Count 221 X 10*3/uL (140-440); RBC 3.24 X 10*6/uL (4.40-5.60); RDW 12.6 % (11.5-14.5); WBC 4.59 X 10*3/uL (4.50-10.00)
[2023-02-06 11:28] LABS: Glucose,Whole Blood 191 mg/dL (70-110)
[2023-02-06] MEDS: DAPAGLIFLOZIN PROPANEDIOL 10 MG TABLET PO SCH (12:27)
[2023-02-06] MEDS: LOSARTAN 50 MG TAB PO SCH (12:27)
--- NOTE | 2023-02-06 12:27 | HP ---
HISTORY AND PHYSICAL CHIEF COMPLAINT: Right foot swelling and discharge. HISTORY OF PRESENT ILLNESS: This is a 58-year-old gentleman with a past medical history of recent episodes of osteomyelitis, which was treated with extended period of IV antibiotics. He was complaining of pain and bloody discharge from the right foot and because of worsening symptoms, the patient came to [facility] and admitted for further evaluation and treatment. There is no history of any fever, rigors, or chills. PAST MEDICAL HISTORY: Reviewed include recent osteomyelitis. Rest of the history and rest of the chart is also reviewed. HOME MEDICATIONS: Reviewed include metformin. Doses and rest of medications noted. ALLERGIES: Levaquin. FAMILY HISTORY: Breast cancer. SOCIAL HISTORY: Previous history of smoking. REVIEW OF SYSTEMS: Fourteen-point review is negative except as mentioned earlier. PHYSICAL EXAMINATION: VITAL SIGNS: Pulse is 78, blood pressure 137/80, respirations 15. HEENT: Conjunctivae normal. NECK: No JVD. CARDIOVASCULAR: S1, S2. RESPIRATIONS: Breath sounds diminished at the bases. ABDOMEN: Soft, nontender. LEGS: Right foot infection present, possible osteomyelitis, drainage discharge, and some tenderness. LABORATORY DATA: Reviewed. ASSESSMENT: 1. Right foot osteomyelitis and diabetic foot with failure of outpatient treatment. 2. History of previous right foot osteomyelitis and prolonged intravenous antibiotic treatment via PICC line. 3. Diabetes mellitus, type 2. 4. Hypertension. 5. Multiple medical issues. 6. History of methicillin-resistant Staphylococcus aureus. RECOMMENDATIONS AND DISCUSSION: This is a 58-year-old gentleman, who presented with multiple complex medical issues. We will monitor the patient closely. Recommend to continue current medications, continue symptomatic treatment. Follow closely with Vascular Surgery, possible debridement, and I would also closely follow with Infectious Disease. Resume the home medications. Monitor blood sugars closely. Prognosis guarded. Further recommendations to follow. MMODL / IJN: [id number] /
[2023-02-06] MEDS: FUROSEMIDE 40 MG TAB PO SCH (12:28)
[2023-02-06] MEDS: hydrALAZINE HCL 25 MG TAB PO SCH ×2 (12:28→21:29)
[2023-02-06] MEDS: SPIRONOLACTONE 25 MG TAB PO SCH (12:28)
[2023-02-06] MEDS: carvediloL 12.5 MG TAB PO SCH ×2 (12:28→21:30)
[2023-02-06] MEDS: metFORMIN 500 MG TAB PO SCH ×3 (12:28→20:46)
--- NOTE | 2023-02-06 12:46 | P.GSCN ---
History of Present Illness Consult date: 02/06/23 Reason for Consult: Right foot abscess for I&D and deep cultures Requesting physician: Clarence Tavares History of present illness: This is a pleasant 58-year-old male patient with a history of diabetes mellitus with peripheral neuropathy and previous chronic wounds requiring amputation of right third toe. Patient presents to emergency department with concerns for ongoing infection in his right foot. He is currently on oral antibiotics and has been following with Dr. Tavares and recently had IV antibiotics per PICC line which was discontinued 2 weeks ago. Patient had a CT of the right foot with concerns of osteomyelitis, gas was seen the second and third MTP joints. Vascular surgery was consulted for abscess and deep tissue cultures. Patient denies any pain in his foot, he states he has neuropathy, no shortness of breath, chest pain, abdominal pain, fevers or chills. He's been afebrile. Currently on vancomycin and Maxipime. Review of Systems A 14 point review systems was completed all pertinent positives and negatives as stated in the HPI. Past Medical History Past Medical History: Diabetes Mellitus, GERD/Reflux, Hypertension Additional Past Medical History / Comment(s): osteomyelitis and pain left foot, stepped on kristen nail October 2018,hx neuropathy History of Any Multi-Drug Resistant Organisms: MRSA Year Discovered:: march 2022 MDRO Source:: toe Past Surgical History: Tonsillectomy Additional Past Surgical History / Comment(s): endoscopy, middle toe rt foot removed ,lft 2nd toe tip removed Past Anesthesia/Blood Transfusion Reactions: No Reported Reaction Past Psychological History: No Psychological Hx Reported Smoking Status: Former smoker Past Alcohol Use History: None Reported Additional Past Alcohol Use History / Comment(s): STARTED SMOKING AT AROUND 21 SMOKED LESS 1/2PPD QUIT 1989 Past Drug Use History: None Reported - Past Family History Mother Family Medical History: Cancer Additional Family Medical History / Comment(s): breast cancer Father Family Medical History: Cancer Additional Family Medical History / Comment(s): lung cancer Sister(s) Family Medical History: Cancer Additional Family Medical History / Comment(s): lung cancer Medications and Allergies Home Medications Medication Instructions Recorded Confirmed Type Olmesartan [Benicar] 20 mg PO DAILY 02/17/15 02/05/23 History metFORMIN HCL [Glucophage] 1,000 mg PO BID 02/17/15 02/05/23 History metFORMIN HCL [Glucophage] 500 mg PO DAILY@1700 12/01/22 02/05/23 History Dapagliflozin Propanediol [Farxiga] 10 mg PO DAILY #30 tab 12/10/22 02/05/23 Rx Aspirin 81 mg PO DAILY #30 tab 12/11/22 02/05/23 Rx Atorvastatin [Lipitor] 20 mg PO HS #30 tab 12/11/22 02/05/23 Rx Clopidogrel [Plavix] 75 mg PO DAILY #30 tab 12/11/22 02/05/23 Rx Spironolactone [Aldactone] 25 mg PO DAILY #30 tab 12/11/22 02/05/23 Rx hydrALAZINE HCL [Apresoline] 25 mg PO BID #90 tab 12/11/22 02/05/23 Rx Cephalexin [Keflex] 500 mg PO Q8HR 02/05/23 02/05/23 History Furosemide [Lasix] 40 mg PO DAILY 02/05/23 02/05/23 History carvediloL [Coreg] 25 mg PO BID 02/05/23 02/05/23 History Allergies Allergy/AdvReac Type Severity Reaction Status Date / Time levofloxacin [From Levaquin] Allergy Swelling, Verified 02/05/23 19:14 RASH Penicillins Allergy Unknown Verified 02/05/23 19:14 Childhood Surgical - Exam Vital Signs Temp Pulse Resp BP Pulse Ox 97.7 F 81 20 104/65 100 02/05/23 15:16 02/05/23 15:16 02/05/23 15:16 02/05/23 15:16 02/05/23 15:16 General appearance: The patient is alert, oriented, appears in no acute distress. HET: Head is normocephalic and atraumatic. Pupils are equal and reactive. Neck: Supple. Heart: Regular. Lungs: Equal expansion, normal respiratory effort. Abdomen: Soft, nontender, nondistended. Extremities: Bilateral palpable DP and PT pulses. Right foot third toe amputation site well healed, callus to the lateral aspect of great toe and a diabetic ulcer on the plantar aspect of the forefoot. Neurological: No focal deficits. Results - Labs 02/06/23 06:46 02/06/23 06:46 Abnormal Lab Results - Last 24 Hours (Table) 02/05/23 02/05/23 02/05/23 Range/Units 15:18 15:18 15:18 RBC 3.80 L (4.30-5.90) m/uL Hgb 11.6 L (13.0-17.5) gm/dL Hct 33.6 L (39.0-53.0) % Sodium 134 L (137-145) mmol/L Carbon Dioxide 21 L (22-30) mmol/L BUN 24 H (9-20) mg/dL Creatinine 1.42 H (0.66-1.25) mg/dL Glucose 302 H (74-99) mg/dL POC Glucose (mg/dL) (70-110) mg/dL Plasma Lactic Acid Andrey 2.4 H* (0.7-2.0) mmol/L C-Reactive Protein 4.8 H (<1.0) mg/dL Total Protein (6.3-8.2) g/dL Albumin (3.5-5.0) g/dL 02/06/23 02/06/23 Range/Units 06:27 06:46 RBC (4.30-5.90) m/uL Hgb (13.0-17.5) gm/dL Hct (39.0-53.0) % Sodium 136 L (137-145) mmol/L Carbon Dioxide (22-30) mmol/L BUN (9-20) mg/dL Creatinine (0.66-1.25) mg/dL Glucose 174 H (74-99) mg/dL POC Glucose (mg/dL) 197 H (70-110) mg/dL Plasma Lactic Acid Andrey (0.7-2.0) mmol/L C-Reactive Protein (<1.0) mg/dL Total Protein 5.8 L (6.3-8.2) g/dL Albumin 3.2 L (3.5-5.0) g/dL Microbiology - Last 24 Hours (Table) 02/05/23 15:30 Gram Stain - Preliminary Foot - Right Diabetes panel 02/05/23 02/06/23 Range/Units 15:18 06:46 Sodium 134 L 136 L (137-145) mmol/L Potassium 4.9 4.5 (3.5-5.1) mmol/L Chloride 102 106 (98-107) mmol/L Carbon Dioxide 21 L 25 (22-30) mmol/L BUN 24 H 20 (9-20) mg/dL Creatinine 1.42 H 1.05 (0.66-1.25) mg/dL Glucose 302 H 174 H (74-99) mg/dL Calcium 9.3 8.5 (8.4-10.2) mg/dL AST 23 22 (17-59) U/L ALT 27 23 (4-49) U/L Alkaline Phosphatase 88 74 (38-126) U/L Total Protein 7.1 5.8 L (6.3-8.2) g/dL Albumin 4.0 3.2 L (3.5-5.0) g/dL Calcium panel 02/05/23 02/06/23 Range/Units 15:18 06:46 Calcium 9.3 8.5 (8.4-10.2) mg/dL Albumin 4.0 3.2 L (3.5-5.0) g/dL Pituitary panel 02/05/23 02/06/23 Range/Units 15:18 06:46 Sodium 134 L 136 L (137-145) mmol/L Potassium 4.9 4.5 (3.5-5.1) mmol/L Chloride 102 106 (98-107) mmol/L Carbon Dioxide 21 L 25 (22-30) mmol/L BUN 24 H 20 (9-20) mg/dL Creatinine 1.42 H 1.05 (0.66-1.25) mg/dL Glucose 302 H 174 H (74-99) mg/dL Calcium 9.3 8.5 (8.4-10.2) mg/dL Adrenal panel 02/05/23 02/06/23 Range/Units 15:18 06:46 Sodium 134 L 136 L (137-145) mmol/L Potassium 4.9 4.5 (3.5-5.1) mmol/L Chloride 102 106 (98-107) mmol/L Carbon Dioxide 21 L 25 (22-30) mmol/L BUN 24 H 20 (9-20) mg/dL Creatinine 1.42 H 1.05 (0.66-1.25) mg/dL Glucose 302 H 174 H (74-99) mg/dL Calcium 9.3 8.5 (8.4-10.2) mg/dL Total Bilirubin 0.7 0.6 (0.2-1.3) mg/dL AST 23 22 (17-59) U/L ALT 27 23 (4-49) U/L Alkaline Phosphatase 88 74 (38-126) U/L Total Protein 7.1 5.8 L (6.3-8.2) g/dL Albumin 4.0 3.2 L (3.5-5.0) g/dL - Imaging Comments: Right foot x-ray report subluxation or dislocation of the right second MTP joint. Amputation change of the right third digit at the end TP joint. Postsurgical change versus osteomyelitis changes of the right third metatarsal head. Soft tissue swelling most prominently in the forefoot. Wound in the plantar aspect of the right forefoot. Right foot CT reports dislocation of the right second MTP joint. Irregular lucencies involving the right third metatarsal head, concerning for osteomyelitis. Soft tissue swelling, most prominently involving the right forefoot with wound along the plantar aspect of the right forefoot near the second and third MTP joints. Increased soft tissue density and gas about the right second and third MTP joints with effusion or abscess surrounding the right third metatarsal head. Assessment and Plan Assessment: 1. Diabetic ulcer right foot concerning for osteomyelitis 2. Right great toe callus 3. Diabetes mellitus with peripheral neuropathy Plan: 1. Keep nothing by mouth 2. Plan for surgical debridement and deep tissue cultures later today 3. Continue recommendations from infectious disease 4. Patient will need outpatient wound care follow-up Thank you for this consultation, we will continue to follow. The impression and plan of care has been dictated as directed. Dr. Heard I performed a history and examination of this patient, discussed the same with the dictator. I agree with the dictator's note ,documented as a scribe. Any additional findings or plans will be noted.
[2023-02-06 13:13] LABS: Erythrocyte Sedimentation Rate 33 mm/Hr (0-20)
[2023-02-06] MEDS ORDERED: LACTATED RINGERS 1,000 ML IV ONE (15:06)
[2023-02-06] MEDS ORDERED: ONDANSETRON 4 MG/2 ML VIAL ONE (15:21)
[2023-02-06 15:25] LABS: Glucose,Whole Blood 178 mg/dL (70-110)
[2023-02-06] MEDS ORDERED: ONDANSETRON 4 MG/2 ML VIAL IVP ONE (15:25)
[2023-02-06] MEDS ORDERED: FAMOTIDINE 20 MG/2 ML VIAL IVP ONE (15:39)
[2023-02-06] MEDS ORDERED: SUCCINYLCHOLINE CHLORIDE 200 MG/10 ML VIAL IV ONE (16:02)
[2023-02-06] MEDS ORDERED: ePHEDrine 50 MG/ML 1 ML VIAL ONE (16:02)
[2023-02-06] MEDS ORDERED: PHENYLEPHRINE-0.9% NACL SYG 1,000 MCG/10 ML SYRINGE ONE (16:02)
[2023-02-06] MEDS ORDERED: LIDOCAINE 2% INJ 20 MG/ML (2 ML VIAL) ONE (16:02)
[2023-02-06] MEDS ORDERED: PROPOFOL 10 MG/ML 20 ML VIAL IV ONE (16:02)
[2023-02-06] MEDS ORDERED: fentaNYL (PF) 50 MCG/ML 2 ML AMP ONE (16:02)
[2023-02-06] MEDS ORDERED: MIDAZOLAM 2 MG/2 ML VIAL ONE (16:02)
--- NOTE | 2023-02-06 17:10 | P.OP ---
Date of Procedure: 02/06/23 Description of Procedure: Preoperative diagnosis: [Right plantar foot wound, previous right third toe dictation] Postoperative diagnosis: Same Procedure: [Sharp excisional debridement right lower extremity plantar wound to bone 3 x 2.3 x 2 cm with undermining of 0.8 cm at the 3 o'clock position Sharp excisional debridement great toe wound 1.0 x 1.0 x 0.2 cm to subcutaneous tissue Application wound VAC] Surgeon: Aletha Heard D.O. EBL: [10 mL] IV fluids: [See records] Urine output: [Not measured] Drains: [None] Complications: [None immediately apparent] Condition: [Stable to recovery] Operative indication and findings: [Patient is a 58-year-old male with previous right third toe amputation due to diabetic foot infection. He presented for nonhealing wound and an ongoing infection therefore imaging was taken showing fluid with areas of gas formation in the foot at the level close to the ulcer ation. Due to this surgical debridement was recommended.] Risks and benefits were discussed. He seemingly understood and was willing to proceed. Procedure in detail: [Patient was taken to the operative suite and placed in supine position. The right lower extremity is prepped and draped in usual sterile fashion. A preprocedure timeout was performed, all parties were in agreement. The callus was first abbreviated showing the overlying wound. The wound itself had significant fibrinous and hypertrophic tissue which was excised. This time all the way down to the level of the previously amputated metatarsal. The portion of the bone was excised with a rongeur. There did appear to be tracking underneath the second metatarsal as well but no obvious connection. The majority of the nonviable tissue was removed. The wound measurements are as above. The wound was copiously irrigated and wound VAC dressing was placed. Attention was then turned towards the large callus at the great toe. Sharp excisional debridement performed which revealed a wound as above. This is debrided on a low-dose of beta-hCG with healthy-appearing granulation tissue. This area was irrigated and a dressing was placed with the patient was allowed awaken from anesthesia and transferred to recovery in stable condition having tolerated the procedure well.]
[2023-02-06 17:23] LABS: Glucose,Whole Blood 214 mg/dL (70-110)
[2023-02-06] MEDS ORDERED: carvediloL 12.5 MG TAB PO SCH (17:30)
[2023-02-06 20:38] LABS: Glucose,Whole Blood 247 mg/dL (70-110)
[2023-02-06] MEDS: ATORVASTATIN 20 MG TAB PO SCH (20:46)
[2023-02-06] MEDS: HEPARIN SODIUM,PORCINE 5,000 UNIT/ML 1 ML VIAL SQ SCH (20:46)
[2023-02-06] MEDS ORDERED: metFORMIN 500 MG TAB PO SCH (21:00)
[2023-02-06] MEDS ORDERED: hydrALAZINE HCL 25 MG TAB PO SCH (21:00)
--- NOTE | 2023-02-06 22:04 | P.CONS ---
History of Present Illness - Reason for Consult Consult date: 02/06/23 - History of Present Illness Patient is a 58-year-old male with a past medical history significant diabetes mellitus hypertension reflux history of osteomyelitis and diabetic foot infection recent completed a course of IV antibiotic for left foot tenosynovitis with MSSA bacteremia presenting to the office with increasing pain swelling redness to the right foot in this patient who did have a chronic ulcer on the plantar aspect of the right foot with more drainage patient on evaluation was noticed to have significant deep wound with concern for deep infection patient was advised to go to the hospital patient denies any fever he did have chills denies any headache or URI symptoms no chest pain shortness of breath or cough and no diarrhea. Did have diabetic neuropathy denies pain to the right foot plantar wound area patient did have a swelling redness extending on the dorsal head of the right foot did have some drainage but no foul-smelling some chills but no high-grade fever with this and the patient was evaluated on presentation to hospital the patient was afebrile and no fever has been recorded subsequently patient did have normal white count kidney function was normal there is of the normal CRP is 4.60 sed rate is 33 patient did have a [address] of the right foot concerning for some soft tissue density around the second and third metatarsophalangeal joint concerning for an abscess for which vascular surgery has been consulted and the patient is scheduled for surgery this afternoon interventions he was consulted for management of antibiotic therapy patient has been empirically started on vancomycin for pain pending cultures and work-up Past Medical History Past Medical History: Diabetes Mellitus, GERD/Reflux, Hypertension Additional Past Medical History / Comment(s): osteomyelitis and pain left foot, stepped on kristen nail October 2018,hx neuropathy History of Any Multi-Drug Resistant Organisms: MRSA Year Discovered:: march 2022 MDRO Source:: toe Past Surgical History: Tonsillectomy Additional Past Surgical History / Comment(s): endoscopy, middle toe rt foot removed ,lft 2nd toe tip removed Past Anesthesia/Blood Transfusion Reactions: No Reported Reaction Past Psychological History: No Psychological Hx Reported Smoking Status: Former smoker Past Alcohol Use History: None Reported Additional Past Alcohol Use History / Comment(s): STARTED SMOKING AT AROUND 21 SMOKED LESS 1/2PPD QUIT 1989 Past Drug Use History: None Reported - Past Family History Mother Family Medical History: Cancer Additional Family Medical History / Comment(s): breast cancer Father Family Medical History: Cancer Additional Family Medical History / Comment(s): lung cancer Sister(s) Family Medical History: Cancer Additional Family Medical History / Comment(s): lung cancer Medications and Allergies Home Medications Medication Instructions Recorded Confirmed Type Olmesartan [Benicar] 20 mg PO DAILY 02/17/15 02/05/23 History metFORMIN HCL [Glucophage] 1,000 mg PO BID 02/17/15 02/05/23 History metFORMIN HCL [Glucophage] 500 mg PO DAILY@1700 12/01/22 02/05/23 History Dapagliflozin Propanediol [Farxiga] 10 mg PO DAILY #30 tab 12/10/22 02/05/23 Rx Aspirin 81 mg PO DAILY #30 tab 12/11/22 02/05/23 Rx Atorvastatin [Lipitor] 20 mg PO HS #30 tab 12/11/22 02/05/23 Rx Clopidogrel [Plavix] 75 mg PO DAILY #30 tab 12/11/22 02/05/23 Rx Spironolactone [Aldactone] 25 mg PO DAILY #30 tab 12/11/22 02/05/23 Rx hydrALAZINE HCL [Apresoline] 25 mg PO BID #90 tab 12/11/22 02/05/23 Rx Cephalexin [Keflex] 500 mg PO Q8HR 02/05/23 02/05/23 History Furosemide [Lasix] 40 mg PO DAILY 02/05/23 02/05/23 History carvediloL [Coreg] 25 mg PO BID 02/05/23 02/05/23 History Allergies Allergy/AdvReac Type Severity Reaction Status Date / Time levofloxacin [From Levaquin] Allergy Swelling, Verified 02/05/23 19:14 RASH Penicillins Allergy Unknown Verified 02/05/23 19:14 Childhood Physical Exam Vitals: Vital Signs Temp Pulse Pulse Resp BP BP Pulse Ox 02/06/23 08:21 96 02/06/23 07:19 98.3 F 78 15 137/80 98 02/06/23 02:59 98.7 F 74 17 93/54 97 02/05/23 21:34 18 02/05/23 21:11 98.1 F 59 L 20 130/76 100 02/05/23 20:47 98.0 F 68 18 114/72 100 02/05/23 19:38 64 18 112/40 100 02/05/23 18:17 72 18 108/67 99 02/05/23 15:16 97.7 F 81 20 104/65 100 Intake and Output 02/05/23 02/06/23 02/06/23 22:59 06:59 14:59 Other: # Voids 1 Weight 121.109 kg Results CBC & Chem 7: 02/07/23 05:47 02/07/23 05:47 Labs: Abnormal Lab Results - Last 24 Hours (Table) 02/05/23 02/05/23 02/05/23 Range/Units 15:18 15:18 15:18 RBC 3.80 L (4.30-5.90) m/uL Hgb 11.6 L (13.0-17.5) gm/dL Hct 33.6 L (39.0-53.0) % Sodium 134 L (137-145) mmol/L Carbon Dioxide 21 L (22-30) mmol/L BUN 24 H (9-20) mg/dL Creatinine 1.42 H (0.66-1.25) mg/dL Glucose 302 H (74-99) mg/dL POC Glucose (mg/dL) (70-110) mg/dL Plasma Lactic Acid Andrey 2.4 H* (0.7-2.0) mmol/L C-Reactive Protein 4.8 H (<1.0) mg/dL Total Protein (6.3-8.2) g/dL Albumin (3.5-5.0) g/dL 02/06/23 02/06/23 Range/Units 06:27 06:46 RBC (4.30-5.90) m/uL Hgb (13.0-17.5) gm/dL Hct (39.0-53.0) % Sodium 136 L (137-145) mmol/L Carbon Dioxide (22-30) mmol/L BUN (9-20) mg/dL Creatinine (0.66-1.25) mg/dL Glucose 174 H (74-99) mg/dL POC Glucose (mg/dL) 197 H (70-110) mg/dL Plasma Lactic Acid Andrey (0.7-2.0) mmol/L C-Reactive Protein (<1.0) mg/dL Total Protein 5.8 L (6.3-8.2) g/dL Albumin 3.2 L (3.5-5.0) g/dL Microbiology - Last 24 Hours (Table) 02/05/23 15:30 Gram Stain - Preliminary Foot - Right Assessment and Plan Plan: 1patient with extensive right diabetic foot infection concerning for underlying osteomyelitis with abnormal CT suspicious for an abscess we will need to cover for resistant gram-positive as well as gram-negative as the patient was recently on cefazolin followed by Keflex. 2-Patient with Levaquin and penicillin allergy admitted to the number of antibiotics safe to use. 3await I&D and deep culture. 4we will continue patient vancomycin and cefepime , while watching his clinical course and closely and the patient will likely need IV antibiotic on discharge depending upon the culture results We will follow on clinical condition and cultures to further adjust medication if needed Thank you for this consultation we will follow the patient along with you Dictation was produced using [employer] dictation software. please excuse any grammatical, word or spelling errors. Time with Patient: Greater than 30
[2023-02-07 01:23] LABS: Glucose,Whole Blood 171 mg/dL (70-110)
[2023-02-07] MEDS ORDERED: SODIUM CHLORIDE 0.9% 500 ML 500 ML IV ONE (01:34)
[2023-02-07] MEDS: VANCOMYCIN 2,000 MG in SODIUM CHLORIDE 0.9% 500 ML 500 ML IVPB SCH ×2 (05:44→17:44)
[2023-02-07 06:01] LABS: Glucose,Whole Blood 143 mg/dL (70-110)
[2023-02-07] MEDS: carvediloL 12.5 MG TAB PO SCH ×2 (06:45→17:10)
[2023-02-07] MEDS: ASPIRIN 81 MG PO SCH (08:44)
[2023-02-07] MEDS: metFORMIN 500 MG TAB PO SCH ×3 (08:44→21:22)
[2023-02-07] MEDS: HEPARIN SODIUM,PORCINE 5,000 UNIT/ML 1 ML VIAL SQ SCH ×2 (08:44→21:22)
[2023-02-07] MEDS: CLOPIDOGREL 75 MG TAB PO SCH (08:44)
[2023-02-07] MEDS: DAPAGLIFLOZIN PROPANEDIOL 10 MG TABLET PO SCH (08:46)
[2023-02-07] MEDS ORDERED: LOSARTAN 50 MG TAB PO SCH (09:00)
[2023-02-07] MEDS ORDERED: FUROSEMIDE 40 MG TAB PO SCH (09:00)
[2023-02-07] MEDS ORDERED: SPIRONOLACTONE 25 MG TAB PO SCH (09:00)
[2023-02-07] MEDS ORDERED: DAPAGLIFLOZIN PROPANEDIOL 10 MG TABLET PO SCH (09:00)
[2023-02-07] MEDS: SPIRONOLACTONE 25 MG TAB PO SCH (09:06)
[2023-02-07] MEDS: CEFEPIME 2 GM in SODIUM CHLORIDE 0.9% 100 ML IVPB SCH ×3 (09:08→23:41)
[2023-02-07] MEDS: LOSARTAN 50 MG TAB PO SCH (09:27)
[2023-02-07] MEDS: FUROSEMIDE 40 MG TAB PO SCH (09:27)
[2023-02-07] MEDS: hydrALAZINE HCL 25 MG TAB PO SCH ×2 (09:27→21:20)
[2023-02-07 10:55] LABS: Basophils # (A) 0.02 X 10*3/uL (0.00-0.10); Basophils % (A) 0.4 %; Eosinophils # (A) 0.15 X 10*3/uL (0.04-0.35); Eosinophils % (A) 3.2 %; HCT 29.2 % (39.6-50.0); HGB 9.9 d/dL (13.0-17.0); Lymphocytes # (A) 1.84 X 10*3/uL (0.90-5.00); Lymphocytes % (A) 38.7 %; MCH 29.9 pg (27.0-32.0); MCHC 33.9 d/dL (32.0-37.0); MCV 88.2 FL (80.0-97.0); Mean Platelet Volume 9.4 FL (9.5-12.2); Monocytes # (A) 0.44 X 10*3/uL (0.20-1.00); Monocytes % (A) 9.3 %; NRBC Per 100 WBC 0 X 10*3/uL (0.00-0.01); Neutrophils # (A) 2.28 X 10*3/uL (1.80-7.70); Platelet Count 209 X 10*3/uL (140-440); RBC 3.31 X 10*6/uL (4.40-5.60); RDW 12.6 % (11.5-14.5); WBC 4.75 X 10*3/uL (4.50-10.00)
[2023-02-07 11:03] LABS: Glucose,Whole Blood 170 mg/dL (70-110)
[2023-02-07 11:04] LABS: BUN/Creat Ratio 14.45 Ratio (12.00-20.00); Blood Urea Nitrogen 15.9 mg/dL (9.0-27.0); Calcium 8.8 mg/dL (8.7-10.3); Chloride 106 mmol/L (96-109); Glucose 125 mg/dL (70-110); Potassium 4.6 mmol/L (3.5-5.5); Sodium 140 mmol/L (135-145)
--- NOTE | 2023-02-07 11:17 | P.CONS ---
History of Present Illness - Reason for Consult Consult date: 02/07/23 wound care - History of Present Illness This is a pleasant 58-year-old male patient with a history of diabetes mellitus with peripheral neuropathy and previous chronic wounds requiring amputation of right third toe. Patient underwent a surgical debridement of the ulceration to the right plantar forefoot. Ulceration size 3 x 2.3 x 2 cm with undermining of 0.8 at 3 o'clock position and a great toe wound at 1.0 x 1.0 x 0.2 cm. Patient has a negative pressure wound VAC in place at this time. CT of the foot shows osteomyelitis. Involving the right forefoot with wound along the plantar aspect of the right forefoot near the second and third MTP joint. Increased soft tissue density in gas about the right second and third MTP joints with effusion or abscess surrounding the right third metatarsal head. Review Of Systems: Constitutional: No fever, no chills, no night sweats. No weight change. No weakness, fatigue or lethargy. No daytime sleepiness. Integumentary:reports wounds, no lesions. No rash or pruritus. No unusual bruising. No change in hair or nails. Physical exam: General Appearance: Alert, cooperative, no distress, appears stated age. Skin: See HPI all other Skin color, texture, tugor normal, no rashes or lesions. Neurologic: Alert oriented x3 Assessment: 1. Nonhealing ulceration with bone necrosis right forefoot 2. Diabetic foot ulcer 3. Osteomyelitis Plan: 1. Continue with negative pressure wound VAC with black foam at 125 mmHg negative pressure. Change Friday. Patient to be discharged and continue with negative pressure wound VAC. If the wound VAC is not available may apply absorptive silver rope, saline moistened gauze, dry gauze, rolled gauze and secure with paper tape until seen by home care to reapply the negative pressure wound VAC. Patient is agreeable to come to the wound care center for treatment. Please call for an appointment upon discharge. Continue with nonweightbearing to the right lower extremity Thank you for the consultation any questions to contact the wound care center DNP note has been reviewed and discussed with Dr. Meraz and the impression and plan of care has been directed as dictated. Past Medical History Past Medical History: Diabetes Mellitus, GERD/Reflux, Hypertension Additional Past Medical History / Comment(s): osteomyelitis and pain left foot, stepped on kristen nail October 2018,hx neuropathy History of Any Multi-Drug Resistant Organisms: MRSA Year Discovered:: march 2022 MDRO Source:: toe Past Surgical History: Tonsillectomy Additional Past Surgical History / Comment(s): endoscopy, middle toe rt foot removed ,lft 2nd toe tip removed Past Anesthesia/Blood Transfusion Reactions: No Reported Reaction Past Psychological History: No Psychological Hx Reported Smoking Status: Former smoker Past Alcohol Use History: None Reported Additional Past Alcohol Use History / Comment(s): STARTED SMOKING AT AROUND 21 SMOKED LESS 1/2PPD QUIT 1989 Past Drug Use History: None Reported - Past Family History Mother Family Medical History: Cancer Additional Family Medical History / Comment(s): breast cancer Father Family Medical History: Cancer Additional Family Medical History / Comment(s): lung cancer Sister(s) Family Medical History: Cancer Additional Family Medical History / Comment(s): lung cancer Medications and Allergies Home Medications Medication Instructions Recorded Confirmed Type Olmesartan [Benicar] 20 mg PO DAILY 02/17/15 02/05/23 History metFORMIN HCL [Glucophage] 1,000 mg PO BID 02/17/15 02/05/23 History metFORMIN HCL [Glucophage] 500 mg PO DAILY@1700 12/01/22 02/05/23 History Dapagliflozin Propanediol [Farxiga] 10 mg PO DAILY #30 tab 12/10/22 02/05/23 Rx Aspirin 81 mg PO DAILY #30 tab 12/11/22 02/05/23 Rx Atorvastatin [Lipitor] 20 mg PO HS #30 tab 12/11/22 02/05/23 Rx Clopidogrel [Plavix] 75 mg PO DAILY #30 tab 12/11/22 02/05/23 Rx Spironolactone [Aldactone] 25 mg PO DAILY #30 tab 12/11/22 02/05/23 Rx hydrALAZINE HCL [Apresoline] 25 mg PO BID #90 tab 12/11/22 02/05/23 Rx Cephalexin [Keflex] 500 mg PO Q8HR 02/05/23 02/05/23 History Furosemide [Lasix] 40 mg PO DAILY 02/05/23 02/05/23 History carvediloL [Coreg] 25 mg PO BID 02/05/23 02/05/23 History Allergies Allergy/AdvReac Type Severity Reaction Status Date / Time levofloxacin [From Levaquin] Allergy Swelling, Verified 02/05/23 19:14 RASH Penicillins Allergy Unknown Verified 02/05/23 19:14 Childhood Physical Exam Vitals: Vital Signs Temp Pulse Resp BP Pulse Ox 02/07/23 09:36 96 02/07/23 07:10 98.0 F 81 18 105/58 96 02/07/23 02:21 67 115/69 98 02/07/23 01:30 85/48 02/07/23 01:12 98.5 F 69 16 85/48 97 02/06/23 20:07 97.2 F L 73 18 103/66 99 02/06/23 17:30 71 21 93/60 96 02/06/23 17:15 79 20 87/55 98 02/06/23 17:00 97 F L 90 14 103/52 99 02/06/23 15:05 96.9 F L 66 18 113/59 98 02/06/23 13:12 98.6 F 69 14 97/57 98 Intake and Output 02/06/23 02/07/23 02/07/23 22:59 06:59 14:59 Intake Total 700 Output Total 5 Balance 695 Intake: IV 700 Output: Estimated Blood Loss 5 Other: # Voids 4 1 Results CBC & Chem 7: 02/07/23 05:47 02/07/23 05:47 Labs: Abnormal Lab Results - Last 24 Hours (Table) 02/06/23 02/06/23 02/06/23 Range/Units 06:46 06:46 11:26 RBC 3.24 L (4.40-5.60) X 10*6/uL Hgb 9.7 L (13.0-17.0) d/dL Hct 28.6 L (39.6-50.0) % MPV (9.5-12.2) FL ESR 33 H (0-20) mm/Hr Glucose (70-110) mg/dL POC Glucose (mg/dL) 191 H (70-110) mg/dL C-Reactive Protein 4.60 H (0.00-0.80) mg/dL 02/06/23 02/06/23 02/06/23 Range/Units 15:23 17:22 20:35 RBC (4.40-5.60) X 10*6/uL Hgb (13.0-17.0) d/dL Hct (39.6-50.0) % MPV (9.5-12.2) FL ESR (0-20) mm/Hr Glucose (70-110) mg/dL POC Glucose (mg/dL) 178 H 214 H 247 H (70-110) mg/dL C-Reactive Protein (0.00-0.80) mg/dL 02/07/23 02/07/23 02/07/23 Range/Units 01:20 05:47 05:47 RBC 3.31 L (4.40-5.60) X 10*6/uL Hgb 9.9 L (13.0-17.0) d/dL Hct 29.2 L (39.6-50.0) % MPV 9.4 L (9.5-12.2) FL ESR (0-20) mm/Hr Glucose 125 H (70-110) mg/dL POC Glucose (mg/dL) 171 H (70-110) mg/dL C-Reactive Protein (0.00-0.80) mg/dL 02/07/23 02/07/23 Range/Units 05:59 11:02 RBC (4.40-5.60) X 10*6/uL Hgb (13.0-17.0) d/dL Hct (39.6-50.0) % MPV (9.5-12.2) FL ESR (0-20) mm/Hr Glucose (70-110) mg/dL POC Glucose (mg/dL) 143 H 170 H (70-110) mg/dL C-Reactive Protein (0.00-0.80) mg/dL Microbiology - Last 24 Hours (Table) 02/05/23 15:30 Gram Stain - Preliminary Foot - Right Assessment and Plan (1) Non-pressure 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 Current Visit: No Status: Acute Code(s): L97.514 - NON-PRS CHRONIC ULCER OTH PRT RIGHT FOOT W NECROSIS OF BONE SNOMED Code(s): 55534554553479677 (2) Osteomyelitis of foot, right, acute Current Visit: Yes Status: Acute Code(s): M86.171 - OTHER ACUTE OSTEOMYELITIS, RIGHT ANKLE AND FOOT SNOMED Code(s): 2172382435864822 (3) Diabetic foot ulcer Current Visit: No Status: Acute Code(s): E11.621 - TYPE 2 DIABETES MELLITUS WITH FOOT ULCER; L97.509 - NON-PRESSURE CHRONIC ULCER OTH PRT UNSP FOOT W UNSP SEVERITY SNOMED Code(s): 103587085
--- NOTE | 2023-02-07 12:41 | P.PN ---
Subjective Progress Note Date: 02/07/23 Principal diagnosis: Right foot wound Patient seen and examined today as a follow-up. Yesterday he underwent surgical debridement with wound VAC placement to the right plantar aspect of foot. Apparently patient has had some hypotension through the night. He denies any dizziness, shortness of breath or chest pain. No fevers or chills. He remains on Maxipime and vancomycin. Objective - Vital Signs Vital signs: Vital Signs Temp 98.0 F 02/07/23 07:10 Pulse 81 02/07/23 07:10 Resp 18 02/07/23 07:10 BP 105/58 02/07/23 07:10 Pulse Ox 96 02/07/23 07:10 FiO2 Intake & Output 02/06/23 02/07/23 02/07/23 18:59 06:59 18:59 Intake Total 700 Output Total 5 Balance 695 Intake: IV 700 Output: Estimated Blood Loss 5 Other: # Voids 4 1 - Exam General appearance: The patient is alert, oriented, appears in no acute distress. HET: Head is normocephalic and atraumatic. Pupils are equal and reactive. Neck: Supple. Heart: Regular. Lungs: Equal expansion, normal respiratory effort. Abdomen: Soft, nontender, nondistended. Extremities: Right foot with wound VAC in place with good suction, dressing c lean dry and intact. Neurological: No focal deficits. - Labs CBC & Chem 7: 02/07/23 05:47 02/07/23 05:47 Labs: Abnormal Lab Results - Last 24 Hours (Table) 02/06/23 02/06/23 02/06/23 Range/Units 06:46 06:46 11:26 RBC 3.24 L (4.40-5.60) X 10*6/uL Hgb 9.7 L (13.0-17.0) d/dL Hct 28.6 L (39.6-50.0) % ESR 33 H (0-20) mm/Hr POC Glucose (mg/dL) 191 H (70-110) mg/dL C-Reactive Protein 4.60 H (0.00-0.80) mg/dL 02/06/23 02/06/23 02/06/23 Range/Units 15:23 17:22 20:35 RBC (4.40-5.60) X 10*6/uL Hgb (13.0-17.0) d/dL Hct (39.6-50.0) % ESR (0-20) mm/Hr POC Glucose (mg/dL) 178 H 214 H 247 H (70-110) mg/dL C-Reactive Protein (0.00-0.80) mg/dL 02/07/23 02/07/23 Range/Units 01:20 05:59 RBC (4.40-5.60) X 10*6/uL Hgb (13.0-17.0) d/dL Hct (39.6-50.0) % ESR (0-20) mm/Hr POC Glucose (mg/dL) 171 H 143 H (70-110) mg/dL C-Reactive Protein (0.00-0.80) mg/dL Microbiology - Last 24 Hours (Table) 02/05/23 15:30 Gram Stain - Preliminary Foot - Right Assessment and Plan Assessment: 1. Diabetic ulcer right foot concerning for osteomyelitis status post excisional debridement and wound VAC placement 2. Right great toe callus status post excisional debridement 3. Diabetes mellitus with peripheral neuropathy Plan: 1. Consistent carbohydrate diet 2. Consult to wound care clinic for continued local wound care 3. Continue recommendations from infectious disease 4. Patient will need outpatient wound care follow-up Thank you for this consultation, we will continue to follow. The impression and plan of care has been dictated as directed. Dr Burgess I performed a history and examination of this patient, discussed the same with the dictator. I agree with the dictator's note ,documented as a scribe. Any additional findings or plans will be noted.
[2023-02-07] MEDS: SODIUM CHLORIDE 0.9% 1,000 ML IV SCH (13:00)
--- NOTE | 2023-02-07 16:15 | PN ---
PROGRESS NOTE DATE OF SERVICE: 02/07/2023 SUBJECTIVE: This is a 58-year-old gentleman, who was admitted after right foot osteomyelitis and significant infection, underwent excisional debridement and deep cultures. Wound VAC is applied. No chest pain. No palpitation. OBJECTIVE: VITAL SIGNS: Pulse is 81, blood pressure n, respirations 17. CHEST: Clear to auscultation. CARDIOVASCULAR: S1 and S2. ABDOMEN: Soft. NERVOUS SYSTEM: Nonfocal. EXTREMITIES: Left foot status post surgery. LABORATORY DATA: Reviewed. ASSESSMENT: 1. Right foot osteomyelitis with diabetic foot with failure of outpatient treatment, status post debridement. 2. History of previous right foot osteomyelitis with prolonged intravenous antibiotic via PICC line. 3. Diabetes mellitus, type 2. 4. Hypertension. 5. Multiple medical issues. 6. History of methicillin-resistant Staphylococcus aureus. RECOMMENDATIONS: Recommend to continue current medications. Continue symptomatic treatment. Otherwise, at this time, I recommend to continue with antibiotics. Follow the cultures. The patient is also on cefepime and vancomycin. Prognosis is guarded. Further recommendations to follow. Obtain the cultures. Repeat labs. Closely follow with Surgery and Infectious Disease. MMODL / IJN: [id number] / [id number]
[2023-02-07 16:36] LABS: Glucose,Whole Blood 218 mg/dL (70-110)
--- NOTE | 2023-02-07 16:45 | P.PN ---
Subjective Progress Note Date: 02/07/23 Principal diagnosis: Right diabetic foot infection Osteomyelitis and bacteremia Patient is a 58-year-old male with a past medical history significant diabetes mellitus hypertension reflux history of osteomyelitis and diabetic foot infection recent completed a course of IV antibiotic for left foot tenosynovitis with MSSA bacteremia presenting to the office with increasing pain swelling redness to the right foot in this patient who did have a chronic ulcer on the plantar aspect of the right foot with more drainage, CT was suspicious for abscess and osteomyelitis. The patient is status post shop excisional surgical debridement and deep cultures on 02/06/2023. On today's evaluation that is 02/07/2023, the patient denies having any fever or any chills the patient is breathing comfortably no chest pain shortness of breath or cough no abdominal pain patient will have diabetic neuropathy denies significant pain to the right lower extremity. Patient did have a white count of 4.75 creatinine 1.1 blood cultures coming back positive with gram-positive cocci Objective - Vital Signs Vital signs: Vital Signs Temp 98.0 F 02/07/23 07:10 Pulse 81 02/07/23 07:10 Resp 18 02/07/23 07:10 BP 105/58 02/07/23 07:10 Pulse Ox 96 02/07/23 09:36 FiO2 Intake & Output 02/06/23 02/07/23 02/07/23 18:59 06:59 18:59 Intake Total 700 Output Total 5 Balance 695 Intake: IV 700 Output: Estimated Blood Loss 5 Other: # Voids 4 1 - Exam GENERAL DESCRIPTION: Middle-aged male lying in bed in no distress RESPIRATORY SYSTEM: Unlabored breathing , decreased breath sounds at bases HEART: S1 S2 regular rate and rhythm , ABDOMEN: Soft , no tenderness EXTREMITIES: Right foot is currently dressed in OR dressing - Labs CBC & Chem 7: 02/07/23 05:47 02/07/23 05:47 Labs: Abnormal Lab Results - Last 24 Hours (Table) 02/06/23 02/06/23 02/06/23 Range/Units 06:46 06:46 11:26 RBC (4.40-5.60) X 10*6/uL Hgb (13.0-17.0) d/dL Hct (39.6-50.0) % MPV (9.5-12.2) FL ESR 33 H (0-20) mm/Hr Glucose (70-110) mg/dL POC Glucose (mg/dL) 191 H (70-110) mg/dL C-Reactive Protein 4.60 H (0.00-0.80) mg/dL 02/06/23 02/06/23 02/06/23 Range/Units 15:23 17:22 20:35 RBC (4.40-5.60) X 10*6/uL Hgb (13.0-17.0) d/dL Hct (39.6-50.0) % MPV (9.5-12.2) FL ESR (0-20) mm/Hr Glucose (70-110) mg/dL POC Glucose (mg/dL) 178 H 214 H 247 H (70-110) mg/dL C-Reactive Protein (0.00-0.80) mg/dL 02/07/23 02/07/23 02/07/23 Range/Units 01:20 05:47 05:47 RBC 3.31 L (4.40-5.60) X 10*6/uL Hgb 9.9 L (13.0-17.0) d/dL Hct 29.2 L (39.6-50.0) % MPV 9.4 L (9.5-12.2) FL ESR (0-20) mm/Hr Glucose 125 H (70-110) mg/dL POC Glucose (mg/dL) 171 H (70-110) mg/dL C-Reactive Protein (0.00-0.80) mg/dL 02/07/23 02/07/23 Range/Units 05:59 11:02 RBC (4.40-5.60) X 10*6/uL Hgb (13.0-17.0) d/dL Hct (39.6-50.0) % MPV (9.5-12.2) FL ESR (0-20) mm/Hr Glucose (70-110) mg/dL POC Glucose (mg/dL) 143 H 170 H (70-110) mg/dL C-Reactive Protein (0.00-0.80) mg/dL Microbiology - Last 24 Hours (Table) 02/05/23 15:30 Gram Stain - Preliminary Foot - Right Assessment and Plan (1) Bacteremia Current Visit: Yes Status: Acute Code(s): R78.81 - BACTEREMIA SNOMED Code(s): 9169316 (2) Osteomyelitis of foot, right, acute Current Visit: Yes Status: Acute Code(s): M86.171 - OTHER ACUTE OSTEOMYELITIS, RIGHT ANKLE AND FOOT SNOMED Code(s): 2967620265168558 Plan: 1patient with extensive right diabetic foot infection concerning for underlying osteomyelitis with abnormal CT suspicious for an abscess we will need to cover for resistant gram-positive as well as gram-negative as the patient was recently on cefazolin followed by Keflex. 2-Patient with Levaquin and penicillin allergy admitted to the number of antibiotics safe to use. 3patient is status post I&D and deep culture which are currently pending. [id number] bacteremia source is likely right diabetic foot infection blood cultures will be repeated documented clearance of his bacteremia 4patient will continue patient vancomycin and cefepime while watching his c linical course and culture closely Dictation was produced using [employer] dictation software. please excuse any grammatical, word or spelling errors. Time with Patient: Less than 30
[2023-02-07 19:48] LABS: Glucose,Whole Blood 300 mg/dL (70-110)
[2023-02-07] MEDS: ATORVASTATIN 20 MG TAB PO SCH (21:22)
[2023-02-08] MEDS: SODIUM CHLORIDE 0.9% 1,000 ML IV SCH ×2 (00:31→13:48)
[2023-02-08] MEDS ORDERED: VANCOMYCIN TROUGH DUE 1 EACH MISC MISCELLANE ONE (05:00)
[2023-02-08 05:17] LABS: Glucose,Whole Blood 164 mg/dL (70-110)
[2023-02-08] MEDS: carvediloL 12.5 MG TAB PO SCH ×2 (06:18→17:02)
[2023-02-08] MEDS: VANCOMYCIN 2,000 MG in SODIUM CHLORIDE 0.9% 500 ML 500 ML IVPB SCH (06:18)
[2023-02-08] MEDS: HEPARIN SODIUM,PORCINE 5,000 UNIT/ML 1 ML VIAL SQ SCH ×2 (09:04→21:46)
[2023-02-08] MEDS: ASPIRIN 81 MG PO SCH (09:05)
[2023-02-08] MEDS: DAPAGLIFLOZIN PROPANEDIOL 10 MG TABLET PO SCH (09:05)
[2023-02-08] MEDS: metFORMIN 500 MG TAB PO SCH ×3 (09:05→21:46)
[2023-02-08] MEDS: CEFEPIME 2 GM in SODIUM CHLORIDE 0.9% 100 ML IVPB SCH ×2 (09:06→16:31)
[2023-02-08] MEDS: CLOPIDOGREL 75 MG TAB PO SCH (09:06)
[2023-02-08 09:13] LABS: BUN/Creat Ratio 12.18 Ratio (12.00-20.00); Blood Urea Nitrogen 13.4 mg/dL (9.0-27.0); Carbon Dioxide 21.2 mmol/L (21.6-31.8); Chloride 106 mmol/L (96-109); Glucose 139 mg/dL (70-110); Potassium 4.4 mmol/L (3.5-5.5); Sodium 139 mmol/L (135-145)
[2023-02-08] MEDS: FUROSEMIDE 40 MG TAB PO SCH (09:49)
[2023-02-08] MEDS: hydrALAZINE HCL 25 MG TAB PO SCH ×2 (09:49→21:46)
[2023-02-08] MEDS: LOSARTAN 50 MG TAB PO SCH (09:50)
[2023-02-08] MEDS: SPIRONOLACTONE 25 MG TAB PO SCH (09:50)
[2023-02-08 09:56] LABS: Basophils # (A) 0.03 X 10*3/uL (0.00-0.10); Basophils % (A) 0.7 %; Eosinophils # (A) 0.15 X 10*3/uL (0.04-0.35); Eosinophils % (A) 3.4 %; HCT 29.1 % (39.6-50.0); Lymphocytes # (A) 1.87 X 10*3/uL (0.90-5.00); Lymphocytes % (A) 42.9 %; MCHC 34.4 d/dL (32.0-37.0); MCV 87.4 FL (80.0-97.0); Mean Platelet Volume 9.5 FL (9.5-12.2); Monocytes # (A) 0.36 X 10*3/uL (0.20-1.00); Monocytes % (A) 8.3 %; NRBC Per 100 WBC 0 X 10*3/uL (0.00-0.01); Neutrophils # (A) 1.92 X 10*3/uL (1.80-7.70); Platelet Count 222 X 10*3/uL (140-440); RBC 3.33 X 10*6/uL (4.40-5.60); RDW 12.3 % (11.5-14.5); WBC 4.36 X 10*3/uL (4.50-10.00)
[2023-02-08 11:49] LABS: Glucose,Whole Blood 213 mg/dL (70-110)
[2023-02-08 16:34] LABS: Glucose,Whole Blood 231 mg/dL (70-110)
--- NOTE | 2023-02-08 17:48 | P.PN ---
Subjective Progress Note Date: 02/08/23 Principal diagnosis: Right diabetic foot infection Osteomyelitis and bacteremia Patient is a 58-year-old male with a past medical history significant diabetes mellitus hypertension reflux history of osteomyelitis and diabetic foot infection recent completed a course of IV antibiotic for left foot tenosynovitis with MSSA bacteremia presenting to the office with increasing pain swelling redness to the right foot in this patient who did have a chronic ulcer on the plantar aspect of the right foot with more drainage, CT was suspicious for abscess and osteomyelitis. The patient is status post shop excisional surgical debridement and deep cultures on 02/06/2023. On today's evaluation that is 02/08/2023, the patient remains to be afebrile, the patient is breathing comfortably, the patient denies chest pain shortness of breath or cough, no nausea no vomiting no abdominal pain and no diarrhea has been reported. Patient denies pain to the right foot wound area Patient did have a white count of 4.36 creatinine 1.1 blood cultures coming back positive with gram-positive cocci, ID sensitivities pending Objective - Vital Signs Vital signs: Vital Signs Temp 98.7 F 02/08/23 14:12 Pulse 77 02/08/23 14:12 Resp 18 02/08/23 14:12 BP 142/76 02/08/23 14:12 Pulse Ox 97 02/08/23 14:12 FiO2 Intake & Output 02/07/23 02/08/23 02/08/23 18:59 06:59 18:59 Other: Voiding Method Toilet Urinal # Voids 4 0 1 - Exam GENERAL DESCRIPTION: Middle-aged male lying in bed in no distress RESPIRATORY SYSTEM: Unlabored breathing , decreased breath sounds at bases HEART: S1 S2 regular rate and rhythm , ABDOMEN: Soft , no tenderness EXTREMITIES: Right foot is covered with a wound VAC - Labs CBC & Chem 7: 02/08/23 06:11 02/08/23 06:11 Labs: Abnormal Lab Results - Last 24 Hours (Table) 02/07/23 02/07/23 02/08/23 Range/Units 16:36 19:46 05:16 WBC (4.50-10.00) X 10*3/uL RBC (4.40-5.60) X 10*6/uL Hgb (13.0-17.0) d/dL Hct (39.6-50.0) % Carbon Dioxide (21.6-31.8) mmol/L Glucose (70-110) mg/dL POC Glucose (mg/dL) 218 H 300 H 164 H (70-110) mg/dL 02/08/23 02/08/23 02/08/23 Range/Units 06:11 06:11 11:48 WBC 4.36 L (4.50-10.00) X 10*3/uL RBC 3.33 L (4.40-5.60) X 10*6/uL Hgb 10.0 L (13.0-17.0) d/dL Hct 29.1 L (39.6-50.0) % Carbon Dioxide 21.2 L (21.6-31.8) mmol/L Glucose 139 H (70-110) mg/dL POC Glucose (mg/dL) 213 H (70-110) mg/dL Microbiology - Last 24 Hours (Table) 02/05/23 15:30 Blood Culture Gram Stain - Final Blood Blood Culture - Preliminary 02/05/23 15:30 Gram Stain - Final Foot - Right Wound Culture - Final 02/06/23 16:39 Gram Stain - Preliminary Foot - Right 02/05/23 15:45 Blood Culture - Preliminary Blood Assessment and Plan (1) Bacteremia Current Visit: Yes Status: Acute Code(s): R78.81 - BACTEREMIA SNOMED Code(s): 8383096 (2) Cellulitis of right foot Current Visit: No Status: Acute Priority: Medium Code(s): L03.115 - CELLULITIS OF RIGHT LOWER LIMB SNOMED Code(s): 367948007 (3) Diabetic foot ulcer Current Visit: No Status: Acute Code(s): E11.621 - TYPE 2 DIABETES MELLITUS WITH FOOT ULCER; L97.509 - NON-PRESSURE CHRONIC ULCER OTH PRT UNSP FOOT W UNSP SEVERITY SNOMED Code(s): 461978683 Plan: 1patient with extensive right diabetic foot infection concerning for underlying osteomyelitis with abnormal CT suspicious for an abscess we will need to cover for resistant gram-positive as well as gram-negative as the patient was recently on cefazolin followed by Keflex. 2-Patient with Levaquin and penicillin allergy that will limit the number of antibiotics safe to use. 3patient is status post I&D and deep culture which are currently pending. 4we will continue patient vancomycin and cefepime , while watching his clinical course and closely Dictation was produced using [employer] dictation software. please excuse any grammatical, word or spelling errors. Time with Patient: Less than 30
[2023-02-08 20:26] LABS: Glucose,Whole Blood 254 mg/dL (70-110)
--- NOTE | 2023-02-08 20:34 | PN ---
PROGRESS NOTE DATE OF SERVICE: 02/08/2023 SUBJECTIVE: This is a 58-year-old gentleman admitted with right foot osteomyelitis, had debridement and wound VAC placement. Final cultures are pending. OBJECTIVE: VITAL SIGNS: Pulse is 67, blood pressure 124/62, respirations 17. CHEST: Clear to auscultation. CARDIOVASCULAR: S1, S2. ABDOMEN: Soft. EXTREMITIES: Right foot status post wound VAC. LABORATORY DATA: Noted. ASSESSMENT: 1. Right foot osteomyelitis with diabetic foot with failure of outpatient treatment, status post debridement. 2. History of previous right foot osteomyelitis with prolonged intravenous antibiotic via PICC line. 3. Diabetes mellitus, type 2. 4. Hypertension. 5. Multiple medical issues. 6. History of methicillin-resistant Staphylococcus aureus. RECOMMENDATIONS: Recommend to continue current management and continue symptomatic treatment. Otherwise, at this time, I will recommend repeat labs. Closely follow. Further recommendations to follow. MMODL / IJN: [id number] /
[2023-02-08] MEDS: ATORVASTATIN 20 MG TAB PO SCH (21:46)
[2023-02-08] MEDS: VANCOMYCIN 1,750 MG in SODIUM CHLORIDE 0.9% 500 ML 500 ML IVPB SCH (21:46)
[2023-02-09] MEDS: CEFEPIME 2 GM in SODIUM CHLORIDE 0.9% 100 ML IVPB SCH ×3 (01:22→15:43)
[2023-02-09] MEDS: SODIUM CHLORIDE 0.9% 1,000 ML IV SCH ×2 (01:35→14:46)
[2023-02-09 06:10] LABS: Glucose,Whole Blood 154 mg/dL (70-110)
[2023-02-09] MEDS: carvediloL 12.5 MG TAB PO SCH ×2 (06:34→17:27)
[2023-02-09 07:56] LABS: Glucose,Whole Blood 154 mg/dL (70-110)
[2023-02-09] MEDS: metFORMIN 500 MG TAB PO SCH ×3 (09:00→20:51)
[2023-02-09] MEDS: ASPIRIN 81 MG PO SCH (09:01)
[2023-02-09] MEDS: VANCOMYCIN 1,750 MG in SODIUM CHLORIDE 0.9% 500 ML 500 ML IVPB SCH ×2 (09:01→20:52)
[2023-02-09] MEDS: DAPAGLIFLOZIN PROPANEDIOL 10 MG TABLET PO SCH (09:01)
[2023-02-09] MEDS: HEPARIN SODIUM,PORCINE 5,000 UNIT/ML 1 ML VIAL SQ SCH ×2 (09:01→20:51)
[2023-02-09] MEDS: CLOPIDOGREL 75 MG TAB PO SCH (09:01)
[2023-02-09 09:23] LABS: Basophils # (A) 0.02 X 10*3/uL (0.00-0.10); Basophils % (A) 0.4 %; Eosinophils # (A) 0.14 X 10*3/uL (0.04-0.35); Eosinophils % (A) 3.1 %; HCT 28.2 % (39.6-50.0); HGB 9.7 d/dL (13.0-17.0); Lymphocytes # (A) 2.05 X 10*3/uL (0.90-5.00); Lymphocytes % (A) 45.5 %; MCH 29.8 pg (27.0-32.0); MCHC 34.4 d/dL (32.0-37.0); MCV 86.8 FL (80.0-97.0); Mean Platelet Volume 9.5 FL (9.5-12.2); Monocytes # (A) 0.34 X 10*3/uL (0.20-1.00); Monocytes % (A) 7.5 %; NRBC Per 100 WBC 0 X 10*3/uL (0.00-0.01); Neutrophils # (A) 1.93 X 10*3/uL (1.80-7.70); Neutrophils % (A) 42.8 %; Platelet Count 180 X 10*3/uL (140-440); RBC 3.25 X 10*6/uL (4.40-5.60); RDW 12.3 % (11.5-14.5); WBC 4.51 X 10*3/uL (4.50-10.00)
[2023-02-09 09:45] LABS: African American GFR (CKD) >90 (>60 ml/min/1.73 sqM); Anion Gap 6 mmol/L; Blood Urea Nitrogen 12 mg/dL (9-20); Calcium 8.8 mg/dL (8.4-10.2); Carbon Dioxide 21 mmol/L (22-30); Chloride 110 mmol/L (98-107); Glucose 136 mg/dL (74-99); Non-African American GFR(CKD) >90 (>60 ml/min/1.73 sqM); Potassium 4.4 mmol/L (3.5-5.1); Sodium 137 mmol/L (137-145)
[2023-02-09] MEDS: FUROSEMIDE 40 MG TAB PO SCH (09:59)
[2023-02-09] MEDS: hydrALAZINE HCL 25 MG TAB PO SCH ×2 (09:59→20:51)
[2023-02-09] MEDS: LOSARTAN 50 MG TAB PO SCH (09:59)
[2023-02-09] MEDS: SPIRONOLACTONE 25 MG TAB PO SCH (09:59)
[2023-02-09 12:05] LABS: Glucose,Whole Blood 169 mg/dL (70-110)
[2023-02-09 17:26] LABS: Glucose,Whole Blood 243 mg/dL (70-110)
--- NOTE | 2023-02-09 17:43 | P.PN ---
Subjective Progress Note Date: 02/09/23 Principal diagnosis: Right diabetic foot infection Osteomyelitis and bacteremia Patient is a 58-year-old male with a past medical history significant diabetes mellitus hypertension reflux history of osteomyelitis and diabetic foot infection recent completed a course of IV antibiotic for left foot tenosynovitis with MSSA bacteremia presenting to the office with increasing pain swelling redness to the right foot in this patient who did have a chronic ulcer on the plantar aspect of the right foot with more drainage, CT was suspicious for abscess and osteomyelitis. The patient is status post shop excisional surgical debridement and deep cultures on 02/06/2023. On today's evaluation that is 02/09/2023, the patient continues to be afebrile, the patient is breathing comfortably and denies any shortness of breath no chest pain or cough, the patient denies having any nausea and vomiting no abdominal pain and no diarrhea Patient continued to deny pain to the right foot wound area Patient did have a white count of 4.51 creatinine is 0.94 blood cultures coming back positive with gram-positive cocci, ID sensitivities pending Objective - Vital Signs Vital signs: Vital Signs Temp 98.1 F 02/09/23 08:00 Pulse 68 02/09/23 08:00 Resp 18 02/09/23 08:00 BP 119/80 02/09/23 08:00 Pulse Ox 95 02/09/23 08:00 FiO2 Intake & Output 02/08/23 02/09/23 02/09/23 18:59 06:59 18:59 Other: # Voids 1 2 - Exam GENERAL DESCRIPTION: Middle-aged male lying in bed in no distress RESPIRATORY SYSTEM: Unlabored breathing , decreased breath sounds at bases HEART: S1 S2 regular rate and rhythm , ABDOMEN: Soft , no tenderness EXTREMITIES: Right foot is covered with a wound VAC - Labs CBC & Chem 7: 02/09/23 05:59 02/09/23 05:59 Labs: Abnormal Lab Results - Last 24 Hours (Table) 02/08/23 02/08/23 02/09/23 Range/Units 16:33 20:25 05:59 RBC (4.40-5.60) X 10*6/uL Hgb (13.0-17.0) d/dL Hct (39.6-50.0) % Chloride 110 H (98-107) mmol/L Carbon Dioxide 21 L (22-30) mmol/L Glucose 136 H (74-99) mg/dL POC Glucose (mg/dL) 231 H 254 H (70-110) mg/dL 02/09/23 02/09/23 02/09/23 Range/Units 05:59 06:08 07:53 RBC 3.25 L (4.40-5.60) X 10*6/uL Hgb 9.7 L (13.0-17.0) d/dL Hct 28.2 L (39.6-50.0) % Chloride (98-107) mmol/L Carbon Dioxide (22-30) mmol/L Glucose (74-99) mg/dL POC Glucose (mg/dL) 154 H 154 H (70-110) mg/dL 02/09/23 Range/Units 12:03 RBC (4.40-5.60) X 10*6/uL Hgb (13.0-17.0) d/dL Hct (39.6-50.0) % Chloride (98-107) mmol/L Carbon Dioxide (22-30) mmol/L Glucose (74-99) mg/dL POC Glucose (mg/dL) 169 H (70-110) mg/dL Microbiology - Last 24 Hours (Table) 02/08/23 06:11 Blood Culture - Preliminary Blood 02/05/23 15:45 Blood Culture - Preliminary Blood 02/05/23 15:30 Blood Culture Gram Stain - Final Blood Blood Culture - Preliminary 02/05/23 15:30 Gram Stain - Final Foot - Right Wound Culture - Final Assessment and Plan (1) Bacteremia Current Visit: Yes Status: Acute Code(s): R78.81 - BACTEREMIA SNOMED Code(s): 1414077 (2) Cellulitis of right foot Current Visit: No Status: Acute Priority: Medium Code(s): L03.115 - CELLULITIS OF RIGHT LOWER LIMB SNOMED Code(s): 924868819 (3) Diabetic foot ulcer Current Visit: No Status: Acute Code(s): E11.621 - TYPE 2 DIABETES MELLITUS WITH FOOT ULCER; L97.509 - NON-PRESSURE CHRONIC ULCER OTH PRT UNSP FOOT W UNSP SEVERITY SNOMED Code(s): 125234767 Plan: 1patient with extensive right diabetic foot infection concerning for underlying osteomyelitis with abnormal CT suspicious for an abscess we will need to cover for resistant gram-positive as well as gram-negative as the patient was recently on cefazolin followed by Keflex. 2-Patient with Levaquin and penicillin allergy that will limit the number of antibiotics safe to use. 3patient is status post I&D and deep culture which are currently pending. 4-patient to continue with the vancomycin therapy while While waiting for the cultures to finalize to determine his discharge antibiotics Dictation was produced using [employer] dictation software. please excuse any grammatical, word or spelling errors. Time with Patient: Less than 30
[2023-02-09] MEDS: ATORVASTATIN 20 MG TAB PO SCH (20:51)
[2023-02-09 21:58] LABS: Glucose,Whole Blood 181 mg/dL (70-110)
[2023-02-10] MEDS: CEFEPIME 2 GM in SODIUM CHLORIDE 0.9% 100 ML IVPB SCH ×2 (00:12→07:57)
--- NOTE | 2023-02-10 04:04 | PN ---
PROGRESS NOTE DATE OF SERVICE: 02/09/2023 SUBJECTIVE: This is a 58-year-old gentleman, who was admitted with right foot osteomyelitis and right diabetic foot, had surgery. The patient's wound VAC incision present. Final cultures are pending. OBJECTIVE: VITAL SIGNS: Pulse is 68, blood pressure 119/80, respirations 18. CHEST: Clear to auscultation. CARDIOVASCULAR: S1, S2. ABDOMEN: Soft. EXTREMITIES: Foot, status post surgery and wound VAC present. LABORATORY DATA: Reviewed. ASSESSMENT: 1. Right foot osteomyelitis with diabetic foot with failure of outpatient treatment, status post debridement and wound VAC placement. 2. History of previous right foot osteomyelitis with prolonged intravenous IV antibiotics through PICC line. 3. Diabetes mellitus, type 2. 4. Hypertension. 5. Multiple medical issues. 6. History of methicillin-resistant Staphylococcus aureus. RECOMMENDATIONS: Recommend to continue current management. Continue symptomatic treatment. Continue with antibiotics. The most recent cultures are negative. Closely follow with Infectious Disease and Vascular. Further recommendations to follow. MMODL / IJN: [id number] /
[2023-02-10] MEDS: SODIUM CHLORIDE 0.9% 1,000 ML IV SCH ×2 (05:07→23:46)
[2023-02-10] MEDS: carvediloL 12.5 MG TAB PO SCH ×2 (05:52→16:45)
[2023-02-10 06:16] LABS: Glucose,Whole Blood 122 mg/dL (70-110)
[2023-02-10 07:27] LABS: African American GFR (CKD) >90 (>60 ml/min/1.73 sqM); Non-African American GFR(CKD) >90 (>60 ml/min/1.73 sqM)
[2023-02-10] MEDS ORDERED: VANCOMYCIN TROUGH DUE 1 EACH MISC MISCELLANE ONE (08:00)
[2023-02-10] MEDS: FUROSEMIDE 40 MG TAB PO SCH (08:00)
[2023-02-10] MEDS: CLOPIDOGREL 75 MG TAB PO SCH (08:00)
[2023-02-10] MEDS: metFORMIN 500 MG TAB PO SCH ×3 (08:01→21:19)
[2023-02-10] MEDS: SPIRONOLACTONE 25 MG TAB PO SCH (08:01)
[2023-02-10] MEDS: HEPARIN SODIUM,PORCINE 5,000 UNIT/ML 1 ML VIAL SQ SCH ×2 (08:01→21:17)
[2023-02-10] MEDS: ASPIRIN 81 MG PO SCH (08:01)
[2023-02-10] MEDS: LOSARTAN 50 MG TAB PO SCH (08:01)
[2023-02-10] MEDS: hydrALAZINE HCL 25 MG TAB PO SCH ×2 (08:01→21:17)
[2023-02-10] MEDS: DAPAGLIFLOZIN PROPANEDIOL 10 MG TABLET PO SCH (08:01)
[2023-02-10] MEDS: VANCOMYCIN 1,750 MG in SODIUM CHLORIDE 0.9% 500 ML 500 ML IVPB SCH ×2 (09:27→21:17)
--- NOTE | 2023-02-10 10:41 | P.PN ---
Subjective Progress Note Date: 02/10/23 Principal diagnosis: Right foot wound Patient seen and examined today as a follow-up. He is postop day #4 for surgical debridement with wound VAC placement to the right plantar aspect of foot. He is without any complaints. He remains on IV antibiotics. Cultures came back as Staphylococcus epidermidis. Infectious disease following patient for antibiotic recommendations. Patient has been afebrile. Wound VAC was changed today. Objective - Vital Signs Vital signs: Vital Signs Temp 98.2 F 02/10/23 07:28 Pulse 59 L 02/10/23 07:28 Resp 16 02/10/23 07:28 BP 129/73 02/10/23 07:28 Pulse Ox 97 02/10/23 08:48 FiO2 Intake & Output 02/09/23 02/10/23 02/10/23 18:59 06:59 18:59 Other: # Voids 4 2 - Exam General appearance: The patient is alert, oriented, appears in no acute distress. HET: Head is normocephalic and atraumatic. Pupils are equal and reactive. Neck: Supple. Heart: Regular. Lungs: Equal expansion, normal respiratory effort. Abdomen: Soft, nontender, nondistended. Extremities: Right foot with wound VAC in place with good suction, dressing clean dry and intact. Neurological: No focal deficits. - Labs CBC & Chem 7: 02/09/23 05:59 02/10/23 06:48 Labs: Abnormal Lab Results - Last 24 Hours (Table) 02/09/23 02/09/23 02/09/23 Range/Units 12:03 17:25 21:57 POC Glucose (mg/dL) 169 H 243 H 181 H (70-110) mg/dL 02/10/23 Range/Units 06:15 POC Glucose (mg/dL) 122 H (70-110) mg/dL Microbiology - Last 24 Hours (Table) 02/06/23 16:39 Gram Stain - Final Foot - Right Tissue Culture - Final Staphylococcus epidermidis 02/08/23 06:11 Blood Culture - Preliminary Blood Assessment and Plan Assessment: 1. Diabetic ulcer right foot concerning for osteomyelitis status post excisional debridement and wound VAC placement 2. Right great toe callus status post excisional debridement 3. Diabetes mellitus with peripheral neuropathy Plan: 1. Consistent carbohydrate diet 2. Consult to wound care clinic for continued local wound care 3. Continue recommendations from infectious disease 4. Patient will need outpatient wound care follow-up Thank you for this consultation, patient is cleared for discharge from vascular surgery. The impression and plan of care has been dictated as directed. Dr Burgess I performed a history and examination of this patient, discussed the same with the dictator. I agree with the dictator's note ,documented as a scribe. Any additional findings or plans will be noted.
[2023-02-10 11:10] LABS: Glucose,Whole Blood 177 mg/dL (70-110)
--- NOTE | 2023-02-10 12:04 | P.PN ---
Subjective Progress Note Date: 02/10/23 Principal diagnosis: Right diabetic foot infection Osteomyelitis and bacteremia Patient is a 58-year-old male with a past medical history significant diabetes mellitus hypertension reflux history of osteomyelitis and diabetic foot infection recent completed a course of IV antibiotic for left foot tenosynovitis with MSSA bacteremia presenting to the office with increasing pain swelling redness to the right foot in this patient who did have a chronic ulcer on the plantar aspect of the right foot with more drainage, CT was suspicious for abscess and osteomyelitis. The patient is status post shop excisional surgical debridement and deep cultures on 02/06/2023. On today's evaluation that is 02/10/2023, the patient remains to be afebrile, the patient is breathing comfortably , the patient denies having any chest pain or cough, the patient denies nausea and vomiting no abdominal pain and no diarrhea, the patient denies pain to the right foot wound area, wound VAC was changed today by vascular Patient did have a white count of 4.51 as of yesterday, creatinine is 0.89, blood cultures coming back positive with gram-positive cocci, ID sensitivities pending, local culture positive with staph epi Objective - Vital Signs Vital signs: Vital Signs Temp 98.2 F 02/10/23 07:28 Pulse 59 L 02/10/23 07:28 Resp 16 02/10/23 07:28 BP 129/73 02/10/23 07:28 Pulse Ox 97 02/10/23 08:48 FiO2 Intake & Output 02/09/23 02/10/23 02/10/23 18:59 06:59 18:59 Other: # Voids 4 2 - Exam GENERAL DESCRIPTION: Middle-aged male lying in bed in no distress RESPIRATORY SYSTEM: Unlabored breathing , decreased breath sounds at bases HEART: S1 S2 regular rate and rhythm , ABDOMEN: Soft , no tenderness EXTREMITIES: Right foot is covered with a wound VAC, review of a picture taken at the time of dressing changes to his deep wound but no slough tissue - Labs CBC & Chem 7: 02/09/23 05:59 02/10/23 06:48 Labs: Abnormal Lab Results - Last 24 Hours (Table) 02/09/23 02/09/23 02/09/23 Range/Units 12:03 17:25 21:57 POC Glucose (mg/dL) 169 H 243 H 181 H (70-110) mg/dL 02/10/23 Range/Units 06:15 POC Glucose (mg/dL) 122 H (70-110) mg/dL Microbiology - Last 24 Hours (Table) 02/06/23 16:39 Gram Stain - Final Foot - Right Tissue Culture - Final Staphylococcus epidermidis 02/08/23 06:11 Blood Culture - Preliminary Blood Assessment and Plan (1) Bacteremia Current Visit: Yes Status: Acute Code(s): R78.81 - BACTEREMIA SNOMED Code(s): 7959542 (2) Cellulitis of right foot Current Visit: No Status: Acute Priority: Medium Code(s): L03.115 - CELLULITIS OF RIGHT LOWER LIMB SNOMED Code(s): 439405735 (3) Diabetic foot ulcer Current Visit: No Status: Acute Code(s): E11.621 - TYPE 2 DIABETES MELLITUS WITH FOOT ULCER; L97.509 - NON-PRESSURE CHRONIC ULCER OTH PRT UNSP FOOT W UNSP SEVERITY SNOMED Code(s): 163718084 Plan: 1patient with extensive right diabetic foot infection concerning for underlying osteomyelitis with abnormal CT suspicious for an abscess we will need to cover for resistant gram-positive as well as gram-negative as the patient was recently on cefazolin followed by Keflex. 2-patient is status post I&D and deep culture which are currently growing oxacillin resistant staph epi, repeat blood culture so far negative 4-patient to continue with the vancomycin , waiting for the final on the blood cultures plan is for IV antibiotic on discharge for the patient did get a PICC line Dictation was produced using [employer] dictation software. please excuse any grammatical, word or spelling errors.
[2023-02-10 13:00] LABS: INR 1.1 (<1.2); Prothrombin Time 11.2 sec (9.0-12.0)
[2023-02-10 16:11] LABS: Glucose,Whole Blood 185 mg/dL (70-110)
--- NOTE | 2023-02-10 16:30 | P.PN ---
Subjective Progress Note Date: 02/10/23 This is a pleasant 58-year-old male who was recently admitted with right foot osteomyelitis and right diabetic foot ulcer underwent surgical incision and drainage with debridement and deep tissue cultures. Patient does continue with wound VAC and arranging for outpatient home care and infectious disease following. Awaiting repeat finalized cultures to determine discharge antibiotics. Notified [facility] of pending cultures and was reported as Micrococcus species and most recent blood cultures are negative. Patient will receive a PICC line and have outpatient antibiotic therapies in the form of vancomycin along with oral Flagyl. Patient is afebrile with no reports of chest pain or shortness of breath. Patient tolerating diet with no reported nausea or vomiting. Social work is following and arranging for discharge planning along with verification of antibiotic coverage. Review of systems: Constitutional: No reports of fatigue, fever, or chills Cardiovascular: No reports of chest pain or palpitations Respiratory: No reports of shortness of breath or cough GI: No reports of nausea, no reports of vomiting, no diarrhea : No reports of dysuria or retention Neurovascular: reports of generalized weakness All medications have been reviewed PHYSICAL EXAMINATION: GENERAL: The patient is alert and oriented x4, Well developed, well nourished. Obese HEENT: Pupils are round and equally reacting to light. EOMI. no scleral icterus. No conjunctival pallor. Normocephalic, atraumatic. No pharyngeal erythema. No thyromegaly. CARDIOVASCULAR: S1 and S2 muffled PULMONARY: diminished breath sounds bilaterally with no wheezing or rhonchi noted. ABDOMEN: soft. Nontender on exam. obese. non-distended, normoactive bowel sounds. No palpable organomegaly. MUSCULOSKELETAL: No joint swelling or deformity. EXTREMITIES: No cyanosis, clubbing, or pedal edema. NEUROLOGICAL: Gross neurological examination did not reveal any focal deficits. Diffuse weakness SKIN: No rashes. Assessment: Right foot osteomyelitis with diabetic foot with failure of outpatient treatment, status post surgical debridement and wound VAC placement History of previous right foot osteomyelitis with prolonged IV antibiotic therapy with a PICC line Diabetes mellitus, type II history Hypertension history GERD History of MRSA Obesity with a BMI of 30.1 GI prophylaxis DVT prophylaxis Full code Plan: Patient is continued on IV antibiotics in the form of vancomycin with infectious disease following. Cefepime being discontinued and patient will continue on vancomycin along with oral Flagyl for 6 weeks course. PICC line ordered and pending at this time. Social work following arranging for discharge planning including antibiotic coverage and Homecare as patient continues with wound VAC Continue to monitor Accu-Cheks before meals and at bedtime and will continue current regimen Will follow-up with social work once PICC line is placed and arrange for discharge planning and the possible next 24-48 hours The impression and plan of care has been dictated by Alexandria Shoemaker, nurse pr actitioner as directed. Dr. Fani MD I have performed a history and examination and MDM of this patient, discussed the same with the dictator, and agree with the dictator's assessment and plan as written ,documented as a scribe. Based on total visit time, I have performed more than 50% of the visit. Any additional findings or plans will be noted. Objective - Vital Signs Vital signs: Vital Signs Temp 98.2 F 02/10/23 07:28 Pulse 59 L 02/10/23 07:28 Resp 16 02/10/23 07:28 BP 129/73 02/10/23 07:28 Pulse Ox 97 02/10/23 08:48 FiO2 Intake & Output 02/09/23 02/10/23 02/10/23 18:59 06:59 18:59 Other: # Voids 4 2 - Labs CBC & Chem 7: 02/09/23 05:59 02/10/23 06:48 Labs: Abnormal Lab Results - Last 24 Hours (Table) 02/09/23 02/09/23 02/10/23 Range/Units 17:25 21:57 06:15 POC Glucose (mg/dL) 243 H 181 H 122 H (70-110) mg/dL 02/10/23 Range/Units 11:08 POC Glucose (mg/dL) 177 H (70-110) mg/dL Microbiology - Last 24 Hours (Table) 02/06/23 16:39 Gram Stain - Final Foot - Right Tissue Culture - Final Staphylococcus epidermidis 02/08/23 06:11 Blood Culture - Preliminary Blood
[2023-02-10] MEDS: metroNIDAZOLE 500 MG TAB PO SCH ×2 (16:45→21:17)
[2023-02-10 20:37] LABS: Glucose,Whole Blood 198 mg/dL (70-110)
[2023-02-10] MEDS: ATORVASTATIN 20 MG TAB PO SCH (21:17)
[2023-02-10] MEDS: ACETAMINOPHEN TAB 325 MG TAB PO PRN (22:57)
[2023-02-11 06:07] LABS: Glucose,Whole Blood 137 mg/dL (70-110)
[2023-02-11] MEDS: carvediloL 12.5 MG TAB PO SCH (06:49)
[2023-02-11] MEDS: ACETAMINOPHEN TAB 325 MG TAB PO PRN (06:49)
[2023-02-11] MEDS: SODIUM CHLORIDE 0.9% 1,000 ML IV SCH (08:13)
[2023-02-11] MEDS: LOSARTAN 50 MG TAB PO SCH (10:30)
[2023-02-11] MEDS ORDERED: LIDOCAINE 1% INJ 10MG/ML (20 ML MDV) ONE (10:32)
[2023-02-11] MEDS: metroNIDAZOLE 500 MG TAB PO SCH (10:33)
[2023-02-11] MEDS: CLOPIDOGREL 75 MG TAB PO SCH (10:33)
[2023-02-11] MEDS: HEPARIN SODIUM,PORCINE 5,000 UNIT/ML 1 ML VIAL SQ SCH (10:33)
[2023-02-11] MEDS: DAPAGLIFLOZIN PROPANEDIOL 10 MG TABLET PO SCH (10:34)
[2023-02-11] MEDS: ASPIRIN 81 MG PO SCH (10:34)
[2023-02-11] MEDS: SPIRONOLACTONE 25 MG TAB PO SCH (10:34)
[2023-02-11] MEDS: FUROSEMIDE 40 MG TAB PO SCH (10:34)
[2023-02-11] MEDS: hydrALAZINE HCL 25 MG TAB PO SCH (10:35)
[2023-02-11] MEDS ORDERED: LIDOCAINE 1% INJ 10MG/ML (5 ML VIAL-PF) SQ ONE (10:57)
[2023-02-11] MEDS: metFORMIN 500 MG TAB PO SCH (11:00)
--- NOTE | 2023-02-11 11:00 | P.PN ---
Subjective Progress Note Date: 02/11/23 Principal diagnosis: Right foot wound Patient seen and examined his follow-up. No complaints at this time. No acute changes through the night. He is awaiting PICC line placement today. Wound VAC in place with good suction. Objective - Vital Signs Vital signs: Vital Signs Temp 98.0 F 02/11/23 09:09 Pulse 87 02/11/23 09:09 Resp 17 02/11/23 09:09 BP 128/73 02/11/23 09:09 Pulse Ox 97 02/11/23 09:09 FiO2 Intake & Output 02/10/23 02/11/23 02/11/23 18:59 06:59 18:59 Intake Total 240 1130 Output Total 900 Balance 240 230 Weight 121.109 kg Intake: Intake, IV Titration 650 Amount Sodium Chloride 0.9% 1, 150 000 ml @ 75 mls/hr IV . [id number] [facility] Rx#:[id number] Vancomycin 1,750 mg In 500 Sodium Chloride 0.9% 500 ml 500 ml @ 167 mls/hr IVPB Q12H [facility] Rx#: [id number] Oral 240 480 Output: Urine 900 Other: # Voids 3 2 # Bowel Movements 0 - Exam General appearance: The patient is alert, oriented, appears in no acute distress. HET: Head is normocephalic and atraumatic. Pupils are equal and reactive. Neck: Supple. Heart: Regular. Lungs: Equal expansion, normal respiratory effort. Abdomen: Soft, nontender, nondistended. Extremities: Right foot with wound VAC in place with good suction, dressing clean dry and intact. Neurological: No focal deficits. - Labs CBC & Chem 7: 02/09/23 05:59 02/10/23 06:48 Labs: Abnormal Lab Results - Last 24 Hours (Table) 02/10/23 02/10/23 02/10/23 Range/Units 11:08 16:10 20:36 POC Glucose (mg/dL) 177 H 185 H 198 H (70-110) mg/dL 02/11/23 Range/Units 06:04 POC Glucose (mg/dL) 137 H (70-110) mg/dL Microbiology - Last 24 Hours (Table) 02/05/23 15:45 Blood Culture - Final Blood 02/08/23 06:11 Blood Culture - Preliminary Blood Assessment and Plan Assessment: 1. Diabetic ulcer right foot concerning for osteomyelitis status post excisional debridement and wound VAC placement 2. Right great toe callus status post excisional debridement 3. Diabetes mellitus with peripheral neuropathy Plan: 1. Consistent carbohydrate diet 2. Consult to wound care clinic for continued local wound care 3. Continue recommendations from infectious disease 4. Patient will need outpatient wound care follow-up Thank you for this consultation, patient is cleared for discharge from vascular surgery. The impression and plan of care has been dictated as directed. Dr Burgess I performed a history and examination of this patient, discussed the same with the dictator. I agree with the dictator's note ,documented as a scribe. Any additional findings or plans will be noted.
[2023-02-11 11:20] LABS: Glucose,Whole Blood 220 mg/dL (70-110)
[2023-02-11] MEDS: VANCOMYCIN 1,750 MG in SODIUM CHLORIDE 0.9% 500 ML 500 ML IVPB SCH (11:23)
--- NOTE | 2023-02-11 12:51 | IR ---
PICC LINE PLACEMENT: HISTORY: Infection requiring long-term antibiotic therapy PROCEDURE: Ultrasound and fluoroscopic guidance of PICC line placement. COMPLICATIONS: None ANESTHESIA: 1. 1% Lidocaine locally. FINDINGS/TECHNIQUE: The procedure was explained to the patient. The risks, complications, benefits and alternatives were discussed and any questions were answered. Informed consent was obtained. The patient was placed supine on the fluoroscopic table and prepped and draped in the usual sterile fash ion. Utilizing a 21 gauge needle and sonographic and fluoroscopic guidance, access in the left ceph alic vein was achieved and there is placement of a 0.018 guidewire. The vein is patent. A 4-F sheat h was placed over the guidewire. The guidewire and dilator were removed and a 4-F. PICC line was gela jovita through the sheath with the tip at the level of the SVC. The sheath was removed, the catheter wa s flushed and sutured into position. The patient was stable throughout the procedure and remained st able upon discharge from the Department of Radiology. The vein puncture was patent under ultrasound. A hurt scale image was obtained to document patency of the vein punctured. All elements of the maximal barrier technique were utilized. FLUOROSCOPY TIME: DAP 0.127Gy cm2 IMPRESSION: Successful PICC line placement under ultrasound and fluoroscopic guidance.
[2023-02-11 14:15] VITALS: BP 112/67; PULSE 61; RESP 18; TEMP 97.7
--- NOTE | 2023-02-11 16:55 | P.PN ---
Subjective Progress Note Date: 02/11/23 Principal diagnosis: Right diabetic foot infection Osteomyelitis and bacteremia Patient is a 58-year-old male with a past medical history significant diabetes mellitus hypertension reflux history of osteomyelitis and diabetic foot infection recent completed a course of IV antibiotic for left foot tenosynovitis with MSSA bacteremia presenting to the office with increasing pain swelling redness to the right foot in this patient who did have a chronic ulcer on the plantar aspect of the right foot with more drainage, CT was suspicious for abscess and osteomyelitis. The patient is status post shop excisional surgical debridement and deep cultures on 02/06/2023. On today's evaluation that is 02/11/2023, the patient denies any fever or any chills, the patient is breathing comfortably , the patient denies chest pain or cough, the patient denies nausea and vomiting no abdominal pain and no diarrhea has been reported, the patient denies pain to the right foot wound area, no new symptoms Patient did have a white count of 4.51 as of 02/09/2023, creatinine is 0.89 as of 02/10/2023, blood cultures coming back positive with micrococcus likely contamination to be blood culture negative, local culture positive with staph epi Objective - Vital Signs Vital signs: Vital Signs Temp 97.7 F 02/11/23 13:32 Pulse 61 02/11/23 13:32 Resp 18 02/11/23 13:32 BP 112/67 02/11/23 13:32 Pulse Ox 99 02/11/23 13:32 FiO2 Intake & Output 02/10/23 02/11/23 02/11/23 18:59 06:59 18:59 Intake Total 240 1130 Output Total 900 Balance 240 230 Weight 121.109 kg Intake: Intake, IV Titration 650 Amount Sodium Chloride 0.9% 1, 150 000 ml @ 75 mls/hr IV . [id number] [facility] Rx#:[id number] Vancomycin 1,750 mg In 500 Sodium Chloride 0.9% 500 ml 500 ml @ 167 mls/hr IVPB Q12H [facility] Rx#: [id number] Oral 240 480 Output: Urine 900 Other: # Voids 3 2 # Bowel Movements 0 - Exam GENERAL DESCRIPTION: Middle-aged male lying in bed in no distress RESPIRATORY SYSTEM: Unlabored breathing , decreased breath sounds at bases HEART: S1 S2 regular rate and rhythm , ABDOMEN: Soft , no tenderness EXTREMITIES: Right foot is covered with a wound VAC, review of a picture taken at the time of dressing changes to his deep wound but no slough tissue - Labs CBC & Chem 7: 02/09/23 05:59 02/10/23 06:48 Labs: Abnormal Lab Results - Last 24 Hours (Table) 02/10/23 02/11/23 02/11/23 Range/Units 20:36 06:04 11:19 POC Glucose (mg/dL) 198 H 137 H 220 H (70-110) mg/dL Microbiology - Last 24 Hours (Table) 02/08/23 06:11 Blood Culture - Preliminary Blood 02/05/23 15:45 Blood Culture - Final Blood Assessment and Plan (1) Bacteremia Status: Acute Code(s): R78.81 - BACTEREMIA SNOMED Code(s): 8062849 (2) Cellulitis of right foot Status: Acute Priority: Medium Code(s): L03.115 - CELLULITIS OF RIGHT LOWER LIMB SNOMED Code(s): 764492653 (3) Diabetic foot ulcer Status: Acute Code(s): E11.621 - TYPE 2 DIABETES MELLITUS WITH FOOT ULCER; L97.509 - NON-PRESSURE CHRONIC ULCER OTH PRT UNSP FOOT W UNSP SEVERITY SNOMED Code(s): 474928560 Plan: 1patient with extensive right diabetic foot infection concerning for underlying osteomyelitis with abnormal CT suspicious for an abscess we will need to cover for resistant gram-positive as well as gram-negative as the patient was recently on cefazolin followed by Keflex. 2-patient is status post I&D and deep culture which are currently growing oxacillin resistant staph epi, repeat blood culture so far negative Plan is to continue with the vancomycin for Dominique to dose with a target trough of 15 along with oral Flagyl 6 weeks with close out patient follow-up Dictation was produced using [employer] dictation software. please excuse any grammatical, word or spelling errors. Time with Patient: Less than 30
--- NOTE | 2023-02-13 17:53 | CDI ---
Documentation Clarification Form Date: 02/13/2023 05:07:00 PM From: Emmy Guevara RN, CCDS Email: [email or web address] Admit Date: 02/05/2023 06:40:00 PM Patient Name: Kelby Mckee Visit Number: [id number] Discharge Date: 02/11/2023 03:41:00 PM ATTENTION: The Clinical Documentation Specialists (CDI) and [facility] Coding Staff appreciate your assistance in clarifying documentation. Please respond to the clarification below the line at the bottom and electronically sign. The CDI & [facility] Coding staff will review the response and follow-up if needed. Please note: Queries are made part of the Legal Health Record. If you have any questions, please contact the author of this message via ITS. Dr. Aletha Heard The patient had necrosis and nonhealing wound to right foot along with abnormal imaging. Clarification is requested. 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 Patient presents with nonhealing wound and ongoing infection. Clinical Indicators: 02/05 CT right foot: Irregular lucencies involving the right third metatarsal head, concerning for osteomyelitis. Soft tissue swelling, most prominently involving the right forefoot with wound along the plantar aspect of the right forefoot near the second and third MTP joints. Increased soft tissue density and gas about the right second and third MTP joints with effusion or abscess surrounding the right third metatarsal head. H&P: "Right foot osteomyelitis and diabetic foot with failure of outpatient treatment." 02/06 Surgical consult: "Increased soft tissue density and gas about the right second and third MTP joints with effusion or abscess surrounding the right third metatarsal head. Plan for surgical debridement and deep tissue cultures later today." 02/06 Op note: "He presented for nonhealing wound and an ongoing infection therefore imaging was taken showing fluid with areas of gas formation in the foot at the level close to the ulceration." 02/07 Dr. 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 Sharp excisional debridement great toe wound 1.0 x 1.0 x 0.2 cm to subcutaneous tissue. IV Vancomycin 2000mg Q12H 02/05-02/08; IV Vancomycin 1750mg Q12H 02/08-02/11; IV Cefepime 2gm Q8H 02/05-02/10; Flagyl 500mg po TID 02/10-02/11; 1L 0.9 NS IV bolus on 02/07 After work up and study can you clarify if there is an additional diagnosis: [ NO ] Gas gangrene [ ] Other, please specify [ ] Unable to determine MTDD
--- NOTE | 2023-02-13 20:21 | P.DS ---
Providers Date of admission: 02/05/23 18:40 Expected date of discharge: 02/11/23 Attending physician: Cleve Davidson MD Consults: 02/05/23 18:40 Consult Physician Urgent Consulting Provider: Clarence Tavares Consult Reason/Comments: Osteomyelitis foot Do you want consulting provider notified?: Yes 02/05/23 22:47 Consult Physician Urgent Consulting Provider: Aletha Heard Consult Reason/Comments: r foot abscess for I&D and deep cultures Do you want consulting provider notified?: Yes Primary care physician: Jocelynn Castle Hospital Course: Final diagnosis Right foot osteomyelitis with diabetic foot with failure of outpatient treatment, status post surgical debridement and wound VAC placement, cultures showing enterococcus History of previous right foot osteomyelitis with prolonged IV antibiotic therapy with a PICC line Diabetes mellitus, type II history Hypertension history GERD History of MRSA Obesity with a BMI of 30.1 GI prophylaxis DVT prophylaxis Full code Discharge disposition Patient is being discharged in a stable condition with guarded prognosis to home with wound care along with home care. Patient will follow-up with Dr. Cabezas in the outpatient setting upon discharge. Patient is to continue with the wound care center follow-up along with vascular surgery follow-up as scheduled. Patient has received a PICC line and will continue on IV Vanco with pharmacy to dose and close outpatient follow-up with infectious disease. Total time taken is greater than 35 minutes. Hospital course This is a 58-year-old male who was recently admitted with right foot diabetic ulcers with failure of outpatient treatment showing right foot osteomyelitis and is status post surgical debridement with wound VAC placement. Cultures finalized showing enterococcus and infectious disease along with vascular surgery following closely. Patient did receive a PICC line and will continue on IV antibiotics in the form of vancomycin with pharmacy to dose. Patient is going home with home care and will follow-up at the wound care center as well. Patient has been cleared by consultations for discharge today. Please refer to other consultation notes for further HPI. Currently no reports of chest pain, shortness of breath, or palpitations. Patient is afebrile. No reports of nausea or vomiting and patient is tolerating diet. Patient will be discharged home today. Guarded prognosis Physical exam: Gen: This is a 58-year-old male who is awake, alert and oriented 3, well- developed, well-nourished, obese HEENT: Head is atraumatic, normocephalic. Pupils equal, round. Sclerae is anicteric. NECK: Supple. No JVD. No lymphadenopathy. No thyromegaly. LUNGS: Clear to auscultation. No wheezes or rhonchi. No intercostal retractions. HEART: Regular rate and rhythm. No murmur. ABDOMEN: Soft. Obese. Bowel sounds are present. No masses. No tenderness. EXTREMITIES: No pedal edema. No calf tenderness. Right foot surgical dressing is dry and intact and wound VAC in place NEUROLOGICAL: Patient is awake, alert and oriented x3. Cranial nerves 2 through 12 are grossly intact. Please refer to medication reconciliation sheet for a list of medications. The impression and plan of care has been dictated by Alexandria Shoemaker, Nurse Practitioner as directed. Dr. Fani MD I have performed a history and examination and MDM of this patient, discussed the same with the dictator, and agree with the dictator's assessment and plan as written ,documented as a scribe. Based on total visit time, I have performed more than 50% of the visit. Patient Condition at Discharge: Stable Plan - Discharge Summary Discharge Rx Participant: Yes New Discharge Prescriptions: New Vancomycin 1,750 mg IVPB Q12H #84 each metroNIDAZOLE [Flagyl] 500 mg PO TID 42 Days #126 tab Acetaminophen Tab [Tylenol] 650 mg PO Q6HR PRN tab PRN Reason: Fever and/ or Mild Pain Continue metFORMIN HCL [Glucophage] 1,000 mg PO BID Olmesartan [Benicar] 20 mg PO DAILY metFORMIN HCL [Glucophage] 500 mg PO DAILY@1700 hydrALAZINE HCL [Apresoline] 25 mg PO BID #90 tab Atorvastatin [Lipitor] 20 mg PO HS #30 tab Clopidogrel [Plavix] 75 mg PO DAILY #30 tab Dapagliflozin Propanediol [Farxiga] 10 mg PO DAILY #30 tab Spironolactone [Aldactone] 25 mg PO DAILY #30 tab Aspirin 81 mg PO DAILY #30 tab carvediloL [Coreg] 25 mg PO BID Furosemide [Lasix] 40 mg PO DAILY Discontinued Cephalexin [Keflex] 500 mg PO Q8HR Discharge Medication List Olmesartan [Benicar] 20 mg PO DAILY 02/17/15 [History] metFORMIN HCL [Glucophage] 1,000 mg PO BID 02/17/15 [History] metFORMIN HCL [Glucophage] 500 mg PO DAILY@1700 12/01/22 [History] Dapagliflozin Propanediol [Farxiga] 10 mg PO DAILY #30 tab 12/10/22 [Rx] Aspirin 81 mg PO DAILY #30 tab 12/11/22 [Rx] Atorvastatin [Lipitor] 20 mg PO HS #30 tab 12/11/22 [Rx] Clopidogrel [Plavix] 75 mg PO DAILY #30 tab 12/11/22 [Rx] Spironolactone [Aldactone] 25 mg PO DAILY #30 tab 12/11/22 [Rx] hydrALAZINE HCL [Apresoline] 25 mg PO BID #90 tab 12/11/22 [Rx] Furosemide [Lasix] 40 mg PO DAILY 02/05/23 [History] carvediloL [Coreg] 25 mg PO BID 02/05/23 [History] Acetaminophen Tab [Tylenol] 650 mg PO Q6HR PRN tab 02/11/23 [Rx] Vancomycin 1,750 mg IVPB Q12H #84 each 02/11/23 [Rx] metroNIDAZOLE [Flagyl] 500 mg PO TID 42 Days #126 tab 02/11/23 [Rx] Follow up Appointment(s)/Referral(s): Corrine Cabezas MD [Primary Care Provider] - 02/14/23 8:30 am Aletha Heard DO [STAFF PHYSICIAN] - 3 Weeks (office closed at time of discharge. Please call to schedule appointment ) [facility], [NON-STAFF] - 1 Week ([facility] will call you to arrange a visit) [facility] [NON-STAFF] - 1 Week ([facility] will supply your infusion and will deliver. ) Clarence Tavares MD [STAFF PHYSICIAN] - 03/05/23 2:00 pm (Mar 24 @ 0108) Patient Instructions/Handouts: Osteomyelitis (DC), How to Care for Your PICC (Peripherally Inserted Central Catheter) (DC) Activity/Diet/Wound Care/Special Instructions: Activity Limited until follow-up Follow-up with primary care provider on discharge Follow-up with infectious disease outpatient Follow-up vascular surgery outpatient Continue taking medications as prescribed Discharge Disposition: HOME WITH HOME HEALTH SERVICES
== END 2023-02-11 15:41 | disposition home health service (06) | DRG 623 ==
LOC: EC 14:25 → 4SSUR 18:40
PROVIDERS: ADMIT Internal Medicine; ATTEND Internal Medicine
PROC: 0JBQ0ZZ Excision of Right Foot Subcutaneous Tissue and Fascia, Open Approach (ICD-10-PCS; principal; 2023-02-06 13:55)
PROC: 0QBL0ZZ Excision of Right Tarsal, Open Approach (ICD-10-PCS; principal; 2023-02-06 13:55)
PROC: 02HV33Z Insertion of Infusion Device into Superior Vena Cava, Percutaneous Approach (ICD-10-PCS; 2023-02-11)
DX: E11.69 Type 2 diabetes mellitus with other specified complication (principal); L03.115 Cellulitis of right lower limb; M86.171 Other acute osteomyelitis, right ankle and foot; R78.81 Bacteremia; E11.628 Type 2 diabetes mellitus with other skin complications; E11.621 Type 2 diabetes mellitus with foot ulcer; B95.61 Methicillin susceptible Staphylococcus aureus infection as the cause of diseases classified elsewhere; E11.42 Type 2 diabetes mellitus with diabetic polyneuropathy; E66.9 Obesity, unspecified; Z68.30 Body mass index [BMI] 30.0-30.9, adult; I10 Essential (primary) hypertension; K21.9 Gastro-esophageal reflux disease without esophagitis; L84 Corns and callosities; L98.494 Non-pressure chronic ulcer of skin of other sites with necrosis of bone; Z66 Do not resuscitate; Z79.02 Long term (current) use of antithrombotics/antiplatelets; Z79.2 Long term (current) use of antibiotics; Z79.84 Long term (current) use of oral hypoglycemic drugs; Z79.82 Long term (current) use of aspirin; Z79.899 Other long term (current) drug therapy; Z86.14 Personal history of Methicillin resistant Staphylococcus aureus infection; Z88.1 Allergy status to other antibiotic agents; Z88.0 Allergy status to penicillin; Z28.311 Partially vaccinated for COVID-19; Z28.21 Immunization not carried out because of patient refusal
CPT/HCPCS: 36415; 36573; 80048; 80053; 80202; 82565; 83605; 85025; 85610; 85652; 86140; 87040; 87070; 87075; 87077; 87186; 87205; 94760; 96365; 96366; 96368; 99285

== ENCOUNTER 2023-04-28 17:02 | Inpatient (IN) | payer BC ==
[2023-04-28] MEDS ORDERED: CEFEPIME 2 GM in SODIUM CHLORIDE 0.9% 100 ML IVPB STA (17:15)
[2023-04-28] MEDS ORDERED: VANCOMYCIN IV PER PHARMACY 1 EACH MISC MISCELLANE PRN (17:16)
[2023-04-28] MEDS ORDERED: VANCOMYCIN 2,000 MG in SODIUM CHLORIDE 0.9% 500 ML 500 ML IVPB STA (17:31)
[2023-04-28] MEDS ORDERED: IBUPROFEN 600 MG TAB PO STA (17:48)
[2023-04-28] MEDS ORDERED: ACETAMINOPHEN TAB 500 MG TAB PO STA (17:48)
--- NOTE | 2023-04-28 17:59 | XR ---
EXAMINATION TYPE: XR foot complete RT DATE OF EXAM: 04/28/2023 5:37 PM CLINICAL INDICATION:Male, 58 years old with history of Ulcer; [facility] COMPARISON: 02/05/2023. TECHNIQUE: XR foot complete RT examined in the AP, oblique, and lateral projections. FINDINGS: No evidence of fracture subluxation. There is redemonstration of dislocation at the right second MTP joint. \ Similar indication change of the right third digit at the MTP joint with increased lucency around the surgical bed. Mild degenerative change of the right first MTP joint and interphalangeal joint. Small posterior calc aneal spur. Soft tissues: Soft tissue swelling, most prominently in the forefoot. Wound in the planta r aspect of the right forefoot. No radiopaque foreign body identified. Atherosclerosis of the arterial vascular. IMPRESSION: 1. Suspected osteomyelitis changes of the surgical bed of the third digit metatarsal head. 2. Similar Subluxation or dislocation at the right second MTP joint. 3. Similar tissue swelling, most prominently in the forefoot. Wound in the plantar aspect of the rig ht forefoot.
[2023-04-28 18:16] LABS: Basophils % (A) 1 %; Eosinophils % (A) 1 %; HCT 34.1 % (39.0-53.0); HGB 12.1 gm/dL (13.0-17.5); Lymphocytes % (A) 13 %; MCH 31.2 pg (25.0-35.0); MCHC 35.6 g/dL (31.0-37.0); MCV 87.8 fL (80.0-100.0); Mean Platelet Volume 7.5; Monocytes # (A) 0.4 k/uL (0-1.0); Monocytes % (A) 5 %; Neutrophils # (A) 5.9 k/uL (1.3-7.7); Neutrophils % (A) 79 %; Platelet Count 177 k/uL (150-450); RBC 3.89 m/uL (4.30-5.90); RDW 13.4 % (11.5-15.5); WBC 7.4 k/uL (3.8-10.6)
[2023-04-28 18:53] LABS: ALT 30 U/L (4-49); AST 28 U/L (17-59); African American GFR (CKD) 80 (>60 ml/min/1.73 sqM); Albumin 4.4 g/dL (3.5-5.0); Alkaline Phosphatase 82 U/L (38-126); Anion Gap 16 mmol/L; Blood Urea Nitrogen 18 mg/dL (9-20); Calcium 9.7 mg/dL (8.4-10.2); Carbon Dioxide 17 mmol/L (22-30); Chloride 100 mmol/L (98-107); Glucose 215 mg/dL (74-99); Non-African American GFR(CKD) 69 (>60 ml/min/1.73 sqM); Potassium 4.7 mmol/L (3.5-5.1); Sodium 133 mmol/L (137-145); Total Bilirubin 1.2 mg/dL (0.2-1.3); Total Protein 7.6 g/dL (6.3-8.2)
[2023-04-28] MEDS ORDERED: SODIUM CHLORIDE 0.9% 1,000 ML IV ONE ×2 (20:03→21:04)
--- NOTE | 2023-04-28 20:03 | ED ---
General Adult HPI - General Chief complaint: Extremity Problem,Nontraumatic Stated complaint: right foot infection Time Seen by Provider: 04/28/23 17:25 Source: patient, RN notes reviewed, old records reviewed Mode of arrival: ambulatory Limitations: no limitations - History of Present Illness Initial comments: This is a 58-year-old male who comes into the emergency department with an infected ulcer on his right foot. Patient was sent in by Dr. Gonsalez the infectious disease physician. Patient states it was getting better but as of late he got more red hot and painful and he went and saw his doctor sent him into the emergency department immediately. Patient states she's also been spiking a fever. Patient denies any chest pain difficulty breathing shortest breath per patient denies any other symptoms at this time. - Related Data Home Medications Medication Instructions Recorded Confirmed Olmesartan [Benicar] 20 mg PO DAILY 02/17/15 02/24/23 metFORMIN HCL [Glucophage] 1,000 mg PO BID 02/17/15 02/24/23 metFORMIN HCL [Glucophage] 500 mg PO DAILY@1700 12/01/22 02/24/23 Furosemide [Lasix] 40 mg PO DAILY 02/05/23 02/24/23 carvediloL [Coreg] 25 mg PO BID 02/05/23 02/24/23 Previous Rx's Medication Instructions Recorded Dapagliflozin Propanediol [Farxiga] 10 mg PO DAILY #30 tab 12/10/22 Aspirin 81 mg PO DAILY #30 tab 12/11/22 Atorvastatin [Lipitor] 20 mg PO HS #30 tab 12/11/22 Clopidogrel [Plavix] 75 mg PO DAILY #30 tab 12/11/22 Spironolactone [Aldactone] 25 mg PO DAILY #30 tab 12/11/22 hydrALAZINE HCL [Apresoline] 25 mg PO BID #90 tab 12/11/22 Acetaminophen Tab [Tylenol] 650 mg PO Q6HR PRN tab 02/11/23 Vancomycin 1,750 mg IVPB Q12H #84 each 02/11/23 metroNIDAZOLE [Flagyl] 500 mg PO TID 42 Days #126 tab 02/11/23 Allergies Allergy/AdvReac Type Severity Reaction Status Date / Time levofloxacin [From Levaquin] Allergy Swelling, Verified 02/24/23 09:25 RASH Penicillins Allergy Unknown Verified 09/25/23 09:25 Childhood Review of Systems ROS Statement: Those systems with pertinent positive or pertinent negative responses have been documented in the HPI. ROS Other: All systems not noted in ROS Statement are negative. Past Medical History Past Medical History: Diabetes Mellitus, GERD/Reflux, Hypertension Additional Past Medical History / Comment(s): osteomyelitis and pain left foot, stepped on kristen nail October 2018,hx neuropathy History of Any Multi-Drug Resistant Organisms: MRSA Date of last positivie culture/infection: march 2022 MDRO Source:: toe Past Surgical History: Tonsillectomy Additional Past Surgical History / Comment(s): endoscopy, middle toe rt foot removed ,lft 2nd toe tip removed Past Anesthesia/Blood Transfusion Reactions: No Reported Reaction Past Psychological History: No Psychological Hx Reported Smoking Status: Former smoker Past Alcohol Use History: None Reported Past Drug Use History: None Reported - Past Family History Mother Family Medical History: Cancer Additional Family Medical History / Comment(s): breast cancer Father Family Medical History: Cancer Additional Family Medical History / Comment(s): lung cancer Sister(s) Family Medical History: Cancer Additional Family Medical History / Comment(s): lung cancer General Exam - General Exam Comments Initial Comments: GENERAL: Patient is well-developed and well-nourished. Patient is nontoxic and well- hydrated and is in mild distress. ENT: Neck is soft and supple. No significant lymphadenopathy is noted. Oropharynx is clear. Moist mucous membranes. Neck has full range of motion without eliciting any pain. EYES: The sclera were anicteric and conjunctiva were pink and moist. Extraocular movements were intact and pupils were equal round and reactive to light. Eyelids were unremarkable. PULMONARY: Unlabored respirations. Good breath sounds bilaterally. No audible rales rhonchi or wheezing was noted. CARDIOVASCULAR: Patient is tachycardic at 110 beats a minute ABDOMEN: Soft and nontender with normal bowel sounds. SKIN: Skin is clear with no lesions or rashes and otherwise unremarkable. NEUROLOGIC: Patient is alert and oriented x3. Cranial nerves II through XII are grossly intact. Motor and sensory are also intact. Normal speech, volume and content. Symmetrical smile. MUSCULOSKELETAL: Normal extremities with adequate strength and full range of motion. Patient's plantar surface of the right foot at the distal third metatarsal was swollen and red and tender and the ulceration was relatively deep LYMPHATICS: No significant lymphadenopathy is noted PSYCHIATRIC: Normal psychiatric evaluation. Limitations: no limitations Course Vital Signs 04/28/23 17:21 Temperature 99.8 F H Pulse Rate 110 H Respiratory 20 Rate Blood Pressure 158/92 O2 Sat by Pulse 99 Oximetry Medical Decision Making - Medical Decision Making Was pt. sent in by a medical professional or institution (, PA, CHANNEL SALES DIRECTOR, urgent care, hospital, or longterm...) When possible be specific @ -Was sent in by Dr. Tavares Did you speak to anyone other than the patient for history (EMS, parent, family, police, friend...)? What history was obtained from this source @ -Dr. Gonsalez gave all the history prior to the patient's arrival Did you review nursing and triage notes (agree or disagree)? Why? @ -I reviewed and agree with nursing and triage notes Were old charts reviewed (outside hosp., previous admission, EMS record, old EKG, old radiological studies, urgent care reports/EKG's, longterm records)? Report findings @ -I reviewed prior charts prior lab work on this patient Differential Diagnosis (chest pain, altered mental status, abdominal pain women, abdominal pain men, vaginal bleeding, weakness, fever, dyspnea, syncope, headache, dizziness, GI bleed, back pain, seizure, CVA, palpatations, mental health, musculoskeletal)? @ -Differential Fever: Pneumonia, viral URI, endocarditis, myocarditis, pericarditis, otitis, sinusitis, peritonsillar Abscess, retropharyngeal Abscess, epiglottitis, peritonitis, appendicitis, Lizzette cystitis, diverticulitis, hepatitis, colitis, UTI, PID, TOA, pyelonephritis, prostatitis, epididymitis, meningitis, encephalitis, pulmonary embolism, CVA, thyroid storm, pancreatitis, adrenal crisis, cavernous sinus thrombosis, this is not meant to be an all-inclusive list. EKG interpreted by me (3pts min.). @ -As above X-rays interpreted by me (1pt min.). @ -X-ray of the foot shows osteomyelitis CT interpreted by me (1pt min.). @ -None done U/S interpreted by me (1pt. min.). @ -None done What testing was considered but not performed or refused? (CT, X-rays, U/S, labs)? Why? @ -None What meds were considered but not given or refused? Why? @ -None Did you discuss the management of the patient with other professionals (professionals i.e. , PA, CHANNEL SALES DIRECTOR, lab, RT, psych nurse, hospice social worker, dynamite reclaimer, teacher, legal compliance officer, pillowcase cleaner)? Give summary @ -[facility] and the patient wrote admitting orders Was smoking cessation discussed for >3mins.? @ -No Was critical care preformed (if so, how long)? @ -No Were there social determinants of health that impacted care today? How? (Homelessness, low income, unemployed, alcoholism, drug addiction, transportation, low edu. Level, literacy, decrease access to med. care, half-way, rehab)? @ -No Was there de-escalation of care discussed even if they declined (Discuss DNR or withdrawal of care, Hospice)? DNR status @ -No What co-morbidities impacted this encounter? (DM, HTN, Smoking, COPD, CAD, Cancer, CVA, ARF, Chemo, Hep., AIDS, mental health diagnosis, sleep apnea, morbid obesity)? @ -None Was patient admitted / discharged? Hospital course, mention meds given and route, prescriptions, significant lab abnormalities, going to OR and other pertinent info. @ -Patient had 102.3 fever patient x-ray showed possible colitis admitted the patient started on cefepime and vancomycin. [facility] agreed to admit the patient admitted the patient wrote admitting orders Undiagnosed new problem with uncertain prognosis? @ -No Drug Therapy requiring intensive monitoring for toxicity (Heparin, Nitro, Insulin, Cardizem)? @ -No Were any procedures done? @ -No Diagnosis/symptom? @ -Osteomyelitis distal third metatarsal with overlying cellulitis and possible abscess Acute, or Chronic, or Acute on Chronic? @ -Acute Uncomplicated (without systemic symptoms) or Complicated (systemic symptoms)? @ -Complicated Side effects of treatment? @ -No Exacerbation, Progression, or Severe Exacerbation? @ -No Poses a threat to life or bodily function? How? (Chest pain, USA, OR, pneumonia, PE, COPD, DKA, ARF, appy, cholecystitis, CVA, Diverticulitis, Homicidal, Suicidal, threat to staff... and all critical care pts) @ -Yes this could lead to sepsis and end organ dysfunction - Lab Data Result diagrams: 04/28/23 18:03 04/28/23 18:03 Lab Results 04/28/23 04/28/23 04/28/23 Range/Units 18:03 18:03 18:03 WBC 7.4 (3.8-10.6) k/uL RBC 3.89 L (4.30-5.90) m/uL Hgb 12.1 L (13.0-17.5) gm/dL Hct 34.1 L (39.0-53.0) % MCV 87.8 (80.0-100.0) fL MCH 31.2 (25.0-35.0) pg MCHC 35.6 (31.0-37.0) g/dL RDW 13.4 (11.5-15.5) % Plt Count 177 (150-450) k/uL MPV 7.5 Neutrophils % 79 % Lymphocytes % 13 % Monocytes % 5 % Eosinophils % 1 % Basophils % 1 % Neutrophils # 5.9 (1.3-7.7) k/uL Lymphocytes # 1.0 (1.0-4.8) k/uL Monocytes # 0.4 (0-1.0) k/uL Eosinophils # 0.0 (0-0.7) k/uL Basophils # 0.0 (0-0.2) k/uL Sodium 133 L (137-145) mmol/L Potassium 4.7 (3.5-5.1) mmol/L Chloride 100 (98-107) mmol/L Carbon Dioxide 17 L (22-30) mmol/L Anion Gap 16 mmol/L BUN 18 (9-20) mg/dL Creatinine 1.17 (0.66-1.25) mg/dL Est GFR (CKD-EPI)AfAm 80 (>60 ml/min/1.73 sqM) Est GFR (CKD-EPI)NonAf 69 (>60 ml/min/1.73 sqM) Glucose 215 H (74-99) mg/dL Plasma Lactic Acid Andrey 2.4 H* (0.7-2.0) mmol/L Calcium 9.7 (8.4-10.2) mg/dL Total Bilirubin 1.2 (0.2-1.3) mg/dL AST 28 (17-59) U/L ALT 30 (4-49) U/L Alkaline Phosphatase 82 (38-126) U/L Total Protein 7.6 (6.3-8.2) g/dL Albumin 4.4 (3.5-5.0) g/dL Disposition Clinical Impression: Osteomyelitis, Cellulitis of foot Disposition: ADMITTED IP TO THIS HOSP Referrals: Corrine Cabezas MD [Primary Care Provider] - 1-2 days Time of Disposition: 19:35
[2023-04-28] MEDS: CEFEPIME 2 GM in SODIUM CHLORIDE 0.9% 100 ML IVPB SCH (23:30)
[2023-04-29] MEDS ORDERED: FAMOTIDINE 20 MG TAB PO STA (04:56)
[2023-04-29] MEDS: CEFEPIME 2 GM in SODIUM CHLORIDE 0.9% 100 ML IVPB SCH ×2 (08:30→15:40)
[2023-04-29] MEDS: VANCOMYCIN 1,750 MG in SODIUM CHLORIDE 0.9% 500 ML 500 ML IVPB SCH ×2 (09:48→21:38)
[2023-04-29 10:02] LABS: African American GFR (CKD) 70 (>60 ml/min/1.73 sqM); Non-African American GFR(CKD) 60 (>60 ml/min/1.73 sqM)
[2023-04-29] MEDS: ACETAMINOPHEN TAB 500 MG TAB PO PRN ×3 (12:06→18:11)
[2023-04-29] MEDS: ONDANSETRON 4 MG/2 ML VIAL IVP PRN (12:16)
[2023-04-29] MEDS ORDERED: DEXTROSE 50% SYRINGE 50 ML IVP PRN ×2 (14:08)
[2023-04-29] MEDS: HEPARIN SODIUM,PORCINE 5,000 UNIT/ML 1 ML VIAL SQ SCH ×2 (15:40→21:38)
[2023-04-29 17:40] LABS: Glucose,Whole Blood 269 mg/dL (70-110)
[2023-04-29] MEDS: carvediloL 12.5 MG TAB PO SCH (17:57)
[2023-04-29] MEDS: INSULIN ASPART (NovoLOG) 100 UNIT/ML VIAL SQ SCH ×2 (17:57→21:38)
--- NOTE | 2023-04-29 19:23 | HP ---
HISTORY AND PHYSICAL CHIEF COMPLAINT: Right foot infection. HISTORY OF PRESENT ILLNESS: This is a 58-year-old gentleman with a past medical history of multiple medical problems including recurrent ulcer of the right foot, who also had amputation. The patient was sent in by Dr. Tavares, who noted more infection, pain, and cellulitis of the foot. There is no history of any fever, rigor, or chills at this time. The lactic acid was found to be 2.5, the foot x-ray showed suspect osteomyelitis. PAST MEDICAL HISTORY: Reviewed includes diabetes mellitus and GERD. Rest of the history and rest of the chart are also reviewed. HOME MEDICATIONS: Reviewed include metformin. Doses and rest of the medications are noted. ALLERGIES: Levaquin. FAMILY HISTORY: History of breast cancer in the family. SOCIAL HISTORY: Previous history of smoking. REVIEW OF SYSTEMS: Fourteen-point review is negative except as mentioned earlier. PHYSICAL EXAMINATION: VITAL SIGNS: Pulse is 70, blood pressure 97/54, respirations 16. HEENT: Conjunctivae are normal. NECK: No jugular venous distention. CARDIOVASCULAR: S1 and S2. RESPIRATORY: Breath sounds diminished at the bases. ABDOMEN: Soft and nontender. LEGS: Right foot cellulitis and ulcer present. NERVOUS SYSTEM: No focal deficits. SKIN: No rashes. JOINTS: No active arthropathy. LABORATORY DATA: Reviewed. WBC 7.5. ASSESSMENT: 1. Right foot diabetic foot ulcer and cellulitis with failure of outpatient treatment, possible osteomyelitis. 2. Hyponatremia. 3. Diabetes mellitus, type 2. 4. Hypertension. 5. History of previous toe amputation. 6. History of methicillin-resistant Staphylococcus aureus. RECOMMENDATIONS AND DISCUSSION: In this 58-year-old gentleman presented with multiple complex medical issues, we will monitor the patient closely. Continue with current medications. Continue with symptomatic treatment. Vancomycin has been initiated. Infectious Disease evaluation. Vascular Surgery evaluation. I would also recommend bone scan. Resume the home medications. Monitor blood sugars closely. DVT prophylaxis. Symptomatic treatment. Prognosis is guarded because of multiple complex medical issues. Further recommendations to follow. See orders for details. MMODL / IJN: [id number] /
[2023-04-29 20:51] LABS: Glucose,Whole Blood 273 mg/dL (70-110)
[2023-04-29] MEDS: metFORMIN 500 MG TAB PO SCH (21:38)
[2023-04-29] MEDS: hydrALAZINE HCL 25 MG TAB PO SCH (21:38)
[2023-04-29] MEDS: ATORVASTATIN 20 MG TAB PO SCH (21:38)
[2023-04-30] MEDS: CEFEPIME 2 GM in SODIUM CHLORIDE 0.9% 100 ML IVPB SCH ×4 (01:00→23:37)
[2023-04-30] MEDS: ONDANSETRON 4 MG/2 ML VIAL IVP PRN ×2 (03:06→23:32)
[2023-04-30 07:34] LABS: African American GFR (CKD) 86 (>60 ml/min/1.73 sqM); Anion Gap 11 mmol/L; Blood Urea Nitrogen 18 mg/dL (9-20); Calcium 8.2 mg/dL (8.4-10.2); Carbon Dioxide 16 mmol/L (22-30); Chloride 104 mmol/L (98-107); Glucose 197 mg/dL (74-99); Non-African American GFR(CKD) 75 (>60 ml/min/1.73 sqM); Potassium 4.2 mmol/L (3.5-5.1); Sodium 131 mmol/L (137-145)
[2023-04-30 07:47] LABS: C Reactive Protein 16.1 mg/dL (<1.0)
--- NOTE | 2023-04-30 07:47 | P.CONS ---
History of Present Illness - Reason for Consult Consult date: 04/29/23 - History of Present Illness Patient is a 58-year-old male with a past medical history significant for diabetes mellitus hypertension reflux did have a history of recurrent diabetic foot infection who was recently admitted to the hospital in this patient with sharp excisional debridement of the right foot wound extending down to the bone and culture were positive for Enterococcus faecalis and staph epi patient has completed a course of IV vancomycin and oral Flagyl and the patient was on oral doxycycline and Flagyl subsequently lost to follow-up patient was following up at [facility] care [facility] patient presented to the office yesterday concerning for increasing swelling and redness to the right foot a pparently has been getting worse for the last few days. Denies any history of any trauma he did have diabetic neuropathy denies significant pain except some pressure and did have some drainage but no foul-smelling patient was evaluated the office has been diagnosed with abscess and need for surgical intervention for the patient was advised to go to the ER patient on presentation to the hospital did have a low-grade fever of 99.8 F, patient was not tachycardic hypotensive or hypoxic white count of 7.4 creatinine is 1.17 influenza RSV COVID testing was negative patient did have a foot x-ray suspected osteomyelitic changes surgical bed of the third digit metatarsal head soft tissue swelling p atient was started on cefepime and vancomycin as per discussion with the ER physician infectious diseases was consulted for further management of antibiotic therapy Past Medical History Past Medical History: Diabetes Mellitus, GERD/Reflux, Hypertension Additional Past Medical History / Comment(s): osteomyelitis and pain left foot, stepped on kristen nail October 2018,hx neuropathy History of Any Multi-Drug Resistant Organisms: MRSA Year Discovered:: march 2022 MDRO Source:: toe Past Surgical History: Tonsillectomy Additional Past Surgical History / Comment(s): endoscopy, middle toe rt foot removed ,lft 2nd toe tip removed Past Anesthesia/Blood Transfusion Reactions: No Reported Reaction Past Psychological History: No Psychological Hx Reported Smoking Status: Former smoker Past Alcohol Use History: None Reported Past Drug Use History: None Reported - Past Family History Mother Family Medical History: Cancer Additional Family Medical History / Comment(s): breast cancer Father Family Medical History: Cancer Additional Family Medical History / Comment(s): lung cancer Sister(s) Family Medical History: Cancer Additional Family Medical History / Comment(s): lung cancer Medications and Allergies Home Medications Medication Instructions Recorded Confirmed Type Dapagliflozin Propanediol [Farxiga] 10 mg PO DAILY #30 tab 12/10/22 04/28/23 Rx Aspirin 81 mg PO DAILY #30 tab 12/11/22 04/28/23 Rx Atorvastatin [Lipitor] 20 mg PO HS #30 tab 12/11/22 04/28/23 Rx Clopidogrel [Plavix] 75 mg PO DAILY #30 tab 12/11/22 04/28/23 Rx Spironolactone [Aldactone] 25 mg PO DAILY #30 tab 12/11/22 04/28/23 Rx hydrALAZINE HCL [Apresoline] 25 mg PO BID #90 tab 12/11/22 04/28/23 Rx Furosemide [Lasix] 40 mg PO DAILY 02/05/23 04/28/23 History carvediloL [Coreg] 25 mg PO BID 02/05/23 04/28/23 History Olmesartan Medoxomil [Benicar] 40 mg PO DAILY 04/28/23 04/28/23 History metFORMIN HCL 1,000 mg PO BID 04/28/23 04/28/23 History Allergies Allergy/AdvReac Type Severity Reaction Status Date / Time levofloxacin [From Levaquin] Allergy Swelling, Verified 04/28/23 20:51 RASH Penicillins Allergy Unknown Verified 04/28/23 20:51 Childhood Physical Exam Vitals: Vital Signs Temp Pulse Resp BP Pulse Ox 04/29/23 07:42 99.6 F 95 18 116/67 97 04/29/23 02:46 99.3 F 69 20 151/53 98 04/28/23 22:42 98.1 F 70 16 97/55 97 04/28/23 20:51 88 16 90/50 96 04/28/23 17:21 99.8 F H 110 H 20 158/92 99 Intake and Output 04/28/23 04/29/23 04/29/23 22:59 06:59 14:59 Other: Weight 120.656 kg Results CBC & Chem 7: 04/28/23 18:03 04/29/23 09:12 Labs: Abnormal Lab Results - Last 24 Hours (Table) 04/28/23 04/28/23 04/28/23 Range/Units 18:03 18:03 18:03 RBC 3.89 L (4.30-5.90) m/uL Hgb 12.1 L (13.0-17.5) gm/dL Hct 34.1 L (39.0-53.0) % Sodium 133 L (137-145) mmol/L Carbon Dioxide 17 L (22-30) mmol/L Creatinine (0.66-1.25) mg/dL Glucose 215 H (74-99) mg/dL Plasma Lactic Acid Andrey 2.4 H* (0.7-2.0) mmol/L 04/28/23 04/29/23 Range/Units 22:01 09:12 RBC (4.30-5.90) m/uL Hgb (13.0-17.5) gm/dL Hct (39.0-53.0) % Sodium (137-145) mmol/L Carbon Dioxide (22-30) mmol/L Creatinine 1.32 H (0.66-1.25) mg/dL Glucose (74-99) mg/dL Plasma Lactic Acid Andrey 2.6 H* (0.7-2.0) mmol/L Assessment and Plan Plan: 1patient presented to hospital increasing swelling redness to the right foot plantar aspect and this patient did have a previous right third toe amputation and recently did have debridement of the third metatarsal head with a culture positive for staph epi Enterococcus and Flagyl completed a 6-week course of IV followed by oral antibiotics now with worsening swelling redness to the area concerning for recurrent abscess and the need to be surgically drained 2await vascular surgery evaluation for drainage and deep culture 3we will empirically treat with a vancomycin cefepime add Flagyl while waiting for the culture to finalize we will follow on clinical condition and cultures to further adjust medication if needed Thank you for this consultation we will follow the patient along with you Dictation was produced using [employer] dictation software. please excuse any grammatical, word or spelling errors. Time with Patient: Greater than 30
[2023-04-30 08:08] LABS: Glucose,Whole Blood 227 mg/dL (70-110)
[2023-04-30] MEDS: VANCOMYCIN 1,750 MG in SODIUM CHLORIDE 0.9% 500 ML 500 ML IVPB SCH ×2 (09:20→21:15)
[2023-04-30] MEDS: metFORMIN 500 MG TAB PO SCH ×2 (10:08→21:17)
[2023-04-30] MEDS: CLOPIDOGREL 75 MG TAB PO SCH (10:08)
[2023-04-30] MEDS: INSULIN ASPART (NovoLOG) 100 UNIT/ML VIAL SQ SCH ×4 (10:08→21:15)
[2023-04-30] MEDS: metroNIDAZOLE 500 MG TAB PO SCH ×3 (10:08→21:15)
[2023-04-30] MEDS: HEPARIN SODIUM,PORCINE 5,000 UNIT/ML 1 ML VIAL SQ SCH ×3 (10:08→21:15)
[2023-04-30] MEDS: ASPIRIN 81 MG PO SCH (10:08)
[2023-04-30] MEDS: carvediloL 12.5 MG TAB PO SCH ×2 (10:11→18:13)
[2023-04-30] MEDS: SPIRONOLACTONE 25 MG TAB PO SCH (10:13)
[2023-04-30] MEDS: DAPAGLIFLOZIN PROPANEDIOL 10 MG TABLET PO SCH (10:13)
[2023-04-30] MEDS: LOSARTAN 50 MG TAB PO SCH (10:14)
[2023-04-30] MEDS: FUROSEMIDE 40 MG TAB PO SCH (10:14)
[2023-04-30] MEDS: hydrALAZINE HCL 25 MG TAB PO SCH ×2 (10:14→21:15)
[2023-04-30 10:59] LABS: Basophils # (A) 0.01 X 10*3/uL (0.00-0.10); Basophils % (A) 0.4 %; Eosinophils # (A) 0.05 X 10*3/uL (0.04-0.35); Eosinophils % (A) 1.8 %; HCT 25.7 % (39.6-50.0); Lymphocytes # (A) 0.61 X 10*3/uL (0.90-5.00); Lymphocytes % (A) 22.1 %; MCH 30.6 pg (27.0-32.0); MCV 87.4 FL (80.0-97.0); Mean Platelet Volume 9.7 FL (9.5-12.2); Monocytes # (A) 0.31 X 10*3/uL (0.20-1.00); Monocytes % (A) 11.2 %; NRBC Per 100 WBC 0 X 10*3/uL (0.00-0.01); Neutrophils # (A) 1.76 X 10*3/uL (1.80-7.70); Neutrophils % (A) 63.8 %; Platelet Count 118 X 10*3/uL (140-440); RBC 2.94 X 10*6/uL (4.40-5.60); WBC 2.76 X 10*3/uL (4.50-10.00)
[2023-04-30 11:53] LABS: Erythrocyte Sedimentation Rate 47 mm/Hr (0-20)
[2023-04-30 11:59] LABS: Glucose,Whole Blood 287 mg/dL (70-110)
--- NOTE | 2023-04-30 12:45 | NM ---
EXAMINATION TYPE: NM bone 3 phase DATE OF EXAM: 04/30/2023 COMPARISON: Plain film 04/28/2023. CLINICAL INDICATION: Male, 58 years old with history of osteo rt foot; Triple phase bone scintigraphy was performed following the injection of 23.5 mCi Tc 99m MDP. Immedia te images and 5 hours post injection images acquired. FINDINGS: There is three-phase radiotracer uptake within the right foot near the third metatarsal phalangeal hi int. This is felt to correlate with prior plain film. There is uptake present within the midfoot join ts on delayed images suggestive of degeneration. IMPRESSION: 1. Findings palpable with osteoarthritis involving the right foot third digit. 2. Degeneration uptake within the left midfoot joints.
[2023-04-30] MEDS: ACETAMINOPHEN TAB 500 MG TAB PO PRN (14:36)
--- NOTE | 2023-04-30 14:44 | PN ---
PROGRESS NOTE DATE OF SERVICE: 04/30/2023 SUBJECTIVE: This is a 58-year-old gentleman, who was admitted with right foot diabetic ulcer and failure of outpatient treatment. He is closely monitored. No chest pain. No palpitation. Surgical evaluation has been sought. The patient is running fever. PHYSICAL EXAMINATION: VITAL SIGNS: Pulse is 88, blood pressure is 105/60, respirations 16. HEENT: Conjunctivae are normal. NECK: No jugular venous distention. CARDIOVASCULAR: S1 and S2. RESPIRATORY: Breath sounds diminished at the bases. ABDOMEN: Soft and nontender. LEGS: Right foot diabetic ulcer present. NERVOUS SYSTEM: Nonfocal. LABORATORY DATA: Reviewed. CURRENT MEDICATIONS: Reviewed include cefepime. Rest of the medications are noted. REVIEW OF SYSTEMS: Fourteen-point review is negative except as mentioned earlier. ASSESSMENT: 1. Right foot diabetic ulcer with cellulitis with failure of outpatient treatment, with persistent fever, with possible sepsis. 2. Hyponatremia. 3. Diabetes mellitus, type 2. 4. Hypertension. 5. History of previous amputation of toe. 6. History of methicillin-resistant Staphylococcus aureus. 7. Methicillin-resistant Staphylococcus aureus sepsis. RECOMMENDATIONS: Recommend to continue current medications. Continue symptomatic treatment. . We will continue with vancomycin and cefepime combination with repeat cultures. Closely follow with Infectious Disease and Surgery. Further recommendations to follow. MMODL / IJN: [id number] / VLADISLAV
--- NOTE | 2023-04-30 15:04 | US ---
EXAMINATION TYPE: US arterial LE multi level DATE OF EXAM: 04/30/2023 2:23 PM CLINICAL INDICATION: Male, 58 years old with history of chronic wound right foot, need TBI; History of: Smoker: previous Hypertension: yes Diabetic: yes Hyperlipidemia: Yes TIA/CVA: No Previous Vascular Surgery: No CAD: No VA: No Vascular Ulcers: No Claudication: No Gangrene: No Doppler Waveforms: Right: Multiphasic Left: Multiphasic Right Brachial Pressure: 126 Left Brachial Pressure: 129 Ankle-Brachial Indices: Right: 1.2 Left: 1.1 Toe Brachial Indices: Right: 0.7 Left: 0.6 IMPRESSION: Ankle-brachial indices within normal limits bilaterally.
--- NOTE | 2023-04-30 16:48 | P.GSCN ---
History of Present Illness Consult date: 04/30/23 Reason for Consult: Osteomyelitis Requesting physician: Alexandria Shoemaker History of present illness: This a 58-year-old longtime diabetic patient with chronic wound to the right lower extremity over the last 2 years duration with history of osteomyelitis status post third toe amputation with recurrent infection. Was on assisted IV antibiotics and surgical debridement. Last underwent surgical debridement of the right plantar aspect of foot and prior amputation site #[address] Heard. Patient had fevers and chills at home and started seeing redness and swelling to the right foot and became concerned for infection. Came into the emergency department Positive blood cultures currently with gram-positive cocci. His been started on IV antibiotics. Surgery consulted for osteomyelitis and right foot ulcer. And currently denies any shortness of breath, chest pain, abdominal pain, nausea or vomiting. No fevers or chills currently. Review of Systems A 14 point review systems was completed all pertinent positives and negatives as stated in the HPI. Past Medical History Past Medical History: Diabetes Mellitus, GERD/Reflux, Hypertension Additional Past Medical History / Comment(s): osteomyelitis and pain left foot, stepped on kristen nail October 2018,hx neuropathy History of Any Multi-Drug Resistant Organisms: MRSA Year Discovered:: march 2022 MDRO Source:: toe Past Surgical History: Tonsillectomy Additional Past Surgical History / Comment(s): endoscopy, middle toe rt foot removed ,lft 2nd toe tip removed Past Anesthesia/Blood Transfusion Reactions: No Reported Reaction Past Psychological History: No Psychological Hx Reported Smoking Status: Former smoker Past Alcohol Use History: None Reported Past Drug Use History: None Reported - Past Family History Mother Family Medical History: Cancer Additional Family Medical History / Comment(s): breast cancer Father Family Medical History: Cancer Additional Family Medical History / Comment(s): lung cancer Sister(s) Family Medical History: Cancer Additional Family Medical History / Comment(s): lung cancer Medications and Allergies Home Medications Medication Instructions Recorded Confirmed Type Dapagliflozin Propanediol [Farxiga] 10 mg PO DAILY #30 tab 12/10/22 04/28/23 Rx Aspirin 81 mg PO DAILY #30 tab 12/11/22 04/28/23 Rx Atorvastatin [Lipitor] 20 mg PO HS #30 tab 12/11/22 04/28/23 Rx Clopidogrel [Plavix] 75 mg PO DAILY #30 tab 12/11/22 04/28/23 Rx Spironolactone [Aldactone] 25 mg PO DAILY #30 tab 12/11/22 04/28/23 Rx hydrALAZINE HCL [Apresoline] 25 mg PO BID #90 tab 12/11/22 04/28/23 Rx Furosemide [Lasix] 40 mg PO DAILY 02/05/23 04/28/23 History carvediloL [Coreg] 25 mg PO BID 02/05/23 04/28/23 History Olmesartan Medoxomil [Benicar] 40 mg PO DAILY 04/28/23 04/28/23 History metFORMIN HCL 1,000 mg PO BID 04/28/23 04/28/23 History Allergies Allergy/AdvReac Type Severity Reaction Status Date / Time levofloxacin [From Levaquin] Allergy Swelling, Verified 04/28/23 20:51 RASH Penicillins Allergy Unknown Verified 04/28/23 20:51 Childhood Surgical - Exam Vital Signs Temp Pulse Resp BP Pulse Ox 99.8 F H 110 H 20 158/92 99 04/28/23 17:21 04/28/23 17:21 04/28/23 17:21 04/28/23 17:21 04/28/23 17:21 General appearance: The patient is alert, oriented, appears in no acute distress. HET: Head is normocephalic and atraumatic. Pupils are equal and reactive. Neck: Supple. Heart: Regular. Lungs: Equal expansion, normal respiratory effort. Abdomen: Soft, nontender, nondistended. Extremities: Right foot edema, erythema, third toe amputation site well healed and approximated, diabetic ulcer to plantar surface of his foot. Palpable DP and PT pulses. Neurological: No focal deficits. Strength and sensation are grossly intact. Results - Labs 04/30/23 06:32 04/30/23 06:32 Abnormal Lab Results - Last 24 Hours (Table) 04/29/23 04/29/23 04/29/23 Range/Units 09:12 17:35 20:49 Sodium (137-145) mmol/L Carbon Dioxide (22-30) mmol/L Creatinine 1.32 H (0.66-1.25) mg/dL Glucose (74-99) mg/dL POC Glucose (mg/dL) 269 H 273 H (70-110) mg/dL Calcium (8.4-10.2) mg/dL C-Reactive Protein (<1.0) mg/dL 04/30/23 04/30/23 Range/Units 06:32 08:07 Sodium 131 L (137-145) mmol/L Carbon Dioxide 16 L (22-30) mmol/L Creatinine (0.66-1.25) mg/dL Glucose 197 H (74-99) mg/dL POC Glucose (mg/dL) 227 H (70-110) mg/dL Calcium 8.2 L (8.4-10.2) mg/dL C-Reactive Protein 16.1 H (<1.0) mg/dL Microbiology - Last 24 Hours (Table) 04/29/23 11:59 Gram Stain - Preliminary Foot - Right 04/28/23 18:03 Blood Culture Gram Stain - Preliminary Blood Diabetes panel 04/29/23 04/30/23 Range/Units 09:12 06:32 Sodium 131 L (137-145) mmol/L Potassium 4.2 (3.5-5.1) mmol/L Chloride 104 (98-107) mmol/L Carbon Dioxide 16 L (22-30) mmol/L BUN 18 (9-20) mg/dL Creatinine 1.32 H 1.10 (0.66-1.25) mg/dL Glucose 197 H (74-99) mg/dL Calcium 8.2 L (8.4-10.2) mg/dL Calcium panel 04/30/23 Range/Units 06:32 Calcium 8.2 L (8.4-10.2) mg/dL Pituitary panel 04/29/23 04/30/23 Range/Units 09:12 06:32 Sodium 131 L (137-145) mmol/L Potassium 4.2 (3.5-5.1) mmol/L Chloride 104 (98-107) mmol/L Carbon Dioxide 16 L (22-30) mmol/L BUN 18 (9-20) mg/dL Creatinine 1.32 H 1.10 (0.66-1.25) mg/dL Glucose 197 H (74-99) mg/dL Calcium 8.2 L (8.4-10.2) mg/dL Adrenal panel 04/29/23 04/30/23 Range/Units 09:12 06:32 Sodium 131 L (137-145) mmol/L Potassium 4.2 (3.5-5.1) mmol/L Chloride 104 (98-107) mmol/L Carbon Dioxide 16 L (22-30) mmol/L BUN 18 (9-20) mg/dL Creatinine 1.32 H 1.10 (0.66-1.25) mg/dL Glucose 197 H (74-99) mg/dL Calcium 8.2 L (8.4-10.2) mg/dL - Imaging Comments: Right foot x-ray report suspected osteomyelitis changes of the surgical bed of the third digit metatarsal head. Similar subluxation or dislocation at the right second MTP joint. Similar soft tissue swelling most prominently in the forefoot. Wound in the plantar aspect of the right forefoot Nuclear bone scan report findings palpable with osteoarthritis involving the right foot third digit. Degeneration uptake within the left midfoot joints. Assessment and Plan Assessment: 1. Osteomyelitis of right third metatarsal head 2. Chronic diabetic right foot ulcer 3. Diabetes mellitus 4. Bacteremia Plan: Discussed with patient ongoing chronic wound and infection with recurrent long- term antibiotic use recommendation would be to move forward at some point with a transmetatarsal amputation. Patient is agreeable with this plan. Patient is scheduled for right TMA tomorrow, nothing by mouth after midnight. Hold heparin prior to surgery. Continue IV antibiotics per recommendations from infectious disease. Arterial duplex ordered. The impression and plan of care has been dictated as directed. I performed a history and examination of this patient, discussed the same with the dictator. I agree with the dictator's note ,documented as a scribe. Any additional findings or plans will be noted.
[2023-04-30 17:17] LABS: Glucose,Whole Blood 235 mg/dL (70-110)
[2023-04-30 21:10] LABS: Glucose,Whole Blood 337 mg/dL (70-110)
[2023-04-30] MEDS: ATORVASTATIN 20 MG TAB PO SCH (21:15)
[2023-05-01] MEDS: ACETAMINOPHEN TAB 500 MG TAB PO PRN (01:38)
[2023-05-01] MEDS: ONDANSETRON 4 MG/2 ML VIAL IVP PRN ×2 (05:23→12:08)
[2023-05-01 07:21] LABS: Glucose,Whole Blood 201 mg/dL (70-110)
[2023-05-01] MEDS ORDERED: VANCOMYCIN TROUGH DUE 1 EACH MISC MISCELLANE ONE (08:00)
[2023-05-01 09:28] LABS: African American GFR (CKD) >90 (>60 ml/min/1.73 sqM); Anion Gap 11 mmol/L; Blood Urea Nitrogen 17 mg/dL (9-20); Calcium 8.4 mg/dL (8.4-10.2); Carbon Dioxide 17 mmol/L (22-30); Chloride 107 mmol/L (98-107); Glucose 177 mg/dL (74-99); Non-African American GFR(CKD) 87 (>60 ml/min/1.73 sqM); Potassium 4.4 mmol/L (3.5-5.1); Sodium 135 mmol/L (137-145)
[2023-05-01] MEDS: ASPIRIN 81 MG PO SCH (09:53)
[2023-05-01] MEDS: CLOPIDOGREL 75 MG TAB PO SCH (09:53)
[2023-05-01] MEDS: FUROSEMIDE 40 MG TAB PO SCH (09:54)
[2023-05-01] MEDS: LOSARTAN 50 MG TAB PO SCH (09:54)
[2023-05-01] MEDS: hydrALAZINE HCL 25 MG TAB PO SCH ×2 (09:54→20:42)
[2023-05-01] MEDS: VANCOMYCIN 1,750 MG in SODIUM CHLORIDE 0.9% 500 ML 500 ML IVPB SCH (10:16)
[2023-05-01] MEDS: metFORMIN 500 MG TAB PO SCH ×2 (10:17→20:41)
[2023-05-01] MEDS: DAPAGLIFLOZIN PROPANEDIOL 10 MG TABLET PO SCH (10:17)
[2023-05-01] MEDS: CEFEPIME 2 GM in SODIUM CHLORIDE 0.9% 100 ML IVPB SCH (10:17)
[2023-05-01] MEDS: carvediloL 12.5 MG TAB PO SCH ×2 (10:17→16:19)
[2023-05-01] MEDS: metroNIDAZOLE 500 MG TAB PO SCH ×3 (10:17→20:41)
[2023-05-01] MEDS: SPIRONOLACTONE 25 MG TAB PO SCH (10:18)
[2023-05-01] MEDS: INSULIN ASPART (NovoLOG) 100 UNIT/ML VIAL SQ SCH ×4 (10:19→20:42)
[2023-05-01 11:16] LABS: HCT 27.5 % (39.0-53.0); MCH 31.4 pg (25.0-35.0); MCHC 35.9 g/dL (31.0-37.0); MCV 87.5 fL (80.0-100.0); Mean Platelet Volume 7.8; Platelet Count 132 k/uL (150-450); Poikilocytosis Slight; RBC 3.14 m/uL (4.30-5.90); RDW 13.8 % (11.5-15.5); WBC 2.9 k/uL (3.8-10.6)
[2023-05-01 11:17] LABS: HGB 9.9 gm/dL (13.0-17.5)
[2023-05-01 12:15] LABS: Glucose,Whole Blood 194 mg/dL (70-110)
[2023-05-01 14:44] LABS: Eosinophils # (M) 0.12 k/uL (0-0.7); Lymphocytes # (M) 0.75 k/uL (1.0-4.8); Monocytes # (M) 0.32 k/uL (0-1.0); Neutrophils # (M) 1.71 k/uL (1.3-7.7); Neutrophils % (M) 59 %; Nucleated Red Blood Cells 0 /100 WBC (0-0); Total Cells Counted 100
--- NOTE | 2023-05-01 14:45 | P.PN ---
Subjective Progress Note Date: 04/30/23 Principal diagnosis: Reason for follow-up is diabetic foot infection and bacteremia Patient is a 58-year-old male with a past medical history significant for diabetes mellitus hypertension reflux did have a history of recurrent diabetic foot infection recently completed course of IV vancomycin and Flagyl presenting to the hospital with increasing swelling redness to the right foot concerning for abscess. On today's evaluation and that is04/30/2023, the patient did spike a fever of 101.4 this afternoon, the patient is breathing comfortably on room air. The patient denies having any shortness of breath no chest pain or cough, patient denies Abdominal pain, no nausea/vomiting or diarrhea , denies any worsening pain to the right foot Patient did have a white count of 2.76, sed rate is 47, creatinine 0.98 Objective - Vital Signs Vital signs: Vital Signs Temp 101.4 F 04/30/23 14:30 Pulse 85 04/30/23 14:30 Resp 12 04/30/23 14:30 BP 122/68 04/30/23 14:30 Pulse Ox 100 04/30/23 14:30 FiO2 Intake & Output 04/29/23 04/30/23 18:59 18:59 Intake Total 418 Balance 418 Weight Intake: Intake, IV Titration Amount Cefepime 2 gm In Sodium Chloride 0.9% 100 ml @ 25 mls/hr IVPB Q8HR MOOSE Rx# :[id number] Vancomycin 1,750 mg In Sodium Chloride 0.9% 500 ml 500 ml @ 167 mls/hr IVPB Q12HR MOOSE Rx#: [id number] Oral 418 Other: Voiding Method Toilet # Voids 3 - Exam GENERAL DESCRIPTION: A middle-aged male lying in bed in no distress RESPIRATORY SYSTEM: Unlabored breathing , clear to auscultation anteriorly HEART: S1 S2 regular rate and rhythm , ABDOMEN: Soft , no tenderness EXTREMITIES: Right foot is currently dressed no drainage on the dressing - Labs CBC & Chem 7: 05/01/23 10:48 05/01/23 08:45 Labs: Abnormal Lab Results - Last 24 Hours (Table) 04/30/23 04/30/23 05/01/23 Range/Units 17:15 21:07 07:19 WBC (3.8-10.6) k/uL RBC (4.30-5.90) m/uL Hgb (13.0-17.5) gm/dL Hct (39.0-53.0) % Plt Count (150-450) k/uL Sodium (137-145) mmol/L Carbon Dioxide (22-30) mmol/L Glucose (74-99) mg/dL POC Glucose (mg/dL) 235 H 337 H 201 H (70-110) mg/dL 05/01/23 05/01/23 05/01/23 Range/Units 08:45 10:48 12:13 WBC 2.9 L (3.8-10.6) k/uL RBC 3.14 L (4.30-5.90) m/uL Hgb 9.9 L D (13.0-17.5) gm/dL Hct 27.5 L (39.0-53.0) % Plt Count 132 L (150-450) k/uL Sodium 135 L (137-145) mmol/L Carbon Dioxide 17 L (22-30) mmol/L Glucose 177 H (74-99) mg/dL POC Glucose (mg/dL) 194 H (70-110) mg/dL Microbiology - Last 24 Hours (Table) 04/28/23 18:03 Blood Culture Gram Stain - Final Blood Blood Culture - Final Staphylococcus aureus 04/29/23 11:59 Anaerobic Culture - Final Foot - Right 04/29/23 11:59 Gram Stain - Final Foot - Right Wound Culture - Final Assessment and Plan (1) Osteomyelitis Current Visit: Yes Status: Acute Code(s): M86.9 - OSTEOMYELITIS, UNSPECIFIED SNOMED Code(s): 67188873 (2) Bacteremia Current Visit: No Status: Acute Code(s): R78.81 - BACTEREMIA SNOMED Code(s): 8957807 (3) Cellulitis of right foot Current Visit: No Status: Acute Priority: Medium Code(s): L03.115 - CELLULITIS OF RIGHT LOWER LIMB SNOMED Code(s): 83268621631727117 (4) Diabetic foot ulcer Current Visit: No Status: Acute Code(s): E11.621 - TYPE 2 DIABETES MELLITUS WITH FOOT ULCER; L97.509 - NON-PRESSURE CHRONIC ULCER OTH PRT UNSP FOOT W UNSP SEVERITY SNOMED Code(s): 958066846 Plan: 1patient presented to hospital increasing swelling redness to the right foot plantar aspect and this patient did have a previous right third toe amputation and recently did have debridement of the third metatarsal head with a culture positive for staph epi Enterococcus and Flagyl completed a 6-week course of IV followed by oral antibiotics now with worsening swelling redness to the area concerning for recurrent abscess and the need to be surgically drained 2await vascular surgery evaluation for drainage and deep culture 3-positive blood culture likely related to the right diabetic foot infection/abscess 4patient continue with the tympanic vancomycin cefepime add Flagyl while waiting for the culture to finalize Dictation was produced using [employer] dictation software. please excuse any grammatical, word or spelling errors. Time with Patient: Less than 30
--- NOTE | 2023-05-01 14:48 | P.PN ---
Subjective Progress Note Date: 05/01/23 Principal diagnosis: Reason for follow-up is diabetic foot infection and bacteremia Patient is a 58-year-old male with a past medical history significant for diabetes mellitus hypertension reflux did have a history of recurrent diabetic foot infection recently completed course of IV vancomycin and Flagyl presenting to the hospital with increasing swelling redness to the right foot concerning for abscess. On today's evaluation and that is 05/01/2023, the patient fever pattern has improved and is afebrile this afternoon, the patient is breathing comfortably on room air and denies any shortness of breath, the patient denies any chest pain, no cough or sputum production, patient denies nausea/vomiting /diarrhea and no abdominal pain, denies any worsening pain to the right foot Patient did have a white count of 2.9, creatinine 0.98 blood culture positive for MSSA Objective - Vital Signs Vital signs: Vital Signs Temp 98.7 F 05/01/23 14:10 Pulse 73 05/01/23 14:10 Resp 16 05/01/23 14:10 BP 112/63 05/01/23 14:10 Pulse Ox 98 05/01/23 14:10 FiO2 Intake & Output 04/30/23 05/01/23 05/01/23 18:59 06:59 18:59 Intake Total 418 600 Balance 418 600 Weight 118 kg Intake: Intake, IV Titration 600 Amount Cefepime 2 gm In Sodium 100 Chloride 0.9% 100 ml @ 25 mls/hr IVPB Q8HR [facility] Rx# :[id number] Vancomycin 1,750 mg In 500 Sodium Chloride 0.9% 500 ml 500 ml @ 167 mls/hr IVPB Q12HR [facility] Rx#: [id number] Oral 418 Other: Voiding Method Toilet Toilet Toilet # Voids 3 3 - Exam GENERAL DESCRIPTION: A middle-aged male lying in bed in no distress RESPIRATORY SYSTEM: Unlabored breathing , clear to auscultation anteriorly HEART: S1 S2 regular rate and rhythm , ABDOMEN: Soft , no tenderness EXTREMITIES: Right foot is currently dressed no drainage on the dressing - Labs CBC & Chem 7: 05/01/23 10:48 05/01/23 08:45 Labs: Abnormal Lab Results - Last 24 Hours (Table) 04/30/23 04/30/23 05/01/23 Range/Units 17:15 21:07 07:19 WBC (3.8-10.6) k/uL RBC (4.30-5.90) m/uL Hgb (13.0-17.5) gm/dL Hct (39.0-53.0) % Plt Count (150-450) k/uL Sodium (137-145) mmol/L Carbon Dioxide (22-30) mmol/L Glucose (74-99) mg/dL POC Glucose (mg/dL) 235 H 337 H 201 H (70-110) mg/dL 05/01/23 05/01/23 05/01/23 Range/Units 08:45 10:48 12:13 WBC 2.9 L (3.8-10.6) k/uL RBC 3.14 L (4.30-5.90) m/uL Hgb 9.9 L D (13.0-17.5) gm/dL Hct 27.5 L (39.0-53.0) % Plt Count 132 L (150-450) k/uL Sodium 135 L (137-145) mmol/L Carbon Dioxide 17 L (22-30) mmol/L Glucose 177 H (74-99) mg/dL POC Glucose (mg/dL) 194 H (70-110) mg/dL Microbiology - Last 24 Hours (Table) 04/28/23 18:03 Blood Culture Gram Stain - Final Blood Blood Culture - Final Staphylococcus aureus 04/29/23 11:59 Anaerobic Culture - Final Foot - Right 04/29/23 11:59 Gram Stain - Final Foot - Right Wound Culture - Final Assessment and Plan (1) Osteomyelitis Current Visit: Yes Status: Acute Code(s): M86.9 - OSTEOMYELITIS, UNSPECIFIED SNOMED Code(s): 50158554 (2) Bacteremia Current Visit: No Status: Acute Code(s): R78.81 - BACTEREMIA SNOMED Code(s): 5250004 (3) Cellulitis of right foot Current Visit: No Status: Acute Priority: Medium Code(s): L03.115 - CELLULITIS OF RIGHT LOWER LIMB SNOMED Code(s): 28888749470570723 (4) Diabetic foot ulcer Current Visit: No Status: Acute Code(s): E11.621 - TYPE 2 DIABETES MELLITUS WITH FOOT ULCER; L97.509 - NON-PRESSURE CHRONIC ULCER OTH PRT UNSP FOOT W UNSP SEVERITY SNOMED Code(s): 900348326 Plan: 1patient presented to hospital increasing swelling redness to the right foot plantar aspect and this patient did have a previous right third toe amputation and recently did have debridement of the third metatarsal head with a culture positive for staph epi Enterococcus and Flagyl completed a 6-week course of IV followed by oral antibiotics now with worsening swelling redness to the area concerning for recurrent abscess and the need to be surgically drained 2patient has been evaluated by vascular surgery as scheduled for drainage this afternoon 3-positive blood culture MSSA more likely related to right diabetic foot infection 4we'll discontinue vancomycin and cefepime, start the patient on cefazolin continue with oral Flagyl Dictation was produced using [employer] dictation software. please excuse any grammatical, word or spelling errors. Time with Patient: Less than 30
[2023-05-01] MEDS ORDERED: LACTATED RINGERS 1,000 ML IV ONE (15:40)
[2023-05-01 15:59] LABS: Glucose,Whole Blood 181 mg/dL (70-110)
[2023-05-01] MEDS ORDERED: LIDOCAINE 1% INJ 10MG/ML (20 ML MDV) ONE (16:51)
[2023-05-01] MEDS ORDERED: ePHEDrine 50 MG/ML 1 ML VIAL ONE (16:51)
[2023-05-01] MEDS ORDERED: PROPOFOL 10 MG/ML 20 ML VIAL IV ONE (16:51)
[2023-05-01] MEDS ORDERED: PHENYLEPHRINE-0.9% NACL SYG 1,000 MCG/10 ML SYRINGE ONE (16:51)
[2023-05-01] MEDS ORDERED: WATER FOR INJECTION, STERILE 10 ML VIAL IV ONE (16:51)
[2023-05-01] MEDS ORDERED: HYDROmorphone (PF) 1 MG/ML ONE (16:51)
[2023-05-01] MEDS ORDERED: ceFAZolin 1,000 MG VIAL ONE (16:51)
[2023-05-01] MEDS ORDERED: fentaNYL (PF) 50 MCG/ML 2 ML AMP ONE (16:51)
[2023-05-01] MEDS ORDERED: SUCCINYLCHOLINE CHLORIDE 200 MG/10 ML VIAL IV ONE (16:51)
[2023-05-01] MEDS ORDERED: MIDAZOLAM 2 MG/2 ML VIAL ONE (16:51)
[2023-05-01] MEDS ORDERED: SODIUM CHLORIDE 0.9% 100 ML BAG ONE (16:51)
--- NOTE | 2023-05-01 16:53 | PN ---
PROGRESS NOTE DATE OF SERVICE: 05/01/2023 SUBJECTIVE: This is a 58-year-old gentleman admitted with multiple medical problems, had MSSA grown from the blood culture. The patient is being closely monitored and receiving broad- spectrum IV antibiotics. The patient is feeling tired. Surgery is also following the patient as well as Infectious Disease. PAST MEDICAL HISTORY: Reviewed. REVIEW OF SYSTEMS: Fourteen-point review is negative except as mentioned earlier. MEDICATIONS: Reviewed include cefepime. Doses and rest of the medications are reviewed. PHYSICAL EXAMINATION: VITAL SIGNS: Pulse 73, blood pressure 112/66, respirations 16. CHEST: Clear to auscultation. CARDIOVASCULAR: S1 and S2 muffled. ABDOMEN: Soft. LEGS: Right leg cellulitis and swelling present. NERVOUS SYSTEM: Nonfocal. LABORATORY DATA: WBC 2.9. Rest of the labs are noted. ASSESSMENT: 1. Methicillin-susceptible Staphylococcus aureus sepsis. 2. Right foot diabetic ulcer with cellulitis with failure of outpatient treatment with fever. 3. Hyponatremia. 4. Diabetes mellitus, type 2. 5. Hypertension. 6. History of previous amputation of the toes. 7. History of methicillin-resistant Staphylococcus aureus. 8. Mild pancytopenia. RECOMMENDATIONS: Recommend to continue current medications. Continue symptomatic treatment. Repeat labs. Otherwise, closely monitor. Prognosis is guarded. Further recommendations to follow. MMODL / IJN: [id number] /
[2023-05-01] MEDS ORDERED: SODIUM CHLORIDE 0.9% 50 ML with ceFAZolin 2,000 MG IV ONE ×2 (17:15)
[2023-05-01] MEDS ORDERED: SODIUM CHLORIDE 0.9% 1,000 ML IV ONE (17:58)
--- NOTE | 2023-05-01 19:07 | P.OP ---
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 Postoperative Diagnosis: Same. Procedure(s) Performed: Right transmetatarsal amputation. Implants: None. Anesthesia: ASHLEY Surgeon: Wilmer Sandoval Estimated Blood Loss (ml): 100 Pathology: none sent Condition: stable Disposition: no change Indications for Procedure: Patient is a 58-year-old male with a long-standing history of diabetes mellitus is had a nonhealing wound of the plantar surface of his right foot for over 2 year time frame. He has undergone not third toe amputation and multiple debridements and multiple courses of IV antibiotics. He has normal femoral, popliteal, DP and PT pulses. In spite of all the effort and the adequate blood flow to the area of the wound is not healed and this is thought to be secondary to diabetic vascular disease. Owing to the location of the wound patient were card transmetatarsal amputation for adequate control and healing. The procedure, risk and benefits were discussed with the patient. All questions were answered patient's satisfaction. Description of Procedure: Patient brought the upper and placed in supine position and administered general endotracheal anesthesia delivered by the department anesthesiology. Patient's right foot and lower leg were sterilely prepped and draped in usual manner. Skin incision on the dorsum of the foot toe was made at the metatarsal level and carried down to the level of the bone. Hemostasis was achieved using electrocautery. Patient had excellent bleeding characteristics. The incision then was brought posteriorly allowing for a posterior flap to be performed. Utilizing a power saw the metatarsals were amputated and the specimen was sent to pathology. Brisk bleeding points were identified. These were controlled with either electrocautery or suture ligature where appropriate. The flap easily reach the anterior incision. The wound was irrigated copiously first with saline and then with antibiotic containing saline solution. Deep tissues were closed with 2-0 Vicryl. The unrestrained was placed from medial to lateral. Skin edges were approximate with skin burke. Adaptic fluffs and Kerlix were applied. Patient tolerated procedure well and was taken the recovery area in fact in stable condition.
[2023-05-01] MEDS ORDERED: oxyCODONE-APAP 7.5-325MG 1 EACH TAB PO PRN (19:08)
[2023-05-01] MEDS: MORPHINE SULFATE 2 MG/ML SYRINGE IVP PRN (19:48)
[2023-05-01 19:55] LABS: Glucose,Whole Blood 197 mg/dL (70-110)
[2023-05-01] MEDS: ATORVASTATIN 20 MG TAB PO SCH (20:41)
[2023-05-01] MEDS: HEPARIN SODIUM,PORCINE 5,000 UNIT/ML 1 ML VIAL SQ SCH (20:42)
[2023-05-01] MEDS: INSULIN DETEMIR (LEVEMIR) 100 UNIT/ML SYR SQ SCH (21:03)
[2023-05-02] MEDS: MORPHINE SULFATE 2 MG/ML SYRINGE IVP PRN ×2 (01:50→06:12)
[2023-05-02 07:18] LABS: Glucose,Whole Blood 208 mg/dL (70-110)
[2023-05-02] MEDS: carvediloL 12.5 MG TAB PO SCH ×2 (08:38→18:08)
[2023-05-02] MEDS: hydrALAZINE HCL 25 MG TAB PO SCH ×2 (08:38→21:34)
[2023-05-02] MEDS: FUROSEMIDE 40 MG TAB PO SCH (08:38)
[2023-05-02] MEDS: SPIRONOLACTONE 25 MG TAB PO SCH (08:39)
[2023-05-02] MEDS: LOSARTAN 50 MG TAB PO SCH (08:39)
[2023-05-02] MEDS: DAPAGLIFLOZIN PROPANEDIOL 10 MG TABLET PO SCH (08:43)
[2023-05-02] MEDS: INSULIN ASPART (NovoLOG) 100 UNIT/ML VIAL SQ SCH ×4 (08:44→21:09)
[2023-05-02] MEDS: INSULIN DETEMIR (LEVEMIR) 100 UNIT/ML SYR SQ SCH ×2 (08:44→21:09)
[2023-05-02] MEDS: HEPARIN SODIUM,PORCINE 5,000 UNIT/ML 1 ML VIAL SQ SCH ×2 (08:46→21:08)
[2023-05-02] MEDS: ASPIRIN 81 MG PO SCH (08:47)
[2023-05-02] MEDS: metroNIDAZOLE 500 MG TAB PO SCH ×3 (08:47→21:08)
[2023-05-02] MEDS: metFORMIN 500 MG TAB PO SCH ×2 (08:47→21:08)
[2023-05-02] MEDS: CLOPIDOGREL 75 MG TAB PO SCH (08:48)
[2023-05-02] MEDS: ONDANSETRON 4 MG/2 ML VIAL IVP PRN (10:01)
[2023-05-02 12:11] LABS: Glucose,Whole Blood 164 mg/dL (70-110)
--- NOTE | 2023-05-02 12:23 | P.PN ---
Subjective Progress Note Date: 05/02/23 Principal diagnosis: Osteomyelitis Patient seen and examined today as a follow-up. He is postop day #1 for right transmetatarsal amputation. States overall he is feeling okay. He is having pain, rates it a 4 out of 5 currently. His only been using morphine for pain management. He has been afebrile. Objective - Vital Signs Vital signs: Vital Signs Temp 99.3 F 05/02/23 07:14 Pulse 87 05/02/23 07:14 Resp 16 05/02/23 07:14 BP 107/69 05/02/23 07:14 Pulse Ox 95 05/02/23 07:14 FiO2 Intake & Output 05/01/23 05/02/23 05/02/23 18:59 06:59 18:59 Intake Total 1750 Output Total 100 Balance 1650 Weight 118 kg 119.295 kg Intake: IV 1150 Intake, IV Titration 600 Amount Cefepime 2 gm In Sodium 100 Chloride 0.9% 100 ml @ 25 mls/hr IVPB Q8HR [facility] Rx# :[id number] Vancomycin 1,750 mg In 500 Sodium Chloride 0.9% 500 ml 500 ml @ 167 mls/hr IVPB Q12HR [facility] Rx#: [id number] Output: Estimated Blood Loss 100 Other: Voiding Method Toilet Toilet # Voids 2 - Exam General appearance: The patient is alert, oriented, appears in no acute distress. HET: Head is normocephalic and atraumatic. Pupils are equal and reactive. Neck: Supple. Heart: Regular. Lungs: Equal expansion, normal respiratory effort. Abdomen: Soft, nontender, nondistended. Extremities: Right foot with dressing in place with some serosanguineous saturation. Neurological: No focal deficits. Strength and sensation are grossly intact. - Labs CBC & Chem 7: 05/01/23 10:48 05/01/23 08:45 Labs: Abnormal Lab Results - Last 24 Hours (Table) 05/01/23 05/01/23 05/01/23 Range/Units 10:48 15:58 19:51 WBC 2.9 L (3.8-10.6) k/uL RBC 3.14 L (4.30-5.90) m/uL Hgb 9.9 L D (13.0-17.5) gm/dL Hct 27.5 L (39.0-53.0) % Plt Count 132 L (150-450) k/uL Lymphocytes # (Manual) 0.75 L (1.0-4.8) k/uL POC Glucose (mg/dL) 181 H 197 H (70-110) mg/dL 05/02/23 05/02/23 Range/Units 07:17 12:10 WBC (3.8-10.6) k/uL RBC (4.30-5.90) m/uL Hgb (13.0-17.5) gm/dL Hct (39.0-53.0) % Plt Count (150-450) k/uL Lymphocytes # (Manual) (1.0-4.8) k/uL POC Glucose (mg/dL) 208 H 164 H (70-110) mg/dL Microbiology - Last 24 Hours (Table) 04/28/23 18:03 Blood Culture Gram Stain - Final Blood Blood Culture - Final Staphylococcus aureus 04/29/23 11:59 Anaerobic Culture - Final Foot - Right 04/29/23 11:59 Gram Stain - Final Foot - Right Wound Culture - Final Assessment and Plan Assessment: 1. Osteomyelitis of right third metatarsal head status post transmetatarsal amputation 2. Chronic diabetic right foot ulcer 3. Diabetes mellitus 4. Bacteremia Plan: 1. Continue symptomatic and supportive care 2. Continue with pain management, encourage use of oral analgesics 3. Recommend postop shoe for right foot 4. Heel walk only on right foot 5. Daily dressing change with Adaptic, 4 x 4 and Kerlix 6. Once otherwise medically cleared, patient is stable for discharge from vascular surgery The impression and plan of care has been dictated as directed. Dr Heard I performed a history and examination of this patient, discussed the same with the dictator. I agree with the dictator's note ,documented as a scribe. Any additional findings or plans will be noted.
--- NOTE | 2023-05-02 12:50 | PN ---
PROGRESS NOTE DATE OF SERVICE: 05/02/2023 SUBJECTIVE: This is a 58-year-old gentleman who was admitted with MSSA sepsis, also had right foot diabetic ulcer. The patient underwent right transmetatarsal amputation for nonhealing ulcer. No chest pain, no palpitations, no fever. CURRENT MEDICATIONS: Reviewed include cefazolin. REVIEW OF SYSTEMS: A 14-point review is negative except as mentioned earlier. OBJECTIVE: VITAL SIGNS: Pulse is 87, blood pressure 106/60, respirations 16. CHEST: Clear to auscultation. CARDIOVASCULAR: S1, S2. ABDOMEN: Soft. LEGS: No edema, foot status post surgery. NERVOUS SYSTEM: No focal deficits. LABORATORY DATA: Reviewed. ASSESSMENT: 1. MSSA sepsis present on admission. 2. Right foot diabetic ulcer with cellulitis, failure of outpatient treatment with fever with nonhealing wound right foot plantar surface, status post right transmetatarsal amputation. 3. Hyponatremia. 4. Diabetes mellitus, type 2. 5. Hypertension. 6. History of previous amputation of the toes. 7. History of MRSA. 8. Mild pancytopenia. RECOMMENDATIONS: 1. Recommended to continue current management, continue symptomatic treatment. Repeat labs. Closely monitor. Prognosis extremely guarded. 2. Multiple complex medical issues, we will continue the IV fluids, closely follow with multiple consultants. Monitor blood sugars closely. The patient is on IV cefazolin. Further recommendations to follow. See orders for details. Continue with addressing DVT prophylaxis. MMODL / IJN: [id number] /
[2023-05-02] MEDS: PANTOPRAZOLE 40 MG/10 ML VIAL IVP SCH ×2 (13:01→21:34)
[2023-05-02] MEDS ORDERED: METOCLOPRAMIDE 5 MG/ML 2 ML VIAL IVP PRN (14:10)
--- NOTE | 2023-05-02 15:09 | P.PN ---
Subjective Progress Note Date: 05/02/23 Principal diagnosis: Reason for follow-up is diabetic foot infection and bacteremia Patient is a 58-year-old male with a past medical history significant for diabetes mellitus hypertension reflux did have a history of recurrent diabetic foot infection recently completed course of IV vancomycin and Flagyl presenting to the hospital with increasing swelling redness to the right foot concerning for abscess. Patient is status post right transmetatarsal amputation completed on 05/01/2023 On today's evaluation and that is 05/02/2023 the patient remains to be afebrile, the patient is breathing comfortably on room air and no need for oxygen. The patient denies shortness of breath denies any chest pain or cough, patient denies nausea/vomiting or diarrhea and no abdominal pain, the patient pain to the right foot transmetatarsal amputation site is controlled Patient did have a white count of 2.9, creatinine 0.98 as of 05/01/2023 blood culture positive for MSSA, repeat blood cultures pending Objective - Vital Signs Vital signs: Vital Signs Temp 99.2 F 05/02/23 12:07 Pulse 92 05/02/23 12:07 Resp 16 05/02/23 12:07 BP 107/72 05/02/23 12:07 Pulse Ox 96 05/02/23 12:07 FiO2 Intake & Output 05/01/23 05/02/23 05/02/23 18:59 06:59 18:59 Intake Total 1750 Output Total 100 Balance 1650 Weight 118 kg 119.295 kg Intake: IV 1150 Intake, IV Titration 600 Amount Cefepime 2 gm In Sodium 100 Chloride 0.9% 100 ml @ 25 mls/hr IVPB Q8HR [facility] Rx# :[id number] Vancomycin 1,750 mg In 500 Sodium Chloride 0.9% 500 ml 500 ml @ 167 mls/hr IVPB Q12HR [facility] Rx#: [id number] Output: Estimated Blood Loss 100 Other: Voiding Method Toilet Toilet # Voids 2 - Exam GENERAL DESCRIPTION: A middle-aged male lying in bed in no distress RESPIRATORY SYSTEM: Unlabored breathing , clear to auscultation anteriorly HEART: S1 S2 regular rate and rhythm , ABDOMEN: Soft , no tenderness EXTREMITIES: Right foot transmetatarsal amputation site is dressed minimal drainage on the dressing - Labs CBC & Chem 7: 05/01/23 10:48 11/30/23 08:45 Labs: Abnormal Lab Results - Last 24 Hours (Table) 05/01/23 05/01/23 05/01/23 Range/Units 10:48 15:58 19:51 WBC 2.9 L (3.8-10.6) k/uL RBC 3.14 L (4.30-5.90) m/uL Hgb 9.9 L D (13.0-17.5) gm/dL Hct 27.5 L (39.0-53.0) % Plt Count 132 L (150-450) k/uL Lymphocytes # (Manual) 0.75 L (1.0-4.8) k/uL POC Glucose (mg/dL) 181 H 197 H (70-110) mg/dL 05/02/23 05/02/23 Range/Units 07:17 12:10 WBC (3.8-10.6) k/uL RBC (4.30-5.90) m/uL Hgb (13.0-17.5) gm/dL Hct (39.0-53.0) % Plt Count (150-450) k/uL Lymphocytes # (Manual) (1.0-4.8) k/uL POC Glucose (mg/dL) 208 H 164 H (70-110) mg/dL Microbiology - Last 24 Hours (Table) 04/28/23 18:03 Blood Culture Gram Stain - Final Blood Blood Culture - Final Staphylococcus aureus 04/29/23 11:59 Anaerobic Culture - Final Foot - Right 04/29/23 11:59 Gram Stain - Final Foot - Right Wound Culture - Final Assessment and Plan (1) Osteomyelitis Current Visit: Yes Status: Acute Code(s): M86.9 - OSTEOMYELITIS, UNSPECIFIED SNOMED Code(s): 75117569 (2) Bacteremia Current Visit: No Status: Acute Code(s): R78.81 - BACTEREMIA SNOMED Code(s): 7818028 (3) Cellulitis of right foot Current Visit: No Status: Acute Priority: Medium Code(s): L03.115 - CELLULITIS OF RIGHT LOWER LIMB SNOMED Code(s): 29889883614528600 (4) Diabetic foot ulcer Current Visit: No Status: Acute Code(s): E11.621 - TYPE 2 DIABETES MELLITUS WITH FOOT ULCER; L97.509 - NON-PRESSURE CHRONIC ULCER OTH PRT UNSP FOOT W UNSP SEVERITY SNOMED Code(s): 928850209 Plan: 1patient presented to hospital increasing swelling redness to the right foot plantar aspect and this patient did have a previous right third toe amputation and recently did have debridement of the third metatarsal head with a culture positive for staph epi Enterococcus and Flagyl completed a 6-week course of IV followed by oral antibiotics now with worsening swelling redness to the area concerning for recurrent abscess and the need to be surgically drained 2patient has been evaluated by vascular surgery is status post right transmetatarsal amputation 3-positive blood culture MSSA more likely related to right diabetic foot infection 4patient to continue with cefazolin will need a short course of IV antibiotic therapy because of his bacteremia Dictation was produced using [employer] dictation software. please excuse any gra mmatical, word or spelling errors. Time with Patient: Less than 30
[2023-05-02 17:09] LABS: Glucose,Whole Blood 193 mg/dL (70-110)
[2023-05-02 20:56] LABS: Glucose,Whole Blood 171 mg/dL (70-110)
[2023-05-02] MEDS: ATORVASTATIN 20 MG TAB PO SCH (21:08)
[2023-05-03 07:39] LABS: Glucose,Whole Blood 185 mg/dL (70-110)
[2023-05-03] MEDS: metFORMIN 500 MG TAB PO SCH ×2 (08:21→20:42)
[2023-05-03] MEDS: INSULIN ASPART (NovoLOG) 100 UNIT/ML VIAL SQ SCH ×4 (08:21→20:41)
[2023-05-03] MEDS: CLOPIDOGREL 75 MG TAB PO SCH (08:21)
[2023-05-03] MEDS: INSULIN DETEMIR (LEVEMIR) 100 UNIT/ML SYR SQ SCH ×2 (08:21→20:40)
[2023-05-03] MEDS: metroNIDAZOLE 500 MG TAB PO SCH ×3 (08:21→20:40)
[2023-05-03] MEDS: HEPARIN SODIUM,PORCINE 5,000 UNIT/ML 1 ML VIAL SQ SCH ×2 (08:21→20:40)
[2023-05-03] MEDS: ASPIRIN 81 MG PO SCH (08:21)
[2023-05-03] MEDS: LOSARTAN 50 MG TAB PO SCH (08:22)
[2023-05-03] MEDS: carvediloL 12.5 MG TAB PO SCH ×2 (08:22→16:48)
[2023-05-03] MEDS: DAPAGLIFLOZIN PROPANEDIOL 10 MG TABLET PO SCH (08:22)
[2023-05-03] MEDS: PANTOPRAZOLE 40 MG/10 ML VIAL IVP SCH ×2 (08:22→20:40)
[2023-05-03] MEDS: FUROSEMIDE 40 MG TAB PO SCH (08:23)
[2023-05-03] MEDS: hydrALAZINE HCL 25 MG TAB PO SCH ×2 (08:23→20:45)
[2023-05-03] MEDS: SPIRONOLACTONE 25 MG TAB PO SCH (08:37)
[2023-05-03 09:42] LABS: Basophils % (A) 0 %; Eosinophils # (A) 0.1 k/uL (0-0.7); Eosinophils % (A) 3 %; HCT 25.5 % (39.0-53.0); HGB 8.8 gm/dL (13.0-17.5); Lymphocytes # (A) 1.1 k/uL (1.0-4.8); Lymphocytes % (A) 29 %; MCH 30.4 pg (25.0-35.0); MCHC 34.4 g/dL (31.0-37.0); MCV 88.5 fL (80.0-100.0); Mean Platelet Volume 8.5; Monocytes # (A) 0.3 k/uL (0-1.0); Monocytes % (A) 7 %; Neutrophils # (A) 2.3 k/uL (1.3-7.7); Neutrophils % (A) 58 %; Platelet Count 168 k/uL (150-450); Poikilocytosis Slight; RBC 2.88 m/uL (4.30-5.90); RDW 13.8 % (11.5-15.5); WBC 3.9 k/uL (3.8-10.6)
--- NOTE | 2023-05-03 11:17 | P.PN ---
Subjective Progress Note Date: 05/03/23 Patient seen and examined. No complaints. Right lower extremity wrapped, clean and dry. Utilizing the scooter. Right lower extremity has metatarsal amputation for nonhealing wound and osteomyelitis Bacteremia Continue current therapies, awaiting PICC line for IV antibiotics. Plan for daily dressing changes per nursing. Continue offloading. Okay for discharge when able. Objective - Vital Signs Vital signs: Vital Signs Temp 99.7 F H 05/03/23 08:00 Pulse 69 05/03/23 08:00 Resp 18 05/03/23 08:00 BP 92/52 05/03/23 08:00 Pulse Ox 96 05/03/23 08:00 FiO2 Intake & Output 05/02/23 05/03/23 05/03/23 18:59 06:59 18:59 Intake Total 170 120 Balance 170 120 Weight 257.928 kg Intake: Intake, IV Titration 50 Amount ceFAZolin 2 gm In Sodium 50 Chloride 0.9% 50 ml @ 100 mls/hr IVPB Q8HR [facility] Rx# :[id number] Oral 120 120 Other: Voiding Method Toilet Toilet # Voids 3 - Labs CBC & Chem 7: 05/03/23 06:47 05/01/23 08:45 Labs: Abnormal Lab Results - Last 24 Hours (Table) 05/02/23 05/02/23 05/02/23 Range/Units 12:10 17:07 20:45 RBC (4.30-5.90) m/uL Hgb (13.0-17.5) gm/dL Hct (39.0-53.0) % POC Glucose (mg/dL) 164 H 193 H 171 H (70-110) mg/dL 05/03/23 05/03/23 Range/Units 06:47 07:28 RBC 2.88 L (4.30-5.90) m/uL Hgb 8.8 L (13.0-17.5) gm/dL Hct 25.5 L (39.0-53.0) % POC Glucose (mg/dL) 185 H (70-110) mg/dL Microbiology - Last 24 Hours (Table) 05/01/23 08:45 Blood Culture - Preliminary Blood
[2023-05-03 11:49] LABS: ALT 31 U/L (4-49); AST 29 U/L (17-59); African American GFR (CKD) >90 (>60 ml/min/1.73 sqM); Albumin 2.9 g/dL (3.5-5.0); Albumin/Globulin Ratio 1.1; Alkaline Phosphatase 84 U/L (38-126); Anion Gap 10 mmol/L; Blood Urea Nitrogen 15 mg/dL (9-20); Calcium 8.1 mg/dL (8.4-10.2); Carbon Dioxide 23 mmol/L (22-30); Chloride 105 mmol/L (98-107); Globulin 2.7 g/dL; Glucose 136 mg/dL (74-99); Non-African American GFR(CKD) 87 (>60 ml/min/1.73 sqM); Potassium 4.1 mmol/L (3.5-5.1); Sodium 138 mmol/L (137-145); Total Bilirubin 0.4 mg/dL (0.2-1.3); Total Protein 5.6 g/dL (6.3-8.2)
[2023-05-03 12:12] LABS: Glucose,Whole Blood 156 mg/dL (70-110)
[2023-05-03 17:43] LABS: Glucose,Whole Blood 203 mg/dL (70-110)
--- NOTE | 2023-05-03 19:40 | PN ---
PROGRESS NOTE DATE OF SERVICE: 05/03/2023 SUBJECTIVE: This is a 58-year-old gentleman who was admitted with MSSA sepsis, transmetatarsal amputation. Most recent cultures are negative from 03/31. OBJECTIVE: VITAL SIGNS: Pulse is 69, blood pressure 90/52, respirations 18. CHEST: Clear to auscultation. CARDIOVASCULAR: S1, S2. ABDOMEN: Soft. NERVOUS SYSTEM: No focal deficits. EXTREMITIES: Right foot status post surgery. LABORATORY DATA: Reviewed. Hemoglobin 8.8. ASSESSMENT: 1. Methicillin-sensitive Staphylococcus aureus sepsis present on admission. 2. Right foot diabetic ulcer with cellulitis, failure of outpatient treatment with fever with nonhealing wound of the right foot plantar surface, status post right transmetatarsal amputation. 3. Hyponatremia. 4. Diabetes mellitus, type 2. 5. Hypertension. 6. History of previous amputation of the toes. 7. History of Methicillin-resistant Staphylococcus aureus. 8. Mild pancytopenia. RECOMMENDATIONS: Recommended to continue current management. Continue symptomatic treatment. Otherwise, at this time, I recommend continue the antibiotics. We will reduce the dose of Coreg. Repeat blood cultures. Further recommendations to follow. MMODL / IJN: [id number] /
[2023-05-03] MEDS: ATORVASTATIN 20 MG TAB PO SCH (20:40)
[2023-05-03 20:53] LABS: Glucose,Whole Blood 196 mg/dL (70-110)
[2023-05-04 02:41] LABS: Glucose,Whole Blood 167 mg/dL (70-110)
[2023-05-04 07:31] LABS: Glucose,Whole Blood 134 mg/dL (70-110)
[2023-05-04] MEDS: INSULIN ASPART (NovoLOG) 100 UNIT/ML VIAL SQ SCH ×4 (07:37→21:56)
[2023-05-04 07:48] LABS: Basophils % (A) 0 %; Eosinophils # (A) 0.2 k/uL (0-0.7); Eosinophils % (A) 4 %; HCT 26.7 % (39.0-53.0); HGB 9.3 gm/dL (13.0-17.5); Lymphocytes # (A) 1.7 k/uL (1.0-4.8); Lymphocytes % (A) 38 %; MCH 30.7 pg (25.0-35.0); MCHC 34.8 g/dL (31.0-37.0); MCV 88.2 fL (80.0-100.0); Mean Platelet Volume 7.7; Monocytes # (A) 0.3 k/uL (0-1.0); Monocytes % (A) 6 %; Neutrophils # (A) 2.2 k/uL (1.3-7.7); Neutrophils % (A) 49 %; Platelet Count 214 k/uL (150-450); RBC 3.03 m/uL (4.30-5.90); RDW 13.7 % (11.5-15.5); WBC 4.5 k/uL (3.8-10.6)
[2023-05-04] MEDS: INSULIN DETEMIR (LEVEMIR) 100 UNIT/ML SYR SQ SCH ×2 (08:18→21:57)
[2023-05-04] MEDS: metroNIDAZOLE 500 MG TAB PO SCH ×3 (08:19→21:58)
[2023-05-04] MEDS: CLOPIDOGREL 75 MG TAB PO SCH (08:19)
[2023-05-04] MEDS: DAPAGLIFLOZIN PROPANEDIOL 10 MG TABLET PO SCH (08:19)
[2023-05-04] MEDS: HEPARIN SODIUM,PORCINE 5,000 UNIT/ML 1 ML VIAL SQ SCH ×2 (08:19→21:58)
[2023-05-04] MEDS: ASPIRIN 81 MG PO SCH (08:19)
[2023-05-04] MEDS: metFORMIN 500 MG TAB PO SCH ×2 (08:19→21:58)
[2023-05-04] MEDS: SPIRONOLACTONE 25 MG TAB PO SCH (08:20)
[2023-05-04] MEDS: PANTOPRAZOLE 40 MG/10 ML VIAL IVP SCH ×2 (08:46→21:57)
[2023-05-04] MEDS: carvediloL 12.5 MG TAB PO SCH ×2 (08:47→16:46)
[2023-05-04] MEDS: hydrALAZINE HCL 25 MG TAB PO SCH ×2 (08:47→21:57)
[2023-05-04] MEDS: LOSARTAN 50 MG TAB PO SCH (08:47)
[2023-05-04] MEDS: FUROSEMIDE 40 MG TAB PO SCH (08:47)
[2023-05-04 11:07] LABS: African American GFR (CKD) >90 (>60 ml/min/1.73 sqM); Anion Gap 10 mmol/L; Blood Urea Nitrogen 14 mg/dL (9-20); Calcium 8.3 mg/dL (8.4-10.2); Carbon Dioxide 21 mmol/L (22-30); Chloride 107 mmol/L (98-107); Glucose 129 mg/dL (74-99); Non-African American GFR(CKD) >90 (>60 ml/min/1.73 sqM); Potassium 3.9 mmol/L (3.5-5.1); Sodium 138 mmol/L (137-145)
[2023-05-04 12:26] LABS: Glucose,Whole Blood 183 mg/dL (70-110)
--- NOTE | 2023-05-04 15:31 | P.PN ---
Subjective Progress Note Date: 05/03/23 Principal diagnosis: Reason for follow-up is diabetic foot infection and bacteremia Patient is a 58-year-old male with a past medical history significant for diabetes mellitus hypertension reflux did have a history of recurrent diabetic foot infection recently completed course of IV vancomycin and Flagyl presenting to the hospital with increasing swelling redness to the right foot concerning for abscess. Patient is status post right transmetatarsal amputation completed on 05/01/2023 On today's evaluation and that is 05/03/2023 the patient continues to be afebrile, the patient is breathing comfortably on room air and denies any shortness of breath, the patient denies chest pain or cough, patient denies abdominal pain, no nausea/vomiting or diarrhea., The patient denies pain to the right foot transmetatarsal amputation site Patient did have a white count of 3.9, creatinine 0.98 blood culture positive for MSSA, repeat blood cultures pending Objective - Vital Signs Vital signs: Vital Signs Temp 99.7 F H 05/03/23 08:00 Pulse 69 05/03/23 08:00 Resp 18 05/03/23 08:00 BP 92/52 05/03/23 08:00 Pulse Ox 96 05/03/23 08:00 FiO2 Intake & Output 05/02/23 05/03/23 05/03/23 18:59 06:59 18:59 Intake Total 170 120 Balance 170 120 Weight 257.928 kg Intake: Intake, IV Titration 50 Amount ceFAZolin 2 gm In Sodium 50 Chloride 0.9% 50 ml @ 100 mls/hr IVPB Q8HR [facility] Rx# :[id number] Oral 120 120 Other: Voiding Method Toilet Toilet Toilet # Voids 3 - Exam GENERAL DESCRIPTION: A middle-aged male lying in bed in no distress RESPIRATORY SYSTEM: Unlabored breathing , clear to auscultation anteriorly HEART: S1 S2 regular rate and rhythm , ABDOMEN: Soft , no tenderness EXTREMITIES: Right foot transmetatarsal amputation site is dressed minimal dr deluna on the dressing - Labs CBC & Chem 7: 05/04/23 06:48 05/04/23 06:48 Labs: Abnormal Lab Results - Last 24 Hours (Table) 05/02/23 05/02/23 05/03/23 Range/Units 17:07 20:45 06:47 RBC 2.88 L (4.30-5.90) m/uL Hgb 8.8 L (13.0-17.5) gm/dL Hct 25.5 L (39.0-53.0) % Glucose (74-99) mg/dL POC Glucose (mg/dL) 193 H 171 H (70-110) mg/dL Calcium (8.4-10.2) mg/dL Total Protein (6.3-8.2) g/dL Albumin (3.5-5.0) g/dL 05/03/23 05/03/23 05/03/23 Range/Units 06:47 07:28 11:53 RBC (4.30-5.90) m/uL Hgb (13.0-17.5) gm/dL Hct (39.0-53.0) % Glucose 136 H (74-99) mg/dL POC Glucose (mg/dL) 185 H 156 H (70-110) mg/dL Calcium 8.1 L (8.4-10.2) mg/dL Total Protein 5.6 L (6.3-8.2) g/dL Albumin 2.9 L (3.5-5.0) g/dL Microbiology - Last 24 Hours (Table) 05/02/23 05:51 Blood Culture - Preliminary Blood 05/01/23 08:45 Blood Culture - Preliminary Blood Assessment and Plan (1) Osteomyelitis Current Visit: Yes Status: Acute Code(s): M86.9 - OSTEOMYELITIS, UNSPECIFIED SNOMED Code(s): 88557269 (2) Bacteremia Current Visit: No Status: Acute Code(s): R78.81 - BACTEREMIA SNOMED Code(s): 2466743 (3) Cellulitis of right foot Current Visit: No Status: Acute Priority: Medium Code(s): L03.115 - MARIA ELENA LULITIS OF RIGHT LOWER LIMB SNOMED Code(s): 65328152911973786 (4) Diabetic foot ulcer Current Visit: No Status: Acute Code(s): E11.621 - TYPE 2 DIABETES MELLITUS WITH FOOT ULCER; L97.509 - NON-PRESSURE CHRONIC ULCER OTH PRT UNSP FOOT W UNSP SEVERITY SNOMED Code(s): 014261532 Plan: 1patient presented to hospital increasing swelling redness to the right foot plantar aspect and this patient did have a previous right third toe amputation and recently did have debridement of the third metatarsal head with a culture po sitive for staph epi Enterococcus and Flagyl completed a 6-week course of IV followed by oral antibiotics now with worsening swelling redness to the area concerning for recurrent abscess and the need to be surgically drained 2patient has been evaluated by vascular surgery is status post right trans metatarsal amputation 3-positive blood culture MSSA more likely related to right diabetic foot infec tion, repeat blood cultures currently pending 4patient to continue with cefazolin , plan is for IV cefazolin on discharge because of his bacteremia Dictation was produced using [employer] dictation software. please excuse any grammatical, word or spelling errors. Time with Patient: Less than 30
--- NOTE | 2023-05-04 15:32 | P.PN ---
Subjective Progress Note Date: 05/04/23 Principal diagnosis: Reason for follow-up is diabetic foot infection and bacteremia Patient is a 58-year-old male with a past medical history significant for diabetes mellitus hypertension reflux did have a history of recurrent diabetic foot infection recently completed course of IV vancomycin and Flagyl presenting to the hospital with increasing swelling redness to the right foot concerning for abscess. Patient is status post right transmetatarsal amputation completed on 05/01/2023 On today's evaluation and that is 05/04/2023 the patient denies any fever or any chills, the patient denies shortness of breath chest pain or cough, the patient nausea/vomiting or diarrhea and no abdominal pain., Patient pain to the right foot transmetatarsal amputation site has decreased in intensity Patient did have a white count of 4.5, creatinine 0.92 blood culture positive for MSSA, repeat blood cultures pending Objective - Vital Signs Vital signs: Vital Signs Temp 98.2 F 05/04/23 13:02 Pulse 71 05/04/23 13:02 Resp 18 05/04/23 13:02 BP 110/70 05/04/23 13:02 Pulse Ox 98 05/04/23 13:02 FiO2 Intake & Output 05/03/23 05/04/23 05/04/23 18:59 06:59 18:59 Intake Total 660 830 Balance 660 830 Weight 121.563 kg Intake: Oral 660 830 Other: Voiding Method Toilet Toilet # Voids 2 2 - Exam GENERAL DESCRIPTION: A middle-aged male lying in bed in no distress RESPIRATORY SYSTEM: Unlabored breathing , clear to auscultation anteriorly HEART: S1 S2 regular rate and rhythm , ABDOMEN: Soft , no tenderness EXTREMITIES: Right foot transmetatarsal amputation site minimal swelling and drainage - Labs CBC & Chem 7: 05/04/23 06:48 05/04/23 06:48 Labs: Abnormal Lab Results - Last 24 Hours (Table) 05/03/23 05/03/23 05/04/23 Range/Units 17:41 20:51 02:40 RBC (4.30-5.90) m/uL Hgb (13.0-17.5) gm/dL Hct (39.0-53.0) % Carbon Dioxide (22-30) mmol/L Glucose (74-99) mg/dL POC Glucose (mg/dL) 203 H 196 H 167 H (70-110) mg/dL Calcium (8.4-10.2) mg/dL 05/04/23 05/04/23 05/04/23 Range/Units 06:48 06:48 07:11 RBC 3.03 L (4.30-5.90) m/uL Hgb 9.3 L (13.0-17.5) gm/dL Hct 26.7 L (39.0-53.0) % Carbon Dioxide 21 L (22-30) mmol/L Glucose 129 H (74-99) mg/dL POC Glucose (mg/dL) 134 H (70-110) mg/dL Calcium 8.3 L (8.4-10.2) mg/dL 05/04/23 Range/Units 12:05 RBC (4.30-5.90) m/uL Hgb (13.0-17.5) gm/dL Hct (39.0-53.0) % Carbon Dioxide (22-30) mmol/L Glucose (74-99) mg/dL POC Glucose (mg/dL) 183 H (70-110) mg/dL Calcium (8.4-10.2) mg/dL Microbiology - Last 24 Hours (Table) 05/02/23 05:51 Blood Culture - Preliminary Blood 05/01/23 08:45 Blood Culture - Preliminary Blood 04/30/23 06:32 Blood Culture - Preliminary Blood Assessment and Plan (1) Osteomyelitis Current Visit: Yes Status: Acute Code(s): M86.9 - OSTEOMYELITIS, UNSPECIFIED SNOMED Code(s): 65455207 (2) Bacteremia Current Visit: No Status: Acute Code(s): R78.81 - BACTEREMIA SNOMED Code(s): 2833260 (3) Cellulitis of right foot Current Visit: No Status: Acute Priority: Medium Code(s): L03.115 - CELLULITIS OF RIGHT LOWER LIMB SNOMED Code(s): 12754200183476401 (4) Diabetic foot ulcer Current Visit: No Status: Acute Code(s): E11.621 - TYPE 2 DIABETES MELLITUS WITH FOOT ULCER; L97.509 - NON-PRESSURE CHRONIC ULCER OTH PRT UNSP FOOT W UNSP SEVERITY SNOMED Code(s): 355846767 Plan: 1patient presented to hospital increasing swelling redness to the right foot plantar aspect and this patient did have a previous right third toe amputation and recently did have debridement of the third metatarsal head with a culture positive for staph epi Enterococcus and Flagyl completed a 6-week course of IV followed by oral antibiotics now with worsening swelling redness to the area concerning for recurrent abscess and the need to be surgically drained 2patient has been evaluated by vascular surgery is status post right transmetatarsal amputation 3-positive blood culture MSSA more likely related to right diabetic foot infection, repeat blood cultures currently pending 4patient to continue with cefazolin patient did get a midline once his repeat blood culture negative at 72 hour at the bedside questions were answered Dictation was produced using [employer] dictation software. please excuse any grammatical, word or spelling errors. Time with Patient: Less than 30
[2023-05-04 17:03] LABS: Glucose,Whole Blood 143 mg/dL (70-110)
--- NOTE | 2023-05-04 17:08 | PN ---
PROGRESS NOTE DATE OF SERVICE: 05/04/2023 SUBJECTIVE: This is a 58-year-old gentleman, who was admitted with MSSA sepsis. He is being closely monitored. The patient had transmetatarsal amputation. No chest pain. No palpitation. PHYSICAL EXAMINATION: VITAL SIGNS: Pulse 71, blood pressure 110/70, respirations 18. HEENT: Conjunctivae are normal. NECK: No jugular venous distention. CARDIOVASCULAR: S1 and S2 muffled. RESPIRATORY: Breath sounds diminished at the bases. ABDOMEN: Soft. LEGS: Status post surgery. LABORATORY DATA: Hemoglobin 9.3. Rest of the labs are noted. ASSESSMENT: 1. Methicillin-susceptible Staphylococcus aureus sepsis present on admission. 2. Right foot diabetic ulcer with cellulitis, failure of outpatient treatment with fever with nonhealing wound of the right foot plantar surface, status post right transmetatarsal amputation. 3. Hyponatremia. 4. Diabetes mellitus, type 2. 5. Hypertension. 6. Multiple medical issues. RECOMMENDATIONS: Recommend to continue current medical management. Continue with antibiotics. Possible PICC line and outpatient antibiotics. Closely follow with Infectious Disease. Possible discharge in the next 24 hours. MMODL / IJN: [id number] /
[2023-05-04 20:30] LABS: Glucose,Whole Blood 258 mg/dL (70-110)
[2023-05-04] MEDS: ATORVASTATIN 20 MG TAB PO SCH (21:58)
[2023-05-05 07:35] LABS: Glucose,Whole Blood 127 mg/dL (70-110)
[2023-05-05] MEDS: INSULIN ASPART (NovoLOG) 100 UNIT/ML VIAL SQ SCH ×2 (07:40→12:50)
[2023-05-05] MEDS: metFORMIN 500 MG TAB PO SCH (08:05)
[2023-05-05] MEDS: CLOPIDOGREL 75 MG TAB PO SCH (08:05)
[2023-05-05] MEDS: INSULIN DETEMIR (LEVEMIR) 100 UNIT/ML SYR SQ SCH (08:05)
[2023-05-05] MEDS: metroNIDAZOLE 500 MG TAB PO SCH ×2 (08:06→15:17)
[2023-05-05] MEDS: SPIRONOLACTONE 25 MG TAB PO SCH (08:06)
[2023-05-05] MEDS: DAPAGLIFLOZIN PROPANEDIOL 10 MG TABLET PO SCH (08:06)
[2023-05-05] MEDS: hydrALAZINE HCL 25 MG TAB PO SCH (08:42)
[2023-05-05] MEDS: carvediloL 12.5 MG TAB PO SCH (08:42)
[2023-05-05] MEDS: LOSARTAN 50 MG TAB PO SCH (08:42)
[2023-05-05] MEDS: FUROSEMIDE 40 MG TAB PO SCH (08:42)
[2023-05-05] MEDS: ASPIRIN 81 MG PO SCH (09:00)
[2023-05-05 09:18] VITALS: BMI 29.7
[2023-05-05] MEDS: PANTOPRAZOLE 40 MG/10 ML VIAL IVP SCH (09:31)
[2023-05-05] MEDS: HEPARIN SODIUM,PORCINE 5,000 UNIT/ML 1 ML VIAL SQ SCH (10:47)
--- NOTE | 2023-05-05 10:54 | P.PN ---
Subjective Progress Note Date: 05/05/23 Principal diagnosis: Osteomyelitis Patient seen and examined today as a follow-up. He is status post right TMA. He has been up and uses his knee scooter. He has been afebrile. Pain has been well managed. Salisbury drain in place. Objective - Vital Signs Vital signs: Vital Signs Temp 98.7 F 05/05/23 07:23 Pulse 59 L 05/05/23 07:23 Resp 16 05/05/23 07:23 BP 129/72 05/05/23 07:23 Pulse Ox 98 05/05/23 07:23 FiO2 Intake & Output 05/04/23 05/05/23 05/05/23 18:59 06:59 18:59 Intake Total 640 Balance 640 Weight 119.748 kg Intake: Intake, IV Titration 100 Amount ceFAZolin 2 gm In Sodium 100 Chloride 0.9% 50 ml @ 100 mls/hr IVPB Q8HR [facility] Rx# :[id number] Oral 540 Other: Voiding Method Toilet # Voids 2 2 - Exam General appearance: The patient is alert, oriented, appears in no acute distress. HET: Head is normocephalic and atraumatic. Pupils are equal and reactive. Neck: Supple. Extremities: Right TMA site well approximated with burke, a Salisbury drain is half Out therefore was removed. Surrounding tissue pink and warm. There was only small amount of serosanguineous drainage and dressing. Neurological: No focal deficits. - Labs CBC & Chem 7: 05/04/23 06:48 05/04/23 06:48 Labs: Abnormal Lab Results - Last 24 Hours (Table) 05/04/23 05/04/23 05/04/23 Range/Units 06:48 12:05 17:00 Carbon Dioxide 21 L (22-30) mmol/L Glucose 129 H (74-99) mg/dL POC Glucose (mg/dL) 183 H 143 H (70-110) mg/dL Calcium 8.3 L (8.4-10.2) mg/dL 05/04/23 05/05/23 Range/Units 20:28 07:25 Carbon Dioxide (22-30) mmol/L Glucose (74-99) mg/dL POC Glucose (mg/dL) 258 H 127 H (70-110) mg/dL Calcium (8.4-10.2) mg/dL Microbiology - Last 24 Hours (Table) 05/03/23 15:12 Blood Culture - Preliminary Blood 05/01/23 08:45 Blood Culture - Preliminary Blood 05/02/23 05:51 Blood Culture - Preliminary Blood Assessment and Plan Assessment: 1. Osteomyelitis of right third metatarsal head status post transmetatarsal amputation 2. Chronic diabetic right foot ulcer 3. Diabetes mellitus 4. Bacteremia Plan: 1. Continue symptomatic and supportive care 2. Continue with pain management, encourage use of oral analgesics 3. Recommend postop shoe for right foot 4. Heel walk only on right foot 5. Daily dressing change with 4 x 4, Kerlix 6. Salisbury drain removed 7. Once otherwise medically cleared, patient is stable for discharge from vascular surgery. We will sign off at this time. The impression and plan of care has been dictated as directed. Dr Heard I performed a history and examination of this patient, discussed the same with the dictator. I agree with the dictator's note ,documented as a scribe. Any additional findings or plans will be noted.
[2023-05-05 12:16] LABS: Glucose,Whole Blood 143 mg/dL (70-110)
[2023-05-05 12:48] VITALS: BP 143/85; PULSE 62; RESP 18; TEMP 99.1
--- NOTE | 2023-05-06 17:06 | P.PN ---
Subjective Progress Note Date: 05/05/23 Principal diagnosis: Reason for follow-up is diabetic foot infection and bacteremia Patient is a 58-year-old male with a past medical history significant for diabetes mellitus hypertension reflux did have a history of recurrent diabetic foot infection recently completed course of IV vancomycin and Flagyl presenting to the hospital with increasing swelling redness to the right foot concerning for abscess. Patient is status post right transmetatarsal amputation completed on 05/01/2023 On today's evaluation and that is 05/05/2023 the patient remains to be afebrile, the patient is breathing comfortably on room air and no need for supplemental oxygen, the patient denies having any chest pain denies any cough or sputum production, patient denies any abdominal pain no nausea vomiting or any diarrhea,, the patient denies pain to the right foot transmetatarsal amputation site has decreased in intensity Patient did have a white count of 4.5, creatinine 0.92 as of 05/04/2023 blood culture positive for MSSA, repeat blood cultures so far negative Objective - Vital Signs Vital signs: Vital Signs Temp 99.1 F 05/05/23 12:05 Pulse 62 05/05/23 12:05 Resp 18 05/05/23 12:05 BP 143/85 05/05/23 12:05 Pulse Ox 98 05/05/23 12:05 FiO2 Intake & Output 05/05/23 05/05/23 05/06/23 06:59 18:59 06:59 Weight 119.748 kg 119.748 kg Other: Voiding Method Toilet # Voids 2 - Exam GENERAL DESCRIPTION: A middle-aged male lying in bed in no distress RESPIRATORY SYSTEM: Unlabored breathing , clear to auscultation anteriorly HEART: S1 S2 regular rate and rhythm , ABDOMEN: Soft , no tenderness EXTREMITIES: Right foot transmetatarsal amputation site minimal swelling and drainage - Labs CBC & Chem 7: 05/04/23 06:48 05/04/23 06:48 Labs: Abnormal Lab Results - Last 24 Hours (Table) 05/05/23 05/05/23 Range/Units 07:25 12:07 POC Glucose (mg/dL) 127 H 143 H (70-110) mg/dL Microbiology - Last 24 Hours (Table) 05/02/23 05:51 Blood Culture - Preliminary Blood 04/30/23 06:32 Blood Culture - Final Blood 05/03/23 15:12 Blood Culture - Preliminary Blood 05/01/23 08:45 Blood Culture - Preliminary Blood Assessment and Plan (1) Osteomyelitis Status: Acute Code(s): M86.9 - OSTEOMYELITIS, UNSPECIFIED SNOMED Code(s): 40867260 (2) Bacteremia Status: Acute Code(s): R78.81 - BACTEREMIA SNOMED Code(s): 9764607 (3) Cellulitis of right foot Status: Acute Priority: Medium Code(s): L03.115 - CELLULITIS OF RIGHT LOWER LIMB SNOMED Code(s): 76851152057168820 (4) Diabetic foot ulcer Status: Acute Code(s): E11.621 - TYPE 2 DIABETES MELLITUS WITH FOOT ULCER; L97.509 - NON-PRESSURE CHRONIC ULCER OTH PRT UNSP FOOT W UNSP SEVERITY SNOMED Code(s): 703924452 Plan: 1patient presented to hospital increasing swelling redness to the right foot plantar aspect and this patient did have a previous right third toe amputation and recently did have debridement of the third metatarsal head with a culture positive for staph epi Enterococcus and Flagyl completed a 6-week course of IV followed by oral antibiotics now with worsening swelling redness to the area concerning for recurrent abscess and the need to be surgically drained 2patient has been evaluated by vascular surgery is status post right transmetatarsal amputation 3-positive blood culture MSSA more likely related to right diabetic foot infection, repeat blood cultures currently negative 4plan is for a two-week course of cefazolin 2 g every 8 hours along with oral Flagyl and close outpatient follow-up this were discussed with the CHEMISTRY SPECIALIST for admitting team working on discharge Dictation was produced using [employer] dictation software. please excuse any grammatical, word or spelling errors. Time with Patient: Less than 30
--- NOTE | 2023-05-07 09:42 | P.DS ---
Providers Date of admission: 04/28/23 20:07 Expected date of discharge: 05/05/23 Attending physician: Gia Kent Consults: 04/28/23 20:03 Consult Physician Urgent Consulting Provider: Clarence Tavares Consult Reason/Comments: Osteomyelitis of the third metatarsal with overlying cellulitis Do you want consulting provider notified?: Yes 04/29/23 14:22 Consult Physician Routine Consulting Provider: Aletha Heard Consult Reason/Comments: right foot cellulitis, recent amputation Do you want consulting provider notified?: Yes Primary care physician: Jocelynn Castle Hospital Course: Final diagnosis MSSA sepsis secondary to right foot diabetic ulcer with cellulitis, present on admission Right foot diabetic ulcer with cellulitis with failure of outpatient treatment with fever and nonhealing wound of the right foot plantar surface status post right transmetatarsal amputation Hyponatremia, improved Diabetes mellitus, type II uncontrolled with hyperglycemia Hypertension GERD Previous history of MRSA Former smoker GI prophylaxis DVT prophylaxis Full code Discharge disposition Patient is being discharged in a stable condition with guarded prognosis to home with home care. Patient will follow-up with Dr. Cabezas in the outpatient setting upon discharge. Patient is to continue with IV antibiotics in the form of cefazolin 3 times daily for 2 weeks and close outpatient follow-up with infectious disease as well as vascular surgery as scheduled. Total time taken is greater than 35 minutes. Hospital course This is a 58-year-old male who was recently admitted with right foot cellulitis and infection with MSSA positive cultures being closely monitored. Patient was continued on IV antibiotics with infectious disease along with vascular surgery evaluation underwent right transmetatarsal amputation and has been cleared for outpatient follow-up by vascular surgery. Patient with history of osteomyelitis and recurrent wounds will be receiving a midline per ID recommendations and will continue on cefazolin 2 g 3 times daily for the next 2 weeks and close outpatient follow-up. Patient to continue local wound care and elevating lower extremity while at rest. Patient with significant diabetes recommend outpatient endocrine evaluation for tighter glycemic control. Patient has been cleared by consultations and patient is adamant about going home today. Please refer to the consultation notes for further HPI. Currently no reports of chest pain, shortness of breath, or palpitations. Patient is afebrile. No reports of nausea or vomiting and patient is tolerating diet. Patient will be discharged home today. Guarded prognosis and high risk for readmissions given patient's significant comorbidities and uncontrolled diabetes. Physical exam: Gen: This is a 58 from male who is awake, alert and oriented 3, well-developed, well-nourished HEENT: Head is atraumatic, normocephalic. Pupils equal, round. Sclerae is anicteric. NECK: Supple. No JVD. No lymphadenopathy. No thyromegaly. LUNGS: Clear to auscultation. No wheezes or rhonchi. No intercostal retractions. HEART: Regular rate and rhythm. No murmur. ABDOMEN: Soft. Bowel sounds are present. No masses. No tenderness. EXTREMITIES: No pedal edema. No calf tenderness. Right lower extremity dressing is dry and intact NEUROLOGICAL: Patient is awake, alert and oriented x3. Cranial nerves 2 through 12 are grossly intact. Please refer to medication reconciliation sheet for a list of medications. The impression and plan of care has been dictated by Nurse Angela Pinon as directed. Dr. Donte MD I have performed a history and examination and MDM of this patient, discussed the same with the dictator, and agree with the dictator's assessment and plan as written ,documented as a scribe. Based on total visit time, I have performed more than 50% of the visit. Patient Condition at Discharge: Fair Plan - Discharge Summary Discharge Rx Participant: No New Discharge Prescriptions: New carvediloL [Coreg*] 12.5 mg PO BID-W/MEALS #60 tab metroNIDAZOLE [Flagyl] 500 mg PO TID 14 Days #42 tab ceFAZolin [Kefzol] 2,000 mg IVPB Q8HR 14 Days #42 each Acetaminophen Tab [Tylenol] 1,000 mg PO Q6HR PRN tab PRN Reason: Fever And/ Or Pain Continue hydrALAZINE HCL [Apresoline] 25 mg PO BID #90 tab Atorvastatin [Lipitor] 20 mg PO HS #30 tab Clopidogrel [Plavix] 75 mg PO DAILY #30 tab metFORMIN HCL 1,000 mg PO BID Olmesartan Medoxomil [Benicar] 40 mg PO DAILY Dapagliflozin Propanediol [Farxiga] 10 mg PO DAILY #30 tab Spironolactone [Aldactone] 25 mg PO DAILY #30 tab Aspirin 81 mg PO DAILY #30 tab Furosemide [Lasix] 40 mg PO DAILY Discontinued carvediloL [Coreg] 25 mg PO BID Discharge Medication List Dapagliflozin Propanediol [Farxiga] 10 mg PO DAILY #30 tab 12/10/22 [Rx] Aspirin 81 mg PO DAILY #30 tab 12/11/22 [Rx] Atorvastatin [Lipitor] 20 mg PO HS #30 tab 12/11/22 [Rx] Clopidogrel [Plavix] 75 mg PO DAILY #30 tab 12/11/22 [Rx] Spironolactone [Aldactone] 25 mg PO DAILY #30 tab 12/11/22 [Rx] hydrALAZINE HCL [Apresoline] 25 mg PO BID #90 tab 12/11/22 [Rx] Furosemide [Lasix] 40 mg PO DAILY 02/05/23 [History] Olmesartan Medoxomil [Benicar] 40 mg PO DAILY 04/28/23 [History] metFORMIN HCL 1,000 mg PO BID 04/28/23 [History] Acetaminophen Tab [Tylenol] 1,000 mg PO Q6HR PRN tab 05/05/23 [Rx] carvediloL [Coreg*] 12.5 mg PO BID-W/MEALS #60 tab 05/05/23 [Rx] ceFAZolin [Kefzol] 2,000 mg IVPB Q8HR 14 Days #42 each 05/05/23 [Rx] metroNIDAZOLE [Flagyl] 500 mg PO TID 14 Days #42 tab 05/05/23 [Rx] Follow up Appointment(s)/Referral(s): Corrine Cabezas MD [Primary Care Provider] - 1-2 days Wilmer Sandoval, [Doctor of Osteopathic Medicine] - 05/22/23 10:30 am [facility], [NON-STAFF] - 1 Week ([facility] will call you to arrange a visit) [facility] [NON-STAFF] - 1 Week ([facility] will provide/deliver your antibiotic) Clarence Tavares MD [STAFF PHYSICIAN] - 1 Week Patient Instructions/Handouts: Metronidazole (By mouth), Cefazolin (By injection), Carvedilol (By mouth), Transmetatarsal Amputation (DC), Surgical Site Infections (DC), How to Care for Your Midline Catheter (DC), Acute Wounds (DC), Midline Catheter (DC) Activity/Diet/Wound Care/Special Instructions: Activity Limited until follow-up Follow-up with primary care provider on discharge Follow-up with vascular surgery in 1-2 weeks Follow-up with infectious disease Continue taking medications as prescribed Continue IV antibiotics for 2 weeks per ID recommendations Continue local wound care Discharge Disposition: HOME WITH HOME HEALTH SERVICES
== END 2023-05-05 17:42 | disposition home health service (06) | DRG 854 ==
LOC: EC 17:02 → 5NMEDONC 20:07
PROVIDERS: ADMIT Hospitalist; ATTEND Hospitalist
PROC: 0Y6M0ZD Detachment at Right Foot, Partial 4th Ray, Open Approach (ICD-10-PCS; 2023-05-01)
PROC: 0Y6M0ZB Detachment at Right Foot, Partial 2nd Ray, Open Approach (ICD-10-PCS; 2023-05-01)
PROC: 0Y6M0Z9 Detachment at Right Foot, Partial 1st Ray, Open Approach (ICD-10-PCS; 2023-05-01)
PROC: 0Y6M0Z9 Detachment at Right Foot, Partial 1st Ray, Open Approach (ICD-10-PCS; principal; 2023-05-01 07:30)
DX: A41.02 Sepsis due to Methicillin resistant Staphylococcus aureus (principal); D61.818 Other pancytopenia; E87.1 Hypo-osmolality and hyponatremia; L03.115 Cellulitis of right lower limb; M86.8X7 Other osteomyelitis, ankle and foot; L97.519 Non-pressure chronic ulcer of other part of right foot with unspecified severity; E11.628 Type 2 diabetes mellitus with other skin complications; E11.42 Type 2 diabetes mellitus with diabetic polyneuropathy; E11.69 Type 2 diabetes mellitus with other specified complication; E11.621 Type 2 diabetes mellitus with foot ulcer; E11.65 Type 2 diabetes mellitus with hyperglycemia; I10 Essential (primary) hypertension; K21.9 Gastro-esophageal reflux disease without esophagitis; B95.61 Methicillin susceptible Staphylococcus aureus infection as the cause of diseases classified elsewhere; Z20.822 Contact with and (suspected) exposure to COVID-19; Z89.421 Acquired absence of other right toe(s); Z86.14 Personal history of Methicillin resistant Staphylococcus aureus infection; Z79.899 Other long term (current) drug therapy; Z79.84 Long term (current) use of oral hypoglycemic drugs; Z79.82 Long term (current) use of aspirin; Z79.02 Long term (current) use of antithrombotics/antiplatelets; Z88.8 Allergy status to other drugs, medicaments and biological substances; Z88.0 Allergy status to penicillin; Z87.891 Personal history of nicotine dependence
CPT/HCPCS: 36410; 36415; 76937; 78315; 80048; 80053; 80202; 82565; 83036; 83605; 85025; 85652; 86140; 87040; 87070; 87075; 87077; 87186; 87205; 87636; 93923; 96361; 96365; 96366; 96367; 96375; 99285

== ENCOUNTER 2023-05-09 18:49 | Emergency (ER) | payer BC ==
[2023-05-09 19:18] VITALS: RESP 16
[2023-05-09] MEDS ORDERED: ALTEPLASE 2 MG VIAL (CATHFLO) IV STA (19:54)
--- NOTE | 2023-05-09 20:54 | ED ---
General Adult HPI - General Chief complaint: Recheck/Abnormal Lab/Rx Stated complaint: Recheck Time Seen by Provider: 05/09/23 19:25 Source: patient, family, RN notes reviewed Mode of arrival: ambulatory Limitations: no limitations - History of Present Illness Initial comments: This is a 58-year-old male with past medical history significant for hypertension, diabetes mellitus presents the emergency department with a chief complaint of access problem. Patient reports that he had a midline placed at this facility 05/05/2023. She reports that he has attempted to flush it multiple times over the week however he is meeting resistance that has progressively gotten worse. He denies any redness or pain at the site. Patient is currently receiving antibiotics for recent diagnosis of osteomyelitis to his right lower extremity - Related Data Home Medications Medication Instructions Recorded Confirmed Furosemide [Lasix] 40 mg PO DAILY 02/05/23 04/28/23 Olmesartan Medoxomil [Benicar] 40 mg PO DAILY 04/28/23 04/28/23 metFORMIN HCL 1,000 mg PO BID 04/28/23 04/28/23 Previous Rx's Medication Instructions Recorded Dapagliflozin Propanediol [Farxiga] 10 mg PO DAILY #30 tab 12/10/22 Aspirin 81 mg PO DAILY #30 tab 12/11/22 Atorvastatin [Lipitor] 20 mg PO HS #30 tab 12/11/22 Clopidogrel [Plavix] 75 mg PO DAILY #30 tab 12/11/22 Spironolactone [Aldactone] 25 mg PO DAILY #30 tab 12/11/22 hydrALAZINE HCL [Apresoline] 25 mg PO BID #90 tab 12/11/22 Acetaminophen Tab [Tylenol] 1,000 mg PO Q6HR PRN tab 05/05/23 carvediloL [Coreg*] 12.5 mg PO BID-W/MEALS #60 tab 05/05/23 ceFAZolin [Kefzol] 2,000 mg IVPB Q8HR 14 Days #42 each 05/05/23 metroNIDAZOLE [Flagyl] 500 mg PO TID 14 Days #42 tab 05/05/23 Allergies Allergy/AdvReac Type Severity Reaction Status Date / Time levofloxacin [From Levaquin] Allergy Swelling, Verified 04/28/23 20:51 RASH Penicillins Allergy Unknown Verified 04/28/23 20:51 Childhood Review of Systems ROS Statement: Those systems with pertinent positive or pertinent negative responses have been documented in the HPI. ROS Other: All systems not noted in ROS Statement are negative. Past Medical History Past Medical History: Diabetes Mellitus, GERD/Reflux, Hypertension Additional Past Medical History / Comment(s): osteomyelitis and pain left foot, stepped on kristen nail October 2018,hx neuropathy History of Any Multi-Drug Resistant Organisms: MRSA Date of last positivie culture/infection: march 2022 MDRO Source:: toe Past Surgical History: Tonsillectomy Additional Past Surgical History / Comment(s): endoscopy, middle toe rt foot removed ,lft 2nd toe tip removed Past Anesthesia/Blood Transfusion Reactions: No Reported Reaction Past Psychological History: No Psychological Hx Reported Smoking Status: Former smoker Past Alcohol Use History: None Reported Past Drug Use History: None Reported - Past Family History Mother Family Medical History: Cancer Additional Family Medical History / Comment(s): breast cancer Father Family Medical History: Cancer Additional Family Medical History / Comment(s): lung cancer Sister(s) Family Medical History: Cancer Additional Family Medical History / Comment(s): lung cancer General Exam - General Exam Comments Initial Comments: General: Alert, in no acute distress Head: atraumatic normocephalic. Eyes PERRL, EOMI intact, mucous membranes moist Respiratory: Lungs clear to auscultation bilaterally Cardiovascular: Regular rate and rhythm Abdominal: Soft without guarding or rebound Extremities: Normal inspection with full range of motion and normal capillary refill, midline to left upper arm without redness, tenderness. 2+ radial pulses. Neuroogic: alert and oriented 3, CN II-XII intact, able to ambulate with steady gait Skin: warm dry and intact with normal color Limitations: no limitations Course Vital Signs 05/09/23 05/09/23 19:04 21:00 Temperature 98 F 98.4 F Pulse Rate 84 80 Respiratory 16 16 Rate Blood Pressure 149/83 144/80 O2 Sat by Pulse 98 98 Oximetry - Reevaluation(s) Reevaluation #1: 05/09/23 20:54 Provider at bedside to witness flushing of midline.. Reevaluation #2: 05/09/23 21:18 Patient reevaluated. Patient midline continues to not flush. Patient offered admission and was refusing. Patient states that "I will just come here every [address]. I will not stay in the hospital." Medical Decision Making - Medical Decision Making Was pt. sent in by a medical professional or institution (LUIS Quintero, SUPERVISORY IT SPECIALIST, urgent care, hospital, or [facility]...) When possible be specific @ -[No] Did you speak to anyone other than the patient for history (EMS, parent, family, police, friend...)? What history was obtained from this source @ -[No] Did you review nursing and triage notes (agree or disagree)? Why? @ -[I reviewed and agree with nursing and triage notes] Were old charts reviewed (outside hosp., previous admission, EMS record, old EKG, old radiological studies, urgent care reports/EKG's, [facility] records)? Report findings @ -Yes from 04/29 Differential Diagnosis (chest pain, altered mental status, abdominal pain women, abdominal pain men, vaginal bleeding, weakness, fever, dyspnea, syncope, headache, dizziness, GI bleed, back pain, seizure, CVA, palpatations, mental health, musculoskeletal)? @ -[not applicable] EKG interpreted by me (3pts min.). @ -[As above] X-rays interpreted by me (1pt min.). @ -[None done] CT interpreted by me (1pt min.). @ -[None done] U/S interpreted by me (1pt. min.). @ -[None done] What testing was considered but not performed or refused? (CT, X-rays, U/S, labs)? Why? @ -[None] What meds were considered but not given or refused? Why? @ -[None] Did you discuss the management of the patient with other professionals (kirit arroyo i.e. LUIS Quintero, SUPERVISORY IT SPECIALIST, lab, RT, psych nurse, secondary social studies teacher, pocketed spring machine operator, teacher, crime prevention police officer, transplant case manager)? Give summary @ -[No] Was smoking cessation discussed for >3mins.? @ -[No] Was critical care preformed (if so, how long)? @ -[No] Were there social determinants of health that impacted care today? How? (Homelessness, low income, unemployed, alcoholism, drug addiction, transportation, low edu. Level, literacy, decrease access to med. care, [facility], rehab)? @ -[No] Was there de-escalation of care discussed even if they declined (Discuss DNR or withdrawal of care, Hospice)? DNR status @ -[No] What co-morbidities impacted this encounter? (DM, HTN, Smoking, COPD, CAD, Cancer, CVA, ARF, Chemo, Hep., AIDS, mental health diagnosis, sleep apnea, morbid obesity)? @ -[None] Was patient admitted / discharged? Hospital course, mention meds given and route, prescriptions, significant lab abnormalities, going to OR and other pertinent info. @Discharged. This is a 58-year-old male who presents the emergency department with midline access problem. Patient's midline at left upper arm unable to flush. Multiple attempts to flush were made without success. Patient had midline removed. She'll educated that he is unable to have per for IV upon discharge. Patient was giving IM cefazolin. Recommend close follow-up with Dr. Tavares on Friday. Upon discharge patient admtis that he will come to the ER every 6 hours for ABX infusions. Patient was discharged in stable condition. Return precautions discussed at length. Case is discussed with HAILEY Loredo who agrees with plan of care Undiagnosed new problem with uncertain prognosis? @ -[No] Drug Therapy requiring intensive monitoring for toxicity (Heparin, Nitro, Insulin, Cardizem)? @ -[No] Were any procedures done? @ -[No] Diagnosis/symptom? @ -Vascular access problem Acute, or Chronic, or Acute on Chronic? @ -[Acute Uncomplicated (without systemic symptoms) or Complicated (systemic symptoms)? @ -Uncomplicated Side effects of treatment? @ -[No] Exacerbation, Progression, or Severe Exacerbation? @ -[No] Poses a threat to life or bodily function? How? (Chest pain, [place], NH, pneumonia, PE, COPD, DKA, ARF, appy, cholecystitis, CVA, Diverticulitis, Homicidal, Suicidal, threat to staff... and all critical care pts) @ -Low likelihood Disposition Clinical Impression: Problem with vascular access Disposition: HOME SELF-CARE Condition: Stable Additional Instructions: Please return to the emergency department for antibiotics Please follow-up with Dr. Tavares on Friday05/12/2023 Please return if worsening symptoms of pain, Is patient prescribed a controlled substance at d/c from ED?: No Referrals: Corrine Cabezas MD [Primary Care Provider] - 1-2 days Time of Disposition: 21:20
[2023-05-09] MEDS ORDERED: ceFAZolin 1,000 MG VIAL (IM USE) IM STA (21:17)
[2023-05-09 21:58] VITALS: BP 144/80; PULSE 80; TEMP 98.4
== END 2023-05-09 21:52 | disposition home or self-care (01) ==
LOC: EC 18:49
DX: T82.598A Other mechanical complication of other cardiac and vascular devices and implants, initial encounter (principal); E11.9 Type 2 diabetes mellitus without complications; I10 Essential (primary) hypertension; Z87.891 Personal history of nicotine dependence; Z88.0 Allergy status to penicillin; Z79.899 Other long term (current) drug therapy
CPT/HCPCS: 99283; 96372; J0690

== ENCOUNTER 2023-05-10 06:18 | Emergency (ER) | payer BC ==
[2023-05-10 06:43] VITALS: BP 129/83; PULSE 80; RESP 18; TEMP 98
--- NOTE | 2023-05-10 06:48 | ED ---
Recheck HPI - General Chief Complaint: Recheck/Abnormal Lab/Rx Stated Complaint: abn labs Time Seen by Provider: 05/10/23 06:43 Source: patient, RN notes reviewed Mode of arrival: ambulatory Limitations: no limitations - History of Present Illness Initial Comments: This is a 58-year-old male who presents to the emergency department for IV antibiotics. He has osteomyelitis of the right foot and is currently receiving Kefzol every 6 hours at home through a midline. He was evaluated here yesterday due to problems accessing his midline. They were unable to flush his midline and he came here for a dose of IV antibiotics. He declined admission and had planned on returning to the emergency department every 6 hours if needed to receive his medication. He otherwise denies any complaints. - Related Data Home Medications Medication Instructions Recorded Confirmed Furosemide [Lasix] 40 mg PO DAILY 02/05/23 04/28/23 Olmesartan Medoxomil [Benicar] 40 mg PO DAILY 04/28/23 04/28/23 metFORMIN HCL 1,000 mg PO BID 04/28/23 04/28/23 Previous Rx's Medication Instructions Recorded Dapagliflozin Propanediol [Farxiga] 10 mg PO DAILY #30 tab 12/10/22 Aspirin 81 mg PO DAILY #30 tab 12/11/22 Atorvastatin [Lipitor] 20 mg PO HS #30 tab 12/11/22 Clopidogrel [Plavix] 75 mg PO DAILY #30 tab 12/11/22 Spironolactone [Aldactone] 25 mg PO DAILY #30 tab 12/11/22 hydrALAZINE HCL [Apresoline] 25 mg PO BID #90 tab 12/11/22 Acetaminophen Tab [Tylenol] 1,000 mg PO Q6HR PRN tab 05/05/23 carvediloL [Coreg*] 12.5 mg PO BID-W/MEALS #60 tab 05/05/23 ceFAZolin [Kefzol] 2,000 mg IVPB Q8HR 14 Days #42 each 05/05/23 metroNIDAZOLE [Flagyl] 500 mg PO TID 14 Days #42 tab 05/05/23 Allergies Allergy/AdvReac Type Severity Reaction Status Date / Time levofloxacin [From Levaquin] Allergy Swelling, Verified 04/28/23 20:51 RASH Penicillins Allergy Unknown Verified 04/28/23 20:51 Childhood Review of Systems ROS Statement: Those systems with pertinent positive or pertinent negative responses have been documented in the HPI. ROS Other: All systems not noted in ROS Statement are negative. Past Medical History Past Medical History: Diabetes Mellitus, GERD/Reflux, Hypertension Additional Past Medical History / Comment(s): osteomyelitis and pain left foot, stepped on kristen nail October 2018,hx neuropathy History of Any Multi-Drug Resistant Organisms: MRSA Date of last positivie culture/infection: march 2022 MDRO Source:: toe Past Surgical History: Tonsillectomy Additional Past Surgical History / Comment(s): endoscopy, middle toe rt foot removed ,lft 2nd toe tip removed Past Anesthesia/Blood Transfusion Reactions: No Reported Reaction Past Psychological History: No Psychological Hx Reported Smoking Status: Former smoker Past Alcohol Use History: None Reported Past Drug Use History: None Reported - Past Family History Mother Family Medical History: Cancer Additional Family Medical History / Comment(s): breast cancer Father Family Medical History: Cancer Additional Family Medical History / Comment(s): lung cancer Sister(s) Family Medical History: Cancer Additional Family Medical History / Comment(s): lung cancer General Exam Limitations: no limitations General appearance: alert, in no apparent distress Head exam: Present: atraumatic, normocephalic, normal inspection Respiratory exam: Present: normal lung sounds bilaterally. Absent: respiratory distress, wheezes, rales, rhonchi, stridor Cardiovascular Exam: Present: regular rate, normal rhythm, normal heart sounds. Absent: systolic murmur, diastolic murmur, rubs, gallop, clicks Neurological exam: Present: alert, oriented X3, CN II-XII intact Psychiatric exam: Present: normal affect, normal mood Skin exam: Present: warm, dry, intact, normal color. Absent: rash Course Vital Signs 05/10/23 06:39 Temperature 98 F Pulse Rate 80 Respiratory 18 Rate Blood Pressure 129/83 O2 Sat by Pulse 95 Oximetry Medical Decision Making - Medical Decision Making This is a 58-year-old male who presents to the emergency department for IV antibiotics. Was pt. sent in by a medical professional or institution? @ -No Did you speak to anyone other than the patient for history? @ -No Did you review nursing and triage notes? @ -Yes, and I agree, it is accurate with regards to the patient's symptoms. Were old charts reviewed? @ -No Differential Diagnosis? @ -Not applicable EKG interpreted by me (3pts min.)? @ -Not obtained X-rays interpreted by me (1pt min.)? @ -Not obtained CT interpreted by me (1pt min.)? @ -Not obtained U/S interpreted by me (1pt. min.)? @ -Not obtained What testing was considered but not performed? (CT, X-rays, U/S, labs)? Why? @ -None What meds were considered but not given? Why? @ -None Did you discuss the management of the patient with other professionals? @ -No Did you reconcile home meds? @ -No Was smoking cessation discussed for >3mins.? @ -No Was critical care preformed (if so, how long)? @ -No Were there social determinants of health that impacted care today? How? (Homelessness, low income, unemployed, alcoholism, drug addiction, transportation, low edu. Level, literacy, decrease access to med. care, correction, rehab)? @ -No Was there de-escalation of care discussed even if they declined? (Discuss DNR or withdrawal of care, Hospice)? @ -No What co-morbidities impacted this encounter? (DM, HTN, Smoking, COPD, CAD, Cancer, CVA, Hep., AIDS, mental health diagnosis, sleep apnea, morbid obesity)? @ -Osteomyelitis, DM Was patient admitted / discharged? @ -Discharged. Patient was given his dose of 2g of Kefzol, which his brought with him. Nursing staff called the home care facility. They will come out to his house today to change his midline so he can continue receiving his antibiotics at home, as opposed to having to return to the emergency department every 6 hours. Patient discharged home in stable condition after receiving his IV Kefzol. Undiagnosed new problem with uncertain prognosis? @ -None Drug Therapy requiring intensive monitoring for toxicity (Heparin, Nitro, Insulin, Cardizem)? @ -None Were any procedures done? @ -None Diagnosis/symptom? @ -Osteomyelitis Acute, or Chronic, or Acute on Chronic? @ -Acute Uncomplicated (without systemic symptoms) or Complicated (systemic symptoms)? @ -Uncomplicated Side effects of treatment? @ -None Exacerbation, Progression, or Severe Exacerbation] @ -Stable Poses a threat to life or bodily function? @ -Not at this time Return precautions reviewed in depth, the patient is instructed to return to the emergency department with any new, worsening, or concerning symptoms. Patient verbalized understanding. This case was discussed in detail with the attending ED physician, Dr. Zamora. Presentation, findings, and treatment plan discussed in detail as well. Disposition Clinical Impression: Osteomyelitis Disposition: HOME SELF-CARE Instructions (If sedation given, give patient instructions): Osteomyelitis (ED) Additional Instructions: Return to the emergency department with any new, worsening, or concerning symptoms. Continue to receive your antibiotics as scheduled. Is patient prescribed a controlled substance at d/c from ED?: No Referrals: Corrine Cabezas MD [Primary Care Provider] - 1-2 days
== END 2023-05-10 07:30 | disposition home or self-care (01) ==
LOC: EC 06:18
DX: M86.9 Osteomyelitis, unspecified (principal)
CPT/HCPCS: 99282

== ENCOUNTER 2023-05-13 08:50 | Day surgery (SDC) | payer BC ==
[2023-05-13 09:25] VITALS: PULSE 75; RESP 16; TEMP 98.2
[2023-05-13 09:42] LABS: Basophils # (A) 0.1 k/uL (0-0.2); Basophils % (A) 1 %; Eosinophils # (A) 0.2 k/uL (0-0.7); Eosinophils % (A) 3 %; Lymphocytes # (A) 3.1 k/uL (1.0-4.8); Lymphocytes % (A) 40 %; MCH 30.9 pg (25.0-35.0); MCHC 34.4 g/dL (31.0-37.0); MCV 89.9 fL (80.0-100.0); Mean Platelet Volume 7.6; Monocytes # (A) 0.4 k/uL (0-1.0); Monocytes % (A) 5 %; Neutrophils # (A) 3.9 k/uL (1.3-7.7); Neutrophils % (A) 49 %; Platelet Count 314 k/uL (150-450); RBC 4.12 m/uL (4.30-5.90); RDW 14.8 % (11.5-15.5); WBC 7.9 k/uL (3.8-10.6)
[2023-05-13 09:47] LABS: ALT 29 U/L (4-49); AST 33 U/L (17-59); African American GFR (CKD) >90 (>60 ml/min/1.73 sqM); Albumin 4.2 g/dL (3.5-5.0); Alkaline Phosphatase 97 U/L (38-126); Anion Gap 14 mmol/L; Blood Urea Nitrogen 23 mg/dL (9-20); C Reactive Protein <0.5 mg/dL (<1.0); Calcium 9.1 mg/dL (8.4-10.2); Carbon Dioxide 23 mmol/L (22-30); Chloride 99 mmol/L (98-107); Glucose 173 mg/dL (74-99); HGB 12.7 gm/dL (13.0-17.5); Non-African American GFR(CKD) 81 (>60 ml/min/1.73 sqM); Potassium 4.7 mmol/L (3.5-5.1); Sodium 136 mmol/L (137-145); Total Bilirubin 0.4 mg/dL (0.2-1.3); Total Protein 7.4 g/dL (6.3-8.2)
[2023-05-13 16:34] LABS: Erythrocyte Sedimentation Rate 28 mm/Hr (0-20)
== END 2023-05-13 09:22 | disposition home or self-care (01) ==
LOC: CATHCVL 08:50
PROVIDERS: ATTEND Registered Nurse
DX: L08.9 Local infection of the skin and subcutaneous tissue, unspecified (principal); Z11.52 Encounter for screening for COVID-19; Z88.0 Allergy status to penicillin; Z88.1 Allergy status to other antibiotic agents
CPT/HCPCS: 36410; 76937; 80053; 85652; 85025; 86140; C1751

== ENCOUNTER 2023-09-29 13:39 | Inpatient (IN) | payer BC ==
--- NOTE | 2023-09-29 14:04 | ED ---
General Adult HPI - General Source: patient, RN notes reviewed Mode of arrival: ambulatory Limitations: no limitations <Karel Case - Last Filed: 09/29/23 14:02> - General Source: RN notes reviewed <Tierra Macdonald - Last Filed: 09/29/23 19:12> - General Stated complaint: L foot toe pain-Sent by PCP Time Seen by Provider: 09/29/23 13:57 - History of Present Illness Initial comments: Quick [id number] male presents emergency department from Dr. Tavares's office for evaluation of left foot toe infection. He states that started lifting up his nail that he said toe fungus but states that he was told it was abscess underneath of it. Patient was sent over here for admission by Dr. Tavares. Patient is known diabetic. (Karel Case) 58-year-old male with history of diabetes presents to the emergency department from Dr. Tavares's office with a chief complaint of left toe infection. States that over the past several months he believes he has had a toe fungus. He was evaluated at his PCP today where they informed him that he had an abscess un derneath the toenail and was sent to the ER for admission. 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 He has extensive neuropathy and reports little to no pain of the area. Patient reports he has had cefepime before with no issues. (Tierra Macdonald) - Related Data Home Medications Medication Instructions Recorded Confirmed Furosemide [Lasix] 40 mg PO DAILY 02/05/23 09/29/23 metFORMIN HCL 1,000 mg PO BID 04/28/23 09/29/23 Atorvastatin [Lipitor] 40 mg PO HS 09/29/23 09/29/23 carvediloL [Coreg] 25 mg PO BID 09/29/23 09/29/23 Previous Rx's Medication Instructions Recorded Dapagliflozin Propanediol [Farxiga] 10 mg PO DAILY #30 tab 12/10/22 Aspirin 81 mg PO DAILY #30 tab 12/11/22 Clopidogrel [Plavix] 75 mg PO DAILY #30 tab 12/11/22 Spironolactone [Aldactone] 25 mg PO DAILY #30 tab 12/11/22 hydrALAZINE HCL [Apresoline] 25 mg PO BID #90 tab 12/11/22 Allergies Allergy/AdvReac Type Severity Reaction Status Date / Time levofloxacin [From Levaquin] Allergy Swelling, Verified 09/29/23 18:39 RASH Penicillins Allergy Unknown Verified 09/29/23 18:39 Childhood Review of Systems ROS Other: All systems not noted in ROS Statement are negative. <MadichiloKarel Theron - Last Filed: 09/29/23 14:02> ROS Other: All systems not noted in ROS Statement are negative. <Tierra Macdonald - Last Filed: 09/29/23 19:12> ROS Statement: Those systems with pertinent positive or pertinent negative responses have been documented in the HPI. Past Medical History Past Medical History: Diabetes Mellitus, GERD/Reflux, Hypertension Additional Past Medical History / Comment(s): osteomyelitis and pain left foot, stepped on kristen nail October 2018,hx neuropathy History of Any Multi-Drug Resistant Organisms: MRSA Date of last positivie culture/infection: march 2022 MDRO Source:: toe Past Surgical History: Tonsillectomy Additional Past Surgical History / Comment(s): endoscopy, middle toe rt foot removed ,lft 2nd toe tip removed Past Anesthesia/Blood Transfusion Reactions: No Reported Reaction Past Psychological History: No Psychological Hx Reported Smoking Status: Former smoker Past Alcohol Use History: None Reported Past Drug Use History: None Reported - Past Family History Mother Family Medical History: Cancer Additional Family Medical History / Comment(s): breast cancer Father Family Medical History: Cancer Additional Family Medical History / Comment(s): lung cancer Sister(s) Family Medical History: Cancer Additional Family Medical History / Comment(s): lung cancer <Karel Case - Last Filed: 09/29/23 14:02> General Exam <Karel Case - Last Filed: 09/29/23 14:02> General appearance: alert, in no apparent distress Head exam: Present: atraumatic, normocephalic, normal inspection Eye exam: Present: normal appearance, PERRL, EOMI. Absent: scleral icterus, conjunctival injection, periorbital swelling ENT exam: Present: normal exam, mucous membranes moist Neck exam: Present: normal inspection. Absent: tenderness, meningismus, lymphadenopathy Respiratory exam: Present: normal lung sounds bilaterally. Absent: respiratory distress, wheezes, rales, rhonchi, stridor Cardiovascular Exam: Present: regular rate, normal rhythm, normal heart sounds. Absent: systolic murmur, diastolic murmur, rubs, gallop, clicks Left Ankle exam: Present: normal inspection, full ROM. Absent: tenderness, swelling Foot/Toe exam: Present: full ROM. Absent: normal inspection (Left great toe: Nail is yellowing and thickened with diffuse erosion and ulceration with yellow drainage on distal aspect of toe. There is no fluctuant mass.), tenderness, swelling Neurovascular tendon exam: Absent: pulse deficit <Tierra Macdonald - Last Filed: 09/29/23 19:12> - General Exam Comments Initial Comments: Visual Physical Exam Vital signs reviewed General: Well-appearing, nontoxic, no acute distress. Head: Normocephalic, atraumatic Eyes: PERRLA, EOMI ENT: Airway patent Chest: Nonlabored breathing Skin: No visual rash, normal skin tone Neuro: Alert and oriented 3 Musculoskeletal: No gross abnormalities (Karel Case) Course Vital Signs 09/29/23 09/29/23 14:14 17:40 Temperature 97.5 F L 98.0 F Pulse Rate 77 72 Respiratory 18 18 Rate Blood Pressure 143/94 128/78 O2 Sat by Pulse 99 97 Oximetry Medical Decision Making <Karel Case - Last Filed: 09/29/23 14:02> - Lab Data Result diagrams: 09/29/23 17:10 09/29/23 17:10 <Tierra Macdonald - Last Filed: 09/29/23 19:12> - Medical Decision Making I completed the quick note portion of this chart signed Karel Case PA-C (Karel Case) Was pt. sent in by a medical professional or institution ([facility], [employer], urgent care, hospital, or alf...) When possible be specific @ -Sent by Dr. Tavares Did you speak to anyone other than the patient for history (EMS, parent, family, police, friend...)? What history was obtained from this source @ -[No] Did you review nursing and triage notes (agree or disagree)? Why? @ -[I reviewed and agree with nursing and triage notes] Were old charts reviewed (outside hosp., previous admission, EMS record, old EKG, old radiological studies, urgent care reports/EKG's, alf records)? Report findings @ -[No old charts were reviewed] Differential Diagnosis (chest pain, altered mental status, abdominal pain women, abdominal pain men, vaginal bleeding, weakness, fever, dyspnea, syncope, headache, dizziness, GI bleed, back pain, seizure, CVA, palpatations, mental health, musculoskeletal)? @ -Cellulitis, diabetic ulceration, abscess, Onychomycosis EKG interpreted by me (3pts min.). @ -None X-rays interpreted by me (1pt min.). @ -X-ray negative for osteomyelitis CT interpreted by me (1pt min.). @ -[None done] U/S interpreted by me (1pt. min.). @ -[None done] What testing was considered but not performed or refused? (CT, X-rays, U/S, labs)? Why? @ -[None] What meds were considered but not given or refused? Why? @ -[None] Did you discuss the management of the patient with other professionals (professionals i.e. , PA, HANSARD REPORTER, lab, RT, psych nurse, social sciences chair, retail shift leader, teacher, motor equipment commanding officer, case work aide)? Give summary @ -[No] Was smoking cessation discussed for >3mins.? @ -[No] Was critical care preformed (if so, how long)? @ -[No] Were there social determinants of health that impacted care today? How? (Homelessness, low income, unemployed, alcoholism, drug addiction, transportation, low edu. Level, literacy, decrease access to med. care, penitentiary, rehab)? @ -[No] Was there de-escalation of care discussed even if they declined (Discuss DNR or withdrawal of care, Hospice)? DNR status @ -[No] What co-morbidities impacted this encounter? (DM, HTN, Smoking, COPD, CAD, Cancer, CVA, ARF, Chemo, Hep., AIDS, mental health diagnosis, sleep apnea, morbid obesity)? @ -DM Was patient admitted / discharged? Hospital course, mention meds given and route, prescriptions, significant lab abnormalities, going to OR and other pertinent info. @ -Patient was admitted. Patient was seen and evaluated for left toe infection. Sent by Dr. Tavares. Vitals are stable, patient is afebrile. X-ray negative for osteomyelitis, lab work significant for lactic acid 2.5. Case discussed with Dr. Hernandez who accepted admission. Patient started on IV antibiotics. Undiagnosed new problem with uncertain prognosis? @ -[No] Drug Therapy requiring intensive monitoring for toxicity (Heparin, Nitro, Insulin, Cardizem)? @ -[No] Were any procedures done? @ -[No] Diagnosis/symptom? @ -Left great toe cellulitis Acute, or Chronic, or Acute on Chronic? @ -Acute Uncomplicated (without systemic symptoms) or Complicated (systemic symptoms)? @ -Uncomplicated Side effects of treatment? @ -[No] Exacerbation, Progression, or Severe Exacerbation? @ -[No] Poses a threat to life or bodily function? How? (Chest pain, USA, DE, pneumonia, PE, COPD, DKA, ARF, appy, cholecystitis, CVA, Diverticulitis, Homicidal, Suicidal, threat to staff... and all critical care pts) @ -[No] (Tierra Macdonald) - Lab Data Lab Results 09/29/23 09/29/23 09/29/23 Range/Units 17:10 17:10 17:10 WBC 7.2 (3.8-10.6) k/uL RBC 4.78 (4.30-5.90) m/uL Hgb 14.5 (13.0-17.5) gm/dL Hct 42.5 (39.0-53.0) % MCV 88.9 (80.0-100.0) fL MCH 30.5 (25.0-35.0) pg MCHC 34.2 (31.0-37.0) g/dL RDW 12.8 (11.5-15.5) % Plt Count 205 (150-450) k/uL MPV 7.7 Neutrophils % 52 % Lymphocytes % 38 % Monocytes % 6 % Eosinophils % 2 % Basophils % 1 % Neutrophils # 3.8 (1.3-7.7) k/uL Lymphocytes # 2.7 (1.0-4.8) k/uL Monocytes # 0.4 (0-1.0) k/uL Eosinophils # 0.1 (0-0.7) k/uL Basophils # 0.1 (0-0.2) k/uL Sodium 134 L (137-145) mmol/L Potassium 3.9 (3.5-5.1) mmol/L Chloride 96 L (98-107) mmol/L Carbon Dioxide 25 (22-30) mmol/L Anion Gap 13 mmol/L BUN 28 H (9-20) mg/dL Creatinine 1.26 H (0.66-1.25) mg/dL Est GFR (CKD-EPI)AfAm 73 (>60 ml/min/1.73 sqM) Est GFR (CKD-EPI)NonAf 63 (>60 ml/min/1.73 sqM) Glucose 237 H (74-99) mg/dL Plasma Lactic Acid Andrey 2.5 H* (0.7-2.0) mmol/L Calcium 8.7 (8.4-10.2) mg/dL Total Bilirubin 1.1 (0.2-1.3) mg/dL AST 21 (17-59) U/L ALT 25 (4-49) U/L Alkaline Phosphatase 99 (38-126) U/L C-Reactive Protein 3.3 H (<1.0) mg/dL Total Protein 7.2 (6.3-8.2) g/dL Albumin 4.4 (3.5-5.0) g/dL Disposition <Karel Case - Last Filed: 09/29/23 14:02> Time of Disposition: 19:11 <Tierra Macdonald - Last Filed: 09/29/23 19:12> Clinical Impression: Cellulitis of left toe Disposition: ADMITTED IP TO THIS HOSP Condition: Stable Referrals: Sandeep Tavares MD [Primary Care Provider] - 1-2 days
--- NOTE | 2023-09-29 15:26 | XR ---
EXAMINATION TYPE: XR foot complete LT DATE OF EXAM: 09/29/2023 3:21 PM CLINICAL INDICATION:Male, 58 years old with history of infection toe; [facility] COMPARISON: 11/10/2022 TECHNIQUE: XR foot complete LT examined in the AP, oblique, and lateral projections. FINDINGS/ IMPRESSION: * Soft tissue swelling of the great toe without evidence for osseous erosion at this time. 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
[2023-09-29 17:44] LABS: Basophils # (A) 0.1 k/uL (0-0.2); Basophils % (A) 1 %; Eosinophils # (A) 0.1 k/uL (0-0.7); Eosinophils % (A) 2 %; HCT 42.5 % (39.0-53.0); HGB 14.5 gm/dL (13.0-17.5); Lymphocytes # (A) 2.7 k/uL (1.0-4.8); Lymphocytes % (A) 38 %; MCH 30.5 pg (25.0-35.0); MCHC 34.2 g/dL (31.0-37.0); MCV 88.9 fL (80.0-100.0); Mean Platelet Volume 7.7; Monocytes # (A) 0.4 k/uL (0-1.0); Monocytes % (A) 6 %; Neutrophils # (A) 3.8 k/uL (1.3-7.7); Neutrophils % (A) 52 %; Platelet Count 205 k/uL (150-450); RBC 4.78 m/uL (4.30-5.90); RDW 12.8 % (11.5-15.5); WBC 7.2 k/uL (3.8-10.6)
[2023-09-29 18:01] LABS: ALT 25 U/L (4-49); AST 21 U/L (17-59); African American GFR (CKD) 73 (>60 ml/min/1.73 sqM); Albumin 4.4 g/dL (3.5-5.0); Alkaline Phosphatase 99 U/L (38-126); Anion Gap 13 mmol/L; Blood Urea Nitrogen 28 mg/dL (9-20); C Reactive Protein 3.3 mg/dL (<1.0); Calcium 8.7 mg/dL (8.4-10.2); Carbon Dioxide 25 mmol/L (22-30); Chloride 96 mmol/L (98-107); Glucose 237 mg/dL (74-99); Non-African American GFR(CKD) 63 (>60 ml/min/1.73 sqM); Potassium 3.9 mmol/L (3.5-5.1); Sodium 134 mmol/L (137-145); Total Bilirubin 1.1 mg/dL (0.2-1.3); Total Protein 7.2 g/dL (6.3-8.2)
[2023-09-29] MEDS ORDERED: VANCOMYCIN IV PER PHARMACY 1 EACH MISC MISCELLANE PRN (18:46)
[2023-09-29] MEDS ORDERED: ACETAMINOPHEN TAB 325 MG TAB PO PRN (19:00)
[2023-09-29] MEDS ORDERED: NALOXONE 0.4 MG/ML 1 ML VIAL IV PRN (19:00)
[2023-09-29] MEDS: CEFEPIME 2 GM in SODIUM CHLORIDE 0.9% 100 ML IVPB STA (19:26)
[2023-09-29] MEDS: VANCOMYCIN 1,750 MG in SODIUM CHLORIDE 0.9% 500 ML 500 ML IVPB SCH (20:59)
[2023-09-29] MEDS: metroNIDAZOLE 500 MG TAB PO SCH (21:44)
[2023-09-30] MEDS: CEFEPIME 2 GM in SODIUM CHLORIDE 0.9% 100 ML IVPB SCH (05:36)
[2023-09-30 07:31] LABS: Glucose,Whole Blood 208 mg/dL (70-110)
[2023-09-30] MEDS: CLOPIDOGREL 75 MG TAB PO SCH (08:48)
[2023-09-30] MEDS: SPIRONOLACTONE 25 MG TAB PO SCH (08:49)
[2023-09-30] MEDS: FUROSEMIDE 40 MG TAB PO SCH (08:49)
[2023-09-30] MEDS: ASPIRIN 81 MG PO SCH (08:49)
[2023-09-30] MEDS: hydrALAZINE HCL 25 MG TAB PO SCH (08:50)
[2023-09-30] MEDS: DAPAGLIFLOZIN PROPANEDIOL 10 MG TABLET PO SCH (08:50)
[2023-09-30] MEDS: carvediloL 12.5 MG TAB PO SCH (08:56)
[2023-09-30] MEDS ORDERED: DEXTROSE 50% SYRINGE 50 ML IVP PRN ×2 (09:13)
--- NOTE | 2023-09-30 09:16 | P.HPIM ---
History of Present Illness H&P Date: 09/30/23 this is a 58-year-old male patient of Dr. Tavares presented to ER with concerns of left toe foot infection.patient states he is dealing with what he thought was a fungus to his left toe over the past few months. He was evaluated at Dr. Gonsalez's office was sent over for concerns of abscess underneath the toenail. Patient has past medical history of diabetes mellitus, GERD, hypertension, osteomyelitis and ex-smoker.laboratory feeling of WBC 7.2, hemoglobin 14.5, creatinine 1.26 bun 28 initial lactic acid 2. 1 repeat 1.1.foot x-ray completed in ER showing soft tissue swelling of the greater toe without evidence for osseous erosion at this time severe degenerative changes of the joints at the midfoot with alkalosis. Current vital signs temp 98.0, heart rate 66, blood pressure 118/69, pulse ox 97 on room air. At this time patient was started on IV vancomycin and infectious disease and vascular surgery consulted Review of Systems please refer to HPI otherwise unremarkable Past Medical History Past Medical History: Diabetes Mellitus, GERD/Reflux, Hypertension Additional Past Medical History / Comment(s): osteomyelitis and pain left foot, stepped on kristen nail October 2018,hx neuropathy History of Any Multi-Drug Resistant Organisms: MRSA Date of last positivie culture/infection: march 2022 MDRO Source:: toe Past Surgical History: Tonsillectomy Additional Past Surgical History / Comment(s): endoscopy, middle toe rt foot removed ,lft 2nd toe tip removed Past Anesthesia/Blood Transfusion Reactions: No Reported Reaction Past Psychological History: No Psychological Hx Reported Smoking Status: Former smoker Past Alcohol Use History: None Reported Additional Past Alcohol Use History / Comment(s): STARTED SMOKING AT AROUND 21 SMOKED LESS 1/2PPD QUIT 1989 Past Drug Use History: None Reported - Past Family History Mother Family Medical History: Cancer Additional Family Medical History / Comment(s): breast cancer Father Family Medical History: Cancer Additional Family Medical History / Comment(s): lung cancer Sister(s) Family Medical History: Cancer Additional Family Medical History / Comment(s): lung cancer Medications and Allergies Home Medications Medication Instructions Recorded Confirmed Type Dapagliflozin Propanediol [Farxiga] 10 mg PO DAILY #30 tab 12/10/22 09/29/23 Rx Aspirin 81 mg PO DAILY #30 tab 12/11/22 09/29/23 Rx Clopidogrel [Plavix] 75 mg PO DAILY #30 tab 12/11/22 09/29/23 Rx Spironolactone [Aldactone] 25 mg PO DAILY #30 tab 12/11/22 09/29/23 Rx hydrALAZINE HCL [Apresoline] 25 mg PO BID #90 tab 12/11/22 09/29/23 Rx Furosemide [Lasix] 40 mg PO DAILY 02/05/23 09/29/23 History metFORMIN HCL 1,000 mg PO BID 04/28/23 09/29/23 History Atorvastatin [Lipitor] 40 mg PO HS 09/29/23 09/29/23 History carvediloL [Coreg] 25 mg PO BID 09/29/23 09/29/23 History Allergies Allergy/AdvReac Type Severity Reaction Status Date / Time levofloxacin [From Levaquin] Allergy Swelling, Verified 09/29/23 18:39 RASH Penicillins Allergy Unknown Verified 09/29/23 18:39 Childhood Physical Exam Vitals: Vital Signs Temp Pulse Pulse Resp BP BP Pulse Ox 09/30/23 07:00 98.0 F 66 119/69 97 09/30/23 02:12 97.1 F L 63 16 131/66 96 09/30/23 00:39 98.2 F 73 16 108/69 98 09/29/23 17:40 98.0 F 72 18 128/78 97 09/29/23 14:14 97.5 F L 77 18 143/94 99 Intake and Output 09/29/23 09/30/23 09/30/23 22:59 06:59 14:59 Intake Total 500 Balance 500 Intake: Intake, IV Titration 500 Amount Vancomycin 1,750 mg In 500 Sodium Chloride 0.9% 500 ml 500 ml @ 167 mls/hr IVPB Q12H [facility] Rx#: [id number] Other: Weight 117.934 kg Head normocephalic Neck supple Lungs clear to auscultation bilaterally no wheezing or crackles Heart regular rate and rhythm S1-S2, no rub or gallop Abdomen is soft nontender nondistended positive bowel sounds no hepatosplenomegaly Extremities no edema. Left greater toe nail thickened with yellow drainage Neuro alert and orientated to 3 Results CBC & Chem 7: 09/29/23 17:10 09/29/23 17:10 Labs: Abnormal Lab Results - Last 24 Hours (Table) 09/29/23 09/29/23 09/29/23 Range/Units 17:10 17:10 20:23 Sodium 134 L (137-145) mmol/L Chloride 96 L (98-107) mmol/L BUN 28 H (9-20) mg/dL Creatinine 1.26 H (0.66-1.25) mg/dL Glucose 237 H (74-99) mg/dL POC Glucose (mg/dL) (70-110) mg/dL Plasma Lactic Acid Andrey 2.5 H* 2.1 H* (0.7-2.0) mmol/L C-Reactive Protein 3.3 H (<1.0) mg/dL 09/30/23 Range/Units 07:29 Sodium (137-145) mmol/L Chloride (98-107) mmol/L BUN (9-20) mg/dL Creatinine (0.66-1.25) mg/dL Glucose (74-99) mg/dL POC Glucose (mg/dL) 208 H (70-110) mg/dL Plasma Lactic Acid Andrey (0.7-2.0) mmol/L C-Reactive Protein (<1.0) mg/dL Thrombosis Risk Factor Assmnt - Choose All That Apply Any of the Below Risk Factors Present?: Yes Each Factor Represents 1 point: Age 41-60 years, Obesity (BMI >25) Other Risk Factors: No Other congenital or acquired thrombophilia - If yes, enter type in comment: No Thrombosis Risk Factor Assessment Total Risk Factor Score: 2 Thrombosis Risk Factor Assessment Level: Low Risk Assessment and Plan Assessment: 1. Cellulitis and abscess to left foot. 2. History of osteomyelitis with MSSA 3. History of diabetes mellitus type 2 4. History of essential hypertension 5. History of MRSA 6. History of GERD 7. Ex-smoker At this time patient will be admitted Patient started on IV vancomycin Wound blood cultures ordered Infectious disease and vascular surgery consulted Home meds resumed Repeat labs ordered Time with Patient: Greater than 30 (Greater than 60% of the total time spent in counseling and coordination of care)
[2023-09-30 11:49] LABS: Glucose,Whole Blood 191 mg/dL (70-110)
[2023-09-30] MEDS: INSULIN ASPART (NovoLOG) 100 UNIT/ML VIAL SQ SCH (12:16)
--- NOTE | 2023-09-30 12:28 | P.GSCN ---
History of Present Illness Consult date: 09/30/23 Reason for Consult: Infected left great toe Requesting physician: Clarence Tavares History of present illness: This is a pleasant 58-year-old male who had presented to Dr. Tavares's office for concern of infected left great toe. Past medical history includes coronary artery disease status post stenting on Plavix and aspirin, diabetes mellitus and diabetic neuropathy. He states that his toenail was starting to come off and he was starting to get redness. He thought that he had more of a fungal infection. He went to Dr. Tavares's office yesterday and he had increased swelling of the left great toe and redness and was told to come to the emergency department for admission. He has had previous diabetic wound to the right foot and has undergone a right TMA with Dr. Sandoval in the past. He denies any fevers, chills, body aches, nausea or vomiting. Review of Systems A 14 point review systems was completed all pertinent positives and negatives as stated in the HPI. Past Medical History Past Medical History: Diabetes Mellitus, GERD/Reflux, Hypertension Additional Past Medical History / Comment(s): osteomyelitis and pain left foot, stepped on kristen nail October 2018,hx neuropathy History of Any Multi-Drug Resistant Organisms: MRSA Year Discovered:: march 2022 MDRO Source:: toe Past Surgical History: Tonsillectomy Additional Past Surgical History / Comment(s): endoscopy, middle toe rt foot removed ,lft 2nd toe tip removed Past Anesthesia/Blood Transfusion Reactions: No Reported Reaction Past Psychological History: No Psychological Hx Reported Smoking Status: Former smoker Past Alcohol Use History: None Reported Additional Past Alcohol Use History / Comment(s): STARTED SMOKING AT AROUND 21 SMOKED LESS 1/2PPD QUIT 1989 Past Drug Use History: None Reported - Past Family History Mother Family Medical History: Cancer Additional Family Medical History / Comment(s): breast cancer Father Family Medical History: Cancer Additional Family Medical History / Comment(s): lung cancer Sister(s) Family Medical History: Cancer Additional Family Medical History / Comment(s): lung cancer Medications and Allergies Home Medications Medication Instructions Recorded Confirmed Type Dapagliflozin Propanediol [Farxiga] 10 mg PO DAILY #30 tab 12/10/22 09/29/23 Rx Aspirin 81 mg PO DAILY #30 tab 12/11/22 09/29/23 Rx Clopidogrel [Plavix] 75 mg PO DAILY #30 tab 12/11/22 09/29/23 Rx Spironolactone [Aldactone] 25 mg PO DAILY #30 tab 12/11/22 09/29/23 Rx hydrALAZINE HCL [Apresoline] 25 mg PO BID #90 tab 12/11/22 09/29/23 Rx Furosemide [Lasix] 40 mg PO DAILY 02/05/23 09/29/23 History metFORMIN HCL 1,000 mg PO BID 04/28/23 09/29/23 History Atorvastatin [Lipitor] 40 mg PO HS 09/29/23 09/29/23 History carvediloL [Coreg] 25 mg PO BID 09/29/23 09/29/23 History Allergies Allergy/AdvReac Type Severity Reaction Status Date / Time levofloxacin [From Levaquin] Allergy Swelling, Verified 09/29/23 18:39 RASH Penicillins Allergy Unknown Verified 09/29/23 18:39 Childhood Surgical - Exam Vital Signs Temp Pulse Resp BP Pulse Ox 97.5 F L 77 18 143/94 99 09/29/23 14:14 09/29/23 14:14 09/29/23 14:14 09/29/23 14:14 09/29/23 14:14 General appearance: The patient is alert, oriented, appears in no acute distress. HET: Head is normocephalic and atraumatic. Pupils are equal and reactive. Neck: Supple. Heart: Regular. Lungs: Equal expansion, normal respiratory effort. Abdomen: Soft, nontender, nondistended. Extremities: Bilateral lower extremity warm to the touch, palpable PT and DP pulses. Right previous TMA well-healed. Left foot great toe with thickened toenail, only attached by small area, great toe swollen with redness, and wound to the plantar aspect with purulent drainage. Decreased sensory to bilateral feet. Neurological: No focal deficits. Alert and oriented. Results - Labs 09/29/23 17:10 09/29/23 17:10 Abnormal Lab Results - Last 24 Hours (Table) 09/29/23 09/29/23 09/29/23 Range/Units 17:10 17:10 20:23 Sodium 134 L (137-145) mmol/L Chloride 96 L (98-107) mmol/L BUN 28 H (9-20) mg/dL Creatinine 1.26 H (0.66-1.25) mg/dL Glucose 237 H (74-99) mg/dL POC Glucose (mg/dL) (70-110) mg/dL Plasma Lactic Acid Andrey 2.5 H* 2.1 H* (0.7-2.0) mmol/L C-Reactive Protein 3.3 H (<1.0) mg/dL 09/30/23 Range/Units 07:29 Sodium (137-145) mmol/L Chloride (98-107) mmol/L BUN (9-20) mg/dL Creatinine (0.66-1.25) mg/dL Glucose (74-99) mg/dL POC Glucose (mg/dL) 208 H (70-110) mg/dL Plasma Lactic Acid Andrey (0.7-2.0) mmol/L C-Reactive Protein (<1.0) mg/dL Diabetes panel 09/29/23 Range/Units 17:10 Sodium 134 L (137-145) mmol/L Potassium 3.9 (3.5-5.1) mmol/L Chloride 96 L (98-107) mmol/L Carbon Dioxide 25 (22-30) mmol/L BUN 28 H (9-20) mg/dL Creatinine 1.26 H (0.66-1.25) mg/dL Glucose 237 H (74-99) mg/dL Calcium 8.7 (8.4-10.2) mg/dL AST 21 (17-59) U/L ALT 25 (4-49) U/L Alkaline Phosphatase 99 (38-126) U/L Total Protein 7.2 (6.3-8.2) g/dL Albumin 4.4 (3.5-5.0) g/dL Calcium panel 09/29/23 Range/Units 17:10 Calcium 8.7 (8.4-10.2) mg/dL Albumin 4.4 (3.5-5.0) g/dL Pituitary panel 09/29/23 Range/Units 17:10 Sodium 134 L (137-145) mmol/L Potassium 3.9 (3.5-5.1) mmol/L Chloride 96 L (98-107) mmol/L Carbon Dioxide 25 (22-30) mmol/L BUN 28 H (9-20) mg/dL Creatinine 1.26 H (0.66-1.25) mg/dL Glucose 237 H (74-99) mg/dL Calcium 8.7 (8.4-10.2) mg/dL Adrenal panel 09/29/23 Range/Units 17:10 Sodium 134 L (137-145) mmol/L Potassium 3.9 (3.5-5.1) mmol/L Chloride 96 L (98-107) mmol/L Carbon Dioxide 25 (22-30) mmol/L BUN 28 H (9-20) mg/dL Creatinine 1.26 H (0.66-1.25) mg/dL Glucose 237 H (74-99) mg/dL Calcium 8.7 (8.4-10.2) mg/dL Total Bilirubin 1.1 (0.2-1.3) mg/dL AST 21 (17-59) U/L ALT 25 (4-49) U/L Alkaline Phosphatase 99 (38-126) U/L Total Protein 7.2 (6.3-8.2) g/dL Albumin 4.4 (3.5-5.0) g/dL - Imaging Comments: Left foot x-ray. Soft tissue swelling without any evidence of osseous erosion at this time Assessment and Plan Assessment: 1. Infected left great toe wound, diabetic 2. Diabetes mellitus 3. Peripheral neuropathy 4. History of right foot TMA 5. History of coronary artery disease on aspirin and Plavix Plan: 1. Continue antibiotics per recommendations from infectious disease 2. Blood cultures currently pending 3. Wound cultures ordered 4. Will plan bedside debridement of left great toe. Patient agreeable to this plan. 5. Patient may have consistent carbohydrate diet 6. Rest of medical management per primary medical team 7. Continue local wound care per recommendations from infectious disease Thank you For this consultation, we will continue to follow. The impression and plan of care has been dictated as directed. Dr. Burgess I performed a history and examination of this patient, discussed the same with the dictator. I agree with the dictator's note ,documented as a scribe. Any additional findings or plans will be noted.
[2023-09-30 16:33] LABS: Glucose,Whole Blood 222 mg/dL (70-110)
[2023-09-30] MEDS: SODIUM HYPOCHLORITE 0.25% 480 ML BOT MISCELLANE SCH (17:34)
--- NOTE | 2023-09-30 17:59 | P.PCN ---
Date of Procedure: 09/30/23 Preoperative Diagnosis: Left great toe gangrene, infection Postoperative Diagnosis: same Procedure(s) Performed: excisional debridement of left great toe Anesthesia: none Surgeon: Donovan Burgess Estimated Blood Loss (ml): 0 Pathology: other (Deep wound culture) Condition: stable Disposition: floor Indications for Procedure: 58-year-old gentleman presented to the emergency department secondary to infected left great toe after being seen in his infectious disease/wound care physician's office. He has noticed some drainage from the area as well as the toenail has been peeling off. He denies any fevers, chills, chest pain or shortness of breath. Description of Procedure: After written and informed consent was obtained for the patient and all risk, benefits and complications were described the procedure was performed at the bedside. The area of the great toe was prepped and draped in the usual sterile fashion. Utilizing a 15 blade scalpel the overlying ischemic tissue was removed and there was a large pocket of purulence noted which was drained and cultured. The ischemic tissue was then removed around the plantar surface of the great toe as well as up to the toenail which was excised. The wound itself measured 3 cm x 2 cm with depth down to the subcutaneous tissue. The area was then copiously irrigated with Dakin solution and dressed with Dakin's, 4 x 4 and Kerlix. Patient tolerated the procedure well and will continue local wound care.
--- NOTE | 2023-09-30 19:41 | P.CONS ---
History of Present Illness - Reason for Consult Consult date: 09/30/23 - History of Present Illness Patient is a 58-year-old male with a past medical history significant for diabetes mellitus hypertension reflux in this patient who did have history of right diabetic foot infection status post right transmetatarsal amputation patient presented to the office yesterday concerning for increasing pain swelling redness and drainage from his left big toe that apparently was going on for about a week patient did have a fungus infection to the toenail treated in the outpatient setting by his primary care physician. Noticed to have increasing swelling and redness and some foul-smelling drainage to the left big toe has been describing pain mostly pressure mild to moderate without any radiation and did have some foul-smelling drainage on presentation to the hospital patient did have a temperature of 97.5 patient was not tachycardic hypotensive or hypoxic patient did have white count 7.2 creatinine is 1.26 liver enzymes are normal CRP is 3.3 local culture repeat currently pending. Have x- ray of the foot soft tissue swelling of the great toe without evidence for bony erosion at this time severe degenerative changes of the joints of the midfoot with ankylosis patient was started on vancomycin infectious disease was consulted for further management of antibiotic therapy Past Medical History Past Medical History: Diabetes Mellitus, GERD/Reflux, Hypertension Additional Past Medical History / Comment(s): osteomyelitis and pain left foot, stepped on kristen nail October 2018,hx neuropathy History of Any Multi-Drug Resistant Organisms: MRSA Year Discovered:: march 2022 MDRO Source:: toe Past Surgical History: Tonsillectomy Additional Past Surgical History / Comment(s): endoscopy, middle toe rt foot removed ,lft 2nd toe tip removed Past Anesthesia/Blood Transfusion Reactions: No Reported Reaction Past Psychological History: No Psychological Hx Reported Smoking Status: Former smoker Past Alcohol Use History: None Reported Additional Past Alcohol Use History / Comment(s): STARTED SMOKING AT AROUND 21 SMOKED LESS 1/2PPD QUIT 1989 Past Drug Use History: None Reported - Past Family History Mother Family Medical History: Cancer Additional Family Medical History / Comment(s): breast cancer Father Family Medical History: Cancer Additional Family Medical History / Comment(s): lung cancer Sister(s) Family Medical History: Cancer Additional Family Medical History / Comment(s): lung cancer Medications and Allergies Home Medications Medication Instructions Recorded Confirmed Type Dapagliflozin Propanediol [Farxiga] 10 mg PO DAILY #30 tab 12/10/22 09/29/23 Rx Aspirin 81 mg PO DAILY #30 tab 12/11/22 09/29/23 Rx Clopidogrel [Plavix] 75 mg PO DAILY #30 tab 12/11/22 09/29/23 Rx Spironolactone [Aldactone] 25 mg PO DAILY #30 tab 12/11/22 09/29/23 Rx hydrALAZINE HCL [Apresoline] 25 mg PO BID #90 tab 12/11/22 09/29/23 Rx Furosemide [Lasix] 40 mg PO DAILY 02/05/23 09/29/23 History metFORMIN HCL 1,000 mg PO BID 04/28/23 09/29/23 History Atorvastatin [Lipitor] 40 mg PO HS 09/29/23 09/29/23 History carvediloL [Coreg] 25 mg PO BID 09/29/23 09/29/23 History Allergies Allergy/AdvReac Type Severity Reaction Status Date / Time levofloxacin [From Levaquin] Allergy Swelling, Verified 09/29/23 18:39 RASH Penicillins Allergy Unknown Verified 09/29/23 18:39 Childhood Physical Exam Vitals: Vital Signs Temp Pulse Pulse Resp BP BP Pulse Ox 09/30/23 07:00 98.0 F 66 119/69 97 09/30/23 02:12 97.1 F L 63 16 131/66 96 09/30/23 00:39 98.2 F 73 16 108/69 98 09/29/23 17:40 98.0 F 72 18 128/78 97 09/29/23 14:14 97.5 F L 77 18 143/94 99 Intake and Output 09/29/23 09/30/23 09/30/23 22:59 06:59 14:59 Intake Total 500 Balance 500 Intake: Intake, IV Titration 500 Amount Vancomycin 1,750 mg In 500 Sodium Chloride 0.9% 500 ml 500 ml @ 167 mls/hr IVPB Q12H [facility] Rx#: [id number] Other: Voiding Method Toilet Urinal Weight 117.934 kg Results CBC & Chem 7: 10/02/23 06:31 10/03/23 06:14 Labs: Abnormal Lab Results - Last 24 Hours (Table) 09/29/23 09/29/23 09/29/23 Range/Units 17:10 17:10 20:23 Sodium 134 L (137-145) mmol/L Chloride 96 L (98-107) mmol/L BUN 28 H (9-20) mg/dL Creatinine 1.26 H (0.66-1.25) mg/dL Glucose 237 H (74-99) mg/dL POC Glucose (mg/dL) (70-110) mg/dL Plasma Lactic Acid Andrey 2.5 H* 2.1 H* (0.7-2.0) mmol/L C-Reactive Protein 3.3 H (<1.0) mg/dL 09/30/23 09/30/23 Range/Units 07:29 11:47 Sodium (137-145) mmol/L Chloride (98-107) mmol/L BUN (9-20) mg/dL Creatinine (0.66-1.25) mg/dL Glucose (74-99) mg/dL POC Glucose (mg/dL) 208 H 191 H (70-110) mg/dL Plasma Lactic Acid Andrey (0.7-2.0) mmol/L C-Reactive Protein (<1.0) mg/dL Assessment and Plan Plan: 1patient with extensive left big toe diabetic foot infection concerning for infected callus and underlying abscess also with evidence of infective nailbed which has fallen off we will need to cover for the polymicrobial liu associated with diabetic foot infection. 2patient with a penicillin and Levaquin allergies that will limit number of antibiotics safe to use 3-mild renal insufficiency. 4vancomycin pharmacy to dose target trough of 15 while watching kidney function and Vanco trough closely. 5cefepime and Flagyl has been added to cover for the gram-negative and anaerobes. 6await vascular surgery debridement of this left big toe that will determine the depth of infection as well as deep culture and the discharge antibiotic on the basis of those culture. We will follow on clinical condition and cultures to further adjust medication if needed Thank you for this consultation we will follow the patient along with you Dictation was produced using [employer] dictation software. please excuse any gra mmatical, word or spelling errors. Time with Patient: Greater than 30
[2023-09-30 20:09] LABS: Glucose,Whole Blood 299 mg/dL (70-110)
[2023-09-30] MEDS: ATORVASTATIN 40 MG TAB PO SCH (20:31)
[2023-10-01 06:09] LABS: Glucose,Whole Blood 193 mg/dL (70-110)
[2023-10-01 07:02] LABS: ALT 23 U/L (4-49); AST 23 U/L (17-59); African American GFR (CKD) >90 (>60 ml/min/1.73 sqM); Albumin 3.4 g/dL (3.5-5.0); Alkaline Phosphatase 83 U/L (38-126); Anion Gap 6 mmol/L; Blood Urea Nitrogen 19 mg/dL (9-20); Calcium 8.7 mg/dL (8.4-10.2); Carbon Dioxide 24 mmol/L (22-30); Chloride 107 mmol/L (98-107); Glucose 194 mg/dL (74-99); Non-African American GFR(CKD) 90 (>60 ml/min/1.73 sqM); Potassium 4.6 mmol/L (3.5-5.1); Sodium 137 mmol/L (137-145); Total Bilirubin 0.7 mg/dL (0.2-1.3)
[2023-10-01 07:27] LABS: Basophils % (A) 1 %; Eosinophils # (A) 0.1 k/uL (0-0.7); Eosinophils % (A) 3 %; HCT 38.9 % (39.0-53.0); HGB 13.1 gm/dL (13.0-17.5); Lymphocytes # (A) 1.7 k/uL (1.0-4.8); Lymphocytes % (A) 42 %; MCH 30.3 pg (25.0-35.0); MCHC 33.6 g/dL (31.0-37.0); MCV 90.2 fL (80.0-100.0); Mean Platelet Volume 7.5; Monocytes # (A) 0.3 k/uL (0-1.0); Monocytes % (A) 6 %; Neutrophils # (A) 1.9 k/uL (1.3-7.7); Neutrophils % (A) 46 %; Platelet Count 184 k/uL (150-450); RBC 4.31 m/uL (4.30-5.90); RDW 12.9 % (11.5-15.5); WBC 4.2 k/uL (3.8-10.6)
[2023-10-01] MEDS: FAMOTIDINE 20 MG TAB PO SCH (08:39)
[2023-10-01 11:09] LABS: Erythrocyte Sedimentation Rate 16 mm/Hr (0-20)
--- NOTE | 2023-10-01 11:13 | P.PN ---
Subjective Progress Note Date: 10/01/23 this is a 58-year-old male patient of Dr. Tavares presented to ER with concerns of left toe foot infection.patient states he is dealing with what he thought was a fungus to his left toe over the past few months. He was evaluated at Dr. Gonsalez's office was sent over for concerns of abscess underneath the toenail. Patient has past medical history of diabetes mellitus, GERD, hypertension, osteomyelitis and ex-smoker.laboratory feeling of WBC 7.2, hemoglobin 14.5, creatinine 1.26 bun 28 initial lactic acid 2. 1 repeat 1.1.foot x-ray completed in ER showing soft tissue swelling of the greater toe without evidence for osseous erosion at this time severe degenerative changes of the joints at the midfoot with alkalosis. Current vital signs temp 98.0, heart rate 66, blood pressure 118/69, pulse ox 97 on room air. At this time patient was started on IV vancomycin and infectious disease and vascular surgery consulted On 09/30/2024 for patient's alert and oriented 3. Patient underwent debridement with vascular surgery yesterday. Patient remains on cefepime Flagyl and vancomycin.current vital signs temp 97.6, heart rate 60, respiratory rate 14, blood pressure 134/77 with pulse ox 97% on room air. Patient denies chest pain or shortness breath. Patient denies nausea vomiting or diarrhea. Patient denies any urinary burning or frequency Objective - Vital Signs Vital signs: Vital Signs Temp 97.6 F 10/01/23 10:35 Pulse 60 10/01/23 10:35 Resp 14 10/01/23 10:35 BP 134/77 10/01/23 10:35 Pulse Ox 97 10/01/23 10:35 FiO2 Intake & Output 09/30/23 10/01/23 10/01/23 18:59 06:59 18:59 Intake Total 600 Balance 600 Weight 117.934 kg Intake: Intake, IV Titration 600 Amount Cefepime 2 gm In Sodium 100 Chloride 0.9% 100 ml @ 25 mls/hr IVPB Q8H [facility] Rx#: [id number] Vancomycin 1,750 mg In 500 Sodium Chloride 0.9% 500 ml 500 ml @ 167 mls/hr IVPB Q12H [facility] Rx#: [id number] Other: Voiding Method Toilet Toilet Urinal Urinal # Voids 1 - Exam Head normocephalic Neck supple Lungs clear to auscultation bilaterally no wheezing or crackles Heart regular rate and rhythm S1-S2, no rub or gallop Abdomen is soft nontender nondistended positive bowel sounds no hepatosplenomegaly Extremities no edema. Left greater toe nail thickened with yellow drainage Neuro alert and orientated to 3 - Labs CBC & Chem 7: 10/01/23 06:22 10/01/23 06:22 Labs: Abnormal Lab Results - Last 24 Hours (Table) 09/30/23 09/30/23 09/30/23 Range/Units 11:47 16:31 20:08 Hct (39.0-53.0) % Glucose (74-99) mg/dL POC Glucose (mg/dL) 191 H 222 H 299 H (70-110) mg/dL Hemoglobin A1c (<=6.0) % Total Protein (6.3-8.2) g/dL Albumin (3.5-5.0) g/dL 10/01/23 10/01/23 10/01/23 Range/Units 06:08 06:22 06:22 Hct (39.0-53.0) % Glucose 194 H (74-99) mg/dL POC Glucose (mg/dL) 193 H (70-110) mg/dL Hemoglobin A1c 7.6 H (<=6.0) % Total Protein 6.0 L (6.3-8.2) g/dL Albumin 3.4 L (3.5-5.0) g/dL 10/01/23 Range/Units 06:22 Hct 38.9 L (39.0-53.0) % Glucose (74-99) mg/dL POC Glucose (mg/dL) (70-110) mg/dL Hemoglobin A1c (<=6.0) % Total Protein (6.3-8.2) g/dL Albumin (3.5-5.0) g/dL Microbiology - Last 24 Hours (Table) 09/30/23 09:46 Gram Stain - Preliminary Toe - Left First Wound Culture - Preliminary Gram Neg Bacilli 09/30/23 17:38 Gram Stain - Preliminary Toe - Left First 09/29/23 17:40 Blood Culture - Preliminary Blood 09/29/23 17:10 Blood Culture - Preliminary Blood Assessment and Plan Assessment: 1. Cellulitis and abscess to left foot. 2. History of osteomyelitis with MSSA 3. History of diabetes mellitus type 2 4. History of essential hypertension 5. History of MRSA 6. History of GERD 7. Ex-smoker At this time patient will be admitted Patient started on IV vancomycin Wound blood cultures ordered Status post debridement on 09/30/2023 Infectious disease and vascular surgery consulted Home meds resumed Repeat labs ordered
[2023-10-01 11:55] LABS: Glucose,Whole Blood 221 mg/dL (70-110)
--- NOTE | 2023-10-01 11:56 | P.PN ---
Subjective Progress Note Date: 10/01/23 Principal diagnosis: Toe infection Patient seen and examined today as a follow-up. States toe pain is somewhat improved. He has a dressing to the foot that is clean dry and intact. He is currently on IV antibiotics. Preliminary wound cultures showing gram-negative bacilli. Objective - Vital Signs Vital signs: Vital Signs Temp 97.7 F 10/01/23 02:00 Pulse 59 L 10/01/23 02:00 Resp 16 10/01/23 02:00 BP 130/70 10/01/23 02:00 Pulse Ox 100 10/01/23 02:00 FiO2 Intake & Output 09/30/23 10/01/23 10/01/23 18:59 06:59 18:59 Intake Total 600 Balance 600 Intake: Intake, IV Titration 600 Amount Cefepime 2 gm In Sodium 100 Chloride 0.9% 100 ml @ 25 mls/hr IVPB Q8H [facility] Rx#: [id number] Vancomycin 1,750 mg In 500 Sodium Chloride 0.9% 500 ml 500 ml @ 167 mls/hr IVPB Q12H [facility] Rx#: [id number] Other: Voiding Method Toilet Urinal # Voids 1 - Exam General appearance: The patient is alert, oriented, appears in no acute distress. HET: Head is normocephalic and atraumatic. Pupils are equal and reactive. Neck: Supple. Abdomen: Soft, nondistended. Extremities: Left foot with dressing clean dry and intact. Neurological: No focal deficits. Strength and sensation are grossly intact. - Labs CBC & Chem 7: 10/01/23 06:22 10/01/23 06:22 Labs: Abnormal Lab Results - Last 24 Hours (Table) 09/30/23 09/30/23 09/30/23 Range/Units 11:47 16:31 20:08 Hct (39.0-53.0) % Glucose (74-99) mg/dL POC Glucose (mg/dL) 191 H 222 H 299 H (70-110) mg/dL Total Protein (6.3-8.2) g/dL Albumin (3.5-5.0) g/dL 10/01/23 10/01/23 10/01/23 Range/Units 06:08 06:22 06:22 Hct 38.9 L (39.0-53.0) % Glucose 194 H (74-99) mg/dL POC Glucose (mg/dL) 193 H (70-110) mg/dL Total Protein 6.0 L (6.3-8.2) g/dL Albumin 3.4 L (3.5-5.0) g/dL Microbiology - Last 24 Hours (Table) 09/30/23 09:46 Gram Stain - Preliminary Toe - Left First Wound Culture - Preliminary Gram Neg Bacilli 09/30/23 17:38 Gram Stain - Preliminary Toe - Left First 09/29/23 17:40 Blood Culture - Preliminary Blood 09/29/23 17:10 Blood Culture - Preliminary Blood Assessment and Plan Assessment: 1. Infected left great toe wound, diabetic status post toenail removal and incision and drainage 2. Diabetes mellitus 3. Peripheral neuropathy 4. History of right foot TMA 5. History of coronary artery disease on aspirin and Plavix Plan: 1. Continue antibiotics per recommendations from infectious disease 2. Consult to [facility] wound clinic, for continued local wound care 3. Patient may have consistent carbohydrate diet 4. Rest of medical management per primary medical team Thank you For this consultation, patient is cleared from vascular surgery for discharge. The impression and plan of care has been dictated as directed. Dr. Heard I performed a history and examination of this patient, discussed the same with the dictator. I agree with the dictator's note ,documented as a scribe. Any additional findings or plans will be noted.
--- NOTE | 2023-10-01 12:09 | P.CONS ---
History of Present Illness - Reason for Consult Consult date: 10/01/23 wound care - History of Present Illness This is a 58-year-old gentleman known to the wound care center with history of transmet amputation of the right foot amputation of the third digit of the left foot. Past medical history significant for coronary artery disease diabetes and neuropathy. Patient presented to the emergency room with redness and drainage to the left great toe. He underwent a I&D with Dr. Burgess resulting in an open ulceration measuring approximately 3 x 2 x 0.6 cm with slough and nonviable tissue present. Patient has purulent drainage from the site. The wound bed shows minimal granulation erythema is noted. Review Of Systems: Constitutional: No fever, no chills, no night sweats. No weight change. No weakness, fatigue or lethargy. No daytime sleepiness. Integumentary:reports wounds, no lesions. No rash or pruritus. No unusual bruising. No change in hair or nails. Physical exam: General Appearance: Alert, cooperative, no distress, appears stated age. Skin: See HPI all other Skin color, texture, tugor normal, no rashes or lesions. Neurologic: Alert oriented x3 Assessment: 1. Nonhealing ulceration left great toe with fat layer exposure 2. Diabetic foot ulceration Plan: 1.Apply Santyl, saline moist gauze, dry gauze, rolled gauze and secure with paper tape. Continue to offload utilize a walker. We will be happy to see the patient in the wound care center upon discharge. Patient is agreeable. Thank you for the consultation any questions please contact the wound care cent er DNP note has been reviewed and discussed with Dr. Meraz and the impression and plan of care has been directed as dictated. Past Medical History Past Medical History: Diabetes Mellitus, GERD/Reflux, Hypertension Additional Past Medical History / Comment(s): osteomyelitis and pain left foot, stepped on kristen nail October 2018,hx neuropathy History of Any Multi-Drug Resistant Organisms: MRSA Year Discovered:: march 2022 MDRO Source:: toe Past Surgical History: Tonsillectomy Additional Past Surgical History / Comment(s): endoscopy, middle toe rt foot removed ,lft 2nd toe tip removed Past Anesthesia/Blood Transfusion Reactions: No Reported Reaction Past Psychological History: No Psychological Hx Reported Smoking Status: Former smoker Past Alcohol Use History: None Reported Additional Past Alcohol Use History / Comment(s): STARTED SMOKING AT AROUND 21 SMOKED LESS 1/2PPD QUIT 1989 Past Drug Use History: None Reported - Past Family History Mother Family Medical History: Cancer Additional Family Medical History / Comment(s): breast cancer Father Family Medical History: Cancer Additional Family Medical History / Comment(s): lung cancer Sister(s) Family Medical History: Cancer Additional Family Medical History / Comment(s): lung cancer Medications and Allergies Home Medications Medication Instructions Recorded Confirmed Type Dapagliflozin Propanediol [Farxiga] 10 mg PO DAILY #30 tab 12/10/22 09/29/23 Rx Aspirin 81 mg PO DAILY #30 tab 12/11/22 09/29/23 Rx Clopidogrel [Plavix] 75 mg PO DAILY #30 tab 12/11/22 09/29/23 Rx Spironolactone [Aldactone] 25 mg PO DAILY #30 tab 12/11/22 09/29/23 Rx hydrALAZINE HCL [Apresoline] 25 mg PO BID #90 tab 12/11/22 09/29/23 Rx Furosemide [Lasix] 40 mg PO DAILY 02/05/23 09/29/23 History metFORMIN HCL 1,000 mg PO BID 04/28/23 09/29/23 History Atorvastatin [Lipitor] 40 mg PO HS 09/29/23 09/29/23 History carvediloL [Coreg] 25 mg PO BID 09/29/23 09/29/23 History Allergies Allergy/AdvReac Type Severity Reaction Status Date / Time levofloxacin [From Levaquin] Allergy Swelling, Verified 09/29/23 18:39 RASH Penicillins Allergy Unknown Verified 09/29/23 18:39 Childhood Physical Exam Vitals: Vital Signs Temp Pulse Resp BP Pulse Ox 10/01/23 10:35 97.6 F 60 14 134/77 97 10/01/23 02:00 97.7 F 59 L 16 130/70 100 09/30/23 20:00 97.6 F 62 16 119/64 98 09/30/23 14:42 98.0 F 62 120/79 98 Intake and Output 09/30/23 10/01/23 10/01/23 22:59 06:59 14:59 Intake Total 100 500 Balance 100 500 Intake: Intake, IV Titration 100 500 Amount Cefepime 2 gm In Sodium 100 Chloride 0.9% 100 ml @ 25 mls/hr IVPB Q8H [facility] Rx#: [id number] Vancomycin 1,750 mg In 500 Sodium Chloride 0.9% 500 ml 500 ml @ 167 mls/hr IVPB Q12H [facility] Rx#: [id number] Other: Voiding Method Toilet Urinal Weight 117.934 kg Results CBC & Chem 7: 10/01/23 06:22 10/01/23 06:22 Labs: Abnormal Lab Results - Last 24 Hours (Table) 09/30/23 09/30/23 10/01/23 Range/Units 16:31 20:08 06:08 Hct (39.0-53.0) % Glucose (74-99) mg/dL POC Glucose (mg/dL) 222 H 299 H 193 H (70-110) mg/dL Hemoglobin A1c (<=6.0) % Total Protein (6.3-8.2) g/dL Albumin (3.5-5.0) g/dL 10/01/23 10/01/23 10/01/23 Range/Units 06:22 06:22 06:22 Hct 38.9 L (39.0-53.0) % Glucose 194 H (74-99) mg/dL POC Glucose (mg/dL) (70-110) mg/dL Hemoglobin A1c 7.6 H (<=6.0) % Total Protein 6.0 L (6.3-8.2) g/dL Albumin 3.4 L (3.5-5.0) g/dL 10/01/23 Range/Units 11:53 Hct (39.0-53.0) % Glucose (74-99) mg/dL POC Glucose (mg/dL) 221 H (70-110) mg/dL Hemoglobin A1c (<=6.0) % Total Protein (6.3-8.2) g/dL Albumin (3.5-5.0) g/dL Microbiology - Last 24 Hours (Table) 09/30/23 09:46 Gram Stain - Preliminary Toe - Left First Wound Culture - Preliminary Gram Neg Bacilli 09/30/23 17:38 Gram Stain - Preliminary Toe - Left First 09/29/23 17:40 Blood Culture - Preliminary Blood 09/29/23 17:10 Blood Culture - Preliminary Blood Assessment and Plan (1) Non-pressure chronic ulcer of other part of left foot with fat layer exposed Current Visit: Yes Status: Acute Code(s): L97.522 - NON-PRS CHRONIC ULCER OTH PRT LEFT FOOT W FAT LAYER EXPOSED SNOMED Code(s): 53507605318154618 (2) Diabetic foot ulcer Current Visit: No Status: Acute Code(s): E11.621 - TYPE 2 DIABETES MELLITUS WITH FOOT ULCER; L97.509 - NON-PRESSURE CHRONIC ULCER OTH PRT UNSP FOOT W UNSP SEVERITY SNOMED Code(s): 445200867
[2023-10-01 17:11] LABS: Glucose,Whole Blood 195 mg/dL (70-110)
[2023-10-01] MEDS: ENOXAPARIN 40 MG/0.4 ML SYRINGE SQ SCH (17:55)
[2023-10-01 21:03] LABS: Glucose,Whole Blood 279 mg/dL (70-110)
[2023-10-02 07:28] LABS: Glucose,Whole Blood 231 mg/dL (70-110)
[2023-10-02 08:23] LABS: ALT 27 U/L (4-49); AST 28 U/L (17-59); African American GFR (CKD) >90 (>60 ml/min/1.73 sqM); Albumin 3.7 g/dL (3.5-5.0); Albumin/Globulin Ratio 1.4; Alkaline Phosphatase 90 U/L (38-126); Anion Gap 8 mmol/L; Blood Urea Nitrogen 15 mg/dL (9-20); Carbon Dioxide 25 mmol/L (22-30); Chloride 106 mmol/L (98-107); Globulin 2.6 g/dL; Glucose 196 mg/dL (74-99); Non-African American GFR(CKD) 80 (>60 ml/min/1.73 sqM); Potassium 3.9 mmol/L (3.5-5.1); Sodium 139 mmol/L (137-145); Total Bilirubin 0.8 mg/dL (0.2-1.3); Total Protein 6.3 g/dL (6.3-8.2)
[2023-10-02] MEDS: VANCOMYCIN TROUGH DUE 1 EACH MISC MISCELLANE ONE (09:54)
[2023-10-02] MEDS ORDERED: LIDOCAINE 1% INJ 10MG/ML (20 ML MDV) ONE (10:09)
[2023-10-02] MEDS: LIDOCAINE 1% INJ 10MG/ML (20 ML MDV) SQ ONE (10:17)
--- NOTE | 2023-10-02 10:23 | P.OP ---
Date of Procedure: 10/02/23 Description of Procedure: Date of Procedure: Preoperative Diagnosis: Need for long-term IV antibiotic access. Postoperative Diagnosis: Same. Procedure(s) Performed: Ultrasound-guided cannulation left basilic vein. Insertion of peripherally inserted central catheter under fluoroscopic guidance. Anesthesia: local (1% Xylocaine.) Surgeon: Orquidea Estimated Blood Loss (ml): 5 IV fluids (ml): 0 Urine output (ml): 0 Pathology: none sent Condition: stable Disposition: no change Indications for Procedure: Patient is a patient will require long-term IV antibiotics as an outpatient patient is offered a PICC line to allow for intravenous administration of antibiotics. Description of Procedure: Patient was brought to the special procedure suite. The left upper extremity sterilely prepped and draped in usual manner. Ultrasound was utilized to identify the basilic vein which was normally compressible free of visible thrombus. Permenant image was stored. 1% Xylocaine was utilized for local anesthesia tissues overlying the vein. Through this anesthetized area and with the aid of ultrasound a micropuncture needle was utilized to cannulate the vein. Once cannulated, Softip guidewire was advanced into the vein. The needle was withdrawn and a micropuncture sheath and dilator advanced over the guidewire. The guidewire was withdrawn and exchanged for the PICC guidewire and measured 52 cm to the cavoatrial junction. The catheter was cut to size and advanced into the cavoatrial junction without resistance. The sheath was peeled away. Blood was easily withdrawn through the catheter and the catheter was then flushed with heparinized saline solution and secured to the skin. Patient tolerated procedure well and was returned to their room in satisfactory and stable condition.
[2023-10-02 10:39] LABS: Basophils # (A) 0.03 X 10*3/uL (0.00-0.10); Basophils % (A) 0.7 %; Eosinophils # (A) 0.09 X 10*3/uL (0.04-0.35); HCT 39.2 % (39.6-50.0); HGB 13.3 g/dL (13.0-17.0); Lymphocytes # (A) 2.02 X 10*3/uL (0.90-5.00); Lymphocytes % (A) 44.5 %; MCH 30.4 pg (27.0-32.0); MCHC 33.9 g/dL (32.0-37.0); MCV 89.5 FL (80.0-97.0); Mean Platelet Volume 9.8 FL (9.5-12.2); Monocytes # (A) 0.42 X 10*3/uL (0.20-1.00); Monocytes % (A) 9.3 %; NRBC Per 100 WBC 0 X 10*3/uL (0.00-0.01); Neutrophils # (A) 1.96 X 10*3/uL (1.80-7.70); Neutrophils % (A) 43.1 %; Platelet Count 171 X 10*3/uL (140-440); RBC 4.38 X 10*6/uL (4.40-5.60); RDW 12.2 % (11.5-14.5); WBC 4.54 X 10*3/uL (4.50-10.00)
[2023-10-02] MEDS: VANCOMYCIN 1,500 MG in SODIUM CHLORIDE 0.9% 500 ML 500 ML IVPB SCH (10:43)
--- NOTE | 2023-10-02 11:48 | IR ---
EXAMINATION TYPE: IR cvc insert >=5 years DATE OF EXAM: 10/02/2023 COMPARISON: NONE HISTORY: Fluoroscopy time. Fluoroscopy was provided to the referring clinician.
[2023-10-02 11:59] LABS: Glucose,Whole Blood 277 mg/dL (70-110)
--- NOTE | 2023-10-02 13:36 | NM ---
EXAMINATION TYPE: NM bone 3 phase DATE OF EXAM: 10/02/2023 COMPARISON: 04/30/2023 CLINICAL INDICATION: Male, 58 years old with history of left big toe diabetic foot /osteomyelitis; Triple phase bone scintigraphy was performed following the injection of 23 mCi Tc 99m MDP. Immediate images and 6 hours post injection images acquired. FINDINGS: Flow imaging demonstrates increased uptake within the left great toe. Uptake within the soft tissues on blood pool imaging most pronounced involving the left first digit and the forefoot of the right. O n delayed imaging there is uptake involving the metatarsals of the right foot and most pronounced on the first and second metatarsal. Within the left foot centered around the mid foot joints. IMPRESSION: 1. Mild uptake on all 3 phases within the left big toe suspicious for osteomyelitis. 2. Similar findings could represent degeneration changes with cellulitis change involving the distal right foot and the left great toe..
[2023-10-02] MEDS: AMOXICILLIN 250 MG CAP PO STA (14:18)
[2023-10-02] MEDS: COLLAGENASE 250 UNIT/GM OINTMENT 30 GM TUBE TOPICAL SCH (14:52)
[2023-10-02 17:04] LABS: Glucose,Whole Blood 331 mg/dL (70-110)
--- NOTE | 2023-10-02 18:17 | P.PN ---
Subjective Progress Note Date: 10/02/23 this is a 58-year-old male patient of Dr. Tavares presented to ER with concerns of left toe foot infection.patient states he is dealing with what he thought was a fungus to his left toe over the past few months. He was evaluated at Dr. Gonsalez's office was sent over for concerns of abscess underneath the toenail. Patient has past medical history of diabetes mellitus, GERD, hypertension, osteomyelitis and ex-smoker.laboratory feeling of WBC 7.2, hemoglobin 14.5, creatinine 1.26 bun 28 initial lactic acid 2. 1 repeat 1.1.foot x-ray completed in ER showing soft tissue swelling of the greater toe without evidence for osseous erosion at this time severe degenerative changes of the joints at the midfoot with alkalosis. Current vital signs temp 98.0, heart rate 66, blood pressure 118/69, pulse ox 97 on room air. At this time patient was started on IV vancomycin and infectious disease and vascular surgery consulted On 10/01/2023 for patient's alert and oriented 3. Patient underwent debridement with vascular surgery yesterday. Patient remains on cefepime Flagyl and vancomycin.current vital signs temp 97.6, heart rate 60, respiratory rate 14, blood pressure 134/77 with pulse ox 97% on room air. Patient denies chest pain or shortness breath. Patient denies nausea vomiting or diarrhea. Patient denies any urinary burning or frequency on 10/02/2023 patient was seen and examined on the medical floor, he is complaining of mild pain in his foot otherwise he denies any complaints, there is no fever or chills no headache or dizziness no chest pain no shortness of breath no cough, no nausea or vomiting no abdominal pain no diarrhea and no urinary symptoms. At this time we are awaiting culture results and recommendation for antibiotic at discharge. Objective - Vital Signs Vital signs: Vital Signs Temp 97.4 F L 10/02/23 12:49 Pulse 59 L 10/02/23 12:49 Resp 18 10/02/23 12:49 BP 114/78 10/02/23 12:49 Pulse Ox 98 10/02/23 12:49 FiO2 Intake & Output 10/01/23 10/02/23 10/02/23 18:59 06:59 18:59 Weight 117.934 kg Other: Voiding Method Toilet Toilet Toilet Urinal Urinal Urinal # Voids 3 3 - Exam Head normocephalic Neck supple Lungs clear to auscultation bilaterally no wheezing or crackles Heart regular rate and rhythm S1-S2, no rub or gallop Abdomen is soft nontender nondistended positive bowel sounds no hepatosplenomegaly Extremities no edema. Left greater toe nail thickened with yellow drainage Neuro alert and orientated to 3 - Labs CBC & Chem 7: 10/02/23 06:31 10/02/23 06:31 Labs: Abnormal Lab Results - Last 24 Hours (Table) 10/01/23 10/02/23 10/02/23 Range/Units 21:00 06:31 06:31 RBC 4.38 L (4.40-5.60) X 10*6/uL Hct 39.2 L (39.6-50.0) % Glucose 196 H (74-99) mg/dL POC Glucose (mg/dL) 279 H (70-110) mg/dL 10/02/23 10/02/23 10/02/23 Range/Units 07:26 11:58 17:03 RBC (4.40-5.60) X 10*6/uL Hct (39.6-50.0) % Glucose (74-99) mg/dL POC Glucose (mg/dL) 231 H 277 H 331 H (70-110) mg/dL Microbiology - Last 24 Hours (Table) 09/30/23 09:46 Anaerobic Culture - Preliminary Toe - Left First 09/30/23 09:46 Gram Stain - Final Toe - Left First Wound Culture - Final Proteus mirabilis 09/30/23 17:38 Gram Stain - Preliminary Toe - Left First Wound Culture - Preliminary Gram Neg Bacilli Presumptive Staph aureus 09/29/23 17:40 Blood Culture - Preliminary Blood 09/29/23 17:10 Blood Culture - Preliminary Blood Assessment and Plan Assessment: 1. Cellulitis and abscess to left foot. 2. History of osteomyelitis with MSSA 3. History of diabetes mellitus type 2 4. History of essential hypertension 5. History of MRSA 6. History of GERD 7. Ex-smoker At this time patient will be admitted Patient started on IV vancomycin Wound blood cultures ordered Status post debridement on 09/30/2023 Infectious disease and vascular surgery consulted Home meds resumed Repeat labs ordered
[2023-10-02 20:12] LABS: Glucose,Whole Blood 205 mg/dL (70-110)
[2023-10-03 06:50] LABS: African American GFR (CKD) >90 (>60 ml/min/1.73 sqM); Non-African American GFR(CKD) 80 (>60 ml/min/1.73 sqM)
[2023-10-03 07:02] LABS: Glucose,Whole Blood 236 mg/dL (70-110)
--- NOTE | 2023-10-03 08:40 | P.PN ---
Subjective Progress Note Date: 10/01/23 Principal diagnosis: Reason for follow-up is left big toe diabetic foot infection Patient is a 58-year-old male with a past medical history significant for diabetes mellitus hypertension reflux in this patient who did have history of right diabetic foot infection status post right transmetatarsal amputation patient now presents to hospital with worsening infection to the left big toe. In this patient was status post excisional debridement of the left great toe com pleted on 09/30/2023. On today's evaluation that is 10/01/2023, the patient continues to be afebrile, the patient is on room air and breathing comfortably, the Pt denies having any chest pain or cough, the patient denies having any abdominal pain no vomiting or any diarrhea, but denies any worsening pain to the left big toe area. The patient white count is 4.2 creatinine 0.95 Objective - Vital Signs Vital signs: Vital Signs Temp 97.6 F 10/01/23 10:35 Pulse 60 10/01/23 10:35 Resp 14 10/01/23 10:35 BP 134/77 10/01/23 10:35 Pulse Ox 97 10/01/23 10:35 FiO2 Intake & Output 09/30/23 10/01/23 10/01/23 18:59 06:59 18:59 Intake Total 600 Balance 600 Weight 117.934 kg Intake: Intake, IV Titration 600 Amount Cefepime 2 gm In Sodium 100 Chloride 0.9% 100 ml @ 25 mls/hr IVPB Q8H [facility] Rx#: [id number] Vancomycin 1,750 mg In 500 Sodium Chloride 0.9% 500 ml 500 ml @ 167 mls/hr IVPB Q12H [facility] Rx#: [id number] Other: Voiding Method Toilet Toilet Urinal Urinal # Voids 1 - Exam GENERAL DESCRIPTION: An elderly male lying in bed in no distress RESPIRATORY SYSTEM: Unlabored breathing , decreased breath sounds at bases HEART: S1 S2 regular rate and rhythm , ABDOMEN: Soft , no tenderness EXTREMITIES: Left big toe is currently dressed minimal drainage on the dressing - Labs CBC & Chem 7: 10/02/23 06:31 10/03/23 06:14 Labs: Abnormal Lab Results - Last 24 Hours (Table) 09/30/23 09/30/23 10/01/23 Range/Units 16:31 20:08 06:08 Hct (39.0-53.0) % Glucose (74-99) mg/dL POC Glucose (mg/dL) 222 H 299 H 193 H (70-110) mg/dL Hemoglobin A1c (<=6.0) % Total Protein (6.3-8.2) g/dL Albumin (3.5-5.0) g/dL 10/01/23 10/01/23 10/01/23 Range/Units 06:22 06:22 06:22 Hct 38.9 L (39.0-53.0) % Glucose 194 H (74-99) mg/dL POC Glucose (mg/dL) (70-110) mg/dL Hemoglobin A1c 7.6 H (<=6.0) % Total Protein 6.0 L (6.3-8.2) g/dL Albumin 3.4 L (3.5-5.0) g/dL 10/01/23 Range/Units 11:53 Hct (39.0-53.0) % Glucose (74-99) mg/dL POC Glucose (mg/dL) 221 H (70-110) mg/dL Hemoglobin A1c (<=6.0) % Total Protein (6.3-8.2) g/dL Albumin (3.5-5.0) g/dL Microbiology - Last 24 Hours (Table) 09/30/23 09:46 Gram Stain - Preliminary Toe - Left First Wound Culture - Preliminary Gram Neg Bacilli 09/30/23 17:38 Gram Stain - Preliminary Toe - Left First 09/29/23 17:40 Blood Culture - Preliminary Blood 09/29/23 17:10 Blood Culture - Preliminary Blood Assessment and Plan (1) Cellulitis of left toe Current Visit: Yes Status: Acute Code(s): L03.032 - CELLULITIS OF LEFT TOE SNOMED Code(s): 12446972 (2) Diabetic foot ulcer Current Visit: No Status: Acute Code(s): E11.621 - TYPE 2 DIABETES MELLITUS WITH FOOT ULCER; L97.509 - NON-PRESSURE CHRONIC ULCER OTH PRT UNSP FOOT W UNSP SEVERITY SNOMED Code(s): 581054419 (3) Allergy to multiple antibiotics Current Visit: Yes Status: Acute Code(s): Z88.1 - ALLERGY STATUS TO OTHER ANTIBIOTIC AGENTS SNOMED Code(s): 036860464 Plan: 1patient with extensive left big toe diabetic foot infection concerning for infected callus and underlying abscess also with evidence of infective nailbed which has fallen off we will need to cover for the polymicrobial liu associated with diabetic foot infection. 2patient with a penicillin and Levaquin allergies that will limit number of antibiotics safe to use 3-mild renal insufficiency. 4patient is status post excisional debridement of the left big toe did not mention any extension down to the bones still clinical suspicion is high for underlying osteomyelitis bone scan has been ordered patient is covered with the vancomycin cefepime and Flagyl with the discharge antibiotic on the basis of bone scan and culture Dictation was produced using [employer] dictation software. please excuse any grammatical, word or spelling errors. Time with Patient: Less than 30
--- NOTE | 2023-10-03 08:41 | P.PN ---
Subjective Progress Note Date: 10/02/23 Principal diagnosis: Reason for follow-up is left big toe diabetic foot infection Patient is a 58-year-old male with a past medical history significant for diabetes mellitus hypertension reflux in this patient who did have history of right diabetic foot infection status post right transmetatarsal amputation patient now presents to hospital with worsening infection to the left big toe. In this patient was status post excisional debridement of the left great toe com pleted on 09/30/2023. On today's evaluation that is 10/02/2023, Patient is afebrile patient is curren tly on room air and denies having any shortness of breath, the patient denies any chest pain or cough, the patient denies any nausea vomiting did not have any abdominal pain and no diarrhea, patient denies significant pain to the left big toe or any drainage. The patient white count is 4.54, creatinine 1.05 cultures currently growing Proteus gram-negative bacilli and Staph aureus Objective - Vital Signs Vital signs: Vital Signs Temp 97.8 F 10/02/23 07:28 Pulse 56 L 10/02/23 07:28 Resp 18 10/02/23 07:28 BP 120/67 10/02/23 07:28 Pulse Ox 99 10/02/23 07:28 FiO2 Intake & Output 10/01/23 10/02/23 10/02/23 18:59 06:59 18:59 Weight 117.934 kg Other: Voiding Method Toilet Toilet Toilet Urinal Urinal Urinal # Voids 3 3 - Exam GENERAL DESCRIPTION: An elderly male lying in bed in no distress RESPIRATORY SYSTEM: Unlabored breathing , decreased breath sounds at bases HEART: S1 S2 regular rate and rhythm , ABDOMEN: Soft , no tenderness EXTREMITIES: Left big toe is currently dressed minimal drainage on the dressing - Labs CBC & Chem 7: 10/02/23 06:31 10/03/23 06:14 Labs: Abnormal Lab Results - Last 24 Hours (Table) 10/01/23 10/01/23 10/01/23 Range/Units 11:53 17:09 21:00 RBC (4.40-5.60) X 10*6/uL Hct (39.6-50.0) % Glucose (74-99) mg/dL POC Glucose (mg/dL) 221 H 195 H 279 H (70-110) mg/dL 10/02/23 10/02/23 10/02/23 Range/Units 06:31 06:31 07:26 RBC 4.38 L (4.40-5.60) X 10*6/uL Hct 39.2 L (39.6-50.0) % Glucose 196 H (74-99) mg/dL POC Glucose (mg/dL) 231 H (70-110) mg/dL Microbiology - Last 24 Hours (Table) 09/30/23 09:46 Gram Stain - Final Toe - Left First Wound Culture - Final Proteus mirabilis 09/30/23 17:38 Gram Stain - Preliminary Toe - Left First Wound Culture - Preliminary Gram Neg Bacilli Presumptive Staph aureus 09/29/23 17:40 Blood Culture - Preliminary Blood 09/29/23 17:10 Blood Culture - Preliminary Blood Assessment and Plan (1) Allergy to multiple antibiotics Current Visit: Yes Status: Acute Code(s): Z88.1 - ALLERGY STATUS TO OTHER ANTIBIOTIC AGENTS SNOMED Code(s): 943318390 (2) Cellulitis of left toe Current Visit: Yes Status: Acute Code(s): L03.032 - CELLULITIS OF LEFT TOE SNOMED Code(s): 91159115 (3) Diabetic foot ulcer Current Visit: No Status: Acute Code(s): E11.621 - TYPE 2 DIABETES MELLITUS WITH FOOT ULCER; L97.509 - NON-PRESSURE CHRONIC ULCER OTH PRT UNSP FOOT W UNSP SEVERITY SNOMED Code(s): 377854362 Plan: 1patient with extensive left big toe diabetic foot infection concerning for infected callus and underlying abscess also with evidence of infective nailbed w hich has fallen off we will need to cover for the polymicrobial liu associated with diabetic foot infection. 2patient with a penicillin and Levaquin allergies that will limit number of antibiotics safe to use, patient evaluated about his penicillin allergy would like to try it and she was given a dose of oral amoxicillin 3-patient is status post excisional debridement of the left big toe did not mention any extension down to the bones still clinical suspicion is high for underlying osteomyelitis bone scan is currently in progress results will be forwarded patient is covered with the vancomycin cefepime and Flagyl with the discharge antibiotic on the basis of final cultures multiple question concern were answered Dictation was produced using [employer] dictation software. please excuse any grammatical, word or spelling errors. Time with Patient: Less than 30
--- NOTE | 2023-10-03 11:17 | P.PN ---
Subjective Progress Note Date: 10/03/23 this is a 58-year-old male patient of Dr. Tavares presented to ER with concerns of left toe foot infection.patient states he is dealing with what he thought was a fungus to his left toe over the past few months. He was evaluated at Dr. Gonsalez's office was sent over for concerns of abscess underneath the toenail. Patient has past medical history of diabetes mellitus, GERD, hypertension, osteomyelitis and ex-smoker.laboratory feeling of WBC 7.2, hemoglobin 14.5, creatinine 1.26 bun 28 initial lactic acid 2. 1 repeat 1.1.foot x-ray completed in ER showing soft tissue swelling of the greater toe without evidence for osseous erosion at this time severe degenerative changes of the joints at the midfoot with alkalosis. Current vital signs temp 98.0, heart rate 66, blood pressure 118/69, pulse ox 97 on room air. At this time patient was started on IV vancomycin and infectious disease and vascular surgery consulted On 10/01/2023 for patient's alert and oriented 3. Patient underwent debridement with vascular surgery yesterday. Patient remains on cefepime Flagyl and vancomycin.current vital signs temp 97.6, heart rate 60, respiratory rate 14, blood pressure 134/77 with pulse ox 97% on room air. Patient denies chest pain or shortness breath. Patient denies nausea vomiting or diarrhea. Patient denies any urinary burning or frequency on 10/02/2023 patient was seen and examined on the medical floor, he is complaining of mild pain in his foot otherwise he denies any complaints, there is no fever or chills no headache or dizziness no chest pain no shortness of breath no cough, no nausea or vomiting no abdominal pain no diarrhea and no urinary symptoms. At this time we are awaiting culture results and recommendation for antibiotic at discharge. on 10/03/2023 patient is alert and oriented 3. Discussed case with infectious disease awaiting sensitivity likely will be finalized by tomorrow. Patient remains on IV antibiotics. Current vital signs temp 98.4, heart rate 61, respiratory rate 16, blood pressure 124/77 with a pulse ox of 96% on room air patient denies chest pain or shortness of breath. Patient denies nausea vomiting or diarrhea. Patient denies any urinary burning or frequency. Patient remains on vancomycin and cefepime and Flagyl.bone scan completed showing mild uptake on all 3 phases within the left big toe suspicious for osteomyelitis Objective - Vital Signs Vital signs: Vital Signs Temp 98.4 F 10/03/23 07:03 Pulse 61 10/03/23 07:03 Resp 16 10/03/23 07:03 BP 124/77 10/03/23 07:03 Pulse Ox 96 10/03/23 07:03 FiO2 Intake & Output 10/02/23 10/03/23 10/03/23 18:59 06:59 18:59 Intake Total 500 590 Balance 500 590 Intake: Intake, IV Titration 500 Amount Vancomycin 1,500 mg In 500 Sodium Chloride 0.9% 500 ml 500 ml @ 167 mls/hr IVPB Q12HR [facility] Rx#: [id number] Oral 590 Other: Voiding Method Toilet Toilet Urinal Urinal # Voids 2 2 - Exam Head normocephalic Neck supple Lungs clear to auscultation bilaterally no wheezing or crackles Heart regular rate and rhythm S1-S2, no rub or gallop Abdomen is soft nontender nondistended positive bowel sounds no hepatosplenomegaly Extremities no edema. Left greater toe nail thickened with yellow drainage Neuro alert and orientated to 3 - Labs CBC & Chem 7: 10/02/23 06:31 10/03/23 06:14 Labs: Abnormal Lab Results - Last 24 Hours (Table) 10/02/23 10/02/23 10/02/23 Range/Units 06:31 06:31 11:58 RBC 4.38 L (4.40-5.60) X 10*6/uL Hct 39.2 L (39.6-50.0) % Glucose 196 H (74-99) mg/dL POC Glucose (mg/dL) 277 H (70-110) mg/dL 10/02/23 10/02/23 10/03/23 Range/Units 17:03 20:11 07:01 RBC (4.40-5.60) X 10*6/uL Hct (39.6-50.0) % Glucose (74-99) mg/dL POC Glucose (mg/dL) 331 H 205 H 236 H (70-110) mg/dL Microbiology - Last 24 Hours (Table) 09/29/23 17:40 Blood Culture - Preliminary Blood 09/29/23 17:10 Blood Culture - Preliminary Blood 09/30/23 09:46 Anaerobic Culture - Preliminary Toe - Left First 09/30/23 09:46 Gram Stain - Final Toe - Left First Wound Culture - Final Proteus mirabilis 09/30/23 17:38 Gram Stain - Preliminary Toe - Left First Wound Culture - Preliminary Gram Neg Bacilli Presumptive Staph aureus Assessment and Plan Assessment: 1. Cellulitis and abscess to left foot. 2. History of osteomyelitis with MSSA 3. History of diabetes mellitus type 2 4. History of essential hypertension 5. History of MRSA 6. History of GERD 7. Ex-smoker At this time patient will be admitted Patient started on IV vancomycin Wound blood cultures ordered Status post debridement on 09/30/2023 Infectious disease and vascular surgery consulted Home meds resumed Repeat labs ordered
[2023-10-03 11:56] LABS: Glucose,Whole Blood 248 mg/dL (70-110)
[2023-10-03 17:06] LABS: Glucose,Whole Blood 198 mg/dL (70-110)
[2023-10-03 19:37] LABS: Glucose,Whole Blood 306 mg/dL (70-110)
--- NOTE | 2023-10-03 22:02 | P.PN ---
Subjective Progress Note Date: 10/03/23 Principal diagnosis: Reason for follow-up is left big toe diabetic foot infection Patient is a 58-year-old male with a past medical history significant for diabetes mellitus hypertension reflux in this patient who did have history of right diabetic foot infection status post right transmetatarsal amputation patient now presents to hospital with worsening infection to the left big toe. In this patient was status post excisional debridement of the left great toe com pleted on 09/30/2023. On today's evaluation that is 10/03/2023, patient has been afebrile, patient is breathing comfortably and is currently on room air, patient denies having any significant cough no chest pain shortness of breath, patient denies nausea vomiting or diarrhea and no abdominal pain currently denies having any worsening pain to the left big toe area and the patient was able to tolerate amoxicillin without any problem. Patient did have a creatinine 1.04 no CBC was done today the OR culture currently growing Proteus and MSSA and gram-negative with ID sensitivities pending anaerobe culture have been negative Objective - Vital Signs Vital signs: Vital Signs Temp 98.4 F 10/03/23 07:03 Pulse 61 10/03/23 07:03 Resp 16 10/03/23 08:00 BP 124/77 10/03/23 07:03 Pulse Ox 96 10/03/23 07:03 FiO2 Intake & Output 10/02/23 10/03/23 10/03/23 18:59 06:59 18:59 Intake Total 500 590 Balance 500 590 Intake: Intake, IV Titration 500 Amount Vancomycin 1,500 mg In 500 Sodium Chloride 0.9% 500 ml 500 ml @ 167 mls/hr IVPB Q12HR [facility] Rx#: [id number] Oral 590 Other: Voiding Method Toilet Toilet Toilet Urinal Urinal Urinal # Voids 2 2 - Exam GENERAL DESCRIPTION: An elderly male lying in bed in no distress RESPIRATORY SYSTEM: Unlabored breathing , decreased breath sounds at bases HEART: S1 S2 regular rate and rhythm , ABDOMEN: Soft , no tenderness EXTREMITIES: Left big toe is currently dressed minimal drainage on the dressing - Labs CBC & Chem 7: 10/02/23 06:31 10/03/23 06:14 Labs: Abnormal Lab Results - Last 24 Hours (Table) 10/02/23 10/02/23 10/02/23 Range/Units 11:58 17:03 20:11 POC Glucose (mg/dL) 277 H 331 H 205 H (70-110) mg/dL 10/03/23 Range/Units 07:01 POC Glucose (mg/dL) 236 H (70-110) mg/dL Microbiology - Last 24 Hours (Table) 09/30/23 17:38 Gram Stain - Preliminary Toe - Left First Wound Culture - Preliminary Proteus mirabilis Staphylococcus aureus Gram Neg Bacilli 09/29/23 17:40 Blood Culture - Preliminary Blood 09/29/23 17:10 Blood Culture - Preliminary Blood 09/30/23 09:46 Anaerobic Culture - Preliminary Toe - Left First 09/30/23 09:46 Gram Stain - Final Toe - Left First Wound Culture - Final Proteus mirabilis Assessment and Plan (1) Allergy to multiple antibiotics Current Visit: Yes Status: Acute Code(s): Z88.1 - ALLERGY STATUS TO OTHER ANTIBIOTIC AGENTS SNOMED Code(s): 290557898 (2) Cellulitis of left toe Current Visit: Yes Status: Acute Code(s): L03.032 - CELLULITIS OF LEFT TOE SNOMED Code(s): 12923944 (3) Diabetic foot ulcer Current Visit: No Status: Acute Code(s): E11.621 - TYPE 2 DIABETES MELLITUS WITH FOOT ULCER; L97.509 - NON-PRESSURE CHRONIC ULCER OTH PRT UNSP FOOT W UNSP SEVERITY SNOMED Code(s): 538831266 Plan: 1patient with extensive left big toe diabetic foot infection concerning for infected callus and underlying abscess also with evidence of infective nailbed which has fallen off we will need to cover for the polymicrobial liu associated with diabetic foot infection. 2patient with a penicillin and Levaquin allergies that will limit number of antibiotics safe to use, patient evaluated about his penicillin allergy would like to try it and she was given a dose of oral amoxicillin 3-patient is status post excisional debridement of the left big toe did not mention any extension down to the bones bone scan with a differential of osteomyelitis versus cellulitis, local culture currently growing MSSA Proteus a nd gram-negative ID sensitivities pending we will keep the patient cefepime discontinue vancomycin discharge antibiotics once the sensitivities on the third pathogen is available this has been discussed in detail with the patient as well as admitting team Dictation was produced using [employer] software. please excuse any grammatical, word or spelling errors. Time with Patient: Less than 30
[2023-10-03] MEDS: CEFEPIME 2 GM in SODIUM CHLORIDE 0.9% 100 ML IVPB SCH (23:56)
[2023-10-04 01:58] VITALS: RESP 18
[2023-10-04 05:20] LABS: ALT 38 U/L (4-49); AST 32 U/L (17-59); African American GFR (CKD) >90 (>60 ml/min/1.73 sqM); Albumin 3.8 g/dL (3.5-5.0); Albumin/Globulin Ratio 1.4; Alkaline Phosphatase 93 U/L (38-126); Anion Gap 7 mmol/L; Blood Urea Nitrogen 16 mg/dL (9-20); Calcium 9.1 mg/dL (8.4-10.2); Carbon Dioxide 21 mmol/L (22-30); Chloride 107 mmol/L (98-107); Globulin 2.7 g/dL; Glucose 190 mg/dL (74-99); Non-African American GFR(CKD) 89 (>60 ml/min/1.73 sqM); Potassium 3.9 mmol/L (3.5-5.1); Sodium 135 mmol/L (137-145); Total Bilirubin 0.7 mg/dL (0.2-1.3); Total Protein 6.5 g/dL (6.3-8.2)
[2023-10-04 07:19] LABS: Glucose,Whole Blood 207 mg/dL (70-110)
[2023-10-04 09:21] LABS: Basophils # (A) 0.04 X 10*3/uL (0.00-0.10); Basophils % (A) 0.6 %; Eosinophils # (A) 0.16 X 10*3/uL (0.04-0.35); Eosinophils % (A) 2.3 %; HCT 39.1 % (39.6-50.0); HGB 13.8 g/dL (13.0-17.0); Lymphocytes # (A) 3.05 X 10*3/uL (0.90-5.00); Lymphocytes % (A) 43.6 %; MCH 30.5 pg (27.0-32.0); MCHC 35.3 g/dL (32.0-37.0); MCV 86.3 FL (80.0-97.0); Mean Platelet Volume 9.6 FL (9.5-12.2); Monocytes # (A) 0.53 X 10*3/uL (0.20-1.00); Monocytes % (A) 7.6 %; NRBC Per 100 WBC 0 X 10*3/uL (0.00-0.01); Neutrophils # (A) 3.16 X 10*3/uL (1.80-7.70); Neutrophils % (A) 45.2 %; Platelet Count 174 X 10*3/uL (140-440); RBC 4.53 X 10*6/uL (4.40-5.60); RDW 12.3 % (11.5-14.5); WBC 6.99 X 10*3/uL (4.50-10.00)
[2023-10-04 11:52] LABS: Glucose,Whole Blood 329 mg/dL (70-110)
[2023-10-04 12:28] VITALS: BP 146/92; PULSE 74; TEMP 97.8
--- NOTE | 2023-10-04 13:42 | P.DS ---
Providers Date of admission: 09/29/23 18:39 Expected date of discharge: 10/04/23 Attending physician: Ree Hernandez Consults: 09/29/23 19:05 Consult Physician Urgent Consulting Provider: Clarence Tavares Consult Reason/Comments: left foot cellulitis Do you want consulting provider notified?: Yes Primary care physician: Sandeep Tavares Hospital Course: Diagnosis on discharge: 1. Cellulitis and abscess to left foot. 2. History of osteomyelitis with MSSA 3. History of diabetes mellitus type 2 4. History of essential hypertension 5. History of MRSA 6. History of GERD 7. Ex-smoker Hospital course: this is a 58-year-old male patient of Dr. Tavares presented to ER with concerns of left toe foot infection.patient states he is dealing with what he thought was a fungus to his left toe over the past few months. He was evaluated at Dr. Gonsalez's office was sent over for concerns of abscess underneath the toenail. Patient has past medical history of diabetes mellitus, GERD, hypertension, osteomyelitis and ex-smoker.laboratory feeling of WBC 7.2, hemoglobin 14.5, creatinine 1.26 bun 28 initial lactic acid 2. 1 repeat 1.1.foot x-ray completed in ER showing soft tissue swelling of the greater toe without evidence for osseous erosion at this time severe degenerative changes of the joints at the midfoot with alkalosis. Current vital signs temp 98.0, heart rate 66, blood pressure 118/69, pulse ox 97 on room air. At this time patient was started on IV vancomycin and infectious disease and vascular surgery consulted On 10/01/2023 for patient's alert and oriented 3. Patient underwent debridement with vascular surgery yesterday. Patient remains on cefepime Flagyl and vancomycin.current vital signs temp 97.6, heart rate 60, respiratory rate 14, blood pressure 134/77 with pulse ox 97% on room air. Patient denies chest pain or shortness breath. Patient denies nausea vomiting or diarrhea. Patient denies any urinary burning or frequency on 10/02/2023 patient was seen and examined on the medical floor, he is complaining of mild pain in his foot otherwise he denies any complaints, there is no fever or chills no headache or dizziness no chest pain no shortness of breath no cough, no nausea or vomiting no abdominal pain no diarrhea and no urinary symptoms. At this time we are awaiting culture results and recommendation for antibiotic at discharge. on 10/03/2023 patient is alert and oriented 3. Discussed case with infectious disease awaiting sensitivity likely will be finalized by tomorrow. Patient remains on IV antibiotics. Current vital signs temp 98.4, heart rate 61, respiratory rate 16, blood pressure 124/77 with a pulse ox of 96% on room air patient denies chest pain or shortness of breath. Patient denies nausea vomiting or diarrhea. Patient denies any urinary burning or frequency. Patient remains on vancomycin and cefepime and Flagyl.bone scan completed showing mild uptake on all 3 phases within the left big toe suspicious for osteomyelitis On 10/04/2023 patient was seen and examined on the medical floor, he is alert and oriented 3 in no apparent distress, there is no fever or chills no headache or dizziness no chest pain no shortness of breath no cough no nausea or vomiting no abdominal pain no diarrhea and no urinary symptoms. He was evaluated by Dr. Tavares infectious disease, and was cleared for discharge on the course of ceftriaxone, 2 g IV daily for 28 days, he will be followed as outpatient by infectious disease in care clinic. Patient Condition at Discharge: Stable Plan - Discharge Summary Discharge Rx Participant: No New Discharge Prescriptions: New cefTRIAXone [Rocephin] 2,000 mg IVP Q24HR #28 each Continue hydrALAZINE HCL [Apresoline] 25 mg PO BID #90 tab Clopidogrel [Plavix] 75 mg PO DAILY #30 tab metFORMIN HCL 1,000 mg PO BID Atorvastatin [Lipitor] 40 mg PO HS Dapagliflozin Propanediol [Farxiga] 10 mg PO DAILY #30 tab Spironolactone [Aldactone] 25 mg PO DAILY #30 tab Aspirin 81 mg PO DAILY #30 tab Furosemide [Lasix] 40 mg PO DAILY carvediloL [Coreg] 25 mg PO BID Discharge Medication List Dapagliflozin Propanediol [Farxiga] 10 mg PO DAILY #30 tab 12/10/22 [Rx] Aspirin 81 mg PO DAILY #30 tab 12/11/22 [Rx] Clopidogrel [Plavix] 75 mg PO DAILY #30 tab 12/11/22 [Rx] Spironolactone [Aldactone] 25 mg PO DAILY #30 tab 12/11/22 [Rx] hydrALAZINE HCL [Apresoline] 25 mg PO BID #90 tab 07/12/23 [Rx] Furosemide [Lasix] 40 mg PO DAILY 02/05/23 [History] metFORMIN HCL 1,000 mg PO BID 04/28/23 [History] Atorvastatin [Lipitor] 40 mg PO HS 09/29/23 [History] carvediloL [Coreg] 25 mg PO BID 09/29/23 [History] cefTRIAXone [Rocephin] 2,000 mg IVP Q24HR #28 each 10/04/23 [Rx] Follow up Appointment(s)/Referral(s): [facility], [NON-STAFF] - 1-2 Days [facility] [NON-STAFF] - 1-2 Days [facility] [NON-STAFF] - 1 Week Clarence Tavares MD [STAFF PHYSICIAN] - 1 Week
--- NOTE | 2023-10-04 21:30 | P.PN ---
Subjective Progress Note Date: 10/04/23 Principal diagnosis: Reason for follow-up is left big toe diabetic foot infection Patient is a 58-year-old male with a past medical history significant for diabetes mellitus hypertension reflux in this patient who did have history of right diabetic foot infection status post right transmetatarsal amputation patient now presents to hospital with worsening infection to the left big toe. In this patient was status post excisional debridement of the left great toe com pleted on 09/30/2023. On today's evaluation that is 10/04/2023,the patient denies any fever or any ch ills, patient is breathing comfortably on room air, the patient denies chest pain shortness of breath and no significant cough, patient denies abdominal pain, no nausea vomiting or diarrhea., The patient denies pain to the left foot. Patient white count 6.99 creatinine 0.96 cultures with MSSA Proteus and E. coli all sensitive to ceftriaxone Objective - Vital Signs Vital signs: Vital Signs Temp 97.8 F 10/04/23 11:28 Pulse 74 10/04/23 11:28 Resp 18 10/04/23 11:28 BP 146/92 10/04/23 11:28 Pulse Ox 95 10/04/23 11:28 FiO2 Intake & Output 10/03/23 10/04/23 10/04/23 18:59 06:59 18:59 Other: Voiding Method Toilet Toilet Toilet Urinal Urinal Urinal # Voids 1 2 # Bowel Movements 1 - Exam GENERAL DESCRIPTION: An elderly male lying in bed in no distress RESPIRATORY SYSTEM: Unlabored breathing , decreased breath sounds at bases HEART: S1 S2 regular rate and rhythm , ABDOMEN: Soft , no tenderness EXTREMITIES: Left big toe is currently dressed minimal drainage on the dressing - Labs CBC & Chem 7: 10/04/23 04:26 10/04/23 04:26 Labs: Abnormal Lab Results - Last 24 Hours (Table) 10/03/23 10/03/23 10/04/23 Range/Units 17:05 19:34 04:26 Hct (39.6-50.0) % Immature Gran # (0.00-0.04) X 10*3/uL Sodium 135 L (137-145) mmol/L Carbon Dioxide 21 L (22-30) mmol/L Glucose 190 H (74-99) mg/dL POC Glucose (mg/dL) 198 H 306 H (70-110) mg/dL 10/04/23 10/04/23 10/04/23 Range/Units 04:26 07:17 11:32 Hct 39.1 L (39.6-50.0) % Immature Gran # 0.05 H (0.00-0.04) X 10*3/uL Sodium (137-145) mmol/L Carbon Dioxide (22-30) mmol/L Glucose (74-99) mg/dL POC Glucose (mg/dL) 207 H 329 H (70-110) mg/dL Microbiology - Last 24 Hours (Table) 09/30/23 17:38 Gram Stain - Final Toe - Left First Wound Culture - Final Proteus mirabilis Staphylococcus aureus Escherichia coli 09/30/23 17:38 Anaerobic Culture - Final Toe - Left First 09/30/23 09:46 Anaerobic Culture - Final Toe - Left First Assessment and Plan (1) Allergy to multiple antibiotics Status: Acute Code(s): Z88.1 - ALLERGY STATUS TO OTHER ANTIBIOTIC AGENTS SNOMED Code(s): 935778029 (2) Cellulitis of left toe Status: Acute Code(s): L03.032 - CELLULITIS OF LEFT TOE SNOMED Code(s): 48151784 (3) Diabetic foot ulcer Status: Acute Code(s): E11.621 - TYPE 2 DIABETES MELLITUS WITH FOOT ULCER; L97.509 - NON-PRESSURE CHRONIC ULCER OTH PRT UNSP FOOT W UNSP SEVERITY SNOMED Code(s): 307161539 Plan: 1patient with extensive left big toe diabetic foot infection concerning for infected callus and underlying abscess also with evidence of infective nailbed which has fallen off we will need to cover for the polymicrobial liu assoc iated with diabetic foot infection. 2patient with a penicillin and Levaquin allergies that will limit number of antibiotics safe to use, patient evaluated about his penicillin allergy would like to try it and she was given a dose of oral amoxicillin 3-patient is status post excisional debridement of the left big toe did not mention any extension down to the bones bone scan with a differential of osteomyelitis versus cellulitis, local culture has been finalized with E. coli Proteus and MSSA all sensitive to ceftriaxone antibiotic switch Rocephin 2 g daily with the plan to finish therapy with IV Rocephin 2 g daily x 2 to 4 weeks and close outpatient follow-up prescription provided to the telehealth case manager Dictation was produced using [employer] software. please excuse any grammatical, word or spelling errors. Time with Patient: Less than 30
== END 2023-10-04 14:59 | disposition home health service (06) | DRG 264 ==
LOC: EC 13:39 → 4SSUR 18:39 → 1SOBS 19:22 → 5NMEDONC 10-01 15:06
PROVIDERS: ADMIT Internal Medicine; ATTEND Internal Medicine
PROC: 0JBR0ZZ Excision of Left Foot Subcutaneous Tissue and Fascia, Open Approach (ICD-10-PCS; principal; 2023-09-30)
PROC: 02HV33Z Insertion of Infusion Device into Superior Vena Cava, Percutaneous Approach (ICD-10-PCS; 2023-10-02)
PROC: B548ZZA Ultrasonography of Superior Vena Cava, Guidance (ICD-10-PCS; 2023-10-02)
PROC: B5181ZA Fluoroscopy of Superior Vena Cava using Low Osmolar Contrast, Guidance (ICD-10-PCS; 2023-10-02)
PROC: 05HC33Z Insertion of Infusion Device into Left Basilic Vein, Percutaneous Approach (ICD-10-PCS; 2023-10-02)
DX: E11.52 Type 2 diabetes mellitus with diabetic peripheral angiopathy with gangrene (principal); L02.612 Cutaneous abscess of left foot; L03.116 Cellulitis of left lower limb; E11.622 Type 2 diabetes mellitus with other skin ulcer; L03.032 Cellulitis of left toe; L98.499 Non-pressure chronic ulcer of skin of other sites with unspecified severity; K21.9 Gastro-esophageal reflux disease without esophagitis; B96.4 Proteus (mirabilis) (morganii) as the cause of diseases classified elsewhere; B95.61 Methicillin susceptible Staphylococcus aureus infection as the cause of diseases classified elsewhere; E11.621 Type 2 diabetes mellitus with foot ulcer; E11.69 Type 2 diabetes mellitus with other specified complication; I10 Essential (primary) hypertension; I25.10 Atherosclerotic heart disease of native coronary artery without angina pectoris; E11.42 Type 2 diabetes mellitus with diabetic polyneuropathy; B96.20 Unspecified Escherichia coli [E. coli] as the cause of diseases classified elsewhere; M19.072 Primary osteoarthritis, left ankle and foot; Z88.1 Allergy status to other antibiotic agents; Z88.0 Allergy status to penicillin; L97.522 Non-pressure chronic ulcer of other part of left foot with fat layer exposed; Z79.02 Long term (current) use of antithrombotics/antiplatelets; Z79.82 Long term (current) use of aspirin; Z79.84 Long term (current) use of oral hypoglycemic drugs; Z79.899 Other long term (current) drug therapy; Z80.1 Family history of malignant neoplasm of trachea, bronchus and lung; Z86.14 Personal history of Methicillin resistant Staphylococcus aureus infection; Z89.431 Acquired absence of right foot; Z95.5 Presence of coronary angioplasty implant and graft; E11.628 Type 2 diabetes mellitus with other skin complications
CPT/HCPCS: 36415; 36573; 78315; 80053; 80202; 82565; 83036; 83605; 85025; 85652; 86140; 87040; 87070; 87075; 87077; 87186; 87205; 96365; 96366; 96375; 99284

== ENCOUNTER → 2023-10-08 | Outpatient (CLI) | payer BC ==
[2023-10-08 15:24] LABS: ALT 46 U/L (10-49); AST 27 U/L (14-35); Chol/HDL Ratio 2.96 Ratio; LDL Cholesterol,Calculated 41.9 mg/dL (0.0-131.0)
== END | disposition home or self-care (01) ==
LOC: LABWHC1 07:52
PROVIDERS: ATTEND Internal Medicine Interventional Cardiology
DX: E78.2 Mixed hyperlipidemia (principal)
CPT/HCPCS: 36415; 80061; 84450; 84460

== ENCOUNTER → 2024-02-05 | Outpatient (CLI) | payer BC ==
[2024-02-05 15:47] LABS: Basophils # (A) 0.04 X 10*3/uL (0.00-0.10); Basophils % (A) 0.7 %; Eosinophils # (A) 0.11 X 10*3/uL (0.04-0.35); HCT 40.8 % (39.6-50.0); HGB 13.9 g/dL (13.0-17.0); Lymphocytes # (A) 2.03 X 10*3/uL (0.90-5.00); MCHC 34.1 g/dL (32.0-37.0); MCV 87.9 FL (80.0-97.0); Mean Platelet Volume 9.5 FL (9.5-12.2); Monocytes # (A) 0.36 X 10*3/uL (0.20-1.00); Monocytes % (A) 6.6 %; NRBC Per 100 WBC 0 X 10*3/uL (0.00-0.01); Platelet Count 224 X 10*3/uL (140-440); RBC 4.64 X 10*6/uL (4.40-5.60); RDW 12.9 % (11.5-14.5); WBC 5.48 X 10*3/uL (4.50-10.00)
[2024-02-05 15:48] LABS: Prealbumin 20.4 mg/dL (18.0-42.0)
[2024-02-05 16:00] LABS: Erythrocyte Sedimentation Rate 21 mm/Hr (0-20)
[2024-02-05 16:43] LABS: ALT 25 U/L (10-49); AST 17 U/L (14-35); Albumin 4.4 g/dL (3.8-4.9); Albumin/Globulin Ratio 1.69 Ratio (1.60-3.17); Alkaline Phosphatase 105 U/L (41-126); BUN/Creat Ratio 21.67 Ratio (12.00-20.00); Calcium 9.3 mg/dL (8.7-10.3); Carbon Dioxide 22.7 mmol/L (21.6-31.8); Chloride 100 mmol/L (96-109); Globulin 2.6 g/dL (1.6-3.3); Glucose 309 mg/dL (70-110); Potassium 4.5 mmol/L (3.5-5.5); Sodium 138 mmol/L (135-145); Total Bilirubin 0.6 mg/dL (0.3-1.2)
== END | disposition home or self-care (01) ==
LOC: LABWHC1 10:06
PROVIDERS: ATTEND Podiatrist
DX: L97.512 Non-pressure chronic ulcer of other part of right foot with fat layer exposed (principal)
CPT/HCPCS: 36415; 80053; 84134; 85025; 85652

== ENCOUNTER 2024-03-29 09:51 | Inpatient (IN) | payer BC ==
--- NOTE | 2024-03-29 10:24 | ED ---
Fever HPI - General Chief Complaint: Fever Stated Complaint: NVD,Fever Time Seen by Provider: 03/29/24 10:10 Source: patient, family, RN notes reviewed Mode of arrival: wheelchair Limitations: no limitations - History of Present Illness Initial Comments: 59-year-old male with history of CHF and diabetes presenting to the ER with chief complaint of right foot redness x 2 days with associated nausea, vomiting, and fevers. Patient has a history of partial right foot amputation and has been dealing with a right diabetic foot ulceration for the past month and has been following closely with his charge account clerk. States the ulceration has healed, however over the past couple of days the distal aspect of the right foot has become red, swollen, warm, and painful. He states he had these symptoms with a septic foot ulceration 3 years ago. Admits mild nasal congestion, denies cough, shortness of breath, chest pain, abdominal pain. - Related Data Home Medications Medication Instructions Recorded Confirmed Furosemide [Lasix] 40 mg PO DAILY 02/05/23 03/29/24 metFORMIN HCL 1,000 mg PO BID 04/28/23 03/29/24 Atorvastatin [Lipitor] 40 mg PO HS 09/29/23 03/29/24 carvediloL [Coreg] 25 mg PO BID 09/29/23 03/29/24 Previous Rx's Medication Instructions Recorded Dapagliflozin Propanediol [Farxiga] 10 mg PO DAILY #30 tab 12/10/22 Aspirin 81 mg PO DAILY #30 tab 12/11/22 Spironolactone [Aldactone] 25 mg PO DAILY #30 tab 12/11/22 hydrALAZINE HCL [Apresoline] 25 mg PO BID #90 tab 12/11/22 Allergies Allergy/AdvReac Type Severity Reaction Status Date / Time levofloxacin [From Levaquin] Allergy Swelling, Verified 03/29/24 13:21 RASH Penicillins Allergy Unknown Verified 03/29/24 13:21 Childhood Review of Systems ROS Statement: Those systems with pertinent positive or pertinent negative responses have been documented in the HPI. ROS Other: All systems not noted in ROS Statement are negative. Past Medical History Past Medical History: Diabetes Mellitus, GERD/Reflux, Hypertension Additional Past Medical History / Comment(s): osteomyelitis and pain left foot, stepped on kristen nail October 2018,hx neuropathy History of Any Multi-Drug Resistant Organisms: MRSA Date of last positivie culture/infection: march 2022 MDRO Source:: toe Past Surgical History: Tonsillectomy Additional Past Surgical History / Comment(s): endoscopy, middle toe rt foot removed ,lft 2nd toe tip removed Past Anesthesia/Blood Transfusion Reactions: No Reported Reaction Past Psychological History: No Psychological Hx Reported Smoking Status: Former smoker Past Alcohol Use History: None Reported Past Drug Use History: None Reported - Past Family History Mother Family Medical History: Cancer Additional Family Medical History / Comment(s): breast cancer Father Family Medical History: Cancer Additional Family Medical History / Comment(s): lung cancer Sister(s) Family Medical History: Cancer Additional Family Medical History / Comment(s): lung cancer General Exam Limitations: no limitations General appearance: alert, in no apparent distress Head exam: Present: atraumatic, normocephalic, normal inspection Respiratory exam: Present: normal lung sounds bilaterally. Absent: respiratory distress, wheezes, rales, rhonchi, stridor Cardiovascular Exam: Present: regular rate, normal rhythm, normal heart sounds. Absent: systolic murmur, diastolic murmur, rubs, gallop, clicks GI/Abdominal exam: Present: soft, normal bowel sounds. Absent: distended, tenderness, guarding, rebound, rigid Right Lower Leg exam: Present: normal inspection, full ROM. Absent: tenderness, swel ling Ankle exam: Present: normal inspection, full ROM. Absent: tenderness, swelling Foot/Toe exam: Present: full ROM, tenderness, swelling, erythema. Absent: normal inspection (All digits amputated from right foot. There is diffuse erythema and warmth diffusely on dorsal aspect of the right foot. No drainage or purulence. Tenderness to palpation.), abrasion, laceration Neurovascular tendon exam: Present: no vascular compromise. Absent: pulse deficit, abnormal cap refill, sensory deficit Neurological exam: Present: alert, oriented X3 Psychiatric exam: Present: normal affect, normal mood Skin exam: Present: warm, dry, intact, normal color. Absent: rash Course Vital Signs 03/29/24 03/29/24 03/29/24 10:00 12:39 12:42 Temperature 98.4 F 101.1 F H Pulse Rate 102 H 84 Respiratory 20 18 Rate Blood Pressure 130/74 129/77 O2 Sat by Pulse 95 96 Oximetry 03/29/24 16:17 Temperature Pulse Rate 69 Respiratory 16 Rate Blood Pressure 112/69 O2 Sat by Pulse Oximetry Medical Decision Making - Medical Decision Making Was pt. sent in by a medical professional or institution ([facility]o, FINANCIAL SALES MANAGER, urgent care, hospital, or half-way...) When possible be specific @ -No Did you speak to anyone other than the patient for history (EMS, parent, family, police, friend...)? What history was obtained from this source @ - supplemented history Did you review nursing and triage notes (agree or disagree)? Why? @ -I reviewed and agree with nursing and triage notes Were old charts reviewed (outside hosp., previous admission, EMS record, old EKG, old radiological studies, urgent care reports/EKG's, half-way records)? Report findings @ -No old charts were reviewed Differential Diagnosis (chest pain, altered mental status, abdominal pain women, abdominal pain men, vaginal bleeding, weakness, fever, dyspnea, syncope, headache, dizziness, GI bleed, back pain, seizure, CVA, palpatations, mental health, musculoskeletal)? @ -Differential Fever: Pneumonia, viral URI, endocarditis, myocarditis, pericarditis, otitis, sinusitis, peritonsillar Abscess, retropharyngeal Abscess, epiglottitis, boom tonitis, appendicitis, Lizzette cystitis, diverticulitis, hepatitis, colitis, UTI, PID, TOA, pyelonephritis, prostatitis, epididymitis, meningitis, encephalitis, pulmonary embolism, CVA, thyroid storm, pancreatitis, adrenal crisis, cavernous sinus thrombosis, this is not meant to be an all-inclusive list. EKG interpreted by me (3pts min.). @ -As above X-rays interpreted by me (1pt min.). @ -None done CT interpreted by me (1pt min.). @ -None done U/S interpreted by me (1pt. min.). @ -None done What testing was considered but not performed or refused? (CT, X-rays, U/S, labs)? Why? @ -None What meds were considered but not given or refused? Why? @ -None Did you discuss the management of the patient with other professionals (professionals i.e. [facility] Quintero, FINANCIAL SALES MANAGER, lab, RT, psych nurse, social media assistant, dental sales representative, teacher, medical information officer, vocational case manager)? Give summary @ -I spoke with Dr. Szymanski for admission Was smoking cessation discussed for >3mins.? @ -No Was critical care preformed (if so, how long)? @ -Yes, 45 minutes Were there social determinants of health that impacted care today? How? (Homelessness, low income, unemployed, alcoholism, drug addiction, transportation, low edu. Level, literacy, decrease access to med. care, [facility], rehab)? @ -No Was there de-escalation of care discussed even if they declined (Discuss DNR or withdrawal of care, Hospice)? DNR status @ -No What co-morbidities impacted this encounter? (DM, HTN, Smoking, COPD, CAD, Cancer, CVA, ARF, Chemo, Hep., AIDS, mental health diagnosis, sleep apnea, morbid obesity)? @ -None Was patient admitted / discharged? Hospital course, mention meds given and route, prescriptions, significant lab abnormalities, going to OR and other pertinent info. @ -Admitted. This is a 59-year-old male presenting with right foot redness x 2 days with nausea, vomiting, and fevers. Initially tachycardic at 102 bpm. Blood pressure is stable. On examination, right dorsal aspect of foot is erythematous, warm, and tender. DP pulses intact. EKG revealed normal sinus rhythm with no ST changes. Laboratory studies including CBC, CMP, CRP rem arkable for white blood cell count 16 with left shift, CO2 18, blood glucose 235, CRP 32. Blood cultures were taken. Patient was given 1500 IV fluid bolus and started on 130 cc IV fluids. Patient was started on IV cefepime and vancomycin. Upon reevaluation, patient is febrile at 101. Patient was given Ofirmev. Discussed all results with patient, all questions answered at bedside. I spoke with Dr. Szymanski for admission for right foot cellulitis with sepsis with infectious disease consultation. Undiagnosed new problem with uncertain prognosis? @ -No Drug Therapy requiring intensive monitoring for toxicity (Heparin, Nitro, Insulin, Cardizem)? @ -No Were any procedures done? @ -No Diagnosis/symptom? @ -Right foot cellulitis with sepsis Acute, or Chronic, or Acute on Chronic? @ -Acute Uncomplicated (without systemic symptoms) or Complicated (systemic symptoms)? @ -Complicated Side effects of treatment? @ -No Exacerbation, Progression, or Severe Exacerbation? @ -No Poses a threat to life or bodily function? How? (Chest pain, [place], [place], pneumonia, PE, COPD, DKA, ARF, appy, cholecystitis, CVA, Diverticulitis, Homicidal, Suicidal, threat to staff... and all critical care pts) @ -Yes - Lab Data Result diagrams: 03/29/24 10:55 03/29/24 10:55 Lab Results 03/29/24 03/29/24 03/29/24 Range/Units 10:55 10:55 10:55 WBC 16.4 H (3.8-10.6) k/uL RBC 4.44 (4.30-5.90) m/uL Hgb 13.9 (13.0-17.5) gm/dL Hct 39.5 (39.0-53.0) % MCV 88.8 (80.0-100.0) fL MCH 31.4 (25.0-35.0) pg MCHC 35.3 (31.0-37.0) g/dL RDW 13.9 (11.5-15.5) % Plt Count 126 L (150-450) k/uL MPV 8.0 Neutrophils % 85 % Lymphocytes % 9 % Monocytes % 5 % Eosinophils % 0 % Basophils % 0 % Neutrophils # 14.0 H (1.3-7.7) k/uL Lymphocytes # 1.4 (1.0-4.8) k/uL Monocytes # 0.8 (0-1.0) k/uL Eosinophils # 0.1 (0-0.7) k/uL Basophils # 0.0 (0-0.2) k/uL Sodium 134 L (137-145) mmol/L Potassium 3.7 (3.5-5.1) mmol/L Chloride 101 (98-107) mmol/L Carbon Dioxide 18 L (22-30) mmol/L Anion Gap 15 mmol/L BUN 18 (9-20) mg/dL Creatinine 1.13 (0.66-1.25) mg/dL Est GFR (CKD-EPI)AfAm 83 (>60 ml/min/1.73 sqM) Est GFR (CKD-EPI)NonAf 72 (>60 ml/min/1.73 sqM) Glucose 235 H (74-99) mg/dL Plasma Lactic Acid Andrey 1.6 (0.7-2.0) mmol/L Calcium 8.9 (8.4-10.2) mg/dL Total Bilirubin 2.4 H (0.2-1.3) mg/dL AST 19 (17-59) U/L ALT 23 (4-49) U/L Alkaline Phosphatase 65 (38-126) U/L C-Reactive Protein 32.7 H (<1.0) mg/dL Total Protein 6.9 (6.3-8.2) g/dL Albumin 4.2 (3.5-5.0) g/dL Influenza Type A (PCR) (Not Detectd) Influenza Type B (PCR) (Not Detectd) RSV (PCR) (Not Detectd) SARS-CoV-2 (PCR) (Not Detectd) 03/29/24 Range/Units 10:55 WBC (3.8-10.6) k/uL RBC (4.30-5.90) m/uL Hgb (13.0-17.5) gm/dL Hct (39.0-53.0) % MCV (80.0-100.0) fL MCH (25.0-35.0) pg MCHC (31.0-37.0) g/dL RDW (11.5-15.5) % Plt Count (150-450) k/uL MPV Neutrophils % % Lymphocytes % % Monocytes % % Eosinophils % % Basophils % % Neutrophils # (1.3-7.7) k/uL Lymphocytes # (1.0-4.8) k/uL Monocytes # (0-1.0) k/uL Eosinophils # (0-0.7) k/uL Basophils # (0-0.2) k/uL Sodium (137-145) mmol/L Potassium (3.5-5.1) mmol/L Chloride (98-107) mmol/L Carbon Dioxide (22-30) mmol/L Anion Gap mmol/L BUN (9-20) mg/dL Creatinine (0.66-1.25) mg/dL Est GFR (CKD-EPI)AfAm (>60 ml/min/1.73 sqM) Est GFR (CKD-EPI)NonAf (>60 ml/min/1.73 sqM) Glucose (74-99) mg/dL Plasma Lactic Acid Andrey (0.7-2.0) mmol/L Calcium (8.4-10.2) mg/dL Total Bilirubin (0.2-1.3) mg/dL AST (17-59) U/L ALT (4-49) U/L Alkaline Phosphatase (38-126) U/L C-Reactive Protein (<1.0) mg/dL Total Protein (6.3-8.2) g/dL Albumin (3.5-5.0) g/dL Influenza Type A (PCR) Not Detected (Not Detectd) Influenza Type B (PCR) Not Detected (Not Detectd) RSV (PCR) Not Detected (Not Detectd) SARS-CoV-2 (PCR) Not Detected (Not Detectd) - EKG Data -: EKG Interpreted by Me EKG Comments: EKG reveals normal sinus rhythm with no ST changes. Ventricular rate 93 bpm, IL interval 169, QRS duration 114, QT/QTc 349/400 Disposition Clinical Impression: Cellulitis of right foot, Sepsis Disposition: ADMITTED IP TO THIS HOSP Time of Disposition: 13:50
[2024-03-29] MEDS: ONDANSETRON 4 MG/2 ML VIAL IVP STA (11:03)
[2024-03-29 11:24] LABS: Basophils % (A) 0 %; Eosinophils # (A) 0.1 k/uL (0-0.7); Eosinophils % (A) 0 %; HCT 39.5 % (39.0-53.0); HGB 13.9 gm/dL (13.0-17.5); Lymphocytes # (A) 1.4 k/uL (1.0-4.8); Lymphocytes % (A) 9 %; MCH 31.4 pg (25.0-35.0); MCHC 35.3 g/dL (31.0-37.0); MCV 88.8 fL (80.0-100.0); Monocytes # (A) 0.8 k/uL (0-1.0); Monocytes % (A) 5 %; Neutrophils % (A) 85 %; Platelet Count 126 k/uL (150-450); RBC 4.44 m/uL (4.30-5.90); RDW 13.9 % (11.5-15.5); WBC 16.4 k/uL (3.8-10.6)
[2024-03-29 11:29] LABS: ALT 23 U/L (4-49); AST 19 U/L (17-59); African American GFR (CKD) 83 (>60 ml/min/1.73 sqM); Albumin 4.2 g/dL (3.5-5.0); Alkaline Phosphatase 65 U/L (38-126); Anion Gap 15 mmol/L; Blood Urea Nitrogen 18 mg/dL (9-20); Calcium 8.9 mg/dL (8.4-10.2); Carbon Dioxide 18 mmol/L (22-30); Chloride 101 mmol/L (98-107); Glucose 235 mg/dL (74-99); Non-African American GFR(CKD) 72 (>60 ml/min/1.73 sqM); Potassium 3.7 mmol/L (3.5-5.1); Sodium 134 mmol/L (137-145); Total Bilirubin 2.4 mg/dL (0.2-1.3); Total Protein 6.9 g/dL (6.3-8.2)
[2024-03-29 12:12] LABS: C Reactive Protein 32.7 mg/dL (<1.0)
[2024-03-29] MEDS ORDERED: VANCOMYCIN IV PER PHARMACY 1 EACH MISC MISCELLANE PRN (12:29)
[2024-03-29] MEDS: CEFEPIME 2 GM in SODIUM CHLORIDE 0.9% 100 ML IVPB STA (12:56)
[2024-03-29] MEDS: SODIUM CHLORIDE 0.9% 1,000 ML IV STA ×2 (12:57→15:36)
[2024-03-29] MEDS ORDERED: NALOXONE 0.4 MG/ML 1 ML VIAL IV PRN (13:48)
[2024-03-29] MEDS: ACETAMINOPHEN IV (For NPO) 1,000 MG in EMPTY BAG 1 BAG IVPB STA (13:53)
--- NOTE | 2024-03-29 14:08 | P.HPIM ---
History of Present Illness Patient is a very pleasant 59-year-old male came in with complaints of redness in the right leg along with fever elevated white count and anion gap possibly lactic acidosis. Patient had midfoot amputation and now the stump appears to be infected with redness which has been getting worse localized of temperature and also has a plantar ulcer which is pretty small may be stage II. Patient does have leukocytosis as well patient is diabetic with diabetic neuropathy. REVIEW OF SYSTEMS: All other systems are negative except those mentioned in the HPI PHYSICAL EXAMINATION: GENERAL: The patient is alert and oriented x3, not in any acute distress. Well developed, well nourished. HEENT: Pupils are round and equally reacting to light. EOMI. No scleral icterus. No conjunctival pallor. Normocephalic, atraumatic. No pharyngeal erythema. No thyromegaly. CARDIOVASCULAR: S1 and S2 present. No murmurs, rubs, or gallops. PULMONARY: Chest is clear to auscultation, no wheezing or crackles. ABDOMEN: Soft, nontender, nondistended, normoactive bowel sounds. No palpable organomegaly. MUSCULOSKELETAL: No joint swelling or deformity. EXTREMITIES: No cyanosis, clubbing, or pedal edema. NEUROLOGICAL: Gross neurological examination did not reveal any focal deficits. SKIN: Patient has amputation of right midfoot and the stump area appears to be infected with localized of temperature. Patient does have a ulcer on the plantar surface may be as stage II which is pretty small Assessment and plan -Diabetic foot infection wound infection and cellulitis: Patient will continue on vancomycin and cefepime will obtain blood cultures infectious disease will be consulted wound care will be consulted. Patient had amputation of the midfoot for osteomyelitis and he has a history of MRSA in the past -Type 2 diabetes mellitus -Hypertension -Congestive heart failure chronic systolic function EF of around 40 to 45% in past without any acute exacerbation -Hyperlipidemia DVT prophylaxis: Lovenox Past Medical History Past Medical History: Diabetes Mellitus, GERD/Reflux, Hypertension Additional Past Medical History / Comment(s): osteomyelitis and pain left foot, stepped on kristen nail October 2018,hx neuropathy History of Any Multi-Drug Resistant Organisms: MRSA Date of last positivie culture/infection: march 2022 MDRO Source:: toe Past Surgical History: Tonsillectomy Additional Past Surgical History / Comment(s): endoscopy, middle toe rt foot removed ,lft 2nd toe tip removed Past Anesthesia/Blood Transfusion Reactions: No Reported Reaction Past Psychological History: No Psychological Hx Reported Smoking Status: Former smoker Past Alcohol Use History: None Reported Past Drug Use History: None Reported - Past Family History Mother Family Medical History: Cancer Additional Family Medical History / Comment(s): breast cancer Father Family Medical History: Cancer Additional Family Medical History / Comment(s): lung cancer Sister(s) Family Medical History: Cancer Additional Family Medical History / Comment(s): lung cancer Medications and Allergies Home Medications Medication Instructions Recorded Confirmed Type Dapagliflozin Propanediol [Farxiga] 10 mg PO DAILY #30 tab 12/10/22 03/29/24 Rx Aspirin 81 mg PO DAILY #30 tab 12/11/22 03/29/24 Rx Spironolactone [Aldactone] 25 mg PO DAILY #30 tab 12/11/22 03/29/24 Rx hydrALAZINE HCL [Apresoline] 25 mg PO BID #90 tab 12/11/22 03/29/24 Rx Furosemide [Lasix] 40 mg PO DAILY 02/05/23 03/29/24 History metFORMIN HCL 1,000 mg PO BID 04/28/23 03/29/24 History Atorvastatin [Lipitor] 40 mg PO HS 09/29/23 03/29/24 History carvediloL [Coreg] 25 mg PO BID 09/29/23 03/29/24 History Allergies Allergy/AdvReac Type Severity Reaction Status Date / Time levofloxacin [From Levaquin] Allergy Swelling, Verified 03/29/24 13:21 RASH Penicillins Allergy Unknown Verified 03/29/24 13:21 Childhood Physical Exam Vitals: Vital Signs Temp Pulse Resp BP Pulse Ox 03/29/24 12:42 101.1 F H 03/29/24 12:39 84 18 129/77 96 03/29/24 10:00 98.4 F 102 H 20 130/74 95 Intake and Output 03/28/24 03/29/24 03/29/24 22:59 06:59 14:59 Other: Weight 113.398 kg Results CBC & Chem 7: 03/29/24 10:55 03/29/24 10:55 Labs: Abnormal Lab Results - Last 24 Hours (Table) 03/29/24 03/29/24 Range/Units 10:55 10:55 WBC 16.4 H (3.8-10.6) k/uL Plt Count 126 L (150-450) k/uL Neutrophils # 14.0 H (1.3-7.7) k/uL Sodium 134 L (137-145) mmol/L Carbon Dioxide 18 L (22-30) mmol/L Glucose 235 H (74-99) mg/dL Total Bilirubin 2.4 H (0.2-1.3) mg/dL C-Reactive Protein 32.7 H (<1.0) mg/dL
[2024-03-29] MEDS: VANCOMYCIN 1,750 MG in SODIUM CHLORIDE 0.9% 500 ML 500 ML IVPB ONE (15:32)
[2024-03-29] MEDS: SODIUM CHLORIDE 0.9% 500 ML 500 ML IV STA (15:37)
[2024-03-29] MEDS: SODIUM CHLORIDE 0.9% 1,000 ML IV SCH (15:44)
[2024-03-29 16:50] LABS: Glucose,Whole Blood 267 mg/dL (70-110)
[2024-03-29] MEDS: carvediloL 12.5 MG TAB PO SCH (17:05)
[2024-03-29] MEDS: INSULIN ASPART (NovoLOG) 100 UNIT/ML VIAL SQ SCH (17:06)
--- NOTE | 2024-03-29 19:57 | CT ---
EXAMINATION TYPE: CT foot RT w con DATE OF EXAM: 03/29/2024 7:04 PM COMPARISON: CT 02/05/2023. CLINICAL INDICATION: Male, 59 years old with history of abscess; PHH, Rt foot abscess. TECHNIQUE: Axial images were obtained of the CT foot RT w con, Additional coronal and sagittal reform atted images and soft tissue and bone window were obtained for review. 3-D reconstruction was created on a separate workstation. Contrast used:100 ml mL of Isovue 370 with IV Contrast, (None if empty) Oral contrast used: (None if empty) CT DLP: 175 mGycm, Automated exposure control for dose reduction was used. FINDINGS: Osseous demineralization limits evaluation. There is postsurgical changes of the phalanges 1 through 5 with heterotrophic bone calcification near the amputation site of the first digit. There is diffuse soft tissue swelling and likely fluid collections around the first digit. No definitive os seous erosion to suggest osteomyelitis. No evidence of fracture or dislocation. Mild multifocal degen eration with joint space narrowing osteophyte formation. IMPRESSION: Postsurgical of the foot with soft tissue edema and suspected fluid collection around the first digit . Further evaluation MRI foot with and without contrast recommended. No definitive evidence for osteo myelitis at this time. Podiatry consultation. [facility], , 03/29/2024 7:55 PM
[2024-03-29] MEDS: hydrALAZINE HCL 25 MG TAB PO SCH (19:59)
[2024-03-29] MEDS: ATORVASTATIN 40 MG TAB PO SCH (19:59)
--- NOTE | 2024-03-29 21:36 | P.CONS ---
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 and has almost healed patient now presenting to the hospital increasing swelling redness and discomfort to the right foot that has been getting worse over the last 1 day patient denies any history of any trauma trauma has been complaining of mostly diffuse swelling redness to the right foot describing pain to be sharp moderate intensity without radiation patient did have some chills did have a fever of 101.1 F on arrival to the ER patient was tachycardic but not hypotensive or hypoxic and no need for supplemental oxygen he did have a white count of 16.4 with a left shift creatinine is 1.13 liver isms are normal influenza RSV COVID t esting has been negative patient was started on vancomycin infectious disease was consulted for further management Review of Systems Positive point and negatives has been mentioned in the HPI, complete review of systems was performed and all other systems are negative Past Medical History Past Medical History: Diabetes Mellitus, GERD/Reflux, Hypertension Additional Past Medical History / Comment(s): osteomyelitis and pain left foot, stepped on kristen nail October 2018,hx neuropathy History of Any Multi-Drug Resistant Organisms: MRSA Year Discovered:: march 2022 MDRO Source:: toe Past Surgical History: Tonsillectomy Additional Past Surgical History / Comment(s): endoscopy, middle toe rt foot removed ,lft 2nd toe tip removed Past Anesthesia/Blood Transfusion Reactions: No Reported Reaction Past Psychological History: No Psychological Hx Reported Smoking Status: Former smoker Past Alcohol Use History: None Reported Past Drug Use History: None Reported - Past Family History Mother Family Medical History: Cancer Additional Family Medical History / Comment(s): breast cancer Father Family Medical History: Cancer Additional Family Medical History / Comment(s): lung cancer Sister(s) Family Medical History: Cancer Additional Family Medical History / Comment(s): lung cancer Medications and Allergies Home Medications Medication Instructions Recorded Confirmed Type Dapagliflozin Propanediol [Farxiga] 10 mg PO DAILY #30 tab 12/10/22 03/29/24 Rx Aspirin 81 mg PO DAILY #30 tab 12/11/22 03/29/24 Rx Spironolactone [Aldactone] 25 mg PO DAILY #30 tab 12/11/22 03/29/24 Rx hydrALAZINE HCL [Apresoline] 25 mg PO BID #90 tab 12/11/22 03/29/24 Rx Furosemide [Lasix] 40 mg PO DAILY 02/05/23 03/29/24 History metFORMIN HCL 1,000 mg PO BID 04/28/23 03/29/24 History Atorvastatin [Lipitor] 40 mg PO HS 09/29/23 03/29/24 History carvediloL [Coreg] 25 mg PO BID 09/29/23 03/29/24 History Allergies Allergy/AdvReac Type Severity Reaction Status Date / Time levofloxacin [From Levaquin] Allergy Swelling, Verified 03/29/24 13:21 RASH Penicillins Allergy Unknown Verified 03/29/24 13:21 Childhood Physical Exam Vitals: Vital Signs Temp Pulse Resp BP Pulse Ox 03/29/24 12:42 101.1 F H 03/29/24 12:39 84 18 129/77 96 03/29/24 10:00 98.4 F 102 H 20 130/74 95 Intake and Output 03/29/24 03/29/24 03/29/24 06:59 14:59 22:59 Other: Weight 113.398 kg GENERAL DESCRIPTION: Middle-aged male lying in bed, no distress. No tachypnea or accessory muscle of respiration use. HEENT: Shows Pallor , no scleral icterus. Oral mucous membrane is dry. No pharyngeal erythema or thrush NECK: Trachea central, no thyromegaly. LUNGS: Unlabored breathing. Clear to auscultation anteriorly. No wheeze or crackle. HEART: S1, S2, regular rate and rhythm. No loud murmur ABDOMEN: Soft, no tenderness , guarding or rigidity, no organomegaly EXTREMITIES: Right foot with a transmetatarsal potation did have diffuse swelling and redness which is warm and tender to touch no open wound or any drainage SKIN: No rash, no masses palpable. NEUROLOGICAL: The patient is awake, alert, oriented x3, mood and affect normal. Results CBC & Chem 7: 03/29/24 10:55 03/29/24 10:55 Labs: Abnormal Lab Results - Last 24 Hours (Table) 03/29/24 03/29/24 Range/Units 10:55 10:55 WBC 16.4 H (3.8-10.6) k/uL Plt Count 126 L (150-450) k/uL Neutrophils # 14.0 H (1.3-7.7) k/uL Sodium 134 L (137-145) mmol/L Carbon Dioxide 18 L (22-30) mmol/L Glucose 235 H (74-99) mg/dL Total Bilirubin 2.4 H (0.2-1.3) mg/dL C-Reactive Protein 32.7 H (<1.0) mg/dL Assessment and Plan (1) Diabetic infection of right foot Current Visit: Yes Status: Acute Code(s): E11.628 - TYPE 2 DIABETES MELLITUS WITH OTHER SKIN COMPLICATIONS; L08.9 - LOCAL INFECTION OF THE SKIN AND SUBCUTANEOUS TISSUE, UNSP SNOMED Code(s): 141781496 (2) Sepsis Current Visit: Yes Status: Acute Code(s): A41.9 - SEPSIS, UNSPECIFIED ORGANISM SNOMED Code(s): 98263051 (3) Allergy to multiple antibiotics Current Visit: No Status: Acute Code(s): Z88.1 - ALLERGY STATUS TO OTHER ANTIBIOTIC AGENTS SNOMED Code(s): 148921608 Plan: 1patient presented to hospital with sepsis in this patient who did have fever tachycardia leukocytosis meeting criteria for SIRS/sepsis sources right diabetic infection in this patient presenting with diffuse swelling and redness and concern for possible abscess with previous multiple admission antibiotic exposure will need to cover for more resistant pathogen such as MRSA. 2patient with multiple antibiotic ALLERGIES that would limit the number of antibiotic safe to use. 3we will check a CT of right foot with contrast to make sure no evidence of any abscess fluid collection that may need to be drained. 4vancomycin pharmacy to dose target trough of 15 while watching kidney function and Vanco trough closely We will follow on clinical condition and cultures to further adjust medication if needed Thank you for this consultation we will follow the patient along with you Dictation was produced using [employer] dictation software. please excuse any gramm atical, word or spelling errors. Time with Patient: Greater than 30
[2024-03-29] MEDS: ONDANSETRON 4 MG/2 ML VIAL IVP PRN (21:53)
[2024-03-30] MEDS: VANCOMYCIN 1,750 MG in SODIUM CHLORIDE 0.9% 500 ML 500 ML IVPB SCH (00:02)
[2024-03-30 06:14] LABS: Glucose,Whole Blood 184 mg/dL (70-110)
[2024-03-30 06:22] LABS: HCT 36.5 % (39.0-53.0); HGB 12.1 gm/dL (13.0-17.5); MCH 30.3 pg (25.0-35.0); MCHC 33.1 g/dL (31.0-37.0); MCV 91.4 fL (80.0-100.0); Mean Platelet Volume 7.7; Platelet Count 107 k/uL (150-450); RBC 3.99 m/uL (4.30-5.90); RDW 13.4 % (11.5-15.5); WBC 10.5 k/uL (3.8-10.6)
[2024-03-30 06:47] LABS: African American GFR (CKD) >90 (>60 ml/min/1.73 sqM); Anion Gap 10 mmol/L; Blood Urea Nitrogen 21 mg/dL (9-20); Calcium 7.9 mg/dL (8.4-10.2); Carbon Dioxide 21 mmol/L (22-30); Chloride 105 mmol/L (98-107); Glucose 173 mg/dL (74-99); Magnesium 1.9 mg/dL (1.6-2.3); Non-African American GFR(CKD) 81 (>60 ml/min/1.73 sqM); Potassium 3.7 mmol/L (3.5-5.1); Sodium 136 mmol/L (137-145)
--- NOTE | 2024-03-30 09:19 | P.GSCN ---
History of Present Illness Consult date: 03/30/24 Reason for Consult: Right foot abnormal CT, drainage and cultures Requesting physician: Clarence Tavares History of present illness: This is a pleasant 59-year-old male with a history of diabetes mellitus and infected right foot wound status post transmetatarsal amputation in April 2023. Apparently patient had a chronic diabetic ulcer on the plantar aspect of his right foot that has been managed by his environmental engineering technician in [facility]. States about 2 weeks ago started noticing some increased pain and swelling. He cont inued with wound care however they were concerned that there may be an infection. He had no outpatient antibiotics. He presented with a fever with a max temp of 101.1. He has been afebrile since. He has been started on IV antibiotics states that redness and swelling have improved since starting on antibiotics yesterday. He did have a CT of the foot reporting fluid collection around the first digit, no osteomyelitis. He states that pain is mostly on the top of his foot near great toe, denies any fevers or chills at this time, no bodyaches, no shortness of breath or chest pain. Review of Systems A 14 point review systems was completed all pertinent positives and negatives as stated in the HPI. Past Medical History Past Medical History: Diabetes Mellitus, GERD/Reflux, Hypertension Additional Past Medical History / Comment(s): osteomyelitis and pain left foot, stepped on kristen nail October 2018,hx neuropathy History of Any Multi-Drug Resistant Organisms: MRSA Year Discovered:: march 2022 MDRO Source:: toe Past Surgical History: Tonsillectomy Additional Past Surgical History / Comment(s): endoscopy, middle toe rt foot removed ,lft 2nd toe tip removed Past Anesthesia/Blood Transfusion Reactions: No Reported Reaction Past Psychological History: No Psychological Hx Reported Smoking Status: Former smoker Past Alcohol Use History: None Reported Past Drug Use History: None Reported - Past Family History Mother Family Medical History: Cancer Additional Family Medical History / Comment(s): breast cancer Father Family Medical History: Cancer Additional Family Medical History / Comment(s): lung cancer Sister(s) Family Medical History: Cancer Additional Family Medical History / Comment(s): lung cancer Medications and Allergies Home Medications Medication Instructions Recorded Confirmed Type Dapagliflozin Propanediol [Farxiga] 10 mg PO DAILY #30 tab 12/10/22 03/29/24 Rx Aspirin 81 mg PO DAILY #30 tab 12/11/22 03/29/24 Rx Spironolactone [Aldactone] 25 mg PO DAILY #30 tab 12/11/22 03/29/24 Rx hydrALAZINE HCL [Apresoline] 25 mg PO BID #90 tab 12/11/22 03/29/24 Rx Furosemide [Lasix] 40 mg PO DAILY 02/05/23 03/29/24 History metFORMIN HCL 1,000 mg PO BID 04/28/23 03/29/24 History Atorvastatin [Lipitor] 40 mg PO HS 09/29/23 03/29/24 History carvediloL [Coreg] 25 mg PO BID 09/29/23 03/29/24 History Allergies Allergy/AdvReac Type Severity Reaction Status Date / Time levofloxacin [From Levaquin] Allergy Swelling, Verified 03/29/24 13:21 RASH Penicillins Allergy Unknown Verified 03/29/24 13:21 Childhood Surgical - Exam Vital Signs Temp Pulse Resp BP Pulse Ox 98.4 F 102 H 20 130/74 95 03/29/24 10:00 03/29/24 10:00 03/29/24 10:00 03/29/24 10:00 03/29/24 10:00 General appearance: The patient is alert, oriented, appears in no acute distress. HET: Head is normocephalic and atraumatic. Neck: Supple. Heart: Regular. Lungs: Equal expansion, normal respiratory effort. Abdomen: Soft, nontender, nondistended. Extremities: Right foot with swelling, minimal erythema. Mild tenderness to palpation dorsal aspect. Healed diabetic ulcer to lateral plantar aspect of right foot. Neurological: No focal deficits. Strength and sensation are grossly intact. Results - Labs 03/30/24 06:09 03/30/24 06:09 Abnormal Lab Results - Last 24 Hours (Table) 03/29/24 03/29/24 03/29/24 Range/Units 10:55 10:55 16:49 WBC 16.4 H (3.8-10.6) k/uL RBC (4.30-5.90) m/uL Hgb (13.0-17.5) gm/dL Hct (39.0-53.0) % Plt Count 126 L (150-450) k/uL Neutrophils # 14.0 H (1.3-7.7) k/uL Sodium 134 L (137-145) mmol/L Carbon Dioxide 18 L (22-30) mmol/L BUN (9-20) mg/dL Glucose 235 H (74-99) mg/dL POC Glucose (mg/dL) 267 H (70-110) mg/dL Calcium (8.4-10.2) mg/dL Total Bilirubin 2.4 H (0.2-1.3) mg/dL C-Reactive Protein 32.7 H (<1.0) mg/dL 03/30/24 03/30/24 03/30/24 Range/Units 06:09 06:09 06:12 WBC (3.8-10.6) k/uL RBC 3.99 L (4.30-5.90) m/uL Hgb 12.1 L (13.0-17.5) gm/dL Hct 36.5 L (39.0-53.0) % Plt Count 107 L (150-450) k/uL Neutrophils # (1.3-7.7) k/uL Sodium 136 L (137-145) mmol/L Carbon Dioxide 21 L (22-30) mmol/L BUN 21 H (9-20) mg/dL Glucose 173 H (74-99) mg/dL POC Glucose (mg/dL) 184 H (70-110) mg/dL Calcium 7.9 L (8.4-10.2) mg/dL Total Bilirubin (0.2-1.3) mg/dL C-Reactive Protein (<1.0) mg/dL Diabetes panel 03/29/24 03/30/24 Range/Units 10:55 06:09 Sodium 134 L 136 L (137-145) mmol/L Potassium 3.7 3.7 (3.5-5.1) mmol/L Chloride 101 105 (98-107) mmol/L Carbon Dioxide 18 L 21 L (22-30) mmol/L BUN 18 21 H (9-20) mg/dL Creatinine 1.13 1.03 (0.66-1.25) mg/dL Glucose 235 H 173 H (74-99) mg/dL Calcium 8.9 7.9 L (8.4-10.2) mg/dL AST 19 (17-59) U/L ALT 23 (4-49) U/L Alkaline Phosphatase 65 (38-126) U/L Total Protein 6.9 (6.3-8.2) g/dL Albumin 4.2 (3.5-5.0) g/dL Calcium panel 03/29/24 03/30/24 Range/Units 10:55 06:09 Calcium 8.9 7.9 L (8.4-10.2) mg/dL Albumin 4.2 (3.5-5.0) g/dL Pituitary panel 03/29/24 03/30/24 Range/Units 10:55 06:09 Sodium 134 L 136 L (137-145) mmol/L Potassium 3.7 3.7 (3.5-5.1) mmol/L Chloride 101 105 (98-107) mmol/L Carbon Dioxide 18 L 21 L (22-30) mmol/L BUN 18 21 H (9-20) mg/dL Creatinine 1.13 1.03 (0.66-1.25) mg/dL Glucose 235 H 173 H (74-99) mg/dL Calcium 8.9 7.9 L (8.4-10.2) mg/dL Adrenal panel 03/29/24 03/30/24 Range/Units 10:55 06:09 Sodium 134 L 136 L (137-145) mmol/L Potassium 3.7 3.7 (3.5-5.1) mmol/L Chloride 101 105 (98-107) mmol/L Carbon Dioxide 18 L 21 L (22-30) mmol/L BUN 18 21 H (9-20) mg/dL Creatinine 1.13 1.03 (0.66-1.25) mg/dL Glucose 235 H 173 H (74-99) mg/dL Calcium 8.9 7.9 L (8.4-10.2) mg/dL Total Bilirubin 2.4 H (0.2-1.3) mg/dL AST 19 (17-59) U/L ALT 23 (4-49) U/L Alkaline Phosphatase 65 (38-126) U/L Total Protein 6.9 (6.3-8.2) g/dL Albumin 4.2 (3.5-5.0) g/dL - Imaging Comments: CT scan with contrast of right foot reports postsurgical of the foot with soft tissue edema and suspected fluid collection around the first digit. Further evaluation MRI foot with and without contrast recommended. No definitive evidence for osteomyelitis at this time. Podiatry consultation. CT scan independently reviewed by vascular surgeon who agrees there is a small pocket of fluid, no evidence of air or osteomyelitis. Assessment and Plan Assessment: 1. Right foot infection, likely secondary to diabetic ulcer 2. Diabetes mellitus 3. Previous right transmetatarsal amputation for nonhealing infected diabetic wound 04/2023 Plan: 1. Continue IV antibiotics per recommendations from infectious disease 2. No plan on surgical intervention at this time, patient seems to be responding to the IV antibiotics. Recommend holding off on any I&D or debridement secondary to diabetes mellitus and poor healing. Thank you for this consultation, we will continue to follow. The impression and plan of care has been dictated as directed. I performed a history and examination of this patient, discussed the same with the dictator. I agree with the dictator's note ,documented as a scribe. Any additional findings or plans will be noted.
[2024-03-30] MEDS: FUROSEMIDE 40 MG TAB PO SCH (09:32)
[2024-03-30] MEDS: ASPIRIN 81 MG PO SCH (09:32)
[2024-03-30] MEDS: DAPAGLIFLOZIN PROPANEDIOL 10 MG TABLET PO SCH (09:32)
[2024-03-30] MEDS: ENOXAPARIN 40 MG/0.4 ML SYRINGE SQ SCH (09:32)
[2024-03-30] MEDS: SPIRONOLACTONE 25 MG TAB PO SCH (09:32)
[2024-03-30] MEDS: ACETAMINOPHEN TAB 325 MG TAB PO PRN (09:34)
[2024-03-30 11:49] LABS: Glucose,Whole Blood 249 mg/dL (70-110)
--- NOTE | 2024-03-30 12:58 | P.PN ---
Subjective Progress Note Date: 03/30/24 Principal diagnosis: Reason for follow-up is right diabetic foot infection and bacteremia Patient is a 59-year-old male past medical history difficult for diabetes mellitus reflux hypertension patient did have a history of diabetic foot infection and is status post right transmetatarsal amputation for diabetic foot infection osteomyelitis patient mention has been dealing with a wound on the plantar aspect of the right foot with the help of his seat cover maker and has al most healed patient now presenting to the hospital increasing swelling redness and discomfort to the right foot, patient be diagnosed with diabetic foot infection with concern for small fluid collection/abscess evaluated by vascular surgery recommending no surgical intervention blood culture positive for MSSA. On today's evaluation that is 03/30/2024, Patient did have improvement in his fever pattern he did have a low-grade fever 100.5 F this morning patient is breathing comfortably no chest pain shortness of breath or cough no nausea vomiting no abdominal pain right foot swelling redness slightly decreased. Patient white count normalized to 10.5 creatinine 1.03 blood culture with MSSA Objective - Vital Signs Vital signs: Vital Signs Temp 100.5 F H 03/30/24 09:29 Pulse 86 03/30/24 09:29 Resp 16 03/30/24 09:29 BP 100/64 03/30/24 09:29 Pulse Ox 98 03/30/24 09:29 FiO2 Intake & Output 03/29/24 03/30/24 03/30/24 18:59 06:59 18:59 Intake Total 500 Balance 500 Weight 113.398 kg Intake: Oral 500 Other: Voiding Method Toilet Toilet # Voids 2 1 - Exam GENERAL DESCRIPTION: Middle-age male lying in bed in no distress RESPIRATORY SYSTEM: Unlabored breathing , decreased breath sounds at bases HEART: S1 S2 regular rate and rhythm , ABDOMEN: Soft , no tenderness EXTREMITIES: Right foot swelling redness slightly decreased - Labs CBC & Chem 7: 03/30/24 06:09 03/30/24 06:09 Labs: Abnormal Lab Results - Last 24 Hours (Table) 03/29/24 03/29/24 03/29/24 Range/Units 10:55 10:55 16:49 WBC 16.4 H (3.8-10.6) k/uL RBC (4.30-5.90) m/uL Hgb (13.0-17.5) gm/dL Hct (39.0-53.0) % Plt Count 126 L (150-450) k/uL Neutrophils # 14.0 H (1.3-7.7) k/uL Sodium 134 L (137-145) mmol/L Carbon Dioxide 18 L (22-30) mmol/L BUN (9-20) mg/dL Glucose 235 H (74-99) mg/dL POC Glucose (mg/dL) 267 H (70-110) mg/dL Calcium (8.4-10.2) mg/dL Total Bilirubin 2.4 H (0.2-1.3) mg/dL C-Reactive Protein 32.7 H (<1.0) mg/dL 03/30/24 03/30/24 03/30/24 Range/Units 06:09 06:09 06:12 WBC (3.8-10.6) k/uL RBC 3.99 L (4.30-5.90) m/uL Hgb 12.1 L (13.0-17.5) gm/dL Hct 36.5 L (39.0-53.0) % Plt Count 107 L (150-450) k/uL Neutrophils # (1.3-7.7) k/uL Sodium 136 L (137-145) mmol/L Carbon Dioxide 21 L (22-30) mmol/L BUN 21 H (9-20) mg/dL Glucose 173 H (74-99) mg/dL POC Glucose (mg/dL) 184 H (70-110) mg/dL Calcium 7.9 L (8.4-10.2) mg/dL Total Bilirubin (0.2-1.3) mg/dL C-Reactive Protein (<1.0) mg/dL Microbiology - Last 24 Hours (Table) 03/29/24 10:55 Blood Culture Gram Stain - Preliminary Blood Blood Culture - Preliminary Molecular ID Assessment and Plan (1) Diabetic infection of right foot Current Visit: Yes Status: Acute Code(s): E11.628 - TYPE 2 DIABETES MELLITUS WITH OTHER SKIN COMPLICATIONS; L08.9 - LOCAL INFECTION OF THE SKIN AND SUBCUTANEOUS TISSUE, UNSP SNOMED Code(s): 604220609 (2) Sepsis Current Visit: Yes Status: Acute Code(s): A41.9 - SEPSIS, UNSPECIFIED ORGANISM SNOMED Code(s): 71949361 (3) Allergy to multiple antibiotics Current Visit: No Status: Acute Code(s): Z88.1 - ALLERGY STATUS TO OTHER ANTIBIOTIC AGENTS SNOMED Code(s): 860922474 (4) Bacteremia Current Visit: No Status: Acute Code(s): R78.81 - BACTEREMIA SNOMED Code(s): 3382291 Plan: 1patient presented to hospital with sepsis in this patient who did have fever tachycardia leukocytosis meeting criteria for SIRS/sepsis sources right diabetic infection in this patient presenting with diffuse swelling and redness and concern for possible abscess with previous multiple admission antibiotic exposure will need to cover for more resistant pathogen such as MRSA. 2patient with multiple antibiotic ALLERGIES that would limit the number of antibiotic safe to use. 3 CT of right foot with contrast did show small fluid collection concerning for possible abscess has been seen by vascular surgery recommending no drainage 4blood cultures finalized with MSSA source likely right diabetic foot infection blood culture will be repeat document clearance of his bacteremia 5I will discontinue vancomycin and start the patient on cefazolin 2 g every 8 hours Family at the bedside they have multiple question concern those has been answered in layman term Dictation was produced using [employer] dictation software. please excuse any grammatical, word or spelling errors. Time with Patient: Less than 30
--- NOTE | 2024-03-30 13:25 | P.PN ---
Subjective Progress Note Date: 03/30/24 Patient is a very pleasant 59-year-old male came in with complaints of redness in the right leg along with fever elevated white count and anion gap possibly lactic acidosis. Patient had midfoot amputation and now the stump appears to be infected with redness which has been getting worse localized of temperature and also has a plantar ulcer which is pretty small may be stage II. Patient does have leukocytosis as well patient is diabetic with diabetic neuropathy. 03/30/2024 Seen in follow-up on the medical floor. Blood culture positive with gram- positive cocci in clusters repeat blood culture has been ordered and patient continues on IV vancomycin. ID following closely. Foot CT reveals a fluid collection around the first digit on the right side. Today reveal a white blood cell count of 10.5, sodium 136, BUN 21, creatinine 1.03. Review of Systems Constitutional: Denied any fatigue denied any fever. Cardio vascular: denied any chest pain, palpitations Gastrointestinal: denied any nausea, vomiting, diarrhea Pulmonary: Denied any shortness of breath cough Neurologic denied any new focal deficits All inpatient medications were reviewed and appropriate changes in these medications as dictated in the interval history and assessment and plan. PHYSICAL EXAMINATION: GENERAL: The patient is alert and oriented x3, not in any acute distress. Well developed, well nourished. HEENT: Pupils are round and equally reacting to light. EOMI. No scleral icterus. No conjunctival pallor. Normocephalic, atraumatic. No pharyngeal erythema. No thyromegaly. CARDIOVASCULAR: S1 and S2 present. No murmurs, rubs, or gallops. PULMONARY: Chest is clear to auscultation, no wheezing or crackles. ABDOMEN: Soft, nontender, nondistended, normoactive bowel sounds. No palpable organomegaly. MUSCULOSKELETAL: No joint swelling or deformity. EXTREMITIES: No cyanosis, clubbing, or pedal edema. NEUROLOGICAL: Gross neurological examination did not reveal any focal deficits. SKIN: Patient has amputation of right midfoot and the stump area appears to be infected with localized of temperature. Patient does have a ulcer on the plantar surface may be as stage II which is pretty small Assessment and plan -Diabetic foot infection wound infection and cellulitis -Gram positive bacteremia source of infection the infected amputation site -Patient had amputation of the midfoot for osteomyelitis and he has a history of MRSA in the past. -Type 2 diabetes mellitus -Hypertension -Congestive heart failure chronic systolic function EF of around 40 to 45% in the past without any acute exacerbation -Hyperlipidemia -Gastroesophageal reflux DVT prophylaxis: Lovenox GI prophylaxis: Pepcid Full Code Patient will continue on vancomycin and cefazolin. Blood Culture preliminary positive, which has been repeated today. Infectious disease consulted and following. Stop the IV fluids continue on home dose of lasix and aldactone. Repeat BMP In the AM. The impression and plan of care has been dictated by Mervat Harris, Nurse Practitioner as directed. Dr. Nessa MD I have performed a history and physical examination and medical decision making of this patient, discussed the same with the dictator, and agree with the dictators assessment and plan as written, documented as a scribe. Based on total visit time, I have performed more than 50% of this visit. Objective - Vital Signs Vital signs: Vital Signs Temp 98.5 F 03/29/24 20:00 Pulse 81 03/30/24 01:22 Resp 16 03/30/24 01:22 BP 95/57 03/30/24 01:22 Pulse Ox 92 L 03/30/24 01:22 FiO2 Intake & Output 03/29/24 03/30/24 03/30/24 18:59 06:59 18:59 Intake Total 500 Balance 500 Weight 113.398 kg Intake: Oral 500 Other: Voiding Method Toilet # Voids 2 1 - Labs CBC & Chem 7: 03/30/24 06:09 03/30/24 06:09 Labs: Abnormal Lab Results - Last 24 Hours (Table) 03/29/24 03/29/24 03/29/24 Range/Units 10:55 10:55 16:49 WBC 16.4 H (3.8-10.6) k/uL RBC (4.30-5.90) m/uL Hgb (13.0-17.5) gm/dL Hct (39.0-53.0) % Plt Count 126 L (150-450) k/uL Neutrophils # 14.0 H (1.3-7.7) k/uL Sodium 134 L (137-145) mmol/L Carbon Dioxide 18 L (22-30) mmol/L BUN (9-20) mg/dL Glucose 235 H (74-99) mg/dL POC Glucose (mg/dL) 267 H (70-110) mg/dL Calcium (8.4-10.2) mg/dL Total Bilirubin 2.4 H (0.2-1.3) mg/dL C-Reactive Protein 32.7 H (<1.0) mg/dL 03/30/24 03/30/24 03/30/24 Range/Units 06:09 06:09 06:12 WBC (3.8-10.6) k/uL RBC 3.99 L (4.30-5.90) m/uL Hgb 12.1 L (13.0-17.5) gm/dL Hct 36.5 L (39.0-53.0) % Plt Count 107 L (150-450) k/uL Neutrophils # (1.3-7.7) k/uL Sodium 136 L (137-145) mmol/L Carbon Dioxide 21 L (22-30) mmol/L BUN 21 H (9-20) mg/dL Glucose 173 H (74-99) mg/dL POC Glucose (mg/dL) 184 H (70-110) mg/dL Calcium 7.9 L (8.4-10.2) mg/dL Total Bilirubin (0.2-1.3) mg/dL C-Reactive Protein (<1.0) mg/dL Microbiology - Last 24 Hours (Table) 03/29/24 10:55 Blood Culture Gram Stain - Preliminary Blood Blood Culture - Preliminary Molecular ID Assessment and Plan Time with Patient: Less than 30
[2024-03-30 16:44] LABS: Glucose,Whole Blood 208 mg/dL (70-110)
[2024-03-30 19:32] LABS: Glucose,Whole Blood 277 mg/dL (70-110)
[2024-03-30] MEDS: FAMOTIDINE 20 MG TAB PO SCH (20:12)
[2024-03-30] MEDS: INSULIN DETEMIR (LEVEMIR) 100 UNIT/ML SYR SQ SCH (20:12)
[2024-03-31 04:37] LABS: African American GFR (CKD) >90 (>60 ml/min/1.73 sqM); Anion Gap 4 mmol/L; Blood Urea Nitrogen 17 mg/dL (9-20); Calcium 7.9 mg/dL (8.4-10.2); Carbon Dioxide 23 mmol/L (22-30); Chloride 108 mmol/L (98-107); Glucose 145 mg/dL (74-99); Non-African American GFR(CKD) >90 (>60 ml/min/1.73 sqM); Potassium 3.3 mmol/L (3.5-5.1); Sodium 135 mmol/L (137-145)
[2024-03-31 05:59] LABS: Glucose,Whole Blood 157 mg/dL (70-110)
[2024-03-31] MEDS: POTASSIUM CHLORIDE ER 20 MEQ TAB.ER PO STA (06:31)
[2024-03-31] MEDS: HYDROcodone/APAP 5-325MG 1 EACH TAB PO PRN (06:32)
[2024-03-31 11:23] LABS: Glucose,Whole Blood 382 mg/dL (70-110)
--- NOTE | 2024-03-31 11:54 | P.PN ---
Subjective Progress Note Date: 03/31/24 Principal diagnosis: Right foot infection Patient is seen and examined today as a follow-up. States pain in his foot has improved. He has been afebrile. Preliminary blood cultures came back positive presumptive Staph aureus, currently on IV Kefzol. He has been afebrile. Objective - Vital Signs Vital signs: Vital Signs Temp 98.6 F 03/31/24 07:34 Pulse 71 03/31/24 07:34 Resp 17 03/31/24 07:34 BP 104/67 03/31/24 07:34 Pulse Ox 96 03/31/24 07:34 FiO2 Intake & Output 03/30/24 03/31/24 03/31/24 18:59 06:59 18:59 Output Total 0 Balance 0 Output: Gastric Drainage 0 Other: Voiding Method Toilet Toilet # Voids 2 - Exam General appearance: The patient is alert, oriented, appears in no acute distress. HET: Head is normocephalic and atraumatic. Pupils are equal and reactive. Neck: Supple. Heart: Regular. Lungs: Equal expansion, normal respiratory effort. Abdomen: Soft, nontender, nondistended. Extremities: Normal skin color and turgor. Neurological: No focal deficits. Strength and sensation are grossly intact. - Labs CBC & Chem 7: 03/30/24 06:09 03/31/24 03:43 Labs: Abnormal Lab Results - Last 24 Hours (Table) 03/30/24 03/30/24 03/30/24 Range/Units 11:48 16:43 19:31 Sodium (137-145) mmol/L Potassium (3.5-5.1) mmol/L Chloride (98-107) mmol/L Glucose (74-99) mg/dL POC Glucose (mg/dL) 249 H 208 H 277 H (70-110) mg/dL Calcium (8.4-10.2) mg/dL 03/31/24 03/31/24 03/31/24 Range/Units 03:43 05:58 11:22 Sodium 135 L (137-145) mmol/L Potassium 3.3 L (3.5-5.1) mmol/L Chloride 108 H (98-107) mmol/L Glucose 145 H (74-99) mg/dL POC Glucose (mg/dL) 157 H 382 H (70-110) mg/dL Calcium 7.9 L (8.4-10.2) mg/dL Microbiology - Last 24 Hours (Table) 03/29/24 10:55 Blood Culture Gram Stain - Preliminary Blood Blood Culture - Preliminary Presumptive Staph aureus Molecular ID Assessment and Plan Assessment: 1. Right foot infection, likely secondary to diabetic ulcer 2. Bacteremia, preliminary blood culture presumptive Staph aureus 3. Diabetes mellitus 4. Previous right transmetatarsal amputation for nonhealing infected diabetic wound 04/2023 Plan: 1. Continue IV antibiotics per recommendations from infectious disease 2. No plan on surgical intervention at this time, patient seems to be responding to the IV antibiotics. Recommend holding off on any I&D or debridement secondary to diabetes mellitus and poor healing. Thank you for this consultation, we will continue to follow with further recomm endations based on clinical course. The impression and plan of care has been dictated as directed. Dr. Heard I performed a history and examination of this patient, discussed the same with the dictator. I agree with the dictator's note ,documented as a scribe. Any additional findings or plans will be noted.
[2024-03-31 17:26] LABS: Glucose,Whole Blood 229 mg/dL (70-110)
[2024-03-31 19:51] LABS: Glucose,Whole Blood 324 mg/dL (70-110)
--- NOTE | 2024-03-31 21:45 | P.PN ---
Subjective Progress Note Date: 03/31/24 Patient is a very pleasant 59-year-old male came in with complaints of redness in the right leg along with fever elevated white count and anion gap possibly lactic acidosis. Patient had midfoot amputation and now the stump appears to be infected with redness which has been getting worse localized of temperature and also has a plantar ulcer which is pretty small may be stage II. Patient does have leukocytosis as well patient is diabetic with diabetic neuropathy. 03/30/2024 Seen in follow-up on the medical floor. Blood culture positive with gram- positive cocci in clusters repeat blood culture has been ordered and patient continues on IV vancomycin. ID following closely. Foot CT reveals a fluid collection around the first digit on the right side. Today reveal a white blood cell count of 10.5, sodium 136, BUN 21, creatinine 1.03. 03/31/2024 Patient is evaluated today in follow up on the medical floor. His midfoot amputation has no drainage and the redness is improving. His foot remains ed ematous. Has positive blood culture presumptive staph aureus. Labs today showing sodium 135, potassium 3.3, BUN 17, creatinine 0.94. Review of Systems Constitutional: Denied any fatigue denied any fever. Cardio vascular: denied any chest pain, palpitations Gastrointestinal: denied any nausea, vomiting, diarrhea Pulmonary: Denied any shortness of breath cough Neurologic denied any new focal deficits All inpatient medications were reviewed and appropriate changes in these medications as dictated in the interval history and assessment and plan. PHYSICAL EXAMINATION: GENERAL: The patient is alert and oriented x3, not in any acute distress. Well developed, well nourished. HEENT: Pupils are round and equally reacting to light. EOMI. No scleral icterus. No conjunctival pallor. Normocephalic, atraumatic. No pharyngeal erythema. No thyromegaly. CARDIOVASCULAR: S1 and S2 present. No murmurs, rubs, or gallops. PULMONARY: Chest is clear to auscultation, no wheezing or crackles. ABDOMEN: Soft, nontender, nondistended, normoactive bowel sounds. No palpable organomegaly. MUSCULOSKELETAL: No joint swelling or deformity. EXTREMITIES: No cyanosis, clubbing, or pedal edema. NEUROLOGICAL: Gross neurological examination did not reveal any focal deficits. SKIN: Patient has amputation of right midfoot and the stump area appears to be infected with localized of temperature. Patient does have a ulcer on the plantar surface may be as stage II which is pretty small Assessment and plan -Diabetic foot infection wound infection and cellulitis -Gram positive bacteremia source of infection the infected amputation site preliminary staph aureus on cultures. -Patient had amputation of the midfoot for osteomyelitis and he has a history of MRSA in the past. -Type 2 diabetes mellitus -Hypertension -Congestive heart failure chronic systolic function EF of around 40 to 45% in the past without any acute exacerbation -Hyperlipidemia -Gastroesophageal reflux DVT prophylaxis: Lovenox GI prophylaxis: Pepcid Full Code Patient will continue on IV cefazolin. Blood Culture preliminary positive, which has been repeated today. Infectious disease consulted and following. Continue supportive care. Tylenol and norco on for pain management Monitor electrolytes and renal function. The impression and plan of care has been dictated by Mervat Harris, Nurse Practitioner as directed. Dr. Nessa MD I have performed a history and physical examination and medical decision making of this patient, discussed the same with the dictator, and agree with the dictators assessment and plan as written, documented as a scribe. Based on total visit time, I have performed more than 50% of this visit. Objective - Vital Signs Vital signs: Vital Signs Temp 98.2 F 03/31/24 18:58 Pulse 66 03/31/24 18:58 Resp 18 03/31/24 18:58 BP 117/76 03/31/24 18:58 Pulse Ox 96 03/31/24 18:58 FiO2 Intake & Output 03/31/24 03/31/24 04/01/24 06:59 18:59 06:59 Output Total 0 Balance 0 Output: Gastric Drainage 0 Other: Voiding Method Toilet Toilet Toilet # Voids 4 - Labs CBC & Chem 7: 03/30/24 06:09 03/31/24 03:43 Labs: Abnormal Lab Results - Last 24 Hours (Table) 03/31/24 03/31/24 03/31/24 Range/Units 03:43 05:58 11:22 Sodium 135 L (137-145) mmol/L Potassium 3.3 L (3.5-5.1) mmol/L Chloride 108 H (98-107) mmol/L Glucose 145 H (74-99) mg/dL POC Glucose (mg/dL) 157 H 382 H (70-110) mg/dL Calcium 7.9 L (8.4-10.2) mg/dL 03/31/24 03/31/24 Range/Units 17:25 19:49 Sodium (137-145) mmol/L Potassium (3.5-5.1) mmol/L Chloride (98-107) mmol/L Glucose (74-99) mg/dL POC Glucose (mg/dL) 229 H 324 H (70-110) mg/dL Calcium (8.4-10.2) mg/dL Microbiology - Last 24 Hours (Table) 03/30/24 09:16 Blood Culture - Preliminary Blood 03/29/24 10:55 Blood Culture Gram Stain - Preliminary Blood Blood Culture - Preliminary Presumptive Staph aureus Molecular ID Assessment and Plan Time with Patient: Less than 30
[2024-03-31] MEDS: KETOROLAC 15 MG/ML 1 ML VIAL IVP PRN (22:31)
--- NOTE | 2024-03-31 23:39 | P.PN ---
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 On today's evaluation that is 03/31/2024,the patient denies any fever or any chills, patient is breathing comfortably on room air, the patient denies chest pain shortness of breath and no significant cough, patient denies abdominal pain, no nausea vomiting or diarrhea. Patient mention he did have more pain to the right foot last night however currently controlled with the pain medication. No CBC was done today creatinine 0.94 blood culture repeated currently pending Objective - Vital Signs Vital signs: Vital Signs Temp 98.6 F 03/31/24 07:34 Pulse 71 03/31/24 07:34 Resp 17 03/31/24 07:34 BP 104/67 03/31/24 07:34 Pulse Ox 96 03/31/24 07:34 FiO2 Intake & Output 03/30/24 03/31/24 03/31/24 18:59 06:59 18:59 Output Total 0 Balance 0 Output: Gastric Drainage 0 Other: Voiding Method Toilet Toilet # Voids 2 - Exam GENERAL DESCRIPTION: Middle-age male lying in bed in no distress RESPIRATORY SYSTEM: Unlabored breathing , decreased breath sounds at bases HEART: S1 S2 regular rate and rhythm , ABDOMEN: Soft , no tenderness EXTREMITIES: Right foot swelling redness slightly decreased - Labs CBC & Chem 7: 03/30/24 06:09 03/31/24 03:43 Labs: Abnormal Lab Results - Last 24 Hours (Table) 03/30/24 03/30/24 03/31/24 Range/Units 16:43 19:31 03:43 Sodium 135 L (137-145) mmol/L Potassium 3.3 L (3.5-5.1) mmol/L Chloride 108 H (98-107) mmol/L Glucose 145 H (74-99) mg/dL POC Glucose (mg/dL) 208 H 277 H (70-110) mg/dL Calcium 7.9 L (8.4-10.2) mg/dL 03/31/24 03/31/24 Range/Units 05:58 11:22 Sodium (137-145) mmol/L Potassium (3.5-5.1) mmol/L Chloride (98-107) mmol/L Glucose (74-99) mg/dL POC Glucose (mg/dL) 157 H 382 H (70-110) mg/dL Calcium (8.4-10.2) mg/dL Microbiology - Last 24 Hours (Table) 03/29/24 10:55 Blood Culture Gram Stain - Preliminary Blood Blood Culture - Preliminary Presumptive Staph aureus Molecular ID Assessment and Plan (1) Diabetic infection of right foot Current Visit: Yes Status: Acute Code(s): E11.628 - TYPE 2 DIABETES MELLITUS WITH OTHER SKIN COMPLICATIONS; L08.9 - LOCAL INFECTION OF THE SKIN AND SUBCUTANEOUS TISSUE, UNSP SNOMED Code(s): 453563403 (2) Sepsis Current Visit: Yes Status: Acute Code(s): A41.9 - SEPSIS, UNSPECIFIED ORG ANISM SNOMED Code(s): 17337851 (3) Allergy to multiple antibiotics Current Visit: No Status: Acute Code(s): Z88.1 - ALLERGY STATUS TO OTHER ANTIBIOTIC AGENTS SNOMED Code(s): 023054783 (4) Bacteremia Current Visit: No Status: Acute Code(s): R78.81 - BACTEREMIA SNOMED Code(s): 6093335 Plan: 1patient presented to hospital with sepsis in this patient who did have fever tachycardia leukocytosis meeting criteria for SIRS/sepsis sources right diabetic infection in this patient presenting with diffuse swelling and redness and concern for possible abscess with previous multiple admission antibiotic exposure will need to cover for more resistant pathogen such as MRSA. 2patient with multiple antibiotic ALLERGIES that would limit the number of antibiotic safe to use. 3 CT of right foot with contrast did show small fluid collection concerning for possible abscess has been seen by vascular surgery recommending no drainage 4blood cultures finalized with MSSA source likely right diabetic foot infection blood culture will be repeat document clearance of his bacteremia 5patient to continue cefazolin 2 g every 8 hours he will get a PICC line when he cleared his bacteremia for outpatient IV antibiotic therapy at the bedside multiple question answered Dictation was produced using [employer] dictation software. please excuse any grammatical, word or spelling errors.
[2024-04-01] MEDS: HYDROcodone/APAP 7.5-325MG 1 EACH TAB PO PRN (03:44)
[2024-04-01 06:30] LABS: Glucose,Whole Blood 177 mg/dL (70-110)
[2024-04-01] MEDS: INSULIN DETEMIR (LEVEMIR) 100 UNIT/ML SYR SQ SCH (06:54)
[2024-04-01 07:14] LABS: Glucose,Whole Blood 178 mg/dL (70-110)
[2024-04-01 11:49] LABS: African American GFR (CKD) >90 (>60 ml/min/1.73 sqM); Anion Gap 7 mmol/L; Blood Urea Nitrogen 19 mg/dL (9-20); Calcium 8.1 mg/dL (8.4-10.2); Carbon Dioxide 25 mmol/L (22-30); Chloride 105 mmol/L (98-107); Glucose 264 mg/dL (74-99); Non-African American GFR(CKD) 84 (>60 ml/min/1.73 sqM); Potassium 3.5 mmol/L (3.5-5.1); Sodium 137 mmol/L (137-145)
[2024-04-01 12:16] LABS: Glucose,Whole Blood 233 mg/dL (70-110)
--- NOTE | 2024-04-01 14:53 | P.PN ---
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 On today's evaluation that is 04/01/2024,the patient remains to be afebrile, patient is on room air not requiring supplemental oxygen and denies any shortness of breath no chest pain or cough.Patient denies having any nausea or vomiting, no abdominal pain and no diarrhea still have issues with pain to the right foot last night though controlled with pain medication. Patient creatinine 0.99 blood culture repeat has been negative so far Objective - Vital Signs Vital signs: Vital Signs Temp 97.3 F L 04/01/24 07:38 Pulse 66 04/01/24 07:38 Resp 17 04/01/24 07:38 BP 102/63 04/01/24 07:38 Pulse Ox 94 L 04/01/24 07:38 FiO2 Intake & Output 03/31/24 04/01/24 04/01/24 18:59 06:59 18:59 Intake Total 2165 Balance 2165 Intake: Oral 2165 Other: Voiding Method Toilet Toilet # Voids 4 4 - Exam GENERAL DESCRIPTION: Middle-age male lying in bed in no distress RESPIRATORY SYSTEM: Unlabored breathing , decreased breath sounds at bases HEART: S1 S2 regular rate and rhythm , ABDOMEN: Soft , no tenderness EXTREMITIES: Right foot swelling redness slightly decreased - Labs CBC & Chem 7: 03/30/24 06:09 04/01/24 10:53 Labs: Abnormal Lab Results - Last 24 Hours (Table) 03/31/24 03/31/24 04/01/24 Range/Units 17:25 19:49 06:28 POC Glucose (mg/dL) 229 H 324 H 177 H (70-110) mg/dL 04/01/24 Range/Units 07:13 POC Glucose (mg/dL) 178 H (70-110) mg/dL Microbiology - Last 24 Hours (Table) 03/30/24 09:16 Blood Culture - Preliminary Blood 03/29/24 10:55 Blood Culture Gram Stain - Preliminary Blood Blood Culture - Preliminary Presumptive Staph aureus Molecular ID Assessment and Plan (1) Diabetic infection of right foot Current Visit: Yes Status: Acute Code(s): E11.628 - TYPE 2 DIABETES MELLITUS WITH OTHER SKIN COMPLICATIONS; L08.9 - LOCAL INFECTION OF THE SKIN AND SUBCUTANEOUS TISSUE, UNSP SNOMED Code(s): 700283614 (2) Sepsis Current Visit: Yes Status: Acute Code(s): A41.9 - SEPSIS, UNSPECIFIED ORGANISM SNOMED Code(s): 96063821 (3) Allergy to multiple antibiotics Current Visit: No Status: Acute Code(s): Z88.1 - ALLERGY STATUS TO OTHER ANTIBIOTIC AGENTS SNOMED Code(s): 779092473 (4) Bacteremia Current Visit: No Status: Acute Code(s): R78.81 - BACTEREMIA SNOMED Code(s ): 4261198 Plan: 1patient presented to hospital with sepsis in this patient who did have fever tachycardia leukocytosis meeting criteria for SIRS/sepsis sources right diabetic infection in this patient presenting with diffuse swelling and redness and kenneth rn for possible abscess with previous multiple admission antibiotic exposure will need to cover for more resistant pathogen such as MRSA. 2patient with multiple antibiotic ALLERGIES that would limit the number of antibiotic safe to use. 3 CT of right foot with contrast did show small fluid collection concerning for possible abscess has been seen by vascular surgery recommending no drainage 4blood cultures finalized with MSSA source likely right diabetic foot infection blood culture will be repeat document clearance of his bacteremia 5patient repeat blood culture has been negative so far if he remains to be negative by tomorrow we will get a PICC line for outpatient IV antibiotic therapy continue cefazolin discussed with patient and at the bedside Dictation was produced using [employer] dictation software. please excuse any grammatical, word or spelling errors.
--- NOTE | 2024-04-01 15:01 | P.PN ---
Subjective Progress Note Date: 04/01/24 Patient is a very pleasant 59-year-old male came in with complaints of redness in the right leg along with fever elevated white count and anion gap possibly lactic acidosis. Patient had midfoot amputation and now the stump appears to be infected with redness which has been getting worse localized of temperature and also has a plantar ulcer which is pretty small may be stage II. Patient does have leukocytosis as well patient is diabetic with diabetic neuropathy. 03/30/2024 Seen in follow-up on the medical floor. Blood culture positive with gram- positive cocci in clusters repeat blood culture has been ordered and patient continues on IV vancomycin. ID following closely. Foot CT reveals a fluid collection around the first digit on the right side. Today reveal a white blood cell count of 10.5, sodium 136, BUN 21, creatinine 1.03. 03/31/2024 Patient is evaluated today in follow up on the medical floor. His midfoot amputation has no drainage and the redness is improving. His foot remains ed ematous. Has positive blood culture presumptive staph aureus. Labs today showing sodium 135, potassium 3.3, BUN 17, creatinine 0.94. 04/01/2024 Patient is evaluated in follow-up in the medical floor. Improved redness of the right midfoot amputation. Having increased pain to the foot and [place] was increased last night. Today he does report that he is able to get up and ambulate. He remains on IV cefazolin for a positive blood culture of Staph aureus with repeat blood cultures currently pending. Review of Systems Constitutional: Denied any fatigue denied any fever. Cardio vascular: denied any chest pain, palpitations Gastrointestinal: denied any nausea, vomiting, diarrhea Pulmonary: Denied any shortness of breath cough Neurologic denied any new focal deficits All inpatient medications were reviewed and appropriate changes in these medications as dictated in the interval history and assessment and plan. PHYSICAL EXAMINATION: GENERAL: The patient is alert and oriented x3, not in any acute distress. Well developed, well nourished. HEENT: Pupils are round and equally reacting to light. EOMI. No scleral icterus. No conjunctival pallor. Normocephalic, atraumatic. No pharyngeal erythema. No thyromegaly. CARDIOVASCULAR: S1 and S2 present. No murmurs, rubs, or gallops. PULMONARY: Chest is clear to auscultation, no wheezing or crackles. ABDOMEN: Soft, nontender, nondistended, normoactive bowel sounds. No palpable organomegaly. MUSCULOSKELETAL: No joint swelling or deformity. EXTREMITIES: No cyanosis, clubbing, or pedal edema. NEUROLOGICAL: Gross neurological examination did not reveal any focal deficits. SKIN: Patient has amputation of right midfoot and the stump area appears to be infected with localized of temperature. Patient does have a ulcer on the plantar surface may be as stage II which is pretty small Assessment and plan -Diabetic foot infection wound infection and cellulitis -Gram positive bacteremia source of infection the infected amputation site preliminary staph aureus on cultures. Repeat Cultures are ordered and pending. -Patient had amputation of the midfoot for osteomyelitis and he has a history of MRSA in the past. -Type 2 diabetes mellitus -Hypertension -Congestive heart failure chronic systolic function EF of around 40 to 45% in t he past without any acute exacerbation -Hyperlipidemia -Gastroesophageal reflux DVT prophylaxis: Lovenox GI prophylaxis: Pepcid Full Code Patient will continue on IV cefazolin. Blood Culture preliminary positive, which has been repeated today. Infectious disease consulted and following. Continue supportive care. Tylenol and norco on for pain management Monitor electrolytes and renal function. The impression and plan of care has been dictated by Mervat Harris, Nurse Practitioner as directed. Dr. Nessa MD I have performed a history and physical examination and medical decision making of this patient, discussed the same with the dictator, and agree with the dictators assessment and plan as written, documented as a scribe. Based on total visit time, I have performed more than 50% of this visit. Objective - Vital Signs Vital signs: Vital Signs Temp 97.3 F L 04/01/24 13:01 Pulse 69 04/01/24 13:01 Resp 17 04/01/24 13:01 BP 129/79 04/01/24 13:01 Pulse Ox 97 04/01/24 13:01 FiO2 Intake & Output 03/31/24 04/01/24 04/01/24 18:59 06:59 18:59 Intake Total 2165 Balance 2165 Intake: Oral 2165 Other: Voiding Method Toilet Toilet Toilet # Voids 4 4 - Labs CBC & Chem 7: 03/30/24 06:09 04/01/24 10:53 Labs: Abnormal Lab Results - Last 24 Hours (Table) 03/31/24 03/31/24 04/01/24 Range/Units 17:25 19:49 06:28 Glucose (74-99) mg/dL POC Glucose (mg/dL) 229 H 324 H 177 H (70-110) mg/dL Calcium (8.4-10.2) mg/dL 04/01/24 04/01/24 04/01/24 Range/Units 07:13 10:53 12:14 Glucose 264 H (74-99) mg/dL POC Glucose (mg/dL) 178 H 233 H (70-110) mg/dL Calcium 8.1 L (8.4-10.2) mg/dL Microbiology - Last 24 Hours (Table) 03/31/24 03:43 Blood Culture - Preliminary Blood 03/29/24 10:55 Blood Culture Gram Stain - Final Blood Blood Culture - Final Staphylococcus aureus Molecular ID 03/30/24 09:16 Blood Culture - Preliminary Blood Assessment and Plan Time with Patient: Less than 30
[2024-04-01 16:54] LABS: Glucose,Whole Blood 268 mg/dL (70-110)
[2024-04-01] MEDS: INSULIN ASPART (NovoLOG) 100 UNIT/ML VIAL SQ SCH (17:47)
[2024-04-01 20:49] LABS: Glucose,Whole Blood 300 mg/dL (70-110)
[2024-04-02 06:51] LABS: Glucose,Whole Blood 164 mg/dL (70-110)
[2024-04-02 08:20] LABS: Basophils # (A) 0.03 X 10*3/uL (0.00-0.10); Basophils % (A) 0.5 %; Eosinophils % (A) 3.2 %; HCT 35.7 % (39.6-50.0); HGB 12.2 g/dL (13.0-17.0); Lymphocytes # (A) 1.84 X 10*3/uL (0.90-5.00); Lymphocytes % (A) 29.4 %; MCHC 34.2 g/dL (32.0-37.0); MCV 87.7 FL (80.0-97.0); Mean Platelet Volume 9.6 FL (9.5-12.2); Monocytes # (A) 0.57 X 10*3/uL (0.20-1.00); Monocytes % (A) 9.1 %; NRBC Per 100 WBC 0 X 10*3/uL (0.00-0.01); Neutrophils # (A) 3.58 X 10*3/uL (1.80-7.70); Neutrophils % (A) 57.2 %; Platelet Count 171 X 10*3/uL (140-440); RBC 4.07 X 10*6/uL (4.40-5.60); RDW 13.1 % (11.5-14.5); WBC 6.26 X 10*3/uL (4.50-10.00)
[2024-04-02 08:56] LABS: Blood Urea Nitrogen 14.9 mg/dL (9.0-27.0); Calcium 8.5 mg/dL (8.7-10.3); Carbon Dioxide 25.9 mmol/L (21.6-31.8); Chloride 105 mmol/L (96-109); Glucose 176 mg/dL (70-110); Potassium 3.8 mmol/L (3.5-5.5); Sodium 142 mmol/L (135-145)
[2024-04-02 11:40] LABS: Glucose,Whole Blood 321 mg/dL (70-110)
--- NOTE | 2024-04-02 11:55 | P.PN ---
Subjective Progress Note Date: 04/02/24 Principal diagnosis: Right foot infection Patient is seen and examined today as a follow-up for right foot cellulitis/infection. Upon entering the room patient has an ice pack on his right leg near his ankle. States that he has had increased pain throughout the night and this morning for the right lower part of his leg above his ankle. States he does not feel his right foot. Repeat blood culture currently with no growth at 48 hours. He has been afebrile. No leukocytosis. Objective - Vital Signs Vital signs: Vital Signs Temp 98.1 F 04/02/24 08:00 Pulse 80 04/02/24 08:00 Resp 16 04/02/24 08:00 BP 109/68 04/02/24 08:00 Pulse Ox 97 04/02/24 08:00 FiO2 Intake & Output 04/01/24 04/02/24 04/02/24 18:59 06:59 18:59 Other: Voiding Method Toilet Toilet # Voids 4 - Exam General appearance: The patient is alert, oriented, appears in no acute distress. HET: Head is normocephalic and atraumatic. Neck: Supple. Heart: Regular. Lungs: Equal expansion, normal respiratory effort. Abdomen: Soft, nontender, nondistended. Extremities: Right TMA well-healed. Patient with decreased sensory in right foot. Tender to palpation above ankle with increased swelling over dorsal aspect of foot however erythema is improved. Neurological: No focal deficits. Strength intact. - Labs CBC & Chem 7: 04/02/24 05:11 04/02/24 05:11 Labs: Abnormal Lab Results - Last 24 Hours (Table) 04/01/24 04/01/24 04/01/24 Range/Units 10:53 12:14 16:53 RBC (4.40-5.60) X 10*6/uL Hgb (13.0-17.0) g/dL Hct (39.6-50.0) % Glucose 264 H (74-99) mg/dL POC Glucose (mg/dL) 233 H 268 H (70-110) mg/dL Calcium 8.1 L (8.4-10.2) mg/dL 04/01/24 04/02/24 04/02/24 Range/Units 20:47 05:11 06:50 RBC 4.07 L (4.40-5.60) X 10*6/uL Hgb 12.2 L (13.0-17.0) g/dL Hct 35.7 L (39.6-50.0) % Glucose (74-99) mg/dL POC Glucose (mg/dL) 300 H 164 H (70-110) mg/dL Calcium (8.4-10.2) mg/dL Microbiology - Last 24 Hours (Table) 03/31/24 12:48 Blood Culture - Preliminary Blood 03/30/24 09:16 Blood Culture - Preliminary Blood 03/31/24 03:43 Blood Culture - Preliminary Blood 03/29/24 10:55 Blood Culture Gram Stain - Final Blood Blood Culture - Final Staphylococcus aureus Molecular ID Assessment and Plan Assessment: 1. Right foot infection, likely secondary to diabetic ulcer 2. Bacteremia, blood cultures positive Staph aureus 3. Diabetes mellitus 4. Previous right transmetatarsal amputation for nonhealing infected diabetic wound 04/2023 Plan: 1. Continue IV antibiotics per recommendations from infectious disease 2. Hold Lovenox in the morning 3. N.p.o. after midnight 4. Patient scheduled for right foot incision and drainage tomorrow with deep tissue cultures Thank you for this consultation, we will continue to follow. The impression and plan of care has been dictated as directed. Dr. Heard I performed a history and examination of this patient, discussed the same with the dictator. I agree with the dictator's note ,documented as a scribe. Any additional findings or plans will be noted.
--- NOTE | 2024-04-02 12:55 | P.PN ---
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 On today's evaluation that is 04/02/2024, the patient continues to be afebrile, the patient is on room air and breathing comfortably, the Pt denies having any chest pain or cough, the patient denies having any abdominal pain no vomiting or any diarrhea still complaining of pain to the right lower extremity but controlled with the pain medication. Patient white count is 6.26, creatinine is 1.0 blood culture repeat has been negative so far Objective - Vital Signs Vital signs: Vital Signs Temp 98.1 F 04/02/24 08:00 Pulse 80 04/02/24 08:00 Resp 16 04/02/24 08:00 BP 109/68 04/02/24 08:00 Pulse Ox 97 04/02/24 08:00 FiO2 Intake & Output 04/01/24 04/02/24 04/02/24 18:59 06:59 18:59 Other: Voiding Method Toilet Toilet Toilet # Voids 4 - Exam GENERAL DESCRIPTION: Middle-age male lying in bed in no distress RESPIRATORY SYSTEM: Unlabored breathing , decreased breath sounds at bases HEART: S1 S2 regular rate and rhythm , ABDOMEN: Soft , no tenderness - Labs CBC & Chem 7: 04/02/24 05:11 04/02/24 05:11 Labs: Abnormal Lab Results - Last 24 Hours (Table) 04/01/24 04/01/24 04/01/24 Range/Units 10:53 12:14 16:53 RBC (4.40-5.60) X 10*6/uL Hgb (13.0-17.0) g/dL Hct (39.6-50.0) % Glucose 264 H (74-99) mg/dL POC Glucose (mg/dL) 233 H 268 H (70-110) mg/dL Calcium 8.1 L (8.4-10.2) mg/dL 04/01/24 04/02/24 04/02/24 Range/Units 20:47 05:11 05:11 RBC 4.07 L (4.40-5.60) X 10*6/uL Hgb 12.2 L (13.0-17.0) g/dL Hct 35.7 L (39.6-50.0) % Glucose 176 H (74-99) mg/dL POC Glucose (mg/dL) 300 H (70-110) mg/dL Calcium 8.5 L (8.4-10.2) mg/dL 04/02/24 Range/Units 06:50 RBC (4.40-5.60) X 10*6/uL Hgb (13.0-17.0) g/dL Hct (39.6-50.0) % Glucose (74-99) mg/dL POC Glucose (mg/dL) 164 H (70-110) mg/dL Calcium (8.4-10.2) mg/dL Microbiology - Last 24 Hours (Table) 03/31/24 12:48 Blood Culture - Preliminary Blood 03/30/24 09:16 Blood Culture - Preliminary Blood 03/31/24 03:43 Blood Culture - Preliminary Blood 03/29/24 10:55 Blood Culture Gram Stain - Final Blood Blood Culture - Final Staphylococcus aureus Molecular ID Assessment and Plan (1) Diabetic infection of right foot Current Visit: Yes Status: Acute Code(s): E11.628 - TYPE 2 DIABETES MELLITUS WITH OTHER SKIN COMPLICATIONS; L08.9 - LOCAL INFECTION OF THE SKIN AND SUBCUTANEOUS TISSUE, UNSP SNOMED Code(s): 034962425 (2) Sepsis Current Visit: Yes Status: Acute Code(s): A41.9 - SEPSIS, UNSPECIFIED ORGANISM SNOMED Code(s): 86459244 (3) Allergy to multiple antibiotics Current Visit: No Status: Acute Code(s): Z88.1 - ALLERGY STATUS TO OTHER ANTIBIOTIC AGENTS SNOMED Code(s): 006554044 (4) Bacteremia Current Visit: No Status: Acute Code(s): R78.81 - BACTEREMIA SNOMED Code(s): 0260812 Plan: 1patient presented to hospital with sepsis in this patient who did have fever tachycardia leukocytosis meeting criteria for SIRS/sepsis sources right diabetic infection in this patient presenting with diffuse swelling and redness and concern for possible abscess with previous multiple admission antibiotic exposure will need to cover for more resistant pathogen such as MRSA. 2patient with multiple antibiotic ALLERGIES that would limit the number of antibiotic safe to use. 3 CT of right foot with contrast did show small fluid collection concerning for possible abscess appreciated vascular surgery commended no drainage now with recommending a drainage and IV scheduled for tomorrow 4blood cultures finalized with MSSA source likely right diabetic foot infection blood culture repeat has been negative so far 5we will continue the patient on cefazolin 2 g every 8 hours Family at the bedside question answered Dictation was produced using [employer] dictation software. please excuse any grammatical, word or spelling errors.
--- NOTE | 2024-04-02 14:32 | P.PN ---
Subjective Progress Note Date: 04/02/24 Patient is a very pleasant 59-year-old male came in with complaints of redness in the right leg along with fever elevated white count and anion gap possibly lactic acidosis. Patient had midfoot amputation and now the stump appears to be infected with redness which has been getting worse localized of temperature and also has a plantar ulcer which is pretty small may be stage II. Patient does have leukocytosis as well patient is diabetic with diabetic neuropathy. 03/30/2024 Seen in follow-up on the medical floor. Blood culture positive with gram- positive cocci in clusters repeat blood culture has been ordered and patient continues on IV vancomycin. ID following closely. Foot CT reveals a fluid collection around the first digit on the right side. Today reveal a white blood cell count of 10.5, sodium 136, BUN 21, creatinine 1.03. 03/31/2024 Patient is evaluated today in follow up on the medical floor. His midfoot amputation has no drainage and the redness is improving. His foot remains ed ematous. Has positive blood culture presumptive staph aureus. Labs today showing sodium 135, potassium 3.3, BUN 17, creatinine 0.94. 04/01/2024 Patient is evaluated in follow-up in the medical floor. Improved redness of the right midfoot amputation. Having increased pain to the foot and [place] was increased last night. Today he does report that he is able to get up and ambulate. He remains on IV cefazolin for a positive blood culture of Staph aureus with repeat blood cultures currently pending. 04/02/2024 Patient evaluated today in follow-up. He continues to have swelling to his right foot. Vascular surgery has reevaluated recommending the patient go for an I&D and deep tissue cultures tomorrow. He continues on IV cefazolin with blood cultures showing Staph aureus repeats are currently negative. Review of Systems Constitutional: Denied any fatigue denied any fever. Cardio vascular: denied any chest pain, palpitations Gastrointestinal: denied any nausea, vomiting, diarrhea Pulmonary: Denied any shortness of breath cough Neurologic denied any new focal deficits All inpatient medications were reviewed and appropriate changes in these medications as dictated in the interval history and assessment and plan. PHYSICAL EXAMINATION: GENERAL: The patient is alert and oriented x3, not in any acute distress. Well developed, well nourished. HEENT: Pupils are round and equally reacting to light. EOMI. No scleral icterus. No conjunctival pallor. Normocephalic, atraumatic. No pharyngeal erythema. No thyromegaly. CARDIOVASCULAR: S1 and S2 present. No murmurs, rubs, or gallops. PULMONARY: Chest is clear to auscultation, no wheezing or crackles. ABDOMEN: Soft, nontender, nondistended, normoactive bowel sounds. No palpable organomegaly. MUSCULOSKELETAL: No joint swelling or deformity. EXTREMITIES: No cyanosis, clubbing, or pedal edema. NEUROLOGICAL: Gross neurological examination did not reveal any focal deficits. SKIN: Patient has amputation of right midfoot and the stump area appears to be infected with localized of temperature. Patient does have a ulcer on the plantar surface may be as stage II which is pretty small Assessment and plan -Diabetic foot infection wound infection and cellulitis -Gram positive bacteremia source of infection the infected amputation site preliminary staph aureus on cultures. Repeat Cultures are ordered and pending. -Patient had amputation of the midfoot for osteomyelitis and he has a history of MRSA in the past. -Type 2 diabetes mellitus -Hypertension -Congestive heart failure chronic systolic function EF of around 40 to 45% in the past without any acute exacerbation -Hyperlipidemia -Gastroesophageal reflux DVT prophylaxis: Lovenox GI prophylaxis: Pepcid Full Code Patient scheduled to undergo I&D and deep tissue cultures tomorrow Patient will continue on IV cefazolin. Pending repeat blood cultures Continue supportive care. Tylenol and norco on for pain management Monitor electrolytes and renal function. The impression and plan of care has been dictated by Mervat Harris, Nurse Practitioner as directed. Dr. Nessa MD I have performed a history and physical examination and medical decision making of this patient, discussed the same with the dictator, and agree with the dictators assessment and plan as written, documented as a scribe. Based on total visit time, I have performed more than 50% of this visit. Objective - Vital Signs Vital signs: Vital Signs Temp 99.2 F 04/02/24 13:29 Pulse 75 04/02/24 13:29 Resp 16 04/02/24 13:29 BP 111/65 04/02/24 13:29 Pulse Ox 96 04/02/24 13:29 FiO2 Intake & Output 04/01/24 04/02/24 04/02/24 18:59 06:59 18:59 Other: Voiding Method Toilet Toilet Toilet # Voids 4 - Labs CBC & Chem 7: 04/02/24 05:11 04/02/24 05:11 Labs: Abnormal Lab Results - Last 24 Hours (Table) 04/01/24 04/01/24 04/02/24 Range/Units 16:53 20:47 05:11 RBC 4.07 L (4.40-5.60) X 10*6/uL Hgb 12.2 L (13.0-17.0) g/dL Hct 35.7 L (39.6-50.0) % Glucose (70-110) mg/dL POC Glucose (mg/dL) 268 H 300 H (70-110) mg/dL Calcium (8.7-10.3) mg/dL 04/02/24 04/02/24 04/02/24 Range/Units 05:11 06:50 11:38 RBC (4.40-5.60) X 10*6/uL Hgb (13.0-17.0) g/dL Hct (39.6-50.0) % Glucose 176 H (70-110) mg/dL POC Glucose (mg/dL) 164 H 321 H (70-110) mg/dL Calcium 8.5 L (8.7-10.3) mg/dL Microbiology - Last 24 Hours (Table) 03/31/24 03:43 Blood Culture - Preliminary Blood 03/31/24 12:48 Blood Culture - Preliminary Blood 03/30/24 09:16 Blood Culture - Preliminary Blood 03/29/24 10:55 Blood Culture Gram Stain - Final Blood Blood Culture - Final Staphylococcus aureus Molecular ID Assessment and Plan Time with Patient: Less than 30
[2024-04-02 16:52] LABS: Glucose,Whole Blood 235 mg/dL (70-110)
[2024-04-02 20:53] LABS: Glucose,Whole Blood 240 mg/dL (70-110)
[2024-04-03 06:40] LABS: Glucose,Whole Blood 183 mg/dL (70-110)
[2024-04-03] MEDS ORDERED: MIDAZOLAM 2 MG/2 ML VIAL ONE (08:08)
[2024-04-03] MEDS ORDERED: fentaNYL (PF) 50 MCG/ML 2 ML AMP ONE (08:08)
[2024-04-03] MEDS: LACTATED RINGERS 1,000 ML IV ONE (08:08)
[2024-04-03] MEDS ORDERED: PROPOFOL 10 MG/ML 20 ML VIAL IV ONE (08:08)
--- NOTE | 2024-04-03 09:44 | P.OP ---
Date of Procedure: 04/03/24 Description of Procedure: Preoperative diagnosis: Right lower extremity cellulitis and fluid collection, previous TMA Postoperative diagnosis: Same Procedure: Sharp excisional debridement right plantar wound 0.8 x 0.5 x 0.1 cm to dermis Incision and drainage medial plantar area incision measuring 1.5 cm Surgeon: Aletha Heard D.O. EBL: Less than 5 cc IV fluids: See records Urine output: Not measured Drains: None Complications: None immediately apparent Condition: Stable to recovery Operative indication and findings: Patient is a 59-year-old male with previous TMA for nonhealing diabetic wounds who presents today with worsening of his cellulitis and findings of potential fluid collection at the first metatarsal on CT scan imaging. Due to this he was offered an incision and drainage of the area. Risks and benefits were discussed including but not limited to bleeding, infection and poor wound healing. He seemingly understood and was willing to proceed. Procedure in detail: Patient was taken the operative suite and placed in supine position. The right lower extremities prepped and draped in usual sterile fashion. A preprocedural timeout performed, all parties were in agreement. Starting at the medial side, at the area of essentially the first metatarsal head, incision was made and carried down to the subcutaneous tissue with electrocautery. Blunt dissection was carried about but there was no obvious fluid collection to be drained. At this level a deep tissue culture was obtain ed. The area was irrigated and sutures of 3-0 nylon were placed for skin closure due to no evidence of obvious purulent drainage. The decision was then made to debride the area of the callus with the centralized eschar. This was done with a scalpel. The callus was shaved and at the midportion of the wound, there was a small wound without any significant depth. This appeared healthy again without any tracking or tunneling. At this point the wounds were dressed. The patient transferred to recovery in stable condition having tolerated the procedure well. If there is further issue or concern with nonhealing, the patient will need an MRI versus bone scan to further evaluate for osteomyelitis
[2024-04-03 11:31] LABS: Glucose,Whole Blood 352 mg/dL (70-110)
[2024-04-03] MEDS ORDERED: DEXTROSE 50% SYRINGE 50 ML IVP PRN ×2 (14:06)
--- NOTE | 2024-04-03 14:09 | P.PN ---
Subjective Progress Note Date: 04/03/24 Patient is a very pleasant 59-year-old male came in with complaints of redness in the right leg along with fever elevated white count and anion gap possibly lactic acidosis. Patient had midfoot amputation and now the stump appears to be infected with redness which has been getting worse localized of temperature and also has a plantar ulcer which is pretty small may be stage II. Patient does have leukocytosis as well patient is diabetic with diabetic neuropathy. 03/30/2024 Seen in follow-up on the medical floor. Blood culture positive with gram- positive cocci in clusters repeat blood culture has been ordered and patient continues on IV vancomycin. ID following closely. Foot CT reveals a fluid collection around the first digit on the right side. Today reveal a white blood cell count of 10.5, sodium 136, BUN 21, creatinine 1.03. 03/31/2024 Patient is evaluated today in follow up on the medical floor. His midfoot amputation has no drainage and the redness is improving. His foot remains ed ematous. Has positive blood culture presumptive staph aureus. Labs today showing sodium 135, potassium 3.3, BUN 17, creatinine 0.94. 04/01/2024 Patient is evaluated in follow-up in the medical floor. Improved redness of the right midfoot amputation. Having increased pain to the foot and [place] was increased last night. Today he does report that he is able to get up and ambulate. He remains on IV cefazolin for a positive blood culture of Staph aureus with repeat blood cultures currently pending. 04/02/2024 Patient evaluated today in follow-up. He continues to have swelling to his right foot. Vascular surgery has reevaluated recommending the patient go for an I&D and deep tissue cultures tomorrow. He continues on IV cefazolin with blood cultures showing Staph aureus repeats are currently negative. Blood culture remains positive for Staph aureus we will check an echocardiogram to rule out any endocarditis. Continues on IV cefazolin. 04/03/2024 Patient eval today in follow-up he is postoperative I&D of the right foot. Review of Systems Constitutional: Denied any fatigue denied any fever. Cardio vascular: denied any chest pain, palpitations Gastrointestinal: denied any nausea, vomiting, diarrhea Pulmonary: Denied any shortness of breath cough Neurologic denied any new focal deficits All inpatient medications were reviewed and appropriate changes in these medications as dictated in the interval history and assessment and plan. PHYSICAL EXAMINATION: GENERAL: The patient is alert and oriented x3, not in any acute distress. Well developed, well nourished. HEENT: Pupils are round and equally reacting to light. EOMI. No scleral icterus. No conjunctival pallor. Normocephalic, atraumatic. No pharyngeal erythema. No thyromegaly. CARDIOVASCULAR: S1 and S2 present. No murmurs, rubs, or gallops. PULMONARY: Chest is clear to auscultation, no wheezing or crackles. ABDOMEN: Soft, nontender, nondistended, normoactive bowel sounds. No palpable organomegaly. MUSCULOSKELETAL: No joint swelling or deformity. EXTREMITIES: No cyanosis, clubbing, or pedal edema. NEUROLOGICAL: Gross neurological examination did not reveal any focal deficits. SKIN: Patient has amputation of right midfoot and the stump area appears to be infected with localized of temperature. Patient does have a ulcer on the plantar surface may be as stage II which is pretty small Assessment and plan -Diabetic foot infection wound infection and cellulitis -Gram positive bacteremia source of infection the infected amputation site preliminary staph aureus on cultures. Repeat Cultures are ordered and pending. -Patient had amputation of the midfoot for osteomyelitis and he has a history of MRSA in the past. -Type 2 diabetes mellitus -Hypertension -Congestive heart failure chronic systolic function EF of around 40 to 45% in the past without any acute exacerbation -Hyperlipidemia -Gastroesophageal reflux DVT prophylaxis: Lovenox GI prophylaxis: Pepcid Full Code Patient scheduled to undergo I&D and deep tissue cultures today Patient will continue on IV cefazolin. Pending repeat blood cultures which are positive on the second set for staph aureus. Echocardiogram ordered lasix will be changed to IV to help with swelling of the right lower extremity. Continue supportive care. Tylenol and norco on for pain management Monitor electrolytes and renal function. The impression and plan of care has been dictated by Mervat Harris Nurse Practitioner as directed. Dr. Nessa MD I have performed a history and physical examination and medical decision making of this patient, discussed the same with the dictator, and agree with the dictators assessment and plan as written, documented as a scribe. Based on total visit time, I have performed more than 50% of this visit. Objective - Vital Signs Vital signs: Vital Signs Temp 97.6 F 04/03/24 08:38 Pulse 64 04/03/24 09:08 Resp 17 04/03/24 09:08 BP 107/61 04/03/24 09:08 Pulse Ox 94 L 04/03/24 09:08 FiO2 Intake & Output 04/02/24 04/03/24 04/03/24 18:59 06:59 18:59 Intake Total 350 Output Total 2 Balance 348 Intake: IV 350 Output: Estimated Blood Loss 2 Other: Voiding Method Toilet Toilet # Voids 3 2 - Labs CBC & Chem 7: 04/02/24 05:11 04/02/24 05:11 Labs: Abnormal Lab Results - Last 24 Hours (Table) 04/02/24 04/02/24 04/02/24 Range/Units 11:38 16:50 20:51 POC Glucose (mg/dL) 321 H 235 H 240 H (70-110) mg/dL 04/03/24 Range/Units 06:39 POC Glucose (mg/dL) 183 H (70-110) mg/dL Microbiology - Last 24 Hours (Table) 03/30/24 09:16 Blood Culture Gram Stain - Preliminary Blood Blood Culture - Preliminary Molecular ID 03/31/24 12:48 Blood Culture - Preliminary Blood 03/31/24 03:43 Blood Culture - Preliminary Blood
--- NOTE | 2024-04-03 14:43 | P.PN ---
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 On today's evaluation that is 04/03/2024, Patient is afebrile patient is currently on room air and denies having any shortness of breath, the patient denies any chest pain or cough, the patient denies any nausea vomiting did not have any abdominal pain and no diarrhea, denies any worsening pain to the right foot. No new lab has been obtained today Objective - Vital Signs Vital signs: Vital Signs Temp 97.8 F 04/03/24 09:53 Pulse 63 04/03/24 09:53 Resp 16 04/03/24 09:53 BP 120/76 04/03/24 09:53 Pulse Ox 97 04/03/24 09:53 FiO2 Intake & Output 04/02/24 04/03/24 04/03/24 18:59 06:59 18:59 Intake Total 350 Output Total 2 Balance 348 Intake: IV 350 Output: Estimated Blood Loss 2 Other: Voiding Method Toilet Toilet # Voids 3 2 - Exam GENERAL DESCRIPTION: Middle-age male lying in bed in no distress RESPIRATORY SYSTEM: Unlabored breathing , decreased breath sounds at bases HEART: S1 S2 regular rate and rhythm , ABDOMEN: Soft , no tenderness EXTREMITIES: Right foot is currently dressed - Labs CBC & Chem 7: 04/02/24 05:11 04/02/24 05:11 Labs: Abnormal Lab Results - Last 24 Hours (Table) 04/02/24 04/02/24 04/03/24 Range/Units 16:50 20:51 06:39 POC Glucose (mg/dL) 235 H 240 H 183 H (70-110) mg/dL 04/03/24 Range/Units 11:30 POC Glucose (mg/dL) 352 H (70-110) mg/dL Microbiology - Last 24 Hours (Table) 03/31/24 03:43 Blood Culture - Preliminary Blood 03/30/24 09:16 Blood Culture Gram Stain - Preliminary Blood Blood Culture - Preliminary Molecular ID 03/31/24 12:48 Blood Culture - Preliminary Blood Assessment and Plan (1) Diabetic infection of right foot Current Visit: Yes Status: Acute Code(s): E11.628 - TYPE 2 DIABETES MELLITUS WITH OTHER SKIN COMPLICATIONS; L08.9 - LOCAL INFECTION OF THE SKIN AND SUBCUTANEOUS TISSUE, UNSP SNOMED Code(s): 294782508 (2) Sepsis Current Visit: Yes Status: Acute Code(s): A41.9 - SEPSIS, UNSPECIFIED ORGANISM SNOMED Code(s): 09273750 (3) Allergy to multiple antibiotics Current Visit: No Status: Acute Code(s): Z88.1 - ALLERGY STATUS TO OTHER ANTIBIOTIC AGENTS SNOMED Code(s): 709795665 (4) Bacteremia Current Visit: No Status: Acute Code(s): R78.81 - BACTEREMIA SNOMED Code(s): 9883751 Plan: 1patient presented to hospital with sepsis in this patient who did have fever tachycardia leukocytosis meeting criteria for SIRS/sepsis sources right diabetic infection in this patient presenting with diffuse swelling and redness and concern for possible abscess with previous multiple admission antibiotic exposure will need to cover for more resistant pathogen such as MRSA. 2patient with multiple antibiotic ALLERGIES that would limit the number of antibiotic safe to use. 3 CT of right foot with contrast did show small fluid collection concerning for possible abscess appreciated vascular surgery commended no drainage subsequently did have I&D but no significant abscess recommending either MRI or both scan and we will order both skin and continue with the cefazolin 2 g every 8 hours Family at the bedside question answered Dictation was produced using [employer] dictation software. please excuse any grammatical, word or spelling errors. Time with Patient: Less than 30
[2024-04-03 16:40] LABS: Glucose,Whole Blood 286 mg/dL (70-110)
[2024-04-03] MEDS: INSULIN ASPART (NovoLOG) 100 UNIT/ML VIAL SQ SCH ×2 (16:53)
[2024-04-03 20:12] LABS: Glucose,Whole Blood 231 mg/dL (70-110)
[2024-04-03] MEDS: INSULIN DETEMIR (LEVEMIR) 100 UNIT/ML SYR SQ SCH (20:44)
[2024-04-04 06:45] LABS: Glucose,Whole Blood 167 mg/dL (70-110)
[2024-04-04] MEDS: FUROSEMIDE 10 MG/ML 4 ML VIAL IV SCH (08:46)
[2024-04-04 09:05] LABS: Blood Urea Nitrogen 17.7 mg/dL (9.0-27.0); Calcium 8.6 mg/dL (8.7-10.3); Carbon Dioxide 24.3 mmol/L (21.6-31.8); Chloride 105 mmol/L (96-109); Glucose 161 mg/dL (70-110); Potassium 4.2 mmol/L (3.5-5.5); Sodium 142 mmol/L (135-145)
[2024-04-04 09:08] LABS: Basophils # (A) 0.02 X 10*3/uL (0.00-0.10); Basophils % (A) 0.4 %; Eosinophils # (A) 0.23 X 10*3/uL (0.04-0.35); Eosinophils % (A) 4.3 %; HCT 37.3 % (39.6-50.0); HGB 12.6 g/dL (13.0-17.0); Lymphocytes # (A) 1.95 X 10*3/uL (0.90-5.00); Lymphocytes % (A) 36.6 %; MCH 29.9 pg (27.0-32.0); MCHC 33.8 g/dL (32.0-37.0); MCV 88.6 FL (80.0-97.0); Mean Platelet Volume 9.5 FL (9.5-12.2); Monocytes # (A) 0.51 X 10*3/uL (0.20-1.00); Monocytes % (A) 9.6 %; NRBC Per 100 WBC 0 X 10*3/uL (0.00-0.01); Neutrophils # (A) 2.56 X 10*3/uL (1.80-7.70); Platelet Count 205 X 10*3/uL (140-440); RBC 4.21 X 10*6/uL (4.40-5.60); RDW 12.9 % (11.5-14.5); WBC 5.33 X 10*3/uL (4.50-10.00)
[2024-04-04 11:46] LABS: Glucose,Whole Blood 393 mg/dL (70-110)
--- NOTE | 2024-04-04 12:59 | P.PN ---
Subjective Progress Note Date: 04/04/24 Patient is a very pleasant 59-year-old male came in with complaints of redness in the right leg along with fever elevated white count and anion gap possibly lactic acidosis. Patient had midfoot amputation and now the stump appears to be infected with redness which has been getting worse localized of temperature and also has a plantar ulcer which is pretty small may be stage II. Patient does have leukocytosis as well patient is diabetic with diabetic neuropathy. 03/30/2024 Seen in follow-up on the medical floor. Blood culture positive with gram- positive cocci in clusters repeat blood culture has been ordered and patient continues on IV vancomycin. ID following closely. Foot CT reveals a fluid collection around the first digit on the right side. Today reveal a white blood cell count of 10.5, sodium 136, BUN 21, creatinine 1.03. 03/31/2024 Patient is evaluated today in follow up on the medical floor. His midfoot amputation has no drainage and the redness is improving. His foot remains ed ematous. Has positive blood culture presumptive staph aureus. Labs today showing sodium 135, potassium 3.3, BUN 17, creatinine 0.94. 04/01/2024 Patient is evaluated in follow-up in the medical floor. Improved redness of the right midfoot amputation. Having increased pain to the foot and [place] was increased last night. Today he does report that he is able to get up and ambulate. He remains on IV cefazolin for a positive blood culture of Staph aureus with repeat blood cultures currently pending. 04/02/2024 Patient evaluated today in follow-up. He continues to have swelling to his right foot. Vascular surgery has reevaluated recommending the patient go for an I&D and deep tissue cultures tomorrow. He continues on IV cefazolin with blood cultures showing Staph aureus repeats are currently negative. Blood culture remains positive for Staph aureus we will check an echocardiogram to rule out any endocarditis. Continues on IV cefazolin. 04/03/2024 Patient eval today in follow-up he is postoperative I&D of the right foot. 04/04/2024 Patient is evaluated today in follow up resting in bed. No acute complaints. He states the pain to the right foot is controlled with IV toradol and the oral norco. He is postoperative I and D of the right foot without evidence of abscess. He is currently pending MRI of the foot as there is concern for osteomyelitis. Abs to reveal a white blood cell count of 5.33, hemoglobin 12.6, sodium 142, potassium 4.2, BUN of 17.7, creatinine 1.0. Blood Culture is showing is present to Staph aureus x 2. Wound culture is currently pending at this time. Review of Systems Constitutional: Denied any fatigue denied any fever. Cardio vascular: denied any chest pain, palpitations Gastrointestinal: denied any nausea, vomiting, diarrhea Pulmonary: Denied any shortness of breath cough Neurologic denied any new focal deficits All inpatient medications were reviewed and appropriate changes in these medications as dictated in the interval history and assessment and plan. PHYSICAL EXAMINATION: GENERAL: The patient is alert and oriented x3, not in any acute distress. Well developed, well nourished. HEENT: Pupils are round and equally reacting to light. EOMI. No scleral icterus. No conjunctival pallor. Normocephalic, atraumatic. No pharyngeal erythema. No thyromegaly. CARDIOVASCULAR: S1 and S2 present. No murmurs, rubs, or gallops. PULMONARY: Chest is clear to auscultation, no wheezing or crackles. ABDOMEN: Soft, nontender, nondistended, normoactive bowel sounds. No palpable organomegaly. MUSCULOSKELETAL: No joint swelling or deformity. EXTREMITIES: No cyanosis, clubbing, or pedal edema. NEUROLOGICAL: Gross neurological examination did not reveal any focal deficits. SKIN: Patient has amputation of right midfoot and the stump area appears to be infected with localized of temperature. Patient does have a ulcer on the plantar surface may be as stage II which is pretty small Assessment and plan -Diabetic foot infection wound infection and cellulitis -Gram positive bacteremia source of infection the infected amputation site conc thony for osteomyelitis preliminary staph aureus on cultures. Repeat Cultures are ordered and pending. -Patient had amputation of the midfoot for osteomyelitis and he has a history of MRSA in the past. -Type 2 diabetes mellitus -Hypertension -Congestive heart failure chronic systolic function EF of around 40 to 45% in the past without any acute exacerbation -Hyperlipidemia -Gastroesophageal reflux DVT prophylaxis: Lovenox GI prophylaxis: Pepcid Full Code Is postoperative I&D of the right midfoot currently pending surgical cultures Patient will continue on IV cefazolin. Will go for MRI of the right foot tomorrow. Pending repeat blood cultures which are positive on the second set for staph aureus. Echocardiogram ordered Continue supportive care. Tylenol and norco on for pain management Monitor electrolytes and renal function. The impression and plan of care has been dictated by Mervat Harris, Nurse Practitioner as directed. Dr. Nessa MD I have performed a history and physical examination and medical decision making of this patient, discussed the same with the dictator, and agree with the dictators assessment and plan as written, documented as a scribe. Based on total visit time, I have performed more than 50% of this visit. Objective - Vital Signs Vital signs: Vital Signs Temp 97.8 F 04/04/24 07:39 Pulse 69 04/04/24 07:39 Resp 17 04/04/24 07:39 BP 138/81 04/04/24 07:39 Pulse Ox 95 04/04/24 07:39 FiO2 Intake & Output 04/03/24 04/04/24 04/04/24 19:59 06:59 18:59 Intake Total Output Total Balance Intake: IV Output: Estimated Blood Loss Other: Voiding Method # Voids - Labs CBC & Chem 7: 04/04/24 04:40 04/04/24 04:40 Labs: Abnormal Lab Results - Last 24 Hours (Table) 04/03/24 04/03/24 04/04/24 Range/Units 16:39 20:10 04:40 RBC 4.21 L (4.40-5.60) X 10*6/uL Hgb 12.6 L (13.0-17.0) g/dL Hct 37.3 L (39.6-50.0) % Immature Gran # 0.06 H (0.00-0.04) X 10*3/uL Anion Gap (4.00-12.00) mmol/L Glucose (70-110) mg/dL POC Glucose (mg/dL) 286 H 231 H (70-110) mg/dL Calcium (8.7-10.3) mg/dL 04/04/24 04/04/24 04/04/24 Range/Units 04:40 06:44 11:44 RBC (4.40-5.60) X 10*6/uL Hgb (13.0-17.0) g/dL Hct (39.6-50.0) % Immature Gran # (0.00-0.04) X 10*3/uL Anion Gap 12.70 H (4.00-12.00) mmol/L Glucose 161 H (70-110) mg/dL POC Glucose (mg/dL) 167 H 393 H (70-110) mg/dL Calcium 8.6 L (8.7-10.3) mg/dL Microbiology - Last 24 Hours (Table) 03/30/24 09:16 Blood Culture Gram Stain - Preliminary Blood Blood Culture - Preliminary Presumptive Staph aureus Molecular ID 04/03/24 08:30 Gram Stain - Preliminary Foot - Right 03/31/24 12:48 Blood Culture - Preliminary Blood 03/31/24 03:43 Blood Culture - Preliminary Blood Assessment and Plan Time with Patient: Less than 30
--- NOTE | 2024-04-04 14:34 | P.PN ---
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 On today's evaluation that is 04/04/2024, patient has been afebrile, patient is breathing comfortably and is currently on room air, patient denies having any significant cough no chest pain, patient denies nausea vomiting or diarrhea and no abdominal pain pain to the right foot has decreased in intensity. Patient white count is 5.33, creatinine is 1.0 blood culture repeat as well as right foot culture currently pending Objective - Vital Signs Vital signs: Vital Signs Temp 97.5 F L 04/04/24 13:08 Pulse 71 04/04/24 13:08 Resp 16 04/04/24 13:08 BP 100/61 04/04/24 13:08 Pulse Ox 95 04/04/24 13:08 FiO2 Intake & Output 04/03/24 04/04/24 04/04/24 19:59 06:59 18:59 Intake Total Output Total Balance Intake: IV Output: Estimated Blood Loss Other: Voiding Method # Voids - Exam GENERAL DESCRIPTION: Middle-age male lying in bed in no distress RESPIRATORY SYSTEM: Unlabored breathing , decreased breath sounds at bases HEART: S1 S2 regular rate and rhythm , ABDOMEN: Soft , no tenderness EXTREMITIES: Right foot is currently dressed - Labs CBC & Chem 7: 04/04/24 04:40 04/04/24 04:40 Labs: Abnormal Lab Results - Last 24 Hours (Table) 04/03/24 04/03/24 04/04/24 Range/Units 16:39 20:10 04:40 RBC 4.21 L (4.40-5.60) X 10*6/uL Hgb 12.6 L (13.0-17.0) g/dL Hct 37.3 L (39.6-50.0) % Immature Gran # 0.06 H (0.00-0.04) X 10*3/uL Anion Gap (4.00-12.00) mmol/L Glucose (70-110) mg/dL POC Glucose (mg/dL) 286 H 231 H (70-110) mg/dL Calcium (8.7-10.3) mg/dL 04/04/24 04/04/24 04/04/24 Range/Units 04:40 06:44 11:44 RBC (4.40-5.60) X 10*6/uL Hgb (13.0-17.0) g/dL Hct (39.6-50.0) % Immature Gran # (0.00-0.04) X 10*3/uL Anion Gap 12.70 H (4.00-12.00) mmol/L Glucose 161 H (70-110) mg/dL POC Glucose (mg/dL) 167 H 393 H (70-110) mg/dL Calcium 8.6 L (8.7-10.3) mg/dL Microbiology - Last 24 Hours (Table) 03/30/24 09:16 Blood Culture Gram Stain - Preliminary Blood Blood Culture - Preliminary Presumptive Staph aureus Molecular ID 04/03/24 08:30 Gram Stain - Preliminary Foot - Right 03/31/24 12:48 Blood Culture - Preliminary Blood 03/31/24 03:43 Blood Culture - Preliminary Blood Assessment and Plan (1) Diabetic infection of right foot Current Visit: Yes Status: Acute Code(s): E11.628 - TYPE 2 DIABETES MELLITUS WITH OTHER SKIN COMPLICATIONS; L08.9 - LOCAL INFECTION OF THE SKIN AND SUBCUTANEOUS TISSUE, UNSP SNOMED Code(s): 819952095 (2) Sepsis Current Visit: Yes Status: Acute Code(s): A41.9 - SEPSIS, UNSPECIFIED ORGANI SM SNOMED Code(s): 97645876 (3) Allergy to multiple antibiotics Current Visit: No Status: Acute Code(s): Z88.1 - ALLERGY STATUS TO OTHER ANTIBIOTIC AGENTS SNOMED Code(s): 711046788 (4) Bacteremia Current Visit: No Status: Acute Code(s): R78.81 - BACTEREMIA SNOMED Code(s): 4395025 Plan: 1patient presented to hospital with sepsis in this patient who did have fever tachycardia leukocytosis meeting criteria for SIRS/sepsis sources right diabetic infection in this patient presenting with diffuse swelling and redness and concern for possible abscess with previous multiple admission antibiotic exposure will need to cover for more resistant pathogen such as MRSA. 2patient with multiple antibiotic ALLERGIES that would limit the number of antibiotic safe to use. 3 CT of right foot with contrast did show small fluid collection concerning for possible abscess appreciated did have I&D with no significant purulent drainage MRI has been ordered for further evaluation continue with the cefazolin Dictation was produced using [employer] dictation software. please excuse any grammatical, word or spelling errors. Time with Patient: Less than 30
[2024-04-04 16:44] LABS: Glucose,Whole Blood 225 mg/dL (70-110)
[2024-04-04 21:00] LABS: Glucose,Whole Blood 383 mg/dL (70-110)
[2024-04-05 06:54] LABS: Glucose,Whole Blood 177 mg/dL (70-110)
[2024-04-05] MEDS: FUROSEMIDE 40 MG TAB PO SCH (09:29)
[2024-04-05 11:38] LABS: Glucose,Whole Blood 318 mg/dL (70-110)
--- NOTE | 2024-04-05 11:44 | P.PN ---
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 On today's evaluation that is 04/05/2024, Patient is afebrile this morning patient denies having any chest pain shortness of breath or cough, the patient is currently on room air, patient denies any abdominal pain no diarrhea no nausea no vomiting pain to the right foot is currently controlled. No new lab has been obtained today blood culture repeat has been negative Objective - Vital Signs Vital signs: Vital Signs Temp 98.3 F 04/05/24 07:10 Pulse 64 04/05/24 09:30 Resp 16 04/05/24 09:30 BP 127/73 04/05/24 07:10 Pulse Ox 97 04/05/24 07:10 FiO2 Intake & Output 04/04/24 04/05/24 04/05/24 18:59 06:59 18:59 Other: Voiding Method Toilet Toilet # Voids 3 - Exam GENERAL DESCRIPTION: Middle-age male lying in bed in no distress RESPIRATORY SYSTEM: Unlabored breathing , decreased breath sounds at bases HEART: S1 S2 regular rate and rhythm , ABDOMEN: Soft , no tenderness EXTREMITIES: Right foot is currently dressed - Labs CBC & Chem 7: 04/04/24 04:40 04/04/24 04:40 Labs: Abnormal Lab Results - Last 24 Hours (Table) 04/04/24 04/04/24 04/04/24 Range/Units 11:44 16:42 20:59 POC Glucose (mg/dL) 393 H 225 H 383 H (70-110) mg/dL 04/05/24 04/05/24 Range/Units 06:53 11:36 POC Glucose (mg/dL) 177 H 318 H (70-110) mg/dL Microbiology - Last 24 Hours (Table) 04/03/24 11:13 Blood Culture - Preliminary Blood 04/03/24 08:30 Gram Stain - Preliminary Foot - Right Wound Culture - Preliminary 03/30/24 09:16 Blood Culture Gram Stain - Preliminary Blood Blood Culture - Preliminary Presumptive Staph aureus Molecular ID Assessment and Plan (1) Diabetic infection of right foot Current Visit: Yes Status: Acute Code(s): E11.628 - TYPE 2 DIABETES MELLITUS WITH OTHER SKIN COMPLICATIONS; L08.9 - LOCAL INFECTION OF THE SKIN AND SUBCUTANEOUS TISSUE, UNSP SNOMED Code(s): 237383489 (2) Sepsis Current Visit: Yes Status: Acute Code(s): A41.9 - SEPSIS, UNSPECIFIED ORGANI SM SNOMED Code(s): 35736124 (3) Allergy to multiple antibiotics Current Visit: No Status: Acute Code(s): Z88.1 - ALLERGY STATUS TO OTHER ANTIBIOTIC AGENTS SNOMED Code(s): 593411113 (4) Bacteremia Current Visit: No Status: Acute Code(s): R78.81 - BACTEREMIA SNOMED Code(s): 3187989 Plan: 1patient presented to hospital with sepsis in this patient who did have fever tachycardia leukocytosis meeting criteria for SIRS/sepsis sources right diabetic infection in this patient presenting with diffuse swelling and redness and concern for possible abscess with previous multiple admission antibiotic exposure will need to cover for more resistant pathogen such as MRSA. 2patient with multiple antibiotic ALLERGIES that would limit the number of antibiotic safe to use. 3 CT of right foot with contrast did show small fluid collection concerning for possible abscess, patient did have I&D with no significant purulent drainage 4patient is currently waiting for echocardiogram and MRI to complete the workup continue with the cefazolin the patient already get the PICC line Dictation was produced using [employer] dictation software. please excuse any grammatical, word or spelling errors. Time with Patient: Less than 30
--- NOTE | 2024-04-05 11:58 | P.PN ---
Subjective Progress Note Date: 04/05/24 Principal diagnosis: Right foot infection Patient seen and examined as a follow-up. He underwent debridement of his right foot callus and I&D. Repeat blood cultures have been negative. Has been afebrile. His place. He is scheduled for MRI of the right lower extremity. Objective - Vital Signs Vital signs: Vital Signs Temp 98.3 F 04/05/24 07:10 Pulse 73 04/05/24 07:10 Resp 16 04/05/24 07:10 BP 127/73 04/05/24 07:10 Pulse Ox 97 04/05/24 07:10 FiO2 Intake & Output 04/04/24 04/05/24 04/05/24 18:59 06:59 18:59 Other: Voiding Method Toilet # Voids 3 - Exam General appearance: The patient is alert, oriented, appears in no acute distress. HET: Head is normocephalic and atraumatic. Neck: Supple. Abdomen: Soft, nondistended. Extremities: Right TMA well-healed. Ecchymosis on dorsal aspect of foot. Incision well-approximated with sutures. Plantar wound without any redness or drainage. Neurological: No focal deficits. Strength intact. - Labs CBC & Chem 7: 04/04/24 04:40 04/04/24 04:40 Labs: Abnormal Lab Results - Last 24 Hours (Table) 04/04/24 04/04/24 04/04/24 Range/Units 04:40 04:40 11:44 RBC 4.21 L (4.40-5.60) X 10*6/uL Hgb 12.6 L (13.0-17.0) g/dL Hct 37.3 L (39.6-50.0) % Immature Gran # 0.06 H (0.00-0.04) X 10*3/uL Anion Gap 12.70 H (4.00-12.00) mmol/L Glucose 161 H (70-110) mg/dL POC Glucose (mg/dL) 393 H (70-110) mg/dL Calcium 8.6 L (8.7-10.3) mg/dL 04/04/24 04/04/24 04/05/24 Range/Units 16:42 20:59 06:53 RBC (4.40-5.60) X 10*6/uL Hgb (13.0-17.0) g/dL Hct (39.6-50.0) % Immature Gran # (0.00-0.04) X 10*3/uL Anion Gap (4.00-12.00) mmol/L Glucose (70-110) mg/dL POC Glucose (mg/dL) 225 H 383 H 177 H (70-110) mg/dL Calcium (8.7-10.3) mg/dL Microbiology - Last 24 Hours (Table) 04/03/24 11:13 Blood Culture - Preliminary Blood 04/03/24 08:30 Gram Stain - Preliminary Foot - Right Wound Culture - Preliminary 03/30/24 09:16 Blood Culture Gram Stain - Preliminary Blood Blood Culture - Preliminary Presumptive Staph aureus Molecular ID Assessment and Plan Assessment: 1. Right lower extremity cellulitis and fluid collection status post excisional debridement and I&D 2. Bacteremia, blood cultures positive Staph aureus 3. Diabetes mellitus 4. Previous right transmetatarsal amputation for nonhealing infected diabetic wound 04/2023 Plan: 1. Continue IV antibiotics per recommendations from infectious disease 2. MRI right lower extremity pending Thank you for this consultation, we will continue to follow. The impression and plan of care has been dictated as directed. Dr. Sandoval I performed a history and examination of this patient, discussed the same with the dictator. I agree with the dictator's note ,documented as a scribe. Any additional findings or plans will be noted.
[2024-04-05 14:10] VITALS: BMI 29.6
[2024-04-05 16:25] LABS: Glucose,Whole Blood 352 mg/dL (70-110)
--- NOTE | 2024-04-05 18:05 | P.PN ---
Subjective Progress Note Date: 04/05/24 Patient is a very pleasant 59-year-old male came in with complaints of redness in the right leg along with fever elevated white count and anion gap possibly lactic acidosis. Patient had midfoot amputation and now the stump appears to be infected with redness which has been getting worse localized of temperature and also has a plantar ulcer which is pretty small may be stage II. Patient does have leukocytosis as well patient is diabetic with diabetic neuropathy. 03/30/2024 Seen in follow-up on the medical floor. Blood culture positive with gram- positive cocci in clusters repeat blood culture has been ordered and patient continues on IV vancomycin. ID following closely. Foot CT reveals a fluid collection around the first digit on the right side. Today reveal a white blood cell count of 10.5, sodium 136, BUN 21, creatinine 1.03. 03/31/2024 Patient is evaluated today in follow up on the medical floor. His midfoot amputation has no drainage and the redness is improving. His foot remains ed ematous. Has positive blood culture presumptive staph aureus. Labs today showing sodium 135, potassium 3.3, BUN 17, creatinine 0.94. 04/01/2024 Patient is evaluated in follow-up in the medical floor. Improved redness of the right midfoot amputation. Having increased pain to the foot and [place] was increased last night. Today he does report that he is able to get up and ambulate. He remains on IV cefazolin for a positive blood culture of Staph aureus with repeat blood cultures currently pending. 04/02/2024 Patient evaluated today in follow-up. He continues to have swelling to his right foot. Vascular surgery has reevaluated recommending the patient go for an I&D and deep tissue cultures tomorrow. He continues on IV cefazolin with blood cultures showing Staph aureus repeats are currently negative. Blood culture remains positive for Staph aureus we will check an echocardiogram to rule out any endocarditis. Continues on IV cefazolin. 04/03/2024 Patient eval today in follow-up he is postoperative I&D of the right foot. 04/04/2024 Patient is evaluated today in follow up resting in bed. No acute complaints. He states the pain to the right foot is controlled with IV toradol and the oral norco. He is postoperative I and D of the right foot without evidence of abscess. He is currently pending MRI of the foot as there is concern for osteomyelitis. Abs to reveal a white blood cell count of 5.33, hemoglobin 12.6, sodium 142, potassium 4.2, BUN of 17.7, creatinine 1.0. Blood Culture is showing is present to Staph aureus x 2. Wound culture is currently pending at this time. 04/05/2024 Patient evaluated in follow up. Pending foot MRI today. Blood cultures with staphylococcus aureus and continues on IV cefazolin. Echocardiogram pending. No other complaints today. Review of Systems Constitutional: Denied any fatigue denied any fever. Cardio vascular: denied any chest pain, palpitations Gastrointestinal: denied any nausea, vomiting, diarrhea Pulmonary: Denied any shortness of breath cough Neurologic denied any new focal deficits All inpatient medications were reviewed and appropriate changes in these medications as dictated in the interval history and assessment and plan. PHYSICAL EXAMINATION: GENERAL: The patient is alert and oriented x3, not in any acute distress. Well developed, well nourished. HEENT: Pupils are round and equally reacting to light. EOMI. No scleral icterus. No conjunctival pallor. Normocephalic, atraumatic. No pharyngeal erythema. No thyromegaly. CARDIOVASCULAR: S1 and S2 present. No murmurs, rubs, or gallops. PULMONARY: Chest is clear to auscultation, no wheezing or crackles. ABDOMEN: Soft, nontender, nondistended, normoactive bowel sounds. No palpable organomegaly. MUSCULOSKELETAL: No joint swelling or deformity. EXTREMITIES: No cyanosis, clubbing, or pedal edema. NEUROLOGICAL: Gross neurological examination did not reveal any focal deficits. SKIN: Patient has amputation of right midfoot and the stump area appears to be infected with localized of temperature. Patient does have a ulcer on the plantar surface may be as stage II which is pretty small Assessment and plan -Diabetic foot infection wound infection and cellulitis -Gram positive bacteremia source of infection the infected amputation site concern for osteomyelitis preliminary staph aureus on cultures. Repeat Cultures are ordered and pending. -Patient had amputation of the midfoot for osteomyelitis and he has a history of MRSA in the past. -Type 2 diabetes mellitus -Hypertension -Congestive heart failure chronic systolic function EF of around 40 to 45% in the past without any acute exacerbation -Hyperlipidemia -Gastroesophageal reflux DVT prophylaxis: Lovenox GI prophylaxis: Pepcid Full Code Is postoperative I&D of the right midfoot currently pending surgical cultures Patient will continue on IV cefazolin. Will go for MRI of the right foot today. Pending repeat blood cultures which are positive on the second set for staph aureus. Echocardiogram ordered Continue supportive care. Tylenol and norco on for pain management Monitor electrolytes and renal function. The impression and plan of care has been dictated by Mervat Harris, Nurse Practitioner as directed. Dr. Nessa MD I have performed a history and physical examination and medical decision making of this patient, discussed the same with the dictator, and agree with the dictators assessment and plan as written, documented as a scribe. Based on total visit time, I have performed more than 50% of this visit. Objective - Vital Signs Vital signs: Vital Signs Temp 96.9 F L 04/05/24 13:30 Pulse 79 04/05/24 13:30 Resp 16 04/05/24 13:30 BP 117/78 04/05/24 13:30 Pulse Ox 95 04/05/24 13:30 FiO2 Intake & Output 04/04/24 04/05/24 04/05/24 18:59 06:59 18:59 Weight 113.398 kg Other: Voiding Method Toilet Toilet # Voids 3 - Labs CBC & Chem 7: 04/04/24 04:40 04/04/24 04:40 Labs: Abnormal Lab Results - Last 24 Hours (Table) 04/04/24 04/05/24 04/05/24 Range/Units 20:59 06:53 11:36 POC Glucose (mg/dL) 383 H 177 H 318 H (70-110) mg/dL 04/05/24 Range/Units 16:24 POC Glucose (mg/dL) 352 H (70-110) mg/dL Microbiology - Last 24 Hours (Table) 03/31/24 12:48 Blood Culture - Final Blood 03/30/24 09:16 Blood Culture Gram Stain - Final Blood Blood Culture - Final Staphylococcus aureus Molecular ID 03/31/24 03:43 Blood Culture - Final Blood 04/03/24 11:13 Blood Culture - Preliminary Blood 04/03/24 08:30 Gram Stain - Preliminary Foot - Right Wound Culture - Preliminary Assessment and Plan Time with Patient: Less than 30
[2024-04-05 20:31] LABS: Glucose,Whole Blood 300 mg/dL (70-110)
--- NOTE | 2024-04-05 21:03 | MR ---
EXAMINATION TYPE: MR foot RT wo/w con DATE OF EXAM: 04/05/2024 12:54 PM COMPARISON: 3 phase bone scan CLINICAL INDICATION: Male, 59 years old with history of rule out osteomyelitis; PHH, Right foot absce ss, swelling/fluid around first digit, recent surgery. TECHNIQUE: Multiplanar, multisequence MR imaging of the right forefoot was performed administration of IV gadolinium contrast. MR contrast: IV Contrast: 11 mL Gadobutrol FINDINGS: Streaky soft tissue edema seen throughout the white matter. There is been amputation changes througho ut the metatarsals of digits 1 through 5 there is a fluid collection just deep to the skin on the [place] surface measuring 30 x 14 x 33 mm. Small pocket of fluid may also be present near the medial aspect first digit measuring up to 13 x 6 m m. Fluid tracks to the plantar surface of the first digit series 11/07/2000 image 10 the first digit me tatarsal amputation site may have some mild decreased signal suggesting bone marrow edema/possible os teomyelitis. There is no evidence of fracture. Musculature demonstrates age-appropriate signal and volume. Flexor tendons are intact. Extensor tendons are intact. No evidence of tenosynovitis. IMPRESSION: Postsurgical changes with forefoot amputation and diffuse streaky edema throughout the soft tissues. There is thought to be a fluid collection just deep to the skin on the dorsal surface of the foot . A dditional fluid around the first digit metatarsal amputation site with possible small abscesses also present. There is thought to be some ostial myelitis involving the first digit metatarsal. [facility], , 04/05/2024 9:01 PM
[2024-04-06 06:52] LABS: Glucose,Whole Blood 170 mg/dL (70-110)
--- NOTE | 2024-04-06 08:33 | P.PN ---
Subjective Progress Note Date: 04/06/24 Principal diagnosis: Right foot infection Patient seen and examined today as a follow-up. States he still having pain in the distal aspect of his right ge. MRI shows fluid collection on dorsal aspect near the first metatarsal. Repeat blood cultures with no growth. Deep tissue wound culture pending. Patient has been afebrile. MRI of right foot reports fluid over dorsal aspect of right foot and near first metatarsal, as well as osteomyelitis of the first metatarsal. Objective - Vital Signs Vital signs: Vital Signs Temp 97.4 F L 04/06/24 03:04 Pulse 71 04/06/24 03:04 Resp 15 04/06/24 03:04 BP 116/68 04/06/24 03:04 Pulse Ox 95 04/06/24 03:04 FiO2 Intake & Output 04/05/24 04/06/24 04/06/24 18:59 06:59 18:59 Weight 113.398 kg Other: Voiding Method Toilet Urinal # Voids 5 - Exam General appearance: The patient is alert, oriented, appears in no acute distress. HET: Head is normocephalic and atraumatic. Neck: Supple. Abdomen: Soft, nondistended. Extremities: Right TMA well-healed. Ecchymosis on dorsal aspect of foot. Incision well-approximated with sutures. Plantar wound without any redness or drainage. Tender to palpation over distal aspect of right ge. Neurological: No focal deficits. Strength intact. - Labs CBC & Chem 7: 04/04/24 04:40 04/04/24 04:40 Labs: Abnormal Lab Results - Last 24 Hours (Table) 04/05/24 04/05/24 04/05/24 Range/Units 11:36 16:24 20:30 POC Glucose (mg/dL) 318 H 352 H 300 H (70-110) mg/dL 04/06/24 Range/Units 06:50 POC Glucose (mg/dL) 170 H (70-110) mg/dL Microbiology - Last 24 Hours (Table) 04/03/24 11:13 Blood Culture - Preliminary Blood 03/31/24 12:48 Blood Culture - Final Blood 03/30/24 09:16 Blood Culture Gram Stain - Final Blood Blood Culture - Final Staphylococcus aureus Molecular ID 03/31/24 03:43 Blood Culture - Final Blood Assessment and Plan Assessment: 1. Right lower extremity cellulitis and fluid collection status post excisional debridement and I&D 2. Bacteremia, blood cultures positive Staph aureus with repeat blood cultures with no growth 3. Diabetes mellitus 4. Previous right transmetatarsal amputation for nonhealing infected diabetic wound 04/2023 Plan: 1. Continue IV antibiotics per recommendations from infectious disease 2. No further surgical plans from vascular surgery. He can follow-up as an outpatient. Discussed with patient if infection does not clear may need to consider below the knee amputation. Patient verbalizes understanding Thank you for this consultation, patient is cleared from vascular surgery for discharge. The impression and plan of care has been dictated as directed. Dr. Heard I performed a history and examination of this patient, discussed the same with the dictator. I agree with the dictator's note ,documented as a scribe. Any additional findings or plans will be noted.
[2024-04-06 10:15] VITALS: BP 117/75; PULSE 75; RESP 18; TEMP 97.9
[2024-04-06 11:27] LABS: Glucose,Whole Blood 322 mg/dL (70-110)
--- NOTE | 2024-04-06 11:56 | P.DS ---
Providers Date of admission: 03/29/24 12:26 Attending physician: Alejandra Szymanski Consults: 03/29/24 13:48 Consult Physician Urgent Consulting Provider: Clarence Tavares Consult Reason/Comments: right foot cellulitis with sepsis Do you want consulting provider notified?: Yes 03/29/24 14:09 Consult Physician Routine Consulting Provider: Clarence Tavares Consult Reason/Comments: Diabetic foot infection Do you want consulting provider notified?: Yes 03/29/24 21:30 Consult Physician Routine Consulting Provider: Aletha Heard Consult Reason/Comments: right foot abnormal CT , drainage and cultures Do you want consulting provider notified?: Yes Primary care physician: Stated None Hospital Course: Final Diagnosis -Diabetic foot infection wound infection and cellulitis -Gram positive bacteremia source of infection the infected amputation site concern for osteomyelitis preliminary staph aureus on cultures. Repeat Cultures are ordered and pending. -Patient had amputation of the midfoot for osteomyelitis and he has a history of MRSA in the past. -Type 2 diabetes mellitus diabetic neuropathy -Hypertension -Congestive heart failure chronic systolic function EF of around 40 to 45% in the past without any acute exacerbation -Hyperlipidemia -Gastroesophageal reflux Discharge Disposition Stable for discharge home. He will continue IV antibiotics through a PICC line for 6 weeks course of IV cefazolin. Patient will follow-up with Dr. Tavares in the office in 1 week. To follow-up with vascular surgery. Patient needs to establish care with a family doctor and he is understanding of this. Recommend to repeat blood work weekly for the next 6 weeks while on IV antibiotic therapy. Hospital Course Patient is a very pleasant 59-year-old male came in with complaints of redness in the right leg along with fever elevated white count and anion gap possibly lactic acidosis. Patient had midfoot amputation and now the stump appears to be infected with redness which has been getting worse localized of temperature and also has a plantar ulcer which is pretty small may be stage II. Patient does have leukocytosis as well patient is diabetic with diabetic neuropathy. Patient was admitted to the hospital with a consult placed to vascular surgery and infectious disease. Patient did have a positive Staphylococcus aureus is continued on IV cefazolin. He underwent I&D of the right foot without a notable abscess. Following this because of the persistent bacteremia he had a foot MRI which reveals surgical changes with forefoot amputation diffuse streaky edema throughout the soft tissues. There is thought to be a fluid collection just deep to the skin on the dorsal surface of the foot additional fluid around the first digit metatarsal amputation site with possible small abscesses are also present. There is thought to be some osteomyelitis involving the first digit metatarsal. Surgery reviewed the MRI and felt that there was no surgical intervention needed at this time. Patient had a PICC line placed and will continue on IV cefazolin for a 6 weeks course of outpatient antibiotic therapy under the care of Dr. Tavares. He is not having any complaints no shortness of breath no chest pain no nausea vomiting or diarrhea. He has been up ambulating and having minimal pain to the right foot. Glucose has been quite elevated this hospital stay in the 300s. Patient will continue on metformin and Farxiga however we will recommend to do a small dose of long-acting insulin daily. patient needs to establish care with a family doctor. Hemodynamically he is stable. He will be discharged home today. Please see medication reconciliation for a list of current medications. Thank you for allowing us to participate in the care of this patient. The impression and plan of care has been dictated by Mervat Harris, Nurse Practitioner as directed. Dr. Nessa MD I have performed a history and physical examination and medical decision making of this patient, discussed the same with the dictator, and agree with the dictators assessment and plan as written, documented as a scribe. Based on total visit time, I have performed more than 50% of this visit. Patient Condition at Discharge: Stable Plan - Discharge Summary Discharge Rx Participant: No New Discharge Prescriptions: New Atorvastatin [Lipitor] 20 mg PO HS #30 tab Pen Needle, Diabetic [Pen Needle] 1 each MC DAILY #30 each Famotidine [Pepcid] 20 mg PO BID #60 tab Insulin Degludec [Tresiba Flextouch U-100 Pen] 15 units SQ DAILY #5 each Continue hydrALAZINE HCL [Apresoline] 25 mg PO BID #90 tab metFORMIN HCL 1,000 mg PO BID Dapagliflozin Propanediol [Farxiga] 10 mg PO DAILY #30 tab Spironolactone [Aldactone] 25 mg PO DAILY #30 tab Aspirin 81 mg PO DAILY #30 tab Furosemide [Lasix] 40 mg PO DAILY carvediloL [Coreg] 25 mg PO BID Discontinued Atorvastatin [Lipitor] 40 mg PO HS Discharge Medication List Dapagliflozin Propanediol [Farxiga] 10 mg PO DAILY #30 tab 12/10/22 [Rx] Aspirin 81 mg PO DAILY #30 tab 12/11/22 [Rx] Spironolactone [Aldactone] 25 mg PO DAILY #30 tab 12/11/22 [Rx] hydrALAZINE HCL [Apresoline] 25 mg PO BID #90 tab 12/11/22 [Rx] Furosemide [Lasix] 40 mg PO DAILY 02/05/23 [History] metFORMIN HCL 1,000 mg PO BID 04/28/23 [History] carvediloL [Coreg] 25 mg PO BID 09/29/23 [History] Atorvastatin [Lipitor] 20 mg PO HS #30 tab 04/06/24 [Rx] Famotidine [Pepcid] 20 mg PO BID #60 tab 04/06/24 [Rx] Insulin Degludec [Tresiba Flextouch U-100 Pen] 15 units SQ DAILY #5 each 04/06/24 [Rx] Pen Needle, Diabetic [Pen Needle] 1 each MC DAILY #30 each 04/06/24 [Rx] Follow up Appointment(s)/Referral(s): [facility], [NON-STAFF] - As Needed ([facility] will call you to schedule your in home nursing visits. Your first visit will be tomorrow. ) [facility] [NON-STAFF] - As Needed ([facility] will deliver IV antibiotics and supplies to your home today. ) [facility] [NON-STAFF] - 1-2 days [facility] [NON-STAFF] - 1-2 days None,Stated [Primary Care Provider] - 1-2 days Clarence Tavares MD [STAFF PHYSICIAN] - 1 Week Aletha Heard DO [STAFF PHYSICIAN] - 1 Week Ambulatory/Diagnostic Orders: Basic Metabolic Panel [LAB.AMB] Time Frame: 1 Week, Location: None Selected Complete Blood Count w/diff [LAB.AMB] Location: None Selected Activity/Diet/Wound Care/Special Instructions: Establish care with a family doctor. Follow up with Dr Tavares in the office in 1 week Need to continue on half dose of lipitor while on IV antibiotics. Once completed can resume full dose of lipitor. Continue IV cefazolin for the next 6 weeks Discharge/Stand Alone Forms: [facility] Area PCPs Discharge Disposition: HOME WITH HOME HEALTH SERVICES
--- NOTE | 2024-04-06 12:20 | CA ---
Transthoracic Echo Report Name: Kelby Mckee Age: 59 Gender: M : 1965 Exam Date: 04/06/2024 09:54 Exam Location: [facility] Ht (in): 77 Wt (lb): 250 Ordering Physician: Mervat Harris Attending/Referring Phys: Color Card Maker Kelly Santillan RDCS Procedure CPT: Indications: bacteremia Cardiac Hx: Technical Quality: Technically difficult study Contrast 1: Definity Total Dose (mL): 2 Contrast 2: Total Dose (mL): MEASUREMENTS (Male / Female) Normal Values 2D ECHO LV Diastolic Diameter PLAX 4.9 cm 4.2 - 5.9 / 3.9 - 5.3 cm LV Systolic Diameter PLAX 3.0 cm IVS Diastolic Thickness 1.0 cm 0.6 - 1.0 / 0.6 - 0.9 cm LVPW Diastolic Thickness 0.9 cm 0.6 - 1.0 / 0.6 - 0.9 cm LV Relative Wall Thickness 0.4 LVOT Diameter 2.6 cm LV Diastolic Volume MOD BP 90.5 cm??? 67 - 155 / 56 - 104 cm??? LV Systolic Volume MOD BP 34.6 cm??? 22 - 58 / 19 - 49 cm??? LV Ejection Fraction MOD BP 61.7 % >= 55 % LV Cardiac Index MOD BP 1540.4 cm???/min???m??? LV Diastolic Volume MOD 4C 105.0 cm??? LV Systolic Volume MOD 4C 31.0 cm??? LV Ejection Fraction MOD 4C 70.5 % LV Cardiac Index MOD 4C 2042.7 cm???/min???m??? LV Diastolic Length 4C 8.5 cm LV Systolic Length 4C 6.3 cm LV Diastolic Volume MOD 2C 73.5 cm??? LV Systolic Volume MOD 2C 38.3 cm??? LV Ejection Fraction MOD 2C 47.9 % LV Cardiac Index MOD 2C 970.6 cm???/min???m??? LV Diastolic Length 2C 7.9 cm LV Systolic Length 2C 6.4 cm LA Volume 35.3 cm??? 18 - 58 / 22 - 52 cm??? LA Volume Index 14.1 cm???/m??? 16 - 28 cm???/m??? Ascending Aorta Diameter 3.4 cm DOPPLER AV Peak Velocity 140.6 cm/s AV Peak Gradient 7.9 mmHg AV Mean Velocity 95.6 cm/s AV Mean Gradient 4.2 mmHg AV Velocity Time Integral 27.4 cm LVOT Peak Velocity 122.5 cm/s LVOT Peak Gradient 6.0 mmHg LVOT Velocity Time Integral 21.9 cm LVOT Stroke Volume 114.4 cm??? LVOT Stroke Volume Index 46.5 ml/m??? LVOT Cardiac Index 3154.8 cm???/min???m??? AV Area Cont Eq vti 4.2 cm??? AV Area Cont Eq pk 4.6 cm??? MV Area PHT 3.1 cm??? Mitral E Point Velocity 61.7 cm/s Mitral A Point Velocity 80.7 cm/s Mitral E to A Ratio 0.8 MV Deceleration Time 247.1 ms PV Peak Velocity 74.9 cm/s PV Peak Gradient 2.2 mmHg FINDINGS Left Ventricle Left ventricular ejection fraction is estimated at 60 %. Left ventricular cavity size normal. Left ventricular wall thickness normal. No obvious regional wall motion abnormalities. Right Ventricle Mild right ventricular dilatation with normal function. Unable to estimate the right ventricular systolic pressure. Right Atrium Normal right atrial size. Left Atrium Normal left atrial size. Mitral Valve Structurally normal mitral valve.possible Small mitral valve vegetation. No evidence for mitral valve prolapse. No mitral stenosis. No mitral regurgitation. Aortic Valve Trileaflet aortic valve. No aortic stenosis. Trace aortic regurgitation. Tricuspid Valve Structurally normal tricuspid valve. No tricuspid stenosis. Trace tricuspid regurgitation. Pulmonic Valve Pulmonic valve not well visualized. No pulmonic stenosis. No pulmonic regurgitation. Pericardium No pericardial effusion. Aorta Normal size aortic root and proximal ascending aorta. CONCLUSIONS Normal LV systolic function There is an echo dense lesion attached to the anterior mitral leaflet which could represent a vegetation Consider TRAE for further evaluation Previewed by: Dr. Prem Jackson MD (Electronically Signed) Final Date: 06 April 2024 12:19
[2024-04-06] MEDS ORDERED: ATORVASTATIN 20 MG TAB PO SCH (21:00)
--- NOTE | 2024-04-06 22:54 | P.PN ---
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 On today's evaluation that is 04/06/2024,the patient denies any fever or any chills, patient is breathing comfortably on room air, the patient denies chest pain shortness of breath and no significant cough, patient denies abdominal pain, no nausea vomiting or diarrhea. Pain to the right foot has decreased in intensity. Patient did have ESR of 39 CRP is 2.40 blood culture repeat has been negative Objective - Vital Signs Vital signs: Vital Signs Temp 97.9 F 04/06/24 08:00 Pulse 75 04/06/24 08:00 Resp 18 04/06/24 08:00 BP 117/75 04/06/24 08:00 Pulse Ox 96 04/06/24 08:00 FiO2 Intake & Output 04/05/24 04/06/24 04/06/24 18:59 06:59 18:59 Weight 113.398 kg Other: Voiding Method Toilet Urinal # Voids 5 - Exam GENERAL DESCRIPTION: Middle-age male lying in bed in no distress RESPIRATORY SYSTEM: Unlabored breathing , decreased breath sounds at bases HEART: S1 S2 regular rate and rhythm , ABDOMEN: Soft , no tenderness EXTREMITIES: Right foot is currently dressed - Labs CBC & Chem 7: 04/04/24 04:40 04/04/24 04:40 Labs: Abnormal Lab Results - Last 24 Hours (Table) 04/05/24 04/05/24 04/05/24 Range/Units 11:36 16:24 20:30 POC Glucose (mg/dL) 318 H 352 H 300 H (70-110) mg/dL 04/06/24 Range/Units 06:50 POC Glucose (mg/dL) 170 H (70-110) mg/dL Microbiology - Last 24 Hours (Table) 04/03/24 11:13 Blood Culture - Preliminary Blood 03/31/24 12:48 Blood Culture - Final Blood 03/30/24 09:16 Blood Culture Gram Stain - Final Blood Blood Culture - Final Staphylococcus aureus Molecular ID 03/31/24 03:43 Blood Culture - Final Blood Assessment and Plan (1) Diabetic infection of right foot Status: Acute Code(s): E11.628 - TYPE 2 DIABETES MELLITUS WITH OTHER SKIN COMPLICATIONS; L08.9 - LOCAL INFECTION OF THE SKIN AND SUBCUTANEOUS TISSUE, UNSP SNOMED Code(s): 273726037 (2) Sepsis Status: Acute Code(s): A41.9 - SEPSIS, UNSPECIFIED ORGANISM SNOMED Code(s): 59883669 (3) Allergy to multiple antibiotics Status: Acute Code(s): Z88.1 - ALLERGY STATUS TO OTHER ANTIBIOTIC AGENTS SNOMED Code(s): 490503099 (4) Bacteremia Status: Acute Code(s): R78.81 - BACTEREMIA SNOMED Code(s): 5116291 Plan: 1patient presented to hospital with sepsis in this patient who did have fever tachycardia leukocytosis meeting criteria for SIRS/sepsis sources right diabetic infection in this patient presenting with diffuse swelling and redness and concern for possible abscess with previous multiple admission antibiotic exposure will need to cover for more resistant pathogen such as MRSA. 2patient with multiple antibiotic ALLERGIES that would limit the number of antibiotic safe to use. 3 CT of right foot with contrast did show small fluid collection concerning for possible abscess, patient did have I&D with no significant purulent drainage 4patient MRI did show small abscess however vascular surgery commended no further drainage echo report is still pending patient is insisting on going home he will get a dose of daptomycin so he does not miss any of his antibiotic today and resume cefazolin at home tomorrow and a close outpatient follow-up discussed with the WEB PAGE DEVELOPER for admitting team Dictation was produced using [employer] dictation software. please excuse any g rammatical, word or spelling errors. Time with Patient: Less than 30
== END 2024-04-06 12:43 | disposition home health service (06) | DRG 564 ==
LOC: EC 09:51 → 4SSUR 12:26 → 1SOBS 16:44 → 4SSUR 03-30 21:33
PROVIDERS: ADMIT Internal Medicine; ATTEND Internal Medicine
PROC: 0HBMXZZ Excision of Right Foot Skin, External Approach (ICD-10-PCS; principal; 2024-04-03 08:00)
PROC: 02HV33Z Insertion of Infusion Device into Superior Vena Cava, Percutaneous Approach (ICD-10-PCS; 2024-04-05)
DX: T87.43 Infection of amputation stump, right lower extremity (principal); A41.89 Other specified sepsis; L03.115 Cellulitis of right lower limb; I50.22 Chronic systolic (congestive) heart failure; M86.9 Osteomyelitis, unspecified; E87.20 Acidosis, unspecified; E11.628 Type 2 diabetes mellitus with other skin complications; Z79.4 Long term (current) use of insulin; Z79.84 Long term (current) use of oral hypoglycemic drugs; W45.0XXS Nail entering through skin, sequela; E11.40 Type 2 diabetes mellitus with diabetic neuropathy, unspecified; S91.341S Puncture wound with foreign body, right foot, sequela; L89.892 Pressure ulcer of other site, stage 2; E11.621 Type 2 diabetes mellitus with foot ulcer; E11.69 Type 2 diabetes mellitus with other specified complication; E78.5 Hyperlipidemia, unspecified; I11.0 Hypertensive heart disease with heart failure; K21.9 Gastro-esophageal reflux disease without esophagitis; L97.519 Non-pressure chronic ulcer of other part of right foot with unspecified severity; Y83.5 Amputation of limb(s) as the cause of abnormal reaction of the patient, or of later complication, without mention of misadventure at the time of the procedure; Z79.82 Long term (current) use of aspirin; Z79.899 Other long term (current) drug therapy; Z86.14 Personal history of Methicillin resistant Staphylococcus aureus infection; Z87.891 Personal history of nicotine dependence; Z88.1 Allergy status to other antibiotic agents; Z88.0 Allergy status to penicillin; Z20.822 Contact with and (suspected) exposure to COVID-19
CPT/HCPCS: 36415; 36573; 80048; 80053; 83605; 83735; 85025; 85027; 85652; 86140; 87040; 87070; 87075; 87077; 87186; 87205; 87636; 93005; 93306; 96365; 96366; 96375; 99291

== ENCOUNTER 2024-07-26 15:35 | Observation (INO) | payer BC ==
[2024-07-26 16:02] LABS: Basophils % (A) 1 %; Eosinophils # (A) 0.1 k/uL (0-0.7); Eosinophils % (A) 2 %; HCT 47.3 % (39.0-53.0); HGB 15.5 gm/dL (13.0-17.5); Lymphocytes # (A) 2.9 k/uL (1.0-4.8); Lymphocytes % (A) 38 %; MCH 29.4 pg (25.0-35.0); MCHC 32.7 g/dL (31.0-37.0); MCV 89.8 fL (80.0-100.0); Mean Platelet Volume 7.2; Monocytes # (A) 0.3 k/uL (0-1.0); Monocytes % (A) 5 %; Neutrophils # (A) 4.1 k/uL (1.3-7.7); Neutrophils % (A) 54 %; Platelet Count 155 k/uL (150-450); RBC 5.27 m/uL (4.30-5.90); RDW 13.5 % (11.5-15.5); WBC 7.6 k/uL (3.8-10.6)
--- NOTE | 2024-07-26 16:04 | XR ---
EXAMINATION TYPE: XR chest 2V DATE OF EXAM: 07/26/2024 3:58 PM COMPARISON: None. CLINICAL INDICATION: Male, 59 years old with history of Chest Pain, TECHNIQUE: XR chest 2V view(s) obtained. FINDINGS: The heart size is normal. The pulmonary vasculature is normal. The lungs are clear. There is hyperinflation flattening the diaphragms compatible with COPD. IMPRESSION: 1. No acute pulmonary process. 2. COPD [facility], , 07/26/2024 4:02 PM
[2024-07-26 16:11] LABS: ALT 28 U/L (4-49); AST 24 U/L (17-59); African American GFR (CKD) 72 (>60 ml/min/1.73 sqM); Albumin 4.7 g/dL (3.5-5.0); Alkaline Phosphatase 73 U/L (38-126); Anion Gap 11 mmol/L; Blood Urea Nitrogen 20 mg/dL (9-20); Calcium 9.2 mg/dL (8.4-10.2); Carbon Dioxide 29 mmol/L (22-30); Chloride 96 mmol/L (98-107); Glucose 208 mg/dL (74-99); Magnesium 1.6 mg/dL (1.6-2.3); Non-African American GFR(CKD) 62 (>60 ml/min/1.73 sqM); Potassium 4.8 mmol/L (3.5-5.1); Sodium 136 mmol/L (137-145); Total Protein 7.3 g/dL (6.3-8.2)
--- NOTE | 2024-07-26 16:23 | ED ---
Chest Pain HPI - General Chief Complaint: Chest Pain Stated Complaint: chest pain earlier today Time Seen by Provider: 07/26/24 15:46 Source: patient, RN notes reviewed Mode of arrival: ambulatory Limitations: no limitations - History of Present Illness Initial Comments: This is a 59-year-old male with history of AMI, heart failure and DM presenting with for transient chest pain at 1100 today. Patient states he began experiencing sudden onset left chest discomfort that was recurrent, lasting for 45 minutes total before spontaneous resolution after taking 324 chewable ASA that has not returned since. Denies associated SOB/dyspnea, pallor, diaphoresis, dizziness/lightheadedness. Patient endorses daily use of baby aspirin but otherwise denies use of blood thinners. MD Complaint: chest pain - Related Data Home Medications Medication Instructions Recorded Confirmed Furosemide [Lasix] 40 mg PO DAILY 02/05/23 07/26/24 metFORMIN HCL 1,000 mg PO BID 04/28/23 07/26/24 carvediloL [Coreg] 25 mg PO BID 09/29/23 07/26/24 Atorvastatin [Lipitor] 40 mg PO HS 07/26/24 07/26/24 Insulin Degludec [Tresiba 15 units SQ DAILY PRN 07/26/24 07/26/24 Flextouch U-100 Pen] Previous Rx's Medication Instructions Recorded Dapagliflozin Propanediol [Farxiga] 10 mg PO DAILY #30 tab 12/10/22 Aspirin 81 mg PO DAILY #30 tab 12/11/22 Spironolactone [Aldactone] 25 mg PO DAILY #30 tab 12/11/22 hydrALAZINE HCL [Apresoline] 25 mg PO BID #90 tab 12/11/22 Allergies Allergy/AdvReac Type Severity Reaction Status Date / Time levofloxacin [From Levaquin] Allergy Swelling, Verified 07/26/24 17:13 RASH Penicillins Allergy Unknown Verified 07/26/24 17:13 Childhood Review of Systems ROS Statement: Those systems with pertinent positive or pertinent negative responses have been documented in the HPI. ROS Other: All systems not noted in ROS Statement are negative. Past Medical History Past Medical History: Diabetes Mellitus, GERD/Reflux, Hyperlipidemia, Hypertension, Myocardial Infarction (PR) Additional Past Medical History / Comment(s): osteomyelitis and pain left foot, stepped on kristen nail October 2018,hx neuropathy History of Any Multi-Drug Resistant Organisms: MRSA Date of last positivie culture/infection: march 2022 MDRO Source:: toe Past Surgical History: Tonsillectomy Additional Past Surgical History / Comment(s): endoscopy, middle toe rt foot removed ,lft 2nd toe tip removed Past Anesthesia/Blood Transfusion Reactions: No Reported Reaction Past Psychological History: No Psychological Hx Reported Smoking Status: Former smoker Past Alcohol Use History: None Reported Past Drug Use History: None Reported - Past Family History Mother Family Medical History: Cancer Additional Family Medical History / Comment(s): breast cancer Father Family Medical History: Cancer Additional Family Medical History / Comment(s): lung cancer Sister(s) Family Medical History: Cancer Additional Family Medical History / Comment(s): lung cancer General Exam Limitations: no limitations General appearance: alert, in no apparent distress Head exam: Present: atraumatic, normocephalic, normal inspection Eye exam: Present: normal appearance, PERRL, EOMI. Absent: scleral icterus, conjunctival injection, periorbital swelling ENT exam: Present: normal exam, mucous membranes moist Neck exam: Present: normal inspection. Absent: tenderness, meningismus, lymphadenopathy Respiratory exam: Present: normal lung sounds bilaterally. Absent: respiratory distress, wheezes, rales, rhonchi, stridor Cardiovascular Exam: Present: regular rate, normal rhythm, normal heart sounds. Absent: systolic murmur, diastolic murmur, rubs, gallop, clicks GI/Abdominal exam: Present: soft, normal bowel sounds. Absent: distended, tenderness, guarding, rebound, rigid Extremities exam: Present: normal inspection, full ROM, normal capillary refill, other (Bilateral posterior tibialis pulse +2). Absent: tenderness, pedal edema, joint swelling, calf tenderness Back exam: Present: normal inspection Neurological exam: Present: alert, oriented X3, CN II-XII intact Psychiatric exam: Present: normal affect, normal mood Skin exam: Present: warm, dry, intact, normal color. Absent: rash Course Vital Signs 07/26/24 07/26/24 15:38 17:10 Temperature 97.9 F Pulse Rate 70 69 Respiratory 20 16 Rate Blood Pressure 143/77 139/81 O2 Sat by Pulse 97 95 Oximetry Chest Pain MDM - MDM Was pt. sent in by a medical professional or institution (, PA, QUALITY ASSURANCE MONITOR BODY, urgent care, hospital, or [facility]...) When possible be specific @ -[No] Did you speak to anyone other than the patient for history (EMS, parent, family, police, friend...)? What history was obtained from this source @ -[No] Did you review nursing and triage notes (agree or disagree)? Why? @ -[I reviewed and agree with nursing and triage notes] Were old charts reviewed (outside hosp., previous admission, EMS record, old EKG, old radiological studies, urgent care reports/EKG's, [facility] records)? Report findings @ -[No old charts were reviewed] Differential Diagnosis (chest pain, altered mental status, abdominal pain women, abdominal pain men, vaginal bleeding, weakness, fever, dyspnea, syncope, headache, dizziness, GI bleed, back pain, seizure, CVA, palpatations, mental health, musculoskeletal)? @ -Differential Chest Pain: Stable Angina, Unstable Angina, STEMI, NSTEMI Aortic Dissection, Pneumothorax, Musculoskeletal, Esophageal Spasm GERD, Cholecystitis, Pancreatitis, Zoster, this is not meant to be an all-inclusive list. EKG interpreted by me (3pts min.). @ -Sinus rhythm without ST deviation or T wave inversion. Ventricular rate 71 bpm, VINCENT 169 ms, QRS duration 8 106 ms, QTc 422 ms. X-rays interpreted by me (1pt min.). @ -CXR shows hyperinflation and flattening of diaphragm indicating COPD CT interpreted by me (1pt min.). @ -[None done] U/S interpreted by me (1pt. min.). @ -[None done] What testing was considered but not performed or refused? (CT, X-rays, U/S, labs)? Why? @ -[None] What meds were considered but not given or refused? Why? @ -[None] Did you discuss the management of the patient with other professionals (professionals i.e. , PA, QUALITY ASSURANCE MONITOR BODY, lab, RT, psych nurse, social science research assistant, coremaker bench, teacher, chief science officer, case advocate)? Give summary @ -[No] Was smoking cessation discussed for >3mins.? @ -[No] Was critical care preformed (if so, how long)? @ -[No] Were there social determinants of health that impacted care today? How? (Homelessness, low income, unemployed, alcoholism, drug addiction, transportation, low edu. Level, literacy, decrease access to med. care, correction, rehab)? @ -[No] Was there de-escalation of care discussed even if they declined (Discuss DNR or withdrawal of care, Hospice)? DNR status @ -[No] What co-morbidities impacted this encounter? (DM, HTN, Smoking, COPD, CAD, Cancer, CVA, ARF, Chemo, Hep., AIDS, mental health diagnosis, sleep apnea, morbid obesity)? @ -[None] Was patient admitted / discharged? Hospital course, mention meds given and route, prescriptions, significant lab abnormalities, going to OR and other pertinent info. @ -[hospital course] Undiagnosed new problem with uncertain prognosis? @ -[No] Drug Therapy requiring intensive monitoring for toxicity (Heparin, Nitro, Insulin, Cardizem)? @ -[No] Were any procedures done? @ -[No] Diagnosis/symptom? @ -Angina Acute, or Chronic, or Acute on Chronic? @ -Acute Uncomplicated (without systemic symptoms) or Complicated (systemic symptoms)? @ -Uncomplicated Side effects of treatment? @ -[No] Exacerbation, Progression, or Severe Exacerbation? @ -[No] Poses a threat to life or bodily function? How? (Chest pain, [place], PR, pneumonia, PE, COPD, DKA, ARF, appy, cholecystitis, CVA, Diverticulitis, Homicidal, Suicidal, threat to staff... and all critical care pts) @ -[No] Disposition Clinical Impression: Chest pain Disposition: ADMITTED IP TO THIS [facility] Condition: Good Is patient prescribed a controlled substance at d/c from ED?: No Referrals: None,Stated [Primary Care Provider] - 1-2 days Mike Cordoba MD [STAFF PHYSICIAN] - 1-2 days Time of Disposition: 17:37
[2024-07-26 16:33] LABS: Prothrombin Time 10.9 sec (10.0-12.5)
[2024-07-26 16:44] LABS: Partial Thromboplastin Time 21.7 sec (22.0-30.0)
[2024-07-26] MEDS: SODIUM CHLORIDE 0.9% 1,000 ML IV STA (17:05)
[2024-07-26] MEDS ORDERED: NALOXONE 0.4 MG/ML 1 ML VIAL IV PRN (18:01)
[2024-07-26] MEDS ORDERED: ACETAMINOPHEN TAB 325 MG TAB PO PRN (18:01)
[2024-07-26] MEDS ORDERED: MORPHINE SULFATE 4 MG/ML SYRINGE IV PRN (18:01)
[2024-07-26] MEDS ORDERED: INSULIN GLARGINE (LANTUS) 100 UNIT/ML SYR SQ PRN (18:04)
[2024-07-26] MEDS: metFORMIN 500 MG TAB PO SCH (21:07)
[2024-07-26] MEDS: hydrALAZINE HCL 25 MG TAB PO SCH (21:07)
[2024-07-26] MEDS: ATORVASTATIN 40 MG TAB PO SCH (21:07)
[2024-07-26] MEDS: carvediloL 12.5 MG TAB PO SCH (21:07)
[2024-07-27 03:49] VITALS: RESP 15; TEMP 98.4
[2024-07-27 06:05] LABS: Glucose,Whole Blood 164 mg/dL (70-110)
[2024-07-27 07:37] VITALS: BP 104/61; PULSE 59
[2024-07-27] MEDS: SPIRONOLACTONE 25 MG TAB PO SCH (08:27)
[2024-07-27] MEDS: FUROSEMIDE 40 MG TAB PO SCH (08:27)
[2024-07-27] MEDS: DAPAGLIFLOZIN PROPANEDIOL 10 MG TABLET PO SCH (08:27)
[2024-07-27] MEDS: ASPIRIN 81 MG PO SCH (08:27)
--- NOTE | 2024-07-27 09:45 | P.CRDCN ---
History of Present Illness History of present illness: HISTORY OF PRESENT ILLNESS: This is a 59-year-old male with a past medical history significant for coronary artery disease, nonischemic cardiomyopathy, valvular heart disease, dilated tho racic aorta, hypertension, hyperlipidemia, diabetes, and diabetic foot ulcer. Patient follows in the office with Dr. Cordoba. We have been asked to see the patient in consultation for chest pain. Patient examined at the bedside. Patient states yesterday he was at work when he developed chest discomfort. He states the pain was on the left side of his chest and would last for 1 to 3 seconds and then go away. He states this happened for 5 times over the course of 30 minutes. He states that he did take an aspirin and has not had any discomfort since that time. He states yesterday was the first episode of chest discomfort he has had. The pain was not worse with chest wall palpation or deep inspiration. DIAGNOSTICS: - EKG reveals sinus mechanism with no signs of acute ischemia. - Chest xray negative for acute process. COPD. - Laboratory data: WBC 7.6. Hemoglobin 15.5. Platelet count 155. Sodium 136. Potassium 4.8. BUN 20. Creatinine 1.27. Troponin negative x 4 - Current home cardiac medications include aspirin 81 mg daily, Lipitor 40 mg at night, Farxiga 10 mg daily, Lasix 40 mg daily, spironolactone 25 mg daily, carvedilol 25 mg twice a day, hydralazine 25 mg twice a day. - Most recent echocardiogram obtained in April 2024 revealing 60%, no obvious regional wall motion abnormalities, trace aortic regurgitation, trace tricuspid regurgitation, echodense lesion attached to the anterior mitral leaflet which could represent a vegetation. - Cardiac catheterization history: 12/01/2022 revealing intermediate to severe disease of the OM1 and intermediate disease of the proximal LAD REVIEW OF SYSTEMS: At the time of my exam: CONSTITUTIONAL: Denies fever or chills. HEENT: Denies blurred vision, vision changes, or eye pain. Denies hemoptysis CARDIOVASCULAR: Denies chest pain. Denies orthopnea. Denies PND. Denies palpitations RESPIRATORY: Denies shortness of breath. GASTROINTESTINAL: Denies abdominal pain. Denies nausea or vomiting. HEMATOLOGIC: Denies bleeding disorders. GENITOURINARY: Denies any blood in urine. SKIN: Denies pruitis. Denies rash. PHYSICAL EXAM: VITAL SIGNS: Reviewed. GENERAL: Well-developed in no acute distress. HEENT: Head is normocephalic. Pupils are equal, round. Sclerae anicteric. Mucous membranes of the mouth are moist. Neck supple. No JVD or thyromegaly LUNGS: Respirations even and unlabored. Lungs essentially clear to auscultation bilaterally. HEART: Regular rate and rhythm. S1 and S2 heard. ABDOMEN: Soft. Nondistended. Nontender. EXTREMITIES: Normal range of motion. No clubbing or cyanosis. Peripheral pulses intact. No lower extremity edema NEUROLOGIC: Awake and alert. Oriented x 3. ASSESSMENT: Chest pain, atypical, troponin negative x 4 Coronary artery disease with known intermediate to severe disease of the OM1 and intermediate disease of the proximal LAD per cath 11/2022 History of nonischemic cardiomyopathy with recovered EF most recently 60% History of dilated thoracic aorta Hypertension Hyperlipidemia Diabetes History of lower extremity ulcerations requiring debridement and TMA PLAN: An acute coronary event has been ruled out No need to repeat echocardiogram as this was performed in April 2024 Resume home cardiac medications including hydralazine, carvedilol, spironolactone, furosemide, Farxiga, Lipitor, and aspirin Patient was given his carvedilol this morning by nursing so unable to perform stress echo. Discussed options with patient including having nuclear stress test. However patient declined. Additionally, offered patient to stay until tomorrow to have stress echocardiogram performed. Patient states he does not want to stay until tomorrow. Discussed discharge home today and outpatient stress testing and patient was agreeable. Patient may be discharged home today from cardiac standpoint and follow in the office with Dr. Cordoba Nurse practitioner note has been reviewed by physician. Signing provider agrees with the documented findings, assessment, and plan of care documented by TURBINE SUBASSEMBLER as a scribe. Past Medical History Past Medical History: Diabetes Mellitus, GERD/Reflux, Hyperlipidemia, Hypertension, Myocardial Infarction ([place]) Additional Past Medical History / Comment(s): osteomyelitis and pain left foot, stepped on kristen nail October 2018,hx neuropathy Last Myocardial Infarction Date:: unknown History of Any Multi-Drug Resistant Organisms: MRSA Date of last positivie culture/infection: march 2022 MDRO Source:: toe Past Surgical History: Tonsillectomy Additional Past Surgical History / Comment(s): endoscopy, middle toe rt foot removed ,lft 2nd toe tip removed Past Anesthesia/Blood Transfusion Reactions: No Reported Reaction Past Psychological History: No Psychological Hx Reported Smoking Status: Former smoker Past Alcohol Use History: None Reported Additional Past Alcohol Use History / Comment(s): STARTED SMOKING AT AROUND 21 SMOKED LESS 1/2PPD QUIT 1989 Past Drug Use History: None Reported - Past Family History Mother Family Medical History: Cancer Additional Family Medical History / Comment(s): breast cancer Father Family Medical History: Cancer Additional Family Medical History / Comment(s): lung cancer Sister(s) Family Medical History: Cancer Additional Family Medical History / Comment(s): lung cancer Medications and Allergies Home Medications Medication Instructions Recorded Confirmed Type Dapagliflozin Propanediol [Farxiga] 10 mg PO DAILY #30 tab 12/10/22 07/26/24 Rx Aspirin 81 mg PO DAILY #30 tab 12/11/22 07/26/24 Rx Spironolactone [Aldactone] 25 mg PO DAILY #30 tab 12/11/22 07/26/24 Rx hydrALAZINE HCL [Apresoline] 25 mg PO BID #90 tab 12/11/22 07/26/24 Rx Furosemide [Lasix] 40 mg PO DAILY 02/05/23 07/26/24 History metFORMIN HCL 1,000 mg PO BID 04/28/23 07/26/24 History carvediloL [Coreg] 25 mg PO BID 09/29/23 07/26/24 History Atorvastatin [Lipitor] 40 mg PO HS 07/26/24 07/26/24 History Insulin Degludec [Tresiba 15 units SQ DAILY PRN 07/26/24 07/26/24 History Flextouch U-100 Pen] Allergies Allergy/AdvReac Type Severity Reaction Status Date / Time levofloxacin [From Levaquin] Allergy Swelling, Verified 07/26/24 17:13 RASH Penicillins Allergy Unknown Verified 07/26/24 17:13 Childhood Physical Exam Vitals: Vital Signs Temp Pulse Pulse Resp BP BP Pulse Ox 07/27/24 07:00 98.4 F 59 L 15 104/61 95 07/27/24 03:27 98.4 F 62 15 132/78 98 07/26/24 22:16 98.0 F 66 16 149/84 97 07/26/24 22:05 66 18 124/76 97 07/26/24 18:55 80 15 128/76 98 07/26/24 17:10 69 16 139/81 95 07/26/24 15:38 97.9 F 70 20 143/77 97 Intake and Output 07/26/24 07/27/24 07/27/24 22:59 06:59 14:59 Other: # Voids 2 Weight 117.934 kg Results 07/26/24 15:41 07/26/24 15:41 Cardiac Enzymes 07/26/24 07/26/24 07/26/24 Range/Units 15:41 15:41 17:07 AST 24 (17-59) U/L Troponin I <0.012 <0.012 (0.000-0.034) ng/mL 07/26/24 07/26/24 Range/Units 20:19 23:43 AST (17-59) U/L Troponin I <0.012 <0.012 (0.000-0.034) ng/mL Coagulation 07/26/24 Range/Units 15:41 PT 10.9 (10.0-12.5) sec APTT 21.7 L (22.0-30.0) sec CBC 07/26/24 Range/Units 15:41 WBC 7.6 (3.8-10.6) k/uL RBC 5.27 (4.30-5.90) m/uL Hgb 15.5 (13.0-17.5) gm/dL Hct 47.3 (39.0-53.0) % Plt Count 155 (150-450) k/uL Comprehensive Metabolic Panel 07/26/24 Range/Units 15:41 Sodium 136 L (137-145) mmol/L Potassium 4.8 (3.5-5.1) mmol/L Chloride 96 L (98-107) mmol/L Carbon Dioxide 29 (22-30) mmol/L BUN 20 (9-20) mg/dL Creatinine 1.27 H (0.66-1.25) mg/dL Glucose 208 H (74-99) mg/dL Calcium 9.2 (8.4-10.2) mg/dL AST 24 (17-59) U/L ALT 28 (4-49) U/L Alkaline Phosphatase 73 (38-126) U/L Total Protein 7.3 (6.3-8.2) g/dL Albumin 4.7 (3.5-5.0) g/dL Current Medications Generic Name Dose Route Start Last Admin Trade Name Freq PRN Reason Stop Dose Admin Acetaminophen 650 mg 07/26/24 18:01 Acetaminophen Tab 325 Mg Tab PO Q6HR PRN Mild Pain or Fever > 100.5 Aspirin 81 mg 07/27/24 09:00 Aspirin 81 Mg PO DAILY MOOSE Atorvastatin Calcium 40 mg 07/26/24 21:00 07/26/24 21:07 Atorvastatin 40 Mg Tab PO 40 mg HS MOOSE Administration Carvedilol 25 mg 07/26/24 21:00 07/27/24 06:17 Carvedilol 12.5 Mg Tab PO 25 mg AC-BID MOOSE Administration Dapagliflozin 10 mg 07/27/24 09:00 Dapagliflozin Propanediol 10 Mg Tablet PO DAILY MOOSE Furosemide 40 mg 07/27/24 09:00 Furosemide 40 Mg Tab PO DAILY MOOSE Hydralazine HCl 25 mg 07/26/24 21:00 07/26/24 21:07 Hydralazine Hcl 25 Mg Tab PO 25 mg BID MOOSE Administration Insulin Glargine 15 unit 07/26/24 18:04 Insulin Glargine (Lantus) 100 Unit/Ml Syr SQ DAILY PRN Blood Sugar - High Metformin HCl 1,000 mg 07/26/24 21:00 07/27/24 06:17 Metformin 500 Mg Tab PO 1,000 mg AC-BID MOOSE Administration Morphine Sulfate 4 mg 07/26/24 18:01 Morphine Sulfate 4 Mg/Ml Syringe IV Q4HR PRN Severe Pain (Scale 7 to 10) Naloxone HCl 0.2 mg 07/26/24 18:01 Naloxone 0.4 Mg/Ml 1 Ml Vial IV Q2M PRN Opioid Reversal Spironolactone 25 mg 07/27/24 09:00 Spironolactone 25 Mg Tab PO DAILY MOOSE Intake and Output 07/26/24 07/27/24 07/27/24 22:59 06:59 14:59 Other: # Voids 2 Weight 117.934 kg 07/26/24 15:41 07/26/24 15:41
[2024-07-27] MEDS ORDERED: DEXTROSE 50% SYRINGE 50 ML IVP PRN ×2 (10:15)
[2024-07-27] MEDS ORDERED: INSULIN LISPRO (HumaLOG) 100 UNIT/ML 10 mL VL SQ SCH (12:30)
--- NOTE | 2024-07-28 15:48 | P.HPIM ---
History of Present Illness H&P Date: 07/27/24 This is a 59-year-old male who presented to the emergency department with chest pain that had been ongoing and causing heaviness with left-sided arm and shoulder pain as well. Patient does not have a primary care provider and follows with Dr. Cordoba cardiology in the outpatient setting with a history of hypertension and hyperlipidemia. Patient reports he receives his medications from cardiology. Patient was admitted under observation for cardiology evaluation. Patient home medications were resumed by the ER and patient received his morning dose of Coreg and cardiology evaluated and rounded mat worker recommending stress test although unable to do as patient received his Coreg. Recommending possible stress the next day. Patient reported his chest pain was resolved and did not want to wait and stay in the hospital any further for testing in the AM. Discussed with cardiology and has been cleared for discharge with outpatient follow-up to discuss with Dr. Cordoba his primary cardiol ogist regarding outpatient stress testing and/or cardiac catheterization if needed. Troponins x 4 were negative, other labs including CBC within normal limits, sodium 136, potassium 4.8, creatinine mildly elevated at 1.27, magnesium 1.6. Chest x-ray showed no acute pulmonary process and COPD with hyperinflation. EKG showed sinus bradycardia. REVIEW OF SYSTEMS: CONSTITUTIONAL: No fever, no malaise, no fatigue. HEENT: No recent visual problems or hearing problems. Denied any sore throat. CARDIOVASCULAR: No further reports of chest pain, orthopnea, PND, no palpitations, no syncope. PULMONARY: No shortness of breath, no cough, no hemoptysis. GASTROINTESTINAL: No diarrhea, no nausea, no vomiting, no abdominal pain. NEUROLOGICAL: No headaches, no weakness, no numbness. HEMATOLOGICAL: Denies any bleeding or petechiae. GENITOURINARY: Denies any burning micturition, frequency, or urgency. MUSCULOSKELETAL/RHEUMATOLOGICAL: Denies any joint pain, swelling, or any muscle pain. ENDOCRINE: Denies any polyuria or polydipsia. The rest of the 14-point review of systems is negative. PHYSICAL EXAMINATION: GENERAL: The patient is alert and oriented x3, not in any acute distress. Well developed, well nourished. Obese HEENT: Pupils are round and equally reacting to light. EOMI. No scleral icterus. No conjunctival pallor. Normocephalic, atraumatic. No pharyngeal erythema. No thyromegaly. CARDIOVASCULAR: S1 and S2 present. No murmurs, rubs, or gallops. PULMONARY: Chest is clear to auscultation, no wheezing or crackles. ABDOMEN: Soft, nontender, nondistended, normoactive bowel sounds. No palpable organomegaly. MUSCULOSKELETAL: No joint swelling or deformity. EXTREMITIES: No cyanosis, clubbing, or pedal edema. NEUROLOGICAL: Gross neurological examination did not reveal any focal deficits. SKIN: No rashes. Assessment: Chest pain, ruled out ACS, troponins x 4 were negative History of hypertension History of hyperlipidemia Obesity with a BMI of 30 History of diabetes mellitus, type II, [id number] GERD Previous myocardial infarction Previous history of MRSA infections with osteomyelitis in the left foot in 2019 Former smoker GI prophylaxis DVT prophylaxis Full code Plan: Patient was admitted under observation for cardiology evaluation for chest pain Patient received his home medications of Coreg and evaluated by cardiology recommending stress test although unable to perform as he received the Coreg and recommending waiting a day and having the stress on the next day. Patient reported his chest pain was resolved and did not want to stay hospitalized to await a stress test. Patient has been cleared by cardiology to follow-up with his primary greens cutter Dr. Cordoba in the outpatient setting. Patient will be discharged today. Please refer to cardiology consultation notes for further HPI. The impression and plan of care has been dictated by Alexandria Shoemaker, Nurse Practitioner as directed. Dr. Nessa MD I have performed a history and examination and MDM of this patient, discussed the same with the dictator, and agree with the dictator's assessment and plan as written ,documented as a scribe. Based on total visit time, I have performed more than 50% of the visit. Past Medical History Past Medical History: Diabetes Mellitus, GERD/Reflux, Hyperlipidemia, Hyperte nsion, Myocardial Infarction ([place]) Additional Past Medical History / Comment(s): osteomyelitis and pain left foot, stepped on kristen nail October 2018,hx neuropathy Last Myocardial Infarction Date:: unknown History of Any Multi-Drug Resistant Organisms: MRSA Date of last positivie culture/infection: march 2022 MDRO Source:: toe Past Surgical History: Tonsillectomy Additional Past Surgical History / Comment(s): endoscopy, middle toe rt foot removed ,lft 2nd toe tip removed Past Anesthesia/Blood Transfusion Reactions: No Reported Reaction Past Psychological History: No Psychological Hx Reported Smoking Status: Former smoker Past Alcohol Use History: None Reported Additional Past Alcohol Use History / Comment(s): STARTED SMOKING AT AROUND 21 SMOKED LESS 1/2PPD 1989 Past Drug Use History: None Reported - Past Family History Mother Family Medical History: Cancer Additional Family Medical History / Comment(s): breast cancer Father Family Medical History: Cancer Additional Family Medical History / Comment(s): lung cancer Sister(s) Family Medical History: Cancer Additional Family Medical History / Comment(s): lung cancer Medications and Allergies Home Medications Medication Instructions Recorded Confirmed Type Dapagliflozin Propanediol [Farxiga] 10 mg PO DAILY #30 tab 12/10/22 07/26/24 Rx Aspirin 81 mg PO DAILY #30 tab 12/11/22 07/26/24 Rx Spironolactone [Aldactone] 25 mg PO DAILY #30 tab 12/11/22 07/26/24 Rx hydrALAZINE HCL [Apresoline] 25 mg PO BID #90 tab 12/11/22 07/26/24 Rx Furosemide [Lasix] 40 mg PO DAILY 02/05/23 07/26/24 History metFORMIN HCL 1,000 mg PO BID 04/28/23 07/26/24 History carvediloL [Coreg] 25 mg PO BID 09/29/23 07/26/24 History Atorvastatin [Lipitor] 40 mg PO HS 07/26/24 07/26/24 History Insulin Degludec [Tresiba 15 units SQ DAILY PRN 07/26/24 07/26/24 History Flextouch U-100 Pen] Acetaminophen Tab [Tylenol] 650 mg PO Q6HR PRN tab 07/27/24 Rx Allergies Allergy/AdvReac Type Severity Reaction Status Date / Time levofloxacin [From Levaquin] Allergy Swelling, Verified 07/26/24 17:13 RASH Penicillins Allergy Unknown Verified 07/26/24 17:13 Childhood Physical Exam Vitals: Vital Signs Temp Pulse Pulse Resp BP BP Pulse Ox 07/27/24 07:00 98.4 F 59 L 15 104/61 95 07/27/24 03:27 98.4 F 62 15 132/78 98 07/26/24 22:16 98.0 F 66 16 149/84 97 07/26/24 22:05 66 18 124/76 97 07/26/24 18:55 80 15 128/76 98 07/26/24 17:10 69 16 139/81 95 07/26/24 15:38 97.9 F 70 20 143/77 97 Intake and Output 07/26/24 07/27/24 07/27/24 22:59 06:59 14:59 Intake Total 118 Balance 118 Intake: Oral 118 Other: # Voids 2 Weight 117.934 kg Results CBC & Chem 7: 07/26/24 15:41 07/26/24 15:41 Labs: Abnormal Lab Results - Last 24 Hours (Table) 07/26/24 07/26/24 07/27/24 Range/Units 15:41 15:41 06:03 APTT 21.7 L (22.0-30.0) sec Sodium 136 L (137-145) mmol/L Chloride 96 L (98-107) mmol/L Creatinine 1.27 H (0.66-1.25) mg/dL Glucose 208 H (74-99) mg/dL POC Glucose (mg/dL) 164 H (70-110) mg/dL
--- NOTE | 2024-07-28 15:50 | P.DS ---
Providers Date of admission: 07/26/24 17:31 Expected date of discharge: 07/27/24 Attending physician: Gia Kent Consults: 07/26/24 18:01 Consult Physician Stat Consulting Provider: Osmar Mckinney Consult Reason/Comments: Chest pain Do you want consulting provider notified?: Yes, Notify in am Primary care physician: Stated None Hospital Course: Final diagnosis Chest pain, ruled out ACS, troponins x 4 were negative History of hypertension History of hyperlipidemia Obesity with a BMI of 30 History of diabetes mellitus, type II, [id number] GERD Previous myocardial infarction Previous history of MRSA infections with osteomyelitis in the left foot in 2019 Former smoker GI prophylaxis DVT prophylaxis Full code Discharge disposition Patient is being discharged in a stable condition with guarded prognosis to home. Patient will follow-up with primary hearing consultant Dr. Cordoba at his scheduled appointment this week in the outpatient setting upon discharge. Patient is to continue with current medications and also provided with resources to establish with a primary care provider outpatient. Total time taken is greater than 35 minutes. Hospital course This is a 59-year-old male who presented to the emergency department with chest pain that had been ongoing and causing heaviness with left-sided arm and shoulder pain as well. Patient does not have a primary care provider and follows with Dr. Cordoba cardiology in the outpatient setting with a history of hypertension and hyperlipidemia. Patient reports he receives his medications from cardiology. Patient was admitted under observation for cardiology evaluation. Patient home medications were resumed by the ER and patient received his morning dose of Coreg and cardiology evaluated and rounded asparagus cutter recommending stress test although unable to do as patient received his Coreg. Recommending possible stress the next day. Patient reported his chest pain was resolved and did not want to wait and stay in the hospital any further for testing in the AM. Discussed with cardiology and has been cleared for discharge with outpatient follow-up to discuss with Dr. Cordoab his primary hearing consultant regarding outpatient stress testing and/or cardiac catheterization if needed. Troponins x 4 were negative, other labs including CBC within normal limits, sodium 136, potassium 4.8, creatinine mildly elevated at 1.27, magnesium 1.6. Chest x-ray showed no acute pulmonary process and COPD with hyperinflation. EKG showed sinus bradycardia. Patient was admitted under observation for cardiology evaluation for chest pain Patient received his home medications of Coreg and evaluated by cardiology recommending stress test although unable to perform as he received the Coreg and recommending waiting a day and having the stress on the next day. Patient reported his chest pain was resolved and did not want to stay hospitalized to await a stress test. Patient has been cleared by cardiology to follow-up with his primary hearing consultant Dr. Cordoba in the outpatient setting. Patient will be discharged today. Please refer to cardiology consultation notes for further HPI. PHYSICAL EXAMINATION: GENERAL: The patient is alert and oriented x3, not in any acute distress. Well developed, well nourished. Obese HEENT: Pupils are round and equally reacting to light. EOMI. No scleral icterus. No conjunctival pallor. Normocephalic, atraumatic. No pharyngeal erythema. No thyromegaly. CARDIOVASCULAR: S1 and S2 present. No murmurs, rubs, or gallops. PULMONARY: Chest is clear to auscultation, no wheezing or crackles. ABDOMEN: Soft, nontender, nondistended, normoactive bowel sounds. No palpable organomegaly. MUSCULOSKELETAL: No joint swelling or deformity. EXTREMITIES: No cyanosis, clubbing, or pedal edema. NEUROLOGICAL: Gross neurological examination did not reveal any focal deficits. SKIN: No rashes. Please refer to medication reconciliation sheet for a list of medications. The impression and plan of care has been dictated by Alexandria Shoemaker, Nurse Practitioner as directed. Dr. Nessa MD I have performed a history and examination and MDM of this patient, discussed the same with the dictator, and agree with the dictator's assessment and plan as written ,documented as a scribe. Based on total visit time, I have performed more than 50% of the visit. Patient Condition at Discharge: Good Plan - Discharge Summary New Discharge Prescriptions: New Acetaminophen Tab [Tylenol] 650 mg PO Q6HR PRN tab PRN Reason: Mild Pain Or Fever > 100.5 Continue hydrALAZINE HCL [Apresoline] 25 mg PO BID #90 tab metFORMIN HCL 1,000 mg PO BID Atorvastatin [Lipitor] 40 mg PO HS Insulin Degludec [Tresiba Flextouch U-100 Pen] 15 units SQ DAILY PRN PRN Reason: Blood Sugar - High Dapagliflozin Propanediol [Farxiga] 10 mg PO DAILY #30 tab Spironolactone [Aldactone] 25 mg PO DAILY #30 tab Aspirin 81 mg PO DAILY #30 tab Furosemide [Lasix] 40 mg PO DAILY carvediloL [Coreg] 25 mg PO BID Discharge Medication List Dapagliflozin Propanediol [Farxiga] 10 mg PO DAILY #30 tab 12/10/22 [Rx] Aspirin 81 mg PO DAILY #30 tab 12/11/22 [Rx] Spironolactone [Aldactone] 25 mg PO DAILY #30 tab 12/11/22 [Rx] hydrALAZINE HCL [Apresoline] 25 mg PO BID #90 tab 12/11/22 [Rx] Furosemide [Lasix] 40 mg PO DAILY 02/05/23 [History] metFORMIN HCL 1,000 mg PO BID 04/28/23 [History] carvediloL [Coreg] 25 mg PO BID 09/29/23 [History] Atorvastatin [Lipitor] 40 mg PO HS 07/26/24 [History] Insulin Degludec [Tresiba Flextouch U-100 Pen] 15 units SQ DAILY PRN 07/26/24 [History] Acetaminophen Tab [Tylenol] 650 mg PO Q6HR PRN tab 07/27/24 [Rx] Follow up Appointment(s)/Referral(s): Mike Cordoba MD [STAFF PHYSICIAN] - 1-2 days (Office will call patient with appoinmtment ) Ning Guzman MD [STAFF PHYSICIAN] - 1 Week Patient Instructions/Handouts: Chest Pain (GEN) Activity/Diet/Wound Care/Special Instructions: Activity limited until follow-up Follow-up with primary care provider to establish Follow-up with Dr. Cordoba and discuss outpatient stress testing Continue taking medications as prescribed If having any further chest pain symptoms, please call 911 or go to the nearest ER Discharge Disposition: HOME SELF-CARE
== END 2024-07-27 11:25 | disposition home or self-care (01) ==
LOC: EC 15:35 → 6NMEDSUR 17:31
PROVIDERS: ADMIT Hospitalist; ATTEND Hospitalist
DX: R07.89 Other chest pain (principal); I25.10 Atherosclerotic heart disease of native coronary artery without angina pectoris; I42.8 Other cardiomyopathies; I10 Essential (primary) hypertension; E78.5 Hyperlipidemia, unspecified; E11.40 Type 2 diabetes mellitus with diabetic neuropathy, unspecified; K21.9 Gastro-esophageal reflux disease without esophagitis; E66.9 Obesity, unspecified; I25.2 Old myocardial infarction; Z68.30 Body mass index [BMI] 30.0-30.9, adult; Z86.14 Personal history of Methicillin resistant Staphylococcus aureus infection; Z87.891 Personal history of nicotine dependence; Z79.4 Long term (current) use of insulin; Z79.82 Long term (current) use of aspirin; Z79.84 Long term (current) use of oral hypoglycemic drugs; Z79.899 Other long term (current) drug therapy; Z88.0 Allergy status to penicillin; Z88.1 Allergy status to other antibiotic agents
CPT/HCPCS: 99285; 36415; 93005; 80053; 83735; 84484; 85025; 85610; 85730; 71046; G0378 ×2